=== PATIENT | male | born 1940 | race Caucasian/White ===

== ENCOUNTER 2017-06-27 00:38 | Inpatient (IN) | payer MEDICARE, SELFPAY ==
[2017-06-27] VITALS (15 sets, daily range): BP systolic 134–185; BP diastolic 79–116; PULSE 90–115; RESP 16–20; TEMP 36.9–37.6; O2SAT 95–100; BMI 39.5
--- NOTE | 2017-06-27 01:26 | CT_ITS ---
STUDY: CT ABDOMEN AND PELVIS WITHOUT CONTRAST REASON FOR EXAM: Male, 77 years old. Abdominal pain RADIATION DOSAGE (If Supplied By Facility): CTDIvol = ( 23.53 ) mGy, DLP = ( 1287.20 ) mGycm TECHNIQUE: Transaxial images were obtained from the dome of the diaphragm to the symphysis pubis without oral contrast, and without intravenous contrast. Sagittal and coronal images were reconstructed. Individualized dose optimization techniques were used for this CT. COMPARISON: None. FINDINGS: Peripheral fibrotic lung changes. The visualized portions of the heart are within normal limits. Normal liver. Distended gallbladder. Splenomegaly, with spleen measuring 15.6 cm in length. Splenic granulomata. Acute pancreatitis is noted with diffuse pancreatic edema and adjacent fatty stranding. No pseudocysts are seen at this time. Normal bilateral adrenal glands. Normal right kidney. Nonobstructing left renal calculi, the largest measuring 8 mm. Normal visualized stomach. Normal small intestine. Normal colon. The appendix is visualized and appears normal. There is diffuse atherosclerotic calcification of the abdominal aorta, without a demonstrated aneurysm. Normal inferior vena cava. Normal retroperitoneum. Normal urinary bladder. Normal abdominal wall. There are diffuse degenerative changes of the visualized lumbar spine. Metallic fragments near the right pubic bone. This may be related to remote trauma. CT/Abdomen/Pelvis without Cont IMPRESSION: Acute pancreatitis. No pseudocysts are seen. Distended gallbladder. No evidence of acute intestinal pathology or acute obstructive uropathy.. Electronically Signed: Ton Daly MD at 2:27 EST Tel , Service support ,
[2017-06-27] MEDS: Ondansetron 4 MG/2 ML Vial IV ×4 (01:32→17:50)
[2017-06-27 01:34] LABS: Absolute Lymphocyte Count 1.42 X10^3/ul (0.83-4.51); Absolute Neutrophil Count 14.9 X10^3/uL (2.0-7.7); Basophil# 0.04 X10^3/uL; Basophil% 0.2 % (0-1); Eosinophil# 0.23 X10^3/uL; Eosinophils% 1.2 % (0-5); Hemoglobin 14.5 g/dl (13.0-16.5); Lymphocyte # 1.42 X10^3/ul (4.0); Lymphocyte % 7.6 % (19-41); Mean Corp Hgb Conc 33.7 g/gl (32-36); Mean Corpuscular Hgb 30.7 pg (27.0-32.0); Mean Corpuscular Volume 91.1 fL (80-94); Mean Platelet Vol. 10.9 fl (6.2-12.0); Monocyte# 1.93 X10^3/uL; Monocyte% 10.4 % (0-10); Neutrophil # 14.92 X10^3/uL (2.7-7.7); Neutrophil % 80.2 % (47-70); Platelet Count 140 K/mm3 (150-450); RBC Distribution Width SD 46.1 fl (35.1-43.9); Red Blood Count 4.72 M/mm3 (4.6-6.2); White Blood Count 18.6 K/mm3 (4.4-11.0)
[2017-06-27 01:36] LABS: Differential Indicated SCAN CRITERIA MET; POSITIVE COUNT NO; POSITIVE DIFFERENTIAL YES; POSITIVE MORPHOLOGY NO
[2017-06-27 01:50] LABS: Differential Comment SCANNED
[2017-06-27 01:52] LABS: AST(SGOT) 52 U/L (15-37); Alanine Aminotransfer ALT/SGPT 25 U/L (12-78); Albumin, Serum 3.5 g/dL (3.4-5.0); Alkaline Phosphatase 79 U/L (45-117); Anion Gap 9 (5-15); BUN 14 mg/dL (7-18); BUN/Creat Ratio 13.1 RATIO (10-20); Bilirubin, Direct 0.15 mg/dL (0.00-0.30); Chloride 101 mmol/L (98-107); Creatinine, Serum 1.07 mg/dL (0.70-1.30); EST Glomerular Filtration Rate 71 mL/min (>60); Est Glom Filt Rate - Afr Amer 86 mL/min (>60); Estimated Creatinine Clearance 55.05 ml/min; Globulin 4.3 g/dL (2.2-4.2); Glucose 249 mg/dL (70-110); Potassium 4.8 mmol/L (3.5-5.1); Protein, Total 7.8 g/dL (6.4-8.2); Sodium Level 136 mmol/L (136-145)
[2017-06-27 02:41] LABS: Lactic Acid 2.7 mmol/L (0.4-2.0)
--- NOTE | 2017-06-27 02:41 | ED.RN ---
LAB RESULTED LACTIC 2.7
[2017-06-27] MEDS: 0.9% Normal Saline 1,000 ML 999 ML IV (03:31)
--- NOTE | 2017-06-27 04:08 | ED.DCSUM_ITS ---
- ER Visit Summary Date of Service: 06/27/17 Chief Complaint: Abdominal pain, nausea and vomiting History of Present Illness: The patient is a 77 M who has had the above symptoms for 4 days. He describes sharp pain in his epigastric area that radiates downward. He has had multiple episodes of nausea and vomiting. Nothing makes his pain better or worse. He denies diarrhea or constipation. He denies any urinary symptoms. At times he feels disoriented. He has not had a fever. He has never had any abdominal surgeries in the past. Physical Examination: Vital signs reviewed. HEENT exam unremarkable. Heart is regular rate and rhythm without murmurs. Lungs are clear to auscultation. Abdomen is soft with diffuse tenderness to palpation. There is some distention noted on exam. Extremities reveal no edema. Skin exam normal. Neurologic exam normal. Test Results: White blood cell count 18.6, glucose 249, AST 52, lactate 2.7. Lipase is still pending at this time. CAT scan of the abdomen pelvis without contrast reveals acute pancreatitis Emergency Department Course and Treatment: Patient was treated with saline as well as multiple doses of morphine. He was also given Zofran. The patient has never had pancreatitis in the past. I feel he requires admission for pain control and IV fluids Treatment Plan: Plan will be for admission for pain control and IV fluids due to acute pancreatitis Disposition: Admission Impression: Acute pancreatitis This note was generated with [employer] dictation software. It may contain incorrect words, spelling, and punctuation that were not noted in review of the chart prior to signing ED Disposition - Plan for ED Patient: Chief Complaint: Abd Pain Referrals: Caitlyn Allison MD [Primary Care Provider] -
[2017-06-27 04:42] LABS: Lipase 34672 U/L (73-393)
[2017-06-27 06:03] LABS: Reflex Lactate? Y
[2017-06-27 07:02] LABS: Lactic Acid 1.8 mmol/L (0.4-2.0)
--- NOTE | 2017-06-27 07:26 | HP.PCM_ITS ---
Problem List (1) Acute pancreatitis Status: Acute (2) Hyperglycemia Status: Acute History of Present Illness Date of Admission: 06/27/17 Chief Complaint: abdominal pain The patient is a 77 year old M, presents with epigastric abdominal pain that began about 4 days ago and has persisted.Describes pain as severe 10/10, continuous, nonradiating, without kown aggravators, transiently resolved by analgesics. Reports associated nausea, dry heaving. No fever, diarrhea. No h/ o alcohol consumption. ED eval remarkable for bp 184/102, WBC 18.6, lactic acid 2.7, glu 249, lipase 34 ,672. Was given iv analgesics, IVF N/S. [] Past Medical History Past Medical History (Chronic Problems): Chronic Problems Coronary artery arteriosclerosis (Chronic) Type 2 diabetes mellitus (Chronic) Hyperlipidemia (Chronic) Gastro-esophageal reflux (Chronic) Hypertension (Chronic) Diabetic neuropathy (Chronic) Chronic respiratory failure (Chronic) Pulmonary fibrosis (Chronic) Obstructive sleep apnea of adult (Chronic) Hypogonadism male (Chronic) Allergies No Known Allergies Allergy (Verified 06/27/17 00:39) Home Medications: Ambulatory Orders Medication Instructions Recorded Alfuzosin HCl [Uroxatral] 10 mg PO QHS 11/09/13 Ascorbate Calcium [Vitamin C] 500 mg PO DAILY 11/09/13 Aspirin [Aspirin, Baby] 81 mg PO DAILY@0800 11/09/13 Atorvastatin Calcium [Lipitor] 10 mg PO QHS 11/09/13 Flaxseed Oil/[place] 3,6,9 [Sv 1 each PO DAILY 11/09/13 Flaxseed Oil 1,300 mg Sftgl] Gabapentin [Neurontin] 600 mg PO TID 11/09/13 Lactobacillus Acidophilus 1 each PO DAILY 11/09/13 [Acidophilus] Magnesium Oxide 500 mg PO DAILY 11/09/13 Mometasone Furoate [Nasonex] 2 spray NASAL DAILY PRN PRN 11/09/13 Multivit-Min/FA/Lycopene/Lut 1 each PO DAILY 11/09/13 [Centrum Silver Tablet] Nitroglycerin [Nitrostat] 0.4 mg SUBLINGUAL Q5M PRN 11/09/13 Potassium Chloride [K-Dur] 20 meq PO BID 11/09/13 Tizanidine HCl [Zanaflex] 4 mg PO QHS 11/09/13 Vitamin B Complex 1 each PO DAILY 11/09/13 Azathioprine 100 mg PO DAILY 10/27/14 Benazepril HCl [Lotensin] 10 mg PO DAILY 10/27/14 Glucosamine Sulf/Chondroitin A 1 each PO BID 10/27/14 [Glucosamine-Chondroitin Cap] Ranitidine [Zantac] 150 mg PO BID 06/27/17 Sitagliptin Phosphate [Januvia] 100 mg PO DAILY 06/27/17 Surgical History: herniorrhaphy Psychiatric History: No pertinent psych hx Smoking Status: Former smoker Tobacco Use: Non-smoker Alcohol: None Drugs: None Review of Systems Constitutional: Reports: Anorexia Eyes: Denies: Conjunctivae Inflammation, Redness HEENT: Denies: Head Aches, Sinus Congestion, Sinus Drainage Cardiovascular: Denies: Chest Pain, Palpitations Respiratory: Denies: Cough, Shortness of breath at rest, Sputum production Gastrointestinal: Reports: Abdominal Pain, Nausea. Denies: Constipation, Diarrhea Genitourinary: Denies: Dysuria Musculoskeletal: Denies: Joint Pain, Joint Tenderness Skin: Denies: Rash, Wounds Neurological: Denies: Numbness, Tingling, Focal weakness Psychiatric: Denies: Anxiety, Depression, Homicidal Ideations, Suicidal Ideations Endocrine: Denies: Heat/ Cold Intolerance Hematologic/ Lymphatic: Denies: Easy Bruising, Easy Bleeding VTE Information - Inpt Only VTE Present on Admission: No VTE Mechan Device Prophylaxis: SCD's VTE Pharm Prophylaxis ordered?: Yes Patient Problems: Active and Suspected Problems Acute pancreatitis (Acute) Hyperglycemia (Acute) - Physical Exam General: Alert, Oriented x3, Cooperative HEENT: Atraumatic, PERRLA Oral: Dry Mucosa Neck: Supple, No JVD, Negative Carotid Bruits Lungs: Clear to auscultation, Normal air movement Cardiovascular: Regular rate, No murmurs Abdomen: Soft, Hypoactive Bowel Sounds, Obese, Guarding, Tender Extremities: No edema, Capillary Refill Less than 3 Seconds Skin: No rashes, No breakdown Musculoskeletal: No Tenderness to Palpation of Joints or Extremities Lymphatic: No Cervical, Supraclavicular, or Inguinal Adenopathy Neurological: Cranial nerves II-XII grossly intact Psych/Mental Status: Normal Affect, Appropriate Vital Signs Temp Pulse Resp BP Pulse Ox 98.5 F 103 H 16 183/116 H 96 06/27/17 06:14 06/27/17 06:08 06/27/17 06:08 06/27/17 06:08 06/27/17 06:08 Oxygen Flow Rate 4 Oxygen Delivery Method Room Air Weight: 117.934 kg Body Mass Index (BMI) 39.5 Laboratory Tests Past 24 Hrs 06/27/17 06/27/17 06/27/17 01:23 01:23 02:00 WBC 18.6 H RBC 4.72 Hgb 14.5 Hct 43.0 MCV 91.1 MCH 30.7 MCHC 33.7 RDW 14.0 RDW Differential 46.1 H Plt Count 140 L MPV 10.9 Immature Gran % (Auto) 0.400 Neut % (Auto) 80.2 H Lymph % (Auto) 7.6 L [place] % (Auto) 10.4 H Eos % (Auto) 1.2 Baso % (Auto) 0.2 Absolute Neuts (auto) 14.9 H Absolute Lymphs (auto) 1.42 Total Counted Not Reportable Differential Comment SCANNED Diff Path Review May foll Sodium 136 Potassium 4.8 Chloride 101 Carbon Dioxide 26.0 Anion Gap 9 BUN 14 Creatinine 1.07 Estim Creat Clear Calc 55.05 Est GFR (MDRD) Af Amer 86 Est GFR (MDRD) Non-Af 71 BUN/Creatinine Ratio 13.1 Glucose 249 H Lactic Acid 2.7 H Calcium 9.0 Total Bilirubin 0.70 Direct Bilirubin 0.15 AST 52 H ALT 25 Alkaline Phosphatase 79 Total Protein 7.8 Albumin 3.5 Globulin 4.3 H Lipase 12973 H 06/27/17 06:23 WBC RBC Hgb Hct MCV MCH MCHC RDW RDW Differential Plt Count MPV Immature Gran % (Auto) Neut % (Auto) Lymph % (Auto) [place] % (Auto) Eos % (Auto) Baso % (Auto) Absolute Neuts (auto) Absolute Lymphs (auto) Total Counted Differential Comment Diff Path Review Sodium Potassium Chloride Carbon Dioxide Anion Gap BUN Creatinine Estim Creat Clear Calc Est GFR (MDRD) Af Amer Est GFR (MDRD) Non-Af BUN/Creatinine Ratio Glucose Lactic Acid 1.8 Calcium Total Bilirubin Direct Bilirubin AST ALT Alkaline Phosphatase Total Protein Albumin Globulin Lipase Assessment/Plan Active and Suspected Problems Acute pancreatitis (Acute) Hyperglycemia (Acute) 1. Acute pancreatiti, etiology unclear. Gallbladder uss, TG. NPO, IV analgesics, IV Zofran. Lipase am 2. Dehydration. IVF N/S 3. DM 2 with hyperglycemia. SSI 4. Leukocytosis, likely reactive. No fever. Monitor 5. Hyperlactatemia, due to dehydration. IVF N/S 6. Obesity, likely due to excess calorie intake. BMI 39.5. Lifestyle modification. 7. SARAH. Nocturnal Bipap Code Visit Inpatient E&M: 30988 Init Hosp L3
[2017-06-27] MEDS: 0.9% Normal Saline 1,000 ML 150 ML IV ×3 (08:23→22:41)
--- NOTE | 2017-06-27 09:06 | NURSING ---
Patient states he does not know home meds and uses [facility] pharmacy. Called pharmacy and verified patient's home meds.
[2017-06-27] MEDS: Heparin Injection 5,000 UNITS/ML Syringe 5000 UNITS SC ×2 (11:30→21:44)
--- NOTE | 2017-06-27 12:09 | US_ITS ---
STUDY: ULTRASOUND GALLBLADDER REASON FOR VISIT: Male, 77 years old. Pancreatitis. TECHNIQUE: Ultrasound evaluation of the gallbladder was performed with real-time and static nunez-scale imaging. TECHNICAL QUALITY: Adequate. COMPARISON: None. FINDINGS: Gallbladder: Normal distended gallbladder. The gallbladder wall measures 2.8 mm. There is a negative sonographic Jhaveri's sign. There is no pericholecystic fluid. There are no gallstones. Common Bile Duct (C.B.D.): The common bile duct measures 7.4 mm. Fatty liver. Normal right kidney. The pancreas was not visualized secondary to bowel gas. US/Gallbladder IMPRESSION: No gallbladder without wall thickening, stones or pericholecystic fluid. Fatty changes of the liver. Normal right kidney. Nonvisualized pancreas secondary to bowel gas. Electronically Signed: Cely Minor MD at 15:40 EST , Service support ,
[2017-06-27 12:24] LABS: Pathologist Review Reviewed
[2017-06-27 13:03] LABS: Cholesterol 86 mg/dL (200); High Density Lipoprotein 48 mg/dL; Triglycerides 149 mg/dL; Very Low Density Lipoprotein 30 mg/dL (5-40)
--- NOTE | 2017-06-27 14:15 | PCM.PN.BLA ---
Progress Note The patient was admitted earlier today by and I reviewed his H&P. I also saw the patient, evaluated her and obtained relevant history, performed a clinical exam reviewed diagnostic data. Patient is a 77-year-old male who presented with abdominal pain and found to have acute pancreatitis; we are treating him with bowel rest and IV fluids. Change his IV fluids to D5 half normal saline. Will obtain gallbladder ultrasound.
--- NOTE | 2017-06-27 16:13 | CASEMGMT ---
CRESCENCIO CARTAGENA Face to Face with patient for initial transition planning/care coordination assessment. RN MITZI introduced self and role at [facility]. Patient lying in bed, alert and oriented. Patient willing to participate in assessment and is able to answer all questions appropriately. Care providers, pharmacy, and demographics verified. See link attached. Patient wishes to discharge home, denies need for home health at this time. Patient states he has no further needs or concerns at this time. CM to follow for discharge planning needs that may arise. Disposition Plan: Patient to return home with family support and follow-up plans in place. No anticipated needs at this time.
[2017-06-27] MEDS: 0.9% NaCl Peripheral Flush Adult/Peds IV (21:46)
[2017-06-28] VITALS (15 sets, daily range): BP systolic 158–173; BP diastolic 89–99; PULSE 95–129; RESP 18–24; TEMP 37–37.5; O2SAT 96–98
[2017-06-28 00:25] LABS: Bedside Glucose 202 mg/dL (70-110)
[2017-06-28] MEDS: Ondansetron 4 MG/2 ML Vial IV ×3 (02:26→19:43)
[2017-06-28] MEDS: 0.9% NaCl Peripheral Flush Adult/Peds IV (02:26)
[2017-06-28] MEDS: 0.9% Normal Saline 1,000 ML 150 ML IV (05:38)
[2017-06-28 05:46] LABS: Bedside Glucose 221 mg/dL (70-110)
[2017-06-28 06:39] LABS: Absolute Lymphocyte Count 0.57 X10^3/ul (0.83-4.51); Absolute Neutrophil Count 14.6 X10^3/uL (2.0-7.7); Basophil# 0.01 X10^3/uL; Basophil% 0.1 % (0-1); Eosinophil# 0.01 X10^3/uL; Eosinophils% 0.1 % (0-5); Hemoglobin 13.6 g/dl (13.0-16.5); Lymphocyte # 0.57 X10^3/ul (4.0); Lymphocyte % 3.3 % (19-41); Mean Corp Hgb Conc 32.4 g/gl (32-36); Mean Corpuscular Hgb 30.2 pg (27.0-32.0); Mean Corpuscular Volume 93.1 fL (80-94); Mean Platelet Vol. 10.8 fl (6.2-12.0); Monocyte# 1.85 X10^3/uL; Monocyte% 10.9 % (0-10); Neutrophil # 14.55 X10^3/uL (2.7-7.7); Neutrophil % 85.4 % (47-70); Platelet Count 113 K/mm3 (150-450); RBC Distribution Width CV 14.4 % (11.6-14.6); RBC Distribution Width SD 48.7 fl (35.1-43.9); Red Blood Count 4.51 M/mm3 (4.6-6.2)
[2017-06-28 06:41] LABS: Differential Indicated SCAN CRITERIA MET; POSITIVE COUNT NO; POSITIVE DIFFERENTIAL YES; POSITIVE MORPHOLOGY NO
[2017-06-28 06:58] LABS: Anion Gap 11 (5-15); BUN 16 mg/dL (7-18); BUN/Creat Ratio 16.7 RATIO (10-20); Calcium,Total 8.3 mg/dL (8.5-10.1); Chloride 104 mmol/L (98-107); Creatinine, Serum 0.96 mg/dL (0.70-1.30); EST Glomerular Filtration Rate 81 mL/min (>60); Est Glom Filt Rate - Afr Amer 98 mL/min (>60); Estimated Creatinine Clearance 61.35 ml/min; Glucose 221 mg/dL (70-110); Lipase 3037 U/L (73-393); Potassium 4.2 mmol/L (3.5-5.1); Sodium Level 140 mmol/L (136-145)
[2017-06-28 07:15] LABS: Differential Comment SCANNED
[2017-06-28] MEDS: Heparin Injection 5,000 UNITS/ML Syringe 5000 UNITS SC ×2 (08:53→21:36)
--- NOTE | 2017-06-28 11:13 | CT_ITS ---
STUDY: CT BRAIN WITHOUT CONTRAST REASON FOR EXAM: Male, 77 years old. Severe headache. RADIATION DOSAGE (If Supplied By Facility): CTDIvol = ( 44.99 ) mGy, DLP = ( 846.73 ) mGycm TECHNIQUE: Transaxial CT imaging of the brain was performed without administration of intravenous contrast material. Multiplanar reformations are submitted for interpretation. Individualized dose optimization techniques were used for this CT. COMPARISON: Prior comparison studies are not available for review at this time. FINDINGS: Normal soft tissue structures. Normal calvarium. There is moderate cerebral atrophy with widening of the extra-axial spaces and ventricular dilatation. There are areas of decreased attenuation within the white matter tracts of the supratentorial brain, consistent with microvascular disease changes. Normal basal ganglia and thalami. Normal brainstem. There is mild cerebellar atrophy. There is no intracranial hemorrhage. There is minimal atherosclerotic calcification of intracranial arteries. There is mucoperiosteal inflammatory disease of the paranasal sinuses consistent with mild chronic sinusitis. CT/Brain/Head without Contrast IMPRESSION: 1. Chronic involutional changes of the brain. 2. No CT evidence of acute intracranial hemorrhage. Electronically Signed: Tasha Gann MD at 12:31 EST , Service support ,
[2017-06-28] MEDS: Dext 5%-0.45% NS 1,000 ML 100 ML IV ×2 (12:03→21:38)
[2017-06-28] MEDS: Acetaminophen 325 MG Tablet 650 MG PO ×2 (12:03→19:49)
[2017-06-28 12:21] LABS: Bedside Glucose 218 mg/dL (70-110)
--- NOTE | 2017-06-28 14:51 | PCM.PN.HOSP ---
Patient Problems: Active and Suspected Problems Acute pancreatitis (Acute) Hyperglycemia (Acute) Subjective: CC: Abdominal pain., FERREIRA. He Presented with abdominal pain and found to have acute pancreatitis, gallbladder ultrasound diagnosed to cholelithiasis Vitals/I&O's: Vital Signs Temp Pulse Resp BP Pulse Ox 98.6 F 105 H 18 162/89 H 97 06/28/17 14:36 06/28/17 14:36 06/28/17 14:36 06/28/17 14:36 06/28/17 14:36 Oxygen Flow Rate 4 Oxygen Delivery Method Nasal Cannula Weight: 118.8 kg Body Mass Index (BMI) 39.5 Intake and Output for Last 24 Hours 06/26/17 06/27/17 06/28/17 23:59 23:59 23:59 Intake Total 1660 / 1660 1995 Output Total 1050 / 1050 Balance 1660 / 1660 946 / 946 General: Alert, Oriented x3 Oral: Moist Mucosa Neck: Supple Lungs: Clear to auscultation Cardiovascular: Normal S1, Normal S2 Abdomen: Bowel Sounds Present, Soft, Non Tender Extremities: No edema Neurological: Cranial nerves II-XII grossly intact, Motor Exam 5/5 strength throughout Laboratory Results 06/28/17 00:12: POC Glucose 202 H 06/28/17 05:36: POC Glucose 221 H 06/28/17 05:40: WBC 17.0 H, RBC 4.51 L, Hgb 13.6, Hct 42.0, MCV 93.1, MCH 30.2, MCHC 32.4, RDW 14.4, RDW Differential 48.7 H, Plt Count 113 L, MPV 10.8, Immature Gran % (Auto) 0.200, Neut % (Auto) 85.4 H, Lymph % (Auto) 3.3 L, [place] % (Auto) 10.9 H, Eos % (Auto) 0.1, Baso % (Auto) 0.1, Absolute Neuts (auto) 14.6 H, Absolute Lymphs (auto) 0.57 L, Total Counted Not Reportable, Differential Comment SCANNED, Diff Path Review October06/28/17 05:40: Sodium 140, Potassium 4.2, Chloride 104, Carbon Dioxide 25.0, Anion Gap 11, BUN 16, Creatinine 0.96, Estim Creat Clear Calc 61.35, Est GFR (MDRD) Af Amer 98, Est GFR (MDRD) Non-Af 81, BUN/Creatinine Ratio 16.7, Glucose 221 H, Calcium 8.3 L, Lipase 3037 H 06/28/17 11:58: POC Glucose 218 H Current Medications Acetaminophen (Tylenol) 650 mg PO Q6H PRN PRN PRN Reason: HEADACHE Last Admin: 06/28/17 12:03 Dose: 650 mg Heparin Sodium (Porcine) () 5,000 units SC BID MISAEL Last Admin: 06/28/17 08:53 Dose: 5,000 units Dextrose/Sodium Chloride () 1,000 mls @ 100 mls/hr IV .Q10H MISAEL Last Admin: 06/28/17 12:03 Dose: 100 mls/hr Insulin Aspart (Novolog Flexpen (Bkc)) 0 units SC Q6 MISAEL PRN Reason: Protocol Last Admin: 06/28/17 12:05 Dose: 1 units Magnesium Hydroxide (Milk Of Magnesia) 30 ml PO DAILY PRN PRN PRN Reason: Constipation Morphine Sulfate (Morphine) 1 mg IV Q3H PRN PRN PRN Reason: SEVERE PAIN (6-10/10) Last Admin: 06/28/17 08:40 Dose: 1 mg Ondansetron HCl (Zofran) 4 mg IV Q6H PRN PRN PRN Reason: NAUSEA/VOMITING Last Admin: 06/28/17 08:40 Dose: 4 mg Sodium Chloride () 5 - 30 ml IV UD PRN PRN Reason: SALINE FLUSH Last Admin: 06/28/17 02:26 Dose: 10 ml Assessment/Plan Active and Suspected Problems Acute pancreatitis (Acute) Hyperglycemia (Acute) 1. Acute pancreatitis; continue bowel rest, IV fluids changed to D5 half normal saline, pain control. GB bladder ultrasound did not show any abnormality and his liver enzymes does not show cholestatic pattern. 2. Dehydration; improved with hydration. 3. DM 2 with hyperglycemia; continue on regular insulin sliding scale. 4. Leukocytosis, likely reactive. No fever. Will Monitor. 5. Headache; CT scan of the brain was obtained and did not show any acute intracranial process. 6. Obesity; weight loss recommended.
[2017-06-28 17:26] LABS: Bedside Glucose 237 mg/dL (70-110)
[2017-06-28] MEDS: Labetalol 20 MG/4 ML Vial 10 MG IV (22:27)
[2017-06-28 23:55] LABS: Bedside Glucose 233 mg/dL (70-110)
[2017-06-28] MEDS: Albuterol 2.5 MG/3 ML VIAL.NEB. INHALATION (23:59)
[2017-06-29] VITALS (16 sets, daily range): BP systolic 133–163; BP diastolic 78–91; PULSE 90–109; RESP 20–24; TEMP 36.1–37.4; O2SAT 96–99
[2017-06-29] MEDS: Acetaminophen 325 MG Tablet 650 MG PO ×2 (02:11→15:30)
[2017-06-29] MEDS: Ondansetron 4 MG/2 ML Vial IV (05:28)
--- NOTE | 2017-06-29 05:31 | NURSING ---
Went into room with RT to see if Pt would take breathing treatment. Pt stated that is hurt too much from the coughing in his abdomen. Told Pt I would give him a blanket to splint his stomach and Morphine for the pain and pt still would not take treatment.
[2017-06-29] MEDS: Labetalol 20 MG/4 ML Vial 10 MG IV (05:41)
[2017-06-29 05:56] LABS: Bedside Glucose 202 mg/dL (70-110)
[2017-06-29 06:25] LABS: Lipase 888 U/L (73-393)
[2017-06-29] MEDS: Dext 5%-0.45% NS 1,000 ML 100 ML IV ×2 (07:27→18:12)
--- NOTE | 2017-06-29 09:42 | PCM.PN.HOSP ---
Patient Problems: Active and Suspected Problems Acute pancreatitis (Acute) Hyperglycemia (Acute) Subjective: C: Abdominal pain. This is 77-year-old male who presented with abdominal pain and found to have acute pancreatitis, his gallbladder ultrasound does not show cholelithiasis or abnormality. He is improving with bowel rest, IV fluids and antiemetics. Vitals/I&O's: Vital Signs Temp Pulse Resp BP Pulse Ox 98 F 95 20 H 141/86 H 98 06/29/17 09:00 06/29/17 09:00 06/29/17 09:00 06/29/17 09:00 06/29/17 09:00 Oxygen Flow Rate 4 Oxygen Delivery Method Nasal Cannula Weight: 120 kg Body Mass Index (BMI) 39.5 Intake and Output for Last 24 Hours 06/27/17 06/28/17 06/29/17 23:59 23:59 23:59 Intake Total 1660 / 1660 2808 / 2808 650 / 650 Output Total 1700 / 1700 275 / 275 Balance 1660 / 1660 1108 / 1108 375 / 375 General: Alert Oral: Moist Mucosa Neck: Supple Lungs: Clear to auscultation Cardiovascular: Regular rate, Normal S1, Normal S2 Abdomen: Tender Laboratory Results 06/28/17 11:58: POC Glucose 218 H 06/28/17 17:16: POC Glucose 237 H 06/28/17 23:33: POC Glucose 233 H 06/29/17 05:31: Lipase 888 H 06/29/17 05:34: POC Glucose 202 H Current Medications Acetaminophen (Tylenol) 650 mg PO Q6H PRN PRN PRN Reason: HEADACHE Last Admin: 06/29/17 02:11 Dose: 650 mg Albuterol Sulfate (Ventolin Aerosols) 2.5 mg INHALATION Q4H.RT PRN PRN Reason: SOB &/OR WHEEZING Last Admin: 06/28/17 23:59 Dose: 2.5 mg Heparin Sodium (Porcine) () 5,000 units SC BID MISAEL Last Admin: 06/28/17 21:36 Dose: 5,000 units Dextrose/Sodium Chloride () 1,000 mls @ 100 mls/hr IV .Q10H MISAEL Last Admin: 06/29/17 07:27 Dose: 100 mls/hr Insulin Aspart (Novolog Flexpen (Bkc)) 0 units SC Q6 MISAEL PRN Reason: Protocol Last Admin: 06/29/17 05:35 Dose: 1 units Labetalol HCl (Trandate) 10 mg IV Q4H PRN PRN PRN Reason: BLOOD PRESSURE Last Admin: 06/29/17 05:41 Dose: 10 mg Magnesium Hydroxide (Milk Of Magnesia) 30 ml PO DAILY PRN PRN PRN Reason: Constipation Morphine Sulfate (Morphine) 1 mg IV Q3H PRN PRN PRN Reason: SEVERE PAIN (6-10/10) Last Admin: 06/29/17 05:28 Dose: 1 mg Ondansetron HCl (Zofran) 4 mg IV Q6H PRN PRN PRN Reason: NAUSEA/VOMITING Last Admin: 06/29/17 05:28 Dose: 4 mg Sodium Chloride () 5 - 30 ml IV UD PRN PRN Reason: SALINE FLUSH Last Admin: 06/28/17 02:26 Dose: 10 ml Assessment/Plan Active and Suspected Problems Acute pancreatitis (Acute) Hyperglycemia (Acute) 1. Acute pancreatitis; continue pain control and antiemetics, will start on clear liquids today. 2. Dehydration; improved with IV hydration. 3. DM 2 with hyperglycemia; continue on regular insulin sliding scale for now. 4. Leukocytosis, likely reactive. No fever. Will Monitor. 5. Headache;improved, CT scan of the brain was obtained and did not show any acute intracranial process. 6. Obesity; weight loss recommended. 7. DVT prophylaxis with subcutaneous heparin. Code Visit Inpatient E&M: 95546 Subs Hosp L2
[2017-06-29] MEDS: Heparin Injection 5,000 UNITS/ML Syringe 5000 UNITS SC ×2 (11:34→21:48)
[2017-06-29 14:16] LABS: Bedside Glucose 234 mg/dL (70-110)
[2017-06-29 18:16] LABS: Bedside Glucose 268 mg/dL (70-110)
[2017-06-29] MEDS: Magnesium Hydroxide 30 ML UDC PO (23:21)
[2017-06-30] VITALS (13 sets, daily range): BP systolic 142–160; BP diastolic 78–86; PULSE 94–104; RESP 20–24; TEMP 36.8–37.7; O2SAT 95–99
[2017-06-30 00:50] LABS: Bedside Glucose 225 mg/dL (70-110)
[2017-06-30] MEDS: Acetaminophen 325 MG Tablet 650 MG PO ×2 (03:52→21:08)
[2017-06-30] MEDS: Dext 5%-0.45% NS 1,000 ML 100 ML IV ×2 (03:52→13:52)
[2017-06-30 06:36] LABS: Absolute Lymphocyte Count 0.56 X10^3/ul (0.83-4.51); Absolute Neutrophil Count 10.1 X10^3/uL (2.0-7.7); Eosinophil# 0.11 X10^3/uL; Eosinophils% 0.9 % (0-5); Hematocrit 36.9 % (40-54); Hemoglobin 11.8 g/dl (13.0-16.5); Lymphocyte # 0.56 X10^3/ul (4.0); Lymphocyte % 4.6 % (19-41); Mean Corpuscular Hgb 29.6 pg (27.0-32.0); Mean Corpuscular Volume 92.7 fL (80-94); Mean Platelet Vol. 10.6 fl (6.2-12.0); Monocyte% 12.2 % (0-10); Neutrophil % 82.1 % (47-70); Platelet Count 103 K/mm3 (150-450); RBC Distribution Width CV 14.3 % (11.6-14.6); RBC Distribution Width SD 48.6 fl (35.1-43.9); Red Blood Count 3.98 M/mm3 (4.6-6.2); White Blood Count 12.3 K/mm3 (4.4-11.0)
[2017-06-30 06:40] LABS: Anion Gap 7 (5-15); BUN 12 mg/dL (7-18); BUN/Creat Ratio 17.9 RATIO (10-20); Chloride 99 mmol/L (98-107); Creatinine, Serum 0.67 mg/dL (0.70-1.30); EST Glomerular Filtration Rate 122 mL/min (>60); Est Glom Filt Rate - Afr Amer 147 mL/min (>60); Glucose 232 mg/dL (70-110); Potassium 3.6 mmol/L (3.5-5.1); Sodium Level 136 mmol/L (136-145)
[2017-06-30 06:42] LABS: Differential Indicated SCAN CRITERIA MET; POSITIVE COUNT NO; POSITIVE DIFFERENTIAL YES; POSITIVE MORPHOLOGY NO
[2017-06-30 07:21] LABS: Bedside Glucose 231 mg/dL (70-110)
[2017-06-30] MEDS: Heparin Injection 5,000 UNITS/ML Syringe 5000 UNITS SC ×2 (10:33→21:09)
[2017-06-30] MEDS: Magnesium Hydroxide 30 ML UDC PO (10:33)
[2017-06-30] MEDS: Docusate Sodium 100 MG Capsule PO (10:40)
[2017-06-30 12:56] LABS: Bedside Glucose 239 mg/dL (70-110)
--- NOTE | 2017-06-30 14:07 | PCM.PN.HOSP ---
Patient Problems: Active and Suspected Problems Acute pancreatitis (Acute) Hyperglycemia (Acute) Subjective: Patient was seen and examined. Feels very bloated, constipated, has had 2 laxatives and a stool softener and yet to move his bowels. Denied any nausea or fever. Still has upper abdominal discomfort. Vitals/I&O's: Vital Signs Temp Pulse Resp BP Pulse Ox 98.4 F 100 20 H 150/80 H 98 06/30/17 12:00 06/30/17 12:00 06/30/17 12:00 06/30/17 12:00 06/30/17 12:00 Oxygen Flow Rate 4 Oxygen Delivery Method Nasal Cannula Weight: 120 kg Body Mass Index (BMI) 39.5 Intake and Output for Last 24 Hours 06/28/17 06/29/17 06/30/17 23:59 23:59 23:59 Intake Total 2808 / 2808 2130 / 2130 2282 / 2282 Output Total 1700 / 1700 725 / 725 1100 / 1100 Balance 1108 / 1108 1405 / 1405 1182 / 1182 General: Alert, Oriented x3, Cooperative, No apparent distress, - - obese HEENT: Atraumatic, PERRLA, EOMI, Normocephalic Oral: Moist Mucosa Neck: Supple Lungs: Clear to auscultation, Normal air movement Cardiovascular: Regular rate, Regular Rhythm, Normal S1, Normal S2, No murmurs Abdomen: Bowel Sounds Present, Soft, Non Tender, Non-Distended, No Hepato-splenomegaly Extremities: No edema Skin: No rashes, No breakdown Musculoskeletal: No Tenderness to Palpation of Joints or Extremities Lymphatic: No Cervical, Supraclavicular, or Inguinal Adenopathy Neurological: Cranial nerves II-XII grossly intact, Motor Exam 5/5 strength throughout Psych/Mental Status: Normal Affect, Appropriate Laboratory Results 06/29/17 13:49: POC Glucose 234 H 06/29/17 18:06: POC Glucose 268 H 06/29/17 21:36: POC Glucose 225 H 06/30/17 05:35: WBC 12.3 H, RBC 3.98 L, Hgb 11.8 L, Hct 36.9 L, MCV 92.7, MCH 29.6, MCHC 32.0, RDW 14.3, RDW Differential 48.6 H, Plt Count 103 L, MPV 10.6, Immature Gran % (Auto) 0.200, Neut % (Auto) 82.1 H, Lymph % (Auto) 4.6 L, [place] % (Auto) 12.2 H, Eos % (Auto) 0.9, Baso % (Auto) 0.0, Absolute Neuts (auto) 10.1 H, Absolute Lymphs (auto) 0.56 L, Total Counted Not Reportable, Differential Comment 06/30/17 05:35: Sodium 136, Potassium 3.6, Chloride 99, Carbon Dioxide 30.0, Anion Gap 7, BUN 12, Creatinine 0.67 L, Estim Creat Clear Calc 58.90, Est GFR (MDRD) Af Amer 147, Est GFR (MDRD) Non-Af 122, BUN/Creatinine Ratio 17.9, Glucose 232 H, Calcium 8.0 L 06/30/17 07:05: POC Glucose 231 H 06/30/17 12:14: POC Glucose 239 H Current Medications Acetaminophen (Tylenol) 650 mg PO Q6H PRN PRN PRN Reason: HEADACHE Last Admin: 06/30/17 03:52 Dose: 650 mg Albuterol Sulfate (Ventolin Aerosols) 2.5 mg INHALATION Q4H.RT PRN PRN Reason: SOB &/OR WHEEZING Last Admin: 06/28/17 23:59 Dose: 2.5 mg Docusate Sodium (Colace) 100 mg PO BID [facility] Last Admin: 06/30/17 10:40 Dose: 100 mg Heparin Sodium (Porcine) () 5,000 units SC BID [facility] Last Admin: 06/30/17 10:33 Dose: 5,000 units Dextrose/Sodium Chloride () 1,000 mls @ 100 mls/hr IV .Q10H [facility] Last Admin: 06/30/17 13:52 Dose: 100 mls/hr Insulin Aspart (Novolog Flexpen (Bkc)) 0 units SC ACHS [facility] PRN Reason: Protocol Last Admin: 06/30/17 12:19 Dose: 2 units Labetalol HCl (Trandate) 10 mg IV Q4H PRN PRN PRN Reason: BLOOD PRESSURE Last Admin: 06/29/17 05:41 Dose: 10 mg Magnesium Hydroxide (Milk Of Magnesia) 30 ml PO DAILY PRN PRN PRN Reason: Constipation Last Admin: 06/30/17 10:33 Dose: 30 ml Morphine Sulfate (Morphine) 1 mg IV Q3H PRN PRN PRN Reason: SEVERE PAIN (6-10/10) Last Admin: 06/29/17 21:48 Dose: 1 mg Ondansetron HCl (Zofran) 4 mg IV Q6H PRN PRN PRN Reason: NAUSEA/VOMITING Last Admin: 06/29/17 05:28 Dose: 4 mg Sodium Chloride () 5 - 30 ml IV UD PRN PRN Reason: SALINE FLUSH Last Admin: 06/28/17 02:26 Dose: 10 ml Assessment/Plan Active and Suspected Problems Acute pancreatitis (Acute) Hyperglycemia (Acute) 77y/o male with past medical history of hypertension, DM type II with neuropathy, SARAH, seen with abdominal pain ongoing for 4 days and diagnosed with acute pancreatitis. 1. Acute pancreatitis, not much improved, still feels bloated, on clear sips of water, pain controlled, slight elevation in WBC count, will continue to manage conservatively. 2. Dehydration, improved, on IV fluids. 3. DM 2, sugars are uncontrolled, will check HbA1c, continue with insulin sliding scale and accucheks. 4. Headache, resolved 5. Obesity; weight loss recommended. 6. DVT prophylaxis with subcutaneous heparin. This note was generated with Zomato dictation software. It may contain incorrect words, spelling, and punctuation that were not noted in checking the note before signing. Code Visit Inpatient E&M: 65442 Subs Hosp L2
--- NOTE | 2017-06-30 14:10 | PN_ITS ---
Patient Problems: Active and Suspected Problems Acute pancreatitis (Acute) Hyperglycemia (Acute) Subjective: Patient was seen and examined. Feels very bloated, constipated, has had 2 laxatives and a stool softener and yet to move his bowels. Denied any nausea or fever. Still has upper abdominal discomfort. Vitals/I&O's: Vital Signs Temp Pulse Resp BP Pulse Ox 98.4 F 100 20 H 150/80 H 98 06/30/17 12:00 06/30/17 12:00 06/30/17 12:00 06/30/17 12:00 06/30/17 12:00 Oxygen Flow Rate 4 Oxygen Delivery Method Nasal Cannula Weight: 120 kg Body Mass Index (BMI) 39.5 Intake and Output for Last 24 Hours 06/28/17 06/29/17 06/30/17 23:59 23:59 23:59 Intake Total 2808 / 2808 2130 / 2130 2282 / 2282 Output Total 1700 / 1700 725 / 725 1100 / 1100 Balance 1108 / 1108 1405 / 1405 1182 / 1182 General: Alert, Oriented x3, Cooperative, No apparent distress, - - obese HEENT: Atraumatic, PERRLA, EOMI, Normocephalic Oral: Moist Mucosa Neck: Supple Lungs: Clear to auscultation, Normal air movement Cardiovascular: Regular rate, Regular Rhythm, Normal S1, Normal S2, No murmurs Abdomen: Bowel Sounds Present, Soft, Non Tender, Non-Distended, No Hepato- splenomegaly Extremities: No edema Skin: No rashes, No breakdown Musculoskeletal: No Tenderness to Palpation of Joints or Extremities Lymphatic: No Cervical, Supraclavicular, or Inguinal Adenopathy Neurological: Cranial nerves II-XII grossly intact, Motor Exam 5/5 strength throughout Psych/Mental Status: Normal Affect, Appropriate Laboratory Results 06/29/17 13:49: POC Glucose 234 H 06/29/17 18:06: POC Glucose 268 H 06/29/17 21:36: POC Glucose 225 H 06/30/17 05:35: WBC 12.3 H, RBC 3.98 L, Hgb 11.8 L, Hct 36.9 L, MCV 92.7, MCH 29.6, MCHC 32.0, RDW 14.3, RDW Differential 48.6 H, Plt Count 103 L, MPV 10.6, Immature Gran % (Auto) 0.200, Neut % (Auto) 82.1 H, Lymph % (Auto) 4.6 L, [place] % (Auto) 12.2 H, Eos % (Auto) 0.9, Baso % (Auto) 0.0, Absolute Neuts (auto) 10.1 H, Absolute Lymphs (auto) 0.56 L, Total Counted Not Reportable, Differential Comment 06/30/17 05:35: Sodium 136, Potassium 3.6, Chloride 99, Carbon Dioxide 30.0, Anion Gap 7, BUN 12, Creatinine 0.67 L, Estim Creat Clear Calc 58.90, Est GFR ( MDRD) Af Amer 147, Est GFR (MDRD) Non-Af 122, BUN/Creatinine Ratio 17.9, Glucose 232 H, Calcium 8.0 L 06/30/17 07:05: POC Glucose 231 H 06/30/17 12:14: POC Glucose 239 H Current Medications Acetaminophen (Tylenol) 650 mg PO Q6H PRN PRN PRN Reason: HEADACHE Last Admin: 06/30/17 03:52 Dose: 650 mg Albuterol Sulfate (Ventolin Aerosols) 2.5 mg INHALATION Q4H.RT PRN PRN Reason: SOB &/OR WHEEZING Last Admin: 06/28/17 23:59 Dose: 2.5 mg Docusate Sodium (Colace) 100 mg PO BID [facility] Last Admin: 06/30/17 10:40 Dose: 100 mg Heparin Sodium (Porcine) () 5,000 units SC BID [facility] Last Admin: 06/30/17 10:33 Dose: 5,000 units Dextrose/Sodium Chloride () 1,000 mls @ 100 mls/hr IV .Q10H [facility] Last Admin: 06/30/17 13:52 Dose: 100 mls/hr Insulin Aspart (Novolog Flexpen (Bkc)) 0 units SC ACHS [facility] PRN Reason: Protocol Last Admin: 06/30/17 12:19 Dose: 2 units Labetalol HCl (Trandate) 10 mg IV Q4H PRN PRN PRN Reason: BLOOD PRESSURE Last Admin: 06/29/17 05:41 Dose: 10 mg Magnesium Hydroxide (Milk Of Magnesia) 30 ml PO DAILY PRN PRN PRN Reason: Constipation Last Admin: 06/30/17 10:33 Dose: 30 ml Morphine Sulfate (Morphine) 1 mg IV Q3H PRN PRN PRN Reason: SEVERE PAIN (6-10/10) Last Admin: 06/29/17 21:48 Dose: 1 mg Ondansetron HCl (Zofran) 4 mg IV Q6H PRN PRN PRN Reason: NAUSEA/VOMITING Last Admin: 06/29/17 05:28 Dose: 4 mg Sodium Chloride () 5 - 30 ml IV UD PRN PRN Reason: SALINE FLUSH Last Admin: 06/28/17 02:26 Dose: 10 ml Assessment/Plan Active and Suspected Problems Acute pancreatitis (Acute) Hyperglycemia (Acute) 77y/o male with past medical history of hypertension, DM type II with neuropathy , SARAH, seen with abdominal pain ongoing for 4 days and diagnosed with acute pancreatitis. 1. Acute pancreatitis, not much improved, still feels bloated, on clear sips of water, pain controlled, slight elevation in WBC count, will continue to manage conservatively. 2. Dehydration, improved, on IV fluids. 3. DM 2, sugars are uncontrolled, will check HbA1c, continue with insulin sliding scale and accucheks. 4. Headache, resolved 5. Obesity; weight loss recommended. 6. DVT prophylaxis with subcutaneous heparin. This note was generated with MPSTOR dictation software. It may contain incorrect words, spelling, and punctuation that were not noted in checking the note before signing. Code Visit Inpatient E&M: 31326 Subs Hosp L2
[2017-06-30 15:51] LABS: Hemoglobin A1c 9.2 % (4.2-6.3)
[2017-06-30 17:26] LABS: Bedside Glucose 224 mg/dL (70-110)
[2017-06-30] MEDS: MELATONIN 3 MG TABLET PO (21:09)
[2017-06-30] MEDS: Ondansetron 4 MG/2 ML Vial IV (21:13)
[2017-06-30 22:11] LABS: Bedside Glucose 232 mg/dL (70-110)
[2017-07-01] VITALS (12 sets, daily range): BP systolic 141–154; BP diastolic 70–74; PULSE 92–100; RESP 20–28; TEMP 36.2–37.2; O2SAT 95–100
[2017-07-01] MEDS: Dext 5%-0.45% NS 1,000 ML 100 ML IV (00:42)
[2017-07-01] MEDS: 0.9% NaCl Peripheral Flush Adult/Peds IV (00:50)
[2017-07-01 07:11] LABS: Absolute Lymphocyte Count 0.78 X10^3/ul (0.83-4.51); Absolute Neutrophil Count 10.8 X10^3/uL (2.0-7.7); Basophil# 0.02 X10^3/uL; Basophil% 0.1 % (0-1); Eosinophil# 0.23 X10^3/uL; Eosinophils% 1.7 % (0-5); Hematocrit 36.1 % (40-54); Lymphocyte # 0.78 X10^3/ul (4.0); Lymphocyte % 5.8 % (19-41); Mean Corp Hgb Conc 33.2 g/gl (32-36); Mean Corpuscular Hgb 30.6 pg (27.0-32.0); Mean Corpuscular Volume 92.1 fL (80-94); Mean Platelet Vol. 9.9 fl (6.2-12.0); Monocyte# 1.46 X10^3/uL; Monocyte% 10.9 % (0-10); Neutrophil # 10.82 X10^3/uL (2.7-7.7); Neutrophil % 81.1 % (47-70); Platelet Count 127 K/mm3 (150-450); RBC Distribution Width CV 14.1 % (11.6-14.6); RBC Distribution Width SD 46.8 fl (35.1-43.9); Red Blood Count 3.92 M/mm3 (4.6-6.2); White Blood Count 13.4 K/mm3 (4.4-11.0)
[2017-07-01 07:30] LABS: POSITIVE COUNT NO; POSITIVE DIFFERENTIAL NO; POSITIVE MORPHOLOGY NO
[2017-07-01 07:31] LABS: Bedside Glucose 240 mg/dL (70-110)
[2017-07-01 07:32] LABS: Anion Gap 7 (5-15); BUN 13 mg/dL (7-18); BUN/Creat Ratio 18.9 RATIO (10-20); Calcium,Total 8.2 mg/dL (8.5-10.1); Chloride 100 mmol/L (98-107); Creatinine, Serum 0.69 mg/dL (0.70-1.30); EST Glomerular Filtration Rate 118 mL/min (>60); Est Glom Filt Rate - Afr Amer 143 mL/min (>60); Glucose 244 mg/dL (70-110); Potassium 3.8 mmol/L (3.5-5.1); Sodium Level 138 mmol/L (136-145)
[2017-07-01 08:45] LABS: Lipase 678 U/L (73-393)
[2017-07-01] MEDS: Bisacodyl 10 MG Suppository RECTAL (11:22)
[2017-07-01] MEDS: Docusate Sodium 100 MG Capsule PO (11:23)
[2017-07-01] MEDS: Heparin Injection 5,000 UNITS/ML Syringe 5000 UNITS SC ×2 (11:24→23:44)
[2017-07-01] MEDS: Fleet Enema 1 ML RECTAL (11:24)
--- NOTE | 2017-07-01 12:06 | RAD_ITS ---
STUDY: X-RAY CHEST REASON FOR EXAM: Male, 77 years old. Shortness of breath TECHNIQUE: Single frontal view COMPARISON: None. FINDINGS: The lungs are not fully expanded. Bilateral patchy infiltrates and interstitial prominence, left more than right Cardiomegaly. Normal mediastinum and torrey. Normal visualized pulmonary arteries. Calcified aortic arch and descending thoracic aorta. Degenerative changes of the thoracic spine. Normal visualized ribs, clavicles, and shoulders. There is no demonstrated abnormality of the visualized soft tissue structures of the upper abdomen. RAD/Chest 1 View (Portable) IMPRESSION: Cardiomegaly. Bilateral patchy infiltrates and interstitial prominence, left more than right. Electronically Signed: Topher Del Cid DO at 18:08 EST Tel [phone], Service support ,
--- NOTE | 2017-07-01 12:07 | RAD_ITS ---
STUDY: X-RAY - ABDOMEN/PELVIS REASON FOR EXAM: Male, 77 years old. Constipation TECHNIQUE: 3 views COMPARISON: None. FINDINGS: Normal visualized lung bases. There is an unremarkable bowel gas pattern. There is no demonstrated free abdominal air. There are calcifications over the left renal shadow up to 1 cm likely related to stones. There are surgical clips over the right inguinal region. Normal soft tissue structures. Degenerative vertebral changes. RAD/Abdomen Single View (Portable) IMPRESSION: Possible left renal stones. Electronically Signed: Topher Del Cid DO at 18:10 EST Tel [phone], Service support ,
--- NOTE | 2017-07-01 12:44 | EKG12_ITS ---
Test Reason : Blood Pressure : / mmHG Vent. Rate : 101 BPM Atrial Rate : 101 BPM P-R Int : 172 ms QRS Dur : 072 ms QT Int : 338 ms P-R-T Axes : 017 012 029 degrees QTc Int : 438 ms Sinus tachycardia Anterior infarct , age undetermined Abnormal ECG When compared with ECG of 01-MAR-2011 10:11, Vent. rate has increased BY 40 BPM Anterior infarct is now Present Confirmed by SHANICE SALDANA, JOEL ([id number]), editorial specialist AMALIA RUIZ ([id number]) on 07/09/2017 4:32:12 PM Referred By: LISSETTE Confirmed By:JOEL PRASAD MD
[2017-07-01] MEDS: Dext 5%-0.45% NS 1,000 ML 30 ML IV (13:07)
[2017-07-01 13:15] LABS: Bedside Glucose 250 mg/dL (70-110)
[2017-07-01] MEDS: Sertraline 50 MG Tablet PO (13:58)
--- NOTE | 2017-07-01 14:48 | PCM.PN.HOSP ---
Patient Problems: Active and Suspected Problems Acute pancreatitis (Acute) Hyperglycemia (Acute) Subjective: Patient seen and examined. Appears to have a flat affect. He wants his room very dark; does not want to interact. Complains of mild shortness of breath, denies chest pain no dizziness or palpitations. Objective: PHYSICAL EXAM: General: Alert, Oriented x3, Cooperative, No apparent distress, obese HEENT: Atraumatic, PERRLA, EOMI, Normocephalic Oral: Moist Mucosa Neck: Supple Lungs: Decreased breath sounds at the lung bases especially, wheezes heard Cardiovascular: Regular rate, Regular Rhythm, Normal S1, Normal S2, No murmurs Abdomen: Bowel Sounds Present, Soft, Non Tender, Non-Distended, No Hepato-splenomegaly Extremities: No edema Skin: No rashes, No breakdown Musculoskeletal: No Tenderness to Palpation of Joints or Extremities Lymphatic: No Cervical, Supraclavicular, or Inguinal Adenopathy Neurological: Cranial nerves II-XII grossly intact, Motor Exam 5/5 strength throughout Psych/Mental Status: Normal Affect, Appropriate Vitals/I&O's: Vital Signs Temp Pulse Resp BP Pulse Ox 98.9 F 100 22 H 154/74 H 100 07/01/17 14:11 07/01/17 14:11 07/01/17 14:11 07/01/17 14:11 07/01/17 14:11 Oxygen Flow Rate 4 Oxygen Delivery Method Nasal Cannula Weight: 120.6 kg Body Mass Index (BMI) 39.5 Intake and Output for Last 24 Hours 06/29/17 06/30/17 07/01/17 23:59 23:59 23:59 Intake Total 2130 / 2130 3192 / 3192 2494 / 2494 Output Total 725 / 725 1100 / 1100 1120 / 1120 Balance 1405 / 1405 2092 / 2092 1374 / 1374 Laboratory Results 06/30/17 03:53: Hemoglobin A1c 9.2 H 06/30/17 17:14: POC Glucose 224 H 06/30/17 21:15: POC Glucose 232 H 07/01/17 06:55: WBC 13.4 H, RBC 3.92 L, Hgb 12.0 L, Hct 36.1 L, MCV 92.1, MCH 30.6, MCHC 33.2, RDW 14.1, RDW Differential 46.8 H, Plt Count 127 L, MPV 9.9, Immature Gran % (Auto) 0.400, Neut % (Auto) 81.1 H, Lymph % (Auto) 5.8 L, [place] % (Auto) 10.9 H, Eos % (Auto) 1.7, Baso % (Auto) 0.1, Absolute Neuts (auto) 10.8 H, Absolute Lymphs (auto) 0.78 L, Total Counted Not Reportable 07/01/17 06:55: Sodium 138, Potassium 3.8, Chloride 100, Carbon Dioxide 31.0, Anion Gap 7, BUN 13, Creatinine 0.69 L, Estim Creat Clear Calc 58.90, Est GFR (MDRD) Af Amer 143, Est GFR (MDRD) Non-Af 118, BUN/Creatinine Ratio 18.9, Glucose 244 H, Calcium 8.2 L 07/01/17 06:55: Lipase 678 H 07/01/17 06:58: POC Glucose 240 H 07/01/17 13:04: POC Glucose 250 H Current Medications Acetaminophen (Tylenol) 650 mg PO Q6H PRN PRN PRN Reason: HEADACHE Last Admin: 06/30/17 21:08 Dose: 650 mg Albuterol Sulfate (Ventolin Aerosols) 2.5 mg INHALATION Q4H.RT PRN PRN Reason: SOB &/OR WHEEZING Last Admin: 06/28/17 23:59 Dose: 2.5 mg Bisacodyl (Dulcolax) 10 mg RECTAL DAILY [facility] Last Admin: 07/01/17 13:58 Dose: Not Given Docusate Sodium (Colace) 100 mg PO BID [facility] Last Admin: 07/01/17 11:23 Dose: 100 mg Heparin Sodium (Porcine) () 5,000 units SC BID [facility] Last Admin: 07/01/17 11:24 Dose: 5,000 units Dextrose/Sodium Chloride () 1,000 mls @ 30 mls/hr IV .[id number] [facility] Last Admin: 07/01/17 13:07 Dose: 30 mls/hr Insulin Aspart (Novolog Flexpen (Bkc)) 0 units SC ACHS [facility] PRN Reason: Protocol Last Admin: 07/01/17 13:06 Dose: 2 units Insulin Detemir (Levemir (Bkc)) 5 units SC QHS [facility] Labetalol HCl (Trandate) 10 mg IV Q4H PRN PRN PRN Reason: BLOOD PRESSURE Last Admin: 06/29/17 05:41 Dose: 10 mg Magnesium Hydroxide (Milk Of Magnesia) 30 ml PO DAILY PRN PRN PRN Reason: Constipation Last Admin: 06/30/17 10:33 Dose: 30 ml Melatonin (Melatonin) 3 mg PO QHS PRN PRN Reason: INSOMNIA Last Admin: 06/30/17 21:09 Dose: 3 mg Morphine Sulfate (Morphine) 1 mg IV Q3H PRN PRN PRN Reason: SEVERE PAIN (6-10/10) Last Admin: 07/01/17 00:50 Dose: 1 mg Ondansetron HCl (Zofran) 4 mg IV Q6H PRN PRN PRN Reason: NAUSEA/VOMITING Last Admin: 06/30/17 21:13 Dose: 4 mg Sertraline HCl (Zoloft) 50 mg PO DAILY [facility] Last Admin: 07/01/17 13:58 Dose: 50 mg Sodium Chloride () 5 - 30 ml IV UD PRN PRN Reason: SALINE FLUSH Last Admin: 07/01/17 00:50 Dose: 5 ml Assessment/Plan Active and Suspected Problems Acute pancreatitis (Acute) Hyperglycemia (Acute) 77y/o male with past medical history of hypertension, DM type II with neuropathy, SARAH, seen with abdominal pain ongoing for 4 days and diagnosed with acute pancreatitis. 1. Acute pancreatitis likely secondary to Januvia, not much improved clinically, lipase are revised improved to 678, still feels bloated, on clear sips of water, pain controlled, slight elevation in WBC count, will continue to monitor. 2. Abdominal distention/constipation, persistent, patient not ambulating, will get a KUB and suppository bisacodyl 3. Acute respiratory insufficiency likely secondary to atelectasis this is fluid overload, will decrease IV fluid rate, check chest x-ray 4. DM type 2, the A1c is 9.2, sugars are uncontrolled, will start on Levemir 5 units QHS, continue with insulin sliding scale and accucheks. 5. Headache, resolved 6. Obesity; weight loss recommended. 7. DVT prophylaxis with subcutaneous heparin. This note was generated with [employer] software. It may contain incorrect words, spelling, and punctuation that were not noted in checking the note before signing.
--- NOTE | 2017-07-01 14:59 | PN_ITS ---
Patient Problems: Active and Suspected Problems Acute pancreatitis (Acute) Hyperglycemia (Acute) Subjective: Patient seen and examined. Appears to have a flat affect. He wants his room very dark; does not want to interact. Complains of mild shortness of breath, denies chest pain no dizziness or palpitations. Objective: PHYSICAL EXAM: General: Alert, Oriented x3, Cooperative, No apparent distress, obese HEENT: Atraumatic, PERRLA, EOMI, Normocephalic Oral: Moist Mucosa Neck: Supple Lungs: Decreased breath sounds at the lung bases especially, wheezes heard Cardiovascular: Regular rate, Regular Rhythm, Normal S1, Normal S2, No murmurs Abdomen: Bowel Sounds Present, Soft, Non Tender, Non-Distended, No Hepato- splenomegaly Extremities: No edema Skin: No rashes, No breakdown Musculoskeletal: No Tenderness to Palpation of Joints or Extremities Lymphatic: No Cervical, Supraclavicular, or Inguinal Adenopathy Neurological: Cranial nerves II-XII grossly intact, Motor Exam 5/5 strength throughout Psych/Mental Status: Normal Affect, Appropriate Vitals/I&O's: Vital Signs Temp Pulse Resp BP Pulse Ox 98.9 F 100 22 H 154/74 H 100 07/01/17 14:11 07/01/17 14:11 07/01/17 14:11 07/01/17 14:11 07/01/17 14:11 Oxygen Flow Rate 4 Oxygen Delivery Method Nasal Cannula Weight: 120.6 kg Body Mass Index (BMI) 39.5 Intake and Output for Last 24 Hours 06/29/17 06/30/17 07/01/17 23:59 23:59 23:59 Intake Total 2130 / 2130 3192 / 3192 2494 / 2494 Output Total 725 / 725 1100 / 1100 1120 / 1120 Balance 1405 / 1405 2092 / 2092 1374 / 1374 Laboratory Results 06/30/17 03:53: Hemoglobin A1c 9.2 H 06/30/17 17:14: POC Glucose 224 H 06/30/17 21:15: POC Glucose 232 H 07/01/17 06:55: WBC 13.4 H, RBC 3.92 L, Hgb 12.0 L, Hct 36.1 L, MCV 92.1, MCH 30.6, MCHC 33.2, RDW 14.1, RDW Differential 46.8 H, Plt Count 127 L, MPV 9.9, Immature Gran % (Auto) 0.400, Neut % (Auto) 81.1 H, Lymph % (Auto) 5.8 L, [place] % (Auto) 10.9 H, Eos % (Auto) 1.7, Baso % (Auto) 0.1, Absolute Neuts (auto) 10.8 H, Absolute Lymphs (auto) 0.78 L, Total Counted Not Reportable 07/01/17 06:55: Sodium 138, Potassium 3.8, Chloride 100, Carbon Dioxide 31.0, Anion Gap 7, BUN 13, Creatinine 0.69 L, Estim Creat Clear Calc 58.90, Est GFR ( MDRD) Af Amer 143, Est GFR (MDRD) Non-Af 118, BUN/Creatinine Ratio 18.9, Glucose 244 H, Calcium 8.2 L 07/01/17 06:55: Lipase 678 H 07/01/17 06:58: POC Glucose 240 H 07/01/17 13:04: POC Glucose 250 H Current Medications Acetaminophen (Tylenol) 650 mg PO Q6H PRN PRN PRN Reason: HEADACHE Last Admin: 06/30/17 21:08 Dose: 650 mg Albuterol Sulfate (Ventolin Aerosols) 2.5 mg INHALATION Q4H.RT PRN PRN Reason: SOB &/OR WHEEZING Last Admin: 06/28/17 23:59 Dose: 2.5 mg Bisacodyl (Dulcolax) 10 mg RECTAL DAILY [facility] Last Admin: 07/01/17 13:58 Dose: Not Given Docusate Sodium (Colace) 100 mg PO BID [facility] Last Admin: 07/01/17 11:23 Dose: 100 mg Heparin Sodium (Porcine) () 5,000 units SC BID [facility] Last Admin: 07/01/17 11:24 Dose: 5,000 units Dextrose/Sodium Chloride () 1,000 mls @ 30 mls/hr IV .[id number] [facility] Last Admin: 07/01/17 13:07 Dose: 30 mls/hr Insulin Aspart (Novolog Flexpen (Bkc)) 0 units SC ACHS [facility] PRN Reason: Protocol Last Admin: 07/01/17 13:06 Dose: 2 units Insulin Detemir (Levemir (Bkc)) 5 units SC QHS [facility] Labetalol HCl (Trandate) 10 mg IV Q4H PRN PRN PRN Reason: BLOOD PRESSURE Last Admin: 06/29/17 05:41 Dose: 10 mg Magnesium Hydroxide (Milk Of Magnesia) 30 ml PO DAILY PRN PRN PRN Reason: Constipation Last Admin: 06/30/17 10:33 Dose: 30 ml Melatonin (Melatonin) 3 mg PO QHS PRN PRN Reason: INSOMNIA Last Admin: 06/30/17 21:09 Dose: 3 mg Morphine Sulfate (Morphine) 1 mg IV Q3H PRN PRN PRN Reason: SEVERE PAIN (6-10/10) Last Admin: 07/01/17 00:50 Dose: 1 mg Ondansetron HCl (Zofran) 4 mg IV Q6H PRN PRN PRN Reason: NAUSEA/VOMITING Last Admin: 06/30/17 21:13 Dose: 4 mg Sertraline HCl (Zoloft) 50 mg PO DAILY [facility] Last Admin: 07/01/17 13:58 Dose: 50 mg Sodium Chloride () 5 - 30 ml IV UD PRN PRN Reason: SALINE FLUSH Last Admin: 07/01/17 00:50 Dose: 5 ml Assessment/Plan Active and Suspected Problems Acute pancreatitis (Acute) Hyperglycemia (Acute) 77y/o male with past medical history of hypertension, DM type II with neuropathy , SARAH, seen with abdominal pain ongoing for 4 days and diagnosed with acute pancreatitis. 1. Acute pancreatitis likely secondary to Januvia, not much improved clinically , lipase are revised improved to 678, still feels bloated, on clear sips of water, pain controlled, slight elevation in WBC count, will continue to monitor. 2. Abdominal distention/constipation, persistent, patient not ambulating, will get a KUB and suppository bisacodyl 3. Acute respiratory insufficiency likely secondary to atelectasis this is fluid overload, will decrease IV fluid rate, check chest x-ray 4. DM type 2, the A1c is 9.2, sugars are uncontrolled, will start on Levemir 5 units QHS, continue with insulin sliding scale and accucheks. 5. Headache, resolved 6. Obesity; weight loss recommended. 7. DVT prophylaxis with subcutaneous heparin. This note was generated with [employer] software. It may contain incorrect words, spelling, and punctuation that were not noted in checking the note before signing.
[2017-07-01 15:02] LABS: Pathologist Review Reviewed
[2017-07-01 16:51] LABS: Bedside Glucose 197 mg/dL (70-110)
[2017-07-01 23:56] LABS: Bedside Glucose 215 mg/dL (70-110)
[2017-07-02] VITALS (9 sets, daily range): BP systolic 148–163; BP diastolic 71–93; PULSE 88–94; RESP 18–26; TEMP 36.8–37; O2SAT 95–98
--- NOTE | 2017-07-02 01:57 | NURSING ---
Pt 'accidently' dislodged IV this shift. After 2 attempts by this nurse pt refused to have any other nurse attempt to start. Became increasingly irritable during the night, even refusing some of his night meds. Pt left in room with O2 at 4L, and has been monitored Q2H. Denies present need.
[2017-07-02 05:53] LABS: Absolute Neutrophil Count 9.9 X10^3/uL (2.0-7.7); Basophil# 0.02 X10^3/uL; Basophil% 0.2 % (0-1); Eosinophil# 0.21 X10^3/uL; Eosinophils% 1.7 % (0-5); Hematocrit 36.2 % (40-54); Hemoglobin 11.6 g/dl (13.0-16.5); Lymphocyte % 10.4 % (19-41); Mean Corpuscular Hgb 29.6 pg (27.0-32.0); Mean Corpuscular Volume 92.3 fL (80-94); Mean Platelet Vol. 9.9 fl (6.2-12.0); Monocyte# 0.96 X10^3/uL; Monocyte% 7.7 % (0-10); Neutrophil # 9.93 X10^3/uL (2.7-7.7); Neutrophil % 79.5 % (47-70); Platelet Count 117 K/mm3 (150-450); RBC Distribution Width CV 14.3 % (11.6-14.6); RBC Distribution Width SD 48.7 fl (35.1-43.9); Red Blood Count 3.92 M/mm3 (4.6-6.2); White Blood Count 12.5 K/mm3 (4.4-11.0)
[2017-07-02 05:55] LABS: Anion Gap 7 (5-15); BUN 14 mg/dL (7-18); BUN/Creat Ratio 21.9 RATIO (10-20); Calcium,Total 8.4 mg/dL (8.5-10.1); Chloride 96 mmol/L (98-107); Creatinine, Serum 0.64 mg/dL (0.70-1.30); EST Glomerular Filtration Rate 129 mL/min (>60); Est Glom Filt Rate - Afr Amer 156 mL/min (>60); Glucose 190 mg/dL (70-110); Potassium 3.4 mmol/L (3.5-5.1); Sodium Level 136 mmol/L (136-145)
[2017-07-02 06:10] LABS: POSITIVE COUNT NO; POSITIVE DIFFERENTIAL NO; POSITIVE MORPHOLOGY NO
[2017-07-02 07:15] LABS: Bedside Glucose 197 mg/dL (70-110)
[2017-07-02] MEDS: Heparin Injection 5,000 UNITS/ML Syringe 5000 UNITS SC ×2 (10:23→20:01)
[2017-07-02] MEDS: Sertraline 50 MG Tablet PO (10:23)
--- NOTE | 2017-07-02 11:01 | CASEMGMT ---
Addendum entered by Anushka Messina 07/02/17 13:38: Social Work Call from Beth at [facility] stating that she does not have any male beds. Reviewed list of [place] facilities. [facility] and [facility] do not have beds. [facility] and [facility] have availability. Pt states no to [facility] and SW faxes referral to [facility]. Will await determination. LEON Leung Original Note: Social Work Face to face with the pt to discuss discharge planning. Introduced self and role at [facility]. The pt reports that he lives with his in a mobile home. Review his therapy notes and inquire about the pt using furniture for stabilization. Pt states that he has an old rollator, but does not use it. Inquire if he would like SW to look into a wheeled walker or standard walker for stabilization with ambulation and pt declines. Discuss placement and pt is agreeable and states that he is struggling with some of his ADLs. Review list of area SNF's and pt requests to have a referral made to [facility]. Initial referral faxed, and vm left with Beth, recruiter coordinator. SW to continue to follow and assist with discharge planning. Plan: SNF pending acceptance. LEON Leung
[2017-07-02 12:05] LABS: Bedside Glucose 250 mg/dL (70-110)
--- NOTE | 2017-07-02 15:36 | CASEMGMT ---
Social Work Call from Rylee at [facility] stating that they are able to accept the pt tomorrow, 07/03. Notified pt and , Caitlyn. When on the phone with Caitlyn she requests that SW inform the pt that she is arranging a care package for him with a sound engineering technician, puzzles and his winter coat, and that they have already picked up his prescriptions. She also would like SW to ask if he is ok with her visiting if she can get a ride into the hospital as he has not spoken to her since his admission. Relayed information to pt and he states he only wants the coat, and does give verbal permission for Caitlyn to visit. Pt states I don't know how I'm gonna do it. Request that he elaborate and he states take care of her and me. Pt states that he is overwhelmed with her and his care and fears that he will not be able to care for her. States that she does have an aide, but unable to tell me how often. Discuss counseling services in the area as well as caregiver support groups and pt scoffs, and states I don't need that. Offer to have a therapist from [facility] come to speak with him as it can be nice to have a listening ear that is not necessarily connected to the concern at hand. Pt declines and is made aware that SW is available if he changes his mind. Pt denies SI or HI. Placed call to Caitlyn update and she states that she will try to be in this evening. Plan: [facility] for rehabilitation. LEON Leung
[2017-07-02 16:50] LABS: Bedside Glucose 221 mg/dL (70-110)
[2017-07-02] MEDS: Mag Hydrox/Al Hydrox/Simeth 30 ML UDC PO (16:58)
[2017-07-02 20:11] LABS: Bedside Glucose 217 mg/dL (70-110)
[2017-07-03 03:39] VITALS: BP 183/99; PULSE 88; RESP 18; TEMP 36.5; O2SAT 98
[2017-07-03] MEDS: Lisinopril 20 MG Tablet PO (04:03)
--- NOTE | 2017-07-03 04:07 | NURSING ---
Home medications are not all ordered, I will pass this along to day shift for Dr to address.
[2017-07-03 07:21] LABS: Bedside Glucose 202 mg/dL (70-110)
[2017-07-03 07:25] VITALS: PULSE 100
[2017-07-03 07:36] VITALS: O2SAT 93
[2017-07-03] MEDS: Acetaminophen 325 MG Tablet 650 MG PO (07:36)
[2017-07-03 07:39] VITALS: BP 145/73; PULSE 95
[2017-07-03 09:41] LABS: Absolute Lymphocyte Count 0.67 X10^3/ul (0.83-4.51); Absolute Neutrophil Count 9.9 X10^3/uL (2.0-7.7); Basophil# 0.03 X10^3/uL; Basophil% 0.2 % (0-1); Eosinophil# 0.21 X10^3/uL; Eosinophils% 1.6 % (0-5); Hematocrit 36.3 % (40-54); Hemoglobin 11.8 g/dl (13.0-16.5); Lymphocyte # 0.67 X10^3/ul (4.0); Lymphocyte % 5.2 % (19-41); Mean Corp Hgb Conc 32.5 g/gl (32-36); Mean Corpuscular Hgb 29.7 pg (27.0-32.0); Mean Corpuscular Volume 91.4 fL (80-94); Monocyte# 1.95 X10^3/uL; Monocyte% 15.1 % (0-10); Neutrophil # 9.89 X10^3/uL (2.7-7.7); Neutrophil % 76.5 % (47-70); Platelet Count 142 K/mm3 (150-450); RBC Distribution Width CV 14.1 % (11.6-14.6); RBC Distribution Width SD 46.2 fl (35.1-43.9); Red Blood Count 3.97 M/mm3 (4.6-6.2); White Blood Count 12.9 K/mm3 (4.4-11.0)
[2017-07-03 09:44] LABS: Differential Indicated SCAN CRITERIA MET; POSITIVE COUNT NO; POSITIVE DIFFERENTIAL YES; POSITIVE MORPHOLOGY NO
[2017-07-03 09:51] LABS: ALB/GLOB Ratio 0.6 RATIO (0.9-2.4); AST(SGOT) 42 U/L (15-37); Alanine Aminotransfer ALT/SGPT 33 U/L (12-78); Albumin, Serum 2.7 g/dL (3.4-5.0); Alkaline Phosphatase 93 U/L (45-117); Anion Gap 5 (5-15); BUN 14 mg/dL (7-18); BUN/Creat Ratio 21.6 RATIO (10-20); Calcium,Total 8.7 mg/dL (8.5-10.1); Chloride 97 mmol/L (98-107); Creatinine, Serum 0.65 mg/dL (0.70-1.30); EST Glomerular Filtration Rate 127 mL/min (>60); Est Glom Filt Rate - Afr Amer 153 mL/min (>60); Globulin 4.2 g/dL (2.2-4.2); Glucose 191 mg/dL (70-110); Potassium 3.6 mmol/L (3.5-5.1); Protein, Total 6.9 g/dL (6.4-8.2); Sodium Level 138 mmol/L (136-145)
[2017-07-03 10:22] VITALS: BP 137/103; PULSE 94; RESP 20; TEMP 37.1; O2SAT 97
--- NOTE | 2017-07-03 10:29 | PCM.TXEXTCAR ---
- Diet 07/03/17 10:26 Diet: Full Liquid Liquid Consistency:: Regular/Thin Is pt able to select menu?: No Liquid Consistency:: Regular/Thin Advance diet as can be tolerated to cardiac and carb controlled diet - Routine Orders/Code Status O2 Liters per Minute: 4 O2 Frequency: Continuous Keep PO Greater than or Equal to (%): 94 - Encourage use of incentive spirometer every 1-2 hours Routine Lab Work: CBC - within 3 days, BMP - within 3 days - Wound(s) RLE Wound Type: Abrasion - Therapies Physical Therapy: Eval and Treat Occupational Therapy: Eval and Treat - Allergies/Procedures Done in Hospital Allergies/Adverse Reactions: Allergies No Known Allergies Allergy (Verified 06/27/17 00:39) Procedures: None - Type of Care/Length of Stay Estimated LOS: Convalescent Care Less Than 30 days Type of Care Needed: Skilled Rehab Potential: Fair Prognosis: Fair - Additional Orders/Day of Discharge Day of Discharge: 07/03/17 - Dietary and Speech Recommendations Dietitian Recommendations/Changes: Rec adv diet as tolerated to 2000 calorie controlled, low fat, no gastric stimulant. Will provide Ensure Clear w/ meals while on clear liquid diet - Follow Up Care Primary Care Physician: Caitlyn Allison MD [Primary Care Provider] - Please follow up with your Primary Care Physician in: within 2 weeks of discharge
--- NOTE | 2017-07-03 10:34 | PCM.DC.SUM ---
Discharge Date and Diagnosis Date of Admission: 06/27/17 Date of Discharge: 07/03/17 - Primary Discharge Diagnosis Active and Suspected Problems Acute pancreatitis (Acute) Hyperglycemia (Acute) - Secondary Discharge Diagnosis Chronic Problems Coronary artery arteriosclerosis (Chronic) Type 2 diabetes mellitus (Chronic) Hyperlipidemia (Chronic) Gastro-esophageal reflux (Chronic) Hypertension (Chronic) Diabetic neuropathy (Chronic) Chronic respiratory failure (Chronic) Pulmonary fibrosis (Chronic) Obstructive sleep apnea of adult (Chronic) Hypogonadism male (Chronic) Hospital Course and Treatment Imaging Results: Clinical Impression(s) from Imaging Studies Abdomen/Pelvis CT 06/27/17 01:26 IMPRESSION: Acute pancreatitis. No pseudocysts are seen. Distended gallbladder. No evidence of acute intestinal pathology or acute obstructive uropathy.. Electronically Signed: Ton Daly MD at 2:27 EST Tel , Service support , Gallbladder Ultrasound 06/27/17 12:09 IMPRESSION: No gallbladder without wall thickening, stones or pericholecystic fluid. Fatty changes of the liver. Normal right kidney. Nonvisualized pancreas secondary to bowel gas. Electronically Signed: Cely Minor MD at 15:40 EST , Service support , Brain CT 06/28/17 11:13 IMPRESSION: 1. Chronic involutional changes of the brain. 2. No CT evidence of acute intracranial hemorrhage. Electronically Signed: Tasha Gann MD at 12:31 EST , Service support , Chest X-Ray 07/01/17 12:06 IMPRESSION: Cardiomegaly. Bilateral patchy infiltrates and interstitial prominence, left more than right. Electronically Signed: Topher Del Cid DO at 18:08 EST Tel [phone], Service support , KUB X-Ray 07/01/17 12:07 IMPRESSION: Possible left renal stones. Electronically Signed: Topher Del Cid DO at 18:10 EST Tel [phone], Service support , None Operations: None Procedures: None Summary of Care Provided: 77y/o male with past medical history of hypertension, DM type II with neuropathy, SARAH, admitted with abdominal pain ongoing for 4 days and diagnosed with acute pancreatitis. It was admitted to telemetry floor, managed conservatively with n.p.o., IV fluids and pain management. Was found to have a flat affect and did not want to partake in any kind of activity. Prefers to have his room dark. Over the course of his stay in the hospital, he was found to be hypoxic, slightly tachycardic, IV fluids were adjusted, received a dose of Lasix, with improvement. Patient is typically on 4 L of oxygen at home. Active management was as follow-up: 1. Acute pancreatitis likely secondary to Januvia, actually improved over the course of the hospital stay, discharged on full liquid diet with advancement as he can tolerate. 2. Abdominal distention/constipation, persistent, changes made to stool regimen, with successful passage of bowel movements 3. Acute on chronic respiratory insufficiency likely secondary to atelectasis, he is on 4 L chronically at home, was on same at discharge 4. DM type 2, the A1c is 9.2, sugars are uncontrolled, started on Levemir 5 units QHS, insulin sliding scale and Accu-Cheks 5. Headache, resolved 6. Obesity; weight loss recommended. 7. Depression, started on Zoloft Discharge Diet: Low fat/ Low Cholesterol, 2000 mg Sodium Diet, Carb Control Diet Discharge Activity: Return to Normal Activity Home Medications: Medications to take at Discharge Alfuzosin HCl [Uroxatral] 10 mg PO QHS 11/09/13 Ascorbate Calcium [Vitamin C] 500 mg PO DAILY 11/09/13 Aspirin [Aspirin, Baby] 81 mg PO DAILY@0800 11/09/13 Atorvastatin Calcium [Lipitor] 10 mg PO QHS 11/09/13 Flaxseed Oil/[place] 3,6,9 [Sv Flaxseed Oil 1,300 mg Sftgl] 1 each PO DAILY 11/09/13 Gabapentin [Neurontin] 600 mg PO TID 11/09/13 Lactobacillus Acidophilus [Acidophilus] 1 each PO DAILY 11/09/13 Magnesium Oxide 500 mg PO DAILY 11/09/13 Mometasone Furoate [Nasonex] 2 spray NASAL DAILY PRN PRN 11/09/13 Multivit-Min/FA/Lycopene/Lut [Centrum Silver Tablet] 1 each PO DAILY 11/09/13 Nitroglycerin [Nitrostat] 0.4 mg SUBLINGUAL Q5M PRN 11/09/13 Potassium Chloride [K-Dur] 20 meq PO BID 11/09/13 Tizanidine HCl [Zanaflex] 4 mg PO QHS 11/09/13 Vitamin B Complex 1 each PO DAILY 11/09/13 Benazepril HCl [Lotensin] 10 mg PO DAILY 10/27/14 Glucosamine Sulf/Chondroitin A [Glucosamine-Chondroitin Cap] 1 each PO BID 10/27/14 Ranitidine [Zantac] 150 mg PO BID 06/27/17 Bisacodyl [Dulcolax] 10 mg RECTAL DAILY #30 suppos. 07/02/17 Insulin Detemir [Levemir FlexPen] 10 units SC QHS #1 insuln.pen 07/02/17 Sertraline HCl [Zoloft] 50 mg PO DAILY #30 tab 07/02/17 Following Prescrptions Were Given to Patient: Bisacodyl [Dulcolax] 10 mg RECTAL DAILY #30 suppos. Insulin Detemir [Levemir FlexPen] 10 units SC QHS #1 insuln.pen Sertraline HCl [Zoloft] 50 mg PO DAILY #30 tab Primary Care Physician: Caitlyn Allison MD [Primary Care Provider] - Please follow up with your Primary Care Physician in: within 2 weeks of discharge Disposition: Snf facility Minutes spent on discharge:: 25 Patient Condition:: Stable Meaningful Use Info Meaningful Use Diagnoses (Choose all that apply): None applicable Code Visit Inpatient E&M: 17982 Disch Hosp
[2017-07-03] MEDS: Heparin Injection 5,000 UNITS/ML Syringe 5000 UNITS SC (10:36)
[2017-07-03] MEDS: Sertraline 50 MG Tablet PO (10:36)
--- NOTE | 2017-07-03 10:55 | CASEMGMT ---
Social Work Convalescent 7000 completed and submitted in the [facility]. Copies on chart and SNF packet. Transfer summary, medlist and scripts faxed to SNF. Copies on chart and originals in SNF packet. Transportation setup through [facility] via [facility]lette at 14:00. Notified SNF, RN and pt. Plan: W for rehabilitation. Convalescent 7000 submitted in the [facility]. Transport setup through [facility] via [facility]lette at 14:00. Anushka Messina, [employer] OIL DEVELOPER
[2017-07-03 11:16] LABS: Bedside Glucose 180 mg/dL (70-110)
--- NOTE | 2017-07-03 12:45 | NURSING ---
report called to Bertha the receiving nurse at [facility].
[2017-07-04 13:19] LABS: Pathologist Review Reviewed
== END 2017-07-03 15:07 | disposition skilled nursing facility (03) | DRG 439 ==
LOC: ED 07:30 → MS3 07:45
PROVIDERS: Internal Medicine; Admitting Provider Internal Medicine; Emergency Provider Emergency Medicine; Family Provider Internal Medicine; PCP Internal Medicine; Visit Provider Internal Medicine
DX: K85.90 Acute pancreatitis without necrosis or infection, unspecified (principal); J96.10 Chronic respiratory failure, unspecified whether with hypoxia or hypercapnia; E11.40 Type 2 diabetes mellitus with diabetic neuropathy, unspecified; E11.65 Type 2 diabetes mellitus with hyperglycemia; J98.11 Atelectasis; E86.0 Dehydration; Z87.891 Personal history of nicotine dependence; G47.33 Obstructive sleep apnea (adult) (pediatric); I25.10 Atherosclerotic heart disease of native coronary artery without angina pectoris; E78.5 Hyperlipidemia, unspecified; K21.9 Gastro-esophageal reflux disease without esophagitis; I10 Essential (primary) hypertension; E66.9 Obesity, unspecified; Z68.39 Body mass index [BMI] 39.0-39.9, adult; J84.10 Pulmonary fibrosis, unspecified; K59.00 Constipation, unspecified; F32.9 Major depressive disorder, single episode, unspecified; Z79.4 Long term (current) use of insulin
CPT/HCPCS: 36415; 70450; 71045; 74018; 74176; 76705; 80048; 80053; 80061; 80076; 82962; 83036; 83605; 83690; 85025; 93005; 94002; 94003; 94640; 94660; 97162; 97166; 97535; 99284; J7030; A4216; J2405; J7799

== ENCOUNTER 2018-05-08 12:49 | Inpatient (IN) | payer MEDICARE, SELFPAY ==
[2018-05-08] VITALS (7 sets, daily range): BP systolic 135–151; BP diastolic 73–79; PULSE 18–106; RESP 18–27; TEMP 36.8–37.4; O2SAT 94–96; BMI 26.9; BMI 27.0; BMI 36.5
--- NOTE | 2018-05-08 13:05 | ED.VISSUMM ---
- ER Visit Summary Date of Service: 05/08/18 Chief Complaint: Cough and shortness of breath History of Present Illness: The patient is a [address] Pantoja and Dr. Pressley. He has a history of pulmonary fibrosis and chronic respiratory failure and is on 4 L of home O2. He reports that he has a cough began approximately 1 week ago. Is productive of bobby/nunez sputum without blood. He has had subjective fever, chills, and cold sweats. Reports he has had a constant chest pressure/tightness for the past week. Zeta 10 at worst. Reports that after having his oxygen increased. He is pain-free. On review of systems patient complains of nausea, but no abdominal pain or vomiting. He had diarrhea 3-4 times a day for the past week. No blood in his stools or black tarry stools. He does complain of generalized weakness. Physical Examination: Vitals: 98.6, 149/79, 81, 27, 95% on 4 L nasal cannula which is his home O2.. General: Well-nourished and well-developed. Head: Normocephalic atraumatic. Neck: Supple, no lymphadenopathy. No JVD. Nontender. Cardiovascular: Regular rate and rhythm. 2 out of 6 systolic murmur. Respiratory: No respiratory distress. Fine crackles throughout bilaterally. Abdominal: Soft, nontender, nondistended, normal bowel sounds. No guarding, rebound, or peritoneal signs. Back: Nontender. Extremities: Nontender, no edema. Skin: Normal color, no rash. Neurologic: Alert and oriented ?3. Cranial nerves II through XII are intact. Normal strength and sensation. Psych: Normal affect. Test Results: Chest x-ray is read by the radiologist as CHF. However, in my opinion this is his underlying pulmonary fibrosis and is asymmetric and consistent with a left lower lobe infiltrate. EKG is sinus tachycardia 104 and unchanged from June. Troponin is negative. Lactic acid is 2.2. Chem-7 is more for sodium 135 and glucose 205. CBC is more for an H&H 12.2 and 36.3, segmented neutrophils 76, lymphs lites of 8, monocytes of 13. Influenza was negative. Emergency Department Course and Treatment: Patient was resting comfortably on his oxygen. He was given Levaquin IV. Treatment Plan: Patient was discussed with Dr. Diop. He will be admitted to the hospital for further evaluation and treatment. Disposition: Admitted in improved condition. Impression: 1. Pulmonary fibrosis. 2. Pneumonia, community-acquired. This note was generated with [employer] dictation software. It may contain incorrect words, spelling, and punctuation that were not noted in review of the chart prior to signing ED Disposition - Plan for ED Patient: Chief Complaint: Shortness of Breath Referrals: Caitlyn Allison MD [STAFF PHYSICIAN] -
--- NOTE | 2018-05-08 13:22 | RAD_ITS ---
STUDY: X-RAY CHEST REASON FOR EXAM: Male, 78 years old. Cough. TECHNIQUE: AP and lateral views of the chest. COMPARISON: Comparison is made with prior examination dated July 01, 2017. FINDINGS: EKG electrode are seen. There is evidence of vascular congestion and CHF. There is no demonstrated pleural abnormality. There is severe cardiac enlargement. Normal mediastinum and torrey. Normal visualized pulmonary arteries. There is atherosclerotic calcification of the aortic arch with tortuosity. There are diffuse degenerative changes of the visualized thoracic spine. Mild loss of height of mid dorsal vertebrae. Normal visualized ribs, clavicles, and shoulders. There is no demonstrated abnormality of the visualized soft tissue structures of the upper abdomen. RAD/Chest PA and Lateral IMPRESSION: Cardiomegaly and CHF. Electronically Signed: Saad Berry MD at 14:48 EST Tel [phone], Service support ,
--- NOTE | 2018-05-08 13:22 | EKG12_ITS ---
Test Reason : SOB Blood Pressure : / mmHG Vent. Rate : 104 BPM Atrial Rate : 104 BPM P-R Int : 174 ms QRS Dur : 072 ms QT Int : 340 ms P-R-T Axes : 010 017 004 degrees QTc Int : 447 ms Sinus tachycardia Possible Inferior infarct , age undetermined Anterior infarct , age undetermined Abnormal ECG Confirmed by LUDIN ZAVALA ([id number]), newspaper or periodical editor AMALIA RUIZ ([id number]) on 05/11/2018 2:07:01 PM Referred By: ISIDORO Confirmed By:LUDIN ZAVALA
[2018-05-08 14:25] LABS: Absolute Lymphocyte Count 0.74 X10^3/ul (0.83-4.51); Absolute Neutrophil Count 7.1 X10^3/uL (2.0-7.7); Basophil# 0.02 X10^3/uL; Basophil% 0.2 % (0-1); Eosinophil# 0.26 X10^3/uL; Eosinophils% 2.8 % (0-5); Hematocrit 36.3 % (40-54); Hemoglobin 12.2 g/dl (13.0-16.5); Lymphocyte # 0.74 X10^3/ul (4.0); Lymphocyte % 7.9 % (19-41); Mean Corp Hgb Conc 33.6 g/gl (32-36); Mean Corpuscular Hgb 30.5 pg (27.0-32.0); Mean Corpuscular Volume 90.8 fL (80-94); Mean Platelet Vol. 10.3 fl (6.2-12.0); Monocyte# 1.23 X10^3/uL; Monocyte% 13.1 % (0-10); Neutrophil # 7.14 X10^3/uL (2.7-7.7); Neutrophil % 75.9 % (47-70); Platelet Count 138 K/mm3 (150-450); RBC Distribution Width CV 14.4 % (11.6-14.6); RBC Distribution Width SD 47.4 fl (35.1-43.9); White Blood Count 9.4 K/mm3 (4.4-11.0)
[2018-05-08 14:28] LABS: POSITIVE COUNT NO; POSITIVE DIFFERENTIAL NO; POSITIVE MORPHOLOGY NO
[2018-05-08 14:35] LABS: Anion Gap 8 (5-15); BUN 16 mg/dL (7-18); BUN/Creat Ratio 17.2 RATIO (10-20); Calcium,Total 8.9 mg/dL (8.5-10.1); Chloride 98 mmol/L (98-107); Creatinine, Serum 0.93 mg/dL (0.70-1.30); EST Glomerular Filtration Rate 83 mL/min (>60); Est Glom Filt Rate - Afr Amer 101 mL/min (>60); Estimated Creatinine Clearance 62.31 ml/min; Glucose 205 mg/dL (74-106); Potassium 4.3 mmol/L (3.5-5.1); Sodium Level 135 mmol/L (136-145)
--- NOTE | 2018-05-08 14:47 | ED.RN ---
lactic acid 2.[address] lab[address] dr mckeon aware
[2018-05-08 14:48] LABS: Lactic Acid 2.2 mmol/L (0.4-2.0)
[2018-05-08] MEDS: levoFLOXacin IV 750 MG/150 ML BAG 100 MG IV (15:57)
--- NOTE | 2018-05-08 16:03 | PCM.HP.STD ---
Problem List (1) Obstructive sleep apnea of adult Status: Chronic (2) Pulmonary fibrosis Status: Chronic (3) Chronic respiratory failure Status: Chronic (4) Diabetic neuropathy Status: Chronic (5) Hypertension Status: Chronic (6) Gastro-esophageal reflux Status: Chronic (7) Hyperlipidemia Status: Chronic (8) Type 2 diabetes mellitus Status: Chronic (9) Acute pancreatitis Status: Resolved (10) Hypogonadism male Status: Chronic (11) Coronary artery arteriosclerosis Status: Chronic History of Present Illness Date of Admission: 05/08/18 Chief Complaint: Shortness of breath, cough. The patient is a 78 year old M who presents emergency room due to shortness of breath, productive cough with nunez sputum. Patient reports intermittent fever, chills. Associated general malaise. Patient has chronic hypoxic respiratory failure due to pulmonary fibrosis and wears 4 L nasal cannula continuously at baseline. He notes his oxygen saturation at rest was in the 70s today on baseline home oxygen. Patient states symptoms have been ongoing for approximately 1 week. Patient follows with Dr. 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 Pressley. Patient has a past medical history of chronic hypoxic respiratory failure, pulmonary fibrosis, obstructive sleep apnea, hypertension, hyperlipidemia, type 2 diabetes mellitus, CAD, obesity, depression. Past Medical History Past Medical History (Chronic Problems): Chronic Problems Obstructive sleep apnea of adult (Chronic) Pulmonary fibrosis (Chronic) Chronic respiratory failure (Chronic) Diabetic neuropathy (Chronic) Hypertension (Chronic) Gastro-esophageal reflux (Chronic) Hyperlipidemia (Chronic) Type 2 diabetes mellitus (Chronic) Hypogonadism male (Chronic) Coronary artery arteriosclerosis (Chronic) Allergies No Known Allergies Allergy (Verified 06/27/17 00:39) Home Medications: Ambulatory Orders Medication Instructions Recorded Alfuzosin HCl [Uroxatral] 10 mg PO QHS 11/09/13 Ascorbate Calcium [Vitamin C] 500 mg PO DAILY 11/09/13 Atorvastatin Calcium [Lipitor] 10 mg PO QHS 11/09/13 Flaxseed Oil/[place] 3,6,9 [Sv 1 each PO DAILY 11/09/13 Flaxseed Oil 1,300 mg Sftgl] Lactobacillus Acidophilus 1 each PO DAILY 11/09/13 [Acidophilus] Magnesium Oxide 500 mg PO DAILY 11/09/13 Mometasone Furoate [Nasonex] 2 spray NASAL DAILY PRN PRN 11/09/13 Multivit-Min/FA/Lycopene/Lut 1 each PO DAILY 11/09/13 [Centrum Silver Tablet] Nitroglycerin [Nitrostat] 0.4 mg SUBLINGUAL Q5M PRN 11/09/13 Potassium Chloride [K-Dur] 20 meq PO BID 11/09/13 Tizanidine HCl [Zanaflex] 2 - 4 mg PO QHS 11/09/13 Vitamin B Complex 1 each PO DAILY 11/09/13 Glucosamine Sulf/Chondroitin A 1 each PO BID 10/27/14 [Glucosamine-Chondroitin Cap] Ranitidine [Zantac] 150 mg PO BID 06/27/17 Insulin Detemir [Levemir FlexPen] 10 units SC QHS #1 insuln.pen 07/02/17 Sertraline HCl [Zoloft] 50 mg PO DAILY #30 tab 07/02/17 Aspirin E.C. [Ecotrin] 81 mg PO DAILY@0800 05/08/18 Azathioprine 100 mg PO DAILY 05/08/18 Benazepril HCl [Lotensin] 10 mg PO DAILY 05/08/18 Gabapentin [Neurontin] 600 mg PO TID 05/08/18 Surgical History: herniorrhaphy, - - Bilateral eyelid surgery Psychiatric History: Depression Lives: Spouse/ Significant Other Smoking Status: Former smoker Alcohol: None Drugs: None - *Family History Maternal History Items: Heart Disease Paternal History Items: - - Bone and prostate cancer. Review of Systems Constitutional: Reports: Chills, Fever, Malaise HEENT: Denies: Head Aches, Sinus Congestion, Sinus Drainage, Sore Throat Cardiovascular: Denies: Chest Pain, Edema, Light Headedness, Palpitations, Syncope Respiratory: Reports: Cough, Shortness of Breath, Sputum production Gastrointestinal: Denies: Abdominal Pain, Nausea, Vomiting Genitourinary: Denies: Dysuria Musculoskeletal: Denies: Joint Pain, Joint Tenderness Skin: Denies: Rash, Wounds Neurological: Denies: Numbness, Tingling, Focal weakness Psychiatric: Reports: Depression. Denies: Anxiety, Homicidal Ideations, Suicidal Ideations Hematologic/ Lymphatic: Denies: Easy Bruising, Easy Bleeding VTE Information - Inpt Only VTE Present on Admission: No VTE Mechan Device Prophylaxis: None VTE Pharm Prophylaxis ordered?: Yes - Physical Exam General: Alert, Oriented x3, Cooperative HEENT: Atraumatic, PERRLA, EOMI, Normocephalic Neck: Supple, No JVD, Negative Carotid Bruits Lungs: Diminished, - - Course crackles bilateral bases Cardiovascular: Regular rate, Regular Rhythm, Normal S1, Normal S2, Murmur Abdomen: Bowel Sounds Present, Soft, Non Tender, Non-Distended, Obese Extremities: No clubbing, No cyanosis, No edema, Capillary Refill Less than 3 Seconds Skin: No rashes, No breakdown Musculoskeletal: No Tenderness to Palpation of Joints or Extremities Neurological: Cranial nerves II-XII grossly intact, Neuro grossly intact Psych/Mental Status: Normal Affect, Appropriate Vital Signs Temp Pulse Resp BP Pulse Ox 98.6 F 94 20 H 135/75 H 94 05/08/18 12:54 05/08/18 15:13 05/08/18 15:13 05/08/18 15:13 05/08/18 15:13 Oxygen Flow Rate (L/min) 5 Oxygen Delivery Method Room Air Weight: 177 lb 4.026 oz Body Mass Index (BMI) 26.9 Microbiology Past 72 Hours 05/08/18 15:21 Influenza Types A,B Direct FA (TANJA) - Final Mucosa - Nose Laboratory Tests Past 24 Hrs 05/08/18 05/08/18 05/08/18 14:05 14:05 14:05 WBC 9.4 RBC 4.00 L Hgb 12.2 L Hct 36.3 L MCV 90.8 MCH 30.5 MCHC 33.6 RDW 14.4 RDW Differential 47.4 H Plt Count 138 L MPV 10.3 Immature Gran % (Auto) 0.100 Neut % (Auto) 75.9 H Lymph % (Auto) 7.9 L Tama % (Auto) 13.1 H Eos % (Auto) 2.8 Baso % (Auto) 0.2 Absolute Neuts (auto) 7.1 Absolute Lymphs (auto) 0.74 L Total Counted Not Reportable Sodium 135 L Potassium 4.3 Chloride 98 Carbon Dioxide 29.0 Anion Gap 8 BUN 16 Creatinine 0.93 Estim Creat Clear Calc 62.31 Est GFR (MDRD) Af Amer 101 Est GFR (MDRD) Non-Af 83 BUN/Creatinine Ratio 17.2 Glucose 205 H Lactic Acid 2.2 H Calcium 8.9 Troponin I < 0.015 Assessment/Plan All Active Problems Acute pancreatitis (Resolved) 1. Acute on chronic hypoxic respiratory failure secondary to community-acquired left lower lobe pneumonia complicated by pulmonary fibrosis- Lactic acid 2.2. Afebrile. No leukocytosis. Does not meet sepsis criteria. Chest x-ray on admission showed cardiomegaly and CHF however feel this is due to underlying pulmonary fibrosis. Negative for influenza. Obtain respiratory panel. Blood cultures drawn in ER, pending. Obtain sputum culture. Check urine for strep and Legionella. Albuterol and DuoNeb aerosols. Continue supplement oxygen to maintain O2 at or above 90%. IV Rocephin and Azithromycin. IS. Mucinex 1200mg BID. PT/OT. 2. Obstructive sleep apnea-continue CPAP nightly with supplemental oxygen. 3. Hypertension-stable, continue home benazepril regimen. 4. Hyperlipidemia-continue statin. 5. Type 2 diabetes mellitus with diabetic [id number]-[id number] before meals at bedtime. Continue home Levemir and Humalog regimen. Continue home gabapentin regimen. 6. CAD-continue aspirin, statin. Troponin negative x1 in ER. Patient denies chest pain. 7. Obesity- Encourage diet and lifestyle modifications. Nutrition consult. 8. Depression-continue home Zoloft regimen. 9. Chronic normocytic anemia-stable. DVT prophylaxis-Lovenox sc. This patient was seen by PB Shaffer under the supervision of Dr. Diop.
--- NOTE | 2018-05-08 16:11 | HP.PCM_ITS ---
Problem List (1) Obstructive sleep apnea of adult Status: Chronic (2) Pulmonary fibrosis Status: Chronic (3) Chronic respiratory failure Status: Chronic (4) Diabetic neuropathy Status: Chronic (5) Hypertension Status: Chronic (6) Gastro-esophageal reflux Status: Chronic (7) Hyperlipidemia Status: Chronic (8) Type 2 diabetes mellitus Status: Chronic (9) Acute pancreatitis Status: Resolved (10) Hypogonadism male Status: Chronic (11) Coronary artery arteriosclerosis Status: Chronic History of Present Illness Date of Admission: 05/08/18 Chief Complaint: Shortness of breath, cough. The patient is a 78 year old M who presents emergency room due to shortness of breath, productive cough with nunez sputum. Patient reports intermittent fever, chills. Associated general malaise. Patient has chronic hypoxic respiratory failure due to pulmonary fibrosis and wears 4 L nasal cannula continuously at baseline. He notes his oxygen saturation at rest was in the 70s today on baseline home oxygen. Patient states symptoms have been ongoing for judy roximately 1 week. Patient follows with Dr. 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 Pressley. Patient has a past medical history of chronic hypoxic respiratory failure, pulmonary fibrosis, obstructive sleep apnea, hypertension, hyperlipidemia, type 2 diabetes mellitus, CAD, obesity, depression. Past Medical History Past Medical History (Chronic Problems): Chronic Problems Obstructive sleep apnea of adult (Chronic) Pulmonary fibrosis (Chronic) Chronic respiratory failure (Chronic) Diabetic neuropathy (Chronic) Hypertension (Chronic) Gastro-esophageal reflux (Chronic) Hyperlipidemia (Chronic) Type 2 diabetes mellitus (Chronic) Hypogonadism male (Chronic) Coronary artery arteriosclerosis (Chronic) Allergies No Known Allergies Allergy (Verified 06/27/17 00:39) Home Medications: Ambulatory Orders Medication Instructions Recorded Alfuzosin HCl [Uroxatral] 10 mg PO QHS 11/09/13 Ascorbate Calcium [Vitamin C] 500 mg PO DAILY 11/09/13 Atorvastatin Calcium [Lipitor] 10 mg PO QHS 11/09/13 Flaxseed Oil/[place] 3,6,9 [Sv 1 each PO DAILY 11/09/13 Flaxseed Oil 1,300 mg Sftgl] Lactobacillus Acidophilus 1 each PO DAILY 11/09/13 [Acidophilus] Magnesium Oxide 500 mg PO DAILY 11/09/13 Mometasone Furoate [Nasonex] 2 spray NASAL DAILY PRN PRN 11/09/13 Multivit-Min/FA/Lycopene/Lut 1 each PO DAILY 11/09/13 [Centrum Silver Tablet] Nitroglycerin [Nitrostat] 0.4 mg SUBLINGUAL Q5M PRN 11/09/13 Potassium Chloride [K-Dur] 20 meq PO BID 11/09/13 Tizanidine HCl [Zanaflex] 2 - 4 mg PO QHS 11/09/13 Vitamin B Complex 1 each PO DAILY 11/09/13 Glucosamine Sulf/Chondroitin A 1 each PO BID 10/27/14 [Glucosamine-Chondroitin Cap] Ranitidine [Zantac] 150 mg PO BID 06/27/17 Insulin Detemir [Levemir FlexPen] 10 units SC QHS #1 insuln.pen 07/02/17 Sertraline HCl [Zoloft] 50 mg PO DAILY #30 tab 07/02/17 Aspirin E.C. [Ecotrin] 81 mg PO DAILY@0800 05/08/18 Azathioprine 100 mg PO DAILY 05/08/18 Benazepril HCl [Lotensin] 10 mg PO DAILY 05/08/18 Gabapentin [Neurontin] 600 mg PO TID 05/08/18 Surgical History: herniorrhaphy, - - Bilateral eyelid surgery Psychiatric History: Depression Lives: Spouse/ Significant Other Smoking Status: Former smoker Alcohol: None Drugs: None - *Family History Maternal History Items: Heart Disease Paternal History Items: - - Bone and prostate cancer. Review of Systems Constitutional: Reports: Chills, Fever, Malaise HEENT: Denies: Head Aches, Sinus Congestion, Sinus Drainage, Sore Throat Cardiovascular: Denies: Chest Pain, Edema, Light Headedness, Palpitations, Syncope Respiratory: Reports: Cough, Shortness of Breath, Sputum production Gastrointestinal: Denies: Abdominal Pain, Nausea, Vomiting Genitourinary: Denies: Dysuria Musculoskeletal: Denies: Joint Pain, Joint Tenderness Skin: Denies: Rash, Wounds Neurological: Denies: Numbness, Tingling, Focal weakness Psychiatric: Reports: Depression. Denies: Anxiety, Homicidal Ideations, Suicidal Ideations Hematologic/ Lymphatic: Denies: Easy Bruising, Easy Bleeding VTE Information - Inpt Only VTE Present on Admission: No VTE Mechan Device Prophylaxis: None VTE Pharm Prophylaxis ordered?: Yes - Physical Exam General: Alert, Oriented x3, Cooperative HEENT: Atraumatic, PERRLA, EOMI, Normocephalic Neck: Supple, No JVD, Negative Carotid Bruits Lungs: Diminished, - - Course crackles bilateral bases Cardiovascular: Regular rate, Regular Rhythm, Normal S1, Normal S2, Murmur Abdomen: Bowel Sounds Present, Soft, Non Tender, Non-Distended, Obese Extremities: No clubbing, No cyanosis, No edema, Capillary Refill Less than 3 Seconds Skin: No rashes, No breakdown Musculoskeletal: No Tenderness to Palpation of Joints or Extremities Neurological: Cranial nerves II-XII grossly intact, Neuro grossly intact Psych/Mental Status: Normal Affect, Appropriate Vital Signs Temp Pulse Resp BP Pulse Ox 98.6 F 94 20 H 135/75 H 94 05/08/18 12:54 05/08/18 15:13 05/08/18 15:13 05/08/18 15:13 05/08/18 15:13 Oxygen Flow Rate (L/min) 5 Oxygen Delivery Method Room Air Weight: 177 lb 4.026 oz Body Mass Index (BMI) 26.9 Microbiology Past 72 Hours 05/08/18 15:21 Influenza Types A,B Direct FA (TANJA) - Final Mucosa - Nose Laboratory Tests Past 24 Hrs 05/08/18 05/08/18 05/08/18 14:05 14:05 14:05 WBC 9.4 RBC 4.00 L Hgb 12.2 L Hct 36.3 L MCV 90.8 MCH 30.5 MCHC 33.6 RDW 14.4 RDW Differential 47.4 H Plt Count 138 L MPV 10.3 Immature Gran % (Auto) 0.100 Neut % (Auto) 75.9 H Lymph % (Auto) 7.9 L [place] % (Auto) 13.1 H Eos % (Auto) 2.8 Baso % (Auto) 0.2 Absolute Neuts (auto) 7.1 Absolute Lymphs (auto) 0.74 L Total Counted Not Reportable Sodium 135 L Potassium 4.3 Chloride 98 Carbon Dioxide 29.0 Anion Gap 8 BUN 16 Creatinine 0.93 Estim Creat Clear Calc 62.31 Est GFR (MDRD) Af Amer 101 Est GFR (MDRD) Non-Af 83 BUN/Creatinine Ratio 17.2 Glucose 205 H Lactic Acid 2.2 H Calcium 8.9 Troponin I < 0.015 Assessment/Plan All Active Problems Acute pancreatitis (Resolved) 1. Acute on chronic hypoxic respiratory failure secondary to community-acquired left lower lobe pneumonia complicated by pulmonary fibrosis- Lactic acid 2.2. Afebrile. No leukocytosis. Does not meet sepsis criteria. Chest x-ray on admission showed cardiomegaly and CHF however feel this is due to underlying pulmonary fibrosis. Negative for influenza. Obtain respiratory panel. Blood cultures drawn in ER, pending. Obtain sputum culture. Check urine for strep and Legionella. Albuterol and DuoNeb aerosols. Continue supplement oxygen to maintain O2 at or above 90%. IV Rocephin and Azithromycin. IS. Mucinex 1200mg BID. PT/OT. 2. Obstructive sleep apnea-continue CPAP nightly with supplemental oxygen. 3. Hypertension-stable, continue home benazepril regimen. 4. Hyperlipidemia-continue statin. 5. Type 2 diabetes mellitus with diabetic ittfwabwus-[id number]-[id number] before meals at bedtime. Continue home Levemir and Humalog regimen. Continue home gabapentin regimen. 6. CAD-continue aspirin, statin. Troponin negative x1 in ER. Patient denies chest pain. 7. Obesity- Encourage diet and lifestyle modifications. Nutrition consult. 8. Depression-continue home Zoloft regimen. 9. Chronic normocytic anemia-stable. DVT prophylaxis-Lovenox sc. This patient was seen by PB Shaffer under the supervision of Dr. Diop.
[2018-05-08 18:03] LABS: Magnesium 1.9 mg/dL (1.6-2.6)
[2018-05-08 18:06] LABS: Bedside Glucose 162 mg/dL (70-110)
[2018-05-08 18:15] LABS: Reflex Lactate? Y
[2018-05-08] MEDS: Ceftriaxone 1 GM/50 ML BAG IV (18:47)
[2018-05-08] MEDS: Insulin Lispro 100 UNIT/ML INSULN.PEN SC ×2 (18:47→22:12)
[2018-05-08] MEDS: Ipratropium/Albuterol Sulfate 3 ML AMPUL.NEB INHALATION (19:33)
[2018-05-08 19:58] LABS: Lactic Acid 1.8 mmol/L (0.4-2.0)
[2018-05-08] MEDS: Acetaminophen 325 MG Tablet 650 MG PO (22:00)
[2018-05-08] MEDS: 0.9% NaCl Peripheral Flush Adult/Peds IV (22:00)
[2018-05-08] MEDS: Mag Hydrox/Al Hydrox/Simeth 30 ML UDC PO (22:00)
[2018-05-08] MEDS: Ondansetron 4 MG/2 ML Vial IV (22:00)
[2018-05-08] MEDS: Famotidine 20 MG Tablet PO (22:01)
[2018-05-08] MEDS: Atorvastatin Calcium 10 MG Tablet PO (22:04)
[2018-05-08] MEDS: guaiFENesin 1,200 MG Tablet 1200 MG PO (22:04)
[2018-05-08] MEDS: tiZANidine HCl 2 MG Tablet 4 MG PO (22:04)
[2018-05-08] MEDS: Tamsulosin HCl 0.4 MG Capsule PO (22:04)
[2018-05-08] MEDS: Fluticasone 0.05% 1 SPRAY NASAL.SRY 2 SPRAY NASAL (22:05)
[2018-05-08] MEDS: Gabapentin 600 MG Tablet PO (22:17)
[2018-05-08 22:25] LABS: Bedside Glucose 227 mg/dL (70-110)
[2018-05-09] VITALS (17 sets, daily range): BP systolic 119–153; BP diastolic 49–85; PULSE 58–115; RESP 18–28; TEMP 36.6–37.6; O2SAT 87–100
[2018-05-09] MEDS: Ipratropium/Albuterol Sulfate 3 ML AMPUL.NEB INHALATION ×4 (01:05→19:11)
[2018-05-09] MEDS: Gabapentin 600 MG Tablet PO ×3 (06:09→21:50)
[2018-05-09] MEDS: Acetaminophen 325 MG Tablet 650 MG PO ×2 (07:29→17:20)
[2018-05-09] MEDS: Insulin Lispro 100 UNIT/ML INSULN.PEN SC ×4 (07:30→21:46)
[2018-05-09 07:35] LABS: Bedside Glucose 166 mg/dL (70-110)
[2018-05-09 08:43] LABS: Absolute Neutrophil Count 5.1 X10^3/uL (2.0-7.7); Basophil# 0.02 X10^3/uL; Basophil% 0.3 % (0-1); Eosinophil# 0.29 X10^3/uL; Eosinophils% 3.8 % (0-5); Hematocrit 35.3 % (40-54); Hemoglobin 11.6 g/dl (13.0-16.5); Lymphocyte % 15.6 % (19-41); Mean Corp Hgb Conc 32.9 g/gl (32-36); Mean Corpuscular Volume 91.2 fL (80-94); Mean Platelet Vol. 10.3 fl (6.2-12.0); Monocyte# 1.09 X10^3/uL; Monocyte% 14.2 % (0-10); Neutrophil # 5.09 X10^3/uL (2.7-7.7); Platelet Count 125 K/mm3 (150-450); RBC Distribution Width CV 14.5 % (11.6-14.6); RBC Distribution Width SD 47.7 fl (35.1-43.9); Red Blood Count 3.87 M/mm3 (4.6-6.2); White Blood Count 7.7 K/mm3 (4.4-11.0)
[2018-05-09 08:45] LABS: Anion Gap 11 (5-15); BUN 15 mg/dL (7-18); BUN/Creat Ratio 17.4 RATIO (10-20); Calcium,Total 8.7 mg/dL (8.5-10.1); Chloride 98 mmol/L (98-107); Creatinine, Serum 0.86 mg/dL (0.70-1.30); EST Glomerular Filtration Rate 91 mL/min (>60); Est Glom Filt Rate - Afr Amer 110 mL/min (>60); Estimated Creatinine Clearance 67.38 ml/min; Glucose 179 mg/dL (74-106); Potassium 3.9 mmol/L (3.5-5.1); Sodium Level 138 mmol/L (136-145)
[2018-05-09 08:47] LABS: POSITIVE COUNT NO; POSITIVE DIFFERENTIAL NO; POSITIVE MORPHOLOGY NO
[2018-05-09] MEDS: Sertraline 50 MG Tablet PO (09:23)
[2018-05-09] MEDS: Enoxaparin 40 MG/0.4 ML Syringe SC (09:24)
[2018-05-09] MEDS: guaiFENesin 1,200 MG Tablet 1200 MG PO ×2 (09:25→21:50)
[2018-05-09] MEDS: Lisinopril 10 MG Tablet PO (09:25)
[2018-05-09] MEDS: Famotidine 20 MG Tablet PO ×2 (09:25→21:50)
[2018-05-09] MEDS: Aspirin 81 MG TAB.CHEW PO (09:26)
[2018-05-09] MEDS: Multivitamins,Ther W-Minerals Tablet 1 TABLET PO (09:27)
[2018-05-09] MEDS: Ascorbic Acid 500 MG Tablet PO (09:27)
[2018-05-09] MEDS: Magnesium Oxide 400 MG Tablet PO (09:28)
[2018-05-09] MEDS: 0.9% NaCl Peripheral Flush Adult/Peds IV ×3 (09:39→22:33)
--- NOTE | 2018-05-09 10:53 | PCM.PN.HOSP ---
Patient Problems: Active and Suspected Problems Pneumonia due to Streptococcus pneumoniae (Acute) Subjective: Still with chills. Coughing up some dark brown phlegm. Vitals/I&O's: Vital Signs Temp Pulse Resp BP Pulse Ox 36.8 C 86 20 H 150/75 H 91 05/09/18 09:05 05/09/18 09:05 05/09/18 09:05 05/09/18 09:05 05/09/18 09:05 Oxygen Flow Rate (L/min) 4 Oxygen Delivery Method Nasal Cannula Weight: 108.908 kg Body Mass Index (BMI) 36.5 Intake and Output for Last 24 Hours 05/07/18 05/08/18 05/09/18 23:59 23:59 23:59 Intake Total 760 / 760 Balance 760 / 760 General: Alert, No apparent distress HEENT: Atraumatic, Normocephalic Oral: Moist Mucosa Neck: No Nodes, Thyroid Normal Size and Texture Lungs: Diminished, - - bibasilar fine crackles. Cardiovascular: Regular rate, Regular Rhythm, Normal S1, Normal S2, No murmurs Abdomen: Bowel Sounds Present, Soft, Non Tender, Non-Distended, No Hepato-splenomegaly Extremities: No edema, No Calf Tenderness Skin: No rashes, No breakdown Psych/Mental Status: Normal Affect, Appropriate Microbiology Past 72 Hours 05/08/18 22:50 Urine, Clean Catch Legionella Antigen - Final 05/08/18 22:50 Urine, Clean Catch Streptococcus pneumoniae Antigen (M - Final 05/08/18 15:21 Mucosa - Nose Influenza Types A,B Direct FA (TANJA) - Final Laboratory Results 05/08/18 14:05: WBC 9.4, RBC 4.00 L, Hgb 12.2 L, Hct 36.3 L, MCV 90.8, MCH 30.5, MCHC 33.6, RDW 14.4, RDW Differential 47.4 H, Plt Count 138 L, MPV 10.3, Immature Gran % (Auto) 0.100, Neut % (Auto) 75.9 H, Lymph % (Auto) 7.9 L, [place] % (Auto) 13.1 H, Eos % (Auto) 2.8, Baso % (Auto) 0.2, Absolute Neuts (auto) 7.1, Absolute Lymphs (auto) 0.74 L, Total Counted Not Reportable 05/08/18 14:05: Sodium 135 L, Potassium 4.3, Chloride 98, Carbon Dioxide 29.0, Anion Gap 8, BUN 16, Creatinine 0.93, Estim Creat Clear Calc 62.31, Est GFR (MDRD) Af Amer 101, Est GFR (MDRD) Non-Af 83, BUN/Creatinine Ratio 17.2, Glucose 205 H, Calcium 8.9, Troponin I < 0.015 05/08/18 14:05: Lactic Acid 2.2 H 05/08/18 14:05: Magnesium 1.9 05/08/18 17:58: POC Glucose 162 H 05/08/18 18:41: Lactic Acid 1.8 05/08/18 22:09: POC Glucose 227 H 05/09/18 07:28: POC Glucose 166 H 05/09/18 07:43: WBC 7.7, RBC 3.87 L, Hgb 11.6 L, Hct 35.3 L, MCV 91.2, MCH 30.0, MCHC 32.9, RDW 14.5, RDW Differential 47.7 H, Plt Count 125 L, MPV 10.3, Immature Gran % (Auto) 0.100, Neut % (Auto) 66.0, Lymph % (Auto) 15.6 L, [place] % (Auto) 14.2 H, Eos % (Auto) 3.8, Baso % (Auto) 0.3, Absolute Neuts (auto) 5.1, Absolute Lymphs (auto) 1.20, Total Counted Not Reportable 05/09/18 07:43: Sodium 138, Potassium 3.9, Chloride 98, Carbon Dioxide 29.0, Anion Gap 11, BUN 15, Creatinine 0.86, Estim Creat Clear Calc 67.38, Est GFR (MDRD) Af Amer 110, Est GFR (MDRD) Non-Af 91, BUN/Creatinine Ratio 17.4, Glucose 179 H, Calcium 8.7 Current Medications Acetaminophen (Tylenol) 650 mg PO Q4H PRN PRN PRN Reason: FEVER Last Admin: 05/09/18 07:29 Dose: 650 mg Al Hydroxide/Mg Hydroxide (Mylanta Ii) 30 ml PO Q6H PRN PRN PRN Reason: Gastric burning Last Admin: 05/08/18 22:00 Dose: 30 ml Albuterol Sulfate (Ventolin Aerosols) 2.5 mg INHALATION Q2H PRN PRN PRN Reason: SHORTNESS OF BREATH Albuterol/Ipratropium (Duoneb) 3 ml INHALATION Q6H.RT [facility] Last Admin: 05/09/18 06:48 Dose: 3 ml Ascorbic Acid (Vitamin C) 500 mg PO DAILY@0800 [facility] Last Admin: 05/09/18 09:27 Dose: 500 mg Aspirin (Aspirin, Baby) 81 mg PO DAILY@0800 [facility] Last Admin: 05/09/18 09:26 Dose: 81 mg Atorvastatin Calcium (Lipitor) 10 mg PO QHS [facility] Last Admin: 05/08/18 22:04 Dose: 10 mg Bisacodyl (Dulcolax) 10 mg RECTAL DAILY [facility] Last Admin: 05/09/18 09:32 Dose: Not Given Enoxaparin Sodium (Lovenox) 40 mg SC DAILY@1000 [facility] Last Admin: 05/09/18 09:24 Dose: 40 mg Famotidine (Pepcid) 20 mg PO BID [facility] Last Admin: 05/09/18 09:25 Dose: 20 mg Fluticasone Propionate (Flonase Nasal [place]) 2 spray NASAL DAILY PRN PRN PRN Reason: CONGESTION Last Admin: 05/08/18 22:05 Dose: 2 spray Gabapentin (Neurontin) 600 mg PO TID [facility] Last Admin: 05/09/18 06:09 Dose: 600 mg Guaifenesin (Mucinex) 1,200 mg PO BID [facility] Last Admin: 05/09/18 09:25 Dose: 1,200 mg Sodium Chloride () 500 mls @ 999 mls/hr IV .Q31M ONE Last Admin: 05/08/18 14:37 Dose: 999 mls/hr Azithromycin 500 mg/ Dextrose 255 mls @ 250 mls/hr IV Q24 [facility] Stop: 05/11/18 11:02 Last Admin: 05/09/18 09:39 Dose: 250 mls/hr Ceftriaxone Sodium (Rocephin) 1 gm in 50 mls @ 100 mls/hr IV Q24H [facility] Last Admin: 05/08/18 18:47 Dose: 100 mls/hr Insulin Glargine (Lantus (Bkc)) 24 units SC QHS [facility] Last Admin: 05/08/18 22:13 Dose: 24 units Insulin Human Lispro (Humalog Kwikpen (Bkc)) 0 unit SC ACHS [facility]; Protocol Last Admin: 05/09/18 07:30 Dose: 1 u Lactobacillus Acidophilus (Acidophilus) 1 tablet PO DAILY [facility] Last Admin: 05/09/18 09:23 Dose: 1 tablet Lisinopril (Zestril) 10 mg PO DAILY [facility] Last Admin: 05/09/18 09:25 Dose: 10 mg Magnesium Hydroxide (Milk Of Magnesia) 30 ml PO DAILY PRN PRN PRN Reason: Constipation Magnesium Oxide (Mag-Ox 400) 400 mg PO DAILY [facility] Last Admin: 05/09/18 09:28 Dose: 400 mg Multivitamins/Minerals (Multivitamin With Minerals) 1 tablet PO DAILY@0800 [facility] Last Admin: 05/09/18 09:27 Dose: 1 tablet Ondansetron HCl (Zofran) 4 mg IV Q8H PRN PRN PRN Reason: NAUSEA Last Admin: 05/08/18 22:00 Dose: 4 mg Potassium [facility] ([facility]) [facility] Last Admin: 05/09/18 09:28 Dose: 20 meq Promethazine HCl (Phenergan) 12.5 mg IV Q6H PRN PRN PRN Reason: NAUSEA/VOMITING Sertraline HCl (Zoloft) 50 mg PO DAILY [facility] Last Admin: 05/09/18 09:23 Dose: 50 mg Sodium Chloride () 5 - 30 ml IV UD PRN PRN Reason: SALINE FLUSH Last Admin: 05/09/18 09:39 Dose: 10 ml Tamsulosin HCl (Flomax) 0.4 mg PO QHS [facility] Last Admin: 05/08/18 22:04 Dose: 0.4 mg Tizanidine HCl (Zanaflex) 4 mg PO QHS [facility] Last Admin: 05/08/18 22:04 Dose: 4 mg Medical Necessity - Tobacco Use Smoking Status: Former smoker Tobacco Use: Cigarettes Assessment/Plan All Active Problems Pneumonia due to Streptococcus pneumoniae (Acute) Acute pancreatitis (Resolved) 1. suspected pneumococcal pneumonia may be viral unable to determine if any new changes on CXR compared to June continue with CTX and azithromycin Patient has not had any hospitalization since June follow up SCx and resp panel Strep and legionella antigens are negative. 2. Pulmonary fibrosis complicates care azathioprine on hold no steroids at this time. 3. DVT proph: LMWH 4. DM2: uncontrolled continue Basal and SSI. Code Visit Inpatient E&M: 04468 Subs Hosp L2
--- NOTE | 2018-05-09 10:58 | PN_ITS ---
Patient Problems: Active and Suspected Problems Pneumonia due to Streptococcus pneumoniae (Acute) Subjective: Still with chills. Coughing up some dark brown phlegm. Vitals/I&O's: Vital Signs Temp Pulse Resp BP Pulse Ox 36.8 C 86 20 H 150/75 H 91 05/09/18 09:05 05/09/18 09:05 05/09/18 09:05 05/09/18 09:05 05/09/18 09:05 Oxygen Flow Rate (L/min) 4 Oxygen Delivery Method Nasal Cannula Weight: 108.908 kg Body Mass Index (BMI) 36.5 Intake and Output for Last 24 Hours 05/07/18 05/08/18 05/09/18 23:59 23:59 23:59 Intake Total 760 / 760 Balance 760 / 760 General: Alert, No apparent distress HEENT: Atraumatic, Normocephalic Oral: Moist Mucosa Neck: No Nodes, Thyroid Normal Size and Texture Lungs: Diminished, - - bibasilar fine crackles. Cardiovascular: Regular rate, Regular Rhythm, Normal S1, Normal S2, No murmurs Abdomen: Bowel Sounds Present, Soft, Non Tender, Non-Distended, No Hepato- splenomegaly Extremities: No edema, No Calf Tenderness Skin: No rashes, No breakdown Psych/Mental Status: Normal Affect, Appropriate Microbiology Past 72 Hours 05/08/18 22:50 Urine, Clean Catch Legionella Antigen - Final 05/08/18 22:50 Urine, Clean Catch Streptococcus pneumoniae Antigen (M - Final 05/08/18 15:21 Mucosa - Nose Influenza Types A,B Direct FA (TANJA) - Final Laboratory Results 05/08/18 14:05: WBC 9.4, RBC 4.00 L, Hgb 12.2 L, Hct 36.3 L, MCV 90.8, MCH 30.5, MCHC 33.6, RDW 14.4, RDW Differential 47.4 H, Plt Count 138 L, MPV 10.3, Immature Gran % (Auto) 0.100, Neut % (Auto) 75.9 H, Lymph % (Auto) 7.9 L, [place] % (Auto) 13.1 H, Eos % (Auto) 2.8, Baso % (Auto) 0.2, Absolute Neuts (auto) 7.1, Absolute Lymphs (auto) 0.74 L, Total Counted Not Reportable 05/08/18 14:05: Sodium 135 L, Potassium 4.3, Chloride 98, Carbon Dioxide 29.0, Anion Gap 8, BUN 16, Creatinine 0.93, Estim Creat Clear Calc 62.31, Est GFR (MDRD) Af Amer 101, Est GFR (MDRD) Non-Af 83, BUN/Creatinine Ratio 17.2, Glucose 205 H, Calcium 8.9, Troponin I < 0.015 05/08/18 14:05: Lactic Acid 2.2 H 05/08/18 14:05: Magnesium 1.9 05/08/18 17:58: POC Glucose 162 H 05/08/18 18:41: Lactic Acid 1.8 05/08/18 22:09: POC Glucose 227 H 05/09/18 07:28: POC Glucose 166 H 05/09/18 07:43: WBC 7.7, RBC 3.87 L, Hgb 11.6 L, Hct 35.3 L, MCV 91.2, MCH 30.0, MCHC 32.9, RDW 14.5, RDW Differential 47.7 H, Plt Count 125 L, MPV 10.3, Immature Gran % (Auto) 0.100, Neut % (Auto) 66.0, Lymph % (Auto) 15.6 L, [place] % (Auto) 14.2 H, Eos % (Auto) 3.8, Baso % (Auto) 0.3, Absolute Neuts (auto) 5.1, Absolute Lymphs (auto) 1.20, Total Counted Not Reportable 05/09/18 07:43: Sodium 138, Potassium 3.9, Chloride 98, Carbon Dioxide 29.0, An ion Gap 11, BUN 15, Creatinine 0.86, Estim Creat Clear Calc 67.38, Est GFR (MDRD) Af Amer 110, Est GFR (MDRD) Non-Af 91, BUN/Creatinine Ratio 17.4, Glucose 179 H, Calcium 8.7 Current Medications Acetaminophen (Tylenol) 650 mg PO Q4H PRN PRN PRN Reason: FEVER Last Admin: 05/09/18 07:29 Dose: 650 mg Al Hydroxide/Mg Hydroxide (Mylanta Ii) 30 ml PO Q6H PRN PRN PRN Reason: Gastric burning Last Admin: 05/08/18 22:00 Dose: 30 ml Albuterol Sulfate (Ventolin Aerosols) 2.5 mg INHALATION Q2H PRN PRN PRN Reason: SHORTNESS OF BREATH Albuterol/Ipratropium (Duoneb) 3 ml INHALATION Q6H.RT [facility] Last Admin: 05/09/18 06:48 Dose: 3 ml Ascorbic Acid (Vitamin C) 500 mg PO DAILY@0800 [facility] Last Admin: 05/09/18 09:27 Dose: 500 mg Aspirin (Aspirin, Baby) 81 mg PO DAILY@0800 [facility] Last Admin: 05/09/18 09:26 Dose: 81 mg Atorvastatin Calcium (Lipitor) 10 mg PO QHS [facility] Last Admin: 05/08/18 22:04 Dose: 10 mg Bisacodyl (Dulcolax) 10 mg RECTAL DAILY [facility] Last Admin: 05/09/18 09:32 Dose: Not Given Enoxaparin Sodium (Lovenox) 40 mg SC DAILY@1000 [facility] Last Admin: 05/09/18 09:24 Dose: 40 mg Famotidine (Pepcid) 20 mg PO BID [facility] Last Admin: 05/09/18 09:25 Dose: 20 mg Fluticasone Propionate (Flonase Nasal [place]) 2 spray NASAL DAILY PRN PRN PRN Reason: CONGESTION Last Admin: 05/08/18 22:05 Dose: 2 spray Gabapentin (Neurontin) 600 mg PO TID [facility] Last Admin: 05/09/18 06:09 Dose: 600 mg Guaifenesin (Mucinex) 1,200 mg PO BID [facility] Last Admin: 05/09/18 09:25 Dose: 1,200 mg Sodium Chloride () 500 mls @ 999 mls/hr IV .Q31M ONE Last Admin: 05/08/18 14:37 Dose: 999 mls/hr Azithromycin 500 mg/ Dextrose 255 mls @ 250 mls/hr IV Q24 [facility] Stop: 05/11/18 11:02 Last Admin: 05/09/18 09:39 Dose: 250 mls/hr Ceftriaxone Sodium (Rocephin) 1 gm in 50 mls @ 100 mls/hr IV Q24H [facility] Last Admin: 05/08/18 18:47 Dose: 100 mls/hr Insulin Glargine (Lantus (Bkc)) 24 units SC QHS [facility] Last Admin: 05/08/18 22:13 Dose: 24 units Insulin Human Lispro (Humalog Kwikpen (Bkc)) 0 unit SC ACHS [facility]; Protocol Last Admin: 05/09/18 07:30 Dose: 1 u Lactobacillus Acidophilus (Acidophilus) 1 tablet PO DAILY [facility] Last Admin: 05/09/18 09:23 Dose: 1 tablet Lisinopril (Zestril) 10 mg PO DAILY [facility] Last Admin: 05/09/18 09:25 Dose: 10 mg Magnesium Hydroxide (Milk Of Magnesia) 30 ml PO DAILY PRN PRN PRN Reason: Constipation Magnesium Oxide (Mag-Ox 400) 400 mg PO DAILY [facility] Last Admin: 05/09/18 09:28 Dose: 400 mg Multivitamins/Minerals (Multivitamin With Minerals) 1 tablet PO DAILY@0800 [facility] Last Admin: 05/09/18 09:27 Dose: 1 tablet Ondansetron HCl (Zofran) 4 mg IV Q8H PRN PRN PRN Reason: NAUSEA Last Admin: 05/08/18 22:00 Dose: 4 mg Pot[facility] ([facility]) [facility] Last Admin: 05/09/18 09:28 Dose: 20 meq Promethazine HCl (Phenergan) 12.5 mg IV Q6H PRN PRN PRN Reason: NAUSEA/VOMITING Sertraline HCl (Zoloft) 50 mg PO DAILY [facility] Last Admin: 05/09/18 09:23 Dose: 50 mg Sodium Chloride () 5 - 30 ml IV UD PRN PRN Reason: SALINE FLUSH Last Admin: 05/09/18 09:39 Dose: 10 ml Tamsulosin HCl (Flomax) 0.4 mg PO QHS [facility] Last Admin: 05/08/18 22:04 Dose: 0.4 mg Tizanidine HCl (Zanaflex) 4 mg PO QHS [facility] Last Admin: 05/08/18 22:04 Dose: 4 mg Medical Necessity - Tobacco Use Smoking Status: Former smoker Tobacco Use: Cigarettes Assessment/Plan All Active Problems Pneumonia due to Streptococcus pneumoniae (Acute) Acute pancreatitis (Resolved) 1. suspected pneumococcal pneumonia * may be viral * unable to determine if any new changes on CXR compared to June * continue with CTX and azithromycin * Patient has not had any hospitalization since June * follow up SCx and resp panel * Strep and legionella antigens are negative. 2. Pulmonary fibrosis * complicates care * azathioprine on hold * no steroids at this time. 3. DVT proph: LMWH 4. DM2: * uncontrolled * continue Basal and SSI. Code Visit Inpatient E&M: 36843 Subs Hosp L2
--- NOTE | 2018-05-09 12:01 | CASEMGMT ---
Referral received from CRESCENCIO CARTAGENA this date. REFER TO ATTACHED SOCIAL WORK ASSESSMENT FOR ADDITIONAL DETAILS. Does have home O2 at 4L at baseline along with home CPap. Met with patient in his room; introduced self and SW role at [facility]. Initiated discussion regarding discharge planning needs. Patient plans to return home with who has Passport services. He reports that her aide is quite helpful to both of them and that aide will transport him home upon discharge. Discussed option of skilled HHC and home therapies if needed; patient receptive if indicated. Update provided to CRESCENCIO CARTAGENA. RORO Loyd
[2018-05-09 12:10] LABS: Bedside Glucose 281 mg/dL (70-110)
[2018-05-09 16:26] LABS: Bedside Glucose 211 mg/dL (70-110)
[2018-05-09] MEDS: Albuterol 2.5 MG/3 ML VIAL.NEB. INHALATION (16:29)
--- NOTE | 2018-05-09 16:36 | NURSING ---
Coughing, working harder to breathe. called cps, 78% on CPS spo2 monitor. Switched pt over to Non-Rebreather. sp02 94%, still coughing, just had breathing tx as well.
--- NOTE | 2018-05-09 16:41 | NURSING ---
Aware of Vital Signs taken by Cristina Packer RN. Will recheck shortly.
--- NOTE | 2018-05-09 17:32 | NURSING ---
Pt spo2 100% on Non-rebreather but still working hard to breathe. Lung Sounds assessed, see intervention. Pt started at 4L beginning of my shift, then 5L NC now is on non-rebreather. Dr. Lay aware and orders to give Solu-medrol and change the antibotics to Vanco and Zosyn.
[2018-05-09] MEDS: MethylPREDNISolone 125 MG/2 ML Vial 60 MG IV (18:35)
[2018-05-09] MEDS: Piperacil/Tazobactam 3.375 GM/50 ML ML IV (18:36)
--- NOTE | 2018-05-09 18:41 | PCM.RX.CS ---
Consult Pharmacy has been consulted to manage selected antiobiotic: Vancomycin Type of Consult: New start Suspected Infection: Pneumonia Labs: Sodium 138 mmol/L (136-145) 05/09/18 07:43 Potassium 3.9 mmol/L (3.5-5.1) 05/09/18 07:43 Chloride 98 mmol/L (98-107) 05/09/18 07:43 Carbon Dioxide 29.0 mmol/L (21.0-32.0) 05/09/18 07:43 Anion Gap 11 (5-15) 05/09/18 07:43 BUN 15 mg/dL (7-18) 05/09/18 07:43 Creatinine 0.86 mg/dL (0.70-1.30) 05/09/18 07:43 Est GFR (MDRD) Af Amer 110 mL/min (>60) 05/09/18 07:43 Est GFR (MDRD) Non-Af 91 mL/min (>60) 05/09/18 07:43 BUN/Creatinine Ratio 17.4 RATIO (10-20) 05/09/18 07:43 Glucose 179 mg/dL (74-106) H 05/09/18 07:43 Microbiology: Microbiology 05/08/18 22:22 Sputum, Expectorated/Coughed Gram Stain - Final 05/08/18 18:46 Mucosa - Nose Respiratory Panel (PCR) - Final 05/08/18 22:50 Urine, Clean Catch Legionella Antigen - Final 05/08/18 22:50 Urine, Clean Catch Streptococcus pneumoniae Antigen (M - Final 05/08/18 15:21 Mucosa - Nose Influenza Types A,B Direct FA (TANJA) - Final Weight used for dosin.9 kg Estimated Creatinine Clearance: 67 ML/MIN Goal Trough: 15-20 mcg/mL Pharmacy Plan for Drug Dosing: Load with 1750mg (15mg/kg), then continue with 1250mg IV q12h per the [facility] pharmacist-managed IV vancomycin dosing protocol. Obtain trough before the 4th dose. Pharmacy Service will continue to monitor and adjust dosing as required. Follow-Up Labs: Trough Vancomycin Labs to be done on [date and time ordered]: 05/11/18 at 06:30
--- NOTE | 2018-05-09 18:44 | PHA.PHARE_ITS ---
Consult Pharmacy has been consulted to manage selected antiobiotic: Vancomycin Type of Consult: New start Suspected Infection: Pneumonia Labs: Sodium 138 mmol/L (136-145) 05/09/18 07:43 Potassium 3.9 mmol/L (3.5-5.1) 05/09/18 07:43 Chloride 98 mmol/L (98-107) 05/09/18 07:43 Carbon Dioxide 29.0 mmol/L (21.0-32.0) 05/09/18 07:43 Anion Gap 11 (5-15) 05/09/18 07:43 BUN 15 mg/dL (7-18) 05/09/18 07:43 Creatinine 0.86 mg/dL (0.70-1.30) 05/09/18 07:43 Est GFR (MDRD) Af Amer 110 mL/min (>60) 05/09/18 07:43 Est GFR (MDRD) Non-Af 91 mL/min (>60) 05/09/18 07:43 BUN/Creatinine Ratio 17.4 RATIO (10-20) 05/09/18 07:43 Glucose 179 mg/dL (74-106) H 05/09/18 07:43 Microbiology: Microbiology 05/08/18 22:22 Sputum, Expectorated/Coughed Gram Stain - Final 05/08/18 18:46 Mucosa - Nose Respiratory Panel (PCR) - Final 05/08/18 22:50 Urine, Clean Catch Legionella Antigen - Final 05/08/18 22:50 Urine, Clean Catch Streptococcus pneumoniae Antigen (M - Final 05/08/18 15:21 Mucosa - Nose Influenza Types A,B Direct FA (TANJA) - Final Weight used for dosin.9 kg Estimated Creatinine Clearance: 67 ML/MIN Goal Trough: 15-20 mcg/mL Pharmacy Plan for Drug Dosing: Load with 1750mg (15mg/kg), then continue with 1250mg IV q12h per the [facility] pharmacist-managed IV vancomycin dosing protocol. Obtain trough before the 4th dose. Pharmacy Service will continue to monitor and adjust dosing as required. Follow-Up Labs: Trough Vancomycin Labs to be done on [date and time ordered]: 05/11/18 at 06:30
--- NOTE | 2018-05-09 20:30 | NURSING ---
Addendum entered by Ev Vasquez 05/09/18 20:56: blood glucose 285, vs obtained and assessment completed. HR 106 but regular. Denies CP or worsening of SOB. On 50% venti mask, sat 96%. Cool cloth to forehead. Pt states feeling better. Requests snack. Denies other needs. Original Note: Pt c/o feels clammy. BGT checked,
[2018-05-09 20:31] LABS: Bedside Glucose 285 mg/dL (70-110)
[2018-05-09] MEDS: Tamsulosin HCl 0.4 MG Capsule PO (21:45)
[2018-05-09] MEDS: tiZANidine HCl 2 MG Tablet 4 MG PO (21:49)
[2018-05-09] MEDS: Atorvastatin Calcium 10 MG Tablet PO (21:50)
[2018-05-10] VITALS (16 sets, daily range): BP systolic 108–148; BP diastolic 48–83; PULSE 24–121; RESP 16–32; TEMP 35.9–36.9; O2SAT 88–99
[2018-05-10] MEDS: 0.9% NaCl Peripheral Flush Adult/Peds IV ×3 (00:46→21:14)
[2018-05-10] MEDS: MethylPREDNISolone 125 MG/2 ML Vial 60 MG IV ×4 (00:46→18:42)
[2018-05-10] MEDS: Ipratropium/Albuterol Sulfate 3 ML AMPUL.NEB INHALATION ×4 (01:11→19:30)
[2018-05-10] MEDS: Piperacil/Tazobactam 3.375 GM/50 ML ML IV ×3 (06:36→21:44)
[2018-05-10] MEDS: Gabapentin 600 MG Tablet PO ×3 (06:39→21:34)
[2018-05-10] MEDS: Insulin Lispro 100 UNIT/ML INSULN.PEN SC ×4 (06:39→21:37)
[2018-05-10 06:56] LABS: Bedside Glucose 332 mg/dL (70-110)
[2018-05-10 08:07] LABS: Absolute Lymphocyte Count 0.34 X10^3/ul (0.83-4.51); Absolute Neutrophil Count 6.8 X10^3/uL (2.0-7.7); Basophil# 0.01 X10^3/uL; Basophil% 0.1 % (0-1); Differential Indicated SCAN CRITERIA MET; Eosinophil# 0.01 X10^3/uL; Eosinophils% 0.1 % (0-5); Hematocrit 33.9 % (40-54); Hemoglobin 11.2 g/dl (13.0-16.5); Lymphocyte # 0.34 X10^3/ul (4.0); Lymphocyte % 4.7 % (19-41); Mean Corpuscular Volume 90.9 fL (80-94); Mean Platelet Vol. 9.9 fl (6.2-12.0); Monocyte# 0.13 X10^3/uL; Monocyte% 1.8 % (0-10); Neutrophil % 93.2 % (47-70); POSITIVE COUNT NO; POSITIVE DIFFERENTIAL YES; POSITIVE MORPHOLOGY NO; Platelet Count 111 K/mm3 (150-450); RBC Distribution Width CV 14.4 % (11.6-14.6); RBC Distribution Width SD 47.9 fl (35.1-43.9); Red Blood Count 3.73 M/mm3 (4.6-6.2); White Blood Count 7.3 K/mm3 (4.4-11.0)
[2018-05-10] MEDS: Ascorbic Acid 500 MG Tablet PO (08:35)
[2018-05-10] MEDS: Multivitamins,Ther W-Minerals Tablet 1 TABLET PO (08:36)
[2018-05-10] MEDS: Famotidine 20 MG Tablet PO ×2 (08:36→21:34)
[2018-05-10] MEDS: guaiFENesin 1,200 MG Tablet 1200 MG PO ×2 (08:36→21:34)
[2018-05-10] MEDS: Aspirin 81 MG TAB.CHEW PO (08:37)
[2018-05-10] MEDS: Enoxaparin 40 MG/0.4 ML Syringe SC (08:38)
[2018-05-10] MEDS: Sertraline 50 MG Tablet PO (08:39)
[2018-05-10] MEDS: Magnesium Oxide 400 MG Tablet PO (08:40)
[2018-05-10] MEDS: Lisinopril 10 MG Tablet PO (08:40)
--- NOTE | 2018-05-10 08:52 | PCM.PN.HOSP ---
Patient Problems: Active and Suspected Problems Pneumonia due to Streptococcus pneumoniae (Acute) Subjective: increased oxygen requirements yesterday. patient denies any new shortness of breath. Vitals/I&O's: Vital Signs Temp Pulse Resp BP Pulse Ox 36.6 C 68 16 121/53 H 94 05/10/18 04:49 05/10/18 06:53 05/10/18 06:53 05/10/18 04:49 05/10/18 06:53 Oxygen Flow Rate (L/min) 100 Oxygen Delivery Method Venturi Mask Weight: 108.908 kg Body Mass Index (BMI) 36.5 Intake and Output for Last 24 Hours 05/08/18 05/09/18 05/10/18 23:59 23:59 23:59 Intake Total 1340 / 1340 1323 / 1323 Output Total 1250 / 1250 Balance 1340 / 1340 73 / 73 General: Alert, Cooperative, No apparent distress HEENT: Atraumatic, Normocephalic Oral: Moist Mucosa, No Gingival or Mucosal Lesions/ Ulcerations Neck: No Nodes, Thyroid Normal Size and Texture Lungs: Clear to auscultation, Diminished, - - fine crackles. Cardiovascular: Regular rate, Regular Rhythm, Normal S1, Normal S2 Abdomen: Bowel Sounds Present, Soft, Non Tender, Non-Distended, No Hepato-splenomegaly Extremities: No edema, No Calf Tenderness Skin: No rashes, No breakdown Musculoskeletal: No Tenderness to Palpation of Joints or Extremities, No Muscle Wasting Psych/Mental Status: Normal Affect, Appropriate Microbiology Past 72 Hours 05/08/18 22:22 Sputum, Expectorated/Coughed Gram Stain - Final 05/08/18 18:46 Mucosa - Nose Respiratory Panel (PCR) - Final 05/08/18 22:50 Urine, Clean Catch Legionella Antigen - Final 05/08/18 22:50 Urine, Clean Catch Streptococcus pneumoniae Antigen (M - Final 05/08/18 15:21 Mucosa - Nose Influenza Types A,B Direct FA (TANJA) - Final Laboratory Results 05/09/18 11:58: POC Glucose 281 H 05/09/18 16:20: POC Glucose 211 H 05/09/18 20:28: POC Glucose 285 H 05/10/18 06:35: POC Glucose 332 H 05/10/18 07:40: WBC 7.3, RBC 3.73 L, Hgb 11.2 L, Hct 33.9 L, MCV 90.9, MCH 30.0, MCHC 33.0, RDW 14.4, RDW Differential 47.9 H, Plt Count 111 L, MPV 9.9, Immature Gran % (Auto) 0.100, Neut % (Auto) 93.2 H, Lymph % (Auto) 4.7 L, [place] % (Auto) 1.8, Eos % (Auto) 0.1, Baso % (Auto) 0.1, Absolute Neuts (auto) 6.8, Absolute Lymphs (auto) 0.34 L, Total Counted Not Reportable 05/10/18 07:40: Sodium Pending, Potassium Pending, Chloride Pending, Carbon Dioxide Pending, Anion Gap Pending, BUN Pending, Creatinine Pending, Est GFR (MDRD) Af Amer Pending, Est GFR (MDRD) Non-Af Pending, BUN/Creatinine Ratio Pending, Glucose Pending, Calcium Pending Current Medications Acetaminophen (Tylenol) 650 mg PO Q4H PRN PRN PRN Reason: FEVER Last Admin: 05/09/18 17:20 Dose: 650 mg Al Hydroxide/Mg Hydroxide (Mylanta Ii) 30 ml PO Q6H PRN PRN PRN Reason: Gastric burning Last Admin: 05/08/18 22:00 Dose: 30 ml Albuterol Sulfate (Ventolin Aerosols) 2.5 mg INHALATION Q2H PRN PRN PRN Reason: SHORTNESS OF BREATH Last Admin: 05/09/18 16:29 Dose: 2.5 mg Albuterol/Ipratropium (Duoneb) 3 ml INHALATION Q6H.RT [facility] Last Admin: 05/10/18 06:53 Dose: 3 ml Ascorbic Acid (Vitamin C) 500 mg PO DAILY@0800 [facility] Last Admin: 05/10/18 08:35 Dose: 500 mg Aspirin (Aspirin, Baby) 81 mg PO DAILY@0800 [facility] Last Admin: 05/10/18 08:37 Dose: 81 mg Atorvastatin Calcium (Lipitor) 10 mg PO QHS [facility] Last Admin: 05/09/18 21:50 Dose: 10 mg Bisacodyl (Dulcolax) 10 mg RECTAL DAILY [facility] Last Admin: 05/10/18 08:38 Dose: Not Given Enoxaparin Sodium (Lovenox) 40 mg SC DAILY@1000 [facility] Last Admin: 05/10/18 08:38 Dose: 40 mg Famotidine (Pepcid) 20 mg PO BID [facility] Last Admin: 05/10/18 08:36 Dose: 20 mg Fluticasone Propionate (Flonase Nasal [place]) 2 spray NASAL DAILY PRN PRN PRN Reason: CONGESTION Last Admin: 05/08/18 22:05 Dose: 2 spray Gabapentin (Neurontin) 600 mg PO TID [facility] Last Admin: 05/10/18 06:39 Dose: 600 mg Guaifenesin (Mucinex) 1,200 mg PO BID [facility] Last Admin: 05/10/18 08:36 Dose: 1,200 mg Sodium Chloride () 500 mls @ 999 mls/hr IV .Q31M ONE Last Admin: 05/08/18 14:37 Dose: 999 mls/hr Piperacillin Sod/Tazobactam Sod (Zosyn) 3.375 gm in 50 mls @ 12.5 mls/hr IV Q8 [facility] Last Admin: 05/10/18 06:36 Dose: 12.5 mls/hr Vancomycin IV Pharmacy to Dose (1 ea/ Sodium Chloride) 500 mls @ 250 mls/hr IV X1 PRN; Protocol PRN Reason: Rx to Dose Vancomycin HCl 1,250 mg/ (Sodium Chloride) 275 mls @ 167 mls/hr IV Q12H [facility] Last Admin: 05/10/18 06:36 Dose: 167 mls/hr Insulin Glargine (Lantus (Bkc)) 24 units SC QHS [facility] Last Admin: 05/09/18 21:48 Dose: 24 units Insulin Human Lispro (Humalog Kwikpen (Bkc)) 0 unit SC ACHS [facility]; Protocol Last Admin: 05/10/18 06:39 Dose: 5 u Lactobacillus Acidophilus (Acidophilus) 1 tablet PO DAILY [facility] Last Admin: 05/10/18 08:35 Dose: 1 tablet Lisinopril (Zestril) 10 mg PO DAILY [facility] Last Admin: 05/10/18 08:40 Dose: 10 mg Magnesium Hydroxide (Milk Of Magnesia) 30 ml PO DAILY PRN PRN PRN Reason: Constipation Magnesium Oxide (Mag-Ox 400) 400 mg PO DAILY [facility] Last Admin: 05/10/18 08:40 Dose: 400 mg Methylprednisolone (Solu-Medrol) 60 mg IV Q6 [facility] Last Admin: 05/10/18 06:39 Dose: 60 mg Multivitamins/Minerals (Multivitamin With Minerals) 1 tablet PO DAILY@0800 [facility] Last Admin: 05/10/18 08:36 Dose: 1 tablet Ondansetron HCl (Zofran) 4 mg IV Q8H PRN PRN PRN Reason: NAUSEA Last Admin: 05/08/18 22:00 Dose: 4 mg Phenol/Menthol (Chloraseptic (Bkc)) 1 spray MM Q4H PRN PRN PRN Reason: SORE THROAT Potassium Chloride (K-Dur) 20 meq PO BIDCM [facility] Last Admin: 05/10/18 08:38 Dose: 20 meq Promethazine HCl (Phenergan) 12.5 mg IV Q6H PRN PRN PRN Reason: NAUSEA/VOMITING Sertraline HCl (Zoloft) 50 mg PO DAILY [facility] Last Admin: 05/10/18 08:39 Dose: 50 mg Sodium Chloride () 5 - 30 ml IV UD PRN PRN Reason: SALINE FLUSH Last Admin: 05/10/18 06:36 Dose: 10 ml Tamsulosin HCl (Flomax) 0.4 mg PO QHS [facility] Last Admin: 05/09/18 21:45 Dose: 0.4 mg Tizanidine HCl (Zanaflex) 4 mg PO QHS [facility] Last Admin: 05/09/18 21:49 Dose: 4 mg Medical Necessity - Tobacco Use Smoking Status: Former smoker Tobacco Use: Cigarettes Assessment/Plan All Active Problems Pneumonia due to Streptococcus pneumoniae (Acute) Acute pancreatitis (Resolved) 1. suspected pneumococcal pneumonia may be viral v exacerbation of pulmonary fibrosis unable to determine if any new changes on CXR compared to June abx changed from Azithromycin and CTX to Vanc and Zosyn on the Strep Ag, Leg Ag, resp viral panel, influenza negative Sputum culture pending 2. Pulmonary fibrosis complicates care azathioprine on hold started on Solu-Medrol 05/[address] if there is new infiltrate, etc. consult pulm (Dr. Pressley) 3. DVT proph: LMWH 4. DM2: uncontrolled aggravated by steroids increase basal from 24 to 30 schedule log continue SSI to supplement log--if needed. Code Visit Inpatient E&M: 86826 Subs Hosp L2
--- NOTE | 2018-05-10 08:57 | PN_ITS ---
Patient Problems: Active and Suspected Problems Pneumonia due to Streptococcus pneumoniae (Acute) Subjective: increased oxygen requirements yesterday. patient denies any new shortness of breath. Vitals/I&O's: Vital Signs Temp Pulse Resp BP Pulse Ox 36.6 C 68 16 121/53 H 94 05/10/18 04:49 05/10/18 06:53 05/10/18 06:53 05/10/18 04:49 05/10/18 06:53 Oxygen Flow Rate (L/min) 100 Oxygen Delivery Method Venturi Mask Weight: 108.908 kg Body Mass Index (BMI) 36.5 Intake and Output for Last 24 Hours 05/08/18 05/09/18 05/10/18 23:59 23:59 23:59 Intake Total 1340 / 1340 1323 / 1323 Output Total 1250 / 1250 Balance 1340 / 1340 73 / 73 General: Alert, Cooperative, No apparent distress HEENT: Atraumatic, Normocephalic Oral: Moist Mucosa, No Gingival or Mucosal Lesions/ Ulcerations Neck: No Nodes, Thyroid Normal Size and Texture Lungs: Clear to auscultation, Diminished, - - fine crackles. Cardiovascular: Regular rate, Regular Rhythm, Normal S1, Normal S2 Abdomen: Bowel Sounds Present, Soft, Non Tender, Non-Distended, No Hepato- splenomegaly Extremities: No edema, No Calf Tenderness Skin: No rashes, No breakdown Musculoskeletal: No Tenderness to Palpation of Joints or Extremities, No Muscle Wasting Psych/Mental Status: Normal Affect, Appropriate Microbiology Past 72 Hours 05/08/18 22:22 Sputum, Expectorated/Coughed Gram Stain - Final 05/08/18 18:46 Mucosa - Nose Respiratory Panel (PCR) - Final 05/08/18 22:50 Urine, Clean Catch Legionella Antigen - Final 05/08/18 22:50 Urine, Clean Catch Streptococcus pneumoniae Antigen (M - Final 05/08/18 15:21 Mucosa - Nose Influenza Types A,B Direct FA (TANJA) - Final Laboratory Results 05/09/18 11:58: POC Glucose 281 H 05/09/18 16:20: POC Glucose 211 H 05/09/18 20:28: POC Glucose 285 H 05/10/18 06:35: POC Glucose 332 H 05/10/18 07:40: WBC 7.3, RBC 3.73 L, Hgb 11.2 L, Hct 33.9 L, MCV 90.9, MCH 30.0, MCHC 33.0, RDW 14.4, RDW Differential 47.9 H, Plt Count 111 L, MPV 9.9, Immature Gran % (Auto) 0.100, Neut % (Auto) 93.2 H, Lymph % (Auto) 4.7 L, [place] % (Auto) 1.8, Eos % (Auto) 0.1, Baso % (Auto) 0.1, Absolute Neuts (auto) 6.8, Absolute Lymphs (auto) 0.34 L, Total Counted Not Reportable 05/10/18 07:40: Sodium Pending, Potassium Pending, Chloride Pending, Carbon Dioxide Pending, Anion Gap Pending, BUN Pending, Creatinine Pending, Est GFR (MDRD) Af Amer Pending, Est GFR (MDRD) Non-Af Pending, BUN/Creatinine Ratio Pending, Glucose Pending, Calcium Pending Current Medications Acetaminophen (Tylenol) 650 mg PO Q4H PRN PRN PRN Reason: FEVER Last Admin: 05/09/18 17:20 Dose: 650 mg Al Hydroxide/Mg Hydroxide (Mylanta Ii) 30 ml PO Q6H PRN PRN PRN Reason: Gastric burning Last Admin: 05/08/18 22:00 Dose: 30 ml Albuterol Sulfate (Ventolin Aerosols) 2.5 mg INHALATION Q2H PRN PRN PRN Reason: SHORTNESS OF BREATH Last Admin: 05/09/18 16:29 Dose: 2.5 mg Albuterol/Ipratropium (Duoneb) 3 ml INHALATION Q6H.RT [facility] Last Admin: 05/10/18 06:53 Dose: 3 ml Ascorbic Acid (Vitamin C) 500 mg PO DAILY@0800 [facility] Last Admin: 05/10/18 08:35 Dose: 500 mg Aspirin (Aspirin, Baby) 81 mg PO DAILY@0800 [facility] Last Admin: 05/10/18 08:37 Dose: 81 mg Atorvastatin Calcium (Lipitor) 10 mg PO QHS [facility] Last Admin: 05/09/18 21:50 Dose: 10 mg Bisacodyl (Dulcolax) 10 mg RECTAL DAILY [facility] Last Admin: 05/10/18 08:38 Dose: Not Given Enoxaparin Sodium (Lovenox) 40 mg SC DAILY@1000 [facility] Last Admin: 05/10/18 08:38 Dose: 40 mg Famotidine (Pepcid) 20 mg PO BID [facility] Last Admin: 05/10/18 08:36 Dose: 20 mg Fluticasone Propionate (Flonase Nasal [place]) 2 spray NASAL DAILY PRN PRN PRN Reason: CONGESTION Last Admin: 05/08/18 22:05 Dose: 2 spray Gabapentin (Neurontin) 600 mg PO TID [facility] Last Admin: 05/10/18 06:39 Dose: 600 mg Guaifenesin (Mucinex) 1,200 mg PO BID [facility] Last Admin: 05/10/18 08:36 Dose: 1,200 mg Sodium Chloride () 500 mls @ 999 mls/hr IV .Q31M ONE Last Admin: 05/08/18 14:37 Dose: 999 mls/hr Piperacillin Sod/Tazobactam Sod (Zosyn) 3.375 gm in 50 mls @ 12.5 mls/hr IV Q8 [facility] Last Admin: 05/10/18 06:36 Dose: 12.5 mls/hr Vancomycin IV Pharmacy to Dose (1 ea/ Sodium Chloride) 500 mls @ 250 mls/hr IV X1 PRN; Protocol PRN Reason: Rx to Dose Vancomycin HCl 1,250 mg/ (Sodium Chloride) 275 mls @ 167 mls/hr IV Q12H [facility] Last Admin: 05/10/18 06:36 Dose: 167 mls/hr Insulin Glargine (Lantus (Bkc)) 24 units SC QHS [facility] Last Admin: 05/09/18 21:48 Dose: 24 units Insulin Human Lispro (Humalog Kwikpen (Bkc)) 0 unit SC ACHS [facility]; Protocol Last Admin: 05/10/18 06:39 Dose: 5 u Lactobacillus Acidophilus (Acidophilus) 1 tablet PO DAILY [facility] Last Admin: 05/10/18 08:35 Dose: 1 tablet Lisinopril (Zestril) 10 mg PO DAILY [facility] Last Admin: 05/10/18 08:40 Dose: 10 mg Magnesium Hydroxide (Milk Of Magnesia) 30 ml PO DAILY PRN PRN PRN Reason: Constipation Magnesium Oxide (Mag-Ox 400) 400 mg PO DAILY [facility] Last Admin: 05/10/18 08:40 Dose: 400 mg Methylprednisolone (Solu-Medrol) 60 mg IV Q6 [facility] Last Admin: 05/10/18 06:39 Dose: 60 mg Multivitamins/Minerals (Multivitamin With Minerals) 1 tablet PO DAILY@0800 [facility] Last Admin: 05/10/18 08:36 Dose: 1 tablet Ondansetron HCl (Zofran) 4 mg IV Q8H PRN PRN PRN Reason: NAUSEA Last Admin: 05/08/18 22:00 Dose: 4 mg Phenol/Menthol (Chloraseptic (Bkc)) 1 spray MM Q4H PRN PRN PRN Reason: SORE THROAT Potassium Chloride (K-Dur) 20 meq PO BIDCM [facility] Last Admin: 05/10/18 08:38 Dose: 20 meq Promethazine HCl (Phenergan) 12.5 mg IV Q6H PRN PRN PRN Reason: NAUSEA/VOMITING Sertraline HCl (Zoloft) 50 mg PO DAILY [facility] Last Admin: 05/10/18 08:39 Dose: 50 mg Sodium Chloride () 5 - 30 ml IV UD PRN PRN Reason: SALINE FLUSH Last Admin: 05/10/18 06:36 Dose: 10 ml Tamsulosin HCl (Flomax) 0.4 mg PO QHS [facility] Last Admin: 05/09/18 21:45 Dose: 0.4 mg Tizanidine HCl (Zanaflex) 4 mg PO QHS [facility] Last Admin: 05/09/18 21:49 Dose: 4 mg Medical Necessity - Tobacco Use Smoking Status: Former smoker Tobacco Use: Cigarettes Assessment/Plan All Active Problems Pneumonia due to Streptococcus pneumoniae (Acute) Acute pancreatitis (Resolved) 1. suspected pneumococcal pneumonia * may be viral v exacerbation of pulmonary fibrosis * unable to determine if any new changes on CXR compared to June * abx changed from Azithromycin and CTX to Vanc and Zosyn on the * Strep Ag, Leg Ag, resp viral panel, influenza negative * Sputum culture pending 2. Pulmonary fibrosis * complicates care * azathioprine on hold * started on Solu-Medrol 05/09 * Check CT if there is new infiltrate, etc. * consult pulm (Dr. Pressley) 3. DVT proph: LMWH 4. DM2: * uncontrolled * aggravated by steroids * increase basal from 24 to 30 * schedule log * continue SSI to supplement log--if needed. Code Visit Inpatient E&M: [id number] Subs Hosp L2
--- NOTE | 2018-05-10 08:59 | CT_ITS ---
STUDY: CT CHEST WITH CONTRAST REASON FOR EXAM: Male, 78 years old. Shortness of breath and cough. RADIATION DOSAGE (If Supplied By Facility): CTDIvol = ( 15.06 ) mGy, DLP = ( 664.51 ) mGycm TECHNIQUE: Transaxial imaging was performed following intravenous administration of 100 ml of Isovue 300 contrast material. Multiplanar coronal and sagittal images were reformatted. Individualized dose optimization techniques were used for this CT. COMPARISON: Prior comparable comparison studies are not available for review at this time. FINDINGS: The lungs are underexpanded. There is heterogeneous groundglass attenuation in both upper lobes, right middle lobe, lingula and lower lobes. There is bronchiectasis in both lower lobes. There are lucencies within the right middle lobe that may be the result paraseptal emphysema. Interstitial thickening is visible in both lower lobes that may represent sequela pulmonary fibrosis. There is a calcified nodule in the left lower lobe probably is a granuloma. There is no demonstrated pleural abnormality. There are calcifications of the coronary arteries. There are calcifications of the coronary arteries. There are enlarged mediastinal lymph nodes in the subcarinal region, pretracheal and right paratracheal regions. One of the larger right-sided mediastinal power masses measures 3.7 x 2.1 x 1.7 cm. Normal hilar regions. There is prominence of the pulmonary hilar arteries without peripheral pulmonary vascular congestion. There is atherosclerotic calcification of the aortic arch with tortuosity and elongation of the aortic arch and descending thoracic aorta. Maximum transverse dimension of the ascending thoracic aorta measures approximately 4.4 cm. There are multi-level degenerative changes of the thoracic spine. There is a left-sided renal cyst measuring approximately 2 cm in greatest dimension. There are calcified splenic granulomas. CT/Chest WITH Contrast IMPRESSION: 1. 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 Sequela of interstitial pneumonitis is possible well. 2. Mediastinal lymphadenopathy. 3. Cardiomegaly and sequela of coronary artery vascular disease. Electronically Signed: Tasha Gann MD at 10:36 EST , Service support ,
[2018-05-10 09:53] LABS: Anion Gap 11 (5-15); BUN 20 mg/dL (7-18); BUN/Creat Ratio 18.3 RATIO (10-20); Calcium,Total 8.5 mg/dL (8.5-10.1); Chloride 98 mmol/L (98-107); Creatinine, Serum 1.09 mg/dL (0.70-1.30); EST Glomerular Filtration Rate 69 mL/min (>60); Est Glom Filt Rate - Afr Amer 84 mL/min (>60); Estimated Creatinine Clearance 53.17 ml/min; Glucose 323 mg/dL (74-106); Potassium 4.2 mmol/L (3.5-5.1); Sodium Level 135 mmol/L (136-145)
[2018-05-10] MEDS: Insulin Lispro 100 UNIT/ML INSULN.PEN 8 UNIT SQ ×2 (11:51→17:04)
[2018-05-10 12:01] LABS: Bedside Glucose 357 mg/dL (70-110)
[2018-05-10] MEDS: Acetaminophen 325 MG Tablet 650 MG PO (15:33)
[2018-05-10] MEDS: Phenol/Sodium Phenolate 180ML 1 SPRAY MM (15:52)
[2018-05-10 18:25] LABS: Bedside Glucose 329 mg/dL (70-110)
--- NOTE | 2018-05-10 18:32 | ECHOD_ITS ---
Reason For Study: DYSPNEA/SOB Procedure This was a 2D Doppler, Color Flow transthoracic echocardiogram. The study was technically difficult. Due to body habitus and dyspnea. Deferred Definity due to increased PAP >55 mmHg. Exam performed portable in patient room. Left Ventricle Normal LV size. Left ventricular systolic function is normal. The estimated ejection fraction is 75 %. Stage 1 diastolic dysfunction. No regional wall motion abnormalities noted. Right Ventricle Normal RV size. Normal systolic function. Atria Normal left atrium. Normal right atrium. Mitral Valve There is moderate mitral annular calcification. Tricuspid Valve Normal tricuspid valve. Moderate (2+) tricuspid valve insufficiency. Pulmonary artery systolic pressure is 58 mmHg. Moderate pulmonary hypertension. Aortic Valve Trisinus/trileaflet aortic valve. Pulmonic Valve The pulmonic valve is not well visualized. Great Vessels Normal aortic root. The pulmonary artery is normal size. Normal inferior vena cava. Pericardium/Pleural No pericardial effusion. MMode/2D Measurements & Calculations LVIDd: 4.0 cm IVSd: 1.2 cm Ao root diam: 3.7 cm LVIDs: 2.0 cm LVPWd: 1.1 cm LA dimension: 4.5 cm RVDd: 3.0 cm FS: 50.0 % LAV(MOD-bp): 66.9 ml EDV(MOD-sp4): 98.9 ml EDV(MOD-sp2): 67.1 ml LAV(MOD-bp) Indexed: 30.3 ml/m2 ESV(MOD-sp4): 32.2 ml EF(MOD-sp2): 67.3 % LAV(MOD-sp2): 66.0 ml EF(MOD-sp4): 67.4 % LAV(MOD-sp4): 67.0 ml SV(MOD-sp4): 66.7 ml SV(MOD-sp2): 45.2 ml LA A4 area: 21.9 cm2 LA dimension(2D): 4.5 cm Doppler Measurements & Calculations MV E max gonsalo: 101.5 cm/sec Lat Peak E' Gonsalo: 5.5 cm/sec Med Peak E' Gonsalo: 6.3 cm/sec MV A max gonsalo: 158.1 cm/sec E/E' lat: 18.4 E/E' med: 16.2 MV E/A: 0.64 Ao V2 max: 171.5 cm/sec LV V1 max: 112.5 cm/sec PA V2 max: 134.6 cm/sec Ao max P.8 mmHg LV V1 max P.1 mmHg TR max gonsalo: 362.6 cm/sec TR max P.3 mmHg Interpretation Summary Normal LV size. Left ventricular systolic function is normal. The estimated ejection fraction is 75 %. Stage 1 diastolic dysfunction. Moderate pulmonary hypertension. Moderate (2+) tricuspid valve insufficiency. Ordering Physician: Marty Lay Referring Physician: Flory Pantoja Performed By: Abiola Rodriguez RDCS, RVT
--- NOTE | 2018-05-10 18:33 | CON.PCM_ITS ---
Reason for Consult History of Present Illness: The patient is a 78 year old M known to me for interstitial lung disease with rheumatoid arthritis. Rheumatoid arthritis is 5 years old. He has a nonspecific interstitial pneumonitis pattern with RA treated effectively with pulse steroids early on and then preserved with Imuran. He is co-managed with the electrical tech at [facility]. He was recently seen at [facility] 2-1/2 weeks ago, he was stable then with some drop in pulmonary function capacity. His rheumatology evaluation revealed stable arthritis. He remains on 4 L oxygen. Oxygen requirements have not increased throughout the last year. He reports that over the last week he has had interval development of green sputum, brown sputum shifted over from a clear to yellow. In addition he has lost his appetite, become more dyspneic, noticed hypoxia with saturations drifting to 70%. He has had a week of dropping oxygen saturations loss of energy and increase in cough. On presentation his white count was not elevated, he has clinically responded to empiric antibiotic regimen. His appetite is improved and he continues to cough up dark sputum. He remains on high flow O2, 100% nonrebreather. The patient is not DNR and he is willing to proceed to [facility] if he deteriorates. [] Past Medical History Past Medical History (Chronic Problems): Chronic Problems Obstructive sleep apnea of adult (Chronic) Pulmonary fibrosis (Chronic) Chronic respiratory failure (Chronic) Diabetic neuropathy (Chronic) Hypertension (Chronic) Gastro-esophageal reflux (Chronic) Hyperlipidemia (Chronic) Type 2 diabetes mellitus (Chronic) Hypogonadism male (Chronic) Coronary artery arteriosclerosis (Chronic) Allergies No Known Allergies Allergy (Verified 06/27/17 00:39) Home Medications: Ambulatory Orders Medication Instructions Recorded Alfuzosin HCl [Uroxatral] 10 mg PO QHS 11/09/13 Atorvastatin Calcium [Lipitor] 10 mg PO QHS 11/09/13 Flaxseed Oil/Mobile 3,6,9 [Sv 1 cap PO DAILY 11/09/13 Flaxseed Oil 1,300 mg Sftgl] Mometasone Furoate [Nasonex] 2 spray NASAL DAILY PRN PRN 11/09/13 Potassium Chloride [K-Dur] 20 meq PO BID 11/09/13 Tizanidine HCl [Zanaflex] 2 - 4 mg PO QHS 11/09/13 Vitamin B Complex 1 cap PO DAILY 05/13/14 Glucosamine Sulf/Chondroitin A 1 each PO BID 10/27/14 [Glucosamine-Chondroitin Cap] Ranitidine [Zantac] 150 mg PO BID 06/27/17 Sertraline HCl [Zoloft] 50 mg PO DAILY #30 tab 07/02/17 Ascorbic Acid 500 mg PO DAILY 05/08/18 Aspirin E.C. [Ecotrin] 81 mg PO DAILY@0800 05/08/18 Azathioprine 100 mg PO DAILY 05/08/18 Benazepril HCl [Lotensin] 10 mg PO DAILY 05/08/18 Gabapentin [Neurontin] 600 mg PO TID 05/08/18 Insulin Detemir [Levemir FlexPen] 24 units SC QHS 05/08/18 Insulin Lispro [Humalog KwikPen] 6 units SQ TID 05/08/18 Magnesium Oxide [Magnesium] 1,000 mg PO BID 05/08/18 Multivit-Min/FA/Lycopen/Lutein 1 tab PO DAILY 05/08/18 [Centrum Silver Men Tablet] Surgical History: herniorrhaphy, - - Bilateral eyelid surgery Psychiatric History: Depression Lives: Spouse/ Significant Other Smoking Status: Former smoker Tobacco Use: Cigarettes Alcohol: None Drugs: None - *Family History Maternal History Items: Heart Disease Paternal History Items: - - Bone and prostate cancer. Review of Systems Constitutional: Reports: Malaise, Fatigue. Denies: Chills, Fever, Weight Change HEENT: Reports: Difficulty Hearing. Denies: Head Aches, Sinus Congestion, Sinus Drainage Cardiovascular: Reports: - - Minimal edema. Denies: Chest Pain, Palpitations Respiratory: Denies: Cough, Shortness of breath at rest, Sputum production Gastrointestinal: Reports: - - Constipation now improved. Denies: Abdominal Pain, Nausea, Vomiting Genitourinary: Reports: - - No hematuria. Denies: Dysuria Musculoskeletal: Denies: Joint Pain, Joint Tenderness Skin: Denies: Rash, Wounds Neurological: Denies: Numbness, Tingling, Focal weakness Psychiatric: Denies: Anxiety, Depression, Homicidal Ideations, Suicidal Ideations Hematologic/ Lymphatic: Denies: Easy Bruising, Easy Bleeding Patient Problems: Active and Suspected Problems Pneumonia due to Streptococcus pneumoniae (Acute) - Physical Exam General: Alert, Oriented x3, Cooperative, Well nourished HEENT: Atraumatic, EOMI, Normocephalic, - - The patient is edentulous without any throat or oral lesions Oral: Moist Mucosa, No Gingival or Mucosal Lesions/ Ulcerations, Dry Mucosa Neck: Supple, No JVD, No Nodes, Trachea Midline Lungs: - - Bibasilar fine rales, 30-40% up the left chest 25% right chest, heard laterally, posteriorly, no wheeze no rhonchi no cough Cardiovascular: Regular rate, Normal S1, Normal S2, Tachycardic Extremities: No clubbing, No cyanosis, - - Trace pitting edema Skin: No rashes, No breakdown Musculoskeletal: No Tenderness to Palpation of Joints or Extremities Lymphatic: No Cervical, Supraclavicular, or Inguinal Adenopathy Neurological: Cranial nerves II-XII grossly intact, Neuro grossly intact, Motor Exam 5/5 strength throughout Psych/Mental Status: Normal Affect, Appropriate Vital Signs Temp Pulse Resp BP Pulse Ox 98.2 F 105 H 24 H 141/71 H 94 05/10/18 16:30 05/10/18 16:30 05/10/18 16:30 05/10/18 16:30 05/10/18 16:30 Oxygen Flow Rate (L/min) 6 Oxygen Delivery Method Nasal Cannula Weight: 108.908 kg Body Mass Index (BMI) 36.5 Intake and Output for Last 24 Hours 05/08/18 05/09/18 05/10/18 23:59 23:59 23:59 Intake Total 1340 / 1340 1982 Output Total 1750 / 1750 Balance 1340 / 1340 233 / 233 Microbiology Past 72 Hours 05/08/18 14:00 Blood Culture - Preliminary Blood Culture (Wb) #2 - Anticubital Right No growth in 48 hours. 05/08/18 14:05 Blood Culture - Preliminary Blood Culture (Wb) - Right Wrist No growth in 48 hours. 05/08/18 22:22 Gram Stain - Final Sputum, Expectorated/Coughed Respiratory Culture - Preliminary Staphylococcus aureus 05/08/18 18:46 Respiratory Panel (PCR) - Final Mucosa - Nose 05/08/18 22:50 Legionella Antigen - Final Urine, Clean Catch 05/08/18 22:50 Streptococcus pneumoniae Antigen (M - Final Urine, Clean Catch 05/08/18 15:21 Influenza Types A,B Direct FA (TANJA) - Final Mucosa - Nose Laboratory Tests Past 24 Hrs 05/10/18 05/10/18 07:40 07:40 WBC 7.3 RBC 3.73 L Hgb 11.2 L Hct 33.9 L MCV 90.9 MCH 30.0 MCHC 33.0 RDW 14.4 RDW Differential 47.9 H Plt Count 111 L MPV 9.9 Immature Gran % (Auto) 0.100 Neut % (Auto) 93.2 H Lymph % (Auto) 4.7 L Frio % (Auto) 1.8 Eos % (Auto) 0.1 Baso % (Auto) 0.1 Absolute Neuts (auto) 6.8 Absolute Lymphs (auto) 0.34 L Total Counted Not Reportable Sodium 135 L Potassium 4.2 Chloride 98 Carbon Dioxide 26.0 Anion Gap 11 BUN 20 H Creatinine 1.09 Estim Creat Clear Calc 53.17 Est GFR (MDRD) Af Amer 84 Est GFR (MDRD) Non-Af 69 BUN/Creatinine Ratio 18.3 Glucose 323 H Calcium 8.5 POC Glucose 05/10/18 05/10/18 05/10/18 16:57 11:42 06:35 POC Glucose 329 H 357 H 332 H 05/09/18 20:28 POC Glucose 285 H Assessment/Plan All Active Problems Pneumonia due to Streptococcus pneumoniae (Acute) Acute pancreatitis (Resolved) 78-year-old with 1 week of acute illness on top of stable rheumatoid, stable NSI P now with green sputum production, brown sputum production hemoptysis and a response to antibiotics. The impression is early pneumonia, immune suppressed host, nonspecific interstitial pneumonitis with possible worsening The CT scan is reviewed at length, there is a comparison abdominal CT from May 2017 [id number] there is little difference in the disease process with the exception of increase in subpleural honeycombing. Although the patient is on 100% nonrebreather he is comfortable not tachypneic able to complete sentences and I suspect generally improving over the last 24 hours. There is no way to distinguish exacerbation of NSI P from early infection Recommendations: B TNP, review echo for evidence of significant left heart disease, continue Zosyn and Vanco, I would obtain sputum for Gram stain to look for evidence of fungal disease, I would shift Solu-Medrol to 500 mg once daily for 3 days, if there is any deterioration I would recommend an early blood gas. Early noninvasive ventilation as well. Patient is not DNR and is willing to proceed to intubation and subsequent transfer to [facility] if need be. The case is discussed with the attending on service Dr. Florencio Cortes
[2018-05-10 20:22] LABS: BNP,B-Type NATRIURETIC PEPTIDE 64.5 pg/mL (0-100)
[2018-05-10] MEDS: tiZANidine HCl 2 MG Tablet 4 MG PO (21:34)
[2018-05-10] MEDS: Atorvastatin Calcium 10 MG Tablet PO (21:35)
[2018-05-10] MEDS: Tamsulosin HCl 0.4 MG Capsule PO (21:38)
[2018-05-10 21:46] LABS: Bedside Glucose 339 mg/dL (70-110)
[2018-05-11] VITALS (12 sets, daily range): BP systolic 98–146; BP diastolic 53–93; PULSE 77–106; RESP 18–26; TEMP 36.3–36.6; O2SAT 95–100
[2018-05-11] MEDS: Ipratropium/Albuterol Sulfate 3 ML AMPUL.NEB INHALATION ×4 (01:44→18:50)
[2018-05-11] MEDS: Piperacil/Tazobactam 3.375 GM/50 ML ML IV (06:07)
[2018-05-11] MEDS: 0.9% NaCl Peripheral Flush Adult/Peds IV ×2 (06:08→21:17)
[2018-05-11] MEDS: Insulin Lispro 100 UNIT/ML INSULN.PEN SC ×4 (06:23→21:19)
[2018-05-11 06:31] LABS: Bedside Glucose 330 mg/dL (70-110)
[2018-05-11 06:46] LABS: Absolute Lymphocyte Count 0.38 X10^3/ul (0.83-4.51); Absolute Neutrophil Count 10.3 X10^3/uL (2.0-7.7); Hematocrit 33.2 % (40-54); Hemoglobin 10.8 g/dl (13.0-16.5); Lymphocyte # 0.38 X10^3/ul (4.0); Lymphocyte % 3.4 % (19-41); Mean Corp Hgb Conc 32.5 g/gl (32-36); Mean Corpuscular Hgb 30.5 pg (27.0-32.0); Mean Corpuscular Volume 93.8 fL (80-94); Mean Platelet Vol. 10.3 fl (6.2-12.0); Monocyte# 0.34 X10^3/uL; Monocyte% 3.1 % (0-10); Neutrophil # 10.33 X10^3/uL (2.7-7.7); Neutrophil % 93.3 % (47-70); Platelet Count 118 K/mm3 (150-450); RBC Distribution Width CV 14.4 % (11.6-14.6); RBC Distribution Width SD 47.1 fl (35.1-43.9); Red Blood Count 3.54 M/mm3 (4.6-6.2); White Blood Count 11.1 K/mm3 (4.4-11.0)
[2018-05-11 06:50] LABS: Differential Indicated SCAN CRITERIA MET; POSITIVE COUNT NO; POSITIVE DIFFERENTIAL YES; POSITIVE MORPHOLOGY NO
[2018-05-11] MEDS: Gabapentin 600 MG Tablet PO ×3 (06:55→21:18)
[2018-05-11 07:08] LABS: Vancomycin, Trough Level 12.4 ug/mL (5.0-15.0)
[2018-05-11 07:12] LABS: Differential Comment SCANNED
[2018-05-11 07:14] LABS: Anion Gap 11 (5-15); BUN 25 mg/dL (7-18); BUN/Creat Ratio 25.6 RATIO (10-20); Calcium,Total 8.3 mg/dL (8.5-10.1); Chloride 104 mmol/L (98-107); Creatinine, Serum 0.98 mg/dL (0.70-1.30); EST Glomerular Filtration Rate 79 mL/min (>60); Est Glom Filt Rate - Afr Amer 95 mL/min (>60); Estimated Creatinine Clearance 59.13 ml/min; Glucose 320 mg/dL (74-106); Potassium 4.9 mmol/L (3.5-5.1); Sodium Level 139 mmol/L (136-145)
[2018-05-11] MEDS: Aspirin 81 MG TAB.CHEW PO (09:09)
[2018-05-11] MEDS: Multivitamins,Ther W-Minerals Tablet 1 TABLET PO (09:10)
[2018-05-11] MEDS: Enoxaparin 40 MG/0.4 ML Syringe SC (09:11)
[2018-05-11] MEDS: Ascorbic Acid 500 MG Tablet PO (09:11)
[2018-05-11] MEDS: Magnesium Oxide 400 MG Tablet PO (09:12)
[2018-05-11] MEDS: Famotidine 20 MG Tablet PO ×2 (09:12→21:17)
[2018-05-11] MEDS: guaiFENesin 1,200 MG Tablet 1200 MG PO ×2 (09:12→21:17)
[2018-05-11] MEDS: Insulin Lispro 100 UNIT/ML INSULN.PEN 8 UNIT SQ ×3 (09:13→16:47)
[2018-05-11] MEDS: Lisinopril 10 MG Tablet PO (09:13)
[2018-05-11] MEDS: Sertraline 50 MG Tablet PO (09:13)
[2018-05-11 12:10] LABS: Bedside Glucose 341 mg/dL (70-110)
[2018-05-11] MEDS: Cefazolin 2 GM in 0.9% Normal Saline 100 ML IV ×2 (14:07→21:17)
[2018-05-11 16:55] LABS: Bedside Glucose 310 mg/dL (70-110)
--- NOTE | 2018-05-11 18:38 | PCM.PROGNOTE ---
Subjective: Patient seen and examined today, he is currently on a Ventimask at an FiO2 of 0.5, I talked with pulmonary medicine about his care today, they recommended that he continue to receive high-dose IV Solu-Medrol. - Physical Exam General: Alert, Oriented x3, Cooperative, No apparent distress, Well developed HEENT: Atraumatic, PERRLA, EOMI, Normocephalic Oral: Moist Mucosa Neck: Supple, Trachea Midline, Thyroid Normal Size and Texture Lungs: Normal air movement, No rhonchi, No wheeze, Rales - Inspiratory rales at the bases bilaterally Cardiovascular: Regular rate, Regular Rhythm, Normal S1, Normal S2, No murmurs, No Ectopic Activity, PMI Normal, No rub noted, No Gallop Abdomen: Bowel Sounds Present, Soft, Non Tender, Non-Distended Extremities: No clubbing, No cyanosis, No edema, Capillary Refill Less than 3 Seconds Skin: No rashes, No breakdown Musculoskeletal: No Tenderness to Palpation of Joints or Extremities Neurological: Cranial nerves II-XII grossly intact, Neuro grossly intact, Sensory exam intact to light touch and pain, Coordination normal Psych/Mental Status: Normal Affect, Appropriate, Alert and oriented to time, place, person, mood and affect Vital Signs Temp Pulse Resp BP Pulse Ox 97.9 F 105 H 20 H 145/93 H 95 05/11/18 14:34 05/11/18 14:34 05/11/18 14:34 05/11/18 14:34 05/11/18 14:34 Oxygen Flow Rate (L/min) 10 Oxygen Delivery Method Venturi Mask Weight: 108.908 kg Body Mass Index (BMI) 36.5 Intake and Output for Last 24 Hours 05/09/18 05/10/18 05/11/18 23:59 23:59 23:59 Intake Total 1340 / 1340 2418 / 2418 2425.2 / 2425.2 Output Total 2150 / 2150 1250 / 1250 Balance 1340 / 1340 268 / 268 1175.2 / 1175.2 Microbiology Past 72 Hours 05/08/18 22:22 Gram Stain - Final Sputum, Expectorated/Coughed Respiratory Culture - Final Staphylococcus aureus 05/08/18 14:00 Blood Culture - Preliminary Blood Culture (Wb) #2 - Anticubital Right No growth in 48 hours. 05/08/18 14:05 Blood Culture - Preliminary Blood Culture (Wb) - Right Wrist No growth in 48 hours. 05/08/18 18:46 Respiratory Panel (PCR) - Final Mucosa - Nose 05/08/18 22:50 Legionella Antigen - Final Urine, Clean Catch 05/08/18 22:50 Streptococcus pneumoniae Antigen (M - Final Urine, Clean Catch 05/08/18 15:21 Influenza Types A,B Direct FA (TANJA) - Final Mucosa - Nose Laboratory Tests Past 24 Hrs 05/10/18 05/11/18 05/11/18 19:25 06:24 06:24 WBC 11.1 H RBC 3.54 L Hgb 10.8 L Hct 33.2 L MCV 93.8 MCH 30.5 MCHC 32.5 RDW 14.4 RDW Differential 47.1 H Plt Count 118 L MPV 10.3 Immature Gran % (Auto) 0.200 Neut % (Auto) 93.3 H Lymph % (Auto) 3.4 L Roosevelt % (Auto) 3.1 Eos % (Auto) 0.0 Baso % (Auto) 0.0 Absolute Neuts (auto) 10.3 H Absolute Lymphs (auto) 0.38 L Total Counted Not Reportable Differential Comment SCANNED Sodium Potassium Chloride Carbon Dioxide Anion Gap BUN Creatinine Estim Creat Clear Calc Est GFR (MDRD) Af Amer Est GFR (MDRD) Non-Af BUN/Creatinine Ratio Glucose Calcium B-Natriuretic Peptide 64.5 Vancomycin Trough 12.4 05/11/18 06:24 WBC RBC Hgb Hct MCV MCH MCHC RDW RDW Differential Plt Count MPV Immature Gran % (Auto) Neut % (Auto) Lymph % (Auto) Roosevelt % (Auto) Eos % (Auto) Baso % (Auto) Absolute Neuts (auto) Absolute Lymphs (auto) Total Counted Differential Comment Sodium 139 Potassium 4.9 Chloride 104 Carbon Dioxide 24.0 Anion Gap 11 BUN 25 H Creatinine 0.98 Estim Creat Clear Calc 59.13 Est GFR (MDRD) Af Amer 95 Est GFR (MDRD) Non-Af 79 BUN/Creatinine Ratio 25.6 H Glucose 320 H Calcium 8.3 L B-Natriuretic Peptide Vancomycin Trough POC Glucose 05/11/18 05/11/18 05/11/18 16:43 12:08 06:20 POC Glucose 310 H 341 H 330 H 05/10/18 21:31 POC Glucose 339 H Medical Necessity - Tobacco Use Smoking Status: Former smoker Tobacco Use: Cigarettes Assessment/Plan All Active Problems Acute pancreatitis (Resolved) #1 community-acquired pneumonia-presumed to be bacterial, exact etiology unclear, sputum culture grew out methicillin sensitive staph but it is unclear whether this is a colonization or an actual pathogen, patient's antibiotic was changed to Rocephin today, continue aerosol treatments #2 nonspecific interstitial pneumonitis-I talked with pulmonary medicine today, they recommended continuing high-dose Solu-Medrol for a total of 3 days, patient will have another dose tomorrow #3 acute on chronic hypoxic respiratory failure-patient's oxygen will be titrated if possible #4 hypertension #5 type 2 diabetes-continue to cover the patient with insulin per protocol #6 coronary artery disease #7 obstructive sleep apnea Code Visit Inpatient E&M: [id number] Subs Hosp L2
--- NOTE | 2018-05-11 18:57 | CPS ---
decreased FiO2 to 40%
[2018-05-11] MEDS: tiZANidine HCl 2 MG Tablet 4 MG PO (21:17)
[2018-05-11] MEDS: Atorvastatin Calcium 10 MG Tablet PO (21:18)
[2018-05-11] MEDS: Tamsulosin HCl 0.4 MG Capsule PO (21:18)
[2018-05-12] VITALS (11 sets, daily range): BP systolic 134–153; BP diastolic 75–88; PULSE 77–99; RESP 18–28; TEMP 36.6–36.8; O2SAT 50–99
[2018-05-12 00:15] LABS: Bedside Glucose 326 mg/dL (70-110)
[2018-05-12] MEDS: Ipratropium/Albuterol Sulfate 3 ML AMPUL.NEB INHALATION ×4 (01:35→19:30)
[2018-05-12] MEDS: Cefazolin 2 GM in 0.9% Normal Saline 100 ML IV ×3 (05:52→21:54)
[2018-05-12] MEDS: Gabapentin 600 MG Tablet PO ×3 (05:52→21:54)
[2018-05-12 07:30] LABS: Bedside Glucose 225 mg/dL (70-110)
[2018-05-12] MEDS: Insulin Lispro 100 UNIT/ML INSULN.PEN SC ×4 (08:28→21:56)
[2018-05-12] MEDS: Insulin Lispro 100 UNIT/ML INSULN.PEN 8 UNIT SQ ×3 (08:29→16:59)
[2018-05-12] MEDS: Aspirin 81 MG TAB.CHEW PO (08:30)
[2018-05-12] MEDS: Enoxaparin 40 MG/0.4 ML Syringe SC (08:31)
[2018-05-12] MEDS: Ascorbic Acid 500 MG Tablet PO (08:31)
[2018-05-12] MEDS: Multivitamins,Ther W-Minerals Tablet 1 TABLET PO (08:31)
[2018-05-12] MEDS: Magnesium Oxide 400 MG Tablet PO (08:32)
[2018-05-12] MEDS: Famotidine 20 MG Tablet PO ×2 (08:32→21:54)
[2018-05-12] MEDS: guaiFENesin 1,200 MG Tablet 1200 MG PO ×2 (08:32→21:54)
[2018-05-12] MEDS: Lisinopril 10 MG Tablet PO (08:33)
[2018-05-12] MEDS: Sertraline 50 MG Tablet PO (08:33)
[2018-05-12] MEDS: 0.9% NaCl Peripheral Flush Adult/Peds IV (10:22)
--- NOTE | 2018-05-12 11:11 | PCM.PROGNOTE ---
Subjective: Patient was seen and examined today, he remains afebrile, unfortunately, he is not been able to be weaned from 50% oxygen. I spent some time talking with the patient today about his CODE STATUS, it was obvious after talking with him that he had not considered what to do if he wound up on mechanical ventilation and his opinion at this time is that if he would need to be on the vent he would consent to it. He seems to be in denial that he has a progressive lung disease, I reminded him of this fact, I also told him I would talk with his whitewater rafting guide tomorrow if his oxygen requirement was still 50%. I do not think it would be of any use transferring him to [facility]-I am not sure what they would do differently than what is already being done here. Patient's echocardiogram shows moderate pulmonary hypertension with a preserved EF. Additional note: I talked with him extensively about his home living situation, his is able to toilet herself and dress herself but she is primarily bedbound due to severe osteoarthritis of the knees and a sales and in home delivery specialist comes in to help her but does not provide 24-hour care. Patient will be unable to care for his himself if he remains on high flow oxygen. - Physical Exam General: Alert, Oriented x3, Cooperative, No apparent distress, Well developed HEENT: Atraumatic, PERRLA, EOMI, Normocephalic Oral: Moist Mucosa Neck: Supple, No Nuchal Rigidity, Trachea Midline, Thyroid Normal Size and Texture Lungs: Rales - Inspiratory rales are noted over both lung pepper Cardiovascular: Regular rate, Regular Rhythm, Normal S1, Normal S2, No murmurs, No Ectopic Activity, PMI Normal, No rub noted, No Gallop Abdomen: Bowel Sounds Present, Soft, Non Tender, Non-Distended, No hernias noted Extremities: No clubbing, No cyanosis, No edema, Capillary Refill Less than 3 Seconds Skin: No rashes, No breakdown Musculoskeletal: No Tenderness to Palpation of Joints or Extremities Neurological: Cranial nerves II-XII grossly intact, Neuro grossly intact, Sensory exam intact to light touch and pain, Coordination normal Psych/Mental Status: Normal Affect, Appropriate, Alert and oriented to time, place, person, mood and affect Vital Signs Temp Pulse Resp BP Pulse Ox 98.2 F 99 20 H 144/80 H 97 05/12/18 07:38 05/12/18 07:44 05/12/18 07:44 05/12/18 07:38 05/12/18 10:32 Oxygen Flow Rate (L/min) 13 Oxygen Delivery Method Venturi Mask Weight: 108.908 kg Body Mass Index (BMI) 36.5 Intake and Output for Last 24 Hours 05/10/18 05/11/18 05/12/18 23:59 23:59 23:59 Intake Total 2418 / 2418 2425.2 / 2425.2 1476 / 1476 Output Total 2150 / 2150 1250 / 1250 675 / 675 Balance 268 / 268 1175.2 / 1175.2 801 / 801 Microbiology Past 72 Hours 05/08/18 22:22 Gram Stain - Final Sputum, Expectorated/Coughed Respiratory Culture - Final Staphylococcus aureus 05/08/18 14:00 Blood Culture - Preliminary Blood Culture (Wb) #2 - Anticubital Right No growth in 48 hours. 05/08/18 14:05 Blood Culture - Preliminary Blood Culture (Wb) - Right Wrist No growth in 48 hours. 05/08/18 18:46 Respiratory Panel (PCR) - Final Mucosa - Nose POC Glucose 05/12/18 05/11/18 05/11/18 07:23 21:14 16:43 POC Glucose 225 H 326 H 310 H 05/11/18 12:08 POC Glucose 341 H Medical Necessity - Tobacco Use Smoking Status: Former smoker Tobacco Use: Cigarettes Assessment/Plan All Active Problems Acute pancreatitis (Resolved) #1 community-acquired pneumonia-presumed to be bacterial, exact etiology unclear, sputum culture grew out methicillin sensitive staph but it is unclear whether this is a colonization or an actual pathogen, continue IV Rocephin #2 nonspecific interstitial pneumonitis-patient will be changed to Solu-Medrol 40 mg IV every 8 hours starting tomorrow-patient was given Solu-Medrol 500 mg IV today #3 acute on chronic hypoxic respiratory failure-patient's oxygen will be titrated if possible #4 hypertension #5 type 2 diabetes-continue to cover the patient with insulin per protocol #6 coronary artery disease #7 obstructive sleep apnea #8 debility secondary to acute on chronic respiratory failure-PT and OT will continue to see the patient Code Visit Inpatient E&M: [id number] [facility] Hosp L2
--- NOTE | 2018-05-12 11:15 | PN_ITS ---
Subjective: Patient was seen and examined today, he remains afebrile, unfortunately, he is not been able to be weaned from 50% oxygen. I spent some time talking with the patient today about his CODE STATUS, it was obvious after talking with him that he had not considered what to do if he wound up on mechanical ventilation and his opinion at this time is that if he would need to be on the vent he would consent to it. He seems to be in denial that he has a progressive lung disease, I reminded him of this fact, I also told him I would talk with his home care music therapist tomorrow if his oxygen requirement was still 50%. I do not think it would be of any use transferring him to [facility]-I am not sure what they would do differently than what is already being done here. Patient's echocardiogram shows moderate pulmonary hypertension with a preserved EF. Additional note: I talked with him extensively about his home living situation, his is able to toilet herself and dress herself but she is primarily bedbound due to severe osteoarthritis of the knees and a home care manager comes in to help her but does not provide 24-hour care. Patient will be unable to care for his himself if he remains on high flow oxygen. - Physical Exam General: Alert, Oriented x3, Cooperative, No apparent distress, Well developed HEENT: Atraumatic, PERRLA, EOMI, Normocephalic Oral: Moist Mucosa Neck: Supple, No Nuchal Rigidity, Trachea Midline, Thyroid Normal Size and Texture Lungs: Rales - Inspiratory rales are noted over both lung pepper Cardiovascular: Regular rate, Regular Rhythm, Normal S1, Normal S2, No murmurs, No Ectopic Activity, PMI Normal, No rub noted, No Gallop Abdomen: Bowel Sounds Present, Soft, Non Tender, Non-Distended, No hernias noted Extremities: No clubbing, No cyanosis, No edema, Capillary Refill Less than 3 Seconds Skin: No rashes, No breakdown Musculoskeletal: No Tenderness to Palpation of Joints or Extremities Neurological: Cranial nerves II-XII grossly intact, Neuro grossly intact, Sensory exam intact to light touch and pain, Coordination normal Psych/Mental Status: Normal Affect, Appropriate, Alert and oriented to time, place, person, mood and affect Vital Signs Temp Pulse Resp BP Pulse Ox 98.2 F 99 20 H 144/80 H 97 05/12/18 07:38 05/12/18 07:44 05/12/18 07:44 05/12/18 07:38 05/12/18 10:32 Oxygen Flow Rate (L/min) 13 Oxygen Delivery Method Venturi Mask Weight: 108.908 kg Body Mass Index (BMI) 36.5 Intake and Output for Last 24 Hours 05/10/18 05/11/18 05/12/18 23:59 23:59 23:59 Intake Total 2418 / 2418 2425.2 / 2425.2 1476 / 1476 Output Total 2150 / 2150 1250 / 1250 675 / 675 Balance 268 / 268 1175.2 / 1175.2 801 / 801 Microbiology Past 72 Hours 05/08/18 22:22 Gram Stain - Final Sputum, Expectorated/Coughed Respiratory Culture - Final Staphylococcus aureus 05/08/18 14:00 Blood Culture - Preliminary Blood Culture (Wb) #2 - Anticubital Right No growth in 48 hours. 05/08/18 14:05 Blood Culture - Preliminary Blood Culture (Wb) - Right Wrist No growth in 48 hours. 05/08/18 18:46 Respiratory Panel (PCR) - Final Mucosa - Nose POC Glucose 05/12/18 05/11/18 05/11/18 07:23 21:14 16:43 POC Glucose 225 H 326 H 310 H 05/11/18 12:08 POC Glucose 341 H Medical Necessity - Tobacco Use Smoking Status: Former smoker Tobacco Use: Cigarettes Assessment/Plan All Active Problems Acute pancreatitis (Resolved) #1 community-acquired pneumonia-presumed to be bacterial, exact etiology unclear, sputum culture grew out methicillin sensitive staph but it is unclear whether this is a colonization or an actual pathogen, continue IV Rocephin #2 nonspecific interstitial pneumonitis-patient will be changed to Solu-Medrol 40 mg IV every 8 hours starting tomorrow-patient was given Solu-Medrol 500 mg IV today #3 acute on chronic hypoxic respiratory failure-patient's oxygen will be titrated if possible #4 hypertension #5 type 2 diabetes-continue to cover the patient with insulin per protocol #6 coronary artery disease #7 obstructive sleep apnea #8 debility secondary to acute on chronic respiratory failure-PT and OT will continue to see the patient Code Visit Inpatient E&M: [id number] [facility] Hosp L2
[2018-05-12 12:31] LABS: Bedside Glucose 222 mg/dL (70-110)
[2018-05-12] MEDS: Furosemide 40 MG/4 ML Vial IV (12:51)
[2018-05-12 17:06] LABS: Bedside Glucose 338 mg/dL (70-110)
[2018-05-12] MEDS: Tamsulosin HCl 0.4 MG Capsule PO (21:54)
[2018-05-12] MEDS: Atorvastatin Calcium 10 MG Tablet PO (21:55)
[2018-05-12] MEDS: tiZANidine HCl 2 MG Tablet 4 MG PO (21:55)
[2018-05-13] VITALS (13 sets, daily range): BP systolic 118–162; BP diastolic 60–83; PULSE 76–98; RESP 16–28; TEMP 36.4–36.7; O2SAT 50–98
[2018-05-13] MEDS: Ipratropium/Albuterol Sulfate 3 ML AMPUL.NEB INHALATION ×4 (00:15→19:05)
[2018-05-13 00:46] LABS: Bedside Glucose 286 mg/dL (70-110)
[2018-05-13] MEDS: Cefazolin 2 GM in 0.9% Normal Saline 100 ML IV ×3 (05:28→22:55)
[2018-05-13] MEDS: Gabapentin 600 MG Tablet PO ×3 (05:28→22:48)
[2018-05-13] MEDS: 0.9% NaCl Peripheral Flush Adult/Peds IV (06:42)
[2018-05-13 08:10] LABS: Bedside Glucose 207 mg/dL (70-110)
[2018-05-13] MEDS: Insulin Lispro 100 UNIT/ML INSULN.PEN 8 UNIT SQ ×3 (08:31→18:29)
[2018-05-13] MEDS: Insulin Lispro 100 UNIT/ML INSULN.PEN SC ×4 (08:31→22:51)
[2018-05-13] MEDS: Multivitamins,Ther W-Minerals Tablet 1 TABLET PO (08:32)
[2018-05-13] MEDS: Aspirin 81 MG TAB.CHEW PO (08:32)
[2018-05-13] MEDS: Ascorbic Acid 500 MG Tablet PO (08:33)
--- NOTE | 2018-05-13 09:09 | PN_ITS ---
- Physical Exam General: Alert, Oriented x3, Cooperative HEENT: Atraumatic, EOMI, Normocephalic Neck: Supple, No JVD, Negative Carotid Bruits Lungs: - - Bibasilar fine rales two th[address] the way up the chest, some increased work of breathing, no wheeze, cough with brownish blood-tinged sputum no wheeze Cardiovascular: Regular rate, No murmurs, Tachycardic Abdomen: Bowel Sounds Present, Soft, Non Tender Extremities: No edema, Capillary Refill Less than 3 Seconds Skin: No rashes, No breakdown Musculoskeletal: No Tenderness to Palpation of Joints or Extremities Neurological: Cranial nerves II-XII grossly intact Psych/Mental Status: Normal Affect, Appropriate Vital Signs Temp Pulse Resp BP Pulse Ox 97.6 F L 76 26 H 118/60 92 05/13/18 02:15 05/13/18 06:49 05/13/18 06:49 05/13/18 02:15 05/13/18 07:06 Oxygen Flow Rate (L/min) 12 Oxygen Delivery Method Venturi Mask Weight: 108.908 kg Body Mass Index (BMI) 36.5 Intake and Output for Last 24 Hours 05/11/18 05/12/18 05/13/18 23:59 23:59 23:59 Intake Total 2425.2 / 2425.2 3380 / 3380 293.6 / 293.6 Output Total 1250 / 1250 3475 / 3475 600 / 600 Balance 1175.2 / 1175.2 -95 / -95 -306.4 / -306.4 Microbiology Past 72 Hours 05/08/18 22:22 Gram Stain - Final Sputum, Expectorated/Coughed Respiratory Culture - Final Staphylococcus aureus 05/08/18 14:00 Blood Culture - Preliminary Blood Culture (Wb) #2 - Anticubital Right No growth in 48 hours. 05/08/18 14:05 Blood Culture - Preliminary Blood Culture (Wb) - Right Wrist No growth in 48 hours. POC Glucose 05/13/18 05/12/18 05/12/18 08:04 21:50 16:50 POC Glucose 207 H 286 H 338 H 05/12/18 12:16 POC Glucose 222 H Medical Necessity - Tobacco Use Smoking Status: Former smoker Tobacco Use: Cigarettes Assessment/Plan All Active Problems Acute pancreatitis (Resolved) 78-year-old gentleman with staph aureus pneumonia nonspecific interstitial pneumonitis, 3 days of high pulse steroids with minimal improvement. I am recommending repeating a sputum culture and Gram stain, fungal disease is still in the differential Agree with paring down the antibiotics There has been little progress although the patient is on slightly less oxygen he is not significantly less short of breath with any movement The patient is in agreement with mechanical ventilation if need be At this point a second immunomodulatory agent may be warranted The case will be discussed with the physicians at [facility] Case is discussed with the attending physician
[2018-05-13] MEDS: Enoxaparin 40 MG/0.4 ML Syringe SC (11:06)
[2018-05-13] MEDS: Famotidine 20 MG Tablet PO ×2 (11:06→22:48)
[2018-05-13] MEDS: Magnesium Oxide 400 MG Tablet PO (11:06)
[2018-05-13] MEDS: Sertraline 50 MG Tablet PO (11:07)
[2018-05-13] MEDS: Lisinopril 10 MG Tablet PO (11:07)
[2018-05-13] MEDS: guaiFENesin 1,200 MG Tablet 1200 MG PO ×2 (11:07→22:48)
[2018-05-13 12:15] LABS: Bedside Glucose 261 mg/dL (70-110)
[2018-05-13 16:51] LABS: Bedside Glucose 262 mg/dL (70-110)
--- NOTE | 2018-05-13 19:58 | PCM.PROGNOTE ---
Subjective: Patient seen and examined today, I briefly talked with pulmonary medicine about his care. Patient is still on the same oxygen concentration which is 50%. Patient states he did walk with physical therapy today. - Physical Exam General: Alert, Oriented x3, Cooperative, No apparent distress, Well developed, Well nourished HEENT: Atraumatic, PERRLA, EOMI, Normocephalic Oral: Moist Mucosa Neck: Supple, No Nuchal Rigidity, Trachea Midline, Thyroid Normal Size and Texture Lungs: Rales - Inspiratory rales over all lung pepper bilaterally Cardiovascular: Regular rate, Regular Rhythm, Normal S1, Normal S2, No murmurs, No Ectopic Activity Abdomen: Bowel Sounds Present, Soft, Non Tender, Non-Distended, No hernias noted Extremities: No clubbing, No cyanosis, No edema, Capillary Refill Less than 3 Seconds Skin: No rashes, No breakdown Neurological: Cranial nerves II-XII grossly intact, Neuro grossly intact, Sensory exam intact to light touch and pain, Coordination normal Psych/Mental Status: Normal Affect, Appropriate, Alert and oriented to time, place, person, mood and affect Vital Signs Temp Pulse Resp BP Pulse Ox 98.1 F 98 20 H 133/83 H 95 05/13/18 14:00 05/13/18 15:00 05/13/18 15:00 05/13/18 14:00 05/13/18 15:00 Oxygen Flow Rate (L/min) 12 Oxygen Delivery Method Venturi Mask Weight: 108.908 kg Body Mass Index (BMI) 36.5 Intake and Output for Last 24 Hours 05/11/18 05/12/18 05/13/18 23:59 23:59 23:59 Intake Total 2425.2 / 2425.2 3380 / 3380 293.6 / 293.6 Output Total 1250 / 1250 3475 / 3475 600 / 600 Balance 1175.2 / 1175.2 -95 / -95 -306.4 / -306.4 Microbiology Past 72 Hours 05/08/18 14:00 Blood Culture - Final Blood Culture (Wb) #2 - Anticubital Right No growth in 5 days. 05/08/18 14:05 Blood Culture - Final Blood Culture (Wb) - Right Wrist No growth in 5 days. 05/08/18 22:22 Gram Stain - Final Sputum, Expectorated/Coughed Respiratory Culture - Final Staphylococcus aureus POC Glucose 05/13/18 05/13/18 05/13/18 16:47 11:02 08:04 POC Glucose 262 H 261 H 207 H 05/12/18 21:50 POC Glucose 286 H Medical Necessity - Tobacco Use Smoking Status: Former smoker Tobacco Use: Cigarettes Assessment/Plan All Active Problems Acute pancreatitis (Resolved) #1 community-acquired pneumonia-presumed to be bacterial, exact etiology unclear, sputum culture grew out methicillin sensitive staph but it is unclear whether this is a colonization or an actual pathogen, continue IV Rocephin, patient is still requiring 50% oxygen #2 nonspecific interstitial pneumonitis-patient will continue IV Solu-Medrol #3 acute on chronic hypoxic respiratory failure-patient's oxygen will be titrated if possible #4 hypertension #5 type 2 diabetes-continue to cover the patient with insulin per protocol #6 coronary artery disease #7 obstructive sleep apnea #8 debility secondary to acute on chronic respiratory failure-PT and OT will continue to see the patient Code Visit Inpatient E&M: 60054 Subs Hosp L2
[2018-05-13] MEDS: Atorvastatin Calcium 10 MG Tablet PO (22:48)
[2018-05-13] MEDS: Tamsulosin HCl 0.4 MG Capsule PO (22:49)
[2018-05-13] MEDS: tiZANidine HCl 2 MG Tablet 4 MG PO (22:49)
[2018-05-13] MEDS: Fluticasone 0.05% 1 SPRAY NASAL.SRY 2 SPRAY NASAL (23:00)
[2018-05-13] MEDS: Phenol/Sodium Phenolate 180ML 1 SPRAY MM (23:00)
[2018-05-13 23:21] LABS: Bedside Glucose 311 mg/dL (70-110)
[2018-05-14] VITALS (15 sets, daily range): BP systolic 125–151; BP diastolic 78–101; PULSE 65–93; RESP 18–26; TEMP 36.6–36.8; O2SAT 88–100
[2018-05-14] MEDS: Ipratropium/Albuterol Sulfate 3 ML AMPUL.NEB INHALATION ×4 (00:23→19:15)
[2018-05-14] MEDS: Cefazolin 2 GM in 0.9% Normal Saline 100 ML IV ×2 (06:45→14:36)
[2018-05-14] MEDS: Gabapentin 600 MG Tablet PO ×3 (06:46→21:08)
[2018-05-14] MEDS: Insulin Lispro 100 UNIT/ML INSULN.PEN SC ×4 (06:51→21:22)
[2018-05-14 07:26] LABS: Bedside Glucose 215 mg/dL (70-110)
[2018-05-14] MEDS: Aspirin 81 MG TAB.CHEW PO (08:30)
[2018-05-14] MEDS: Sertraline 50 MG Tablet PO (08:30)
[2018-05-14] MEDS: Lisinopril 10 MG Tablet PO (08:30)
[2018-05-14] MEDS: Famotidine 20 MG Tablet PO ×2 (08:31→21:09)
[2018-05-14] MEDS: Magnesium Oxide 400 MG Tablet PO (08:31)
[2018-05-14] MEDS: Ascorbic Acid 500 MG Tablet PO (08:33)
[2018-05-14] MEDS: Multivitamins,Ther W-Minerals Tablet 1 TABLET PO (08:33)
[2018-05-14] MEDS: Insulin Lispro 100 UNIT/ML INSULN.PEN 8 UNIT SQ ×3 (08:33→16:57)
[2018-05-14] MEDS: Enoxaparin 40 MG/0.4 ML Syringe SC (08:34)
[2018-05-14] MEDS: guaiFENesin 1,200 MG Tablet 1200 MG PO ×2 (08:34→21:08)
--- NOTE | 2018-05-14 11:09 | NURSING ---
Addendum entered by Talisha Gómez 05/14/18 11:17: 94% 6lnc at rest and 93% 10ml at ambulation per CPS. Original Note: aware per CPS with special high flow O2 tubing will need 6lnc at rest and 10lnc with activity. case monitor notified.
--- NOTE | 2018-05-14 11:48 | CPS ---
pt's Sats on 6lpm at rest=94%, walked pt in [place] about about 800 feet w/O2, needed 10lpm w/high flow nasal cannula to keep Sat's around 92%. Room air w/o O2=79%.
[2018-05-14 11:51] LABS: Bedside Glucose 355 mg/dL (70-110)
--- NOTE | 2018-05-14 14:00 | CASEMGMT ---
RN MITZI called Zaynab at [facility] to inquire about oxygen flow rates and need for 6-10 lpm. Script received for home oxygen and referral made to [facility] to arrange for higher flow home oxygen. Discharge planned for tomorrow. CRESCENCIO CARTAGENA will continue to follow this patient and plan for a safe discharge.
[2018-05-14] MEDS: 0.9% NaCl Peripheral Flush Adult/Peds IV (14:36)
[2018-05-14 17:06] LABS: Bedside Glucose 243 mg/dL (70-110)
--- NOTE | 2018-05-14 19:03 | PCM.PROGNOTE ---
Subjective: Patient was seen and examined today, he has been able to tolerate nasal cannula O2 at a high flow rate, we are going to set the patient up for home O2 with a heavy-duty concentrator to compensate for this high liter flow. Patient states that he has walked today with physical therapy. Patient states that he feels as though the aerosol treatments he is receiving has helped him, he requests an aerosol machine at home. - Physical Exam General: Alert, Oriented x3, Cooperative, No apparent distress, Well developed, Well nourished HEENT: Atraumatic, PERRLA, EOMI, Normocephalic Oral: Moist Mucosa Neck: Supple, No Nuchal Rigidity, Trachea Midline, Thyroid Normal Size and Texture Lungs: Rales - Scattered inspiratory rales bilaterally Cardiovascular: Regular rate, Regular Rhythm, Normal S1, Normal S2, No murmurs Abdomen: Bowel Sounds Present, Soft, Non Tender Extremities: No clubbing, No cyanosis, No edema, Capillary Refill Less than 3 Seconds Skin: No rashes, No breakdown Musculoskeletal: No Tenderness to Palpation of Joints or Extremities Neurological: Cranial nerves II-XII grossly intact, Neuro grossly intact, Sensory exam intact to light touch and pain, Coordination normal Psych/Mental Status: Normal Affect, Appropriate, Alert and oriented to time, place, person, mood and affect Vital Signs Temp Pulse Resp BP Pulse Ox 97.9 F 93 18 142/78 H 96 05/14/18 14:39 05/14/18 14:39 05/14/18 14:39 05/14/18 14:39 05/14/18 14:39 Oxygen Flow Rate (L/min) [ 10 AMBULATION with Oxygen] Oxygen Flow Rate (L/min) 6 Oxygen Delivery Method Nasal Cannula Weight: 108.908 kg Body Mass Index (BMI) 36.5 Intake and Output for Last 24 Hours 05/12/18 05/13/18 05/14/18 23:59 23:59 23:59 Intake Total 3380 / 3380 293.6 / 293.6 2126 / 2126 Output Total 3475 / 3475 600 / 600 875 / 875 Balance -95 / -95 -306.4 / -306.4 1251 / 1251 Microbiology Past 72 Hours 05/13/18 09:15 Gram Stain - Final Sputum, Expectorated/Coughed Respiratory Culture - Preliminary Gram negative stacy 05/08/18 14:00 Blood Culture - Final Blood Culture (Wb) #2 - Anticubital Right No growth in 5 days. 05/08/18 14:05 Blood Culture - Final Blood Culture (Wb) - Right Wrist No growth in 5 days. POC Glucose 05/14/18 05/14/18 05/14/18 16:53 11:29 06:47 POC Glucose 243 H 355 H 215 H 05/13/18 22:47 POC Glucose 311 H Medical Necessity - Tobacco Use Smoking Status: Former smoker Tobacco Use: Cigarettes Assessment/Plan All Active Problems Acute pancreatitis (Resolved) #1 community-acquired pneumonia-presumed to be bacterial, exact etiology unclear, sputum culture grew out methicillin sensitive staph but it is unclear whether this is a colonization or an actual pathogen, I will switch him to oral antibiotics tomorrow, nasal cannula oxygen will be set up at home, he will be set up for an aerosol machine at home #2 nonspecific interstitial pneumonitis-I discussed his care with pulmonology today, they stated that the patient can be transitioned over to oral prednisone, we will start this tomorrow #3 acute on chronic hypoxic respiratory failure-patient will be set up with a high oxygen flow concentrator #4 hypertension #5 type 2 diabetes-continue to cover the patient with insulin per protocol #6 coronary artery disease #7 obstructive sleep apnea #8 debility secondary to acute on chronic respiratory failure-PT and OT will continue to see the patient Code Visit Inpatient E&M: 11229 Subs Hosp L2
[2018-05-14] MEDS: tiZANidine HCl 2 MG Tablet 4 MG PO (21:08)
[2018-05-14] MEDS: Tamsulosin HCl 0.4 MG Capsule PO (21:08)
[2018-05-14] MEDS: Atorvastatin Calcium 10 MG Tablet PO (21:08)
[2018-05-14] MEDS: Cefadroxil 500 MG CAPSULE 1000 MG PO (21:16)
[2018-05-14 22:25] LABS: Bedside Glucose 289 mg/dL (70-110)
[2018-05-15] VITALS (12 sets, daily range): BP systolic 119–140; BP diastolic 67–73; PULSE 60–103; RESP 16–24; TEMP 36.4–36.7; O2SAT 92–100
[2018-05-15] MEDS: Ipratropium/Albuterol Sulfate 3 ML AMPUL.NEB INHALATION ×3 (00:27→12:48)
[2018-05-15] MEDS: Gabapentin 600 MG Tablet PO (06:40)
[2018-05-15] MEDS: Insulin Lispro 100 UNIT/ML INSULN.PEN SC ×2 (06:40→11:15)
[2018-05-15 07:05] LABS: Bedside Glucose 162 mg/dL (70-110)
--- NOTE | 2018-05-15 08:05 | PCM.PROGNOTE ---
- Physical Exam General: Alert, Oriented x3, Cooperative HEENT: Atraumatic, EOMI, Normocephalic, - - Mucous membranes dry Neck: Supple, No JVD, Negative Carotid Bruits Lungs: - - Fine rales bibasilar 50%, no cough Cardiovascular: Regular rate, No murmurs Abdomen: Bowel Sounds Present, Soft, Non Tender Extremities: Capillary Refill Less than 3 Seconds, - - 1+ pitting edema Skin: No rashes, No breakdown Musculoskeletal: No Tenderness to Palpation of Joints or Extremities Neurological: Cranial nerves II-XII grossly intact Psych/Mental Status: Normal Affect, Appropriate Vital Signs Temp Pulse Resp BP Pulse Ox 97.6 F L 78 20 H 119/67 95 05/15/18 02:42 05/15/18 06:45 05/15/18 06:45 05/15/18 02:42 05/15/18 06:45 Oxygen Flow Rate (L/min) [ 10 AMBULATION with Oxygen] Oxygen Flow Rate (L/min) 6 Oxygen Delivery Method Nasal Cannula Weight: 108.908 kg Body Mass Index (BMI) 36.5 Intake and Output for Last 24 Hours 05/13/18 05/14/18 05/15/18 23:59 23:59 23:59 Intake Total 293.6 / 293.6 2126 / 2126 650 / 650 Output Total 600 / 600 875 / 875 750 / 750 Balance -306.4 / -306.4 1251 / 1251 -100 / -100 Microbiology Past 72 Hours 05/13/18 09:15 Gram Stain - Final Sputum, Expectorated/Coughed Respiratory Culture - Final Enterobacter cloacae complex 05/08/18 14:00 Blood Culture - Final Blood Culture (Wb) #2 - Anticubital Right No growth in 5 days. 05/08/18 14:05 Blood Culture - Final Blood Culture (Wb) - Right Wrist No growth in 5 days. POC Glucose 05/15/18 05/14/18 05/14/18 06:36 21:06 16:53 POC Glucose 162 H 289 H 243 H 05/14/18 11:29 POC Glucose 355 H Medical Necessity - Tobacco Use Smoking Status: Former smoker Tobacco Use: Cigarettes Assessment/Plan All Active Problems Acute pancreatitis (Resolved) 78-year-old with rheumatoid arthritis, nonspecific interstitial pneumonitis, staph pneumonia, responding to steroids and staph coverage with improved oxygenation and gradual improvement in appetite, ability to ambulate I am recommending a shift prednisone 40 mg a day please supply the patient with at least 30 days of medication I will have the patient follow-up in 2 weeks at the office I recommend resuming Imuran at prior dosing On discharge I am recommending completing a course of antibiotics for staph aureus Consider a longer 10 or 12-day course given the tenuous nature of his condition and his immune suppression High flow O2 will need to be arranged Home care will need to be arranged Thank you for allowing me to assist
[2018-05-15] MEDS: Insulin Lispro 100 UNIT/ML INSULN.PEN 8 UNIT SQ ×2 (08:19→11:15)
[2018-05-15] MEDS: Aspirin 81 MG TAB.CHEW PO (08:19)
[2018-05-15] MEDS: Lisinopril 10 MG Tablet PO (08:20)
[2018-05-15] MEDS: Ascorbic Acid 500 MG Tablet PO (08:20)
[2018-05-15] MEDS: guaiFENesin 1,200 MG Tablet 1200 MG PO (08:20)
[2018-05-15] MEDS: Famotidine 20 MG Tablet PO (08:20)
[2018-05-15] MEDS: Sertraline 50 MG Tablet PO (08:20)
[2018-05-15] MEDS: Enoxaparin 40 MG/0.4 ML Syringe SC (08:21)
[2018-05-15] MEDS: Magnesium Oxide 400 MG Tablet PO (08:21)
[2018-05-15] MEDS: Multivitamins,Ther W-Minerals Tablet 1 TABLET PO (08:22)
[2018-05-15] MEDS: predniSONE 20 MG Tablet 40 MG PO (08:22)
[2018-05-15] MEDS: Cefadroxil 500 MG CAPSULE 1000 MG PO (08:23)
--- NOTE | 2018-05-15 09:37 | NURSING ---
Home oxygen Qualification. Pt 02 @RA 78%, 4L@ rest 84%, 6L@rest 92%, 6L with ambulation 86%, 10L with ambulation 92%.
[2018-05-15 11:21] LABS: Bedside Glucose 228 mg/dL (70-110)
--- NOTE | 2018-05-15 11:43 | PCM.DC ---
You will use the following diet at home:: Calorie/Carbohydrate Controlled (specify 1200, 1400, etc) - 1800 taiwo Your food should be the consistency of: Regular Your liquids should be the consistency of: Regular/Thin Discharge Activity: Return to Normal Activity Weight Bearing Status: Weight bearing as tolerated, - - with walker Allergies/Adverse Reactions: Allergies No Known Allergies Allergy (Verified 06/27/17 00:39) Medications to take at Discharge Alfuzosin HCl [Uroxatral] 10 mg PO QHS 11/09/13 Atorvastatin Calcium [Lipitor] 10 mg PO QHS 11/09/13 Flaxseed Oil/[place] 3,6,9 [Sv Flaxseed Oil 1,300 mg Sftgl] 1 cap PO DAILY 11/09/13 Mometasone Furoate [Nasonex] 2 spray NASAL DAILY PRN PRN 11/09/13 Potassium Chloride [K-Dur] 20 meq PO BID 11/09/13 Tizanidine HCl [Zanaflex] 2 - 4 mg PO QHS 11/09/13 Vitamin B Complex 1 cap PO DAILY 11/09/13 Glucosamine Sulf/Chondroitin A [Glucosamine-Chondroitin Cap] 1 each PO BID 10/27/14 Ranitidine [Zantac] 150 mg PO BID 06/27/17 Sertraline HCl [Zoloft] 50 mg PO DAILY #30 tab 07/02/17 Ascorbic Acid 500 mg PO DAILY 05/08/18 Aspirin E.C. [Ecotrin] 81 mg PO DAILY@0800 05/08/18 Azathioprine 100 mg PO DAILY 05/08/18 Benazepril HCl [Lotensin] 10 mg PO DAILY 05/08/18 Gabapentin [Neurontin] 600 mg PO TID 05/08/18 Insulin Detemir [Levemir FlexPen] 24 units SC QHS 05/08/18 Insulin Lispro [Humalog KwikPen] 6 units SQ TID 05/08/18 Magnesium Oxide [Magnesium] 1,000 mg PO BID 05/08/18 Multivit-Min/FA/Lycopen/Lutein [Centrum Silver Men Tablet] 1 tab PO DAILY 05/08/18 Aspirin [Aspirin, Baby] 81 mg PO DAILY@0800 tab.chew 05/15/18 Cefadroxil [Duricef] 1,000 mg PO BID #20 capsule 05/15/18 Guaifenesin [Mucinex] 1,200 mg PO BID #60 tablet 05/15/18 Ipratropium/Albuterol Sulfate [Duoneb] 3 ml INHALATION Q6H.RT #120 ampul.neb 05/15/18 Lisinopril [Zestril] 10 mg PO DAILY #30 tablet 05/15/18 Prednisone [Deltasone] 20 mg PO BID #60 tablet 05/15/18 The following prescriptions were given: Ipratropium/Albuterol Sulfate [Duoneb] 3 ml INHALATION Q6H.RT #120 ampul.neb Lisinopril [Zestril] 10 mg PO DAILY #30 tablet Cefadroxil [Duricef] 1,000 mg PO BID #20 capsule Guaifenesin [Mucinex] 1,200 mg PO BID #60 tablet Prednisone [Deltasone] 20 mg PO BID #60 tablet Primary Care Physician: Caitlyn Allison MD [STAFF PHYSICIAN] - Please follow up with your Primary Care Physician in: in 2 weeks Test Results: Test results from this visit will be discussed in further detail at your follow-up appointment, if applicable. Please Follow Up With: Roland Pressley MD When: next week
--- NOTE | 2018-05-15 11:46 | DCINST_ITS ---
You will use the following diet at home:: Calorie/Carbohydrate Controlled (specify 1200, 1400, etc) - 1800 taiwo Your food should be the consistency of: Regular Your liquids should be the consistency of: Regular/Thin Discharge Activity: Return to Normal Activity Weight Bearing Status: Weight bearing as tolerated, - - with walker Allergies/Adverse Reactions: Allergies No Known Allergies Allergy (Verified 06/27/17 00:39) Medications to take at Discharge Alfuzosin HCl [Uroxatral] 10 mg PO QHS 11/09/13 Atorvastatin Calcium [Lipitor] 10 mg PO QHS 11/09/13 Flaxseed Oil/[place] 3,6,9 [Sv Flaxseed Oil 1,300 mg Sftgl] 1 cap PO DAILY 11/09/13 Mometasone Furoate [Nasonex] 2 spray NASAL DAILY PRN PRN 11/09/13 Potassium Chloride [K-Dur] 20 meq PO BID 11/09/13 Tizanidine HCl [Zanaflex] 2 - 4 mg PO QHS 11/09/13 Vitamin B Complex 1 cap PO DAILY 11/09/13 Glucosamine Sulf/Chondroitin A [Glucosamine-Chondroitin Cap] 1 each PO BID 10/27/14 Ranitidine [Zantac] 150 mg PO BID 06/27/17 Sertraline HCl [Zoloft] 50 mg PO DAILY #30 tab 07/02/17 Ascorbic Acid 500 mg PO DAILY 05/08/18 Aspirin E.C. [Ecotrin] 81 mg PO DAILY@0800 05/08/18 Azathioprine 100 mg PO DAILY 05/08/18 Benazepril HCl [Lotensin] 10 mg PO DAILY 05/08/18 Gabapentin [Neurontin] 600 mg PO TID 05/08/18 Insulin Detemir [Levemir FlexPen] 24 units SC QHS 05/08/18 Insulin Lispro [Humalog KwikPen] 6 units SQ TID 05/08/18 Magnesium Oxide [Magnesium] 1,000 mg PO BID 05/08/18 Multivit-Min/FA/Lycopen/Lutein [Centrum Silver Men Tablet] 1 tab PO DAILY 05/08/18 Aspirin [Aspirin, Baby] 81 mg PO DAILY@0800 tab.chew 05/15/18 Cefadroxil [Duricef] 1,000 mg PO BID #20 capsule 05/15/18 Guaifenesin [Mucinex] 1,200 mg PO BID #60 tablet 05/15/18 Ipratropium/Albuterol Sulfate [Duoneb] 3 ml INHALATION Q6H.RT #120 ampul.neb 05/15/18 Lisinopril [Zestril] 10 mg PO DAILY #30 tablet 05/15/18 Prednisone [Deltasone] 20 mg PO BID #60 tablet 05/15/18 The following prescriptions were given: Ipratropium/Albuterol Sulfate [Duoneb] 3 ml INHALATION Q6H.RT #120 ampul.neb Lisinopril [Zestril] 10 mg PO DAILY #30 tablet Cefadroxil [Duricef] 1,000 mg PO BID #20 capsule Guaifenesin [Mucinex] 1,200 mg PO BID #60 tablet Prednisone [Deltasone] 20 mg PO BID #60 tablet Primary Care Physician: Caitlyn Allison MD [STAFF PHYSICIAN] - Please follow up with your Primary Care Physician in: in 2 weeks Test Results: Test results from this visit will be discussed in further detail at your follow- up appointment, if applicable. Please Follow Up With: Roland Pressley MD When: next week
--- NOTE | 2018-05-17 09:07 | DS.PCM_ITS ---
Discharge Date and Diagnosis Date of Admission: 05/08/18 Date of Discharge: 05/15/18 - Primary Discharge Diagnosis #1 community-acquired pneumonia-methicillin sensitive staph aureus #2 nonspecific interstitial pneumonitis #3 acute on chronic hypoxic respiratory failure #4 hypertension #5 type 2 diabetes #6 coronary artery disease #7 obstructive sleep apnea #8 debility secondary to acute on chronic respiratory failure - Secondary Discharge Diagnosis Chronic Problems Obstructive sleep apnea of adult (Chronic) Pulmonary fibrosis (Chronic) Chronic respiratory failure (Chronic) Diabetic neuropathy (Chronic) Hypertension (Chronic) Gastro-esophageal reflux (Chronic) Hyperlipidemia (Chronic) Type 2 diabetes mellitus (Chronic) Hypogonadism male (Chronic) Coronary artery arteriosclerosis (Chronic) Hospital Course and Treatment Operations: None Procedures: None Summary of Care Provided: The patient is a 78 year old M was seen in the emergency room at [facility] with chief complaint of shortness of breath, he is on chronic oxygen at home and has a history of chronic pulmonary issues. Patient had complained of cough productive of nunez and bobby sputum without blood. Chest x- ray was obtained in the emergency room, radiology read the chest x-ray is possibly indicating CHF, but patient had marked pulmonary fibrosis and the chest x-ray was felt to be chronic disease. There was believed to be a possible left lower lobe infiltrate however as read out by the emergency room physician. Lactate was 2.2, CBC did not show an elevated white blood cell count, influenza test was negative. Patient was felt to have community-acquired pneumonia, given IV antibiotics, and aerosol treatments were instituted and the patient was seen by pulmonary medicine. Patient was placed on dose corticosteroids for 3 days at the direction of pulmonary medicine, he required 50% O2 Via Ventimask and he was unable to be weaned from this oxygen setting. Patient was kept on IV antibiotics, sputum culture grew out methicillin sensitive staph aureus. He was seen by PT and OT, On 05/15/18, patient was seen and examined: On examination he appeared in good health and spirits. Vital signs as documented. Skin warm and dry and without overt rashes. Neck without JVD. Lungs-diffuse scattered inspiratory rales were noted bilaterally, no expiratory wheezes were noted, there are no rhonchi noted. Heart exam notable for regular rhythm, normal sounds and absence of murmurs, rubs or gallops. Abdomen unremarkable and without evidence of organomegaly, masses, or abdominal aortic enlargement. Extremities nonedematous. Neuro: Cranial nerves II through XII are grossly intact, no focal motor deficits were noted. Psych: Patient was alert and oriented x3, he was appropriate, he was not anxious or depressed. Patient was set up for a high flow oxygen concentrator at home due to his high flow rate of 6 L at rest and 10 L when ambulating. Overall prognosis was poor due to the patient's progressive lung disease. On 05/15/18, patient was seen and examined and discharged in stable condition to home - Physical Exam Vital Signs Temp Pulse Resp BP Pulse Ox 97.8 F 95 16 129/70 H 97 05/15/18 13:13 05/15/18 13:15 05/15/18 13:15 05/15/18 13:13 05/15/18 13:13 Oxygen Flow Rate (L/min) [ 10 AMBULATION with Oxygen] Oxygen Flow Rate (L/min) 6 Oxygen Delivery Method Nasal Cannula Weight: 108.908 kg Body Mass Index (BMI) 36.5 Intake and Output for Last 24 Hours 05/15/18 05/16/18 05/17/18 23:59 23:59 23:59 Intake Total 1200 / 1200 Output Total 750 / 750 Balance 450 / 450 Microbiology Past 72 Hours 05/13/18 09:15 Gram Stain - Final Sputum, Expectorated/Coughed Respiratory Culture - Final Enterobacter cloacae complex Discharge Activity: Return to Normal Activity Weight Bearing Status: Weight bearing as tolerated, - - with walker Home Medications: Medications to take at Discharge RX: Alfuzosin HCl [Uroxatral] 10 mg PO QHS 11/09/13 RX: Atorvastatin Calcium [Lipitor] 10 mg PO QHS 11/09/13 RX: Flaxseed Oil/[place] 3,6,9 [Sv Flaxseed Oil 1,300 mg Sftgl] 1 cap PO DAILY 0 11/09/13 RX: Mometasone Furoate [Nasonex] 2 spray NASAL DAILY PRN PRN 11/09/13 RX: Potassium Chloride [K-Dur] 20 meq PO BID 11/09/13 RX: Tizanidine HCl [Zanaflex] 2 - 4 mg PO QHS 11/09/13 RX: Vitamin B Complex 1 cap PO DAILY 11/09/13 RX: Glucosamine Sulf/Chondroitin A [Glucosamine-Chondroitin Cap] 1 each PO BID 10/27/14 RX: Ranitidine [Zantac] 150 mg PO BID 06/27/17 RX: Sertraline HCl [Zoloft] 50 mg PO DAILY #30 tab 07/02/17 RX: Ascorbic Acid 500 mg PO DAILY 05/08/18 RX: Aspirin E.C. [Ecotrin] 81 mg PO DAILY@0800 05/08/18 RX: Azathioprine 100 mg PO DAILY 05/08/18 RX: Benazepril HCl [Lotensin] 10 mg PO DAILY 05/08/18 RX: Gabapentin [Neurontin] 600 mg PO TID 05/08/18 RX: Insulin Detemir [Levemir FlexPen] 24 units SC QHS 05/08/18 RX: Insulin Lispro [Humalog KwikPen] 6 units SQ TID 05/08/18 RX: Magnesium Oxide [Magnesium] 1,000 mg PO BID 05/08/18 RX: Multivit-Min/FA/Lycopen/Lutein [Centrum Silver Men Tablet] 1 tab PO DAILY 05/08/18 RX: Aspirin [Aspirin, Baby] 81 mg PO DAILY@0800 tab.chew 05/15/18 RX: Cefadroxil [Duricef] 1,000 mg PO BID #20 capsule 05/15/18 RX: Guaifenesin [Mucinex] 1,200 mg PO BID #60 tablet 05/15/18 RX: Ipratropium/Albuterol Sulfate [Duoneb] 3 ml INHALATION Q6H.RT #120 ampul.neb 05/15/18 RX: Lisinopril [Zestril] 10 mg PO DAILY #30 tablet 05/15/18 RX: Prednisone [Deltasone] 20 mg PO BID #60 tablet 05/15/18 Following Prescrptions Were Given to Patient: RX: Ipratropium/Albuterol Sulfate [Duoneb] 3 ml INHALATION Q6H.RT #120 ampul.neb RX: Lisinopril [Zestril] 10 mg PO DAILY #30 tablet RX: Cefadroxil [Duricef] 1,000 mg PO BID #20 capsule RX: Guaifenesin [Mucinex] 1,200 mg PO BID #60 tablet RX: Prednisone [Deltasone] 20 mg PO BID #60 tablet Primary Care Physician: Caitlyn Allison MD [STAFF PHYSICIAN] - Please follow up with your Primary Care Physician in: in 2 weeks Please Follow Up With: Roland Pressley MD When: next week Disposition: Home with Home Health Minutes spent on discharge:: 35 Patient Condition:: Stable Medical Necessity - Tobacco Use Smoking Status: Former smoker Tobacco Use: Cigarettes Meaningful Use Info Meaningful Use Diagnoses (Choose all that apply): None applicable Code Visit Inpatient E&M: 77272 Disch Hosp
--- NOTE | 2018-05-22 09:10 | CASEMGMT ---
RN CM Discharge Follow-up Phone Call: BEVERLY: Colleen Strata: 4 Call Date: 05/22/18 Discharge Date: 05/15/18 Time of Call: 0910 Duration: 0 ? Admitting Diagnosis: MSSA Pneumonia, A/C hypoxic respiratory failure. This RN MITZI attempted to contact pt via telephone in regard to DC follow-up. Voicemail was received and message was left.
== END 2018-05-15 13:32 | disposition home or self-care (01) | DRG 177 ==
LOC: ED 16:03 → MS3 17:14
PROVIDERS: Admitting Provider Family Medicine; Emergency Provider Emergency Medicine; Family Provider Internal Medicine; PCP Internal Medicine; Visit Provider Internal Medicine
DX: J15.211 Pneumonia due to Methicillin susceptible Staphylococcus aureus (principal); J96.21 Acute and chronic respiratory failure with hypoxia; Z99.81 Dependence on supplemental oxygen; J84.89 Other specified interstitial pulmonary diseases; E11.40 Type 2 diabetes mellitus with diabetic neuropathy, unspecified; I27.20 Pulmonary hypertension, unspecified; D64.9 Anemia, unspecified; G47.33 Obstructive sleep apnea (adult) (pediatric); I10 Essential (primary) hypertension; E78.5 Hyperlipidemia, unspecified; I25.10 Atherosclerotic heart disease of native coronary artery without angina pectoris; R53.81 Other malaise; E66.9 Obesity, unspecified; F32.9 Major depressive disorder, single episode, unspecified; Z79.82 Long term (current) use of aspirin; Z68.36 Body mass index [BMI] 36.0-36.9, adult; Z79.4 Long term (current) use of insulin; Z87.891 Personal history of nicotine dependence; E29.1 Testicular hypofunction; K21.9 Gastro-esophageal reflux disease without esophagitis; J84.10 Pulmonary fibrosis, unspecified
CPT/HCPCS: 36415; 71046; 71260; 80048; 80202; 82962; 83605; 83735; 83880; 84484; 85025; 87040; 87070; 87077; 87102; 87106; 87186; 87205; 87206; 87449; 87633; 87804; 93005; 93306; 94640; 94660; 94667; 94668; 97110; 97162; 97166; 97530; 97802; 99285; J7030; J7040; J7050; Q9957; Q9967; A4216; J1940; J2405; J2930

== ENCOUNTER 2018-06-01 14:02 | Outpatient (RCR) | payer MEDICARE, SELFPAY ==
[2018-06-01 14:49] LABS: Absolute Lymphocyte Count 0.86 X10^3/ul (0.83-4.51); Basophil# 0.01 X10^3/uL; Basophil% 0.1 % (0-1); Eosinophil# 0.03 X10^3/uL; Eosinophils% 0.3 % (0-5); Hemoglobin 12.2 g/dl (13.0-16.5); Lymphocyte # 0.86 X10^3/ul (4.0); Lymphocyte % 7.3 % (19-41); Mean Corpuscular Hgb 30.3 pg (27.0-32.0); Mean Platelet Vol. 10.8 fl (6.2-12.0); Monocyte# 0.74 X10^3/uL; Monocyte% 6.3 % (0-10); Neutrophil # 9.98 X10^3/uL (2.7-7.7); Neutrophil % 85.2 % (47-70); Platelet Count 67 K/mm3 (150-450); RBC Distribution Width CV 14.1 % (11.6-14.6); RBC Distribution Width SD 46.3 fl (35.1-43.9); Red Blood Count 4.02 M/mm3 (4.6-6.2); White Blood Count 11.7 K/mm3 (4.4-11.0)
[2018-06-01 14:50] LABS: ALB/GLOB Ratio 0.9 RATIO (0.9-2.4); AST(SGOT) 30 U/L (15-37); Alanine Aminotransfer ALT/SGPT 70 U/L (16-61); Albumin, Serum 3.2 g/dL (3.2-5.0); Alkaline Phosphatase 86 U/L (45-117); Anion Gap 8 (5-15); BUN 23 mg/dL (7-18); BUN/Creat Ratio 27.6 RATIO (10-20); Calcium,Total 8.7 mg/dL (8.5-10.1); Chloride 98 mmol/L (98-107); Creatinine, Serum 0.83 mg/dL (0.70-1.30); EST Glomerular Filtration Rate 95 mL/min (>60); Est Glom Filt Rate - Afr Amer 114 mL/min (>60); Globulin 3.4 g/dL (2.2-4.2); Glucose 230 mg/dL (74-106); Magnesium 2.1 mg/dL (1.6-2.6); Potassium 4.3 mmol/L (3.5-5.1); Protein, Total 6.6 g/dL (6.4-8.2); Sodium Level 136 mmol/L (136-145)
[2018-06-01 14:56] LABS: POSITIVE COUNT NO; POSITIVE DIFFERENTIAL NO; POSITIVE MORPHOLOGY NO
[2018-06-01 15:05] LABS: Vitamin B12 1730 pg/mL (211-911)
[2018-06-01 15:25] LABS: Hemoglobin A1c 9.7 % (4.2-6.3)
== END 2018-06-01 15:02 | disposition home or self-care (01) ==
LOC: HHLAB 14:02
PROVIDERS: Family Provider Internal Medicine; PCP Internal Medicine; Referring Provider Internal Medicine; Visit Provider Internal Medicine
DX: J13 Pneumonia due to Streptococcus pneumoniae (principal); J84.10 Pulmonary fibrosis, unspecified; J96.11 Chronic respiratory failure with hypoxia; E11.40 Type 2 diabetes mellitus with diabetic neuropathy, unspecified
CPT/HCPCS: 80053; 80061; 82607; 83036; 83704; 83735; 83921; 85025

== ENCOUNTER → 2018-06-08 09:35 | Outpatient (CLI) | payer MEDICARE, SELFPAY ==
[2018-06-08 11:11] LABS: Platelet Count 67 K/mm3 (150-450)
== END ==
PROVIDERS: Family Provider Internal Medicine; PCP Internal Medicine; Visit Provider Internal Medicine
DX: D69.6 Thrombocytopenia, unspecified (principal)
CPT/HCPCS: 36415; 85049

== ENCOUNTER → 2018-07-02 09:07 | Outpatient (CLI) | payer MEDICARE, SELFPAY ==
[2018-07-02 11:03] LABS: Hematocrit 35.4 % (40-54); Hemoglobin 11.8 g/dl (13.0-16.5); Mean Corp Hgb Conc 33.3 g/gl (32-36); Mean Corpuscular Hgb 29.9 pg (27.0-32.0); Mean Corpuscular Volume 89.8 fL (80-94); Mean Platelet Vol. 9.8 fl (6.2-12.0); Platelet Count 122 K/mm3 (150-450); RBC Distribution Width CV 15.3 % (11.6-14.6); Red Blood Count 3.94 M/mm3 (4.6-6.2); White Blood Count 11.1 K/mm3 (4.4-11.0)
[2018-07-02 11:05] LABS: Differential Indicated MANUAL DIFF; POSITIVE COUNT NO; POSITIVE DIFFERENTIAL NO; POSITIVE MORPHOLOGY NO
[2018-07-02 11:28] LABS: Lymphocyte 19 % (19-41); Monocyte 8 % (0-10); Neutrophil-Band 1 % (0-5); Neutrophil-Segmented 72 % (47-70); Platelet Estimate ADEQUATE (ADEQ); Red Cell Morphology NORM C+C NORMAL (NORM C&C); Total Cells Counted 100 (MANUAL DIFF)
[2018-07-02 11:29] LABS: Absolute Lymphocyte Count 2.11 X10^3/ul (0.83-4.51); Absolute Neutrophil Count 8.1 X10^3/uL (2.0-7.7)
--- NOTE | 2018-07-02 14:27 | RAD_ITS ---
STUDY: X-RAY CHEST REASON FOR EXAM: Male, 78 years old. Fever and cough TECHNIQUE: PA and 2 lateral views of the chest. COMPARISON: 05/08/2018 FINDINGS: As are underexpanded with partial but not yet complete resolution of previously described CHF. No demonstrated infiltrate or effusion. There is no demonstrated pleural abnormality. Stable cardiomegaly. Normal mediastinum and torrey. Normal visualized pulmonary arteries. There is atherosclerotic calcification of the aortic arch with tortuosity. There are diffuse degenerative changes of the visualized thoracic spine. Normal visualized ribs, clavicles, and shoulders. There is no demonstrated abnormality of the visualized soft tissue structures of the upper abdomen. RAD/Chest PA and Lateral IMPRESSION: Underexpanded lungs with partial but not yet complete resolution of previously described CHF. Follow-up recommended to assure resolution Electronically Signed: Kale Smith MD at 13:24 EST , Service support ,
[2018-07-02 15:16] LABS: Erythrocyte Sedimentation Rate 39 mm/hr (0-20)
== END ==
PROVIDERS: Family Provider Internal Medicine; PCP Internal Medicine; Referring Provider Internal Medicine; Visit Provider Internal Medicine
DX: D69.6 Thrombocytopenia, unspecified (principal); J18.9 Pneumonia, unspecified organism; R09.02 Hypoxemia; I27.20 Pulmonary hypertension, unspecified
CPT/HCPCS: 36415; 71046; 85025; 85652

== ENCOUNTER → 2018-07-13 09:15 | Outpatient (CLI) | payer MEDICARE, SELFPAY ==
[2018-05-08 17:48] VITALS: BMI 36.5
[2018-07-13 11:34] LABS: Absolute Lymphocyte Count 1.16 X10^3/ul (0.83-4.51); Absolute Neutrophil Count 6.8 X10^3/uL (2.0-7.7); Basophil# 0.02 X10^3/uL; Basophil% 0.2 % (0-1); Eosinophils% 1.1 % (0-5); Hematocrit 33.4 % (40-54); Hemoglobin 10.8 g/dl (13.0-16.5); Lymphocyte # 1.16 X10^3/ul (4.0); Mean Corp Hgb Conc 32.3 g/gl (32-36); Mean Corpuscular Hgb 30.4 pg (27.0-32.0); Mean Corpuscular Volume 94.1 fL (80-94); Mean Platelet Vol. 10.3 fl (6.2-12.0); Monocyte# 0.64 X10^3/uL; Monocyte% 7.2 % (0-10); Neutrophil # 6.83 X10^3/uL (2.7-7.7); Neutrophil % 76.8 % (47-70); Platelet Count 99 K/mm3 (150-450); RBC Distribution Width CV 15.6 % (11.6-14.6); RBC Distribution Width SD 51.4 fl (35.1-43.9); Red Blood Count 3.55 M/mm3 (4.6-6.2); White Blood Count 8.9 K/mm3 (4.4-11.0)
[2018-07-13 11:36] LABS: POSITIVE COUNT NO; POSITIVE DIFFERENTIAL NO; POSITIVE MORPHOLOGY NO
[2018-07-13 11:53] LABS: ALB/GLOB Ratio 0.9 RATIO (0.9-2.4); AST(SGOT) 37 U/L (15-37); Alanine Aminotransfer ALT/SGPT 37 U/L (16-61); Albumin, Serum 3.1 g/dL (3.2-5.0); Alkaline Phosphatase 84 U/L (45-117); Anion Gap 9 (5-15); BUN 21 mg/dL (7-18); BUN/Creat Ratio 23.2 RATIO (10-20); Calcium,Total 8.8 mg/dL (8.5-10.1); Chloride 101 mmol/L (98-107); EST Glomerular Filtration Rate 86 mL/min (>60); Est Glom Filt Rate - Afr Amer 104 mL/min (>60); Globulin 3.3 g/dL (2.2-4.2); Glucose 226 mg/dL (74-106); Potassium 4.5 mmol/L (3.5-5.1); Protein, Total 6.4 g/dL (6.4-8.2); Sodium Level 141 mmol/L (136-145)
== END ==
PROVIDERS: Family Provider Internal Medicine; PCP Internal Medicine; Visit Provider Internal Medicine
DX: J84.10 Pulmonary fibrosis, unspecified (principal)
CPT/HCPCS: 36415; 80053; 85025; 87070; 87077; 87186; 87205

== ENCOUNTER 2018-07-16 12:41 | Inpatient (IN) | payer MEDICARE, SELFPAY ==
[2018-07-16] VITALS (19 sets, daily range): BP systolic 113–152; BP diastolic 62–130; PULSE 110–129; RESP 12–40; TEMP 36.6–37.6; O2SAT 92–100; BMI 37.6; BMI 37.7
--- NOTE | 2018-07-16 13:39 | EKG12_ITS ---
Test Reason : FALL Blood Pressure : / mmHG Vent. 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
--- NOTE | 2018-07-16 13:39 | CT_ITS ---
STUDY: CT BRAIN WITHOUT CONTRAST REASON FOR EXAM: Male, 78 years old. Laceration to the superior aspect of the skull following a fall. No loss of consciousness. RADIATION DOSAGE (If Supplied By Facility): CTDIvol = ( 60.81 ) mGy, DLP = ( 1135.50 ) mGycm TECHNIQUE: Transaxial CT imaging of the brain was performed without administration of intravenous contrast material. Individualized dose optimization techniques were used for this CT. COMPARISON: Comparison is made with prior study dated June 28, 2017. FINDINGS: Skull injury in the vertex of the head. Normal calvarium. There is moderate cerebral atrophy with widening of the extra-axial spaces and ventricular dilatation. There are areas of decreased attenuation within the white matter tracts of the supratentorial brain, consistent with microvascular disease changes. Normal basal ganglia and thalami. Normal brainstem. There is mild cerebellar atrophy. There is no intracranial hemorrhage. There are no findings of an acute ischemic infarction. Normal visualized paranasal sinuses. CT/Brain/Head without Contrast IMPRESSION: Chronic involutional changes of the brain. Electronically Signed: Saad Berry MD at 15:12 EST Tel [phone], Service support ,
--- NOTE | 2018-07-16 13:40 | CT_ITS ---
STUDY: CT CERVICAL SPINE WITHOUT CONTRAST REASON FOR EXAM: Male, 78 years old. Skull laceration due to a fall. No loss of consciousness. RADIATION DOSAGE (If Supplied By Facility): CTDIvol = ( 36.62 ) mGy, DLP = ( 727.57 ) mGycm TECHNIQUE: High resolution transaxial imaging was performed without contrast material. Sagittal and coronal images were reconstructed. Individualized dose optimization techniques were used for this CT. COMPARISON: None FINDINGS: Normal craniovertebral junction. There are degenerative changes of the anterior atlantoaxial articulation. Normal odontoid process. There is straightening of the normal cervical lordosis. Normal vertebral bodies and posterior osseous elements. C2-3: Facet joint osteoarthritis and hypertrophy worse on the left side. Uncovertebral arthrosis more prominent on the left side. No significant neural foraminal stenosis is seen. C3-4: Mild degree of disc space narrowing. Anterior spondylosis. C4-5: Moderate degree of disc space narrowing. Anterior spondylosis. Uncovertebral arthrosis. C5-6: Moderate degree of disc space narrowing. Spondylosis. Uncovertebral arthrosis. Moderate degree of the right neural foraminal stenosis. C6-7: Moderate degree of disc space narrowing with spondylosis and uncovertebral arthrosis. Moderate degree of bilateral neural foraminal stenosis. Atherosclerotic calcification of the internal carotid arteries bilaterally. CT/Spine Cervical without Contras IMPRESSION: Multilevel degenerative changes, as described above. Electronically Signed: Saad Berry MD at 15:24 EST Tel [phone], Service support ,
[2018-07-16] MEDS: 0.9% Normal Saline 1,000 ML 150 ML IV (14:18)
[2018-07-16 14:23] LABS: Absolute Lymphocyte Count 0.76 X10^3/ul (0.83-4.51); Absolute Neutrophil Count 14.6 X10^3/uL (2.0-7.7); Basophil# 0.01 X10^3/uL; Basophil% 0.1 % (0-1); Eosinophil# 0.05 X10^3/uL; Eosinophils% 0.3 % (0-5); Hemoglobin 10.9 g/dl (13.0-16.5); Lymphocyte # 0.76 X10^3/ul (4.0); Lymphocyte % 4.5 % (19-41); Mean Corp Hgb Conc 32.1 g/gl (32-36); Mean Corpuscular Hgb 29.9 pg (27.0-32.0); Mean Corpuscular Volume 93.4 fL (80-94); Monocyte# 1.13 X10^3/uL; Monocyte% 6.7 % (0-10); Neutrophil # 14.64 X10^3/uL (2.7-7.7); Neutrophil % 87.4 % (47-70); POSITIVE COUNT NO; POSITIVE DIFFERENTIAL NO; POSITIVE MORPHOLOGY NO; Platelet Count 88 K/mm3 (150-450); RBC Distribution Width CV 15.9 % (11.6-14.6); RBC Distribution Width SD 54.2 fl (35.1-43.9); Red Blood Count 3.64 M/mm3 (4.6-6.2); White Blood Count 16.8 K/mm3 (4.4-11.0)
--- NOTE | 2018-07-16 14:35 | RAD_ITS ---
STUDY: X-RAY CHEST REASON FOR EXAM: Male, 78 years old. Cough TECHNIQUE: Single frontal view of the chest. COMPARISON: 07/02/2018 FINDINGS: Central vascular congestion and diffuse pulmonary edema with low lung volumes. There is no demonstrated pleural abnormality. Stable cardiomediastinal silhouette. Normal mediastinum and torrey. Normal visualized pulmonary arteries. Normal visualized aortic arch and descending thoracic aorta. Normal visualized thoracic spine. Normal visualized ribs, clavicles, and shoulders. There is no demonstrated abnormality of the visualized soft tissue structures of the upper abdomen. RAD/Chest 1 View (Portable) IMPRESSION: Central vascular congestion and diffuse pulmonary edema with low lung volumes. Electronically Signed: Ton Daly MD at 14:53 EST Tel , Service support ,
[2018-07-16 14:37] LABS: ALB/GLOB Ratio 0.8 RATIO (0.9-2.4); AST(SGOT) 23 U/L (15-37); Alanine Aminotransfer ALT/SGPT 27 U/L (16-61); Alkaline Phosphatase 69 U/L (45-117); Anion Gap 8 (5-15); BUN 20 mg/dL (7-18); BUN/Creat Ratio 19.6 RATIO (10-20); Calcium,Total 9.3 mg/dL (8.5-10.1); Chloride 101 mmol/L (98-107); Creatinine, Serum 1.02 mg/dL (0.70-1.30); EST Glomerular Filtration Rate 75 mL/min (>60); Est Glom Filt Rate - Afr Amer 91 mL/min (>60); Estimated Creatinine Clearance 56.81 ml/min; Globulin 3.7 g/dL (2.2-4.2); Glucose 226 mg/dL (74-106); Potassium 4.6 mmol/L (3.5-5.1); Protein, Total 6.7 g/dL (6.4-8.2); Sodium Level 139 mmol/L (136-145)
[2018-07-16 14:40] LABS: Lactic Acid 1.4 mmol/L (0.4-2.0)
[2018-07-16 15:01] LABS: Mucous, Urine 0 SEEN /hpf (<or=2+)
[2018-07-16 15:20] LABS: Color, Urine Yellow (Yellow); Glucose, Dipstick 50 mg/dl (Normal); Ketone-Dipstick Negative (Negative); Urine Bilirubin Dipstick Negative (Negative); Urine Clarity Sl Cldy (Clear)
[2018-07-16 15:21] LABS: Leukocyte Esterase-Dipstick 500 /ul (Negative); Nitrite-Dipstick Positive (Negative); Occult Blood-Urine 250 /ul (Negative); Protein-Dipstick 100 mg/dl (Negative); Urine Urobilinogen Normal (Normal)
[2018-07-16 15:22] LABS: Red Blood Cells-Urine 25-50 SEEN /hpf (0-5); White Blood Cells 50-100 SEEN /hpf (0-5)
[2018-07-16 15:23] LABS: Amorphous Sediment 1+ URATE; Bacteria 3+ /hpf (None Seen); Squamous Epithelial Cells - UA 0-5 SEEN /hpf (0-5)
[2018-07-16] MEDS: Ceftriaxone 1 GM/50 ML BAG IV (15:41)
[2018-07-16] MEDS: Morphine 4 MG/ML Syringe IV (15:41)
[2018-07-16] MEDS: Ondansetron 4 MG/2 ML Vial IV (15:41)
--- NOTE | 2018-07-16 15:42 | ED.DCSUM_ITS ---
- ER Visit Summary Date of Service: 07/16/18 Chief Complaint: [Fall with head and neck pain and urinary incontinence] History of Present Illness: The patient is a 78 M [presents to the emergency department with complaint of head neck pain after sustaining a fall last evening. Patient states that he was using some sort of a roller when he lost his balance falling forward striking his head on some cupboards in the bathroom. No loss of consciousness. Patient was unable to get up therefore the called EMS who assisted the patient last night. Patient was noted to have some lacerations to his scalp however he refused transport to the ER. Today patient complaining of more pain everywhere and generalized weakness. Patient also states that he is lost control of his bladder for 5 times today. Patient has had some frequency but denies dysuria or urgency. Patient denies any fevers. Patient tells me he has a history of chronic interstitial lung disease and normally wears 10 L of oxygen at home.] Physical Examination: [HEENT-PERRLA, EOMI. Cranial nerves II through XII g rossly intact. TMs clear. Mucous membranes moist. No adenopathy. Patient has a healing 3 cm laceration to his frontal scalp. No bony step-offs. Patient has diffuse tenderness over the C-spine and cervical paraspinal musculature. Cardiovascular-regular rate and rhythm without murmur or ectopy Lungs-clear to auscultation, chest wall stable without crepitus or subcu emphysema Abdomen-normoactive bowel sounds, soft, nontender, no rebound or rigidity, no peritoneal signs. Extremities-intact ?4, normal range of motion, normal pulses, atraumatic] Test Results: [Patient had an EKG which showed a sinus rhythm with a ventricular rate of 113 bpm. 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 CBC with differential obtained showed a white count of 16.8, hemoglobin 10.9, hematocrit 34, platelets were 88. Chemistries unremarkable. Glucose was 226. LFTs unremarkable. Troponin was less than 0.015. CT scan of the brain showed nothing acute. CT C-spine showed degenerative changes. Chest x-ray showed pulmonary edema and cardiomegaly. Urinalysis was positive for 500 leukocyte esterase, positive nitrites, 50-100 WBCs and +3 bacteria.] Emergency Department Course and Treatment: [Patient had blood cultures ordered urine culture sent. Patient was started on Rocephin 1 g IV. Patient was medicated with morphine and Zofran.] Treatment Plan: [Admit for IV antibiotics and pain control] Disposition: [Admit] Impression: [UTI Sepsis Mechanical fall Close head injury] This note was generated with [employer] dictation software. It may contain incorrect words, spelling, and punctuation that were not noted in review of the chart prior to signing ED Disposition - Plan for ED Patient: Chief Complaint: Fall Referrals: Flory Pantoja MD [Primary Care Provider] -
--- NOTE | 2018-07-16 16:36 | PCM.HP.STD ---
Problem List (1) Pyelonephritis Status: Acute (2) Sepsis Status: Acute (3) Chronic hypoxemic respiratory failure Status: Chronic (4) Thrombocytopenia Status: Chronic (5) Urine retention Status: Suspected (6) BPH (benign prostatic hyperplasia) Status: Chronic (7) Coronary artery arteriosclerosis Status: Chronic (8) Diabetic neuropathy Status: Chronic (9) Gastro-esophageal reflux Status: Chronic (10) Hyperlipidemia Status: Chronic (11) Hypertension Status: Chronic (12) Hypogonadism male Status: Chronic (13) Obstructive sleep apnea of adult Status: Chronic (14) Pulmonary fibrosis Status: Chronic (15) Type 2 diabetes mellitus Status: Chronic (16) 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 The patient is a 78 year old M with a past medical history of pulmonary fibrosis, chronic respiratory failure with hypoxemia on 10 L of oxygen, chronic thrombocytopenia, BPH, coronary artery disease, diabetic nephropathy, GERD, hyperlipidemia, hypertension, moderate pulmonary hypertension, stage I diastolic dysfunction, moderate tricuspid regurgitation, hypogonadism, chronic steroid use, morbid obesity, obstructive sleep apnea and chronic normochromic normocytic anemia who presented to the emergency room today with a history of a fall on 07/15/2018 when he tripped over a towel and fell on his Left knee and struck his head. He refused to come to the ED on 07/15/18 but today he felt weak and sore all over and he was incontinent of urine. He also related that recently he has had dysuria and also suprapubic pain. He admits to feeling nauseated. He does not feel as though he empties his bladder. He has been diagnosed with BPH in the past and was on medication however for an unknown reason he stopped it. Vital signs of presentation to the emergency room were temperature 99.6, pulse rate 120, blood pressure 152/130, respiratory rate 16 and he was 98% saturated on a 6 L nasal cannula. White blood cell count is elevated at 16.8 with a left shift however the patient is on 30 mg of prednisone daily. Hemoglobin is 10.9 which is within his baseline. Platelet count is mildly decreased from his baseline at 88,000. Electrolytes are within normal limits and the BUN is 20 with a creatinine of 1.02. Troponin was less than 0.015. A UA showed 50-100 WBCs per high-power field, 3+ bacteria and positive nitrites. CT brain showed chronic involutional changes only. CT cervical spine showed multilevel degenerative changes with no fracture or dislocation. Chest x-ray showed a very poor inspiratory effort with pulmonary vascular congestion but this may be artificial secondary to the poor inspiration. He is being admitted to the hospital with a diagnosis of sepsis secondary to complicated UTI with pyelonephritis. Past Medical History Past Medical History (Chronic Problems): Chronic Problems Chronic hypoxemic respiratory failure (Chronic) Thrombocytopenia (Chronic) BPH (benign prostatic hyperplasia) (Chronic) Moderate pulmonary arterial systolic hypertension (Chronic) Morbid obesity (Chronic) Grade I diastolic dysfunction (Chronic) Moderate tricuspid regurgitation (Chronic) Obstructive sleep apnea of adult (Chronic) Pulmonary fibrosis (Chronic) Diabetic neuropathy (Chronic) Hypertension (Chronic) Gastro-esophageal reflux (Chronic) Hyperlipidemia (Chronic) Type 2 diabetes mellitus (Chronic) Hypogonadism male (Chronic) Coronary artery arteriosclerosis (Chronic) Allergies No Known Allergies Allergy (Verified 07/16/18 12:56) Home Medications: Ambulatory Orders Medication Instructions Recorded Alfuzosin HCl [Uroxatral] 10 mg PO QHS 11/09/13 Atorvastatin Calcium [Lipitor] 10 mg PO QHS 11/09/13 Flaxseed Oil/[place] 3,6,9 [Sv 1 cap PO DAILY 11/09/13 Flaxseed Oil 1,300 mg Sftgl] Potassium Chloride [K-Dur] 20 meq PO BID 11/09/13 Tizanidine HCl [Zanaflex] 2 - 4 mg PO QHS 11/09/13 Glucosamine Sulf/Chondroitin A 1 each PO BID 10/27/14 [Glucosamine-Chondroitin Cap] Ranitidine [Zantac] 150 mg PO DAILY 06/27/17 Aspirin E.C. [Ecotrin] 81 mg PO DAILY@0800 05/08/18 Benazepril HCl [Lotensin] 10 mg PO DAILY 05/08/18 Gabapentin [Neurontin] 600 mg PO TID 05/08/18 Insulin Detemir [Levemir FlexPen] 24 units SC QHS 05/08/18 Insulin Lispro [Humalog KwikPen] 6 units SQ TID 05/08/18 Magnesium Oxide [Magnesium] 1,000 mg PO BID 05/08/18 Multivit-Min/FA/Lycopen/Lutein 1 tab PO DAILY 05/08/18 [Centrum Silver Men Tablet] Ipratropium/Albuterol Sulfate 3 ml INHALATION Q6H.RT #120 05/15/18 [Duoneb] ampul.neb Lisinopril [Zestril] 10 mg PO DAILY #30 tablet 05/15/18 Ascorbic Acid [Vitamin C] 500 mg PO DAILY@0800 07/16/18 Azathioprine 150 mg PO DAILY 07/16/18 Cyanocobalamin (Vitamin B-12) 50 mcg PO BID 07/16/18 [Vitamin B-12] Prednisone 30 mg PO DAILY 07/16/18 Surgical History: herniorrhaphy, - - Bilateral eyelid surgery Psychiatric History: Depression Smoking Status: Former smoker Tobacco Use: Non-smoker Alcohol: Rare Drugs: None - *Family History Maternal History Items: Heart Disease Paternal History Items: - - Bone and prostate cancer. Review of Systems Constitutional: Reports: Weakness. Denies: Chills, Fever Eyes: Denies: Blurred vision HEENT: Reports: Head Aches - hit his head when he fell on 07/15/18. Denies: Difficulty Swallowing, Sinus Congestion, Sinus Drainage, Sore Throat Cardiovascular: Denies: Chest Pain, Light Headedness, Orthopnea, Palpitations, Syncope Respiratory: Reports: Shortness of breath at rest, Shortness of breath upon exertion. Denies: Cough, Sputum production, Wheezing Gastrointestinal: Denies: Abdominal Pain, Nausea, Vomiting Genitourinary: Reports: Dysuria, Incontinence, Nocturia, Retention, Urgency, - - suprapubic pain Musculoskeletal: Reports: Joint Pain - left knee after the recent fall. Denies: Joint Tenderness Skin: Reports: Wounds - small abrasion on the left knee. Denies: Rash Neurological: Denies: Focal weakness, Numbness, Tingling, Tremor, Seizures Psychiatric: Denies: Anxiety, Depression, Homicidal Ideations, Suicidal Ideations Endocrine: Denies: Change in Body Habitus Hematologic/ Lymphatic: Denies: Easy Bruising, Easy Bleeding, Hx of blood clot VTE Information - Inpt Only VTE Present on Admission: No VTE Mechan Device Prophylaxis: SCD's, Knee High CROW Hose VTE Pharm Prophylaxis ordered?: Yes Patient Problems: Active and Suspected Problems Pyelonephritis (Acute) Sepsis (Acute) Urine retention (Suspected) - Physical Exam General: Alert, Oriented x3, Cooperative, No apparent distress HEENT: PERRLA, EOMI, Normocephalic Oral: No Gingival or Mucosal Lesions/ Ulcerations, Dry Mucosa Neck: Supple, No Nodes, No Nuchal Rigidity, Trachea Midline Lungs: No rhonchi, No wheeze, Diminished, Rales Cardiovascular: Regular Rhythm, Normal S1, Normal S2, No murmurs, No rub noted, No Gallop, Tachycardic Abdomen: Bowel Sounds Present, Soft, Obese, Tender - in the suprapubic area Extremities: No cyanosis, No edema, Diminished Peripheral Pulses Skin: No rashes, No breakdown, - - he has a small abrasion and ecchymosis of the Left knee from recent fall Musculoskeletal: No Muscle Wasting, Arthritic Changes Neurological: Cranial nerves II-XII grossly intact, Neuro grossly intact Psych/Mental Status: Normal Affect, Appropriate Vital Signs Temp Pulse Resp BP Pulse Ox 99.6 F H 111 H 24 H 121/69 H 100 07/16/18 12:43 07/16/18 15:00 07/16/18 15:00 07/16/18 15:00 07/16/18 15:00 Oxygen Flow Rate (L/min) 10 Oxygen Delivery Method Nasal Cannula Weight: 247 lb 12.793 oz Body Mass Index (BMI) 37.6 Laboratory Tests Past 24 Hrs 07/16/18 07/16/18 07/16/18 14:07 14:07 14:07 WBC 16.8 H RBC 3.64 L Hgb 10.9 L Hct 34.0 L MCV 93.4 MCH 29.9 MCHC 32.1 RDW 15.9 H RDW Differential 54.2 H Plt Count 88 L MPV 10.0 Immature Gran % (Auto) 1.000 H Neut % (Auto) 87.4 H Lymph % (Auto) 4.5 L [place] % (Auto) 6.7 Eos % (Auto) 0.3 Baso % (Auto) 0.1 Absolute Neuts (auto) 14.6 H Absolute Lymphs (auto) 0.76 L Total Counted Not Reportable Sodium 139 Potassium 4.6 Chloride 101 Carbon Dioxide 30.0 Anion Gap 8 BUN 20 H Creatinine 1.02 Estim Creat Clear Calc 56.81 Est GFR (MDRD) Af Amer 91 Est GFR (MDRD) Non-Af 75 BUN/Creatinine Ratio 19.6 Glucose 226 H Lactic Acid 1.4 Calcium 9.3 Total Bilirubin 1.20 H AST 23 ALT 27 Alkaline Phosphatase 69 Troponin I < 0.015 Total Protein 6.7 Albumin 3.0 L Globulin 3.7 Albumin/Globulin Ratio 0.8 L Urine Color Urine Clarity Urine pH Ur Specific [place] Urine Protein Urine Glucose (UA) Urine Ketones Urine Occult Blood Urine Nitrite Urine Bilirubin Urine Urobilinogen Ur Leukocyte Esterase Urine RBC Urine WBC Ur Squamous Epith Cells Amorphous Sediment Urine Bacteria Urine Mucus 07/16/18 14:55 WBC RBC Hgb Hct MCV MCH MCHC RDW RDW Differential Plt Count MPV Immature Gran % (Auto) Neut % (Auto) Lymph % (Auto) [place] % (Auto) Eos % (Auto) Baso % (Auto) Absolute Neuts (auto) Absolute Lymphs (auto) Total Counted Sodium Potassium Chloride Carbon Dioxide Anion Gap BUN Creatinine Estim Creat Clear Calc Est GFR (MDRD) Af Amer Est GFR (MDRD) Non-Af BUN/Creatinine Ratio Glucose Lactic Acid Calcium Total Bilirubin AST ALT Alkaline Phosphatase Troponin I Total Protein Albumin Globulin Albumin/Globulin Ratio Urine Color Yellow Urine Clarity Sl Cldy Urine pH 6.0 Ur Specific [place] 1.020 Urine Protein 100 H Urine Glucose (UA) 50 H Urine Ketones Negative Urine Occult Blood 250 H Urine Nitrite Positive H Urine Bilirubin Negative Urine Urobilinogen Normal Ur Leukocyte Esterase 500 H Urine RBC 25-50 SEEN Urine WBC 50-100 SEEN Ur Squamous Epith Cells 0-5 SEEN Amorphous Sediment 1+ URATE Urine Bacteria 3+ Urine Mucus 0 SEEN Assessment/Plan All Active Problems Pyelonephritis (Acute) Sepsis (Acute) Acute pancreatitis (Resolved) Pneumonia due to Streptococcus pneumoniae (Resolved) Impressions 1. Sepsis secondary to pyelonephritis/complicated UTI 2. Suspected urinary retention-patient has a history of BPH and is off his medication and does not feel like he empties his bladder 3. Chronic hypoxemic respiratory failure on 10 L of oxygen at home secondary to pulmonary fibrosis-follows with Dr. Pressley 4. Chronic thrombocytopenia-etiology unknown 5. History of BPH 6. CAD 7. Diabetes mellitus type 2-uncontrolled 8. Diabetic nephropathy 9. GERD 10. Hypertension 11. Hyperlipidemia 12. SARAH 13. Pulmonary fibrosis 14. Moderate pulmonary hypertension 15. Morbid obesity 16. Grade 1 diastolic dysfunction 17. Moderate tricuspid regurgitation 18. Hypogonadism 19. Chronic steroid use which complicates treatment of sepsis/pyelonephritis due to immunosuppression Urine and blood cultures X 2 Lynn catheter was inserted in the ER Hydrate Bladder scan for urine residual after the Lynn is removed Start Flomax Recheck the lab in the AM Start Rocephin and Cipro - watch for mental status changes in this elderly man with FQ's. Narrow the antibiotic coverage when C&S is available Accuchecks AC and HS with SSI Decrease the HS dose of the Lantus and the mealtime insulin since he will be on a calorie controlled diet......adjust insulin daily to maintain BS's < 200 Continue the Prednisone at the current dose Check a BNP but, I suspect the vascular congestion on the CXR/rad report is due to a poor inspiratory effort and not to CHF. Code Visit Inpatient E&M: 16467 Init Hosp L3
[2018-07-16 17:59] LABS: Erythrocyte Sedimentation Rate 65 mm/hr (0-20)
[2018-07-16 18:00] LABS: Magnesium 1.9 mg/dL (1.6-2.6)
[2018-07-16 18:00] LABS: Bedside Glucose 251 mg/dL (70-110)
[2018-07-16] MEDS: Ipratropium/Albuterol Sulfate 3 ML AMPUL.NEB INHALATION ×2 (18:37→23:43)
[2018-07-16 18:54] LABS: BNP,B-Type NATRIURETIC PEPTIDE 15.4 pg/mL (0-100)
[2018-07-16] MEDS: Ciprofloxacin 400 MG/200 ML BAG 200 MG IV (20:09)
[2018-07-16] MEDS: 0.9% Normal Saline 1,000 ML 75 ML IV (20:09)
[2018-07-16] MEDS: Metoprolol Tartrate 5 MG/5 ML Vial IV (20:09)
--- NOTE | 2018-07-16 20:11 | EKG12_ITS ---
Test Reason : SOB Blood Pressure : / mmHG Vent. Rate : 109 BPM Atrial Rate : 109 BPM P-R Int : 162 ms QRS Dur : 068 ms QT Int : 302 ms P-R-T Axes : 023 010 016 degrees QTc Int : 406 ms Sinus tachycardia Possible Inferior infarct , age undetermined Anterior infarct , age undetermined Abnormal ECG When compared with ECG of 16-JUL-2018 13:53, MANUAL COMPARISON REQUIRED, DATA IS UNCONFIRMED Confirmed by SHANICE SALDANA, JOEL ([id number]), online content editor AYDE DAVILA ([id number]) on 07/20/2018 9:52:06 AM Referred By: Roland Pressley Confirmed By:JOEL PRASAD MD
--- NOTE | 2018-07-16 20:40 | CPS ---
Pt. refused IS Training. Is aware of advantages of doing exercise. Still refused using IS. Will complete order due to this refusal.
[2018-07-16] MEDS: 0.9% Normal Saline 1,000 ML 999 ML IV (21:19)
[2018-07-16] MEDS: Insulin Lispro 100 UNIT/ML INSULN.PEN SQ (21:23)
[2018-07-16] MEDS: Atorvastatin Calcium 10 MG Tablet PO (21:25)
[2018-07-16] MEDS: Famotidine 20 MG Tablet PO (21:25)
[2018-07-16] MEDS: Magnesium Oxide 400 MG Tablet PO (21:25)
[2018-07-16 22:26] LABS: Bedside Glucose 336 mg/dL (70-110)
[2018-07-17] VITALS (35 sets, daily range): BP systolic 94–140; BP diastolic 43–87; PULSE 75–117; RESP 10–40; TEMP 35.6–37.8; O2SAT 90–100
--- NOTE | 2018-07-17 00:01 | PCM.HOSP.N ---
Hospitalist Note Ongoing tachycardia, improved with 1L NS; however, still notable increased RR, BNP was negligible despite CXR findings, likely secondary to severe pulmonary fibrosis, normally on 10L NC, ongoing increased RR, discussed with RT and placed on BIPAP. Given severity of lung disease in acute infection settings, to be cautious will transition to ICU for more close monitoring, increase aerosol frequency, PRN albuterol, consult Dr. Reinoso, made aware of patient transition to ICU.
[2018-07-17] MEDS: LORazepam 2 MG/ML Syringe 0.5 MG IV ×2 (00:23→01:28)
[2018-07-17] MEDS: 0.9% NaCl Peripheral Flush Adult/Peds IV ×3 (00:26→08:37)
--- NOTE | 2018-07-17 00:50 | NURSING ---
called , Caitlyn, to notify her of patient being transferred to ICU for close monitoring of respiratory status. did not answer, this RN left a voicemail for her to call ICU and speak with Anuja if she had any questions.
[2018-07-17] MEDS: Hydrocortisone Sod Succinate 100 MG/2 ML Vial IV ×2 (01:28→05:57)
[2018-07-17 05:43] LABS: Absolute Lymphocyte Count 0.44 X10^3/ul (0.83-4.51); Absolute Neutrophil Count 14.2 X10^3/uL (2.0-7.7); Basophil# 0.01 X10^3/uL; Basophil% 0.1 % (0-1); Eosinophil# 0.02 X10^3/uL; Eosinophils% 0.1 % (0-5); Hematocrit 30.7 % (40-54); Hemoglobin 10.2 g/dl (13.0-16.5); Lymphocyte # 0.44 X10^3/ul (4.0); Lymphocyte % 2.8 % (19-41); Mean Corp Hgb Conc 33.2 g/gl (32-36); Mean Corpuscular Hgb 31.2 pg (27.0-32.0); Mean Corpuscular Volume 93.9 fL (80-94); Mean Platelet Vol. 9.9 fl (6.2-12.0); Monocyte# 0.85 X10^3/uL; Monocyte% 5.5 % (0-10); Neutrophil # 14.17 X10^3/uL (2.7-7.7); Neutrophil % 90.9 % (47-70); Platelet Count 97 K/mm3 (150-450); RBC Distribution Width SD 52.9 fl (35.1-43.9); Red Blood Count 3.27 M/mm3 (4.6-6.2); White Blood Count 15.6 K/mm3 (4.4-11.0)
[2018-07-17 05:46] LABS: Differential Indicated SCAN CRITERIA MET; POSITIVE COUNT NO; POSITIVE DIFFERENTIAL YES; POSITIVE MORPHOLOGY NO
[2018-07-17 06:05] LABS: Anion Gap 8 (5-15); BUN 18 mg/dL (7-18); BUN/Creat Ratio 18.7 RATIO (10-20); Calcium,Total 8.4 mg/dL (8.5-10.1); Chloride 102 mmol/L (98-107); Creatinine, Serum 0.96 mg/dL (0.70-1.30); EST Glomerular Filtration Rate 80 mL/min (>60); Est Glom Filt Rate - Afr Amer 97 mL/min (>60); Estimated Creatinine Clearance 96.02 ml/min; Glucose 257 mg/dL (74-106); Magnesium 1.9 mg/dL (1.6-2.6); Phosphorus 3.8 mg/dL (2.5-4.9); Potassium 4.7 mmol/L (3.5-5.1); Sodium Level 138 mmol/L (136-145)
--- NOTE | 2018-07-17 06:30 | PCM.CON.CC ---
Reason for Consult Date of Consultation: 07/17/18 Reason for Consultation: Acute on chronic hypoxemic respiratory failure History of Present Illness: The patient is a 78-year-old male, with a history as outlined below, who presented to the emergency department on July 16 with initial complaints of neck pain after sustaining a mechanical fall. The patient also reported the presence of urinary incontinence. The patient has a reported history of interstitial lung disease and chronic hypoxemic respiratory failure, with a baseline supplemental oxygen requirement of 10 L/min. 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 He is co-managed by both Dr. Pressley and an outside patient safety coordinator at [facility]. He is currently a full CODE STATUS. The patient was recently admitted to the hospital May 08-, during which time he was treated for community acquired pneumonia and acute on chronic hypoxic respiratory failure. His sputum at that time was positive for MSSA. Surface echocardiogram last completed in April 2018 revealed evidence of stage I diastolic dysfunction with an ejection fraction of 75%. The patient did have evidence of moderate pulmonary hypertension with a right ventricular systolic pressure estimated to be 58 mmHg. On presentation to the emergency department, the patient was noted to be afebrile, tachycardic and hemodynamically stable. He was initially maintaining appropriate oxygen saturations on 6 L/min via nasal cannula. Laboratory evaluation revealed elevated white blood cell count to 17,000. Chemistry profile revealed a mildly elevated creatinine of 1.02. BNP was within normal limits. Urinalysis was positive for nitrites and leukocyte esterase. 5-100 urine white blood cells was noted, as well as 3+ urine bacteria. The patient was subsequently started on IV antibiotics and admitted to the progressive care unit for ongoing management. Of note, the patient has been tachypneic and tachycardic throughout his entire hospital admission to date. There was some concern by the overnight hospitalist during the programs director hours of July 17 that the patient could decompensate clinically. Therefore, he was transitioned to the medical intensive care unit for ongoing management. However, the patient has refused to utilize BiPAP, despite having a known history of obstructive sleep apnea. He is also refused to utilize the incentive spirometer per documentation by respiratory therapy. Of note, there does appear to have been a sputum culture submitted by the patient's primary care provider on [place] 14, which was positive for 2+ Enterobacter, which was largely pansensitive. Past Medical History Past Medical History (Chronic Problems): Chronic Problems Chronic hypoxemic respiratory failure (Chronic) Thrombocytopenia (Chronic) BPH (benign prostatic hyperplasia) (Chronic) Moderate pulmonary arterial systolic hypertension (Chronic) Morbid obesity (Chronic) Grade I diastolic dysfunction (Chronic) Moderate tricuspid regurgitation (Chronic) Obstructive sleep apnea of adult (Chronic) Pulmonary fibrosis (Chronic) Diabetic neuropathy (Chronic) Hypertension (Chronic) Gastro-esophageal reflux (Chronic) Hyperlipidemia (Chronic) Type 2 diabetes mellitus (Chronic) Hypogonadism male (Chronic) Coronary artery arteriosclerosis (Chronic) Allergies No Known Allergies Allergy (Verified 07/16/18 12:56) Home Medications: Ambulatory Orders Medication Instructions Recorded Alfuzosin HCl [Uroxatral] 10 mg PO QHS 11/09/13 Atorvastatin Calcium [Lipitor] 10 mg PO QHS 11/09/13 Flaxseed Oil/Jay Em 3,6,9 [Sv 1 cap PO DAILY 11/09/13 Flaxseed Oil 1,300 mg Sftgl] Potassium Chloride [K-Dur] 20 meq PO BID 11/09/13 Tizanidine HCl [Zanaflex] 2 - 4 mg PO QHS 11/09/13 Glucosamine Sulf/Chondroitin A 1 each PO BID 10/27/14 [Glucosamine-Chondroitin Cap] Ranitidine [Zantac] 150 mg PO DAILY 06/27/17 Aspirin E.C. [Ecotrin] 81 mg PO DAILY@0800 05/08/18 Benazepril HCl [Lotensin] 10 mg PO DAILY 05/08/18 Gabapentin [Neurontin] 600 mg PO TID 05/08/18 Insulin Detemir [Levemir FlexPen] 24 units SC QHS 05/08/18 Insulin Lispro [Humalog KwikPen] 6 units SQ TID 05/08/18 Magnesium Oxide [Magnesium] 1,000 mg PO BID 05/08/18 Multivit-Min/FA/Lycopen/Lutein 1 tab PO DAILY 05/08/18 [Centrum Silver Men Tablet] Ipratropium/Albuterol Sulfate 3 ml INHALATION Q6H.RT #120 05/15/18 [Duoneb] ampul.neb Lisinopril [Zestril] 10 mg PO DAILY #30 tablet 05/15/18 Ascorbic Acid [Vitamin C] 500 mg PO DAILY@0800 07/16/18 Azathioprine 150 mg PO DAILY 07/16/18 Cyanocobalamin (Vitamin B-12) 50 mcg PO BID 07/16/18 [Vitamin B-12] Prednisone 30 mg PO DAILY 07/16/18 Surgical History: herniorrhaphy, - - Bilateral eyelid surgery Psychiatric History: Depression Smoking Status: Former smoker Tobacco Use: Non-smoker Alcohol: Rare Drugs: None - *Family History Maternal History Items: Heart Disease Paternal History Items: - - Bone and prostate cancer. Review of Systems Constitutional: Denies: Chills, Fever Eyes: Denies: Blurred vision, Double vision HEENT: Denies: Head Aches, Sinus Congestion, Sinus Drainage Cardiovascular: Denies: Chest Pain, Palpitations Respiratory: Reports: Shortness of Breath Gastrointestinal: Denies: Abdominal Pain, Nausea, Vomiting Genitourinary: Reports: Frequency Musculoskeletal: Denies: Joint Pain, Joint Tenderness Skin: Denies: Rash, Wounds Neurological: Denies: Numbness, Tingling, Focal weakness Psychiatric: Denies: Anxiety, Depression, Homicidal Ideations, Suicidal Ideations Hematologic/ Lymphatic: Denies: Easy Bruising, Easy Bleeding Patient Problems: Active and Suspected Problems Pyelonephritis (Acute) Sepsis (Acute) Urine retention (Suspected) Objective: The patient's most recent lab work, culture data and imaging studies have all been personally reviewed. Respiratory viral panel, urine and blood cultures are pending. - Physical Exam General: Alert, Cooperative, No apparent distress HEENT: Atraumatic, PERRLA, Normocephalic Oral: No Gingival or Mucosal Lesions/ Ulcerations Neck: Supple, No Nodes, Trachea Midline Lungs: Diminished, Rales - Basilar Cardiovascular: Regular rate, Regular Rhythm, Normal S1, Normal S2, No murmurs Abdomen: Bowel Sounds Present, Soft, Non Tender, Obese Extremities: No cyanosis, Edema Skin: No breakdown Musculoskeletal: No Tenderness to Palpation of Joints or Extremities, No Muscle Wasting Lymphatic: No Cervical, Supraclavicular, or Inguinal Adenopathy Neurological: Cranial nerves II-XII grossly intact, Neuro grossly intact Psych/Mental Status: Alert and oriented to time, place, person, mood and affect Vital Signs Temp Pulse Resp BP Pulse Ox 36.6 C 86 26 H 124/67 H 95 07/17/18 04:00 07/17/18 06:00 07/17/18 06:00 07/17/18 06:00 07/17/18 06:00 Oxygen Flow Rate (L/min) 14 Oxygen Delivery Method Nasal Cannula Weight: 239 lb 13.807 oz Body Mass Index (BMI) 0.1 Intake and Output for Last 24 Hours 07/15/18 07/16/18 07/17/18 23:59 23:59 23:59 Intake Total 2028 / 2028 603 / 603 Output Total 500 / 500 500 / 500 Balance 1529 / 1529 103 / 103 Microbiology Past 72 Hours 07/17/18 01:15 Respiratory Panel (PCR) - Preliminary Mucosa - Nasopharyngeal Laboratory Tests Past 24 Hrs 07/16/18 07/16/18 07/16/18 14:07 14:07 14:07 WBC 16.8 H RBC 3.64 L Hgb 10.9 L Hct 34.0 L MCV 93.4 MCH 29.9 MCHC 32.1 RDW 15.9 H RDW Differential 54.2 H Plt Count 88 L MPV 10.0 Immature Gran % (Auto) 1.000 H Neut % (Auto) 87.4 H Lymph % (Auto) 4.5 L [place] % (Auto) 6.7 Eos % (Auto) 0.3 Baso % (Auto) 0.1 Absolute Neuts (auto) 14.6 H Absolute Lymphs (auto) 0.76 L Total Counted Not Reportable ESR Sodium 139 Potassium 4.6 Chloride 101 Carbon Dioxide 30.0 Anion Gap 8 BUN 20 H Creatinine 1.02 Estim Creat Clear Calc 56.81 Est GFR (MDRD) Af Amer 91 Est GFR (MDRD) Non-Af 75 BUN/Creatinine Ratio 19.6 Glucose 226 H Hemoglobin A1c Lactic Acid 1.4 Calcium 9.3 Phosphorus Magnesium Total Bilirubin 1.20 H AST 23 ALT 27 Alkaline Phosphatase 69 Troponin I < 0.015 C-React Prot Ext Range B-Natriuretic Peptide Total Protein 6.7 Albumin 3.0 L Globulin 3.7 Albumin/Globulin Ratio 0.8 L Urine Color Urine Clarity Urine pH Ur Specific [place] Urine Protein Urine Glucose (UA) Urine Ketones Urine Occult Blood Urine Nitrite Urine Bilirubin Urine Urobilinogen Ur Leukocyte Esterase Urine RBC Urine WBC Ur Squamous Epith Cells Amorphous Sediment Urine Bacteria Urine Mucus 07/16/18 07/16/18 07/16/18 14:07 14:07 14:07 WBC RBC Hgb Hct MCV MCH MCHC RDW RDW Differential Plt Count MPV Immature Gran % (Auto) Neut % (Auto) Lymph % (Auto) [place] % (Auto) Eos % (Auto) Baso % (Auto) Absolute Neuts (auto) Absolute Lymphs (auto) Total Counted ESR 65 H Sodium Potassium Chloride Carbon Dioxide Anion Gap BUN Creatinine Estim Creat Clear Calc Est GFR (MDRD) Af Amer Est GFR (MDRD) Non-Af BUN/Creatinine Ratio Glucose Hemoglobin A1c Lactic Acid Calcium Phosphorus Magnesium 1.9 Total Bilirubin AST ALT Alkaline Phosphatase Troponin I C-React Prot Ext Range 158.00 H B-Natriuretic Peptide 15.4 Total Protein Albumin Globulin Albumin/Globulin Ratio Urine Color Urine Clarity Urine pH Ur Specific [place] Urine Protein Urine Glucose (UA) Urine Ketones Urine Occult Blood Urine Nitrite Urine Bilirubin Urine Urobilinogen Ur Leukocyte Esterase Urine RBC Urine WBC Ur Squamous Epith Cells Amorphous Sediment Urine Bacteria Urine Mucus 07/16/18 07/16/18 07/17/18 14:15 14:55 05:30 WBC 15.6 H RBC 3.27 L Hgb 10.2 L Hct 30.7 L MCV 93.9 MCH 31.2 MCHC 33.2 RDW 16.0 H RDW Differential 52.9 H Plt Count 97 L MPV 9.9 Immature Gran % (Auto) 0.600 Neut % (Auto) 90.9 H Lymph % (Auto) 2.8 L [place] % (Auto) 5.5 Eos % (Auto) 0.1 Baso % (Auto) 0.1 Absolute Neuts (auto) 14.2 H Absolute Lymphs (auto) 0.44 L Total Counted Not Reportable ESR Sodium Potassium Chloride Carbon Dioxide Anion Gap BUN Creatinine Estim Creat Clear Calc Est GFR (MDRD) Af Amer Est GFR (MDRD) Non-Af BUN/Creatinine Ratio Glucose Hemoglobin A1c 10.0 H Lactic Acid Calcium Phosphorus Magnesium Total Bilirubin AST ALT Alkaline Phosphatase Troponin I C-React Prot Ext Range B-Natriuretic Peptide Total Protein Albumin Globulin Albumin/Globulin Ratio Urine Color Yellow Urine Clarity Sl Cldy Urine pH 6.0 Ur Specific [place] 1.020 Urine Protein 100 H Urine Glucose (UA) 50 H Urine Ketones Negative Urine Occult Blood 250 H Urine Nitrite Positive H Urine Bilirubin Negative Urine Urobilinogen Normal Ur Leukocyte Esterase 500 H Urine RBC 25-50 SEEN Urine WBC 50-100 SEEN Ur Squamous Epith Cells 0-5 SEEN Amorphous Sediment 1+ URATE Urine Bacteria 3+ Urine Mucus 0 SEEN 07/17/18 05:30 WBC RBC Hgb Hct MCV MCH MCHC RDW RDW Differential Plt Count MPV Immature Gran % (Auto) Neut % (Auto) Lymph % (Auto) [place] % (Auto) Eos % (Auto) Baso % (Auto) Absolute Neuts (auto) Absolute Lymphs (auto) Total Counted ESR Sodium 138 Potassium 4.7 Chloride 102 Carbon Dioxide 28.0 Anion Gap 8 BUN 18 Creatinine 0.96 Estim Creat Clear Calc 96.02 Est GFR (MDRD) Af Amer 97 Est GFR (MDRD) Non-Af 80 BUN/Creatinine Ratio 18.7 Glucose 257 H Hemoglobin A1c Lactic Acid Calcium 8.4 L Phosphorus 3.8 Magnesium 1.9 Total Bilirubin AST ALT Alkaline Phosphatase Troponin I C-React Prot Ext Range B-Natriuretic Peptide Total Protein Albumin Globulin Albumin/Globulin Ratio Urine Color Urine Clarity Urine pH Ur Specific [place] Urine Protein Urine Glucose (UA) Urine Ketones Urine Occult Blood Urine Nitrite Urine Bilirubin Urine Urobilinogen Ur Leukocyte Esterase Urine RBC Urine WBC Ur Squamous Epith Cells Amorphous Sediment Urine Bacteria Urine Mucus POC Glucose 07/16/18 07/16/18 21:22 17:56 POC Glucose 336 H 251 H Clinical Impression(s) from Imaging Studies Brain CT 07/16/18 13:39 IMPRESSION: Chronic involutional changes of the brain. Electronically Signed: Saad Berry MD at 15:12 EST Tel [phone], Service support , Cervical Spine CT 07/16/18 13:40 IMPRESSION: Multilevel degenerative changes, as described above. Electronically Signed: Saad Berry MD at 15:24 EST Tel [phone], Service support , Chest X-Ray 07/16/18 14:35 IMPRESSION: Central vascular congestion and diffuse pulmonary edema with low lung volumes. Electronically Signed: Ton Daly MD at 14:53 EST Tel , Service support , Assessment/Plan Active and Suspected Problems Pyelonephritis (Acute) Sepsis (Acute) Urine retention (Suspected) RECOMMENDATIONS: 1. Discontinue continuous supplemental IV fluids. 2. Stop stress dose steroids, as the patient has never been hemodynamically unstable. 3. Start 1 g of IV Solu-Medrol daily times 3 days. 4. Broaden antibiotics to include Zosyn. 5. Send repeat blood cultures. 6. Continue scheduled bronchodilators. 7. Continue Imuran as ordered. 8. Continue insulin as ordered. 9. Wean supplemental oxygen as tolerated. IMPRESSIONS: 1. Sepsis secondary to suspected urinary source of infection and gram-negative bacteremia Continue current supportive measures with broad-spectrum antibiotics. The patient did have a sputum culture dated July 13 by his PCP, which revealed Enterobacter. Therefore, the patient's antibiotics were broadened this morning. He remains hemodynamically stable. Recommend discontinuation of supplemental IV fluids. 2. Acute on chronic hypoxemic respiratory failure with history of fibrosing NSIP with possible exacerbation/pulmonary infectious process Given that the patient recently had a positive sputum culture, his antibiotics will be broadened as noted above. He reportedly has a baseline 10 L/min supplemental oxygen requirement. He will be continued on Imuran, with plans to treat him with high-dose IV Solu-Medrol over the next 3 days. Continue scheduled bronchodilators. Wean supplemental oxygen as tolerated. 3. History of heart failure with preserved ejection fraction/pulmonary hypertension Recommend discontinuation of supplemental IV fluids. At the current time, the patient does not require the initiation of diuretics. 4. Hypertension/hyperlipidemia/neuropathy/diabetes mellitus/obstructive sleep apnea/GERD Complicates care, management, recovery and prognosis. Once the patient is transferred out of the medical intensive care unit, recommend that a consultation be placed to the patient's primary patient safety coordinator, Dr. Pressley. Recommend starting nocturnal CPAP therapy per home regimen. This note was generated with [employer] dictation software. It may contain incorrect words, spelling, and punctuation that were not noted in checking the note before signing. Code Visit Inpatient E&M: 33731 Init Hosp L3
--- NOTE | 2018-07-17 06:40 | CON.PCM_ITS ---
Reason for Consult Date of Consultation: 07/17/18 Reason for Consultation: Acute on chronic hypoxemic respiratory failure History of Present Illness: The patient is a 78-year-old male, with a history as outlined below, who presented to the emergency department on July 16 with initial complaints of neck pain after sustaining a mechanical fall. The patient also reported the presence of urinary incontinence. The patient has a reported history of interstitial lung disease and chronic hypoxemic respiratory failure, with a baseline supplemental oxygen requirement of 10 L/min. 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 He is co-managed by both Dr. Pressley and an outside assistant media buyer at [facility]. He is currently a full CODE STATUS. The patient was recently admitted to the hospital May 08-, during which time he was treated for community acquired pneumonia and acute on chronic hypoxic respiratory failure. His sputum at that time was positive for MSSA. Surface echocardiogram last completed in April 2018 revealed evidence of stage I diastolic dysfunction with an ejection fraction of 75%. The patient did have evidence of moderate pulmonary hypertension with a right ventricular systolic pressure estimated to be 58 mmHg. On presentation to the emergency department, the patient was noted to be afebrile, tachycardic and hemodynamically stable. He was initially maintaining appropriate oxygen saturations on 6 L/min via nasal cannula. Laboratory evaluation revealed elevated white blood cell count to 17,000. Chemistry pro file revealed a mildly elevated creatinine of 1.02. BNP was within normal limits. Urinalysis was positive for nitrites and leukocyte esterase. 5-100 urine white blood cells was noted, as well as 3+ urine bacteria. The patient was subsequently started on IV antibiotics and admitted to the progressive care unit for ongoing management. Of note, the patient has been tachypneic and tachycardic throughout his entire hospital admission to date. There was some concern by the overnight hospitalist during the software test automation engineer hours of July 17 that the patient could decompensate clinically. Therefore, he was transitioned to the medical intensive care unit for ongoing management. However, the patient has refused to utilize BiPAP, despite having a known history of obstructive sleep apnea. He is also refused to utilize the incentive spirometer per documentation by respiratory therapy. Of note, there does appear to have been a sputum culture submitted by the patient's primary care provider on July 13, which was positive for 2+ Enterobacter, which was largely pansensitive. Past Medical History Past Medical History (Chronic Problems): Chronic Problems Chronic hypoxemic respiratory failure (Chronic) Thrombocytopenia (Chronic) BPH (benign prostatic hyperplasia) (Chronic) Moderate pulmonary arterial systolic hypertension (Chronic) Morbid obesity (Chronic) Grade I diastolic dysfunction (Chronic) Moderate tricuspid regurgitation (Chronic) Obstructive sleep apnea of adult (Chronic) Pulmonary fibrosis (Chronic) Diabetic neuropathy (Chronic) Hypertension (Chronic) Gastro-esophageal reflux (Chronic) Hyperlipidemia (Chronic) Type 2 diabetes mellitus (Chronic) Hypogonadism male (Chronic) Coronary artery arteriosclerosis (Chronic) Allergies No Known Allergies Allergy (Verified 07/16/18 12:56) Home Medications: Ambulatory Orders Medication Instructions Recorded Alfuzosin HCl [Uroxatral] 10 mg PO QHS 11/09/13 Atorvastatin Calcium [Lipitor] 10 mg PO QHS 11/09/13 Flaxseed Oil/[place] 3,6,9 [Sv 1 cap PO DAILY 11/09/13 Flaxseed Oil 1,300 mg Sftgl] Potassium Chloride [K-Dur] 20 meq PO BID 11/09/13 Tizanidine HCl [Zanaflex] 2 - 4 mg PO QHS 11/09/13 Glucosamine Sulf/Chondroitin A 1 each PO BID 10/27/14 [Glucosamine-Chondroitin Cap] Ranitidine [Zantac] 150 mg PO DAILY 06/27/17 Aspirin E.C. [Ecotrin] 81 mg PO DAILY@0800 05/08/18 Benazepril HCl [Lotensin] 10 mg PO DAILY 05/08/18 Gabapentin [Neurontin] 600 mg PO TID 05/08/18 Insulin Detemir [Levemir FlexPen] 24 units SC QHS 05/08/18 Insulin Lispro [Humalog KwikPen] 6 units SQ TID 05/08/18 Magnesium Oxide [Magnesium] 1,000 mg PO BID 05/08/18 Multivit-Min/FA/Lycopen/Lutein 1 tab PO DAILY 05/08/18 [Centrum Silver Men Tablet] Ipratropium/Albuterol Sulfate 3 ml INHALATION Q6H.RT #120 05/15/18 [Duoneb] ampul.neb Lisinopril [Zestril] 10 mg PO DAILY #30 tablet 05/15/18 Ascorbic Acid [Vitamin C] 500 mg PO DAILY@0800 07/16/18 Azathioprine 150 mg PO DAILY 07/16/18 Cyanocobalamin (Vitamin B-12) 50 mcg PO BID 07/16/18 [Vitamin B-12] Prednisone 30 mg PO DAILY 07/16/18 Surgical History: herniorrhaphy, - - Bilateral eyelid surgery Psychiatric History: Depression Smoking Status: Former smoker Tobacco Use: Non-smoker Alcohol: Rare Drugs: None - *Family History Maternal History Items: Heart Disease Paternal History Items: - - Bone and prostate cancer. Review of Systems Constitutional: Denies: Chills, Fever Eyes: Denies: Blurred vision, Double vision HEENT: Denies: Head Aches, Sinus Congestion, Sinus Drainage Cardiovascular: Denies: Chest Pain, Palpitations Respiratory: Reports: Shortness of Breath Gastrointestinal: Denies: Abdominal Pain, Nausea, Vomiting Genitourinary: Reports: Frequency Musculoskeletal: Denies: Joint Pain, Joint Tenderness Skin: Denies: Rash, Wounds Neurological: Denies: Numbness, Tingling, Focal weakness Psychiatric: Denies: Anxiety, Depression, Homicidal Ideations, Suicidal Ideations Hematologic/ Lymphatic: Denies: Easy Bruising, Easy Bleeding Patient Problems: Active and Suspected Problems Pyelonephritis (Acute) Sepsis (Acute) Urine retention (Suspected) Objective: The patient's most recent lab work, culture data and imaging studies have all been personally reviewed. Respiratory viral panel, urine and blood cultures are pending. - Physical Exam General: Alert, Cooperative, No apparent distress HEENT: Atraumatic, PERRLA, Normocephalic Oral: No Gingival or Mucosal Lesions/ Ulcerations Neck: Supple, No Nodes, Trachea Midline Lungs: Diminished, Rales - Basilar Cardiovascular: Regular rate, Regular Rhythm, Normal S1, Normal S2, No murmurs Abdomen: Bowel Sounds Present, Soft, Non Tender, Obese Extremities: No cyanosis, Edema Skin: No breakdown Musculoskeletal: No Tenderness to Palpation of Joints or Extremities, No Muscle Wasting Lymphatic: No Cervical, Supraclavicular, or Inguinal Adenopathy Neurological: Cranial nerves II-XII grossly intact, Neuro grossly intact Psych/Mental Status: Alert and oriented to time, place, person, mood and affect Vital Signs Temp Pulse Resp BP Pulse Ox 36.6 C 86 26 H 124/67 H 95 07/17/18 04:00 07/17/18 06:00 07/17/18 06:00 07/17/18 06:00 07/17/18 06:00 Oxygen Flow Rate (L/min) 14 Oxygen Delivery Method Nasal Cannula Weight: 239 lb 13.807 oz Body Mass Index (BMI) 0.1 Intake and Output for Last 24 Hours 07/15/18 07/16/18 07/17/18 23:59 23:59 23:59 Intake Total 2028 / 2028 603 / 603 Output Total 500 / 500 500 / 500 Balance 1529 / 1529 103 / 103 Microbiology Past 72 Hours 07/17/18 01:15 Respiratory Panel (PCR) - Preliminary Mucosa - Nasopharyngeal Laboratory Tests Past 24 Hrs 07/16/18 07/16/18 07/16/18 14:07 14:07 14:07 WBC 16.8 H RBC 3.64 L Hgb 10.9 L Hct 34.0 L MCV 93.4 MCH 29.9 MCHC 32.1 RDW 15.9 H RDW Differential 54.2 H Plt Count 88 L MPV 10.0 Immature Gran % (Auto) 1.000 H Neut % (Auto) 87.4 H Lymph % (Auto) 4.5 L [place] % (Auto) 6.7 Eos % (Auto) 0.3 Baso % (Auto) 0.1 Absolute Neuts (auto) 14.6 H Absolute Lymphs (auto) 0.76 L Total Counted Not Reportable ESR Sodium 139 Potassium 4.6 Chloride 101 Carbon Dioxide 30.0 Anion Gap 8 BUN 20 H Creatinine 1.02 Estim Creat Clear Calc 56.81 Est GFR (MDRD) Af Amer 91 Est GFR (MDRD) Non-Af 75 BUN/Creatinine Ratio 19.6 Glucose 226 H Hemoglobin A1c Lactic Acid 1.4 Calcium 9.3 Phosphorus Magnesium Total Bilirubin 1.20 H AST 23 ALT 27 Alkaline Phosphatase 69 Troponin I < 0.015 C-React Prot Ext Range B-Natriuretic Peptide Total Protein 6.7 Albumin 3.0 L Globulin 3.7 Albumin/Globulin Ratio 0.8 L Urine Color Urine Clarity Urine pH Ur Specific Rex Urine Protein Urine Glucose (UA) Urine Ketones Urine Occult Blood Urine Nitrite Urine Bilirubin Urine Urobilinogen Ur Leukocyte Esterase Urine RBC Urine WBC Ur Squamous Epith Cells Amorphous Sediment Urine Bacteria Urine Mucus 07/16/18 07/16/18 07/16/18 14:07 14:07 14:07 WBC RBC Hgb Hct MCV MCH MCHC RDW RDW Differential Plt Count MPV Immature Gran % (Auto) Neut % (Auto) Lymph % (Auto) [place] % (Auto) Eos % (Auto) Baso % (Auto) Absolute Neuts (auto) Absolute Lymphs (auto) Total Counted ESR 65 H Sodium Potassium Chloride Carbon Dioxide Anion Gap BUN Creatinine Estim Creat Clear Calc Est GFR (MDRD) Af Amer Est GFR (MDRD) Non-Af BUN/Creatinine Ratio Glucose Hemoglobin A1c Lactic Acid Calcium Phosphorus Magnesium 1.9 Total Bilirubin AST ALT Alkaline Phosphatase Troponin I C-React Prot Ext Range 158.00 H B-Natriuretic Peptide 15.4 Total Protein Albumin Globulin Albumin/Globulin Ratio Urine Color Urine Clarity Urine pH Ur Specific Rex Urine Protein Urine Glucose (UA) Urine Ketones Urine Occult Blood Urine Nitrite Urine Bilirubin Urine Urobilinogen Ur Leukocyte Esterase Urine RBC Urine WBC Ur Squamous Epith Cells Amorphous Sediment Urine Bacteria Urine Mucus 07/16/18 07/16/18 07/17/18 14:15 14:55 05:30 WBC 15.6 H RBC 3.27 L Hgb 10.2 L Hct 30.7 L MCV 93.9 MCH 31.2 MCHC 33.2 RDW 16.0 H RDW Differential 52.9 H Plt Count 97 L MPV 9.9 Immature Gran % (Auto) 0.600 Neut % (Auto) 90.9 H Lymph % (Auto) 2.8 L [place] % (Auto) 5.5 Eos % (Auto) 0.1 Baso % (Auto) 0.1 Absolute Neuts (auto) 14.2 H Absolute Lymphs (auto) 0.44 L Total Counted Not Reportable ESR Sodium Potassium Chloride Carbon Dioxide Anion Gap BUN Creatinine Estim Creat Clear Calc Est GFR (MDRD) Af Amer Est GFR (MDRD) Non-Af BUN/Creatinine Ratio Glucose Hemoglobin A1c 10.0 H Lactic Acid Calcium Phosphorus Magnesium Total Bilirubin AST ALT Alkaline Phosphatase Troponin I C-React Prot Ext Range B-Natriuretic Peptide Total Protein Albumin Globulin Albumin/Globulin Ratio Urine Color Yellow Urine Clarity Sl Cldy Urine pH 6.0 Ur Specific Rex 1.020 Urine Protein 100 H Urine Glucose (UA) 50 H Urine Ketones Negative Urine Occult Blood 250 H Urine Nitrite Positive H Urine Bilirubin Negative Urine Urobilinogen Normal Ur Leukocyte Esterase 500 H Urine RBC 25-50 SEEN Urine WBC 50-100 SEEN Ur Squamous Epith Cells 0-5 SEEN Amorphous Sediment 1+ URATE Urine Bacteria 3+ Urine Mucus 0 SEEN 07/17/18 05:30 WBC RBC Hgb Hct MCV MCH MCHC RDW RDW Differential Plt Count MPV Immature Gran % (Auto) Neut % (Auto) Lymph % (Auto) [place] % (Auto) Eos % (Auto) Baso % (Auto) Absolute Neuts (auto) Absolute Lymphs (auto) Total Counted ESR Sodium 138 Potassium 4.7 Chloride 102 Carbon Dioxide 28.0 Anion Gap 8 BUN 18 Creatinine 0.96 Estim Creat Clear Calc 96.02 Est GFR (MDRD) Af Amer 97 Est GFR (MDRD) Non-Af 80 BUN/Creatinine Ratio 18.7 Glucose 257 H Hemoglobin A1c Lactic Acid Calcium 8.4 L Phosphorus 3.8 Magnesium 1.9 Total Bilirubin AST ALT Alkaline Phosphatase Troponin I C-React Prot Ext Range B-Natriuretic Peptide Total Protein Albumin Globulin Albumin/Globulin Ratio Urine Color Urine Clarity Urine pH Ur Specific Rex Urine Protein Urine Glucose (UA) Urine Ketones Urine Occult Blood Urine Nitrite Urine Bilirubin Urine Urobilinogen Ur Leukocyte Esterase Urine RBC Urine WBC Ur Squamous Epith Cells Amorphous Sediment Urine Bacteria Urine Mucus POC Glucose 07/16/18 07/16/18 21:22 17:56 POC Glucose 336 H 251 H Clinical Impression(s) from Imaging Studies Brain CT 07/16/18 13:39 IMPRESSION: Chronic involutional changes of the brain. Electronically Signed: Saad Berry MD at 15:12 EST Tel [phone], Service support , Cervical Spine CT 07/16/18 13:40 IMPRESSION: Multilevel degenerative changes, as described above. Electronically Signed: Saad Berry MD at 15:24 EST Tel [phone], Service support , Chest X-Ray 07/16/18 14:35 IMPRESSION: Central vascular congestion and diffuse pulmonary edema with low lung volumes. Electronically Signed: Ton Daly MD at 14:53 EST Tel , Service support , Assessment/Plan Active and Suspected Problems Pyelonephritis (Acute) Sepsis (Acute) Urine retention (Suspected) RECOMMENDATIONS: 1. Discontinue continuous supplemental IV fluids. 2. Stop stress dose steroids, as the patient has never been hemodynamically unstable. 3. Start 1 g of IV Solu-Medrol daily times 3 days. 4. Broaden antibiotics to include Zosyn. 5. Send repeat blood cultures. 6. Continue scheduled bronchodilators. 7. Continue Imuran as ordered. 8. Continue insulin as ordered. 9. Wean supplemental oxygen as tolerated. IMPRESSIONS: 1. Sepsis secondary to suspected urinary source of infection and gram-negative bacteremia Continue current supportive measures with broad-spectrum antibiotics. The patient did have a sputum culture dated July 13 by his PCP, which revealed Enterobacter. Therefore, the patient's antibiotics were broadened this morning. He remains hemodynamically stable. Recommend discontinuation of supplemental IV fluids. 2. Acute on chronic hypoxemic respiratory failure with history of fibrosing NSIP with possible exacerbation/pulmonary infectious process Given that the patient recently had a positive sputum culture, his antibiotics will be broadened as noted above. He reportedly has a baseline 10 L/min supplemental oxygen requirement. He will be continued on Imuran, with plans to treat him with high-dose IV Solu-Medrol over the next 3 days. Continue scheduled bronchodilators. Wean supplemental oxygen as tolerated. 3. History of heart failure with preserved ejection fraction/pulmonary hypertension Recommend discontinuation of supplemental IV fluids. At the current time, the patient does not require the initiation of diuretics. 4. Hypertension/hyperlipidemia/neuropathy/diabetes mellitus/obstructive sleep apnea/GERD Complicates care, management, recovery and prognosis. Once the patient is transferred out of the medical intensive care unit, recommend that a consultation be placed to the patient's primary assistant media buyer, Dr. Pressley. Recommend starting nocturnal CPAP therapy per home regimen. This note was generated with SnowBallation software. It may contain incorrect words, spelling, and punctuation that were not noted in checking the note before signing. Code Visit Inpatient E&M: 67097 Init Hosp L3
[2018-07-17] MEDS: Ipratropium/Albuterol Sulfate 3 ML AMPUL.NEB INHALATION ×3 (07:00→19:27)
--- NOTE | 2018-07-17 08:33 | PN_ITS ---
Patient Problems: Active and Suspected Problems Pyelonephritis (Acute) Sepsis (Acute) Urine retention (Suspected) Subjective: Patient was seen and examined. Transferred to ICU last night for worsening respiratory status. He refused to wear BiPAP. Been on 13 L of oxygen. Discussed with inspector watch parts, patient wants to be full code. Appears not to fully understand the implication of being intubated and being on mechanical ventilator. He feels improved. Denied any chest pain or dizziness or palpitations or shortness of breath. He was 10 L of oxygen at home. Preliminary blood cultures growing gram-negative rods. Respiratory panel has been negative Objective: Physical Exam General: Alert, Oriented x3, Cooperative, No apparent distress, obese, on 13 L of oxygen HEENT: PERRLA, EOMI, Normocephalic Oral: No Gingival or Mucosal Lesions/ Ulcerations, Dry Mucosa Neck: Supple, No Nodes, No Nuchal Rigidity, Trachea Midline Lungs: Diminished, no wheezes or rales Cardiovascular: Regular Rhythm, Normal S1, Normal S2, No murmurs, No rub noted, No Gallop, Tachycardic Abdomen: Bowel Sounds Present, Soft, Obese, Tender - in the suprapubic area Extremities: No cyanosis, No edema, Diminished Peripheral Pulses Skin: No rashes, No breakdown, - - he has a small abrasion and ecchymosis of the Left knee from recent fall Musculoskeletal: No Muscle Wasting, Arthritic Changes Neurological: Cranial nerves II-XII grossly intact, Neuro grossly intact Psych/Mental Status: Normal Affect, Appropriate Vitals/I&O's: Vital Signs Temp Pulse Resp BP Pulse Ox 97.9 F 79 24 H 124/67 H 96 07/17/18 04:00 07/17/18 07:00 07/17/18 07:00 07/17/18 06:00 07/17/18 07:00 Oxygen Flow Rate (L/min) 13 Oxygen Delivery Method Nasal Cannula Weight: 108.8 kg Body Mass Index (BMI) 0.1 Intake and Output for Last 24 Hours 07/15/18 07/16/18 07/17/18 23:59 23:59 23:59 Intake Total 2028 603 / 603 Output Total 500 / 500 500 / 500 Balance 1529 / 1529 103 / 103 Microbiology Past 72 Hours 07/16/18 14:15 Blood Culture (Wb) - Left Wrist Blood Culture - Preliminary 07/17/18 01:15 Mucosa - Nasopharyngeal Respiratory Panel (PCR) - Final Laboratory Results 07/16/18 14:07: WBC 16.8 H, RBC 3.64 L, Hgb 10.9 L, Hct 34.0 L, MCV 93.4, MCH 29.9, MCHC 32.1, RDW 15.9 H, RDW Differential 54.2 H, Plt Count 88 L, MPV 10.0, Immature Gran % (Auto) 1.000 H, Neut % (Auto) 87.4 H, Lymph % (Auto) 4.5 L, [place] % (Auto) 6.7, Eos % (Auto) 0.3, Baso % (Auto) 0.1, Absolute Neuts (auto) 14.6 H, Absolute Lymphs (auto) 0.76 L, Total Counted Not Reportable 07/16/18 14:07: Sodium 139, Potassium 4.6, Chloride 101, Carbon Dioxide 30.0, Anion Gap 8, BUN 20 H, Creatinine 1.02, Estim Creat Clear Calc 56.81, Est GFR (MDRD) Af Amer 91, Est GFR (MDRD) Non-Af 75, BUN/Creatinine Ratio 19.6, Glucose 226 H, Calcium 9.3, Total Bilirubin 1.20 H, AST 23, ALT 27, Alkaline Phosphatase 69, Troponin I < 0.015, Total Protein 6.7, Albumin 3.0 L, Globulin 3.7, Albumin/Globulin Ratio 0.8 L 07/16/18 14:07: Lactic Acid 1.4 07/16/18 14:07: Magnesium 1.9, C-React Prot Ext Range 158.00 H 07/16/18 14:07: B-Natriuretic Peptide 15.4 07/16/18 14:07: ESR 65 H 07/16/18 14:15: Hemoglobin A1c 10.0 H 07/16/18 14:55: Urine Color Yellow, Urine Clarity Sl Cldy, Urine pH 6.0, Ur Specific [place] 1.020, Urine Protein 100 H, Urine Glucose (UA) 50 H, Urine Ketones Negative, Urine Occult Blood 250 H, Urine Nitrite Positive H, Urine Bilirubin Negative, Urine Urobilinogen Normal, Ur Leukocyte Esterase 500 H, Urine RBC 25-50 SEEN, Urine WBC 50-100 SEEN, Ur Squamous Epith Cells 0-5 SEEN, Amorphous Sediment 1+ URATE, Urine Bacteria 3+, Urine Mucus 0 SEEN 07/16/18 17:56: POC Glucose 251 H 07/16/18 21:22: POC Glucose 336 H 07/17/18 05:30: WBC 15.6 H, RBC 3.27 L, Hgb 10.2 L, Hct 30.7 L, MCV 93.9, MCH 31.2, MCHC 33.2, RDW 16.0 H, RDW Differential 52.9 H, Plt Count 97 L, MPV 9.9, Immature Gran % (Auto) 0.600, Neut % (Auto) 90.9 H, Lymph % (Auto) 2.8 L, [place] % (Auto) 5.5, Eos % (Auto) 0.1, Baso % (Auto) 0.1, Absolute Neuts (auto) 14.2 H, Absolute Lymphs (auto) 0.44 L, Total Counted Not Reportable 07/17/18 05:30: Sodium 138, Potassium 4.7, Chloride 102, Carbon Dioxide 28.0, Anion Gap 8, BUN 18, Creatinine 0.96, Estim Creat Clear Calc 96.02, Est GFR (MDRD) Af Amer 97, Est GFR (MDRD) Non-Af 80, BUN/Creatinine Ratio 18.7, Glucose 257 H, Calcium 8.4 L, Phosphorus 3.8, Magnesium 1.9 Current Medications Acetaminophen (Tylenol) 650 mg PO Q6H PRN PRN PRN Reason: Mild Pain (scale 0-3)/T>100.7 Albuterol Sulfate (Ventolin Aerosols) 2.5 mg INHALATION Q2H PRN PRN PRN Reason: dyspnea, wheezing Albuterol/Ipratropium (Duoneb) 3 ml INHALATION Q4HWA.RT [facility] Last Admin: 07/17/18 07:00 Dose: 3 ml Ascorbic Acid (Vitamin C) 500 mg PO DAILY@0800 [facility] Aspirin (Ecotrin) 81 mg PO DAILY@0800 [facility] Atorvastatin Calcium (Lipitor) 10 mg PO QHS [facility] Last Admin: 07/16/18 21:25 Dose: 10 mg [facility] ([facility]) [facility] Bisacodyl (Dulcolax) 5 mg PO DAILY PRN PRN PRN Reason: Constipation Enoxaparin Sodium (Lovenox) 40 mg SC DAILY@1000 [facility] Famotidine (Pepcid) 20 mg PO BID [facility] Last Admin: 07/16/18 21:25 Dose: 20 mg Gabapentin (Neurontin) 600 mg PO TIDCM [facility] Sodium Chloride () 250 mls @ 15 mls/hr IV .[id number] PRN PRN Reason: SALINE FLUSH Piperacillin Sod/Tazobactam Sod (Zosyn) 3.375 gm in 50 mls @ 12.5 mls/hr IV Q8 [facility] Methylprednisolone 1,000 mg/ (Sodium Chloride) 116 mls @ 100 mls/hr IV DAILY [facility] Stop: 07/20/18 10:01 Insulin Glargine (Lantus (Bk)) 18 units SC QHS [facility] Last Admin: 07/16/18 21:24 Dose: 18 u Insulin Human Lispro (Humalog Kwikpen ([facility])) 0 unit SQ ACHS [facility]; Protocol Last Admin: 07/16/18 21:23 Dose: 4 u Insulin Human Lispro (Humalog Kwikpen ([facility])) 4 unit SC TIDAC [facility] Lisinopril (Zestril) 10 mg PO DAILY [facility] Lorazepam (Ativan) 0.5 mg IV Q4H PRN PRN PRN Reason: anxiety with BIPAP Last Admin: 07/17/18 01:28 Dose: 0.5 mg Magnesium Hydroxide (Milk Of Magnesia) 30 ml PO DAILY PRN PRN Reason: Constipation Magnesium Oxide (Mag-Ox 400) 400 mg PO BID [facility] Last Admin: 07/16/18 21:25 Dose: 400 mg Multivitamins/Minerals (Multivitamin With Minerals) 1 tablet PO DAILY@0800 [facility] Oxycodone HCl (Oxyir) 5 mg PO Q4H PRN PRN PRN Reason: Moderate Pain (pain scale 4-5) Potassium Chloride (K-Dur) 20 meq PO BID [facility] Last Admin: 07/16/18 21:24 Dose: 20 meq Prochlorperazine Edisylate (Compazine Iv) 5 - 10 mg IV Q6H PRN PRN PRN Reason: Nausea/Vomiting Sodium Chloride () 5 - 15 ml IV UD PRN PRN Reason: SALINE FLUSH Last Admin: 07/17/18 01:28 Dose: 15 ml Tamsulosin HCl (Flomax) 0.4 mg PO DAILY@0830 [facility] Medical Necessity - Tobacco Use Smoking Status: Former smoker Tobacco Use: Non-smoker Assessment/Plan All Active Problems Pyelonephritis (Acute) Sepsis (Acute) Acute pancreatitis (Resolved) Pneumonia due to Streptococcus pneumoniae (Resolved) 78 year-old male with multiple comorbidities including pulmonary fibrosis, with chronic hypoxic respiratory failure on 10 L of oxygen at home, follows with Dr. Siegel, comes in with complaints of urine incontinence, generalized weakness and a 1 day history of fall. 1. Sepsis secondary to suspected complicated GNR UTI/gram-negative stacy bacteremia, blood cultures growing gram-negative stacy, urine cultures growing GNR lactose vp of customer experience strategy, on Zosyn, stable vitals, light improvement to leukocytosis. We will continue to monitor on antibiotics. Will switch antibiotics as sensi tivities come in. 2. Acute on chronic respiratory failure secondary to acute exacerbation of pulmonary fibrosis, respiratory panel is negative, recent sputum cultures have been positive for Enterobacter. Discussed with inspector watch parts, patient is immunosuppressed, on IV Solu-Medrol high-dose for 3 days, continue with breathing treatments, continued oxygen, continue to wean off oxygen. 3. Suspected urinary retention, history of BPH, on Flomax 4. Type II DM, sugars are uncontrolled, this will be uncontrolled for a while secondary to high-dose steroids, on Lantus 18 units nightly, as well as 4 units lispro 3 times daily, would increase insulin sliding scale to high dose insulin sliding scale 5. Hypertension, controlled, continue on lisinopril, continue to monitor vitals 6. Hyperlipidemia, on statin 7. Morbid obesity, BMI 36.5, diet and exercise is recommended for later 8. DVT PPx- lovenox SC 9. CODE STATUS: Full code, previously discussed by inspector watch parts, reiterated to patient to expedite decision making while he is in the ICU. Code Visit Inpatient E&M: 83652 Subs Hosp L3
[2018-07-17] MEDS: Piperacil/Tazobactam 3.375 GM/50 ML ML IV ×3 (08:37→21:35)
[2018-07-17] MEDS: Aspirin E.C. 81 MG Tablet PO (08:44)
[2018-07-17] MEDS: Tamsulosin HCl 0.4 MG Capsule PO (08:45)
[2018-07-17] MEDS: Multivitamins,Ther W-Minerals Tablet 1 TABLET PO (08:45)
[2018-07-17] MEDS: azaTHIOprine 50 MG Tablet 150 MG PO (08:45)
[2018-07-17] MEDS: Magnesium Oxide 400 MG Tablet PO ×2 (08:45→21:05)
[2018-07-17] MEDS: Gabapentin 600 MG Tablet PO ×3 (08:45→17:33)
[2018-07-17] MEDS: Ascorbic Acid 500 MG Tablet PO (08:45)
[2018-07-17] MEDS: Insulin Lispro 100 UNIT/ML INSULN.PEN SQ ×3 (08:46→17:34)
[2018-07-17] MEDS: Insulin Lispro 100 UNIT/ML INSULN.PEN SC ×3 (08:46→17:33)
[2018-07-17 08:56] LABS: Bedside Glucose 268 mg/dL (70-110)
--- NOTE | 2018-07-17 10:04 | CASEMGMT ---
CRESCENCIO CM Assessment Presentation: Pt presented to ER with recent fall, generalized weakness, urinary incontinence. Hx of pulmonary fibrosis, on high liter flow oxygen 10L at home. PCP: Dr. Pantoja Specialists: Dr. Pressley [facility] Insurance: [facility] Prescription Benefit: yes LNOK: Living Arrangements: Lives in mobile home with . Few steps into home, then one floor. Pt states is infirmed, has caregivers, does not drive. He states he is independent in ADL's. Transportation: friends drive, pt does not drive anymore. DME: Home oxygen through [employer]. Has larger concentrator able to accommodate 10L NC, portability, nebulizer and CPAP. Walker. HHC: none, has been to [facility] last year for skilled stay. PT/OT has been ordered, evaluations pending. DC PLAN: leah. Jeanette PRATHER BSN CM
[2018-07-17] MEDS: Lisinopril 10 MG Tablet PO (10:16)
[2018-07-17] MEDS: Enoxaparin 40 MG/0.4 ML Syringe SC (10:16)
[2018-07-17] MEDS: Famotidine 20 MG Tablet PO ×2 (10:16→21:05)
--- NOTE | 2018-07-17 11:05 | CASEMGMT ---
Pt reported to admitting RN that he does not have LW/POA forms and declined further information. ROBE Smiley, GAS BRAZER
[2018-07-17 11:36] LABS: Bedside Glucose 253 mg/dL (70-110)
[2018-07-17 19:21] LABS: Bedside Glucose 410 mg/dL (70-110)
[2018-07-17] MEDS: Atorvastatin Calcium 10 MG Tablet PO (21:05)
[2018-07-17 21:11] LABS: Bedside Glucose 478 mg/dL (70-110)
[2018-07-17] MEDS: Insulin Lispro 100 UNIT/ML INSULN.PEN 18 UNIT SC (21:31)
[2018-07-17] MEDS: Albuterol 2.5 MG/3 ML VIAL.NEB. INHALATION (23:10)
[2018-07-18] VITALS (22 sets, daily range): BP systolic 95–133; BP diastolic 52–97; PULSE 76–114; RESP 16–37; TEMP 36.1–36.6; O2SAT 89–100
[2018-07-18] MEDS: Piperacil/Tazobactam 3.375 GM/50 ML ML IV (05:23)
--- NOTE | 2018-07-18 05:51 | PCM.PN.INT ---
Subjective: The patient was seen and examined at the bedside this morning. Events from the last 24 hours have been reviewed. The patient is currently afebrile hemodynamically stable. He is tolerating nocturnal CPAP per home regimen. The patient was able to be weaned to 12 L/min last evening, prior to being placed on CPAP. Nursing staff does report that the patient desaturates avidly with very little activity. Blood glucose levels have been on the high side due to high dose steroids. The patient's basal insulin regimen was increased overnight. He remains on a high intensity sliding scale. Objective: The patient's most recent lab work, culture data and imaging studies have all been personally reviewed. Preliminary blood culture from July 16 was positive for gram-negative rods. 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 Respiratory viral panel was negative. Repeat blood cultures are currently pending. Sputum culture dated July 13 was positive for Enterobacter. General: Alert, Cooperative, No apparent distress, - - CPAP currently in place HEENT: Atraumatic, PERRLA, Normocephalic Oral: No Gingival or Mucosal Lesions/ Ulcerations Neck: Supple, No Nodes, Trachea Midline Lungs: No rhonchi, No wheeze, Diminished, Rales - Bibasilar Cardiovascular: Regular rate, Regular Rhythm, Normal S1, Normal S2 Abdomen: Bowel Sounds Present, Soft, Non Tender, Obese Extremities: No clubbing, No cyanosis, Edema Skin: - - No significant change from previous Musculoskeletal: No Tenderness to Palpation of Joints or Extremities, No Muscle Wasting Lymphatic: No Cervical, Supraclavicular, or Inguinal Adenopathy Neurological: Cranial nerves II-XII grossly intact, Neuro grossly intact Psych/Mental Status: Normal Affect, Appropriate Vital Signs Temp Pulse Resp BP Pulse Ox 36.6 C 76 16 106/68 100 07/18/18 04:42 07/18/18 04:42 07/18/18 04:42 07/18/18 04:42 07/18/18 04:42 Oxygen Flow Rate (L/min) 12 Oxygen Delivery Method CPAP Weight: 239 lb 13.807 oz Body Mass Index (BMI) 0.1 Intake and Output for Last 24 Hours 07/16/18 07/17/18 07/18/18 23:59 23:59 23:59 Intake Total 2028 / 2028 2579 / 2579 186.9 / 186.9 Output Total 500 / 500 2775 / 2775 700 / 700 Balance 1529 / 1529 -196 / -196 -513.1 / -513.1 Labs (Last 48 Hours) 07/16/18 07/16/18 07/16/18 14:07 14:07 14:07 WBC 16.8 H RBC 3.64 L Hgb 10.9 L Hct 34.0 L MCV 93.4 MCH 29.9 MCHC 32.1 RDW 15.9 H RDW Differential 54.2 H Plt Count 88 L MPV 10.0 Immature Gran % (Auto) 1.000 H Neut % (Auto) 87.4 H Lymph % (Auto) 4.5 L [place] % (Auto) 6.7 Eos % (Auto) 0.3 Baso % (Auto) 0.1 Absolute Neuts (auto) 14.6 H Absolute Lymphs (auto) 0.76 L Total Counted Not Reportable ESR Sodium 139 Potassium 4.6 Chloride 101 Carbon Dioxide 30.0 Anion Gap 8 BUN 20 H Creatinine 1.02 Estim Creat Clear Calc 56.81 Est GFR (MDRD) Af Amer 91 Est GFR (MDRD) Non-Af 75 BUN/Creatinine Ratio 19.6 Glucose 226 H Hemoglobin A1c Lactic Acid 1.4 Calcium 9.3 Phosphorus Magnesium Total Bilirubin 1.20 H AST 23 ALT 27 Alkaline Phosphatase 69 Troponin I < 0.015 C-React Prot Ext Range B-Natriuretic Peptide Total Protein 6.7 Albumin 3.0 L Globulin 3.7 Albumin/Globulin Ratio 0.8 L Urine Color Urine Clarity Urine pH Ur Specific [place] Urine Protein Urine Glucose (UA) Urine Ketones Urine Occult Blood Urine Nitrite Urine Bilirubin Urine Urobilinogen Ur Leukocyte Esterase Urine RBC Urine WBC Ur Squamous Epith Cells Amorphous Sediment Urine Bacteria Urine Mucus POC Glucose 07/16/18 07/16/18 07/16/18 14:07 14:07 14:07 WBC RBC Hgb Hct MCV MCH MCHC RDW RDW Differential Plt Count MPV Immature Gran % (Auto) Neut % (Auto) Lymph % (Auto) [place] % (Auto) Eos % (Auto) Baso % (Auto) Absolute Neuts (auto) Absolute Lymphs (auto) Total Counted ESR 65 H Sodium Potassium Chloride Carbon Dioxide Anion Gap BUN Creatinine Estim Creat Clear Calc Est GFR (MDRD) Af Amer Est GFR (MDRD) Non-Af BUN/Creatinine Ratio Glucose Hemoglobin A1c Lactic Acid Calcium Phosphorus Magnesium 1.9 Total Bilirubin AST ALT Alkaline Phosphatase Troponin I C-React Prot Ext Range 158.00 H B-Natriuretic Peptide 15.4 Total Protein Albumin Globulin Albumin/Globulin Ratio Urine Color Urine Clarity Urine pH Ur Specific [place] Urine Protein Urine Glucose (UA) Urine Ketones Urine Occult Blood Urine Nitrite Urine Bilirubin Urine Urobilinogen Ur Leukocyte Esterase Urine RBC Urine WBC Ur Squamous Epith Cells Amorphous Sediment Urine Bacteria Urine Mucus POC Glucose 07/16/18 07/16/18 07/16/18 14:15 14:55 17:56 WBC RBC Hgb Hct MCV MCH MCHC RDW RDW Differential Plt Count MPV Immature Gran % (Auto) Neut % (Auto) Lymph % (Auto) [place] % (Auto) Eos % (Auto) Baso % (Auto) Absolute Neuts (auto) Absolute Lymphs (auto) Total Counted ESR Sodium Potassium Chloride Carbon Dioxide Anion Gap BUN Creatinine Estim Creat Clear Calc Est GFR (MDRD) Af Amer Est GFR (MDRD) Non-Af BUN/Creatinine Ratio Glucose Hemoglobin A1c 10.0 H Lactic Acid Calcium Phosphorus Magnesium Total Bilirubin AST ALT Alkaline Phosphatase Troponin I C-React Prot Ext Range B-Natriuretic Peptide Total Protein Albumin Globulin Albumin/Globulin Ratio Urine Color Yellow Urine Clarity Sl Cldy Urine pH 6.0 Ur Specific [place] 1.020 Urine Protein 100 H Urine Glucose (UA) 50 H Urine Ketones Negative Urine Occult Blood 250 H Urine Nitrite Positive H Urine Bilirubin Negative Urine Urobilinogen Normal Ur Leukocyte Esterase 500 H Urine RBC 25-50 SEEN Urine WBC 50-100 SEEN Ur Squamous Epith Cells 0-5 SEEN Amorphous Sediment 1+ URATE Urine Bacteria 3+ Urine Mucus 0 SEEN POC Glucose 251 H 07/16/18 07/17/18 07/17/18 21:22 05:30 05:30 WBC 15.6 H RBC 3.27 L Hgb 10.2 L Hct 30.7 L MCV 93.9 MCH 31.2 MCHC 33.2 RDW 16.0 H RDW Differential 52.9 H Plt Count 97 L MPV 9.9 Immature Gran % (Auto) 0.600 Neut % (Auto) 90.9 H Lymph % (Auto) 2.8 L [place] % (Auto) 5.5 Eos % (Auto) 0.1 Baso % (Auto) 0.1 Absolute Neuts (auto) 14.2 H Absolute Lymphs (auto) 0.44 L Total Counted Not Reportable ESR Sodium 138 Potassium 4.7 Chloride 102 Carbon Dioxide 28.0 Anion Gap 8 BUN 18 Creatinine 0.96 Estim Creat Clear Calc 96.02 Est GFR (MDRD) Af Amer 97 Est GFR (MDRD) Non-Af 80 BUN/Creatinine Ratio 18.7 Glucose 257 H Hemoglobin A1c Lactic Acid Calcium 8.4 L Phosphorus 3.8 Magnesium 1.9 Total Bilirubin AST ALT Alkaline Phosphatase Troponin I C-React Prot Ext Range B-Natriuretic Peptide Total Protein Albumin Globulin Albumin/Globulin Ratio Urine Color Urine Clarity Urine pH Ur Specific [place] Urine Protein Urine Glucose (UA) Urine Ketones Urine Occult Blood Urine Nitrite Urine Bilirubin Urine Urobilinogen Ur Leukocyte Esterase Urine RBC Urine WBC Ur Squamous Epith Cells Amorphous Sediment Urine Bacteria Urine Mucus POC Glucose 336 H 07/17/18 07/17/18 07/17/18 08:44 11:32 17:31 WBC RBC Hgb Hct MCV MCH MCHC RDW RDW Differential Plt Count MPV Immature Gran % (Auto) Neut % (Auto) Lymph % (Auto) [place] % (Auto) Eos % (Auto) Baso % (Auto) Absolute Neuts (auto) Absolute Lymphs (auto) Total Counted ESR Sodium Potassium Chloride Carbon Dioxide Anion Gap BUN Creatinine Estim Creat Clear Calc Est GFR (MDRD) Af Amer Est GFR (MDRD) Non-Af BUN/Creatinine Ratio Glucose Hemoglobin A1c Lactic Acid Calcium Phosphorus Magnesium Total Bilirubin AST ALT Alkaline Phosphatase Troponin I C-React Prot Ext Range B-Natriuretic Peptide Total Protein Albumin Globulin Albumin/Globulin Ratio Urine Color Urine Clarity Urine pH Ur Specific [place] Urine Protein Urine Glucose (UA) Urine Ketones Urine Occult Blood Urine Nitrite Urine Bilirubin Urine Urobilinogen Ur Leukocyte Esterase Urine RBC Urine WBC Ur Squamous Epith Cells Amorphous Sediment Urine Bacteria Urine Mucus POC Glucose 268 H 253 H 410 H 07/17/18 21:01 WBC RBC Hgb Hct MCV MCH MCHC RDW RDW Differential Plt Count MPV Immature Gran % (Auto) Neut % (Auto) Lymph % (Auto) [place] % (Auto) Eos % (Auto) Baso % (Auto) Absolute Neuts (auto) Absolute Lymphs (auto) Total Counted ESR Sodium Potassium Chloride Carbon Dioxide Anion Gap BUN Creatinine Estim Creat Clear Calc Est GFR (MDRD) Af Amer Est GFR (MDRD) Non-Af BUN/Creatinine Ratio Glucose Hemoglobin A1c Lactic Acid Calcium Phosphorus Magnesium Total Bilirubin AST ALT Alkaline Phosphatase Troponin I C-React Prot Ext Range B-Natriuretic Peptide Total Protein Albumin Globulin Albumin/Globulin Ratio Urine Color Urine Clarity Urine pH Ur Specific [place] Urine Protein Urine Glucose (UA) Urine Ketones Urine Occult Blood Urine Nitrite Urine Bilirubin Urine Urobilinogen Ur Leukocyte Esterase Urine RBC Urine WBC Ur Squamous Epith Cells Amorphous Sediment Urine Bacteria Urine Mucus POC Glucose 478 H* Microbiology 07/16/18 14:55 Urine, Clean Catch Urine Culture - Preliminary 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 Electronically Signed: Saad Berry MD at 15:12 EST Tel [phone], Service support , Cervical Spine CT 07/16/18 13:40 IMPRESSION: Multilevel degenerative changes, as described above. Electronically Signed: Saad Berry MD at 15:24 EST Tel [phone], Service support , Chest X-Ray 07/16/18 14:35 IMPRESSION: Central vascular congestion and diffuse pulmonary edema with low lung volumes. Electronically Signed: Ton Daly MD at 14:53 EST Tel , Service support , Medical Necessity - Tobacco Use Smoking Status: Former smoker Tobacco Use: Non-smoker Assessment/Plan All Active Problems Pyelonephritis (Acute) Sepsis (Acute) Acute pancreatitis (Resolved) Pneumonia due to Streptococcus pneumoniae (Resolved) RECOMMENDATIONS: 1. Continue scheduled bronchodilators 2. Continue high-dose IV Solu-Medrol for an additional 2 days. 3. Continue Zosyn. 4. Continue Imuran as ordered. 5. Continue insulin as ordered. This may require additional upward titration, depending on the patient's blood sugar recheck. 6. Wean supplemental oxygen as tolerated. 7. Continue nocturnal CPAP therapy as ordered. IMPRESSIONS: 1. Sepsis secondary to gram-negative cystitis and bacteremia Continue current supportive measures with broad-spectrum antibiotics. The patient did have a sputum culture dated July 13 by his PCP, which revealed Enterobacter. The patient does have gram-negative rods isolated from both blood and urine cultures. Repeat blood cultures are currently pending. The patient has remained afebrile and hemodynamically stable. 2. Acute on chronic hypoxemic respiratory failure with history of fibrosing NSIP with possible exacerbation/pulmonary infectious process Given that the patient recently had a positive sputum culture, his antibiotics will be continued as ordered. He reportedly has a baseline 10 L/min supplemental oxygen requirement. He will be continued on Imuran, with plans to treat him with high-dose IV Solu-Medrol for an additional 2 days. Continue scheduled bronchodilators. Wean supplemental oxygen as tolerated. 3. History of heart failure with preserved ejection fraction/pulmonary hypertension At the current time, the patient does not require the initiation of diuretics. 4. Hypertension/hyperlipidemia/neuropathy/diabetes mellitus/obstructive sleep apnea/GERD Complicates care, management, recovery and prognosis. Once the patient is transferred out of the medical intensive care unit, recommend that a consultation be placed to the patient's primary ginner, Dr. Pressley. Recommend continuing nocturnal CPAP therapy per home regimen. This note was generated with [employer] dictation software. It may contain incorrect words, spelling, and punctuation that were not noted in checking the note before signing. Code Visit Inpatient E&M: [id number] [id number]
--- NOTE | 2018-07-18 05:56 | PN_ITS ---
Subjective: The patient was seen and examined at the bedside this morning. Events from the last 24 hours have been reviewed. The patient is currently afebrile hemodynamically stable. He is tolerating nocturnal CPAP per home regimen. The patient was able to be weaned to 12 L/min last evening, prior to being placed on CPAP. Nursing staff does report that the patient desaturates avidly with very little activity. Blood glucose levels have been on the high side due to high dose steroids. The patient's basal insulin regimen was increased overnight. He remains on a high intensity sliding scale. Objective: The patient's most recent lab work, culture data and imaging studies have all been personally reviewed. Preliminary blood culture from July 16 was positive for gram-negative rods. 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 Respiratory viral panel was negative. Repeat blood cultures are currently pending. Sputum culture dated July 13 was positive for Enterobacter. General: Alert, Cooperative, No apparent distress, - - CPAP currently in place HEENT: Atraumatic, PERRLA, Normocephalic Oral: No Gingival or Mucosal Lesions/ Ulcerations Neck: Supple, No Nodes, Trachea Midline Lungs: No rhonchi, No wheeze, Diminished, Rales - Bibasilar Cardiovascular: Regular rate, Regular Rhythm, Normal S1, Normal S2 Abdomen: Bowel Sounds Present, Soft, Non Tender, Obese Extremities: No clubbing, No cyanosis, Edema Skin: - - No significant change from previous Musculoskeletal: No Tenderness to Palpation of Joints or Extremities, No Muscle Wasting Lymphatic: No Cervical, Supraclavicular, or Inguinal Adenopathy Neurological: Cranial nerves II-XII grossly intact, Neuro grossly intact Psych/Mental Status: Normal Affect, Appropriate Vital Signs Temp Pulse Resp BP Pulse Ox 36.6 C 76 16 106/68 100 07/18/18 04:42 07/18/18 04:42 07/18/18 04:42 07/18/18 04:42 07/18/18 04:42 Oxygen Flow Rate (L/min) 12 Oxygen Delivery Method CPAP Weight: 239 lb 13.807 oz Body Mass Index (BMI) 0.1 Intake and Output for Last 24 Hours 07/16/18 07/17/18 07/18/18 23:59 23:59 23:59 Intake Total 2028 / 2028 2579 / 2579 186.9 / 186.9 Output Total 500 / 500 2775 / 2775 700 / 700 Balance 1529 / 1529 -196 / -196 -513.1 / -513.1 Labs (Last 48 Hours) 07/16/18 07/16/18 07/16/18 14:07 14:07 14:07 WBC 16.8 H RBC 3.64 L Hgb 10.9 L Hct 34.0 L MCV 93.4 MCH 29.9 MCHC 32.1 RDW 15.9 H RDW Differential 54.2 H Plt Count 88 L MPV 10.0 Immature Gran % (Auto) 1.000 H Neut % (Auto) 87.4 H Lymph % (Auto) 4.5 L [place] % (Auto) 6.7 Eos % (Auto) 0.3 Baso % (Auto) 0.1 Absolute Neuts (auto) 14.6 H Absolute Lymphs (auto) 0.76 L Total Counted Not Reportable ESR Sodium 139 Potassium 4.6 Chloride 101 Carbon Dioxide 30.0 Anion Gap 8 BUN 20 H Creatinine 1.02 Estim Creat Clear Calc 56.81 Est GFR (MDRD) Af Amer 91 Est GFR (MDRD) Non-Af 75 BUN/Creatinine Ratio 19.6 Glucose 226 H Hemoglobin A1c Lactic Acid 1.4 Calcium 9.3 Phosphorus Magnesium Total Bilirubin 1.20 H AST 23 ALT 27 Alkaline Phosphatase 69 Troponin I < 0.015 C-React Prot Ext Range B-Natriuretic Peptide Total Protein 6.7 Albumin 3.0 L Globulin 3.7 Albumin/Globulin Ratio 0.8 L Urine Color Urine Clarity Urine pH Ur Specific [place] Urine Protein Urine Glucose (UA) Urine Ketones Urine Occult Blood Urine Nitrite Urine Bilirubin Urine Urobilinogen Ur Leukocyte Esterase Urine RBC Urine WBC Ur Squamous Epith Cells Amorphous Sediment Urine Bacteria Urine Mucus POC Glucose 07/16/18 07/16/18 07/16/18 14:07 14:07 14:07 WBC RBC Hgb Hct MCV MCH MCHC RDW RDW Differential Plt Count MPV Immature Gran % (Auto) Neut % (Auto) Lymph % (Auto) [place] % (Auto) Eos % (Auto) Baso % (Auto) Absolute Neuts (auto) Absolute Lymphs (auto) Total Counted ESR 65 H Sodium Potassium Chloride Carbon Dioxide Anion Gap BUN Creatinine Estim Creat Clear Calc Est GFR (MDRD) Af Amer Est GFR (MDRD) Non-Af BUN/Creatinine Ratio Glucose Hemoglobin A1c Lactic Acid Calcium Phosphorus Magnesium 1.9 Total Bilirubin AST ALT Alkaline Phosphatase Troponin I C-React Prot Ext Range 158.00 H B-Natriuretic Peptide 15.4 Total Protein Albumin Globulin Albumin/Globulin Ratio Urine Color Urine Clarity Urine pH Ur Specific [place] Urine Protein Urine Glucose (UA) Urine Ketones Urine Occult Blood Urine Nitrite Urine Bilirubin Urine Urobilinogen Ur Leukocyte Esterase Urine RBC Urine WBC Ur Squamous Epith Cells Amorphous Sediment Urine Bacteria Urine Mucus POC Glucose 07/16/18 07/16/18 07/16/18 14:15 14:55 17:56 WBC RBC Hgb Hct MCV MCH MCHC RDW RDW Differential Plt Count MPV Immature Gran % (Auto) Neut % (Auto) Lymph % (Auto) [place] % (Auto) Eos % (Auto) Baso % (Auto) Absolute Neuts (auto) Absolute Lymphs (auto) Total Counted ESR Sodium Potassium Chloride Carbon Dioxide Anion Gap BUN Creatinine Estim Creat Clear Calc Est GFR (MDRD) Af Amer Est GFR (MDRD) Non-Af BUN/Creatinine Ratio Glucose Hemoglobin A1c 10.0 H Lactic Acid Calcium Phosphorus Magnesium Total Bilirubin AST ALT Alkaline Phosphatase Troponin I C-React Prot Ext Range B-Natriuretic Peptide Total Protein Albumin Globulin Albumin/Globulin Ratio Urine Color Yellow Urine Clarity Sl Cldy Urine pH 6.0 Ur Specific [place] 1.020 Urine Protein 100 H Urine Glucose (UA) 50 H Urine Ketones Negative Urine Occult Blood 250 H Urine Nitrite Positive H Urine Bilirubin Negative Urine Urobilinogen Normal Ur Leukocyte Esterase 500 H Urine RBC 25-50 SEEN Urine WBC 50-100 SEEN Ur Squamous Epith Cells 0-5 SEEN Amorphous Sediment 1+ URATE Urine Bacteria 3+ Urine Mucus 0 SEEN POC Glucose 251 H 07/16/18 07/17/18 07/17/18 21:22 05:30 05:30 WBC 15.6 H RBC 3.27 L Hgb 10.2 L Hct 30.7 L MCV 93.9 MCH 31.2 MCHC 33.2 RDW 16.0 H RDW Differential 52.9 H Plt Count 97 L MPV 9.9 Immature Gran % (Auto) 0.600 Neut % (Auto) 90.9 H Lymph % (Auto) 2.8 L [place] % (Auto) 5.5 Eos % (Auto) 0.1 Baso % (Auto) 0.1 Absolute Neuts (auto) 14.2 H Absolute Lymphs (auto) 0.44 L Total Counted Not Reportable ESR Sodium 138 Potassium 4.7 Chloride 102 Carbon Dioxide 28.0 Anion Gap 8 BUN 18 Creatinine 0.96 Estim Creat Clear Calc 96.02 Est GFR (MDRD) Af Amer 97 Est GFR (MDRD) Non-Af 80 BUN/Creatinine Ratio 18.7 Glucose 257 H Hemoglobin A1c Lactic Acid Calcium 8.4 L Phosphorus 3.8 Magnesium 1.9 Total Bilirubin AST ALT Alkaline Phosphatase Troponin I C-React Prot Ext Range B-Natriuretic Peptide Total Protein Albumin Globulin Albumin/Globulin Ratio Urine Color Urine Clarity Urine pH Ur Specific [place] Urine Protein Urine Glucose (UA) Urine Ketones Urine Occult Blood Urine Nitrite Urine Bilirubin Urine Urobilinogen Ur Leukocyte Esterase Urine RBC Urine WBC Ur Squamous Epith Cells Amorphous Sediment Urine Bacteria Urine Mucus POC Glucose 336 H 07/17/18 07/17/18 07/17/18 08:44 11:32 17:31 WBC RBC Hgb Hct MCV MCH MCHC RDW RDW Differential Plt Count MPV Immature Gran % (Auto) Neut % (Auto) Lymph % (Auto) [place] % (Auto) Eos % (Auto) Baso % (Auto) Absolute Neuts (auto) Absolute Lymphs (auto) Total Counted ESR Sodium Potassium Chloride Carbon Dioxide Anion Gap BUN Creatinine Estim Creat Clear Calc Est GFR (MDRD) Af Amer Est GFR (MDRD) Non-Af BUN/Creatinine Ratio Glucose Hemoglobin A1c Lactic Acid Calcium Phosphorus Magnesium Total Bilirubin AST ALT Alkaline Phosphatase Troponin I C-React Prot Ext Range B-Natriuretic Peptide Total Protein Albumin Globulin Albumin/Globulin Ratio Urine Color Urine Clarity Urine pH Ur Specific [place] Urine Protein Urine Glucose (UA) Urine Ketones Urine Occult Blood Urine Nitrite Urine Bilirubin Urine Urobilinogen Ur Leukocyte Esterase Urine RBC Urine WBC Ur Squamous Epith Cells Amorphous Sediment Urine Bacteria Urine Mucus POC Glucose 268 H 253 H 410 H 07/17/18 21:01 WBC RBC Hgb Hct MCV MCH MCHC RDW RDW Differential Plt Count MPV Immature Gran % (Auto) Neut % (Auto) Lymph % (Auto) [place] % (Auto) Eos % (Auto) Baso % (Auto) Absolute Neuts (auto) Absolute Lymphs (auto) Total Counted ESR Sodium Potassium Chloride Carbon Dioxide Anion Gap BUN Creatinine Estim Creat Clear Calc Est GFR (MDRD) Af Amer Est GFR (MDRD) Non-Af BUN/Creatinine Ratio Glucose Hemoglobin A1c Lactic Acid Calcium Phosphorus Magnesium Total Bilirubin AST ALT Alkaline Phosphatase Troponin I C-React Prot Ext Range B-Natriuretic Peptide Total Protein Albumin Globulin Albumin/Globulin Ratio Urine Color Urine Clarity Urine pH Ur Specific [place] Urine Protein Urine Glucose (UA) Urine Ketones Urine Occult Blood Urine Nitrite Urine Bilirubin Urine Urobilinogen Ur Leukocyte Esterase Urine RBC Urine WBC Ur Squamous Epith Cells Amorphous Sediment Urine Bacteria Urine Mucus POC Glucose 478 H* Microbiology 07/16/18 14:55 Urine, Clean Catch Urine Culture - 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 Electronically Signed: Saad Berry MD at 15:12 EST Tel [phone], Service support , Cervical Spine CT 07/16/18 13:40 IMPRESSION: Multilevel degenerative changes, as described above. Electronically Signed: Saad Berry MD at 15:24 EST Tel [phone], Service support , Chest X-Ray 07/16/18 14:35 IMPRESSION: Central vascular congestion and diffuse pulmonary edema with low lung volumes. Electronically Signed: Ton Daly MD at 14:53 EST Tel , Service support , Medical Necessity - Tobacco Use Smoking Status: Former smoker Tobacco Use: Non-smoker Assessment/Plan All Active Problems Pyelonephritis (Acute) Sepsis (Acute) Acute pancreatitis (Resolved) Pneumonia due to Streptococcus pneumoniae (Resolved) RECOMMENDATIONS: 1. Continue scheduled bronchodilators 2. Continue high-dose IV Solu-Medrol for an additional 2 days. 3. Continue Zosyn. 4. Continue Imuran as ordered. 5. Continue insulin as ordered. This may require additional upward titration, depending on the patient's blood sugar recheck. 6. Wean supplemental oxygen as tolerated. 7. Continue nocturnal CPAP therapy as ordered. IMPRESSIONS: 1. Sepsis secondary to gram-negative cystitis and bacteremia Continue current supportive measures with broad-spectrum antibiotics. The patient did have a sputum culture dated July 13 by his PCP, which revealed Enterobacter. The patient does have gram-negative rods isolated from both blood and urine cultures. Repeat blood cultures are currently pending. The patient has remained afebrile and hemodynamically stable. 2. Acute on chronic hypoxemic respiratory failure with history of fibrosing NSIP with possible exacerbation/pulmonary infectious process Given that the patient recently had a positive sputum culture, his antibiotics will be continued as ordered. He reportedly has a baseline 10 L/min supplemental oxygen requirement. He will be continued on Imuran, with plans to treat him with high-dose IV Solu-Medrol for an additional 2 days. Continue scheduled bronchodilators. Wean supplemental oxygen as tolerated. 3. History of heart failure with preserved ejection fraction/pulmonary hy pertension At the current time, the patient does not require the initiation of diuretics. 4. Hypertension/hyperlipidemia/neuropathy/diabetes mellitus/obstructive sleep apnea/GERD Complicates care, management, recovery and prognosis. Once the patient is transferred out of the medical intensive care unit, recommend that a consultation be placed to the patient's primary data lead, Dr. Pressley. Recommend continuing nocturnal CPAP therapy per home regimen. This note was generated with [employer] dictation software. It may contain incorrect words, spelling, and punctuation that were not noted in checking the note before signing. Code Visit Inpatient E&M: 40723 [facility] L3
[2018-07-18] MEDS: Ipratropium/Albuterol Sulfate 3 ML AMPUL.NEB INHALATION ×5 (06:59→22:28)
[2018-07-18 07:21] LABS: Bedside Glucose 349 mg/dL (70-110)
--- NOTE | 2018-07-18 07:56 | PCM.PN.HOSP ---
Patient Problems: Active and Suspected Problems Pyelonephritis (Acute) Sepsis (Acute) Urine retention (Suspected) Subjective: Patient was seen and examined. No acute events overnight. Patient was moved from the bed to chair with desaturation to the 50s. Took about 5 minutes to recover back to his baseline. Was on 12 L of oxygen with CPAP overnight. Denies any new complaints. Objective: Physical Exam General: Alert, Oriented x3, Cooperative, No apparent distress, obese, on 12 L of oxygen HEENT: PERRLA, EOMI, Normocephalic Oral: No Gingival or Mucosal Lesions/ Ulcerations, Dry Mucosa Neck: Supple, No Nodes, No Nuchal Rigidity, Trachea Midline Lungs: Diminished, no wheezes or rales Cardiovascular: Regular Rhythm, Normal S1, Normal S2, No murmurs, No rub noted, No Gallop, Tachycardic Abdomen: Bowel Sounds Present, Soft, Obese, Tender - in the suprapubic area Extremities: TRace bilateral edema, diminished Peripheral Pulses Skin: No rashes, No breakdown, - - he has a small abrasion and ecchymosis of the Left knee from recent fall Musculoskeletal: No Muscle Wasting, Arthritic Changes Neurological: Cranial nerves II-XII grossly intact, Neuro grossly intact Psych/Mental Status: Normal Affect, Appropriate Vitals/I&O's: Vital Signs Temp Pulse Resp BP Pulse Ox 97.8 F 83 20 H 106/68 100 07/18/18 04:42 07/18/18 06:59 07/18/18 06:59 07/18/18 04:42 07/18/18 04:42 Oxygen Flow Rate (L/min) 10 Oxygen Delivery Method Nasal Cannula Weight: 108.8 kg Body Mass Index (BMI) 0.1 Intake and Output for Last 24 Hours 07/16/18 07/17/18 07/18/18 23:59 23:59 23:59 Intake Total 2028 / 2028 2579 / 2579 186.9 / 186.9 Output Total 500 / 500 2775 / 2775 700 / 700 Balance 1529 / 1529 -196 / -196 -513.1 / -513.1 Microbiology Past 72 Hours 07/16/18 14:55 Urine, Clean Catch Urine Culture - Preliminary GNR lactose per diem clerk 07/16/18 14:15 Blood Culture (Wb) - Left Wrist Blood Culture - Preliminary 07/17/18 01:15 Mucosa - Nasopharyngeal Respiratory Panel (PCR) - Final Laboratory Results 07/17/18 08:44: POC Glucose 268 H 07/17/18 11:32: POC Glucose 253 H 07/17/18 17:31: POC Glucose 410 H 07/17/18 21:01: POC Glucose 478 H* 07/18/18 07:15: POC Glucose 349 H Current Medications Acetaminophen (Tylenol) 650 mg PO Q6H PRN PRN PRN Reason: Mild Pain (scale 0-3)/T>100.7 Albuterol Sulfate (Ventolin Aerosols) 2.5 mg INHALATION Q2H PRN PRN PRN Reason: dyspnea, wheezing Last Admin: 07/17/18 23:10 Dose: 2.5 mg Albuterol/Ipratropium (Duoneb) 3 ml INHALATION Q4HWA.RT [facility] Last Admin: 07/18/18 06:59 Dose: 3 ml Ascorbic Acid (Vitamin C) 500 mg PO DAILY@0800 [facility] Last Admin: 07/17/18 08:45 Dose: 500 mg Aspirin (Ecotrin) 81 mg PO DAILY@0800 [facility] Last Admin: 07/17/18 08:44 Dose: 81 mg Atorvastatin Calcium (Lipitor) 10 mg PO QHS [facility] Last Admin: 07/17/18 21:05 Dose: 10 mg Azathioprine (Imuran) 150 mg PO DAILYCM [facility] Last Admin: 07/17/18 08:45 Dose: 150 mg Bisacodyl (Dulcolax) 5 mg PO DAILY PRN PRN PRN Reason: Constipation Enoxaparin Sodium (Lovenox) 40 mg SC DAILY@1000 [facility] Last Admin: 07/17/18 10:16 Dose: 40 mg Famotidine (Pepcid) 20 mg PO BID [facility] Last Admin: 07/17/18 21:05 Dose: 20 mg Gabapentin (Neurontin) 600 mg PO TIDCM [facility] Last Admin: 07/17/18 17:33 Dose: 600 mg Sodium Chloride () 250 mls @ 15 mls/hr IV .[id number] PRN PRN Reason: SALINE FLUSH Piperacillin Sod/Tazobactam Sod (Zosyn) 3.375 gm in 50 mls @ 12.5 mls/hr IV Q8 [facility] Last Admin: 07/18/18 05:23 Dose: 12.5 mls/hr Methylprednisolone 1,000 mg/ (Sodium Chloride) 116 mls @ 100 mls/hr IV DAILY [facility] Stop: 07/20/18 10:01 Last Admin: 07/17/18 10:17 Dose: 100 mls/hr Insulin Glargine (Lantus (Bkc)) 20 units SC QHS [facility] Last Admin: 07/17/18 21:30 Dose: 20 units Insulin Human Lispro (Humalog Kwikpen (Bkc)) 4 unit SC TIDAC [facility] Last Admin: 07/17/18 17:33 Dose: 4 u Insulin Human Lispro (Humalog Kwikpen (Bkc)) 0 unit SQ ACHS [facility]; Protocol Last Admin: 07/17/18 21:27 Dose: Not Given Lisinopril (Zestril) 10 mg PO DAILY [facility] Last Admin: 07/17/18 10:16 Dose: 10 mg Lorazepam (Ativan) 0.5 mg IV Q4H PRN PRN PRN Reason: anxiety with BIPAP Last Admin: 07/17/18 01:28 Dose: 0.5 mg Magnesium Hydroxide (Milk Of Magnesia) 30 ml PO DAILY PRN PRN Reason: Constipation Magnesium Oxide (Mag-Ox 400) 400 mg PO BID [facility] Last Admin: 07/17/18 21:05 Dose: 400 mg Multivitamins/Minerals (Multivitamin With Minerals) 1 tablet PO DAILY@0800 [facility] Last Admin: 07/17/18 08:45 Dose: 1 tablet Oxycodone HCl (Oxyir) 5 mg PO Q4H PRN PRN PRN Reason: Moderate Pain (pain scale 4-5) Potassium Chloride (K-Dur) 20 meq PO BID [facility] Last Admin: 07/17/18 21:05 Dose: 20 meq Prochlorperazine Edisylate (Compazine Iv) 5 - 10 mg IV Q6H PRN PRN PRN Reason: Nausea/Vomiting Sodium Chloride () 5 - 15 ml IV UD PRN PRN Reason: SALINE FLUSH Last Admin: 07/17/18 08:37 Dose: 10 ml Tamsulosin HCl (Flomax) 0.4 mg PO DAILY@0830 [facility] Last Admin: 07/17/18 08:45 Dose: 0.4 mg Medical Necessity - Tobacco Use Smoking Status: Former smoker Tobacco Use: Non-smoker Assessment/Plan All Active Problems Pyelonephritis (Acute) Sepsis (Acute) Acute pancreatitis (Resolved) Pneumonia due to Streptococcus pneumoniae (Resolved) 78 year-old male with multiple comorbidities including pulmonary fibrosis, with chronic hypoxic respiratory failure on 10 L of oxygen at home, follows with Dr. Siegel, comes in with complaints of urine incontinence, generalized weakness and a 1 day history of fall. 1. Sepsis secondary to suspected complicated Serratia UTI/gram-negative stacy bacteremia, blood cultures growing gram-negative stacy, repeat blood cultures are pending, urine cultures growing Serratia, on Zosyn (day 3 of antibiotics) Generally been afebrile except for some low-grade temperature first coat sander(100.1F), will de-escalate antibiotics to ceftriaxone IV. 2. Acute on chronic respiratory failure secondary to acute exacerbation of pulmonary fibrosis, remains still on high oxygen, respiratory panel is negative, recent sputum cultures have been positive for Enterobacter. Discussed with servomechanism designer, patient is immunosuppressed, on IV Solu-Medrol high-dose for 3 days, continue with breathing treatments, continued oxygen, continue to wean off oxygen. 3. Suspected urinary retention, history of BPH, on Flomax, will increase Flomax to 0.8 mg p.o. daily, continue Lynn catheter, will consider removal of Lynn catheter tomorrow 4. Type II DM, sugars are uncontrolled, this will be uncontrolled for a while secondary to high-dose steroids, on Lantus 20 units nightly, as well as 4 units lispro 3 times daily, as well as high-dose insulin sliding scale. We will increase pre-meal insulin to 6 units 3 times daily, continue with high-dose insulin sliding scale. 5. Hypertension, controlled, continue on lisinopril, continue to monitor vitals 6. Hyperlipidemia, on statin 7. Morbid obesity, BMI 36.5, diet and exercise is recommended for later 8. DVT PPx- lovenox SC 9. CODE STATUS: Full code Code Visit Inpatient E&M: 66108 Subs Hosp L2
[2018-07-18] MEDS: Insulin Lispro 100 UNIT/ML INSULN.PEN SC (08:22)
[2018-07-18] MEDS: Insulin Lispro 100 UNIT/ML INSULN.PEN SQ ×4 (08:23→21:26)
[2018-07-18] MEDS: Gabapentin 600 MG Tablet PO ×3 (08:25→17:26)
[2018-07-18] MEDS: Ascorbic Acid 500 MG Tablet PO (08:25)
[2018-07-18] MEDS: azaTHIOprine 50 MG Tablet 150 MG PO (08:26)
[2018-07-18] MEDS: Aspirin E.C. 81 MG Tablet PO (08:26)
[2018-07-18] MEDS: Tamsulosin HCl 0.4 MG Capsule PO (08:27)
[2018-07-18] MEDS: Multivitamins,Ther W-Minerals Tablet 1 TABLET PO (08:27)
[2018-07-18] MEDS: Ceftriaxone 1 GM/50 ML BAG IV (10:12)
[2018-07-18] MEDS: Magnesium Oxide 400 MG Tablet PO ×2 (10:12→21:25)
[2018-07-18] MEDS: Famotidine 20 MG Tablet PO ×2 (10:13→21:25)
[2018-07-18] MEDS: Lisinopril 10 MG Tablet PO (10:13)
[2018-07-18] MEDS: Enoxaparin 40 MG/0.4 ML Syringe SC (10:13)
[2018-07-18] MEDS: Insulin Lispro 100 UNIT/ML INSULN.PEN 6 UNIT SC ×2 (13:12→17:25)
[2018-07-18 13:15] LABS: Bedside Glucose 443 mg/dL (70-110)
[2018-07-18] MEDS: Acetaminophen 325 MG Tablet 650 MG PO (13:24)
[2018-07-18 17:30] LABS: Bedside Glucose 411 mg/dL (70-110)
[2018-07-18] MEDS: Atorvastatin Calcium 10 MG Tablet PO (21:25)
[2018-07-18 21:40] LABS: Bedside Glucose 394 mg/dL (70-110)
[2018-07-19] VITALS (17 sets, daily range): BP systolic 103–135; BP diastolic 52–79; PULSE 71–122; RESP 18–36; TEMP 36.6–36.9; O2SAT 92–98
--- NOTE | 2018-07-19 06:26 | PCM.PN.INT ---
Subjective: The patient was seen and examined at the bedside this morning. Events from the last 24 hours have been reviewed. The patient is currently afebrile, hemodynamically stable and maintaining appropriate oxygen saturations on his regularly prescribed nocturnal CPAP therapy. The patient was able to be weaned down to his baseline 10 L/min supplemental oxygen requirement yesterday. He is done well clinically following transfer out of the intensive care unit. Objective: The patient's most recent lab work, culture data and imaging studies have all been personally reviewed. Preliminary blood culture from July 16 was positive for gram-negative rods. Urine cultures positive for gram-negative rods, lactose centrifugal wax molder. Respiratory viral panel was negative. Repeat blood cultures are currently pending. Sputum culture dated July 13 was positive for Enterobacter. General: Alert, Cooperative, No apparent distress HEENT: Atraumatic, PERRLA, Normocephalic Oral: No Gingival or Mucosal Lesions/ Ulcerations Neck: Supple, No Nodes, Trachea Midline Lungs: Diminished, Rales - Bibasilar, unchanged from previous. Cardiovascular: Regular rate, Regular Rhythm, Normal S1, Normal S2 Abdomen: Bowel Sounds Present, Soft, Non Tender, Obese Extremities: No clubbing, No cyanosis, Edema Skin: - - No significant change from previous Musculoskeletal: No Tenderness to Palpation of Joints or Extremities, No Muscle Wasting Lymphatic: No Cervical, Supraclavicular, or Inguinal Adenopathy Neurological: Cranial nerves II-XII grossly intact, Neuro grossly intact Psych/Mental Status: Normal Affect, Appropriate Vital Signs Temp Pulse Resp BP Pulse Ox 36.6 C 75 25 H 117/79 98 07/19/18 02:03 07/19/18 04:32 07/19/18 04:32 07/19/18 02:03 07/19/18 04:32 Oxygen Flow Rate (L/min) 10 Oxygen Delivery Method CPAP Weight: 241 lb 2.971 oz Body Mass Index (BMI) 0.1 Intake and Output for Last 24 Hours 07/17/18 07/18/18 07/19/18 23:59 23:59 23:59 Intake Total 2579 / 2579 2451.2 / 2451.2 120 / 120 Output Total 2775 / 2775 2625 / 2625 875 / 875 Balance -196 / -196 -173.8 / -173.8 -755 / -755 Labs (Last 48 Hours) 07/17/18 07/17/18 07/17/18 08:44 11:32 17:31 WBC RBC Hgb Hct MCV MCH MCHC RDW RDW Differential Plt Count Neut % (Auto) Absolute Neuts (auto) Total Counted Sodium Potassium Chloride Carbon Dioxide Anion Gap BUN Creatinine Est GFR (MDRD) Af Amer Est GFR (MDRD) Non-Af BUN/Creatinine Ratio Glucose Calcium POC Glucose 268 H 253 H 410 H 07/17/18 07/18/18 07/18/18 21:01 07:15 13:09 WBC RBC Hgb Hct MCV MCH MCHC RDW RDW Differential Plt Count Neut % (Auto) Absolute Neuts (auto) Total Counted Sodium Potassium Chloride Carbon Dioxide Anion Gap BUN Creatinine Est GFR (MDRD) Af Amer Est GFR (MDRD) Non-Af BUN/Creatinine Ratio Glucose Calcium POC Glucose 478 H* 349 H 443 H 07/18/18 07/18/18 07/19/18 17:24 21:21 05:51 WBC Pending RBC Pending Hgb Pending Hct Pending MCV Pending MCH Pending MCHC Pending RDW Pending RDW Differential Pending Plt Count Pending Neut % (Auto) Pending Absolute Neuts (auto) Pending Total Counted Pending Sodium Potassium Chloride Carbon Dioxide Anion Gap BUN Creatinine Est GFR (MDRD) Af Amer Est GFR (MDRD) Non-Af BUN/Creatinine Ratio Glucose Calcium POC Glucose 411 H 394 H 07/19/18 05:51 WBC RBC Hgb Hct MCV MCH MCHC RDW RDW Differential Plt Count Neut % (Auto) Absolute Neuts (auto) Total Counted Sodium Pending Potassium Pending Chloride Pending Carbon Dioxide Pending Anion Gap Pending BUN Pending Creatinine Pending Est GFR (MDRD) Af Amer Pending Est GFR (MDRD) Non-Af Pending BUN/Creatinine Ratio Pending Glucose Pending Calcium Pending POC Glucose Microbiology 07/16/18 14:07 Blood Culture (Wb) - Anticubital Right Blood Culture - Preliminary No growth in 48 hours. 07/16/18 14:15 Blood Culture (Wb) - Left Wrist Blood Culture - Preliminary Gram negative stacy 07/16/18 14:55 Urine, Clean Catch Urine Culture - Final Serratia marcescens 07/17/18 01:15 Mucosa - Nasopharyngeal Respiratory Panel (PCR) - Final Clinical Impression(s) from Imaging Studies Brain CT 07/16/18 13:39 IMPRESSION: Chronic involutional changes of the brain. Electronically Signed: Saad Berry MD at 15:12 EST Tel [phone], Service support , Cervical Spine CT 07/16/18 13:40 IMPRESSION: Multilevel degenerative changes, as described above. Electronically Signed: Saad Berry MD at 15:24 EST Tel [phone], Service support , Chest X-Ray 07/16/18 14:35 IMPRESSION: Central vascular congestion and diffuse pulmonary edema with low lung volumes. Electronically Signed: Ton Daly MD at 14:53 EST Tel , Service support , Medical Necessity - Tobacco Use Smoking Status: Former smoker Tobacco Use: Non-smoker Assessment/Plan All Active Problems Pyelonephritis (Acute) Sepsis (Acute) Acute pancreatitis (Resolved) Pneumonia due to Streptococcus pneumoniae (Resolved) RECOMMENDATIONS: 1. Continue scheduled bronchodilators 2. Continue high-dose IV Solu-Medrol for 1 additional day and then transition to prednisone 40 mg daily. 3. Continue antibiotics 4. Continue Imuran as ordered. 5. Continue insulin as ordered. This may require additional upward titration, depending on the patient's blood sugar recheck. 6. Wean supplemental oxygen as tolerated. 7. Continue nocturnal CPAP therapy as ordered. IMPRESSIONS: 1. Sepsis secondary to gram-negative cystitis and bacteremia Continue current supportive measures with broad-spectrum antibiotics. The patient did have a sputum culture dated July 13 by his PCP, which revealed Enterobacter. The patient does have gram-negative rods isolated from both blood and urine cultures. Repeat blood cultures are currently pending. The patient has remained afebrile and hemodynamically stable. 2. Acute on chronic hypoxemic respiratory failure with history of fibrosing NSIP with possible exacerbation/pulmonary infectious process Given that the patient recently had a positive sputum culture, his antibiotics will be continued as ordered. He reportedly has a baseline 10 L/min supplemental oxygen requirement. He will be continued on Imuran, with plans to treat him with high-dose IV Solu-Medrol for an additional 1 day, with plans to transition to prednisone 40 mg daily thereafter. Continue scheduled bronchodilators. Wean supplemental oxygen as tolerated. 3. History of heart failure with preserved ejection fraction/pulmonary hypertension At the current time, the patient does not require the initiation of diuretics. 4. Hypertension/hyperlipidemia/neuropathy/diabetes mellitus/obstructive sleep apnea/GERD Complicates care, management, recovery and prognosis. Once the patient is transferred out of the medical intensive care unit, recommend that a consultation be placed to the patient's primary creative services director, Dr. Pressley. Recommend continuing nocturnal CPAP therapy per home regimen. This note was generated with [employer] dictation software. It may contain incorrect words, spelling, and punctuation that were not noted in checking the note before signing. DISPOSITION: At this time, given the patient's overall lack of ICU needs, will sign off. Please place consultation to the patient's primary creative services director, Dr. Pressley, for ongoing management. Code Visit Inpatient E&M: 44556 [facility] Hosp L2
--- NOTE | 2018-07-19 06:29 | PN_ITS ---
Subjective: The patient was seen and examined at the bedside this morning. Events from the last 24 hours have been reviewed. The patient is currently afebrile, hemodynamically stable and maintaining appropriate oxygen saturations on his regularly prescribed nocturnal CPAP therapy. The patient was able to be weaned down to his baseline 10 L/min supplemental oxygen requirement yesterday. He is done well clinically following transfer out of the intensive care unit. Objective: The patient's most recent lab work, culture data and imaging studies have all been personally reviewed. Preliminary blood culture from July 16 was positive for gram-negative rods. 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 Respiratory viral panel was negative. Repeat blood cultures are currently pending. Sputum culture dated July 13 was positive for Enterobacter. General: Alert, Cooperative, No apparent distress HEENT: Atraumatic, PERRLA, Normocephalic Oral: No Gingival or Mucosal Lesions/ Ulcerations Neck: Supple, No Nodes, Trachea Midline Lungs: Diminished, Rales - Bibasilar, unchanged from previous. Cardiovascular: Regular rate, Regular Rhythm, Normal S1, Normal S2 Abdomen: Bowel Sounds Present, Soft, Non Tender, Obese Extremities: No clubbing, No cyanosis, Edema Skin: - - No significant change from previous Musculoskeletal: No Tenderness to Palpation of Joints or Extremities, No Muscle Wasting Lymphatic: No Cervical, Supraclavicular, or Inguinal Adenopathy Neurological: Cranial nerves II-XII grossly intact, Neuro grossly intact Psych/Mental Status: Normal Affect, Appropriate Vital Signs Temp Pulse Resp BP Pulse Ox 36.6 C 75 25 H 117/79 98 07/19/18 02:03 07/19/18 04:32 07/19/18 04:32 07/19/18 02:03 07/19/18 04:32 Oxygen Flow Rate (L/min) 10 Oxygen Delivery Method CPAP Weight: 241 lb 2.971 oz Body Mass Index (BMI) 0.1 Intake and Output for Last 24 Hours 07/17/18 07/18/18 07/19/18 23:59 23:59 23:59 Intake Total 2579 / 2579 2451.2 / 2451.2 120 / 120 Output Total 2775 / 2775 2625 / 2625 875 / 875 Balance -196 / -196 -173.8 / -173.8 -755 / -755 Labs (Last 48 Hours) 07/17/18 07/17/18 07/17/18 08:44 11:32 17:31 WBC RBC Hgb Hct MCV MCH MCHC RDW RDW Differential Plt Count Neut % (Auto) Absolute Neuts (auto) Total Counted Sodium Potassium Chloride Carbon Dioxide Anion Gap BUN Creatinine Est GFR (MDRD) Af Amer Est GFR (MDRD) Non-Af BUN/Creatinine Ratio Glucose Calcium POC Glucose 268 H 253 H 410 H 07/17/18 07/18/18 07/18/18 21:01 07:15 13:09 WBC RBC Hgb Hct MCV MCH MCHC RDW RDW Differential Plt Count Neut % (Auto) Absolute Neuts (auto) Total Counted Sodium Potassium Chloride Carbon Dioxide Anion Gap BUN Creatinine Est GFR (MDRD) Af Amer Est GFR (MDRD) Non-Af BUN/Creatinine Ratio Glucose Calcium POC Glucose 478 H* 349 H 443 H 07/18/18 07/18/18 07/19/18 17:24 21:21 05:51 WBC Pending RBC Pending Hgb Pending Hct Pending MCV Pending MCH Pending MCHC Pending RDW Pending RDW Differential Pending Plt Count Pending Neut % (Auto) Pending Absolute Neuts (auto) Pending Total Counted Pending Sodium Potassium Chloride Carbon Dioxide Anion Gap BUN Creatinine Est GFR (MDRD) Af Amer Est GFR (MDRD) Non-Af BUN/Creatinine Ratio Glucose Calcium POC Glucose 411 H 394 H 07/19/18 05:51 WBC RBC Hgb Hct MCV MCH MCHC RDW RDW Differential Plt Count Neut % (Auto) Absolute Neuts (auto) Total Counted Sodium Pending Potassium Pending Chloride Pending Carbon Dioxide Pending Anion Gap Pending BUN Pending Creatinine Pending Est GFR (MDRD) Af Amer Pending Est GFR (MDRD) Non-Af Pending BUN/Creatinine Ratio Pending Glucose Pending Calcium Pending POC Glucose Microbiology 07/16/18 14:07 Blood Culture (Wb) - Anticubital Right Blood Culture - Preliminary No growth in 48 hours. 07/16/18 14:15 Blood Culture (Wb) - Left Wrist Blood Culture - Preliminary Gram negative stacy 07/16/18 14:55 Urine, Clean Catch Urine Culture - Final Serratia marcescens 07/17/18 01:15 Mucosa - Nasopharyngeal Respiratory Panel (PCR) - Final Clinical Impression(s) from Imaging Studies Brain CT 07/16/18 13:39 IMPRESSION: Chronic involutional changes of the brain. Electronically Signed: Saad Berry MD at 15:12 EST Tel [phone], Service support , Cervical Spine CT 07/16/18 13:40 IMPRESSION: Multilevel degenerative changes, as described above. Electronically Signed: Saad Berry MD at 15:24 EST Tel [phone], Service support , Chest X-Ray 07/16/18 14:35 IMPRESSION: Central vascular congestion and diffuse pulmonary edema with low lung volumes. Electronically Signed: Ton Daly MD at 14:53 EST Tel , Service support , Medical Necessity - Tobacco Use Smoking Status: Former smoker Tobacco Use: Non-smoker Assessment/Plan All Active Problems Pyelonephritis (Acute) Sepsis (Acute) Acute pancreatitis (Resolved) Pneumonia due to Streptococcus pneumoniae (Resolved) RECOMMENDATIONS: 1. Continue scheduled bronchodilators 2. Continue high-dose IV Solu-Medrol for 1 additional day and then transition to prednisone 40 mg daily. 3. Continue antibiotics 4. Continue Imuran as ordered. 5. Continue insulin as ordered. This may require additional upward titration, depending on the patient's blood sugar recheck. 6. Wean supplemental oxygen as tolerated. 7. Continue nocturnal CPAP therapy as ordered. IMPRESSIONS: 1. Sepsis secondary to gram-negative cystitis and bacteremia Continue current supportive measures with broad-spectrum antibiotics. The patient did have a sputum culture dated July 13 by his PCP, which revealed Enterobacter. The patient does have gram-negative rods isolated from both blood and urine cultures. Repeat blood cultures are currently pending. The patient has remained afebrile and hemodynamically stable. 2. Acute on chronic hypoxemic respiratory failure with history of fibrosing NSIP with possible exacerbation/pulmonary infectious process Given that the patient recently had a positive sputum culture, his antibiotics will be continued as ordered. He reportedly has a baseline 10 L/min supplemental oxygen requirement. He will be continued on Imuran, with plans to treat him with high-dose IV Solu-Medrol for an additional 1 day, with plans to transition to prednisone 40 mg daily thereafter. Continue scheduled bronchodilators. Wean supplemental oxygen as tolerated. 3. History of heart failure with preserved ejection fraction/pulmonary hypertension At the current time, the patient does not require the initiation of diuretics. 4. Hypertension/hyperlipidemia/neuropathy/diabetes mellitus/obstructive sleep apnea/GERD Complicates care, management, recovery and prognosis. Once the patient is transferred out of the medical intensive care unit, recommend that a consultation be placed to the patient's primary inspector penetrant, Dr. Pressley. R ecommend continuing nocturnal CPAP therapy per home regimen. This note was generated with [employer] dictation software. It may contain incorrect words, spelling, and punctuation that were not noted in checking the note before signing. DISPOSITION: At this time, given the patient's overall lack of ICU needs, will sign off. Please place consultation to the patient's primary inspector penetrant, Dr. Pressley, for ongoing management. Code Visit Inpatient E&M: 84759 Subs Hosp L2
[2018-07-19 06:40] LABS: Absolute Lymphocyte Count 0.25 X10^3/ul (0.83-4.51); Absolute Neutrophil Count 10.4 X10^3/uL (2.0-7.7); Differential Indicated SCAN CRITERIA MET; Hematocrit 28.8 % (40-54); Hemoglobin 9.4 g/dl (13.0-16.5); Lymphocyte # 0.25 X10^3/ul (4.0); Lymphocyte % 2.3 % (19-41); Mean Corp Hgb Conc 32.6 g/gl (32-36); Mean Corpuscular Hgb 30.3 pg (27.0-32.0); Mean Corpuscular Volume 92.9 fL (80-94); Mean Platelet Vol. 10.3 fl (6.2-12.0); Monocyte# 0.39 X10^3/uL; Monocyte% 3.5 % (0-10); Neutrophil # 10.42 X10^3/uL (2.7-7.7); Neutrophil % 93.7 % (47-70); POSITIVE COUNT NO; POSITIVE DIFFERENTIAL YES; POSITIVE MORPHOLOGY NO; Platelet Count 98 K/mm3 (150-450); RBC Distribution Width SD 49.7 fl (35.1-43.9); White Blood Count 11.1 K/mm3 (4.4-11.0)
[2018-07-19 06:58] LABS: Anion Gap 10 (5-15); BUN 29 mg/dL (7-18); BUN/Creat Ratio 31.1 RATIO (10-20); Calcium,Total 8.9 mg/dL (8.5-10.1); Chloride 104 mmol/L (98-107); Creatinine, Serum 0.93 mg/dL (0.70-1.30); EST Glomerular Filtration Rate 83 mL/min (>60); Est Glom Filt Rate - Afr Amer 100 mL/min (>60); Estimated Creatinine Clearance 62.31 ml/min; Glucose 289 mg/dL (74-106); Potassium 4.5 mmol/L (3.5-5.1); Sodium Level 142 mmol/L (136-145)
[2018-07-19] MEDS: Aspirin E.C. 81 MG Tablet PO (07:00)
[2018-07-19] MEDS: Multivitamins,Ther W-Minerals Tablet 1 TABLET PO (07:00)
[2018-07-19] MEDS: Tamsulosin HCl 0.4 MG Capsule 0.8 MG PO (07:00)
[2018-07-19] MEDS: Gabapentin 600 MG Tablet PO ×3 (07:00→17:52)
[2018-07-19] MEDS: azaTHIOprine 50 MG Tablet 150 MG PO (07:00)
[2018-07-19] MEDS: Ascorbic Acid 500 MG Tablet PO (07:00)
[2018-07-19] MEDS: Ipratropium/Albuterol Sulfate 3 ML AMPUL.NEB INHALATION ×2 (07:06→10:46)
[2018-07-19 07:15] LABS: Bedside Glucose 290 mg/dL (70-110)
[2018-07-19] MEDS: Insulin Lispro 100 UNIT/ML INSULN.PEN SQ ×4 (08:08→21:34)
[2018-07-19] MEDS: Insulin Lispro 100 UNIT/ML INSULN.PEN 6 UNIT SC ×3 (08:09→17:52)
--- NOTE | 2018-07-19 09:12 | PN_ITS ---
Patient Problems: Active and Suspected Problems Pyelonephritis (Acute) Sepsis (Acute) Urine retention (Suspected) Subjective: Patient seen and examined. Complains of persistent cough. No fever or chills. On 10L oxygen. No worsening SOB. No acute events overnight. Objective: Physical Exam General: Alert, Oriented x3, Cooperative, No apparent distress, obese, on 10 L of oxygen HEENT: PERRLA, EOMI, Normocephalic Oral: No Gingival or Mucosal Lesions/ Ulcerations, Dry Mucosa Neck: Supple, No Nodes, No Nuchal Rigidity, Trachea Midline Lungs: Diminished, no wheezes or rales Cardiovascular: Regular Rhythm, Normal S1, Normal S2, No murmurs, No rub noted, No Gallop, Tachycardic Abdomen: Bowel Sounds Present, Soft, Obese, Tender - in the suprapubic area Extremities: TRace bilateral edema, diminished Peripheral Pulses Skin: No rashes, No breakdown, - - he has a small abrasion and ecchymosis of the Left knee from recent fall Musculoskeletal: No Muscle Wasting, Arthritic Changes Neurological: Cranial nerves II-XII grossly intact, Neuro grossly intact Psych/Mental Status: Normal Affect, Appropriate Vitals/I&O's: Vital Signs Temp Pulse Resp BP Pulse Ox 98.2 F 94 22 H 108/60 96 07/19/18 07:10 07/19/18 07:53 07/19/18 07:10 07/19/18 07:10 07/19/18 07:10 Oxygen Flow Rate (L/min) 10 Oxygen Delivery Method Nasal Cannula Weight: 109.4 kg Body Mass Index (BMI) 0.1 Intake and Output for Last 24 Hours 07/17/18 07/18/18 07/19/18 23:59 23:59 23:59 Intake Total 2579 / 2579 2451.2 / 2451.2 120 / 120 Output Total 2775 / 2775 2625 / 2625 875 / 875 Balance -196 / -196 -173.8 / -173.8 -755 / -755 Microbiology Past 72 Hours 07/16/18 14:07 Blood Culture (Wb) - Anticubital Right Blood Culture - Preliminary No growth in 48 hours. 07/16/18 14:15 Blood Culture (Wb) - Left Wrist Blood Culture - Preliminary Gram negative stacy 07/16/18 14:55 Urine, Clean Catch Urine Culture - Final Serratia marcescens 07/17/18 01:15 Mucosa - Nasopharyngeal Respiratory Panel (PCR) - Final Laboratory Results 07/18/18 13:09: POC Glucose 443 H 07/18/18 17:24: POC Glucose 411 H 07/18/18 21:21: POC Glucose 394 H 07/19/18 05:51: WBC 11.1 H, RBC 3.10 L, Hgb 9.4 L, Hct 28.8 L, MCV 92.9, MCH 30.3, MCHC 32.6, RDW 15.0 H, RDW Differential 49.7 H, Plt Count 98 L, MPV 10.3, Immature Gran % (Auto) 0.500, Neut % (Auto) 93.7 H, Lymph % (Auto) 2.3 L, [place] % (Auto) 3.5, Eos % (Auto) 0.0, Baso % (Auto) 0.0, Absolute Neuts (auto) 10.4 H, Absolute Lymphs (auto) 0.25 L, Total Counted Not Reportable, Differential Comment 07/19/18 05:51: Sodium 142, Potassium 4.5, Chloride 104, Carbon Dioxide 28.0, Anion Gap 10, BUN 29 H, Creatinine 0.93, Estim Creat Clear Calc 62.31, Est GFR (MDRD) Af Amer 100, Est GFR (MDRD) Non-Af 83, BUN/Creatinine Ratio 31.1 H, Glucose 289 H, Calcium 8.9 07/19/18 06:44: POC Glucose 290 H Current Medications Acetaminophen (Tylenol) 650 mg PO Q6H PRN PRN PRN Reason: Mild Pain (scale 0-3)/T>100.7 Last Admin: 07/18/18 13:24 Dose: 650 mg Albuterol Sulfate (Ventolin Aerosols) 2.5 mg INHALATION Q2H PRN PRN PRN Reason: dyspnea, wheezing Last Admin: 07/17/18 23:10 Dose: 2.5 mg Albuterol/Ipratropium (Duoneb) 3 ml INHALATION Q4HWA.RT MISAEL Last Admin: 07/19/18 07:06 Dose: 3 ml Ascorbic Acid (Vitamin C) 500 mg PO DAILY@0800 MISAEL Last Admin: 07/19/18 07:00 Dose: 500 mg Aspirin (Ecotrin) 81 mg PO DAILY@0800 [facility] Last Admin: 07/19/18 07:00 Dose: 81 mg Atorvastatin Calcium (Lipitor) 10 mg PO QHS [facility] Last Admin: 07/18/18 21:25 Dose: 10 mg Azathioprine (Imuran) 150 mg PO DAILYCM [facility] Last Admin: 07/19/18 07:00 Dose: 150 mg Bisacodyl (Dulcolax) 5 mg PO DAILY PRN PRN PRN Reason: Constipation Enoxaparin Sodium (Lovenox) 40 mg SC DAILY@1000 [facility] Last Admin: 07/18/18 10:13 Dose: 40 mg Famotidine (Pepcid) 20 mg PO BID [facility] Last Admin: 07/18/18 21:25 Dose: 20 mg Gabapentin (Neurontin) 600 mg PO TIDCM [facility] Last Admin: 07/19/18 07:00 Dose: 600 mg Sodium Chloride () 250 mls @ 15 mls/hr IV .[id number] PRN PRN Reason: SALINE FLUSH Methylprednisolone 1,000 mg/ (Sodium Chloride) 116 mls @ 100 mls/hr IV DAILY [facility] Stop: 07/20/18 10:01 Last Admin: 07/18/18 10:57 Dose: 100 mls/hr Ceftriaxone Sodium (Rocephin) 1 gm in 50 mls @ 100 mls/hr IV Q24 [facility] Last Admin: 07/18/18 10:12 Dose: 100 mls/hr Insulin Glargine (Lantus (Bkc)) 20 units SC QHS [facility] Last Admin: 07/18/18 21:25 Dose: 20 units Insulin Human Lispro (Humalog Kwikpen (Bkc)) 0 unit SQ ACHS [facility]; Protocol Last Admin: 07/19/18 08:08 Dose: 9 u Insulin Human Lispro (Humalog Kwikpen (Bkc)) 6 unit SC TIDAC [facility] Last Admin: 07/19/18 08:09 Dose: 6 u Lisinopril (Zestril) 10 mg PO DAILY [facility] Last Admin: 07/18/18 10:13 Dose: 10 mg Magnesium Hydroxide (Milk Of Magnesia) 30 ml PO DAILY PRN PRN Reason: Constipation Magnesium Oxide (Mag-Ox 400) 400 mg PO BID [facility] Last Admin: 07/18/18 21:25 Dose: 400 mg Multivitamins/Minerals (Multivitamin With Minerals) 1 tablet PO DAILY@0800 [facility] Last Admin: 07/19/18 07:00 Dose: 1 tablet Oxycodone HCl (Oxyir) 5 mg PO Q4H PRN PRN PRN Reason: Moderate Pain (pain scale 4-5) Potassium Chloride (K-Dur) 20 meq PO BID [facility] Last Admin: 07/18/18 21:24 Dose: 20 meq Prochlorperazine Edisylate (Compazine Iv) 5 - 10 mg IV Q6H PRN PRN PRN Reason: Nausea/Vomiting Sodium Chloride () 5 - 15 ml IV UD PRN PRN Reason: SALINE FLUSH Last Admin: 07/17/18 08:37 Dose: 10 ml Tamsulosin HCl (Flomax) 0.8 mg PO DAILY@0830 [facility] Last Admin: 07/19/18 07:00 Dose: 0.8 mg Medical Necessity - Tobacco Use Smoking Status: Former smoker Tobacco Use: Non-smoker Assessment/Plan All Active Problems Pyelonephritis (Acute) Sepsis (Acute) Acute pancreatitis (Resolved) Pneumonia due to Streptococcus pneumoniae (Resolved) 78 year-old male with Chronic pulmonary fibrosis, with chronic hypoxic respiratory failure on 10 L of oxygen at home, follows with Dr. Siegel, comes in with complaints of urine incontinence, generalized weakness and a 1 day history of fall. 1. Sepsis secondary to suspected complicated Serratia UTI/gram-negative stacy bacteremia, blood cultures growing gram-negative stacy, repeat blood cultures are pending, urine cultures growing Serratia, on ceftriaxone (day 4 of antibiotics) Will continue same antibiotics, follow-up on repeat blood cultures. 2. Acute on chronic respiratory failure secondary to acute exacerbation of pulmonary fibrosis, improving, Respiratory panel is negative, recent sputum cultures have been positive for Enterobacter. On IV Solu-Medrol high-dose for 3 days( day 3 today), on breathing treatments, continued oxygen, Patient is at his baseline oxygen 3. Suspected urinary retention, history of BPH, on Flomax, on Flomax to 0.8 mg p.o. daily, will dc ibanez and monitor for retention. 4. Type II DM, sugars are uncontrolled, on Lantus 20 units nightly, as well as 4 units lispro 3 times daily, as well as high-dose insulin sliding scale. Will increase Lantus to 24 units QHS, continue with high-dose insulin sliding scale. 5. Hypertension, controlled, continue on lisinopril, continue to monitor vitals 6. Hyperlipidemia, on statin 7. Morbid obesity, BMI 36.5, diet and exercise is recommended for later 8. DVT PPx- lovenox SC 9. CODE STATUS: Full code Code Visit Inpatient E&M: 68090 Subs Hosp L2
[2018-07-19] MEDS: Enoxaparin 40 MG/0.4 ML Syringe SC (09:17)
[2018-07-19] MEDS: Magnesium Oxide 400 MG Tablet PO ×2 (09:18→21:22)
[2018-07-19] MEDS: Famotidine 20 MG Tablet PO ×2 (09:18→21:22)
[2018-07-19] MEDS: Lisinopril 10 MG Tablet PO ×2 (09:18)
[2018-07-19] MEDS: Ceftriaxone 1 GM/50 ML BAG IV (09:23)
[2018-07-19] MEDS: Acetaminophen 325 MG Tablet 650 MG PO (11:08)
[2018-07-19 11:35] LABS: Bedside Glucose 394 mg/dL (70-110)
--- NOTE | 2018-07-19 14:42 | NURSING ---
Spoke with son Adam at this time and updated on patients condition and answered all questions and concerns at this time.
[2018-07-19 18:06] LABS: Bedside Glucose 295 mg/dL (70-110)
[2018-07-19] MEDS: Atorvastatin Calcium 10 MG Tablet PO (21:22)
[2018-07-19 21:56] LABS: Bedside Glucose 296 mg/dL (70-110)
[2018-07-20] VITALS (15 sets, daily range): BP systolic 106–138; BP diastolic 56–86; PULSE 74–113; RESP 19–29; TEMP 36.6–37; O2SAT 91–97
[2018-07-20 07:06] LABS: Bedside Glucose 222 mg/dL (70-110)
[2018-07-20] MEDS: Aspirin E.C. 81 MG Tablet PO (08:41)
[2018-07-20] MEDS: Magnesium Oxide 400 MG Tablet PO ×2 (08:41→22:22)
[2018-07-20] MEDS: azaTHIOprine 50 MG Tablet 150 MG PO (08:41)
[2018-07-20] MEDS: Gabapentin 600 MG Tablet PO ×3 (08:41→17:03)
[2018-07-20] MEDS: Multivitamins,Ther W-Minerals Tablet 1 TABLET PO (08:41)
[2018-07-20] MEDS: Ascorbic Acid 500 MG Tablet PO (08:42)
[2018-07-20] MEDS: Tamsulosin HCl 0.4 MG Capsule 0.8 MG PO (08:42)
[2018-07-20] MEDS: Insulin Lispro 100 UNIT/ML INSULN.PEN 6 UNIT SC ×3 (08:45→17:03)
[2018-07-20] MEDS: Enoxaparin 40 MG/0.4 ML Syringe SC (08:45)
[2018-07-20] MEDS: Insulin Lispro 100 UNIT/ML INSULN.PEN SQ ×4 (08:45→22:28)
[2018-07-20] MEDS: Lisinopril 10 MG Tablet PO (08:50)
[2018-07-20] MEDS: Famotidine 20 MG Tablet PO ×2 (08:50→22:23)
[2018-07-20] MEDS: Ceftriaxone 1 GM/50 ML BAG IV (08:50)
[2018-07-20] MEDS: 0.9% NaCl Peripheral Flush Adult/Peds IV (08:51)
[2018-07-20 12:20] LABS: Bedside Glucose 356 mg/dL (70-110)
--- NOTE | 2018-07-20 13:00 | CASEMGMT ---
Social Work: Met with patient in room to discuss D/C planning. Patient admits to needing SNF placement at D/C for therapy before returning home. Patient requesting this SW call [facility] for bed availability. TC to Rylee at [facility]. Rylee requesting clinicals be faxed. PLAN: Patient to be discharged when medically ready and pending [facility] acceptance. ROBE Graf
--- NOTE | 2018-07-20 13:38 | CASEMGMT ---
Social Work: Spoke with physician who states that patient will be unable to return home at this time due to weakness and SOB. Spoke with patient in room. Patient agreeable to short term SNF. Patient requesting WVM. Will continue to follow to assist as needed with D/C planning. TC to W. Voice mail message left for Rylee to call this SW back. ROBE Graf
--- NOTE | 2018-07-20 14:01 | CASEMGMT ---
Per KHAI Thrasher, referral needs faxed to [facility]. KHAI already spoke with [facility] admissions, Rylee. Referral faxed, confirmation received. Anushka Titus LPN Clinical Support
--- NOTE | 2018-07-20 14:48 | PN_ITS ---
Patient Problems: Active and Suspected Problems Pyelonephritis (Acute) Sepsis (Acute) Urine retention (Suspected) Subjective: Patient was seen and examined. He complains of loose stools. Denies fever or chills, nausea or vomiting. Still feels very SOB with the least movement. Objective: Physical Exam General: Alert, Oriented x3, Cooperative, No apparent distress, obese, on 10 L of oxygen HEENT: PERRLA, EOMI, Normocephalic Oral: No Gingival or Mucosal Lesions/ Ulcerations, Dry Mucosa Neck: Supple, No Nodes, No Nuchal Rigidity, Trachea Midline Lungs: Diminished, mild use of accessory muscles of respiration Cardiovascular: Regular Rhythm, Normal S1, Normal S2, No murmurs, No rub noted, No Gallop, Tachycardic Abdomen: Bowel Sounds Present, Soft, Obese, Tender - in the suprapubic area Extremities: TRace bilateral edema, diminished Peripheral Pulses Skin: No rashes, No breakdown, - - he has a small abrasion and ecchymosis of the Left knee from recent fall Musculoskeletal: No Muscle Wasting, Arthritic Changes Neurological: Cranial nerves II-XII grossly intact, Neuro grossly intact Psych/Mental Status: Normal Affect, Appropriat Vitals/I&O's: Vital Signs Temp Pulse Resp BP Pulse Ox 98.0 F 113 H 22 H 120/67 92 07/20/18 14:28 07/20/18 14:28 07/20/18 14:28 07/20/18 14:28 07/20/18 14:28 Oxygen Flow Rate (L/min) 10 Oxygen Delivery Method Nasal Cannula Weight: 107.7 kg Body Mass Index (BMI) 0.1 Intake and Output for Last 24 Hours 07/18/18 07/19/18 07/20/18 23:59 23:59 23:59 Intake Total 2451.2 / 2451.2 1617 / 1617 1600 / 1600 Output Total 2625 / 2625 2325 / 2325 1350 / 1350 Balance -173.8 / -173.8 -708 / -708 250 / 250 Microbiology Past 72 Hours 07/20/18 12:00 Stool C. difficile DNA Amplification - Final 07/17/18 08:30 Blood Culture (Wb) - Line Draw Blood Culture - Preliminary No growth in 48 hours. 07/17/18 08:20 Blood Culture (Wb) - Right Hand Blood Culture - Preliminary No growth in 48 hours. 07/16/18 14:15 Blood Culture (Wb) - Left Wrist Blood Culture - Final Serratia marcescens 07/16/18 14:07 Blood Culture (Wb) - Anticubital Right Blood Culture - Preliminary No growth in 48 hours. 07/16/18 14:55 Urine, Clean Catch Urine Culture - Final Serratia marcescens Laboratory Results 07/19/18 17:49: POC Glucose 295 H 07/19/18 21:32: POC Glucose 296 H 07/20/18 06:46: POC Glucose 222 H 07/20/18 12:08: POC Glucose Pending Current Medications Acetaminophen (Tylenol) 650 mg PO Q6H PRN PRN PRN Reason: Mild Pain (scale 0-3)/T>100.7 Last Admin: 07/19/18 11:08 Dose: 650 mg Albuterol Sulfate (Ventolin Aerosols) 2.5 mg INHALATION Q2H PRN PRN PRN Reason: dyspnea, wheezing Last Admin: 07/17/18 23:10 Dose: 2.5 mg Albuterol/Ipratropium (Duoneb) 3 ml INHALATION Q4HWA.RT [facility] Last Admin: 07/20/18 11:34 Dose: Not Given Ascorbic Acid (Vitamin C) 500 mg PO DAILY@0800 [facility] Last Admin: 07/20/18 08:42 Dose: 500 mg Aspirin (Ecotrin) 81 mg PO DAILY@0800 [facility] Last Admin: 07/20/18 08:41 Dose: 81 mg Atorvastatin Calcium (Lipitor) 10 mg PO QHS [facility] Last Admin: 07/19/18 21:22 Dose: 10 mg [facility]athiop[facility] ([facility]uran) [facility] Last Admin: 07/20/18 08:41 Dose: 150 mg Bisacodyl (Dulcolax) 5 mg PO DAILY PRN PRN PRN Reason: Constipation Enoxaparin Sodium (Lovenox) 40 mg SC DAILY@1000 [facility] Last Admin: 07/20/18 08:45 Dose: 40 mg Famotidine (Pepcid) 20 mg PO BID [facility] Last Admin: 07/20/18 08:50 Dose: 20 mg Gabapentin (Neurontin) 600 mg PO TIDCM [facility] Last Admin: 07/20/18 12:50 Dose: 600 mg Sodium Chloride () 250 mls @ 15 mls/hr IV .[id number] PRN PRN Reason: SALINE FLUSH Ceftriaxone Sodium (Rocephin) 1 gm in 50 mls @ 100 mls/hr IV Q24 [facility] Last Admin: 07/20/18 08:50 Dose: 100 mls/hr Insulin Glargine (Lantus (Bkc)) 24 units SC QHS [facility] Last Admin: 07/19/18 21:33 Dose: 24 u Insulin Human Lispro (Humalog Kwikpen (Bkc)) 0 unit SQ ACHS [facility]; Protocol Last Admin: 07/20/18 12:51 Dose: 12 u Insulin Human Lispro (Humalog Kwikpen (Bkc)) 6 unit SC TIDAC [facility] Last Admin: 07/20/18 12:50 Dose: 6 u Lactobacillus Acidophilus (Acidophilus) 2 tablet PO 4X/DAY [facility] Lisinopril (Zestril) 10 mg PO DAILY [facility] Last Admin: 07/20/18 08:50 Dose: 10 mg Loperamide HCl (Imodium) 2 mg PO Q2H PRN PRN PRN Reason: Diarrhea Magnesium Hydroxide (Milk Of Magnesia) 30 ml PO DAILY PRN PRN Reason: Constipation Magnesium Oxide (Mag-Ox 400) 400 mg PO BID [facility] Last Admin: 07/20/18 08:41 Dose: 400 mg Multivitamins/Minerals (Multivitamin With Minerals) 1 tablet PO DAILY@0800 [facility] Last Admin: 07/20/18 08:41 Dose: 1 tablet Oxycodone HCl (Oxyir) 5 mg PO Q4H PRN PRN PRN Reason: Moderate Pain (pain scale 4-5) Potassium Chloride (K-Dur) 20 meq PO BID [facility] Last Admin: 07/20/18 08:42 Dose: 20 meq Prochlorperazine Edisylate (Compazine Iv) 5 - 10 mg IV Q6H PRN PRN PRN Reason: Nausea/Vomiting Sodium Chloride () 5 - 15 ml IV UD PRN PRN Reason: SALINE FLUSH Last Admin: 07/20/18 08:51 Dose: 10 ml Tamsulosin HCl (Flomax) 0.8 mg PO DAILY@0830 [facility] Last Admin: 07/20/18 08:42 Dose: 0.8 mg Medical Necessity - Tobacco Use Smoking Status: Former smoker Tobacco Use: Non-smoker Assessment/Plan All Active Problems Pyelonephritis (Acute) Sepsis (Acute) Acute pancreatitis (Resolved) Pneumonia due to Streptococcus pneumoniae (Resolved) 78 year-old male with Chronic pulmonary fibrosis, with chronic hypoxic respiratory failure on 10 L of oxygen at home, follows with Dr. Siegel, comes in with complaints of urine incontinence, generalized weakness and a 1 day history of fall. 1. Sepsis secondary to suspected complicated Serratia UTI/gram-negative stacy bacteremia, blood cultures also growing Serratia marenscens, repeat blood cultures anegative , urine cultures growing Serratia, on ceftriaxone (day 5 of antibiotics) Will continue same antibiotics, follow-up on repeat blood cultures. 2. Acute on chronic respiratory failure secondary to acute exacerbation of pulmonary fibrosis, very slowly improving, Respiratory panel is negative, recent sputum cultures have been positive for Enterobacter. Completed high-dose IV solu-medrol for 3 days, Continue on breathing treatments, baseline oxygen 3. Suspected urinary retention, history of BPH, on Flomax, on Flomax to 0.8 mg p.o. daily, he has been discontinued, no retention skin 4. Type II DM, sugars are uncontrolled, on Lantus 24 units nightly, as well as 6 units lispro 3 times daily, as well as high-dose insulin sliding scale. Continue with high-dose insulin sliding scale. 5. Hypertension, controlled, continue on lisinopril, continue to monitor vitals 6. Hyperlipidemia, on statin 7. Morbid obesity, BMI 36.5, diet and exercise is recommended for later 8. DVT PPx- lovenox SC 9. CODE STATUS: Full code Code Visit Inpatient E&M: 36458 Subs Hosp L2
--- NOTE | 2018-07-20 15:45 | CASEMGMT ---
Social Work: TC from Rylee at [facility]. Rylee states they are able to accept patient when medically ready. Spoke with patient in room. Patient aware that [facility] is able to accept when medically ready for D/C. Will follow to assist as needed with D/C planning. PLAN: Patient to be discharged to [facility] when medically ready. ROBE Graf
[2018-07-20] MEDS: Loperamide 2 MG Capsule PO (16:08)
[2018-07-20] MEDS: predniSONE 20 MG Tablet 40 MG PO (16:08)
[2018-07-20 16:20] LABS: Bedside Glucose 371 mg/dL (70-110)
[2018-07-20] MEDS: Atorvastatin Calcium 10 MG Tablet PO (22:22)
[2018-07-21] VITALS (13 sets, daily range): BP systolic 114–131; BP diastolic 67–80; PULSE 76–118; RESP 16–34; TEMP 36.1–36.6; O2SAT 92–97
[2018-07-21 00:41] LABS: Bedside Glucose 234 mg/dL (70-110)
[2018-07-21] MEDS: Ipratropium/Albuterol Sulfate 3 ML AMPUL.NEB INHALATION (06:12)
--- NOTE | 2018-07-21 08:32 | RAD_ITS ---
STUDY: X-RAY CHEST REASON FOR EXAM: Male, 78 years old. Pulmonary fibrosis. TECHNIQUE: Single AP portable view of the chest. COMPARISON: Comparison is made with prior study dated July 16, 2018. FINDINGS: EKG electrodes are seen. Limited inspiratory effort. Findings suggest vascular congestion and CHF. There has been no change. Blunting of the left costophrenic angle. There is moderate cardiac enlargement. Normal mediastinum and torrey. Normal visualized pulmonary arteries. There is atherosclerotic calcification of the aortic arch with tortuosity. There are diffuse degenerative changes of the visualized thoracic spine. Normal visualized ribs, clavicles, and shoulders. There is no demonstrated abnormality of the visualized soft tissue structures of the upper abdomen. RAD/Chest 1 View (Portable) IMPRESSION: Stable examination. Electronically Signed: Saad Berry MD at 9:24 EST Tel [phone], Service support ,
[2018-07-21] MEDS: Insulin Lispro 100 UNIT/ML INSULN.PEN SQ ×2 (09:27→11:30)
[2018-07-21] MEDS: Aspirin E.C. 81 MG Tablet PO (09:28)
[2018-07-21] MEDS: Insulin Lispro 100 UNIT/ML INSULN.PEN 6 UNIT SC ×2 (09:28→11:30)
[2018-07-21] MEDS: azaTHIOprine 50 MG Tablet 150 MG PO (09:29)
[2018-07-21] MEDS: predniSONE 20 MG Tablet 40 MG PO (09:30)
[2018-07-21] MEDS: Gabapentin 600 MG Tablet PO ×2 (09:30→11:30)
[2018-07-21] MEDS: Multivitamins,Ther W-Minerals Tablet 1 TABLET PO (09:30)
[2018-07-21] MEDS: Ascorbic Acid 500 MG Tablet PO (09:31)
[2018-07-21] MEDS: Tamsulosin HCl 0.4 MG Capsule 0.8 MG PO (09:31)
[2018-07-21] MEDS: Enoxaparin 40 MG/0.4 ML Syringe SC (09:32)
[2018-07-21] MEDS: Famotidine 20 MG Tablet PO (09:32)
[2018-07-21] MEDS: Ceftriaxone 1 GM/50 ML BAG IV (09:32)
[2018-07-21] MEDS: Magnesium Oxide 400 MG Tablet PO (09:32)
[2018-07-21] MEDS: Lisinopril 10 MG Tablet PO (09:33)
[2018-07-21] MEDS: 0.9% NaCl Peripheral Flush Adult/Peds IV ×2 (09:34→11:29)
[2018-07-21] MEDS: Furosemide 20 MG/2 ML VIAL IV (11:28)
[2018-07-21 11:31] LABS: Bedside Glucose 193 mg/dL (70-110)
[2018-07-21 11:46] LABS: Bedside Glucose 365 mg/dL (70-110)
--- NOTE | 2018-07-21 11:55 | PCM.TXEXTCAR ---
- Diet 07/16/18 17:41 Diet: Cardiac: Calorie-Controlled Food consistency:: Regular Liquid Consistency:: Regular/Thin Is pt able to select menu?: Yes How many daily calories?: 1800 calorie - Routine Orders/Code Status O2 Frequency: Continuous - 10-12L Keep PO Greater than or Equal to (%): 92 - Cpap at night 16mmHg - Wound(s) Head Wound Type: Abrasion RFA Wound Type: Abrasion - Therapies Weight Bearing: Weight bearing as tolerated Physical Therapy: Eval and Treat Occupational Therapy: Eval and Treat - Allergies/Procedures Done in Hospital Allergies/Adverse Reactions: Allergies No Known Allergies Allergy (Verified 07/16/18 12:56) Procedures: None - Type of Care/Length of Stay Estimated LOS: Convalescent Care Less Than 30 days Type of Care Needed: Skilled Rehab Potential: Fair Prognosis: Fair - Additional Orders/Day of Discharge Additional Orders: Recommend palliative care in the prison care. Day of Discharge: 07/21/18 - Dietary and Speech Recommendations Dietitian Recommendations/Changes: Rec diet change to 1800 taiwo Cardiac/PER d/t BMI and pmhx - Follow Up Care Primary Care Physician: Flory Pantoja MD [Primary Care Provider] - Please follow up with your Primary Care Physician in: within 1- 2 weeks Please Follow Up With: Roland Pressley MD When: within 1 week
--- NOTE | 2018-07-21 11:59 | TREXTCAR_ITS ---
- Diet 07/16/18 17:41 Diet: Cardiac: Calorie-Controlled Food consistency:: Regular Liquid Consistency:: Regular/Thin Is pt able to select menu?: Yes How many daily calories?: 1800 calorie - Routine Orders/Code Status O2 Frequency: Continuous - 10-12L Keep PO Greater than or Equal to (%): 92 - Cpap at night 16mmHg - Wound(s) Head Wound Type: Abrasion RFA Wound Type: Abrasion - Therapies Weight Bearing: Weight bearing as tolerated Physical Therapy: Eval and Treat Occupational Therapy: Eval and Treat - Allergies/Procedures Done in Hospital Allergies/Adverse Reactions: Allergies No Known Allergies Allergy (Verified 07/16/18 12:56) Procedures: None - Type of Care/Length of Stay Estimated LOS: Convalescent Care Less Than 30 days Type of Care Needed: Skilled Rehab Potential: Fair Prognosis: Fair - Additional Orders/Day of Discharge Additional Orders: Recommend palliative care in the [facility] care. Day of Discharge: 07/21/18 - Dietary and Speech Recommendations Dietitian Recommendations/Changes: Rec diet change to 1800 taiwo Cardiac/PER d/t BMI and pmhx - Follow Up Care Primary Care Physician: Flory Pantoja MD [Primary Care Provider] - Please follow up with your Primary Care Physician in: within 1- 2 weeks Please Follow Up With: Roland Pressley MD When: within 1 week
--- NOTE | 2018-07-21 12:02 | DS.PCM_ITS ---
Discharge Date and Diagnosis - Problem List Patient Problems: Active and Suspected Problems Pyelonephritis (Acute) Sepsis (Acute) Urine retention (Suspected) Date of Admission: 07/16/18 Date of Discharge: 07/21/18 - Primary Discharge Diagnosis Active and Suspected Problems 1. Sepsis secondary to suspected complicated Serratia UTI 2. Serratia marcens bacteremia 3. Acute on chronic respiratory failure secondary to acute exacerbation of pulmonary fibrosis 4. Acute urinary retention, resolved 5. Uncontrolled Type 2 DM 6. Acute on chronic diastolic CHF - Secondary Discharge Diagnosis Chronic Problems Chronic hypoxemic respiratory failure (Chronic) Thrombocytopenia (Chronic) BPH (benign prostatic hyperplasia) (Chronic) Moderate pulmonary arterial systolic hypertension (Chronic) Morbid obesity (Chronic) Grade I diastolic dysfunction (Chronic) Moderate tricuspid regurgitation (Chronic) Obstructive sleep apnea of adult (Chronic) Pulmonary fibrosis (Chronic) Diabetic neuropathy (Chronic) Hypertension (Chronic) Gastro-esophageal reflux (Chronic) Hyperlipidemia (Chronic) Type 2 diabetes mellitus (Chronic) Hypogonadism male (Chronic) Coronary artery arteriosclerosis (Chronic) Hospital Course and Treatment Imaging Results: Clinical Impression(s) from Imaging Studies Brain CT 07/16/18 13:39 IMPRESSION: Chronic involutional changes of the brain. Electronically Signed: Saad Berry MD at 15:12 EST Tel [phone], Service support , Cervical Spine CT 07/16/18 13:40 IMPRESSION: Multilevel degenerative changes, as described above. Electronically Signed: Saad Berry MD at 15:24 EST Tel [phone], Service support , Chest X-Ray 07/16/18 14:35 IMPRESSION: Central vascular congestion and diffuse pulmonary edema with low lung volumes. Electronically Signed: Ton Daly MD at 14:53 EST Tel , Service support , Chest X-Ray 07/21/18 08:32 IMPRESSION: Stable examination. Electronically Signed: Saad Berry MD at 9:24 EST Tel [phone], Service support , 07/21/18 08:32 Chest 1 View (Portable) [RAD] Urgent Physician Chief Of Pathology Operations: None Procedures: None Summary of Care Provided: 78 year-old male with Chronic pulmonary fibrosis, with chronic hypoxic respiratory failure on 10 L of oxygen at home, follows with Dr. Siegel, comes in with complaints of urine incontinence, generalized weakness and a 1 day history of fall. Patient was found to have increased oxygen requirements. He was admitted to PCU but was transferred to ICU for BiPAP. He was started on high dose steroids, 1g daily for acute exacerbation of pulmonary fibrosis. He was later followed with prednisone taper. He was also managed as sepsis secondary to suspected complicated Serratia UTI. Blood cultures grew Serratia marenscens, repeat blood cultures was negative. He was initially on Zosyn and later de-escalated to IV ceftriaxone. He was discharged on 7 days of cefdinir making a total of 14 days antibiotics. He was managed also on flomax. Initially had a ibanez catheter but that later discontinued with patient being able to void subsequently. His blood sugars were uncontrolled secondary to high-dose steroids. Changes were made to his Lantus. Patient was also started on Lasix for acute on chronic diastolic CHF. He discharged to a [facility] facility. He will follow-up with Dr. Pressley in a week. Patient Problems: Active and Suspected Problems Pyelonephritis (Acute) Sepsis (Acute) Urine retention (Suspected) Subjective: On the day of discharge, patient was feeling about the same. Had one bowel movements at the time of exam. Denies fever or chills or chest pain. Objective: Physical Exam General: Alert, Oriented x3, Cooperative, No apparent distress, obese, on 12 L of oxygen HEENT: PERRLA, EOMI, Normocephalic Oral: No Gingival or Mucosal Lesions/ Ulcerations, Dry Mucosa Neck: Supple, No Nodes, No Nuchal Rigidity, Trachea Midline Lungs: Diminished, mild use of accessory muscles of respiration Cardiovascular: Regular Rhythm, Normal S1, Normal S2, No murmurs, No rub noted, No Gallop, Tachycardic Abdomen: Bowel Sounds Present, Soft, Obese, Tender - in the suprapubic area Extremities: TRace bilateral edema, diminished Peripheral Pulses Skin: No rashes, No breakdown, - - he has a small abrasion and ecchymosis of the Left knee from recent fall Musculoskeletal: No Muscle Wasting, Arthritic Changes Neurological: Cranial nerves II-XII grossly intact, Neuro grossly intact Psych/Mental Status: Normal Affect, Appropriate - Physical Exam Vital Signs Temp Pulse Resp BP Pulse Ox 97.8 F 118 H 16 114/80 92 07/21/18 09:25 07/21/18 11:00 07/21/18 09:25 07/21/18 09:25 07/21/18 09:25 Oxygen Flow Rate (L/min) 12 Oxygen Delivery Method Nasal Cannula Weight: 108.3 kg Body Mass Index (BMI) 0.1 Intake and Output for Last 24 Hours 07/19/18 07/20/18 07/21/18 23:59 23:59 23:59 Intake Total 1617 / 1617 3200 / 3200 400 / 400 Output Total 2325 / 2325 2100 / 2100 Balance -708 / -708 1100 / 1100 400 / 400 Microbiology Past 72 Hours 07/21/18 05:00 Gram Stain - Final Sputum, Expectorated/Coughed 07/20/18 12:00 C. difficile DNA Amplification - Final Stool 07/17/18 08:30 Blood Culture - Preliminary Blood Culture (Wb) - Line Draw No growth in 48 hours. 07/17/18 08:20 Blood Culture - Preliminary Blood Culture (Wb) - Right Hand No growth in 48 hours. 07/16/18 14:15 Blood Culture - Final Blood Culture (Wb) - Left Wrist Serratia marcescens 07/16/18 14:07 Blood Culture - Preliminary Blood Culture (Wb) - Anticubital Right No growth in 48 hours. 07/16/18 14:55 Urine Culture - Final Urine, Clean Catch Serratia marcescens POC Glucose 07/21/18 07/21/18 07/20/18 11:26 06:48 22:09 POC Glucose 365 H 193 H 234 H 07/20/18 16:12 POC Glucose 371 H Discharge Diet: Low fat/ Low Cholesterol, 8 Cup Fluid Restriciton, 2000 mg Sodium Diet Home Medications: Medications to take at Discharge Atorvastatin Calcium [Lipitor] 10 mg PO QHS 11/09/13 Flaxseed Oil/[place] 3,6,9 [Sv Flaxseed Oil 1,300 mg Sftgl] 1 cap PO DAILY 11/09/13 Potassium Chloride [K-Dur] 20 meq PO BID 11/09/13 Tizanidine HCl [Zanaflex] 2 - 4 mg PO QHS 11/09/13 Glucosamine Sulf/Chondroitin A [Glucosamine-Chondroitin Cap] 1 each PO BID 10/27/14 Ranitidine [Zantac] 150 mg PO DAILY 06/27/17 Aspirin E.C. [Ecotrin] 81 mg PO DAILY@0800 05/08/18 Gabapentin [Neurontin] 600 mg PO TID 05/08/18 Insulin Lispro [Humalog KwikPen] 6 units SQ TID 05/08/18 Magnesium Oxide [Magnesium] 1,000 mg PO BID 05/08/18 Multivit-Min/FA/Lycopen/Lutein [Centrum Silver Men Tablet] 1 tab PO DAILY 05/08/18 Lisinopril [Zestril] 10 mg PO DAILY #30 tablet 05/15/18 Ascorbic Acid [Vitamin C] 500 mg PO DAILY@0800 07/16/18 Azathioprine 150 mg PO DAILY 07/16/18 Cyanocobalamin (Vitamin B-12) [Vitamin B-12] 50 mcg PO BID 07/16/18 Acetaminophen [Tylenol Tablet] 650 mg PO Q6H PRN PRN tablet 07/21/18 Albuterol Aerosols [Ventolin Aerosols] 2.5 mg INHALATION Q2H PRN PRN vial.neb. 07/21/18 Bisacodyl [Dulcolax] 5 mg PO DAILY PRN PRN tablet 07/21/18 Cefdinir [Omnicef [equiv]] 300 mg PO Q12H #14 capsule 07/21/18 Enoxaparin [Lovenox] 40 mg SC DAILY@1000 syringe 07/21/18 Furosemide [Lasix] 40 mg PO BIDLX #14 tablet 07/21/18 Insulin Glargine [Lantus SoloStar Pen] 28 units SC QHS pen 07/21/18 Insulin Lispro [Humalog KwikPen] See Protocol SQ ACHS insuln.pen 07/21/18 Ipratropium/Albuterol Sulfate [Duoneb] 3 ml INHALATION Q4HWA.RT ampul.neb 07/21/18 Lactobacillus Acidophilus [Acidophilus] 2 tablet PO 4X/DAY tablet 07/21/18 Loperamide [Imodium] 2 mg PO Q2H PRN PRN capsule 07/21/18 Tamsulosin HCl [Flomax] 0.8 mg PO DAILY@0830 capsule 07/21/18 predniSONE tablet See Taper PO DAILY@0800 #30 tablet 07/21/18 Following Prescrptions Were Given to Patient: Cefdinir [Omnicef [equiv]] 300 mg PO Q12H #14 capsule Furosemide [Lasix] 40 mg PO BIDLX #14 tablet predniSONE tablet See Taper PO DAILY@0800 #30 tablet Primary Care Physician: Flory Pantoja MD [Primary Care Provider] - Please follow up with your Primary Care Physician in: within 1- 2 weeks Please Follow Up With: Roland Pressley MD When: within 1 week Disposition: Detention facility Minutes spent on discharge:: 40 Medical Necessity - Tobacco Use Smoking Status: Former smoker Tobacco Use: Non-smoker Meaningful Use Info Meaningful Use Diagnoses (Choose all that apply): CHF - CHF JOVON/ARB ordered at discharge?: Yes Documented LVEF (%): 75 Code Visit Inpatient E&M: 20255 Disch Hosp
--- NOTE | 2018-07-21 12:20 | PHA.DC.MR ---
Pharmacy Service has performed discharge medication reconciliation for this patient upon transfer to [facility]. The patient's discharge medication list was reviewed for discrepancies and discrepancies were resolved. Home Medications Atorvastatin Calcium [Lipitor] 10 mg PO QHS 11/09/13 Flaxseed Oil/[place] 3,6,9 [Sv Flaxseed Oil 1,300 mg Sftgl] 1 cap PO DAILY 11/09/13 Potassium Chloride [K-Dur] 20 meq PO BID 11/09/13 Tizanidine HCl [Zanaflex] 2 - 4 mg PO QHS 11/09/13 Glucosamine Sulf/Chondroitin A [Glucosamine-Chondroitin Cap] 1 each PO BID 10/27/14 Ranitidine [Zantac] 150 mg PO DAILY 06/27/17 Aspirin E.C. [Ecotrin] 81 mg PO DAILY@0800 05/08/18 Gabapentin [Neurontin] 600 mg PO TID 05/08/18 Insulin Lispro [Humalog KwikPen] 6 units SQ TID 05/08/18 Magnesium Oxide [Magnesium] 1,000 mg PO BID 05/08/18 Multivit-Min/FA/Lycopen/Lutein [Centrum Silver Men Tablet] 1 tab PO DAILY 05/08/18 Lisinopril [Zestril] 10 mg PO DAILY #30 tablet 05/15/18 Ascorbic Acid [Vitamin C] 500 mg PO DAILY@0800 07/16/18 Azathioprine 150 mg PO DAILY 07/16/18 Cyanocobalamin (Vitamin B-12) [Vitamin B-12] 50 mcg PO BID 07/16/18 Acetaminophen [Tylenol Tablet] 650 mg PO Q6H PRN PRN tablet 07/21/18 Albuterol Aerosols [Ventolin Aerosols] 2.5 mg INHALATION Q2H PRN PRN vial.neb. 07/21/18 Bisacodyl [Dulcolax] 5 mg PO DAILY PRN PRN tablet 07/21/18 Cefdinir [Omnicef [equiv]] 300 mg PO Q12H #14 capsule 07/21/18 Enoxaparin [Lovenox] 40 mg SC DAILY@1000 syringe 07/21/18 Furosemide [Lasix] 40 mg PO BIDLX #14 tablet 07/21/18 Insulin Glargine [Lantus SoloStar Pen] 28 units SC QHS pen 07/21/18 Insulin Lispro [Humalog KwikPen] See Protocol SQ ACHS insuln.pen 07/21/18 Ipratropium/Albuterol Sulfate [Duoneb] 3 ml INHALATION Q4HWA.RT ampul.neb 07/21/18 Lactobacillus Acidophilus [Acidophilus] 2 tablet PO 4X/DAY tablet 07/21/18 Loperamide [Imodium] 2 mg PO Q2H PRN PRN capsule 07/21/18 Tamsulosin HCl [Flomax] 0.8 mg PO DAILY@0830 capsule 07/21/18 predniSONE tablet See Taper PO DAILY@0800 #30 tablet 07/21/18
[2018-07-21] MEDS: Loperamide 2 MG Capsule PO (14:31)
--- NOTE | 2018-07-21 15:50 | CASEMGMT ---
Social Work SW spoke with Rylee at [facility] and pt has been accepted. O2 will be delivered to facility at 2:00 today and pt can be admitted after that time. Per physican, pt is ready for d/c today. SW met with pt in room and pt is agreeable to transfer to [facility] today. Pt states he has already notified his and does not want SW to contact her. Pt has used [facility] in the past and would like to use them for transport. Transport arranged for 4pm cot pickup by [facility]. Pt, nurse and [facility] notified. 7000 completed and orders faxed to [facility]. No further needs at this time. Plan: [facility] RODERICK [place]
--- OUTSIDE RECORDS SUMMARY | 2018-09-20 08:22 | XMS RPT_ITS | Continuity of Care Document ---
:1940 Author Organization [facility] Address [address] [place] [address] Phone Care Team Providers Name Role Phone Kit SALDANA, Flory Louise Unavailable ROSALIA Arora Unavailable Unavailable Unavailable Unavailable Problems Name Dates Details Allergic rhinitis (J30.9, 477.9) Status: Active BPH without urinary obstruction (N40.0, 600.00) Status: Active Cardiomegaly (I51.7, 429.3) Status: Active Chronic respiratory failure (J96.10, 518.83) Status: Active Constipation (K59.00, 564.00) Comments: better uses ducolax supp. Status: Active Coronary artery arteriosclerosis (I25.10, 414.00) Comments: saw Dr. wood in past. 2010 mild on cath. no signs and symptoms right now. Status: Active DDD (degenerative disc disease), lumbar (M51.36, 722.52) Status: Active Depression (F32.9, 311) Comments: not going out of house talk about get out for haircit some fear moid goid ? agoraphobia Status: Active Diabetes mellitus, type 2 (E11.9, 250.00) Comments: metformin diarhea. januvia pancreatitis. on levemir now. his FBS 200's now. 1 aam breakfast oatmeal some canned fruit he then does not eat until 7pm have sandwich and fruit. at time sugarfree jello or ice cream. get 1 ensure in a day low sugar 30 g protien. now on predniosne so high Status: Active Diabetic neuropathy (E11.40, 250.60) Comments: on neurotin. Status: Active Dupuytren contracture (M72.0, 728.6) Status: Active Encounter for well adult exam with abnormal findings (Renamed from Encounter for general adult medical examination with abnormal findings) (Z00.01, V70.0) Comments: colonscopy 2014 good Status: Active Fatty liver (K76.0, 571.8) Status: Active GERD (gastroesophageal reflux disease) (K21.9, 530.81) Status: Active Hyperlipidemia (E78.5, 272.4) Comments: 06-15 LDL was 8 Status: Active Hypertension (I10, 401.9) Status: Active Hypogonadism in male (E29.1, 257.2) Status: Active Hypomagnesemia (E83.42, 275.2) Status: Active Kidney stone on left side (N20.0, 592.0) Status: Active Low testosterone (R79.89, 790.99) Status: Active Need for prophylactic vaccination and inoculation against influenza (Renamed from Need for immunization against influenza) (Z23, V04.81) Status: Active Obesity (E66.9, 278.00) Status: Active Obstructive sleep apnea (G47.33, 327.23) Comments: have new cpap and work better. sleep better and more rested. Status: Active Osteoarthritis, chronic (M19.90, 715.90) Status: Active Paresthesia (R20.2, 782.0) Comments: 4th and 5th digits on both hands since in hospital sounds like ulnar neuropathy but slowly better. stable Status: Active Pneumonia, bacterial (J15.9, 482.9) Comments: [facility] dc 05-15 Status: Active Pulmonary fibrosis (J84.10, 515) Comments: felt to be RA. was on azathioprine did help slow progression but off with pancreatitis 06-15. follow with Dr. Ramses Carrasco [facility] see him in the . back on the AZA since having pancreati tis felt mor e related to Januvia.echo 11-13 good EF Obrych first did biosy and thought in 3 years. has out lived that been on aza for years and hep stabilze Status: Active Rheumatoid arthritis of foot, unspecified laterality, unspecified rheumatoid factor presence (M06.9, 714.0) Comments: saw rehum at [facility] 05-17 Status: Active SVT (supraventricular tachycardia) (I47.1, 427.89) Comments: seen in [facility] as dx but not see any history on this. Status: Active Thrombocytopenia (D69.6, 287.5) Status: Active Medications Name Dates Details Aspirin Adult Low Dose 81 MG Oral Tablet Delayed Release 1 (one) Tablet Tablet qd for 0 days Quantity: 30 {Tablet} Refills: 0 Ordered:05-Aug-2017 Flory Pantoja MD, MD, Dana M Start : 04-Aug-2017 Active Atorvastatin Calcium 10 MG Oral Tablet 1 (one) Tablet qd for 0 days Quantity: 30 {Tablet} Refills: 0 Ordered:25-May-2018 Flory Pantoja MD, MD, Dana M Start : 25-May-2018 Active Comments:05-25-[address] [facility] d/c AzaTHIOprine 50 MG Oral Tablet uad Tablet to equal 250mg qd (5 tablets qd) for 0 days Quantity: 60 {Tablet} Refills: 0 Ordered:10-Jul-2018 Flory Pantoja MD, MD, Dana M Start : 10-Jul-2018 Active Comments:Dr. Pressley Bisacodyl 10 MG Rectal Suppository 1 (one) Suppository Suppository rectally qd for 0 days Quantity: 30 {Suppository} Refills: 0 Ordered:05-Aug-2017 Flory Pantoja MD, MD, Dana M Start : 04-Aug-2017 Active Flax Seed Oil 1300 MG Oral Capsule 1 (one) Capsule qd for 0 days Quantity: 30 {Capsule} Refills: 0 Ordered:25-May-2018 Flory Pantoja MD, MD, Dana M Start : 25-May-2018 Active Gabapentin 600 MG Oral Tablet 1 (one) Tablet tid for 0 days Quantity: 270 {Tablet} Refills: 1 Ordered:26-Jan-2018 Flory Pantoja MD, MD, Dana M Start : 26-Jan-2018 Active Comments:two hundred and seventy Glucosamine Chondroitin Complx Oral Capsule 1 (one) Capsule bid for 0 days Quantity: 60 {Capsule} Refills: 0 Ordered:25-May-2018 Flory Pantoja MD, MD, Dana M Start : 25-May-2018 Active HumaLOG 100 UNIT/ML Subcutaneous Solution Cartridge 6 Unit tid with meals for 0 days Quantity: 2 {Pre-filled_Pen_Syringe} Refills: 6 Ordered:02-Jul-2018 Flory Pantoja MD, MD, Dana M Start : 02-Jul-2018 Active Comments:DX: E11.9NPI: [id number] Ipratropium-Albuterol 0.5-2.5 (3) MG/3ML Inhalation Solution 1 (one) Ampule Ampule q 6 hours prn for 0 days Quantity: 60 {Ampule} Refills: 0 Ordered:29-May-2018 Flory Pantoja MD, MD, Dana M Start : 25-May-2018 Active Levemir FlexTouch 100 UNIT/ML Subcutaneous Solution Pen-injector 24-30 Unit qhs for 30 days Quantity: 17 {Cartridge} Refills: 5 Ordered:28-May-2018 Flory Pantoja MD, MD, Dana M Start : 28-May-2018 Active Comments:DX: E11.9NPI: [id number] slidibng scale Lisinopril 10 MG Oral Tablet 1 (one) Tablet qd for 0 days Quantity: 30 {Tablet} Refills: 3 Ordered:15-Jun-2018 Flory Pantoja MD, MD, Dana M Start : 15-Jun-2018 Active Lotensin 10 MG Oral Tablet 1 (one) Tablet qd for 0 days Quantity: 30 {Tablet} Refills: 3 Ordered:15-Jun-2018 Flory Pantoja MD, MD, Dana M Start : 15-Jun-2018 Active Magnesium Oxide 500 MG Oral Tablet 2 (two) Tablet bid for 0 days Quantity: 180 {Tablet} Refills: 0 Ordered:25-May-2018 Flory Pantoja MD, MD, Dana M Start : 25-May-2018 Active Comments:05-25-18 dose changed per [facility] Mometasone Furoate 50 MCG/ACT Nasal Suspension 2 (two) [place] each nostril qd for 0 days Quantity: 1 {Box} Refills: 0 Ordered:05-Aug-2017 Flory Pantoja MD, MD, Dana M Start : 04-Aug-2017 Active Mucinex 600 MG Oral Tablet Extended Release 12 Hour 2 (two) Tablet Tablet bid for 0 days Quantity: 120 {Tablet} Refills: 0 Ordered:29-May-2018 Flory Pantoja MD, MD, Dana M Start : 25-May-2018 Active Multi Vitamin Oral Tablet 1 (one) Tablet Tablet qd for 0 days Quantity: 30 {Tablet} Refills: 0 Ordered:05-Aug-2017 Flory Pantoja MD, MD, Dana M Start : 04-Aug-2017 Active OXYGEN (Nasal Gas) (Free Text) 4 liters liters qd for 0 days Quantity: 1 {Canister} Refills: 0 Ordered:05-Aug-2017 Flory Pantoja MD, MD, Dana M Start : 04-Aug-2017 Active Potassium Chloride ER 20 MEQ Oral Tablet Extended Release 1 (one) Tablet bid for 0 days Quantity: 180 {Tablet} Refills: 3 Ordered:05-Jan-2018 Flory Pantoja MD, MD, Dana M Start : 05-Jan-2018 Active PredniSONE 20 MG Oral Tablet 1.5 Tablet qd for one month then decrease to 20mg for 0 days Quantity: 60 {Tablet} Refills: 0 Ordered:10-Jul-2018 Flory Pantoja MD, MD, Dana M Start : 10-Jul-2018 Active Comments:per note from Dr. Pressley 07-10-18 Sertraline HCl 50 MG Oral Tablet 1 (one) Tablet Tablet qd for 0 days Quantity: 30 {Tablet} Refills: 0 Ordered:05-Aug-2017 Flory Pantoja MD, MD, Dana M Start : 04-Aug-2017 Active TiZANidine HCl 4 MG Oral Tablet 1/2-1 Tablet qhs prn for 0 days Quantity: 30 {Tablet} Refills: 3 Ordered:28-May-2018 Flory Pantoja MD, MD, Dana M Start : 28-May-2018 Active Uroxatral 10 MG Oral Tablet Extended Release 24 Hour 1 (one) Tablet qd for 0 days Quantity: 90 {Tablet} Refills: 3 Ordered:05-Jan-2018 Flory Pantoja MD, MD, Dana M Start : 05-Jan-2018 Active Vitamin B Complex Oral Tablet 1 (one) Tablet Tablet qd for 0 days Quantity: 30 {Tablet} Refills: 0 Ordered:05-Aug-2017 Flory Pantoja MD, MD, Dana M Start : 04-Aug-2017 Active Vitamin C ER 500 MG Oral Tablet Extended Release 1 (one) Tablet Tablet qd for 0 days Quantity: 30 {Tablet} Refills: 0 Ordered:05-Aug-2017 Flory Pantoja MD, MD, Dana M Start : 04-Aug-2017 Active Zantac 150 MG Oral Tablet 1 (one) Tablet bid for 0 days Quantity: 60 {Tablet} Refills: 3 Ordered:25-May-2018 Flory Pantoja MD, MD, Dana M Start : 25-May-2018 Active Cefadroxil 1 GM Oral Tablet 1 (one) Tablet Tablet bid for 10 days for 10 days Refills: 0 Ordered:04-Jun-2018 Flory Pantoja MD, MD, Dana M Start : 25-May-2018 End : 04-Jun-2018 Inactive NovoLOG PenFill 100 UNIT/ML Subcutaneous Solution Cartridge 1 (one) Unit start with 6 units with meals for 0 days Quantity: 1 {Each} Refills: 0 Ordered:30-Mar-2018 Flory Pantoja MD, MD, Dana M Start : 30-Mar-2018 End : 30-Mar-2018 Inactive Acidophilus Oral Capsule 1 (one) Capsule Capsule qd for 0 days Quantity: 30 {Capsule} Refills: 0 Ordered:05-Aug-2017 Flory Pantoja MD, MD, Dana M Start : 04-Aug-2017 End : 05-Aug-2017 Discontinued Nitroglycerin 0.4 MG Sublingual Tablet Sublingual 1 (one) Tablet Tablet q 5 minutes x3 for 0 days Quantity: 20 {Tablet} Refills: 0 Ordered:05-Aug-2017 Flory Pantoja MD, MD, Dana M Start : 04-Aug-2017 End : 05-Aug-2017 Discontinued Allergies and Adverse Reactions Name Dates Details Junuv *ANTIDIABETICS* (Allergy) Status: Active Comments: pnacreatitis MetFORMIN HCl *ANTIDIABETICS* (Allergy) Status: Active Comments: diarrhea Past Medical History Name Dates Details Acute pancreatitis (K85.90, 577.0) Comments: seen on CT scanfrom [facility] 06-27-17 show distended gall bladder but us okay and felt related to januvia and azathioprine. at this point think related to januvia so restart the aza. will see if rreturn. Status: Resolved as of 15-Dec-2017 Hospital discharge follow-up (Z09, V67.59) Status: Resolved as of 10-Jul-2018 Procedures Procedure Dates Details Colonoscopy, Screening Completed Comments: 11-03-2014 with biopsy right inguinal hernia Completed Date Value Details 02-Jul-2018 Chest PA and Lateral Result: Comments: See Note; NOTES: [facility] Imaging Services [address] [place] [address] Chest PA and Lateral MR#: [id number] Acct: [id number] Name: RONNI HEATH Rep #: [id number] : 1940 M 78 From: Martinez Smith MD PCP: Flory Pantoja MD Status: REG CLI Study: Chest PA and Lateral Date of Exam: 07/02/18 Exam# [id number] Ordering Dr: Flory Pantoja MD STUDY: X-RAY CHEST REASON FOR EXAM: Male, 78 years old. Fever and cough TECHNIQUE: PA and 2 lateral views of the chest. COMPARISON: 05/08/2018 FINDINGS: As are underexpanded with par tial but not yet complete resolution of previously described CHF. No demonstrated infiltrate or effusion. There is no demonstrated pleural abnormality. Stable cardiomegaly. Normal mediastinum and torrey. Normal visualized pulmonary arteries. There is atherosclerotic calcification of the aortic arch with tortuosity. There are diffuse degenerative changes of the visualized thoracic spine. Normal visuali zed ribs, clavicles, and shoulders. There is no demonstrated abnormality of the visualized soft tissue structures of the upper abdomen. RAD/Ches t PA and Lateral IMPRESSION: Underexpanded lungs with partial but not yet complete resolution of previously described CHF. 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 Chief Complaint: Cough, Productive sputum, Fatigue/Malaise/Weakn ess, Fever and Chills The patient is a 78 y/o M w/ PMHx: HTN, HLD, Diabetes mellitus type II w/ Neuropathy, Overweight, Hypogonadism, SARAH on qHS CPAP, GERD, CAD without any PCI history, Pulmonary Fibro sis w/ Chronic Hypoxic Respiratory Failure (4L NC) following w/ Rehabilitation Services Director [facility] who presents to the [facility] ED on 05/08/18 w/ history of ongoing productive cough, productive sputum, dyspnea worsened with any exertion in addition to fever and chills worsening over the last week. In the ED work-up included T 98.6, heart rate 94, BP 149/79, respiratory rate 27, 95% on 5 L nasal cannula, CBC with W BC 9.4, hemoglobin 12.2, platelet 138 without market left shift, BMP with sodium 135, glucose 205, lactic acid 2.2, troponin <0.015, CXR w/ chronic likely fibrotic changes (read as CHF) with suspe cted LLL infiltrate. In the ED patient administered Levaquin and NS therapy. Labs, Allergies, Home medications, Social Hx, PSurgHx, Family Hx per note below. Admission Review of Systems: CONSTITUTIONA L: No weight loss, + fever, chills, weakness or fatigue. HEENT: Eyes: No visual loss, blurred vision, double vision or yellow sclerae. Ears, Nose, Throat: No hearing loss, sneezing, congestion, runny no se or sore throat. SKIN: No rash or itching, lesions, wounds. CARDIOVASCULAR: No chest pain, chest pressure or chest discomfort, palpitations, edema, orthopnea, syncopal events. RESPIRATORY: + shortness of breath, cough or sputum, No wheezing, hemoptysis. GASTROINTESTINAL: No anorexia, nausea, vomiting or diarrhea, abdominal pain, melena, BRBPR. GENITOURINARY: No dysuria, frequency, urgency or retenti on. NEUROLOGICAL: + Generalized weakness. No headache, dizziness, syncope, paralysis, ataxia, numbness or tingling in the extremities, focal weakness, change in bowel or bladder control, seizure. MUSCUL OSKELETAL: No muscle, back pain, joint pain or stiffness. HEMATOLOGIC: No anemia, bleeding or bruising. LYMPHATICS: No enlarged nodes. No history of splenectomy. PSYCHIATRIC: No history of depression or anxiety. ENDOCRINOLOGIC: No reports of sweating, cold or heat intolerance. No polyuria or polydipsia. ALLERGIES: No history of asthma, hives, eczema or rhinitis. Admission VS: As noted below. Physica l Examination: General: awake, alert, oriented x 3 and cooperative, seated upright in the ED bed in no apparent distress, fatigued appearance. Skin: normal color, turgor, no icterus, cyanosis. HEENT: AT /NC, EOMI, PERRLA, MMM, no carotid bruits or JVD noted. Lungs: Diffusely diminished BS, > bases, typical diffuse crinkling/crackles throughout, no wheezing. Heart: Regular rate and rhythm; no ga llop, rub audible. Abdomen: soft, overweight, NTTP, ND, normal BS, no HSM. Extremities: no cyanosis, clubbing, BL ankle edema. Neurological: patient awake, alert, oriented x 3; cognitive function intact ; pupils equally reactive to light and accomodation; cranial nerves II-XII grossly normal, moving all 4 extremities, no focal deficits, strength severely globally decreased. Psychiatric: affect appears fatigued, no acute evidence of depressive or anxiety feelings. Assessment and Plan: The patient is a 78 y/o M w/ PMHx: HTN, HLD, Diabetes mellitus type II w/ Neuropathy, Overweight, Hypogonadism, SARAH o n qHS CPAP, GERD, CAD without any PCI history, Pulmonary Fibrosis w/ Chronic Hypoxic Respiratory Failure (4L NC) following w/ Rehabilitation Services Director [facility] who presents to the [facility] ED on 05/08/18 w/ history of ongoing productive cough, productive sputum, dyspnea worsened with any exertion in addition to fever and chills worsening over the last week. (1) Community Acquired Pneumonia complicated by underlying pulmonary disease with severe pulmonary fibrosis w/ Chronic Hypoxic Respiratory Failure: ED work-up included T 98.6, heart rate 94, BP 149/79, respiratory rate 27, 95% on 5 L nasal cannula, CBC with W BC 9.4, hemoglobin 12.2, platelet 138 without market left shift, BMP with sodium 135, glucose 205, lactic acid 2.2, troponin <0.015, CXR w/ chronic likely fibrotic changes (read as CHF) with jenny pected LLL infiltrate. Will admit to [facility], maintain on oxygen with wean as tolerated to home oxygen supplementation, continue ATC duonebs, PRN albuterol, maintain on IV Rocephin and Azithromycin, HOB, IS parameters w/ pending sputum cultures, respiratory viral panel and urine antigens. Additional Co-morbidities: Diabetes mellitus type II: Hold oral home regimen, continue home insulin regimen, ADA diet, accu checks w/ ISS. Hyperlipidemia: Continue home statin regimen. Anxiety and Depression: Continue home sertraline regimen. SARAH: CPAP q HS. Inpatient E AND M: 27113 Init Hosp L3 05/08/18 1648 &#6 0;Electronically signed by Jada Diop > Date Jada Diop cc: PB Dickson; Jada Diop; Flory Pantoja MD * Signed Problem L ist (1) Obstructive sleep apnea of adult Status: Chronic (2) Pulmonary fibrosis Status: Chronic (3) Chronic respiratory failure Status: Chronic (4) Diabetic neuropathy Status: Chronic (5) Hypertensi on Status: Chronic (6) Gastro-esophageal reflux Status: Chronic (7) Hyperlipidemia Status: Chronic (8) Type 2 diabetes mellitus Status: Chronic (9) Acute pancreatitis Status: Resolved (10) Hypogona dism male Status: Chronic (11) Coronary artery arteriosclerosis Status: Chronic History of Present Illness Date of Admission: 05/08/18 Chief Complaint: Shortness of breath, cough. The patient is a 78 year old M who presents emergency room due to shortness of breath, productive cough with nunez sputum. Patient reports intermittent fever, chills. Associated general malaise. Patient has chronic hypoxic respiratory failure due to pulmonary fibrosis and wears 4 L nasal cannula continuously at baseline. He notes his oxygen saturation at rest was in the 70s today on baseline home oxygen. Patient states s ymptoms have been ongoing for approximately 1 week. Patient follows with Dr. Pressley as well as mounter smoking pipe at [facility] which he was referred to by Dr. Pressley. Patient has a past medical history of chroni c hypoxic respiratory failure, pulmonary fibrosis, obstructive sleep apnea, hypertension, hyperlipidemia, type 2 diabetes mellitus, CAD, obesity, depression. Past Medical History Past Medical History (Chronic Problems): Chronic Problems Obstructive sleep apnea of adult (Chronic) Pulmonary fibrosis (Chronic) Chronic respiratory failure (Chronic) Diabetic neuropathy (Chronic) Hypertension (Chronic) G kevin-esophageal reflux (Chronic) Hyperlipidemia (Chronic) Type 2 diabetes mellitus (Chronic) Hypogonadism male (Chronic) Coronary artery arteriosclerosis (Chronic) Allergies No Known Allergies Aller gy (Verified 06/27/17 00:39) Home Medications: Ambulatory Orders Medication Instructions Recorded Surgical History: herniorrhaphy, - - Bilateral eyelid surgery Psychiatric History: Depression Live s: Spouse/ Significant Other Smoking Status: Former smoker Alcohol: None Drugs: None - *Family History Maternal History Items: Heart Disease Paternal History Items: - - Bone and prostate cancer. Review of Systems Constitutional: Reports: Chills, Fever, Malaise HEENT: Denies: Head Aches, Sinus Congestion, Sinus Drainage, Sore Throat Cardiovascular: Denies: Chest Pain, Edema, Light Headedness, Palpitations, Syncope Respiratory: Reports: Cough, Shortness of Breath, Sputum production Gastrointestinal: Denies: Abdominal Pain, Nausea, Vomiting Genitourinary: Denies: Dysuria Musculoskeletal: Denie s: Joint Pain, Joint Tenderness Skin: Denies: Rash, Wounds Neurological: Denies: Numbness, Tingling, Focal weakness Psychiatric: Reports: Depression. Denies: Anxiety, Homicidal Ideations, Suicidal Ideat ions Hematologic/ Lymphatic: Denies: Easy Bruising, Easy Bleeding VTE Information - Inpt Only VTE Present on Admission: No VTE Mechan Device Prophylaxis: None VTE Pharm Prophylaxis ordered?: Yes - Phy sical Exam General: Alert, Oriented x3, Cooperative HEENT: Atraumatic, PERRLA, EOMI, Normocephalic Neck: Supple, No JVD, Negative Carotid Bruits Lungs: Diminished, - - Course crackles bilateral bases Ca rdiovascular: Regular rate, Regular Rhythm, Normal S1, Normal S2, Murmur Abdomen: Bowel Sounds Present, Soft, Non Tender, Non-Distended, Obese Extremities: No clubbing, No cyanosis, No edema, Capillary Refill Less than 3 Seconds Skin: No rashes, No breakdown Musculoskeletal: No Tenderness to Palpation of Joints or Extremities Neurological: Cranial nerves II-XII grossly intact, Neuro grossly intact Psy ch/Mental Status: Normal Affect, Appropriate Vital Signs Temp Pulse Resp BP Pulse Ox 98.6 F 94 20 H 135/75 H 94 05/08/18 12:54 05/08/18 15:13 05/08/18 15:13 05/08/18 15:13 05/08/18 15:13 Oxygen Flow Rate (L/min) 5 Oxygen Delivery Method Room Air Weight: 177 lb 4.026 oz Body Mass Index (BMI) 26.9 Microbiology Past 72 Hours 05/08/18 15:21 Influenza Types A,B Direct FA (TANJA) - Final Mucosa - Nose Laboratory Tests Past 24 Hrs Assessment/Plan All Active Problems Acute pancreatitis (Resolved) 1. Acute on chronic hypoxic respiratory failure secondary to community-acquired left lower lobe pneu monia complicated by pulmonary fibrosis- Lactic acid 2.2. Afebrile. No leukocytosis. Does not meet sepsis criteria. Chest x-ray on admission showed cardiomegaly and CHF however feel this is due to under lying pulmonary fibrosis. Negative for influenza. Obtain respiratory panel. Blood cultures drawn in ER, pending. Obtain sputum culture. Check urine for strep and Legionella. Albuterol and DuoNeb aerosol s. Continue supplement oxygen to maintain O2 at or above 90%. IV Rocephin and Azithromycin. IS. Mucinex 1200mg BID. PT/OT. 2. Obstructive sleep apnea- continue CPAP nightly with supplemental oxygen. 3. Hypertension-stable, continue home benazepril regimen. 4. Hyperlipidemia-continue statin. 5. Type 2 diabetes mellitus with diabetic kzkwolkzoo-Rseb-Uzpdc before meals at bedtime. Continue home Levemi r and Humalog regimen. Continue home gabapentin regimen. 6. CAD-continue aspirin, statin. Troponin negative x1 in ER. Patient denies chest pain. 7. Obesity- Encourage diet and lifestyle modifications. Nutrition consult. 8. Depression-continue home Zoloft regimen. 9. Chronic normocytic anemia-stable. DVT prophylaxis-Lovenox sc. This patient was seen by PB Shaffer under the supervision of Dr. Diop. 05/08/18 1628 <Electronically signed by Anushka DIANAC> Date Anushka AMBRIZ 05/08/18 1633<Elect ronically signed by Jada Diop > Cosigner Signature: Date (if applicable) Jada Diop CC: PB Dickson; Jada Diop; Flory Pantoja MD Signed 08-May-2018 History and Physical Exam Result: Comments: See Note; NOTES: [facility] Medical Records Department [address] [place] [address] History and Physical 05/08/18 1603 MR#: [id number] Acct: [id number] Name: KUMARSaul Rep #: [id number] : 1940 78 From: Anushka AMBRIZ PCP: Flory Pantoja MD Status: REG ER Y Location: ED Problem List (1) Obstructive sleep apnea of adult Status: Chronic (2) Pulm onary fibrosis Status: Chronic (3) Chronic respiratory failure Status: Chronic (4) Diabetic neuropathy Status: Chronic (5) Hypertension Status: Chronic (6) Gastro-esophageal reflux Status: Chronic (7) Hyperlipidemia Status: Chronic (8) Type 2 diabetes mellitus Status: Chronic (9) Acute pancreatitis Status: Resolved (10) Hypogonadism male Status: Chronic (11) Coronary artery arteriosclerosis S tatus: Chronic History of Present Illness Date of Admission: 05/08/18 Chief Complaint: Shortness of breath, cough. The patient is a 78 year old M who presents emergency room due to shortness of breath , productive cough with nunez sputum. Patient reports intermittent fever, chills. Associated general malaise. Patient has chronic hypoxic respiratory failure due to pulmonary fibrosis and wears 4 L nasal cannula continuously at baseline. He notes his oxygen saturation at rest was in the 70s today on baseline home oxygen. Patient states symptoms have been ongoing for approximately 1 week. Patient follow s with Dr. Pressley as well as mounter smoking pipe at [facility] which he was referred to by Dr. Pressley. Patient has a past medical history of chronic hypoxic respiratory failure, pulmonary fibrosis, obstructive sle ep apnea, hypertension, hyperlipidemia, type 2 diabetes mellitus, CAD, obesity, depression. Past Medical History Past Medical History (Chronic Problems): Chronic Problems Obstructive sleep apnea of a dult (Chronic) Pulmonary fibrosis (Chronic) Chronic respiratory failure (Chronic) Diabetic neuropathy (Chronic) Hypertension (Chronic) Gastro-esophageal reflux (Chronic) Hyperlipidemia (Chronic) Type 2 diabetes mellitus (Chronic) Hypogonadism male (Chronic) Coronary artery arteriosclerosis (Chronic) Allergies No Known Allergies Allergy (Verified 06/27/17 00:39) Home Medications: Ambulatory Order s Medication Instructions Recorded Surgical History: herniorrhaphy, - - Bilateral eyelid surgery Psychiatric History: Depression Lives: Spouse/ Significant Other Smoking Status: Former smoker Alcohol : None Drugs: None - *Family History Maternal History Items: Heart Disease Paternal History Items: - - Bone and prostate cancer. Review of Systems Constitutional: Reports: Chills, Fever, Malais e HEENT: Denies: Head Aches, Sinus Congestion, Sinus Drainage, Sore Throat Cardiovascular: Denies: Chest Pain, Edema, Light Headedness, Palpitations, Syncope Respiratory: Reports: Cough, Shortness of Br eath, Sputum production Gastrointestinal: Denies: Abdominal Pain, Nausea, Vomiting Genitourinary: Denies: Dysuria Musculoskeletal: Denies: Joint Pain, Joint Tenderness Skin: Denies: Rash, Wounds Neurolo gical: Denies: Numbness, Tingling, Focal weakness Psychiatric: Reports: Depression. Denies: Anxiety, Homicidal Ideations, Suicidal Ideations Hematologic/ Lymphatic: Denies: Easy Bruising, Easy Bleeding VTE Information - Inpt Only VTE Present on Admission: No VTE Mechan Device Prophylaxis: None VTE Pharm Prophylaxis ordered?: Yes - Physical Exam General: Alert, Oriented x3, Cooperative HEENT: Atrauma tic, PERRLA, EOMI, Normocephalic Neck: Supple, No JVD, Negative Carotid Bruits Lungs: Diminished, - - Course crackles bilateral bases Cardiovascular: Regular rate, Regular Rhythm, Normal S1, Normal S2, Murmur Abdomen: Bowel Sounds Present, Soft, Non Tender, Non-Distended, Obese Extremities: No clubbing, No cyanosis, No edema, Capillary Refill Less than 3 Seconds Skin: No rashes, No breakdown Musculosk eletal: No Tenderness to Palpation of Joints or Extremities Neurological: Cranial nerves II-XII grossly intact, Neuro grossly intact Psych/Mental Status: Normal Affect, Appropriate Vital Signs Temp Pul se Resp BP Pulse Ox 98.6 F 94 20 H 135/75 H 94 05/08/18 12:54 05/08/18 15:13 05/08/18 15:13 05/08/18 15:13 05/08/18 15:13 Oxygen Flow Rate (L/min) 5 Oxygen Delivery Method Room Air Weight: 177 lb 4.0 26 oz Body Mass Index (BMI) 26.9 Microbiology Past 72 Hours 05/08/18 15:21 Influenza Types A,B Direct FA (TANJA) - Final Mucosa - Nose Laboratory Tests Past 24 Hrs Assessment/Plan All Active Proble ms Acute pancreatitis (Resolved) 1. Acute on chronic hypoxic respiratory failure secondary to community-acquired left lower lobe pneumonia complicated by pulmonary fibrosis- Lactic acid 2.2. Afebrile . No leukocytosis. Does not meet sepsis criteria. Chest x-ray on admission showed cardiomegaly and CHF however feel this is due to underlying pulmonary fibrosis. Negative for influenza. Obtain respirato ry panel. Blood cultures drawn in ER, pending. Obtain sputum culture. Check urine for strep and Legionella. Albuterol and DuoNeb aerosols. Continue supplement oxygen to maintain O2 at or above 90%. IV R ocephin and Azithromycin. IS. Mucinex 1200mg BID. PT/OT. 2. Obstructive sleep apnea-continue CPAP nightly with supplemental oxygen. 3. Hypertension-stable, continue home benazepril regimen. 4. Hyperl ipidemia-continue statin. 5. Type 2 diabetes mellitus with diabetic lakmxajvqf-Jwsd-Fjpnk before meals at bedtime. Continue home Levemir and Humalog regimen. Continue home gabapentin regimen. 6. CAD-c ontinue aspirin, statin. Troponin negative x1 in ER. Patient denies chest pain. 7. Obesity- Encourage diet and lifestyle modifications. Nutrition consult. 8. Depression-continue home Zoloft regimen. 9. Chronic normocytic anemia-stable. DVT prophylaxis-Lovenox sc. This patient was seen by PB Shaffer under the supervision of Dr. Diop. 05/08/18 1628 <Electronically signed by Liz DIANAC> Date Anushka DIANAC 05/08/18 1633<Electronically signed by Jada Diop > Cosigner Signature: D ate (if applicable) Jada Diop CC: PB Dickson; Jada Diop; Flory Pantoja MD Signed 08-May-2018 Chest PA and Lateral Result: Comments: See Note; NOTES: [facility] Imaging Services [address] [place] [address] Chest PA and Lateral MR#: [id number] Acct: [id number] Name: KumarRonni Latricia Rep #: [id number] : [id number] M 78 From: Saad Berry MD PCP: Flory Pantoja MD Status: REG ER Study: Chest PA and Lateral Date of Exam: 05/08/18 Exam# [id number] Ordering Dr: Rodolfo Stanford MD STUDY: X-RAY CHEST REASON FOR EXAM: Male, 78 years old. Cough. TECHNIQUE: AP and lateral views of the chest. COMPARISON: Comparison is made with prior examination dated July 01, 2017. FINDINGS: EKG electrode are seen. There is evidence of vascular congestion and CHF. There is no demonstrated pleural abnormality. There is severe cardiac enlargement. Normal mediastinum an d torrey. Normal visualized pulmonary arteries. There is atherosclerotic calcification of the aortic arch with tortuosity. There are diffuse degenerative changes of the visualized thoracic spine. Mild lo ss of height of mid dorsal vertebrae. Normal visualized ribs, clavicles, and shoulders. There is no demonstrated abnormality of the visualized soft tissue structures of the upper abdomen. RAD/Chest PA and Lateral IMPRESSION: Cardiomegaly and CHF. 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 use to live in [place] Status: Active Living Situation Comments: live with Status: Active Non Drinker/No Alcohol Use Status: Active Non Smoker/No Tobacco Use Comments: smoked 3 ppd from Status: Active Vital Signs Date Test Result Details [id number]-Rcb-[id number]:44 Pulse 67 /min Comments: Pattern: Regular Respiration Rate 18 /min O2 SAT 95 % Comments: 10L O2 BP Systolic 100 mm[Hg] Comments: Patient Position: Sitting BP Diastolic 65 mm[Hg] Comments: Patient Position: Sitting 79-Sxy-712818:41 Pulse 80 /min Comments: Pattern: Regular Respiration Rate 24 /min O2 SAT 98 % Comments: 4L O2 BP Systolic 118 mm[Hg] Comments: Patient Position: Sitting BP Diastolic 70 mm[Hg] Comments: Patient Position: Sitting :25 Pulse 98 /min Comments: Pattern: Regular Respiration Rate 16 /min O2 SAT 98 % Comments: 4L O2 BP Systolic 122 mm[Hg] Comments: Patient Position: Sitting BP Diastolic 76 mm[Hg] Comments: Patient Position: Sitting Weight 245 lb :37 Temperature 97.9 f Comments: Method: Oral Pulse 94 /min Comments: Pattern: Regular Respiration Rate 20 /min O2 SAT 98 % Comments: Room air BP Systolic 112 mm[Hg] Comments: Patient Position: Sitting BP Diastolic 76 mm[Hg] Comments: Patient Position: Sitting 6-Upr-842825:20 Comments: sitting at rest with PO when walking short distance drops down. Temperature 98.5 f Comments: Method: Oral Pulse 98 /min Comments: Pattern: Regular Respiration Rate 22 /min O2 SAT 97 % Comments: Room air BP Systolic 112 mm[Hg] Comments: Patient Position: Sitting BP Diastolic 68 mm[Hg] Comments: Patient Position: Sitting Results Date Description Value Details :45 CBC W/Diff, Automated Comments: PLEASE DO MANUAL PERIPHERAL SMEAR; REQUESTED TO DRAW INCITRATE NON CLUMPING TUBE (FOR PLATELETS)PLATELET CLUMPING NOT OBSERVED ON PERIPHERAL SMEAR; RESULTEDFROM NON-CITRATE TUBE.[facility] [address] [facility]. [place], [place], [id number] RED CELL MORPH NORM C+C {NORMAL} (Normal) PLT EST ADEQUATE (Normal) MONOCYTE 8 % (Normal) Range: 0-10 LYMPH 19 % (Normal) Range: 19-41 BAND 1 % (Normal) Range: 0-5 SEGS 72 % (Abnormal) Range: 47-70 CELLS COUNTED 100 (Normal) Absolute Lymph 2.11 {X10_3/ul} (Normal) Range: 0.83-4.51 Absolute Neut 8.1 {X10_3/uL} (Abnormal) Range: 2.0-7.7 MPV 9.8 fL (Normal) Range: 6.2-12.0 PLT 122 K/mm3 (Abnormal) Range: 150-450 RDW SD 50.0 fL (Abnormal) Range: 35.1-43.9 RDW CV 15.3 % (Abnormal) Range: 11.6-14.6 MCHC 33.3 {g/gl} (Normal) Range: 32-36 MCH 29.9 pg (Normal) Range: 27.0-32.0 MCV 89.8 fL (Normal) Range: 80-94 HCT 35.4 % (Abnormal) Range: 40-54 HGB 11.8 g/dL (Abnormal) Range: 13.0-16.5 RBC 3.94 {M/mm3} (Abnormal) Range: 4.6-6.2 WBC 11.1 K/mm3 (Abnormal) Range: 4.4-11.0 02-Jul-20189:45 Erythrocyte Sed Rate Comments: ADD TO [address] [place], [place], [phone] SED RATE 39 mm/h (Abnormal) Range: 0-20 88-Wzo-839813:45 Platelet Count Comments: BELEN CITRATE NON-CLUMPING TUBE [facility] [address] [place], [place], [phone] PLT 67 K/mm3 (Abnormal) Range: 150-450 3-Vge-416716:00 CBC W/Diff, Automated Comments: [facility] [address] [place], [place], [phone] Absolute Lymph 0.86 {X10_3/ul} (Normal) Range: 0.83-4.51 Absolute Neut 10.0 {X10_3/uL} (Abnormal) Range: 2.0-7.7 IM GRAN % 0.800 % (Normal) Range: 0.0-0.9 Comments: IG% - Immature Granulocytes (promyelocytes, myelocytes andmetamyelocytes) > 1% indicates that a LEFT SHIFT is Present. BASO% 0.1 % (Normal) Range: 0-1 EO% 0.3 % (Normal) Range: 0-5 MONO% 6.3 % (Normal) Range: 0-10 LY% 7.3 % (Abnormal) Range: 19-41 NEUT% 85.2 % (Abnormal) Range: 47-70 MPV 10.8 fL (Normal) Range: 6.2-12.0 PLT 67 K/mm3 (Abnormal) Range: 150-450 RDW SD 46.3 fL (Abnormal) Range: 35.1-43.9 RDW CV 14.1 % (Normal) Range: 11.6-14.6 MCHC 33.0 {g/gl} (Normal) Range: 32-36 MCH 30.3 pg (Normal) Range: 27.0-32.0 MCV 92.0 fL (Normal) Range: 80-94 HCT 37.0 % (Abnormal) Range: 40-54 HGB 12.2 g/dL (Abnormal) Range: 13.0-16.5 RBC 4.02 {M/mm3} (Abnormal) Range: 4.6-6.2 WBC 11.7 K/mm3 (Abnormal) Range: 4.4-11.0 4-Qbz-764774:00 Comprehensive Metabolic Profil Comments: [facility] [address] [place], [place], [address] GAP 8 (Normal) Range: 5-15 CO2 30.0 mmol/L (Normal) Range: 21.0-32.0 CL 98 mmol/L (Normal) Range: 98-107 K 4.3 mmol/L (Normal) Range: 3.5-5.1 NA 136 mmol/L (Normal) Range: 136-145 T BILI 0.70 mg/dL (Normal) Range: 0.20-1.00 ALT 70 U/L (Abnormal) Range: 16-61 ALK P 86 U/L (Normal) Range: 45-117 AST 30 U/L (Normal) Range: 15-37 CA 8.7 mg/dL (Normal) Range: 8.5-10.1 A/G 0.9 {RATIO} (Normal) Range: 0.9-2.4 GLOB 3.4 g/dL (Normal) Range: 2.2-4.2 ALB 3.2 g/dL (Normal) Range: 3.2-5.0 T PROT 6.6 g/dL (Normal) Range: 6.4-8.2 BUN/CRE 27.6 {RATIO} (Abnormal) Range: 10-20 EST GFR - AA 114 mL/min (Normal) Comments: GFR Calc EST GFR 95 mL/min (Normal) Comments: Non- GFR Calc CREAT,SERUM 0.83 mg/dL (Normal) Range: 0.70-1.30 Comments: The validity of the calculated GFR AND GFRAA in patients over70 years has not been determined. Clinical correlation isessential. BUN 23 mg/dL (Abnormal) Range: 7-18 GLU 230 mg/dL (Abnormal) Range: 74-106 Comments: Glucose result greater than or equal to 200 mg/dLsuggests DIABETES MELLITUS per A.D.A. criteria.Please note revised GLUCOSE reference range iromdqmof68/02/2018. 1-Efh-913908:00 Hemoglobin A1c Comments: [facility] [address] [place], [address] HGB A1C 9.7 % (Abnormal) Range: 4.2-6.3 7-Hzp-812580:00 Magnesium Comments: [facility] [address] [place], [address] MG 2.1 mg/dL (Normal) Range: 1.6-2.6 2-Ykt-870881:00 Methylmalonic Acid Bld Comments: [facility] (refer to report for specific site)refer to report for address and phone number METHYLM Comments: TEST RESULT LIMITSMethylmalonic Acid, SerumMethylmalonic Acid, Serum 187 nmol/L 0 - 378Disclaimer:This test was developed and its performance characteristicsde 024104 (Normal) termined by [facility]. It has not been cleared or approvedby the Food and Drug Administration. TESTING PERFORMED AT [facility]. ORIGINAL REPORT ON FI LE IN LAB CONTAINS ADDITIONAL TEST SITE INFORMATION. 3-Mal-496916:00 NMR Lipoprofile Comments: [facility] (refer to report for specific site)refer to report for address and phone number NMR Comments: TEST RESULT LIMITSNMR LipoProfile LDL Particle Number LDL-P 861 nmol/L <1000 Low < 10 LIPOPROFILE (Normal) 00 Moderate 1000 - 1299 Borderline-High 1300 - 1599 High 1600 - 2000 Very High > 2000 Lipids LDL-C 68 mg/dL 0 - 99 Optimal < 100 Above optimal 100 - 129 Borderline 130 - 159 High 160 - 189 Very high > 189Comm ent: LDL-C is inaccurate if patient is non-fasting. HDL-C 93 mg/dL >39 Triglycerides 86 mg/dL 0 - 149 Cholesterol, Total 178 mg/dL 100 - 199 LDL and HDL Particles HDL-P (Total) 44.5 umol/L >=30.5 Small LDL-P <90 nmol/L <=527 LDL Size 21.3 nm >20.5 INTERPRETATIVE INFORMATION PARTICLE CONCENTRATION AND SIZE <--Lower CVD Risk Higher CVD Risk--> LDL AND HDL PARTICLES Percentile in Reference Population HDL-P (total) High 75th 50th 25th Low >34.9 34.9 30.5 26.7 <26.7 Small LDL-P Low 25th 50th 75th High <117 117 527 839 >839 LDL Size <-Large (Pattern A)-> <-Small (Pattern B)-> 23.0 20.6 20.5 19.0 Comment:Small LDL-P and LDL Size are associated with CVD risk, butnot after LDL-P is taken into account. jose assays were developed and their performancecharacteristics determined by [employer]. These assays havenot been cleared by the [place] Food and Drug Administration. Theclinical utility of these laborator y values have not beenfully established.Insulin Resistance ScoreLP-IR Score 40 <=45 INSULIN RESISTANCE MARKER <--Insulin Sensitive Insulin Resistant- -> Percentile in Reference Population Insulin Resistance Score LP-IR Score Low 25th 50th 75th High <27 27 45 63 &gt ;63Comment:LP-IR Score is inaccurate if patient is non-fasting.The LP-IR score is a laboratory developed index that hasbeen associated with insulin resistance and diabetes riskand should be used as one component of a physician'sclinical assessment. The LP-IR score listed above has notbeen cleared by the US Food and Drug Administration. TESTING P ERFORMED AT [facility]. ORIGINAL REPORT ON FILE IN LAB CONTAINS ADDITIONAL TEST SITE INFORMATION. 3 Vitamin B12 1730 Comments: [facility] [address] [place], [place], [address] - pg/mL Range: 211-911 D (Abnormal e ) c - 2 0 1 8 1 2 : 0 0 0-Ald-071283:05 Basic Metabolic Profile (BMP) Comments: [facility] [address] [place], [place], [address] GAP 8 (Normal) Range: 5-15 CO2 29.0 mmol/L (Normal) Range: 21.0-32.0 CL 98 mmol/L (Normal) Range: 98-107 K 4.3 mmol/L (Normal) Range: 3.5-5.1 NA 135 mmol/L (Abnormal) Range: 136-145 CA 8.9 mg/dL (Normal) Range: 8.5-10.1 BUN/CRE 17.2 {RATIO} (Normal) Range: 10-20 Estimated CRCL 62.31 ml/min (Normal) EST GFR - AA 101 mL/min (Normal) Comments: GFR Calc EST GFR 83 mL/min (Normal) Comments: Non- GFR Calc CREAT,SERUM 0.93 mg/dL (Normal) Range: 0.70-1.30 Comments: The validity of the calculated GFR AND GFRAA in patients over70 years has not been determined. Clinical correlation isessential. BUN 16 mg/dL (Normal) Range: 7-18 GLU 205 mg/dL (Abnormal) Range: 74-106 Comments: Glucose result greater than or equal to 200 mg/dLsuggests DIABETES MELLITUS per A.D.A. criteria.Please note revised GLUCOSE reference range /02/2018. 7-Crq-049374:05 CBC W/Diff, Automated Comments: [facility] [address] [place], [place], [phone] Absolute Lymph 0.74 {X10_3/ul} (Abnormal) Range: 0.83-4.51 Absolute Neut 7.1 {X10_3/uL} (Normal) Range: 2.0-7.7 IM GRAN % 0.100 % (Normal) Range: 0.0-0.9 Comments: IG% - Immature Granulocytes (promyelocytes, myelocytes andmetamyelocytes) > 1% indicates that a LEFT SHIFT is Present. BASO% 0.2 % (Normal) Range: 0-1 EO% 2.8 % (Normal) Range: 0-5 MONO% 13.1 % (Abnormal) Range: 0-10 LY% 7.9 % (Abnormal) Range: 19-41 NEUT% 75.9 % (Abnormal) Range: 47-70 MPV 10.3 fL (Normal) Range: 6.2-12.0 PLT 138 K/mm3 (Abnormal) Range: 150-450 RDW SD 47.4 fL (Abnormal) Range: 35.1-43.9 RDW CV 14.4 % (Normal) Range: 11.6-14.6 MCHC 33.6 {g/gl} (Normal) Range: 32-36 MCH 30.5 pg (Normal) Range: 27.0-32.0 MCV 90.8 fL (Normal) Range: 80-94 HCT 36.3 % (Abnormal) Range: 40-54 HGB 12.2 g/dL (Abnormal) Range: 13.0-16.5 RBC 4.00 {M/mm3} (Abnormal) Range: 4.6-6.2 WBC 9.4 K/mm3 (Normal) Range: 4.4-11.0 8-Kqw-731268:05 Lactic Acid Comments: Yes/No query for Sepsis Lactate Rule [facility] [address] [place], [place], [address] LACTIC ACID 2.2 mmol/L (Abnormal) Range: 0.4-2.0 Comments: Critical Result(s) Called at: 14:48:04 05/08/2018 by: Citlaly Martinez RN 9-Cak-842129:05 Troponin-I Comments: [facility] [address] [facility] [place], [place], [address] TROPONIN-I < 0.015 ng/mL (Normal) Comments: TROPONIN-I EXPECTED VALUES <0.045 Negative 0.045 - 0.590 Consistent with Cardiac Damage > OR = 0.600 Critical Value Not every elevated troponin is indicative of NM. T hesevalues should be used with clinical judgement in examiningthe patient's clinical picture for diagnosis. To establisha diagnosis of NM versus myocardial injury, there must be ademonstrated rise and/ or fall in the troponin values, inaddition to ischemic symptoms, EKG changes, new regionalwall motion abnormality, and/or angiographical evidence. PLEASE NOTE: REFERENCE RANGES EDITED 11/10/1723-Mar-201871-Ivz-544070:14 Comp. Metabolic Panel Comments: PATIENT NOT FASTINGPERFORMED BY: [facility] [address] [id number] BY: [facility] [address] [facility] [id number] (14) ALT (SGPT) 26 [iU]/L (Normal) Range: 0-44 AST (SGOT) 49 [iU]/L Range: 0-40 (Abnormal) Alkaline Phosphatase 82 [iU]/L (Normal) Range: 39-117 Bilirubin, Total 0.6 mg/dL (Normal) Range: 0.0-1.2 A/G Ratio 1.3 (Normal) Range: 1.2-2.2 Globulin, Total 3.1 g/dL (Normal) Range: 1.5-4.5 Albumin 4.1 g/dL (Normal) Range: 3.5-4.8 Protein, Total 7.2 g/dL (Normal) Range: 6.0-8.5 Calcium 9.3 mg/dL (Normal) Range: 8.6-10.2 Carbon Dioxide, Total 24 mmol/L (Normal) Range: 20-29 Chloride 98 mmol/L (Normal) Range: 96-106 Potassium 4.4 mmol/L (Normal) Range: 3.5-5.2 Sodium 140 mmol/L (Normal) Range: 134-144 BUN/Creatinine Ratio 13 (Normal) Range: 10-24 eGFR If Africn Am 93 mL/min/1.73 (Normal) eGFR If NonAfricn Am 80 mL/min/1.73 (Normal) Creatinine 0.91 mg/dL (Normal) Range: 0.76-1.27 BUN 12 mg/dL (Normal) Range: 8-27 Glucose 258 mg/dL Range: 65-99 (Abnormal) Hemoglobin A1c 10.8 % (Abnormal) Comments: PATIENT NOT FASTINGPERFORMED BY: [employer] [id number] BY: [employer] [id number] 4:14 Range: 4.8-5.6 Comments: . Prediabetes: 5.7 - 6.4 Diabetes: >6.4 Glycemic control for adults with diabetes: <7.0 94-Utt-896927:14 NMR LipoProfile Comments: PATIENT NOT FASTINGPERFORMED BY: [employer] [id number] BY: [employer] [facility] [id number] Inf ormation: NURSE DRAW LP-IR Score 52 (Abnormal) Comments: INSULIN RESISTANCE MARKER <--Insulin Sensitive Insulin Resistant--> Percentile in Reference PopulationInsulin Resistance ScoreLP-IR Score Low 25th 50th 75th High <27 27 45 63 >63LP-IR Score is inaccurate if patient is non-fasting. .The LP-IR score is a laboratory developed i [facility] [place] that has beenassociated with insulin resistance and diabetes risk and should beused as one component of a physician's clinical assessment. TheLP-IR score listed above has not been cleared by the US Food andDrug Administration. LDL Size 21.0 nm (Normal) Comments: INTERPRETATIVE INFORMATION PARTICLE CONCENTRATION AND SIZE <--Lower CVD Risk Highe r CVD Risk--> LDL AND HDL PARTICLES Percentile in Reference Population HDL-P (total) High 75th 50th 25th Low >34.9 34.9 30.5 26.7 <26.7 . Small LDL-P Low 25th 50th 75th High <117 117 527 839 >839 . LDL Size <-Large (Pattern A)-> <-Small (Pattern B)-> 23.0 20.6 20.5 19.0 Small LDL-P and LDL Size are associated with CVD risk, but not afterLDL-P is taken into account. .These assays were developed and their performance characteristicsdetermined by [employer]. These assays have not been cleared by [employer] Food and Drug Administration. The clinical utility of theselaboratory values have not been fully established. Small LDL-P 423 nmol/L (Normal) HDL-P (Total) 30.9 umol/L (Normal) Cholesterol, Total 157 mg/dL (Normal) Range: 100-199 Triglycerides 146 mg/dL (Normal) Range: 0-149 HDL-C 49 mg/dL (Normal) LDL-C 79 mg/dL (Normal) Range: 0-99 Comments: . Optimal < 100 Above optimal 100 - 129 Borderline 1 30 - 159 High 160 - 189 Very high > 189 .LDL-C is inaccurate if patient is non-fasting. LDL-P 1086 nmol/L (Abnormal) Comments: Low < 1000 Moderate 1000 - 1299 Borderline-High 1300 - 1599 High 1600 - 2000 Very High > 2000 58-Rqt-435810:14 MAGNESIUM ([id number]) Comments: PATIENT NOT FASTINGPERFORMED BY: BN LabBobby Bear Fun & FitnessSaint Michael's Medical CenterTqlfyqnjda6655 [facility] [id number] BY: LabBobby Bear Fun & FitnessOcean Medical CenterWjknxb6004 [facility] [id number] Magnesium 1.7 mg/dL (Normal) Range: 1.6-2.3 06-Ssc-315906:14 CBC, PLATELETS & MANUAL Comments: PATIENT NOT FASTINGPERFORMED BY: KATHY [facility] [address] [facility] [id number] BY: ELVIN [facility] Revqvo5078 [facility] [id number] DIFF ([id number]) Hematology Comments: Note: (Normal) Comments: Verified by microscopic examination. Immature Grans (Abs) 0.0 {x10E3/uL} (Normal) Range: 0.0-0.1 Immature Granulocytes 0 % (Normal) Baso (Absolute) 0.0 {x10E3/uL} (Normal) Range: 0.0-0.2 Eos (Absolute) 0.3 {x10E3/uL} (Normal) Range: 0.0-0.4 Monocytes(Absolute) 0.5 {x10E3/uL} (Normal) Range: 0.1-0.9 Lymphs (Absolute) 1.3 {x10E3/uL} (Normal) Range: 0.7-3.1 Neutrophils (Absolute) 4.1 {x10E3/uL} (Normal) Range: 1.4-7.0 Basos 0 % (Normal) Eos 4 % (Normal) Monocytes 8 % (Normal) Lymphs 21 % (Normal) Neutrophils 67 % (Normal) Platelets 94 {x10E3/uL} (Abnormal) Range: 150-379 Comments: Platelet count verified by examination of peripheral blood smear. RDW 14.0 % (Normal) Range: 12.3-15.4 MCHC 33.3 g/dL (Normal) Range: 31.5-35.7 MCH 29.9 pg (Normal) Range: 26.6-33.0 MCV 90 fL (Normal) Range: 79-97 Hematocrit 37.5 % (Normal) Range: 37.5-51.0 Hemoglobin 12.5 g/dL (Abnormal) Range: 13.0-17.7 RBC 4.18 {x10E6/uL} (Normal) Range: 4.14-5.80 WBC 6.2 {x10E3/uL} (Normal) Range: 3.4-10.8 87-Yvy-25798:00 MAGNESIUM ([id number]) Comments: recheck in 2 weeks; PATIENT NOT FASTINGPERFORMED BY: CB [facility] [address]od[address] Stephanie Serranovimal [place] [id number] Information: NURSE DRAW Magnesium 1.5 mg/dL (Abnormal) Range: 1.6-2.3 03-Ozx-267659:39 LIPOPROTEIN, BLD, BY NMR Comments: PATIENT WAS FASTINGPERFORMED BY: [facility] [address] [facility] [id number] Information: NURSE DRAW ([id number]) LP-IR Score 43 (Normal) Comments: INSULIN RESISTANCE MARKER <--Insulin Sensitive Insulin Resistant--> Percentile in Reference PopulationInsulin Resistance ScoreLP-IR Score Low 25th 50th 75th High <27 27 45 63 >63LP-IR Score is inaccurate if patient is non-fasting. .The LP-IR score is a laboratory developed i [facility] [place] that has beenassociated with insulin resistance and diabetes risk and should beused as one component of a physician's clinical assessment. TheLP-IR score listed above has not been cleared by the US Food andDrug Administration. LDL Size 21.2 nm (Normal) Comments: INTERPRETATIVE INFORMATION PARTICLE CONCENTRATION AND SIZE <--Lower CVD Risk Highe r CVD Risk--> LDL AND HDL PARTICLES Percentile in Reference Population HDL-P (total) High 75th 50th 25th Low >34.9 34.9 30.5 26.7 <26.7 . Small LDL-P Low 25th 50th 75th High <117 117 527 839 >839 . LDL Size <-Large (Pattern A)-> <-Small (Pattern B)-> 23.0 20.6 20.5 19.0 Small LDL-P and LDL Size are associated with CVD risk, but not afterLDL-P is taken into account. .These assays were developed and their performance characteristicsdetermined by [employer]. These assays have not been cleared by [employer] Food and Drug Administration. The clinical utility of theselaboratory values have not been fully established. Small LDL-P 513 nmol/L (Normal) HDL-P (Total) 32.1 umol/L (Normal) Cholesterol, Total 161 mg/dL (Normal) Range: 100-199 Triglycerides 130 mg/dL (Normal) Range: 0-149 HDL-C 50 mg/dL (Normal) LDL-C 85 mg/dL (Normal) Range: 0-99 Comments: . Optimal < 100 Above optimal 100 - 129 Borderline 1 30 - 159 High 160 - 189 Very high > 189 .LDL-C is inaccurate if patient is non-fasting. LDL-P 1194 nmol/L (Abnormal) Comments: Low < 1000 Moderate 1000 - 1299 Borderline-High 1300 - 1599 High 1600 - 2000 Very High > 2000 73-Lvd-68507:14 HGB A1C ([id number]) Comments: PATIENT NOT FASTINGPERFORMED BY: [facility]ixT[facility] CorporationFhjqna5812 [facility] [id number] Hemoglobin A1c 8.9 % (Abnormal) Range: 4.8-5.6 Comments: . Pre-diabetes: 5.7 - 6.4 Diabetes: >6.4 Glycemic control for adults with diabetes: <7.0 :14 CBC, Platelets & Auto Diff Comments: PATIENT NOT FASTINGPERFORMED BY: [facility] Goleld1092 [facility] [id number] Information: NURSE DRAW ([id number]) Immature Grans (Abs) 0.0 {x10E3/uL} (Normal) Range: 0.0-0.1 Immature Granulocytes 0 % (Normal) Baso (Absolute) 0.0 {x10E3/uL} (Normal) Range: 0.0-0.2 Eos (Absolute) 0.3 {x10E3/uL} (Normal) Range: 0.0-0.4 Monocytes(Absolute) 0.7 {x10E3/uL} (Normal) Range: 0.1-0.9 Lymphs (Absolute) 1.4 {x10E3/uL} (Normal) Range: 0.7-3.1 Neutrophils (Absolute) 5.0 {x10E3/uL} (Normal) Range: 1.4-7.0 Basos 0 % (Normal) Eos 4 % (Normal) Monocytes 9 % (Normal) Lymphs 19 % (Normal) Neutrophils 68 % (Normal) Platelets 119 {x10E3/uL} (Abnormal) Range: 150-379 RDW 14.9 % (Normal) Range: 12.3-15.4 MCHC 33.6 g/dL (Normal) Range: 31.5-35.7 MCH 30.1 pg (Normal) Range: 26.6-33.0 MCV 90 fL (Normal) Range: 79-97 Hematocrit 35.1 % (Abnormal) Range: 37.5-51.0 Hemoglobin 11.8 g/dL (Abnormal) Range: 13.0-17.7 RBC 3.92 {x10E6/uL} (Abnormal) Range: 4.14-5.80 WBC 7.4 {x10E3/uL} (Normal) Range: 3.4-10.8 :14 Magnesium ([id number]) Comments: PATIENT NOT FASTINGPERFORMED BY: [facility]CoO[facility] CenterTpmoyz7459 [facility] [id number] Magnesium 1.5 mg/dL (Abnormal) Range: 1.6-2.3 :14 Metabolic Panel, Comprehensive Comments: PATIENT NOT FASTINGPERFORMED BY: [facility]CoOcean Medical CenterKccssc0170 [facility] [id number] ([id number]) ALT (SGPT) 19 [iU]/L (Normal) Range: 0-44 AST (SGOT) 41 [iU]/L (Abnormal) Range: 0-40 Alkaline Phosphatase 66 [iU]/L (Normal) Range: 39-117 Bilirubin, Total 0.6 mg/dL (Normal) Range: 0.0-1.2 A/G Ratio 1.4 (Normal) Range: 1.2-2.2 Globulin, Total 3.1 g/dL (Normal) Range: 1.5-4.5 Albumin 4.2 g/dL (Normal) Range: 3.5-4.8 Protein, Total 7.3 g/dL (Normal) Range: 6.0-8.5 Calcium 9.3 mg/dL (Normal) Range: 8.6-10.2 Carbon Dioxide, Total 26 mmol/L (Normal) Range: 20-29 Comments: Please note reference interval change Chloride 98 mmol/L (Normal) Range: 96-106 Potassium 4.4 mmol/L (Normal) Range: 3.5-5.2 Sodium 141 mmol/L (Normal) Range: 134-144 BUN/Creatinine Ratio 16 (Normal) Range: 10-24 eGFR If Africn Am 96 mL/min/1.73 (Normal) eGFR If NonAfricn Am 83 mL/min/1.73 (Normal) Creatinine 0.87 mg/dL (Normal) Range: 0.76-1.27 BUN 14 mg/dL (Normal) Range: 8-27 Glucose 155 mg/dL (Abnormal) Range: 65-99 Plan of Care Name Dates Details Planned Observations CBC WITH MANUAL DIFF ([id number])Indication: Pulmonary fibrosis On: 81-Oqw-367426:23 Request Comments: copy to Dr. PressleyPT IS HOMEBOUND CULTURE, SPUTUM ([id number])Indication: Pulmonary fibrosis On: 58-Zen-164177:22 Request Comments: copy to Dr. Pressley Metabolic Panel, Comprehensive ([id number])Indication: Pulmonary fibrosis On: :22 Request Comments: copy to Dr. Pressley CBC, Platelets & Auto Diff ([id number])Indication: Thrombocytopenia On: :42 Request Comments: draw in a non clumping citrate tubeplease do a manual peripheral smear draw 06-24-18 Platelet 92930 (citrate, nonclumping tube)Indication: Thrombocytopenia On: :43 Request Comments: PT IS HOMEBOUND PLEASE DRAW 06-08-18 Metabolic Panel, Basic ([id number])Indication: Diabetes mellitus, type 2 On: 98-Npe-154981:31 Request CBC with auto diff ([id number])Indication: Pneumonia, bacterial On: 73-Xjl-606210:31 Request Methymalonic Acid, Serum ([id number])Indication: Thrombocytopenia On: 85-Khe-777597:08 Request Comments: check in 4 weeks week of 04-20-18 Vitamin B-12 (cyanocobalamin) ([id number])Indication: Thrombocytopenia On: 73-Wtq-340370:07 Request Comments: check in 4 weeks (week of 04-20-18) Platelet Count, Citrated ([id number])Indication: Thrombocytopenia On: 33-Iib-704914:07 Request Comments: draw in citrate tube check in 4 weeks (week of 04-20-18) Metabolic Panel, Comprehensive ([id number])Indication: Diabetes mellitus, type 2 On: 7-Erx-739637:33 Request Comments: re check in 3 months LIPOPROTEIN, BLD, BY NMR ([id number])Indication: Hyperlipidemia On: 5-Ndz-398717:32 Request Comments: re check in 3 months HGB A1C ([id number])Indication: Diabetes mellitus, type 2 On: :32 Request Comments: re check in 3 months MICROALBUMIN: CREATININE RATIO ([id number]) AND ([id number])Indication: Diabetes mellitus, type 2 On: 48-Ydv-001866:09 Request Planned Encounters Medical; [facility] Problem - On: 06-Aug-2018 15:00 [facility] Kit SALDANA, Flory Culver MD Planned Procedures CHEST XRAY, PA & LATERAL ([id number])By: On: 10-Jul-2018 Catina Pantoja MD, Flory Culver MD Comments: copy to Dr. Huan Louise Flu Vaccine (Quadrivalent) [id number]: On: 23-Mar-2018 Flory Mireles MD, MD, Dana Comments: Lot #:[id number] date: 3-41[birth year]95Kgwymv given:0.5mlRoute: IMSite given:L DltdGiven by: Dr. Kit PRIDE and ABN signed [facility] Encounters Lab Order On: 10-Jul-2018 10:17 Encounter Diagnosis: Pulmonary fibrosis End: 10-Jul-2018 10:26 [facility] Lab Order On: 16-Jun-2018 9:40 Encounter Diagnosis: Thrombocytopenia End: 16-Jun-2018 9:43 [facility] Lab Order On: 02-Jun-2018 9:42 Encounter Diagnosis: Thrombocytopenia End: 02-Jun-2018 9:44 [facility] Office Visit On: 28-May-2018 15:03 Encounter Diagnosis: Obesity, Rheumatoid arthritis of foot, unspecified laterality, unspecified rheumatoid factor presence, Osteoarthritis, chronic, BPH without urinary obstruction, Fatty liver, DDD (degenerative disc disease), lumbar, End: 29-May-2018 10:49 Hypogonadism in male, Diabetic neuropathy, GERD (gastroesophageal reflux disease), Cardiomegaly, Constipation, Allergic rhinitis, Kidney stone on left side, Depression, Diabetes mellitus, type 2, Thrombocytopenia, Hyperlipidemia, Hypertension, Chronic respiratory failure, Pulmonary fibrosis, Dupuytren contracture, SVT (supraventricular tachycardia), Coronary artery arteriosclerosis, Low testosterone, Hypomagnesemia, Obstructive sleep apnea, Paresthesia, Pneumonia, bacterial, Hospital discharge follow-up [facility] Phone Encounter On: 25-May-2018 16:44 Encounter Diagnosis: Chronic respiratory failure, Hypertension End: 25-May-2018 16:54 [facility] Phone Encounter On: 04-May-2018 15:38 Encounter Diagnosis: Pulmonary fibrosis End: 04-May-2018 15:41 [facility] Phone Encounter On: 30-Mar-2018 12:06 Encounter Diagnosis: Diabetes mellitus, type 2 End: 30-Mar-2018 12:09 [facility] Lab Order On: 24-Mar-2018 17:06 Encounter Diagnosis: Thrombocytopenia End: 24-Mar-2018 17:08 [facility] Office Visit On: 23-Mar-2018 12:44 Encounter Diagnosis: Need for prophylactic vaccination and inoculation against influenza (Renamed from Need for immunization against influenza), Constipation, Hypogonadism in male, Obesity, End: 24-Mar-2018 11:51 Rheumatoid arthritis of foot, unspecified laterality, unspecified rheumatoid factor presence, Osteoarthritis, chronic, Depression, Diabetic neuropathy, GERD (gastroesophageal reflux disease), Cardiomegaly, Kidney stone on left side, Allergic rhinitis , Chronic respiratory failure, Hypertension, Obstructive sleep apnea, Paresthesia, SVT (supraventricular tachycardia), Hypomagnesemia, Diabetes mellitus, type 2, Hyperlipidemia, Dupuytren contracture, BPH without urinary obstruction, Fatty liver, DDD (degenerative disc disease), lumbar, Pulmonary fibrosis, Coronary artery arteriosclerosis, Low testosterone [facility] Lab Order On: 23-Mar-2018 12:39 Encounter Diagnosis: Diabetes mellitus, type 2, Hypomagnesemia End: 23-Mar-2018 12:41 [facility] Lab Order On: 05-Jan-2018 15:30 Encounter Diagnosis: Diabetes mellitus, type 2, Hyperlipidemia, Hypomagnesemia End: 05-Jan-2018 15:35 [facility] Lab Order On: 18-Dec-2017 11:07 Encounter Diagnosis: Hyperlipidemia, Diabetes mellitus, type 2 End: 18-Dec-2017 11:10 [facility] Office Visit On: 15-Dec-2017 16:41 Encounter Diagnosis: Diabetes mellitus, type 2, Diabetic neuropathy, Obesity, Hyperlipidemia, Obstructive sleep apnea, Acute pancreatitis, GERD (gastroesophageal reflux disease), Cardiomegaly, Kidney stone on left side, Allergic rhinitis, End: 16-Dec-2017 7:58 Chronic respiratory failure, Hypertension, Hypogonadism in male, Coronary artery arteriosclerosis, Low testosterone, BPH without urinary obstruction, Dupuytren contracture, Pulmonary fibrosis, SVT (supraventricular tachycardia), Fatty liver, Paresthesia, Depression, Constipation, DDD (degenerative disc disease), lumbar, Rheumatoid arthritis of foot, unspecified laterality, unspecified rheumatoid factor presence, Osteoarthritis, chronic [facility] Phone Encounter On: 11-Sep-2017 12:44 Encounter Diagnosis: Dupuytren contracture End: 11-Sep-2017 12:46 [facility] Phone Encounter On: 02-Sep-2017 16:15 [facility] End: 02-Sep-2017 16:18 Office Visit On: 01-Sep-2017 16:50 Encounter Diagnosis: Chronic respiratory failure, Obesity, GERD (gastroesophageal reflux disease), Hypertension, Kidney stone on left side, Allergic rhinitis, Hypogonadism in male, Cardiomegaly, Coronary artery arteriosclerosis, Hyperlipidemia, End: 03-Sep-2017 21:09 Diabetes mellitus, type 2, Pulmonary fibrosis, Depression, Constipation, Obstructive sleep apnea, Diabetic neuropathy, Acute pancreatitis, Paresthesia, Osteoarthritis, chronic, Rheumatoid arthritis of foot, unspecified laterality, unspecified rheumatoid factor presence, DDD (degenerative disc disease), lumbar, Dupuytren contracture, Fatty liver, BPH without urinary obstruction, Low testosterone, SVT (supraventricular tachycardia), Encounter for well adult exam with abnormal findings (Renamed from Encounter for general adult medical examination with abnormal findings) [facility] Office Visit On: 05-Aug-2017 10:11 Encounter Diagnosis: Acute pancreatitis, Diabetic neuropathy, Hypertension, Pulmonary fibrosis, Chronic respiratory failure, Diabetes mellitus, type 2, Coronary artery arteriosclerosis, GERD (gastroesophageal reflux disease), Hyperlipidemia, Obesity End: 05-Aug-2017 12:23 , Kidney stone on left side, Constipation, Allergic rhinitis, Hypogonadism in male, Obstructive sleep apnea, Cardiomegaly, Depression, Encounter for well adult exam with abnormal findings (Renamed from Encounter for general adult medica l examination with abnormal findings) [facility] Phone Encounter On: 04-Aug-2017 16:06 Encounter Diagnosis: Coronary artery arteriosclerosis, Diabetes mellitus, type 2, Hyperlipidemia, GERD (gastroesophageal reflux disease), Hypertension, Diabetic neuropathy, Chronic respiratory failure, Pulmonary fibrosis, Obstructive sleep apnea, End: 04-Aug-2017 16:30 Hypogonadism in male, Acute pancreatitis, Depression, Cardiomegaly, Kidney stone on left side, Obesity, Allergic rhinitis, Constipation [facility] Payers MedicareFRANCIS KOVACS; a guarantor
--- OUTSIDE RECORDS SUMMARY | 2018-09-20 08:22 | XMS RPT_ITS | Continuity of Care Document ---
:1940 Author Organization [facility] Address [address] [place] [address] Phone Care Team Providers Name Role Phone [...] Start : 25-May-2018 Active Comments:05-25-18 dose per [facility] d/c AzaTHIOprine 50 MG Oral Tablet [...] Active HumaLOG 100 UNIT/ML Subcutaneous Solution Cartridge uad Unit 6 units bid and 10 units at supper for 0 days Quantity: 2 {Pre-filled_Pen_Syringe} Refills: 6 Ordered:14-Jul-2018 Flory Pantoja MD, MD, Dana M Start : 14-Jul-2018 Active Comments:DX: E11.9NPI: [id number] Ipratropium-Albuterol 0.5-2.5 (3) MG/3ML Inhalation Solution 1 [...] M Start : 28-May-2018 Active Comments:DX: E11.9NPI: [id number] slidibng scale Lisinopril 10 MG Oral Tablet [...] : 25-May-2018 Active Comments:05-25-18 dose changed per [facility] Mometasone Furoate 50 MCG/ACT Nasal Suspension 2 (two) [place] each nostril qd for 0 days Quantity: [...] {Tablet} Refills: 3 Ordered:05-Jan-2018 Flory Pantoja MD, MD Flory M Start : 05-Jan-2018 Active Vitamin B [...] Allergies and Adverse Reactions Name Dates Details Januvia *ANTIDIABETICS* (Allergy) Status: Active Comments: pnacreatitis MetFORMIN HCl *ANTIDIABETICS* (Allergy) Status: Active Comments: diarrhea Past Medical History Name Dates Details Acute pancreatitis (K85.90, 577.0) Comments: seen [facility] 06-[facility]17 show distended gall bladder but us okay and felt related to januvia and azathioprine. at this point think related to januvia so restart the aza. will see if rreturn. Status: Resolved as of 15-Dec-2017 Hospital discharge follow-up (Z09, V67.59) Status: Resolved as of 10-Jul-2018 Procedures Procedure Dates Details Colonoscopy, Screening Completed Comments: 11-03-2014 with biopsy right inguinal hernia 1959's Completed Date Value Details 02-Jul-2018 Chest PA and Lateral Result: Comments: See Note; NOTES: [facility] Imaging Services [address] [place] [address] Chest PA and Lateral MR#: [id number] Acct: [id number] Name: KUMARRONNI Rep #: [id number] : 1940 M 78 From: Martinez Smith MD PCP: Flory Pantoja MD Status: REG CLI Study: Chest PA and Lateral Date of Exam: 07/02/18 Exam# [id number] Ordering Dr: Flory Pantoja MD STUDY: X-RAY [...] Service support , CC: Flory Pantoja MD Procurement Professional: Signed 08-May-2018 History and Physical Exam Result: Comments: See Note; NOTES: [facility] Medical Records Department [address] [place] [address] History and Physical 05/08/18 1603 MR#: [id number] Acct: [id number] Name: Saul HEATH Rep #: [id number] : 1940 78 From: 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 ED on 05/08/18 w/ history of ongoing [...] Hypoxic Respiratory Failure (4L NC) following w/ [facility] who presents to the [facility] ED on 05/08/18 w/ history of ongoing [...] CPAP q HS. Inpatient E AND M: 27609 Init Hosp L3 05/08/18 1648 &#6 0;Electronically signed by Jada Diop > Date Jada Diop cc: PB Dickson; Jada Diop; Flory aPntoja MD * Signed Problem L ist (1) [...] follows with Dr. 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 Type 2 diabetes mellitus with diabetic gisbnvmoej-Kvlo-Sjuhf before meals at bedtime. Continue home Levemi [...] <Electronically signed by Anushka DIANAC> Date Anushka DIANAC 05/08/18 1633<Elect ronically signed by Jada Diop > Cosigner Signature: Date (if applicable) Jada Diop CC: PB Dickson; Jada Diop; Flory Pantoja MD Signed 08-May-2018 History and Physical Exam Result: Comments: See Note; NOTES: [facility] Medical Records Department [address] [place] [address] History and Physical 05/08/18 1603 MR#: [id number] Acct: [id number] Name: KUMARSaul LUIS Rome Rep #: [id number] : 1940 78 From: Anushka DIANAC PCP: Flory Pantoja MD Status: REG ER [...] s with Dr. 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 Type 2 diabetes mellitus with diabetic svfwhudsko-Fsgd-Atadp before meals at bedtime. Continue home Levemir [...] Diop. 05/08/18 1628 <Electronically signed by Liz Dickson NP-C> Date Anushka DIANAC 05/08/18 1633<Electronically signed by Jada Diop > Cosigner Signature: D ate (if applicable) Jada Diop CC: PB Dickson; Jada Diop; Flory Pantoja MD Signed 08-May-2018 Chest PA and Lateral Result: Comments: See Note; NOTES: [facility] Imaging Services [address] [place] [address] Chest PA and Lateral MR#: [id number] Acct: [id number] Name: Ronni Heath Latricia Rep #: [id number] : 1940 M 78 From: Saad Berry MD PCP: Flory Pantoja MD Status: REG ER Study: Chest PA and Lateral Date of Exam: 05/08/18 Exam# [id number] Ordering Dr: Rodolfo Stanford MD STUDY: X-RAY [...] Saad Berry MD at 14:48 EST Tel [phone], Service supp ort , CC: Flory Pantoja MD; Rodolfo Stanford MD Procurement Professional: Signed Social History Name Dates Details Current Work/Study Status Comments: 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 use to live in [place] Status: Active Living Situation Comments: live with Status: Active Non Drinker/No Alcohol Use Status: Active Non Smoker/No Tobacco Use Comments: smoked 3 ppd from Status: Active Vital Signs Date Test Result Details 32-Ull-478145:44 Pulse 67 /min Comments: Pattern: Regular Respiration Rate 18 /min O2 SAT 95 % Comments: 10L O2 BP Systolic 100 mm[Hg] Comments: Patient Position: Sitting BP Diastolic 65 mm[Hg] Comments: Patient Position: Sitting 56-Zya-698346:41 Pulse 80 /min Comments: Pattern: Regular Respiration [...] Diastolic 76 mm[Hg] Comments: Patient Position: Sitting 3-Pve-886333:20 Comments: sitting at rest with PO when walking short distance drops down. Temperature 98.5 f Comments: Method: Oral Pulse 98 /min Comments: Pattern: Regular Respiration Rate 22 /min O2 SAT 97 % Comments: Room air BP Systolic 112 mm[Hg] Comments: Patient Position: Sitting BP Diastolic 68 mm[Hg] Comments: Patient Position: Sitting Results Date Description Value Details :15 Culture, Sputum Comments: [facility] [address] [place], [place], [id number] CUSP See Note (Normal) Comments: Gram StainGram Stain 2+ Yeast Like Organisms 2+ Gram positive cocci 2+ White Blood Cells Resp. CultureAppears to be normal respiratory mariama. Further studies to follow. 66-Cbs-560841:00 CBC W/Diff, Automated Comments: [facility] [address] [place], [place], [id number] Absolute Lymph 1.16 {X10_3/ul} (Normal) Range: 0.83-4.51 Absolute Neut 6.8 {X10_3/uL} (Normal) Range: 2.0-7.7 IM GRAN % 1.700 % (Abnormal) Range: 0.0-0.9 Comments: IG% - Immature Granulocytes (promyelocytes, myelocytes andmetamyelocytes) > 1% indicates that a LEFT SHIFT is Present. BASO% 0.2 % (Normal) Range: 0-1 EO% 1.1 % (Normal) Range: 0-5 MONO% 7.2 % (Normal) Range: 0-10 LY% 13.0 % (Abnormal) Range: 19-41 NEUT% 76.8 % (Abnormal) Range: 47-70 MPV 10.3 fL (Normal) Range: 6.2-12.0 PLT 99 K/mm3 (Abnormal) Range: 150-450 RDW SD 51.4 fL (Abnormal) Range: 35.1-43.9 RDW CV 15.6 % (Abnormal) Range: 11.6-14.6 MCHC 32.3 {g/gl} (Normal) Range: 32-36 MCH 30.4 pg (Normal) Range: 27.0-32.0 MCV 94.1 fL (Abnormal) Range: 80-94 HCT 33.4 % (Abnormal) Range: 40-54 HGB 10.8 g/dL (Abnormal) Range: 13.0-16.5 RBC 3.55 {M/mm3} (Abnormal) Range: 4.6-6.2 WBC 8.9 K/mm3 (Normal) Range: 4.4-11.0 67-Ojf-637303:00 Comprehensive Metabolic Profil Comments: [facility] [address] [place], [place], [address] GAP 9 (Normal) Range: 5-15 CO2 31.0 mmol/L (Normal) Range: 21.0-32.0 CL 101 mmol/L (Normal) Range: 98-107 K 4.5 mmol/L (Normal) Range: 3.5-5.1 Comments: Moderate Hemolysis, Result may be falsely increased. NA 141 mmol/L (Normal) Range: 136-145 T BILI 0.60 mg/dL (Normal) Range: 0.20-1.00 ALT 37 U/L (Normal) Range: 16-61 ALK P 84 U/L (Normal) Range: 45-117 AST 37 U/L (Normal) Range: 15-37 Comments: Moderate Hemolysis, Result may be falsely increased. CA 8.8 mg/dL (Normal) Range: 8.5-10.1 A/G 0.9 {RATIO} (Normal) Range: 0.9-2.4 GLOB 3.3 g/dL (Normal) Range: 2.2-4.2 ALB 3.1 g/dL (Abnormal) Range: 3.2-5.0 T PROT 6.4 g/dL (Normal) Range: 6.4-8.2 BUN/CRE 23.2 {RATIO} (Abnormal) Range: 10-20 EST GFR - AA 104 mL/min (Normal) Comments: GFR Calc EST GFR 86 mL/min (Normal) Comments: Non- GFR Calc CREAT,SERUM 0.90 mg/dL (Normal) Range: 0.70-1.30 Comments: The validity of the calculated GFR AND GFRAA in patients over70 years has not been determined. Clinical correlation isessential. BUN 21 mg/dL (Abnormal) Range: 7-18 GLU 226 mg/dL (Abnormal) Range: 74-106 Comments: Glucose result greater than or equal to 200 mg/dLsuggests DIABETES MELLITUS per A.D.A. criteria.Please note revised GLUCOSE reference range /02/2018. 02-Jul-20189:45 CBC W/Diff, Automated Comments: PLEASE DO MANUAL PERIPHERAL SMEAR; REQUESTED TO DRAW INCITRATE NON CLUMPING TUBE (FOR PLATELETS)PLATELET CLUMPING NOT OBSERVED ON PERIPHERAL SMEAR; RESULTEDFROM NON-CITRATE TUBE.[facility] [address] [place], [address] RED CELL MORPH NORM C+C {NORMAL} (Normal) [...] 02-Jul-20189:45 Erythrocyte Sed Rate Comments: ADD TO C846PhxdkveCommunity [facility] [address] [place], [address] SED RATE 39 mm/h (Abnormal) Range: 0-20 17-Fan-007434:45 Platelet Count Comments: BELEN CITRATE NON-CLUMPING TUBE [facility] [address] [place], [phone] PLT 67 K/mm3 (Abnormal) Range: 150-450 0-Pyk-089174:00 CBC W/Diff, Automated Comments: [facility] [address] [place], [place], [address] Absolute Lymph 0.86 {X10_3/ul} (Normal) Range: 0.83-4.51 [...] 4.6-6.2 WBC 11.7 K/mm3 (Abnormal) Range: 4.4-11.0 5-Pka-395705:00 Comprehensive Metabolic Profil Comments: [facility] [address] [place], [address] GAP 8 (Normal) Range: 5-15 CO2 30.0 [...] A.D.A. criteria.Please note revised GLUCOSE reference range vognyvoqb81/02/2018. 6-Xse-324231:00 Hemoglobin A1c Comments: [facility] [address] [place], [address] HGB A1C 9.7 % (Abnormal) Range: 4.2-6.3 3-Pmf-509441:00 Magnesium Comments: [facility] [address] [place], [address] MG 2.1 mg/dL (Normal) Range: 1.6-2.6 2-Uob-302656:00 Methylmalonic Acid Bld Comments: [facility] (refer to report for specific site)refer to report for address and phone number METHYLM Comments: TEST RESULT LIMITSMethylmalonic Acid, SerumMethylmalonic Acid, Serum 187 nmol/L 0 - 378Disclaimer:This test was developed and its performance characteristicsde 686810 (Normal) termined by [facility]. It has not been cleared or approvedby the Food and Drug Administration. TESTING PERFORMED AT [facility]. ORIGINAL REPORT ON FI LE IN LAB CONTAINS ADDITIONAL TEST SITE INFORMATION. 0-Qlu-715168:00 NMR Lipoprofile Comments: [facility] (refer to report [...] SITE INFORMATION. 3 Vitamin B12 1730 Comments: [facility] [address] [place], [address] - pg/mL Range: 211-911 D (Abnormal e ) c - 2 0 1 8 1 2 : 0 0 4-Soi-255388:05 Basic Metabolic Profile (BMP) Comments: [facility] [address] [place], [address] GAP 8 (Normal) Range: 5-15 CO2 29.0 [...] A.D.A. criteria.Please note revised GLUCOSE reference range lecdnuehu83/02/2018. 7-Iwh-851812:05 CBC W/Diff, Automated Comments: [facility] [address] [facility] [place], [address] Absolute Lymph 0.74 {X10_3/ul} (Abnormal) Range: 0.83-4.51 [...] 4.6-6.2 WBC 9.4 K/mm3 (Normal) Range: 4.4-11.0 4-Jlw-322054:05 Lactic Acid Comments: Yes/No query for Sepsis Lactate [facility] [address] [place], [phone] LACTIC ACID 2.2 mmol/L (Abnormal) Range: 0.4-2.0 Comments: Critical Result(s) Called at: 14:48:04 05/08/2018 by: Citlaly Martinez RN 4-Nxh-354552:05 Troponin-I Comments: [facility] [address] [place], [address] TROPONIN-I < 0.015 ng/mL (Normal) Comments: TROPONIN-I EXPECTED VALUES <0.045 Negative 0.045 - 0.590 Consistent with Cardiac Damage > OR = 0.600 Critical Value Not every elevated troponin is indicative of IA. T hesevalues should be used with clinical judgement in examiningthe patient's clinical picture for diagnosis. To establisha diagnosis of IA versus myocardial injury, there must be ademonstrated rise and/ or fall in the troponin values, inaddition to ischemic symptoms, EKG changes, new regionalwall motion abnormality, and/or angiographical evidence. PLEASE NOTE: REFERENCE RANGES EDITED 11/10/1723-Mar-201868-Poc-731918:14 Comp. Metabolic Panel Comments: PATIENT NOT FASTINGPERFORMED BY: [facility] [address] [id number] BY: CB [facility] [address] [facility] [id number] (14) ALT (SGPT) 26 [iU]/L (Normal) Range: [...] % (Abnormal) Comments: PATIENT NOT FASTINGPERFORMED BY: [employer] [id number] BY: [employer]70 [facility] [id number] 4:14 Range: 4.8-5.6 Comments: . Prediabetes: 5.7 - 6.4 Diabetes: >6.4 Glycemic control for adults with diabetes: <7.0 67-Kyh-775894:14 NMR LipoProfile Comments: PATIENT NOT FASTINGPERFORMED BY: [employer] [id number] BY: [employer]70 [facility] [id number] Inf ormation: NURSE DRAW LP-IR Score 52 (Abnormal) Comments: INSULIN RESISTANCE MARKER <--Insulin Sensitive Insulin Resistant--> Percentile in Reference PopulationInsulin Resistance ScoreLP-IR Score Low 25th 50th 75th High <27 27 45 63 >63LP-IR Score is inaccurate if patient is non-fasting. .The LP-IR score is a laboratory developed i [facility] that has beenassociated with insulin resistance and [...] were developed and their performance characteristicsdetermined by [employer]. These assays have not been cleared by [...] 1600 - 2000 Very High > 2000 77-Dmn-366896:14 MAGNESIUM (02789) Comments: PATIENT NOT FASTINGPERFORMED BY: LabCoPhilip V[place] [address] [facility] [id number] BY: LabCoPSE&G Children's Specialized HospitalIbowpe5453 [facility] [id number] Magnesium 1.7 mg/dL (Normal) Range: 1.6-2.3 21-Ugb-237068:14 CBC, PLATELETS & MANUAL Comments: PATIENT NOT FASTINGPERFORMED BY: MyFrontStepsSt. Lawrence Rehabilitation CenterVkrskvmghu8719 [facility] [id number] BY: MyFrontStepsTimothy [place] [address]70 [facility] [id number] DIFF (27669) Hematology Comments: Note: (Normal) Comments: Verified by [...] 4.14-5.80 WBC 6.2 {x10E3/uL} (Normal) Range: 3.4-10.8 49-Dnt-78729:00 MAGNESIUM (49786) Comments: recheck in 2 weeks; PATIENT NOT FASTINGPERFORMED BY: MyFrontStepsPSE&G Children's Specialized HospitalPgdefy9427 [facility] [id number] Information: NURSE DRAW Magnesium 1.5 mg/dL (Abnormal) Range: 1.6-2.3 10-Lgb-465976:39 LIPOPROTEIN, BLD, BY NMR Comments: PATIENT WAS FASTINGPERFORMED BY: LabCoPhilip [place] [address] [facility] [id number] Information: NURSE DRAW (53237) LP-IR Score 43 (Normal) Comments: INSULIN RESISTANCE MARKER <--Insulin Sensitive Insulin Resistant--> Percentile in Reference PopulationInsulin Resistance ScoreLP-IR Score Low 25th 50th 75th High <27 27 45 63 >63LP-IR Score is inaccurate if patient is non-fasting. .The LP-IR score is a laboratory developed i [facility] that has beenassociated with insulin resistance and [...] were developed and their performance characteristicsdetermined by [employer]. These assays have not been cleared by [...] 1600 - 2000 Very High > 2000 07-Hez-69837:14 HGB A1C (14191) Comments: PATIENT NOT FASTINGPERFORMED BY: [employer]6370 [facility] [id number] Hemoglobin A1c 8.9 % (Abnormal) Range: 4.8-5.6 Comments: . Pre-diabetes: 5.7 - 6.4 Diabetes: >6.4 Glycemic control for adults with diabetes: <7.0 :14 CBC, Platelets & Auto Diff Comments: PATIENT NOT FASTINGPERFORMED BY: [employer]rapeuticsCoApervita [facility] [id number] Information: NURSE DRAW (44346) Immature Grans (Abs) 0.0 {x10E3/uL} (Normal) Range: [...] 7.4 {x10E3/uL} (Normal) Range: 3.4-10.8 :14 Magnesium (58565) Comments: PATIENT NOT FASTINGPERFORMED BY: LabCoPSE&G Children's Specialized HospitalVqaxph9440 [facility] [id number] Magnesium 1.5 mg/dL (Abnormal) Range: 1.6-2.3 :14 Metabolic Panel, Comprehensive Comments: PATIENT NOT FASTINGPERFORMED BY: LabCoPSE&G Children's Specialized HospitalXwlinr0882 [facility] [id number] (99346) ALT (SGPT) 19 [iU]/L (Normal) Range: 0-44 [...] Details Planned Observations CBC WITH MANUAL DIFF (71812)Indication: Pulmonary fibrosis On: :23 Request Comments: copy to Dr. PressleyPT IS HOMEBOUND CULTURE, SPUTUM (65720)Indication: Pulmonary fibrosis On: :22 Request Comments: copy to Dr. Pressley Metabolic Panel, Comprehensive (24952)Indication: Pulmonary fibrosis On: :22 Request Comments: copy to Dr. Pressley CBC, Platelets & Auto Diff (09330)Indication: Thrombocytopenia On: :42 Request Comments: draw in a non clumping citrate tubeplease do a manual peripheral smear draw 06-24-18 Platelet 45416 (citrate, nonclumping tube)Indication: Thrombocytopenia On: :43 Request Comments: PT IS HOMEBOUND PLEASE DRAW 06-08-18 Metabolic Panel, Basic (44440)Indication: Diabetes mellitus, type 2 On: :31 Request CBC with auto diff (50694)Indication: Pneumonia, bacterial On: :31 Request Methymalonic Acid, Serum (91743)Indication: Thrombocytopenia On: :08 Request Comments: check in 4 weeks week of 04-20-18 Vitamin B-12 (cyanocobalamin) (80074)Indication: Thrombocytopenia On: :07 Request Comments: check in 4 weeks (week of 04-20-18) Platelet Count, Citrated (00309)Indication: Thrombocytopenia On: 67-Dxr-569584:07 Request Comments: draw in citrate tube check in 4 weeks (week of 04-20-18) Metabolic Panel, Comprehensive (05124)Indication: Diabetes mellitus, type 2 On: 1-Nrq-961777:33 Request Comments: re check in 3 months LIPOPROTEIN, BLD, BY NMR (83818)Indication: Hyperlipidemia On: 8-Dde-365251:32 Request Comments: re check in 3 months HGB A1C (91231)Indication: Diabetes mellitus, type 2 On: 9-Onx-924121:32 Request Comments: re check in 3 months MICROALBUMIN: CREATININE RATIO (49131) AND (73084)Indication: Diabetes mellitus, type 2 On: 81-Ktr-895260:09 Request Planned Encounters Medical; [facility] Problem - On: 06-Aug-2018 15:00 [facility] Kit SALDANA, Flory Culver MD Planned Procedures CHEST XRAY, PA & LATERAL (59899)By: On: 10-Jul-2018 Flory Mireles MD, MD, Dana Comments: copy to Dr. Huan Louise Flu Vaccine (Quadrivalent) 90460Og: On: 23-Mar-2018 Flory Mireles MD, MD, Dana Comments: Lot #:[id number] date: [birth year]86Tyiede given:0.5mlRoute: IMSite given:L DltdGiven by: Dr. Kit PRIDE and ABN signed [employer] M Encounters Lab Order On: 10-Jul-2018 10:17 Encounter [...]
--- OUTSIDE RECORDS SUMMARY | 2018-09-20 08:22 | XMS RPT_ITS | Continuity of Care Document ---
:1940 Author Organization [facility] Address [address] [place] [address] Phone Care Team Providers Name Role Phone [...] (gastroesophageal reflux disease) (K21.9, 530.81) Status: Active Hospital discharge follow-up (Z09, V67.59) Status: Active Hyperlipidemia (E78.5, 272.4) Comments: 06-15 [...] with pancreatitis 06-15. follow with Dr. Ramses BLANCO see him in the . back on [...] Start : 25-May-2018 Active Comments:05-25-18 dose per [facility] d/c AzaTHIOprine 50 MG Oral Tablet 2 (two) Tablet Tablet qd for 0 days Quantity: 60 {Tablet} Refills: 0 Ordered:29-May-2018 Flory Pantoja MD, MD, Dana M Start : 04-May-2018 Active Bisacodyl 10 MG Rectal Suppository 1 (one) [...] M Start : 02-Jul-2018 Active Comments:DX: E11.9NPI: [id number] Ipratropium-Albuterol 0.5-2.5 (3) MG/3ML Inhalation Solution 1 [...] M Start : 28-May-2018 Active Comments:DX: E11.9NPI: [id number] slidibng scale Lisinopril 10 MG Oral Tablet [...] : 25-May-2018 Active Comments:05-25-18 dose changed per [facility] Mometasone Furoate 50 MCG/ACT Nasal Suspension 2 (two) Alpha Alpha each nostril qd for 0 days Quantity: [...] 05-Jan-2018 Active PredniSONE 20 MG Oral Tablet 1 (one) Tablet Tablet bid for 0 days Quantity: 60 {Tablet} Refills: 0 Ordered:29-May-2018 Flory Pantoja MD, MD, Dana M Start : 25-May-2018 Active Comments:per [facility] [address] Sertraline HCl 50 MG Oral Tablet 1 [...] (K85.90, 577.0) Comments: seen [facility] 06[facility]27[facility]17 show distended gall bladder but us okay and felt related to januvia and azathioprine. at this point think related to januvia so restart the aza. will see if rreturn. Status: Resolved as of 15-Dec-2017 Procedures Procedure Dates Details Colonoscopy, Screening Completed Comments: 11-03-2014 with biopsy right inguinal hernia Completed Date Value Details 08-May-2018 History and Physical Exam Result: Comments: See Note; NOTES: [facility] Medical Records Department [address] [place] [address] History and Physical 05/08/18 1603 MR#: [id number] Acct: [id number] Name: Saul HEATH Rep #: [id number] : 1940 78 From: Anushka Dickson [employer]ORE [employer] PCP: Flory Pantoja MD Status: REG ER [...] Hypoxic Respiratory Failure (4L NC) following w/ Manager [facility] who presents to the [facility] ED on 05/08/18 w/ history [...] Hypoxic Respiratory Failure (4L NC) following w/ Manager [facility] who presents to the [facility] ED on 05/08/18 w/ history [...] CPAP q HS. Inpatient E AND M: 48891 Init Hosp L3 05/08/18 1648 &#6 0;Electronically signed by Jada Diop > Date Jada Diop cc: STORE [employer] Anushka Dickson; Jada Diop; Flory Pantoja MD * [...] follows with Dr. 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 Type 2 diabetes mellitus with diabetic urobecepkq-Rycl-Mweei before meals at bedtime. Continue home Levemi [...] Physical Exam Result: Comments: See Note; NOTES: [facility] Medical Records Department [address] [place] [address] History and Physical 05/08/18 1603 MR#: [id number] Acct: [id number] Name: Saul HEATH Rep #: [id number] : 1940 78 From: Anushka DIANAC PCP: [...] s with Dr. 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 Type 2 diabetes mellitus with diabetic wygcccyfgo-Kkxz-Dkvij before meals at bedtime. Continue home Levemir [...] <Electronically signed by Liz DIANAC> Date Anushka IDANAC 05/08/18 1633<Electronically signed by Jada Diop > Cosigner Signature: D ate (if applicable) Jada Diop CC: PB Dickson; Jada Diop; Flory Pantoja MD Signed 08-May-2018 Chest PA and Lateral Result: Comments: See Note; NOTES: [facility] Imaging Services [address] [place] [address] Chest PA and Lateral MR#: [id number] Acct: [id number] Name: Ronni Heath Rep #: [id number] : 1940 M 78 From: Saad Berry MD PCP: Flory Pantoja MD Status: REG ER Study: Chest PA and Lateral Date of Exam: 05/08/18 Exam# [id number] Ordering Dr: Rodolfo Stanford MD STUDY: X-RAY [...] Saad Berry MD at 14:48 EST Tel [phone], Service supp ort , CC: Flory Pantoja MD; Rodolfo Stanford MD Fountain Server: Signed Social History Name Dates Details Current Work/Study Status Comments: 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 use to live in [place] Status: Active Living Situation Comments: live with Status: Active Non Drinker/No Alcohol Use Status: Active Non Smoker/No Tobacco Use Comments: smoked 3 ppd from Status: Active Vital Signs Date Test Result Details 36-Sbe-695861:44 Pulse 67 /min Comments: Pattern: Regular Respiration Rate 18 /min O2 SAT 95 % Comments: 10L O2 BP Systolic 100 mm[Hg] Comments: Patient Position: Sitting BP Diastolic 65 mm[Hg] Comments: Patient Position: Sitting 39-Cpy-201129:41 Pulse 80 /min Comments: Pattern: Regular Respiration [...] Diastolic 76 mm[Hg] Comments: Patient Position: Sitting :20 Comments: sitting at rest with PO when walking short distance drops down. Temperature 98.5 f Comments: Method: Oral Pulse 98 /min Comments: Pattern: Regular Respiration Rate 22 /min O2 SAT 97 % Comments: Room air BP Systolic 112 mm[Hg] Comments: Patient Position: Sitting BP Diastolic 68 mm[Hg] Comments: Patient Position: Sitting Results Date Description Value Details :45 Platelet Count Comments: BELEN CITRATE NON-CLUMPING TUBE [facility] [address] [place], [place], [address] PLT 67 K/mm3 (Abnormal) Range: 150-450 :00 CBC W/Diff, Automated Comments: [facility] [address] [place], [place], [address] Absolute Lymph 0.86 {X10_3/ul} (Normal) Range: 0.83-4.51 [...] 4.6-6.2 WBC 11.7 K/mm3 (Abnormal) Range: 4.4-11.0 9-Ksd-350366:00 Comprehensive Metabolic Profil Comments: [facility] [address] [place], [place], [id number] GAP 8 (Normal) Range: 5-15 CO2 30.0 [...] A.D.A. criteria.Please note revised GLUCOSE reference range adheoahol09/02/2018. 2-Wut-260081:00 Hemoglobin A1c Comments: [facility] [address] [place], [place], [phone] HGB A1C 9.7 % (Abnormal) Range: 4.2-6.3 5-Lmc-968292:00 Magnesium Comments: [facility] [address] [place], [place], [phone] MG 2.1 mg/dL (Normal) Range: 1.6-2.6 8-Eir-618519:00 Methylmalonic Acid Bld Comments: [facility] (refer to report for specific site)refer to report for address and phone number METHYL Comments: TEST RESULT LIMITSMethylmalonic Acid, SerumMethylmalonic Acid, Serum 187 nmol/L 0 - 378Disclaimer:This test was developed and its performance characteristicsde 800639 (Normal) termined by [facility]. It has not been cleared or approvedby the Food and Drug Administration. TESTING PERFORMED AT [facility]. ORIGINAL REPORT ON TORO BRAVO IN LAB CONTAINS ADDITIONAL TEST SITE INFORMATION. 1-Tyx-182201:00 NMR Lipoprofile Comments: [facility] (refer to report [...] risk, butnot after LDL-P is taken into account.Th jose assays were developed and their performancecharacteristics [...] SITE INFORMATION. 3 Vitamin B12 1730 Comments: [facility] [address] [place], [place], [address] - pg/mL Range: 211-911 D (Abnormal e ) c - 2 0 1 8 1 2 : 0 0 2-Arz-968632:05 Basic Metabolic Profile (BMP) Comments: [facility] [address] [place], [place], [address] GAP 8 (Normal) Range: 5-15 CO2 29.0 [...] A.D.A. criteria.Please note revised GLUCOSE reference range gifwosbxd26/02/2018. 3-Eyl-716317:05 CBC W/Diff, Automated Comments: [facility] [address] [place], [place], [phone] Absolute Lymph 0.74 {X10_3/ul} (Abnormal) Range: 0.83-4.51 [...] 4.6-6.2 WBC 9.4 K/mm3 (Normal) Range: 4.4-11.0 4-Aev-969282:05 Lactic Acid Comments: Yes/No query for Sepsis Lactate Rule [facility] [address] [place], [address] LACTIC ACID 2.2 mmol/L (Abnormal) Range: 0.4-2.0 Comments: Critical Result(s) Called at: 14:48:04 05/08/2018 by: Citlaly Martinez RN 5-Reo-295511:05 Troponin-I Comments: [facility] [address] [place], [address] TROPONIN-I < 0.015 ng/mL (Normal) Comments: TROPONIN-I EXPECTED VALUES <0.045 Negative 0.045 - 0.590 Consistent with Cardiac Damage > OR = 0.600 Critical Value Not every elevated troponin is indicative of MO. T hesevalues should be used with clinical judgement in examiningthe patient's clinical picture for diagnosis. To establisha diagnosis of MO versus myocardial injury, there must be ademonstrated rise and/ or fall in the troponin values, inaddition to ischemic symptoms, EKG changes, new regionalwall motion abnormality, and/or angiographical evidence. PLEASE NOTE: REFERENCE RANGES EDITED 11/10/1723-Mar-201815-Vkz-473311:14 Comp. Metabolic Panel Comments: PATIENT NOT FASTINGPERFORMED BY: [facility] [address] [facility] [id number] BY: [facility] [address] [facility] [id number] (14) ALT (SGPT) 26 [iU]/L (Normal) Range: [...] % (Abnormal) Comments: PATIENT NOT FASTINGPERFORMED BY: [employer] [id number] BY: [employer] [facility] [id number] 4:14 Range: 4.8-5.6 Comments: . Prediabetes: 5.7 - 6.4 Diabetes: >6.4 Glycemic control for adults with diabetes: <7.0 89-Vzj-471755:14 NMR LipoProfile Comments: PATIENT NOT FASTINGPERFORMED BY: [employer] [id number] BY: [employer] 7[employer] TechnologiesCentral [facility] [id number] Inf ormation: NURSE DRAW LP-IR Score 52 (Abnormal) Comments: INSULIN RESISTANCE MARKER <--Insulin Sensitive Insulin Resistant--> Percentile in Reference PopulationInsulin Resistance ScoreLP-IR Score Low 25th 50th 75th High <27 27 45 63 >63LP-IR Score is inaccurate if patient is non-fasting. .The LP-IR score is a laboratory developed i [facility] that has beenassociated with insulin resistance and [...] were developed and their performance characteristicsdetermined by [employer]. These assays have not been cleared by [...] 1600 - 2000 Very High > 2000 25-Vgr-448104:14 MAGNESIUM (77112) Comments: PATIENT NOT FASTINGPERFORMED BY: [facility] [address] [facility] [id number] BY: [facility] [facility] [id number] Magnesium 1.7 mg/dL (Normal) Range: 1.6-2.3 95-Xcn-431893:14 CBC, PLATELETS & MANUAL Comments: PATIENT NOT FASTINGPERFORMED BY: [facility] [address] [id number] BY: [facility] [facility] [id number] DIFF (56563) Hematology Comments: Note: (Normal) Comments: Verified by [...] 4.14-5.80 WBC 6.2 {x10E3/uL} (Normal) Range: 3.4-10.8 37-Jzu-50835:00 MAGNESIUM (69586) Comments: recheck in 2 weeks; PATIENT NOT FASTINGPERFORMED BY: CB [facility] [address] [facility] [id number] Information: NURSE DRAW Magnesium 1.5 mg/dL (Abnormal) Range: 1.6-2.3 23-Mvm-808380:39 LIPOPROTEIN, BLD, BY NMR Comments: PATIENT WAS FASTINGPERFORMED BY: [facility] [address] [id number] Information: NURSE DRAW (10010) LP-IR Score 43 (Normal) Comments: INSULIN RESISTANCE MARKER <--Insulin Sensitive Insulin Resistant--> Percentile in Reference PopulationInsulin Resistance ScoreLP-IR Score Low 25th 50th 75th High <27 27 45 63 >63LP-IR Score is inaccurate if patient is non-fasting. .The LP-IR score is a laboratory developed i [facility] that has beenassociated with insulin resistance and [...] were developed and their performance characteristicsdetermined by [employer]. These assays have not been cleared by [...] 1600 - 2000 Very High > 2000 11-Eim-62136:14 HGB A1C (01225) Comments: PATIENT NOT FASTINGPERFORMED BY: [employer] [facility] [id number] Hemoglobin A1c 8.9 % (Abnormal) Range: 4.8-5.6 Comments: . Pre-diabetes: 5.7 - 6.4 Diabetes: >6.4 Glycemic control for adults with diabetes: <7.0 35-Naf-15572:14 CBC, Platelets & Auto Diff Comments: PATIENT NOT FASTINGPERFORMED BY: [employer] [facility] [id number] Information: NURSE DRAW (73432) Immature Grans (Abs) 0.0 {x10E3/uL} (Normal) Range: [...] 7.4 {x10E3/uL} (Normal) Range: 3.4-10.8 :14 Magnesium (64938) Comments: PATIENT NOT FASTINGPERFORMED BY: [facility] CenterShoxsu[address] [facility] [id number] Magnesium 1.5 mg/dL (Abnormal) Range: 1.6-2.3 :14 Metabolic Panel, Comprehensive Comments: PATIENT NOT FASTINGPERFORMED BY: [facility] CenterHpbpdc[address] [facility] [id number] (52381) ALT (SGPT) 19 [iU]/L (Normal) Range: 0-44 [...] of Care Name Dates Details Planned Observations CBC, Platelets & Auto Diff (51731)Indication: Thrombocytopenia On: :42 Request Comments: draw in a non clumping citrate tubeplease do a manual peripheral smear draw 06-24-18 Platelet 61568 (citrate, nonclumping tube)Indication: Thrombocytopenia On: :43 Request Comments: PT IS HOMEBOUND PLEASE DRAW 06-08-18 Metabolic Panel, Basic (79915)Indication: Diabetes mellitus, type 2 On: 42-Egj-897649:31 Request CBC with auto diff (46952)Indication: Pneumonia, bacterial On: 77-Frs-853995:31 Request Methymalonic Acid, Serum (76068)Indication: Thrombocytopenia On: :08 Request Comments: check in 4 weeks week of 04-20-18 Vitamin B-12 (cyanocobalamin) (07979)Indication: Thrombocytopenia On: :07 Request Comments: check in 4 weeks (week of 04-20-18) Platelet Count, Citrated (94412)Indication: Thrombocytopenia On: 50-Gfh-789619:07 Request Comments: draw in citrate tube check in 4 weeks (week of 04-20-18) Metabolic Panel, Comprehensive (99297)Indication: Diabetes mellitus, type 2 On: 5-Yyk-655989:33 Request Comments: re check in 3 months LIPOPROTEIN, BLD, BY NMR (60256)Indication: Hyperlipidemia On: 6-Jgb-835137:32 Request Comments: re check in 3 months HGB A1C (30254)Indication: Diabetes mellitus, type 2 On: 7-Zeg-736824:32 Request Comments: re check in 3 months MICROALBUMIN: CREATININE RATIO (12167) AND (37619)Indication: Diabetes mellitus, type 2 On: 41-Dux-829325:09 Request Planned Encounters Medical; KAYLYN Home Visit Problem - On: 06-Aug-2018 15:00 [facility] Kit SALDANA, Flory Culver MD Planned Procedures Flu Vaccine (Quadrivalent) On: 23-Mar-2018 Intent [id number]: Flory Pantoja MD Comments: Lot #:[id number] date: 9-19-63Ujvzuf given:0.5mlRoute: IMSite given:L DltdGiven by: Dr. Pantoja VIS and ABN signed [employer] Flory Pantoja MD Encounters Lab Order On: 16-Jun-2018 9:40 Encounter Diagnosis: [...] Allergic rhinitis, Constipation [facility] Payers MedicareFRWANDA HEATH; a guarantor
--- OUTSIDE RECORDS SUMMARY | 2018-09-20 08:22 | XMS RPT_ITS | Continuity of Care Document ---
:1940 Author Organization [facility] Address [address] [place] [address] Phone Care Team Providers Name Role Phone Flory Pantoja MD Unavailable Unavailable Unavailable Problems Name Dates Details [...] : 25-May-2018 Active Comments:05-25-[address] [facility] d/c AzaTHIOprine 50 MG Oral Tablet 2 (two) Tablet Tablet qd for 0 days Quantity: 60 {Tablet} Refills: 0 Ordered:29-May-2018 Flory Pantoja MD, MD, Dana M Start : 04-May-2018 Active Bisacodyl 10 MG Rectal Suppository 1 (one) Suppository Suppository rectally qd for 0 days Quantity: 30 {Suppository} Refills: 0 Ordered:05-Aug-2017 Flory Pantoja MD, MD, Dana M Start : 04-Aug-2017 Active Cefadroxil 1 GM Oral Tablet 1 (one) Tablet Tablet bid for 10 days for 10 days Refills: 0 Ordered:29-May-2018 Flory Pantoja MD, MD, Dana M Start : 25-May-2018 Active Flax Seed Oil 1300 MG Oral [...] 100 UNIT/ML Subcutaneous Solution Cartridge 6 Unit Unit tid with meals for 0 days Quantity: 2 {Pre-filled_Pen_Syringe} Refills: 0 Ordered:29-May-2018 Flory Pantoja MD, MD, Dana M Start : 30-Mar-2018 Active Ipratropium-Albuterol 0.5-2.5 (3) MG/3ML Inhalation Solution 1 [...] M Start : 28-May-2018 Active Comments:DX: E11.9NPI: [id number] [facility] Lisinopril 10 MG Oral Tablet 1 (one) Tablet Tablet qd for 0 days Quantity: 30 {Tablet} Refills: 0 Ordered:29-May-2018 Flory Pantoja MD, MD, Dana M Start : 25-May-2018 Active Lotensin 10 MG Oral Tablet 1 (one) Tablet Tablet qd for 0 days Quantity: 30 {Tablet} Refills: 0 Ordered:05-Aug-2017 Flory Pantoja MD, MD, Dana M Start : 04-Aug-2017 Active Magnesium Oxide 500 MG Oral Tablet 2 (two) Tablet bid for 0 days Quantity: 180 {Tablet} Refills: 0 Ordered:25-May-2018 Flory Pantoja MD, MD, Dana M Start : 25-May-2018 Active Comments:05-25-18 dose changed per [facility] Mometasone Furoate 50 MCG/ACT Nasal Suspension 2 (two) [place] each nostril qd for 0 days Quantity: [...] Dana M Start : 25-May-2018 Active Comments:per dc [facility] 11-208 Sertraline HCl 50 MG Oral Tablet 1 [...] MD, Dana M Start : 25-May-2018 Active NovoLOG PenFill 100 UNIT/ML Subcutaneous Solution Cartridge [...] (K85.90, 577.0) Comments: seen on CT scan[facility] 06-27-17 show distended gall bladder but us okay and felt related to januvia and azathioprine. at this point think related to januvia so restart the aza. will see if rreturn. Status: Resolved as of 15-Dec-2017 Procedures Procedure Dates Details Colonoscopy, Screening Completed Comments: 11-03-2014 with biopsy right inguinal hernia 1960's Completed Date Value Details 08-May-2018 History and Physical Exam Result: Comments: See Note; NOTES: [facility] Medical Records Department [address] [place] [address] History and Physical 05/08/18 1603 MR#: [id number] Acct: [id number] Name: Saul HEATH Rep #: [id number] : 1940 78 From: Anushka Dickson GLUE MIXER-C PCP: Flory Pantoja MD Status: REG ER [...] Hypoxic Respiratory Failure (4L NC) following w/ Chain [employer]ing [employer] [facility] who presents to the [facility] ED on 05/08/18 w/ history of ongoing [...] Hypoxic Respiratory Failure (4L NC) 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 Inpatient E AND M: 51683 Init Hosp L3 05/08/18 1648 &#6 0;Electronically [...] follows with Dr. 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 Type 2 diabetes mellitus with diabetic crmzykkrur-Rwyv-Lotnh before meals at bedtime. Continue home Levemi [...] Signature: Date (if applicable) Jada Diop CC: MARCK-C Anushka Dickson; Jada Diop; Flory Pantoja MD Signed 08-May-2018 History and Physical Exam Result: Comments: See Note; NOTES: [facility] Medical Records Department [address] [place] [address] History and Physical 05/08/18 1603 MR#: [id number] Acct: [id number] Name: Saul HEATH LUIS [place] Rep #: [id number] : 1940 78 From: Anushka DIANAC PCP: [...] s with Dr. 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 Type 2 diabetes mellitus with diabetic uifwhuszui-Yfjh-Cegwu before meals at bedtime. Continue home Levemir [...] <Electronically signed by Liz DIANAC> Date Anushka AMBRIZ 05/08/18 1633<Electronically signed by Jada Diop > Cosigner Signature: D ate (if applicable) Jada Diop CC: PB Dickson; Jada Diop; Flory Pantoja MD Signed 08-May-2018 Chest PA and Lateral Result: Comments: See Note; NOTES: [facility] Imaging Services [address] [place] [address] Chest PA and Lateral MR#: [id number] Acct: [id number] Name: Ronni Heath Latricia Rep #: [id number] : 1940 M 78 From: Saad Berry MD PCP: Flory Pantoja MD Status: REG ER Study: Chest PA and Lateral Date of Exam: 05/08/18 Exam# [id number] Ordering Dr: Rodolfo Stanford MD STUDY: X-RAY [...] Saad Berry MD at 14:48 EST Tel [phone], Service supp ort , CC: Flory Pantoja MD; Rodolfo Stanford MD Sugar Controller: Signed Social History Name Dates Details Current Work/Study Status Comments: 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 use to live in [place] Status: Active Living Situation Comments: live with Status: Active Non Drinker/No Alcohol Use Status: Active Non Smoker/No Tobacco Use Comments: smoked 3 ppd from Status: Active Vital Signs Date Test Result Details 21-Bra-206158:44 Pulse 67 /min Comments: Pattern: Regular Respiration Rate 18 /min O2 SAT 95 % Comments: 10L O2 BP Systolic 100 mm[Hg] Comments: Patient Position: Sitting BP Diastolic 65 mm[Hg] Comments: Patient Position: Sitting :41 Pulse 80 /min Comments: Pattern: Regular Respiration Rate 24 /min O2 SAT 98 % Comments: 4L O2 BP Systolic 118 mm[Hg] Comments: Patient Position: Sitting BP Diastolic 70 mm[Hg] Comments: Patient Position: Sitting 91-Jwt-767855:25 Pulse 98 /min Comments: Pattern: Regular Respiration [...] Position: Sitting Results Date Description Value Details :05 Basic Metabolic Profile (BMP) Comments: [facility] [address] [place], [address] GAP 8 (Normal) Range: 5-15 CO2 29.0 [...] A.D.A. criteria.Please note revised GLUCOSE reference range suaxrhegy88/02/2018. 5-Vvq-617039:05 CBC W/Diff, Automated Comments: [facility] [address] [place], [address] Absolute Lymph 0.74 {X10_3/ul} (Abnormal) [...] 4.6-6.2 WBC 9.4 K/mm3 (Normal) Range: 4.4-11.0 7-Xqj-958300:05 Lactic Acid Comments: Yes/No query for Sepsis Lactate Rule [facility] [address] [place], [id number] LACTIC ACID 2.2 mmol/L (Abnormal) Range: 0.4-2.0 Comments: Critical Result(s) Called at: 14:48:04 05/08/2018 by: Citlaly Martinez RN 7-Zcd-072165:05 Troponin-I Comments: [facility] [address] [place], [address] TROPONIN-I < 0.015 ng/mL (Normal) Comments: TROPONIN-I EXPECTED VALUES <0.045 Negative 0.045 - 0.590 Consistent with Cardiac Damage > OR = 0.600 Critical Value Not every elevated troponin is indicative of CA. T hesevalues should be used with clinical judgement in examiningthe patient's clinical picture for diagnosis. To establisha diagnosis of CA versus myocardial injury, there must be ademonstrated rise and/ or fall in the troponin values, inaddition to ischemic symptoms, EKG changes, new regionalwall motion abnormality, and/or angiographical evidence. PLEASE NOTE: REFERENCE RANGES EDITED 11/10/1723-Mar-201833-Ggg-654479:14 Comp. Metabolic Panel Comments: PATIENT NOT FASTINGPERFORMED BY: BN [facility] [address] [id number] BY: CB [facility] Ulrjdg2502 [facility] [id number] (14) ALT (SGPT) 26 [iU]/L (Normal) Range: [...] % (Abnormal) Comments: PATIENT NOT FASTINGPERFORMED BY: [employer] [id number] BY: Maluuba70 [employer] [facility] [id number] 4:14 Range: 4.8-5.6 Comments: . Prediabetes: 5.7 - 6.4 Diabetes: >6.4 Glycemic control for adults with diabetes: <7.0 24-Qaq-482956:14 NMR LipoProfile Comments: PATIENT NOT FASTINGPERFORMED BY: [employer] [id number] BY: Maluuba70 [facility] [id number] Inf ormation: NURSE DRAW LP-IR Score 52 (Abnormal) Comments: INSULIN RESISTANCE MARKER <--Insulin Sensitive Insulin Resistant--> Percentile in Reference PopulationInsulin Resistance ScoreLP-IR Score Low 25th 50th 75th High <27 27 45 63 >63LP-IR Score is inaccurate if patient is non-fasting. .The LP-IR score is a laboratory developed [facility] that has beenassociated with insulin [...] were developed and their performance characteristicsdetermined by [email or web address].com. These assays have not been cleared by [...] 1600 - 2000 Very High > 2000 72-Qbg-715205:14 MAGNESIUM (68983) Comments: PATIENT NOT FASTINGPERFORMED BY: [facility]CoH[facility] CenterPmyesbefsj2772 [facility] [id number] BY: [facility]CoSaint [facility] Hospital at DenvilleRsljpo1711 [facility] [id number] Magnesium 1.7 mg/dL (Normal) Range: 1.6-2.3 96-Qfj-400304:14 CBC, PLATELETS & MANUAL Comments: PATIENT NOT FASTINGPERFORMED BY: [facility]CoHack[facility] Medical CenterXgbteqstsv4459 [facility] [id number] BY: [facility] [id number] DIFF (79424) Hematology Comments: Note: (Normal) Comments: Verified by [...] 4.14-5.80 WBC 6.2 {x10E3/uL} (Normal) Range: 3.4-10.8 50-Jeg-33237:00 MAGNESIUM (57814) Comments: recheck in 2 weeks; PATIENT NOT FASTINGPERFORMED BY: [facility] [facility]6370 [facility] [id number] Information: NURSE DRAW Magnesium 1.5 mg/dL (Abnormal) Range: 1.6-2.3 35-Gyz-480698:39 DINAH JACKSON, BY NMR Comments: PATIENT WAS FASTINGPERFORMED BY: [address] [id number] Information: NURSE DRAW (80788) LP-IR Score 43 (Normal) Comments: INSULIN RESISTANCE MARKER <--Insulin Sensitive Insulin Resistant--> Percentile in Reference PopulationInsulin Resistance ScoreLP-IR Score Low 25th 50th 75th High <27 27 45 63 >63LP-IR Score is inaccurate if patient is non-fasting. .The LP-IR score is a laboratory developed i [facility] that has beenassociated with insulin [...] were developed and their performance characteristicsdetermined by [email or web address].com. These assays have not been cleared by [...] 1600 - 2000 Very High > 2000 26-Bpt-65429:14 HGB A1C (06438) Comments: PATIENT NOT FASTINGPERFORMED BY: [facility]6370 [facility] [id number] Hemoglobin A1c 8.9 % (Abnormal) Range: 4.8-5.6 Comments: . Pre-diabetes: 5.7 - 6.4 Diabetes: >6.4 Glycemic control for adults with diabetes: <7.0 :14 CBC, Platelets & Auto Diff Comments: PATIENT NOT FASTINGPERFORMED BY: [employer] [id number] Information: NURSE DRAW (90709) Immature Grans (Abs) 0.0 {x10E3/uL} (Normal) Range: [...] 7.4 {x10E3/uL} (Normal) Range: 3.4-10.8 :14 Magnesium (22395) Comments: PATIENT NOT FASTINGPERFORMED BY: [facility] [id number] Magnesium 1.5 mg/dL (Abnormal) Range: 1.6-2.3 :14 Metabolic Panel, Comprehensive Comments: PATIENT NOT FASTINGPERFORMED BY: [facility] [id number] (71695) ALT (SGPT) 19 [iU]/L (Normal) Range: 0-44 [...] of Care Name Dates Details Planned Observations Metabolic Panel, Basic (23678)Indication: Diabetes mellitus, type 2 On: :31 Request CBC with auto diff (50958)Indication: Pneumonia, bacterial On: :31 Request Methymalonic Acid, Serum (25002)Indication: Thrombocytopenia On: :08 Request Comments: check in 4 weeks week of 04-20-18 Vitamin B-12 (cyanocobalamin) (58863)Indication: Thrombocytopenia On: :07 Request Comments: check in 4 weeks (week of 04-20-18) Platelet Count, Citrated (37246)Indication: Thrombocytopenia On: :07 Request Comments: draw in citrate tube check in 4 weeks (week of 04-20-18) Metabolic Panel, Comprehensive (17406)Indication: Diabetes mellitus, type 2 On: :33 Request Comments: re check in 3 months LIPOPROTEIN, BLD, BY NMR (72137)Indication: Hyperlipidemia On: :32 Request Comments: re check in 3 months HGB A1C (65073)Indication: Diabetes mellitus, type 2 On: :32 Request Comments: re check in 3 months MICROALBUMIN: CREATININE RATIO (58500) AND (38794)Indication: Diabetes mellitus, type 2 On: 22-Wby-447323:09 Request Planned Encounters Medical; KAYLYN Home Visit Problem - On: 06-Aug-2018 15:00 [facility] Kit SALDANA, Flory Pantoja MD, Flory Louise Planned Procedures Flu Vaccine (Quadrivalent) On: 23-Mar-2018 Intent 22396Tz: Flory Pantoja MD Comments: Lot #:[id number] date: 8-02-98Lqsyoj given:0.5mlRoute: IMSite given:L DltdGiven by: Dr. Pantoja VIS and ABN signed [employer] Flory Pantoja MD Encounters Office Visit On: 28-May-2018 15:03 Encounter Diagnosis: [...]
--- OUTSIDE RECORDS SUMMARY | 2018-09-20 08:23 | XMS RPT_ITS | Continuity of Care Document ---
:1940 Author Organization [facility] Address [address] [place] [address] Phone Care Team Providers Name Role Phone [...] Start : 25-May-2018 Active Comments:05-25-18 dose per [facility] d/c AzaTHIOprine 50 MG Oral Tablet 2 (two) Tablet Tablet qd for 0 days Quantity: 60 {Tablet} Refills: 0 Ordered:29-May-2018 Flory Pantoja MD, MD, Dana M Start : 04-May-2018 Active Bisacodyl 10 MG Rectal Suppository 1 (one) Suppository Suppository rectally qd for 0 days Quantity: 30 {Suppository} Refills: 0 Ordered:05-Aug-2017 Flory aPntoja MD, MD, Dana M Start : 04-Aug-2017 [...] M Start : 02-Jul-2018 Active Comments:DX: E11.9NPI: [id number] Ipratropium-Albuterol 0.5-2.5 (3) MG/3ML Inhalation Solution 1 [...] M Start : 28-May-2018 Active Comments:DX: E11.9NPI: [id number] slidibn scale Lisinopril 10 MG Oral Tablet 1 [...] : 25-May-2018 Active Comments:05-25-18 dose changed per [facility] Mometasone Furoate 50 MCG/ACT Nasal Suspension 2 (two) Mckinney Mckinney each nostril qd for 0 days Quantity: [...] Dana M Start : 25-May-2018 Active Comments:per fco [facility] 11-208 Sertraline HCl 50 MG Oral Tablet [...] (K85.90, 577.0) Comments: seen on [facility] scan[facility] 06-27-17 show distended gall bladder but us okay and felt related to januvia and azathioprine. at this point think related to januvia so restart the aza. will see if rreturn. Status: Resolved as of 15-Dec-2017 Hospital discharge follow-up (Z09, V67.59) Status: Resolved as of 10-Jul-2018 Procedures Procedure Dates Details Colonoscopy, Screening Completed Comments: 11-03-2014 with biopsy right inguinal hernia s Completed Date Value Details 02-Jul-2018 Chest PA and Lateral Result: Comments: See Note; NOTES: [facility] Imaging Services [address] [place] [address] Chest PA and Lateral MR#: [id number] Acct: [id number] Name: RONNI HEATH Rep #: [id number] : 1940 M 78 From: Martinez Smith MD PCP: Flory Pantoja MD Status: REG CLI Study: Chest PA and Lateral Date of Exam: 07/02/18 Exam# [id number] Ordering Dr: Flory Pantoja MD STUDY: X-RAY [...] Service support , CC: Flory Pantoja MD Building Guard Deputy Sheriff: Signed 08-May-2018 History and Physical Exam Result: Comments: See Note; NOTES: [facility] Medical Records Department [address] [place] [address] History and Physical 05/08/18 1603 MR#: [id number] Acct: [id number] Name: Saul HEATH Rep #: [id number] : 1940 78 From: Anushka Dickson 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 Inpatient E AND M: 09983 Init Hosp L3 05/08/18 1648 &#6 0;Electronically [...] follows with Dr. Pressley as well as patient admitting representative at [facility] which he was referred to [...] 5. Type 2 diabetes mellitus with diabetic ktokraqncv-Axig-Ovbpo before meals at bedtime. Continue home Levemi [...] Diop. 05/08/18 1628 <Electronically signed by Anushka AMBRIZ> Date Anushka AMBRIZ 05/08/18 1633<Elect ronically signed by Jada Diop > Cosigner Signature: Date (if applicable) Jada Diop CC: PB Dickson; Jada Diop; Flory Pantoja MD Signed 08-May-2018 History and Physical Exam Result: Comments: See Note; NOTES: [facility] Medical Records Department [address] [place] [address] History and Physical 05/08/18 1603 MR#: [id number] Acct: [id number] Name: Saul HEATH Rep #: [id number] : 1940 78 From: Anushka AMBRIZ PCP: [...] s with Dr. Pressley as well as patient admitting representative at [facility] which he was referred to [...] 5. Type 2 diabetes mellitus with diabetic ktiqcqnohp-Cfts-Uwohd before meals at bedtime. Continue home Levemir and Humalog regimen. Continue home gabapentin regimen. 6. CAD-c ontinue aspirin, statin. Troponin negative x1 in ER. Patient denies chest pain. 7. Obesity- Encourage diet and lifestyle modifications. Nutrition consult. 8. Depression-continue home Zoloft regimen. 9. Chronic normocytic anemia-stable. DVT prophylaxis-Lovenox sc. This patient was seen by PB Shaffer under the supervision of Dr. Diop. 05/08/188 <Electronically signed by Liz AMBRIZ> Date Anushka AMBRIZ 05/08/18 1633<Electronically signed by Jada Diop > Cosigner Signature: D ate (if applicable) Jada Diop CC: PB Dickson; Jada Diop; Flory Pantoja MD Signed 08-May-2018 Chest PA and Lateral Result: Comments: See Note; NOTES: [facility] Imaging Services [address] [place] [address] Chest PA and Lateral MR#: [id number] Acct: [id number] Name: Ronni Heath Rep #: [id number] : 1940 M 78 From: Saad Berry MD PCP: Flory Pantoja MD Status: REG ER Study: Chest PA and Lateral Date of Exam: 05/08/18 Exam# [id number] Ordering Dr: Rodolfo Stanford MD STUDY: X-RAY [...] Saad Berry MD at 14:48 EST Tel [phone], Service supp ort , CC: Flory Pantoja MD; Rodolfo Stanford MD Building Guard Deputy Sheriff: Signed Social History Name Dates Details Current Work/Study Status Comments: 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 use to live in [place] Status: Active Living Situation Comments: live with Status: Active Non Drinker/No Alcohol Use Status: Active Non Smoker/No Tobacco Use Comments: smoked 3 ppd from Status: Active Vital Signs Date Test Result Details :44 Pulse 67 /min Comments: Pattern: Regular Respiration [...] Diastolic 76 mm[Hg] Comments: Patient Position: Sitting 2-Agh-031516:20 Comments: sitting at rest with PO when [...] NOT OBSERVED ON PERIPHERAL SMEAR; RESULTEDFROM NON-CITRATE TUBE.[facility] [address] [place], [place], [phone] RED CELL MORPH NORM C+C {NORMAL} (Normal) [...] 02-Jul-20189:45 Erythrocyte Sed Rate Comments: [facility]231[facility] [address] [place], [place], [phone] SED RATE 39 mm/h (Abnormal) Range: 0-20 09-Kqc-358053:45 Platelet Count Comments: BELEN CITRATE NON-CLUMPING TUBE [facility] [address] [place], [place], [phone] PLT 67 K/mm3 (Abnormal) Range: 150-450 6-Fqr-596698:00 CBC W/Diff, Automated Comments: [facility] [address] [place], [place], [id number] Absolute Lymph 0.86 {X10_3/ul} (Normal) Range: 0.83-4.51 [...] 4.6-6.2 WBC 11.7 K/mm3 (Abnormal) Range: 4.4-11.0 2-Vhg-926001:00 Comprehensive Metabolic Profil Comments: [facility] [address] [place], [address] GAP 8 (Normal) Range: 5-15 CO2 30.0 [...] A.D.A. criteria.Please note revised GLUCOSE reference range xdupwygvx58/02/2018. 1-Foh-571876:00 Hemoglobin A1c Comments: [facility] [address] [place], [address] HGB A1C 9.7 % (Abnormal) Range: 4.2-6.3 1-Bvr-899234:00 Magnesium Comments: [facility] [address] [place], [address] MG 2.1 mg/dL (Normal) Range: 1.6-2.6 8-Igj-943704:00 Methylmalonic Acid Bld Comments: [facility] (refer to report for specific site)refer to report for address and phone number METHYLM Comments: TEST RESULT LIMITSMethylmalonic Acid, SerumMethylmalonic Acid, Serum 187 nmol/L 0 - 378Disclaimer:This test was developed and its performance characteristicsde 160876 (Normal) termined by [facility]. It has not been cleared or approvedby the Food and Drug Administration. TESTING PERFORMED AT [facility]. ORIGINAL REPORT ON FI LE IN LAB CONTAINS ADDITIONAL TEST SITE INFORMATION. 4-Whf-854699:00 NMR Lipoprofile Comments: [facility] (refer to report [...] SITE INFORMATION. 3 Vitamin B12 1730 Comments: [facility] [address] [place], [address]([phone] - pg/mL Range: 211-911 D (Abnormal e ) c - 2 0 1 8 1 2 : 0 0 1-Ztt-205251:05 Basic Metabolic Profile (BMP) Comments: [facility] [address] [place], [address] GAP 8 (Normal) Range: 5-15 CO2 29.0 [...] A.D.A. criteria.Please note revised GLUCOSE reference range hzesmhamm70/02/2018. 3-Dah-285197:05 CBC W/Diff, Automated Comments: [facility] [address] [place], [place], [address] Absolute Lymph 0.74 {X10_3/ul} (Abnormal) Range: 0.83-4.51 [...] 4.6-6.2 WBC 9.4 K/mm3 (Normal) Range: 4.4-11.0 0-Bka-477896:05 Lactic Acid Comments: Yes/No query for Sepsis Lactate Rule Y[facility] [address] [place], [place], [phone] LACTIC ACID 2.2 mmol/L (Abnormal) Range: 0.4-2.0 Comments: Critical Result(s) Called at: 14:48:04 05/08/2018 by: Citlaly Martinez RN 0-Tyy-018934:05 Troponin-I Comments: [facility] [address] [place], [address] TROPONIN-I < 0.015 ng/mL (Normal) Comments: TROPONIN-I EXPECTED VALUES <0.045 Negative 0.045 - 0.590 Consistent with Cardiac Damage > OR = 0.600 Critical Value Not every elevated troponin is indicative of VT. T hesevalues should be used with clinical judgement in examiningthe patient's clinical picture for diagnosis. To establisha diagnosis of VT versus myocardial injury, there must be ademonstrated rise and/ or fall in the troponin values, inaddition to ischemic symptoms, EKG changes, new regionalwall motion abnormality, and/or angiographical evidence. PLEASE NOTE: REFERENCE RANGES EDITED 11/10/1723-Mar-201823-Wan-763156:14 Comp. Metabolic Panel Comments: PATIENT NOT FASTINGPERFORMED BY: BN [facility] Nbzmwokine0121 [facility] [id number] BY: CB [facility] Pvhxro6306 [facility] [id number] (14) ALT (SGPT) 26 [iU]/L (Normal) Range: [...] % (Abnormal) Comments: PATIENT NOT FASTINGPERFORMED BY: [employer] [place] [address] [id number] BY: [employer] Gvlulg1956 [facility] [id number] 4:14 Range: 4.8-5.6 Comments: . Prediabetes: 5.7 - 6.4 Diabetes: >6.4 Glycemic control for adults with diabetes: <7.0 80-Vkn-094072:14 NMR LipoProfile Comments: PATIENT NOT FASTINGPERFORMED BY: [employer] [id number] BY: [facility] [id number] Inf ormation: NURSE DRAW LP-IR Score 52 (Abnormal) Comments: INSULIN RESISTANCE MARKER <--Insulin Sensitive Insulin Resistant--> Percentile in Reference PopulationInsulin Resistance ScoreLP-IR Score Low 25th 50th 75th High <27 27 45 63 >63LP-IR Score is inaccurate if patient is non-fasting. .The LP-IR score is a laboratory developed i [facility] that has beenassociated with insulin [...] were developed and their performance characteristicsdetermined by [employer]. These assays have not been cleared by [...] 1600 - 2000 Very High > 2000 26-Mgf-346484:14 MAGNESIUM (39232) Comments: PATIENT NOT FASTINGPERFORMED BY: [facility] Nribywswdi5462 [facility] [id number] BY: [facility] Abkejc9775 [facility] [id number] Magnesium 1.7 mg/dL (Normal) Range: 1.6-2.3 77-Nge-638324:14 CBC, PLATELETS & MANUAL Comments: PATIENT NOT FASTINGPERFORMED BY: KATHY [facility] Ijnpzkjteo0208 [facility] [id number] BY: ELVIN [facility] Piiclt9957 [address] [id number] DIFF (15606) Hematology Comments: Note: (Normal) Comments: Verified by [...] 4.14-5.80 WBC 6.2 {x10E3/uL} (Normal) Range: 3.4-10.8 51-Mbm-93531:00 MAGNESIUM (62358) Comments: recheck in 2 weeks; PATIENT NOT FASTINGPERFORMED BY: [facility] [address]hz[address] [place] [id number] Information: NURSE DRAW Magnesium 1.5 mg/dL (Abnormal) Range: 1.6-2.3 98-Ugf-224499:39 LIPOPROTEIN, BLD, BY NMR Comments: PATIENT WAS FASTINGPERFORMED BY: [facility] Jzylwpivmn2198 [facility] [id number] Information: NURSE DRAW (45217) LP-IR Score 43 (Normal) Comments: INSULIN RESISTANCE MARKER <--Insulin Sensitive Insulin Resistant--> Percentile in Reference PopulationInsulin Resistance ScoreLP-IR Score Low 25th 50th 75th High <27 27 45 63 >63LP-IR Score is inaccurate if patient is non-fasting. .The LP-IR score is a laboratory developed i [facility] that has beenassociated with insulin [...] were developed and their performance characteristicsdetermined by [employer]. These assays have not been cleared by [...] 1600 - 2000 Very High > 2000 97-Bdv-43014:14 HGB A1C (16134) Comments: PATIENT NOT FASTINGPERFORMED BY: [facility] [id number] Hemoglobin A1c 8.9 % (Abnormal) Range: 4.8-5.6 Comments: . Pre-diabetes: 5.7 - 6.4 Diabetes: >6.4 Glycemic control for adults with diabetes: <7.0 :14 CBC, Platelets & Auto Diff Comments: PATIENT NOT FASTINGPERFORMED BY: [employer] LabCoRaySatRmimxx8545 [facility] [id number] Information: NURSE DRAW (61238) Immature Grans (Abs) 0.0 {x10E3/uL} (Normal) Range: [...] 7.4 {x10E3/uL} (Normal) Range: 3.4-10.8 :14 Magnesium (81528) Comments: PATIENT NOT FASTINGPERFORMED BY: [facility]CoSummit Oaks HospitalMrefdc1703 [facility] [id number] Magnesium 1.5 mg/dL (Abnormal) Range: 1.6-2.3 :14 Metabolic Panel, Comprehensive Comments: PATIENT NOT FASTINGPERFORMED BY: LabCoSummit Oaks HospitalFlvhqf4962 [facility] [id number] (33607) ALT (SGPT) 19 [iU]/L (Normal) Range: 0-44 [...] Details Planned Observations CBC WITH MANUAL DIFF (48696)Indication: Pulmonary fibrosis On: :23 Request Comments: copy to Dr. PressleyPT IS HOMEBOUND CULTURE, SPUTUM (32051)Indication: Pulmonary fibrosis On: :22 Request Comments: copy to Dr. Pressley Metabolic Panel, Comprehensive (91195)Indication: Pulmonary fibrosis On: :22 Request Comments: copy to Dr. Pressley CBC, Platelets & Auto Diff (37603)Indication: Thrombocytopenia On: :42 Request Comments: draw in a non clumping citrate tubeplease do a manual peripheral smear draw 06-24-18 Platelet 78467 (citrate, nonclumping tube)Indication: Thrombocytopenia On: :43 Request Comments: PT IS HOMEBOUND PLEASE DRAW 06-08-18 Metabolic Panel, Basic (53728)Indication: Diabetes mellitus, type 2 On: :31 Request CBC with auto diff (26252)Indication: Pneumonia, bacterial On: :31 Request Methymalonic Acid, Serum (79502)Indication: Thrombocytopenia On: :08 Request Comments: check in 4 weeks week of 04-20-18 Vitamin B-12 (cyanocobalamin) (59690)Indication: Thrombocytopenia On: :07 Request Comments: check in 4 weeks (week of 04-20-18) Platelet Count, Citrated (84541)Indication: Thrombocytopenia On: 87-Aws-649759:07 Request Comments: draw in citrate tube check in 4 weeks (week of 04-20-18) Metabolic Panel, Comprehensive (58178)Indication: Diabetes mellitus, type 2 On: 6-Spk-982546:33 Request Comments: re check in 3 months LIPOPROTEIN, BLD, BY NMR (60874)Indication: Hyperlipidemia On: 1-Gwi-043023:32 Request Comments: re check in 3 months HGB A1C (58929)Indication: Diabetes mellitus, type 2 On: :32 Request Comments: re check in 3 months MICROALBUMIN: CREATININE RATIO (67321) AND (16151)Indication: Diabetes mellitus, type 2 On: 67-Slo-534421:09 Request Planned Encounters Medical; [facility] Problem - On: 06-Aug-2018 15:00 [facility] Kit SALDANA, Flory Culver MD Planned Procedures CHEST XRAY, PA & LATERAL (05094)By: On: 10-Jul-2018 Intent Flory Pantoja MD, MD, Dana Comments: copy to Dr. Huan Louise Flu Vaccine (Quadrivalent) 85625Fv: On: 23-Mar-2018 Flory Mireles MD, MD, Dana Comments: Lot #:[id number] date: 7-01-03Jwldls given:0.5mlRoute: IMSite given:L DltdGiven by: Dr. Kit [...]
--- OUTSIDE RECORDS SUMMARY | 2018-09-20 08:23 | XMS RPT_ITS | Continuity of Care Document ---
:1940 Author Organization [facility] Address [address] [place] [address] Phone Care Team Providers Name Role Phone Flory Pantoja MD Unavailable ROSALIA Arora Unavailable Unavailable Unavailable Unavailable [...] a day low sugar 30 g protien. recommend add vegetable at dinner. willcheck BS 4 times a day for next Status: Active Diabetic neuropathy (E11.40, 250.60) Comments: [...] sounds like ulnar neuropathy but slowly better. Status: Active Pulmonary fibrosis (J84.10, 515) Comments: felt to be RA. was on azathioprine did help slow progression but off with pancreatitis 06-15. follow with DR tamar BLANCO see him in the spring. back on the AZA since having pancrea titis felt m ore related to januvia. was not able to do the 6mwt andhopig can do in -18echo - good EF obrych first did biosy and thought in 3 years. has out lived that beenon aza for years and hep stabilze Status: Active Rheumatoid arthritis of foot, unspecified laterality, unspecified rheumatoid factor presence (M06.9, 714.0) Status: Active SVT (supraventricular tachycardia) (I47.1, 427.89) [...] M Start : 04-Aug-2017 Active Atorvastatin Calcium 20 MG Oral Tablet 1 (one) Tablet qd for 0 days Quantity: 30 {Tablet} Refills: 0 Ordered:05-Jan-2018 Flory Pantoja MD, MD, Dana M Start : 05-Jan-2018 Active Bisacodyl 10 MG Rectal Suppository 1 (one) Suppository Suppository rectally qd for 0 days Quantity: 30 {Suppository} Refills: 0 Ordered:05-Aug-2017 Flory Pantoja MD, MD, Dana M Start : 04-Aug-2017 Active Flax Seed Oil 1300 MG Oral Capsule 1 (one) Capsule Capsule qd for 0 days Quantity: 30 {Capsule} Refills: 0 Ordered:05-Aug-2017 Flory Pantoja MD, MD, Dana M Start : 04-Aug-2017 Active Gabapentin 600 MG Oral Tablet 1 (one) Tablet tid for 0 days Quantity: 270 {Tablet} Refills: 1 Ordered:26-Jan-2018 Flory Pantoja MD, MD, Dana M Start : 26-Jan-2018 Active Comments:two hundred and seventy HumaLOG 100 UNIT/ML Subcutaneous Solution Cartridge 6 Unit tid with meals for 0 days Quantity: 2 {Pre-filled_Pen_Syringe} Refills: 0 Ordered:30-Mar-2018 Flory Pantoja MD, MD, Dana M Start : 30-Mar-2018 Active Levemir FlexTouch 100 UNIT/ML Subcutaneous Solution Pen-injector 24 Unit qhs for 30 days Quantity: 15 {Cartridge} Refills: 5 Ordered:05-Jan-2018 Flory Pantoja MD, MD, Dana M Start : 05-Jan-2018 Active Comments:DX: E11.9NPI: [id number] Lotensin 10 MG Oral Tablet 1 (one) Tablet Tablet qd for 0 days Quantity: 30 {Tablet} Refills: 0 Ordered:05-Aug-2017 Flory Pantoja MD, MD, Dana M Start : 04-Aug-2017 Active Magnesium Oxide 500 MG Oral Tablet 2 (two) Tablet tid for 0 days Quantity: 180 {Tablet} Refills: 0 Ordered:05-Jan-2018 Flory Pantoja MD, MD, Dana M Start : 05-Jan-2018 Active Mometasone Furoate 50 MCG/ACT Nasal Suspension 2 (two) [place] each nostril qd for 0 days Quantity: 1 {Box} Refills: 0 Ordered:05-Aug-2017 Flory Pantoja MD, MD, Dana M Start : 04-Aug-2017 Active Multi Vitamin Oral Tablet 1 (one) [...] MD, Dana M Start : 05-Jan-2018 Active Sertraline HCl 50 MG Oral Tablet 1 (one) Tablet Tablet qd for 0 days Quantity: 30 {Tablet} Refills: 0 Ordered:05-Aug-2017 Flory Pantoja MD, MD, Dana M Start : 04-Aug-2017 Active TiZANidine HCl 4 MG Oral Tablet 1/2-1 Tablet qhs prn for 0 days Quantity: 30 {Tablet} Refills: 3 Ordered:21-Jan-2018 Flory Pantoja MD, MD, Dana M Start : 21-Jan-2018 Active Uroxatral 10 MG Oral Tablet Extended [...] 150 MG Oral Tablet 1 (one) Tablet daily for 0 days Quantity: 60 {Tablet} Refills: 3 Ordered:18-Feb-2018 Flory Pantoja MD, MD, Dana M Start : 18-Feb-2018 Active NovoLOG PenFill 100 UNIT/ML Subcutaneous Solution [...] Start : 04-Aug-2017 End : 05-Aug-2017 Discontinued Glucosamine Chondroitin Complx Oral Capsule 1 (one) Capsule Capsule bid for 0 days Quantity: 60 {Capsule} Refills: 0 Ordered:05-Aug-2017 Flory Pantoja MD, [...] 577.0) Comments: seen [facility]17 show distended gall bladder but us okay and felt related to januvia and azathioprine. at this point think related to januvia so restart the aza. will see if rreturn. 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 use to live in [place] Status: Active Living Situation Comments: live with Status: Active Non Drinker/No Alcohol Use Status: Active Non Smoker/No Tobacco Use Comments: smoked 3 ppd from Status: Active Vital Signs Date Test Result Details 94-Stt-414173:41 Pulse 80 /min Comments: Pattern: Regular Respiration Rate 24 /min O2 SAT 98 % Comments: 4L O2 BP Systolic 118 mm[Hg] Comments: Patient Position: Sitting BP Diastolic 70 mm[Hg] Comments: Patient Position: Sitting 16-Vty-434500:25 Pulse 98 /min Comments: Pattern: Regular Respiration Rate 16 /min O2 SAT 98 % Comments: 4L O2 BP Systolic 122 mm[Hg] Comments: Patient Position: Sitting BP Diastolic 76 mm[Hg] Comments: Patient Position: Sitting Weight 245 lb 6-Vch-010397:37 Temperature 97.9 f Comments: Method: Oral Pulse 94 /min Comments: Pattern: Regular Respiration Rate 20 /min O2 SAT 98 % Comments: Room air BP Systolic 112 mm[Hg] Comments: Patient Position: Sitting BP Diastolic 76 mm[Hg] Comments: Patient Position: Sitting 2-Zqu-577031:20 Comments: sitting at rest with PO when walking short distance drops down. Temperature 98.5 f Comments: Method: Oral Pulse 98 /min Comments: Pattern: Regular Respiration Rate 22 /min O2 SAT 97 % Comments: Room air BP Systolic 112 mm[Hg] Comments: Patient Position: Sitting BP Diastolic 68 mm[Hg] Comments: Patient Position: Sitting Results Date Description Value Details 92-Ejz-997899:14 Comp. Metabolic Panel Comments: PATIENT NOT FASTINGPERFORMED BY: [address]venias[address] [id number] BY: InveniasJersey City Medical CenterEealwq023[address] [place] [address] [id number] (14) ALT (SGPT) 26 [iU]/L (Normal) Range: [...] % (Abnormal) Comments: PATIENT NOT FASTINGPERFORMED BY: [address]ven[address] [id number] BY: InveniasJersey City Medical CenterXmzuop0263 [facility] [id number] 4:14 Range: 4.8-5.6 Comments: . Prediabetes: 5.7 - 6.4 Diabetes: >6.4 Glycemic control for adults with diabetes: <7.0 67-Lzz-945259:14 NMR LipoProfile Comments: PATIENT NOT FASTINGPERFORMED BY: BN [facility] Uaskggszcl0636 [facility] [id number] BY: ELVIN [facility] Ieqrjo1064 Stephanie [facility] [id number] Inf ormation: NURSE DRAW LP-IR Score 52 (Abnormal) Comments: INSULIN RESISTANCE MARKER <--Insulin Sensitive Insulin Resistant--> Percentile in Reference PopulationInsulin Resistance ScoreLP-IR Score Low 25th 50th 75th High <27 27 45 63 >63LP-IR Score is inaccurate if patient is non-fasting. .The LP-IR score is a laboratory developed i [facility] that has beenassociated with [...] were developed and their performance characteristicsdetermined by [employer]. These assays have not been cleared by [...] 1600 - 2000 Very High > 2000 69-Bmi-103783:14 MAGNESIUM ([id number]) Comments: PATIENT NOT FASTINGPERFORMED BY: [facility] [address] [id number] BY: LabCoJersey City Medical CenterGobsmw0264 [facility] [id number] Magnesium 1.7 mg/dL (Normal) Range: 1.6-2.3 74-Rwc-976950:14 CBC, PLATELETS & MANUAL Comments: PATIENT NOT FASTINGPERFORMED BY: [facility] [address] [id number] BY: LabCoJersey City Medical CenterPmsdxt3255 [facility] [id number] DIFF ([id number]) Hematology Comments: Note: (Normal) Comments: Verified by [...] 4.14-5.80 WBC 6.2 {x10E3/uL} (Normal) Range: 3.4-10.8 27-Cjv-09873:00 MAGNESIUM ([id number]) Comments: recheck in 2 weeks; PATIENT NOT FASTINGPERFORMED BY: [facility] [address] [id number] Information: NURSE DRAW Magnesium 1.5 mg/dL (Abnormal) Range: 1.6-2.3 78-Wmp-579442:39 LIPOPROTEIN, BLD, BY NMR Comments: PATIENT WAS FASTINGPERFORMED BY: [facility] [address] [id number] Information: NURSE DRAW (12925) LP-IR Score 43 (Normal) Comments: INSULIN RESISTANCE MARKER <--Insulin Sensitive Insulin Resistant--> Percentile in Reference PopulationInsulin Resistance ScoreLP-IR Score Low 25th 50th 75th High <27 27 45 63 >63LP-IR Score is inaccurate if patient is non-fasting. .The LP-IR score is a laboratory developed i [facility] that has beenassociated with insulin resistance and [...] were developed and their performance characteristicsdetermined by [employer]. These assays have not been cleared by [...] 1600 - 2000 Very High > 2000 :14 HGB A1C (57709) Comments: PATIENT NOT FASTINGPERFORMED BY: ELVIN [facility] Hospitallin6370 [facility] [id number] Hemoglobin A1c 8.9 % (Abnormal) Range: 4.8-5.6 Comments: . Pre-diabetes: 5.7 - 6.4 Diabetes: >6.4 Glycemic control for adults with diabetes: <7.0 :14 CBC, Platelets & Auto Diff Comments: PATIENT NOT FASTINGPERFORMED BY: ELVIN [facility]6370 [facility] [id number] Information: NURSE DRAW ([id number]) Immature Grans (Abs) 0.0 {x10E3/uL} (Normal) Range: [...] 7.4 {x10E3/uL} (Normal) Range: 3.4-10.8 :14 Magnesium (29600) Comments: PATIENT NOT FASTINGPERFORMED BY: [facility] Hpkjtx7347 [facility] [id number] Magnesium 1.5 mg/dL (Abnormal) Range: 1.6-2.3 77-Gor-02958:14 Metabolic Panel, Comprehensive Comments: PATIENT NOT FASTINGPERFORMED BY: LabCoJersey City Medical CenterPzjemn9683 [facility] [id number] (60961) ALT (SGPT) 19 [iU]/L (Normal) Range: 0-44 [...] of Care Name Dates Details Planned Observations Methymalonic Acid, Serum (28666)Indication: Thrombocytopenia On: 24-Kfl-450217:08 Request Comments: check in 4 weeks week of 04-20-18 Vitamin B-12 (cyanocobalamin) (56768)Indication: Thrombocytopenia On: 60-Ane-138492:07 Request Comments: check in 4 weeks (week of 04-20-18) Platelet Count, Citrated (20626)Indication: Thrombocytopenia On: 26-Zya-896062:07 Request Comments: draw in citrate tube check in 4 weeks (week of 04-20-18) Metabolic Panel, Comprehensive (19401)Indication: Diabetes mellitus, type 2 On: 0-Jlw-641266:33 Request Comments: re check in 3 months LIPOPROTEIN, BLD, BY NMR (71658)Indication: Hyperlipidemia On: 2-Aag-642613:32 Request Comments: re check in 3 months HGB A1C (22770)Indication: Diabetes mellitus, type 2 On: :32 Request Comments: re check in 3 months MICROALBUMIN: CREATININE RATIO (60941) AND (86807)Indication: Diabetes mellitus, type 2 On: 11-Rik-087164:09 Request Planned Encounters Medical; [facility] Problem - need to make sure pt pays [facility] fee On: 25-Jun-2018 15:00 [facility] Flory Pantoja MD, MD, Dana M Planned Procedures Flu Vaccine (Quadrivalent) On: 23-Mar-2018 Intent 19111Wf: Flory Pantoja MD Comments: Lot #:[id number] date: 5-38-51Jteryz given:0.5mlRoute: IMSite given:L DltdGiven by: Dr. Pantoja VIS and ABN signed [employer] Flory Pantoja MD Encounters Phone Encounter On: 30-Mar-2018 12:06 Encounter Diagnosis: [...]
--- OUTSIDE RECORDS SUMMARY | 2018-09-20 08:23 | XMS RPT_ITS | Continuity of Care Document ---
:1940 Author Organization [facility] Address [address] [place] [address] Phone Care Team Providers Name Role Phone [...] Start : 25-May-2018 Active Comments:05-25-18 dose per [facility] d/c AzaTHIOprine 50 MG Oral Tablet [...] {Capsule} Refills: 0 Ordered:25-May-2018 Flory Pantoja MD, MD Flory M Start : 25-May-2018 Active HumaLOG 100 [...] M Start : 28-May-2018 Active Comments:DX: E11.9NPI: [id number] [facility] Lisinopril 10 MG Oral Tablet 1 [...] : 25-May-2018 Active Comments:05-25-18 dose changed per [facility] Mometasone Furoate 50 MCG/ACT Nasal Suspension 2 (two) Tatitlek Tatitlek each nostril qd for 0 days Quantity: [...] Dana M Start : 25-May-2018 Active Comments:per [facility] [address] Sertraline HCl 50 MG Oral Tablet [...] (K85.90, 577.0) Comments: [facility] 06[facility]17 show distended gall bladder but [...] Physical Exam Result: Comments: See Note; NOTES: [facility] Medical Records Department [address] [place] [address] History and Physical 05/08/18 1603 MR#: [id number] Acct: [id number] Name: Saul HEATH Rep #: [id number] : 1940 78 From: Anushka Dickson [employer]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 Inpatient E AND M: 94810 Init Hosp L3 05/08/18 1648 &#6 0;Electronically [...] follows with Dr. 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 Type 2 diabetes mellitus with diabetic hxynxmmofh-Hgol-Fcakw before meals at bedtime. Continue home Levemi [...] Physical Exam Result: Comments: See Note; NOTES: [facility] Medical Records Department [address] [place] [address] History and Physical 05/08/18 1603 MR#: [id number] Acct: [id number] Name: Saul HEATH LUIS [place] Rep #: [id number] : 1940 78 From: Anushka AMBRIZ PCP: [...] s with Dr. 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 Type 2 diabetes mellitus with diabetic lwjaonwgwe-Asio-Lzojz before meals at bedtime. Continue home Levemir [...] Jada Diop CC: PB Dickson; Jada Diop; lFory Pantoja MD Signed 08-May-2018 Chest PA and Lateral Result: Comments: See Note; NOTES: [facility] Imaging Services [address] [place] [address] Chest PA and Lateral MR#: [id number] Acct: [id number] Name: Ronni Heath Latricia Rep #: [id number] : 1940 M 78 From: Saad Berry MD PCP: Flory Pantoja MD Status: REG ER Study: Chest PA and Lateral Date of Exam: 05/08/18 Exam# [id number] Ordering Dr: Rodolfo Stanford MD STUDY: X-RAY [...] Saad Berry MD at 14:48 EST Tel [phone], Service supp ort , CC: Flory Pantoja MD; Rodolfo Stanford MD Assistant Finance Director: Signed Social History Name Dates Details Current Work/Study Status Comments: 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 use to live in [place] Status: Active Living Situation Comments: live with Status: Active Non Drinker/No Alcohol Use Status: Active Non Smoker/No Tobacco Use Comments: smoked 3 ppd from Status: Active Vital Signs Date Test Result Details 59-Cby-623777:44 Pulse 67 /min Comments: Pattern: Regular Respiration Rate 18 /min O2 SAT 95 % Comments: 10L O2 BP Systolic 100 mm[Hg] Comments: Patient Position: Sitting BP Diastolic 65 mm[Hg] Comments: Patient Position: Sitting 38-Apr-028646:41 Pulse 80 /min Comments: Pattern: Regular Respiration Rate 24 /min O2 SAT 98 % Comments: 4L O2 BP Systolic 118 mm[Hg] Comments: Patient Position: Sitting BP Diastolic 70 mm[Hg] Comments: Patient Position: Sitting 86-Spn-772393:25 Pulse 98 /min Comments: Pattern: Regular Respiration [...] Diastolic 76 mm[Hg] Comments: Patient Position: Sitting 9-Ecv-571189:20 Comments: sitting at rest with PO when [...] Platelet Count Comments: BELEN CITRATE NON-CLUMPING TUBE [facility] [address] [facility]. [place], [place], [address](320) PLT 67 K/mm3 (Abnormal) Range: 150-450 :00 CBC W/Diff, Automated Comments: [facility] [address] [facility] [place], [address] Absolute Lymph 0.86 {X10_3/ul} (Normal) Range: 0.83-4.51 [...] 4.6-6.2 WBC 11.7 K/mm3 (Abnormal) Range: 4.4-11.0 9-Lbr-330975:00 Comprehensive Metabolic Profil Comments: [facility] [address] [place], [place], [id number] GAP 8 (Normal) Range: 5-15 CO2 30.0 [...] A.D.A. criteria.Please note revised GLUCOSE reference range skqervvaj46/02/2018. 3-Lgf-475873:00 Hemoglobin A1c Comments: [facility] [address] [place], [address] HGB A1C 9.7 % (Abnormal) Range: 4.2-6.3 3-Hdf-001043:00 Magnesium Comments: [facility] [address] [place], [address] MG 2.1 mg/dL (Normal) Range: 1.6-2.6 3-Qfx-164772:00 Methylmalonic Acid Bld Comments: [facility] (refer to report for specific site)refer to report for address and phone number METHYLM Comments: TEST RESULT LIMITSMethylmalonic Acid, SerumMethylmalonic Acid, Serum 187 nmol/L 0 - 378Disclaimer:This test was developed and its performance characteristicsde 395940 (Normal) termined by [facility]. It has not been cleared or approvedby the Food and Drug Administration. TESTING PERFORMED AT [facility]. ORIGINAL REPORT ON FI SHELLY IN LAB CONTAINS ADDITIONAL TEST SITE INFORMATION. 6-Wvl-289762:00 NMR Lipoprofile Comments: [facility] (refer to report [...] SITE INFORMATION. 3 Vitamin B12 1730 Comments: [facility] [address] [place], [address] - pg/mL Range: 211-911 D (Abnormal e ) c - 2 0 1 8 1 2 : 0 0 0-Jrp-136003:05 Basic Metabolic Profile (BMP) Comments: [facility] [address] [place], [address] GAP 8 (Normal) Range: 5-15 CO2 29.0 [...] A.D.A. criteria.Please note revised GLUCOSE reference range kjlbvluck11/02/2018. 1-Blh-791468:05 CBC W/Diff, Automated Comments: [facility] [address] [place], [place], [address] Absolute Lymph 0.74 {X10_3/ul} (Abnormal) Range: 0.83-4.51 [...] 4.6-6.2 WBC 9.4 K/mm3 (Normal) Range: 4.4-11.0 1-Icm-101662:05 Lactic Acid Comments: Yes/No query for Sepsis Lactate Rule [facility] [address] [place], [id number] LACTIC ACID 2.2 mmol/L (Abnormal) Range: 0.4-2.0 Comments: Critical Result(s) Called at: 14:48:04 05/08/2018 by: Citlaly Martinez RN 1-Nfw-346244:05 Troponin-I Comments: [facility] [address] [place], [id number] TROPONIN-I < 0.015 ng/mL (Normal) Comments: TROPONIN-I EXPECTED VALUES <0.045 Negative 0.045 - 0.590 Consistent with Cardiac Damage > OR = 0.600 Critical Value Not every elevated troponin is indicative of DE. T hesevalues should be used with clinical judgement in examiningthe patient's clinical picture for diagnosis. To establisha diagnosis of DE versus myocardial injury, there must be ademonstrated rise and/ or fall in the troponin values, inaddition to ischemic symptoms, EKG changes, new regionalwall motion abnormality, and/or angiographical evidence. PLEASE NOTE: REFERENCE RANGES EDITED 11/10/1723-Mar-201889-Dzo-098833:14 Comp. Metabolic Panel Comments: PATIENT NOT FASTINGPERFORMED BY: [facility] Kljgidwvmq0050 [facility] [id number] BY: [facility] Npeahh6035 [facility] [id number] (14) ALT (SGPT) 26 [iU]/L (Normal) Range: [...] % (Abnormal) Comments: PATIENT NOT FASTINGPERFORMED BY: [employer] [place] [address] [id number] BY: [employer]70 [facility] [id number] 4:14 Range: 4.8-5.6 Comments: . Prediabetes: 5.7 - 6.4 Diabetes: >6.4 Glycemic control for adults with diabetes: <7.0 65-Kpu-343861:14 NMR LipoProfile Comments: PATIENT NOT FASTINGPERFORMED BY: [employer] [id number] BY: [employer]6370 [facility] [id number] Inf ormation: NURSE DRAW LP-IR Score 52 (Abnormal) Comments: INSULIN RESISTANCE MARKER <--Insulin Sensitive Insulin Resistant--> Percentile in Reference PopulationInsulin Resistance ScoreLP-IR Score Low 25th 50th 75th High <27 27 45 63 >63LP-IR Score is inaccurate if patient is non-fasting. .The LP-IR score is a laboratory developed i [facility] that has beenassociated with insulin resistance and [...] 1600 - 2000 Very High > 2000 84-Upg-484289:14 MAGNESIUM (38545) Comments: PATIENT NOT FASTINGPERFORMED BY: [place] [address] [facility] [id number] BY: [facility]6370 [facility] [id number] Magnesium 1.7 mg/dL (Normal) Range: 1.6-2.3 36-Arc-305653:14 CBC, PLATELETS & MANUAL Comments: PATIENT NOT FASTINGPERFORMED BY: [facility] [id number] BY: [facility]6370 [facility] [id number] DIFF (90294) Hematology Comments: Note: (Normal) Comments: Verified by [...] 4.14-5.80 WBC 6.2 {x10E3/uL} (Normal) Range: 3.4-10.8 88-Jxk-61280:00 MAGNESIUM (62239) Comments: recheck in 2 weeks; PATIENT NOT FASTINGPERFORMED BY: CB [facility] Dbfzpd4627 [facility] [place] [id number] Information: NURSE DRAW Magnesium 1.5 mg/dL (Abnormal) Range: 1.6-2.3 30-Bkf-822176:39 LIPOPROTEIN, BLD, BY NMR Comments: PATIENT WAS FASTINGPERFORMED BY: [facility] Ofjzfizmjj8069 [facility] [id number] Information: NURSE DRAW (60831) LP-IR Score 43 (Normal) Comments: INSULIN RESISTANCE MARKER <--Insulin Sensitive Insulin Resistant--> Percentile in Reference PopulationInsulin Resistance ScoreLP-IR Score Low 25th 50th 75th High <27 27 45 63 >63LP-IR Score is inaccurate if patient is non-fasting. .The LP-IR score is a laboratory developed i [facility] that has beenassociated with insulin resistance and [...] were developed and their performance characteristicsdetermined by [employer]. These assays have not been cleared by [...] 1600 - 2000 Very High > 2000 25-Vjc-18684:14 HGB A1C (10692) Comments: PATIENT NOT FASTINGPERFORMED BY: [employer]6370 [facility] [id number] Hemoglobin A1c 8.9 % (Abnormal) Range: 4.8-5.6 Comments: . Pre-diabetes: 5.7 - 6.4 Diabetes: >6.4 Glycemic control for adults with diabetes: <7.0 48-Hsc-19219:14 CBC, Platelets & Auto Diff Comments: PATIENT NOT FASTINGPERFORMED BY: [employer]6370 [facility] [id number] Information: NURSE DRAW (38458) Immature Grans (Abs) 0.0 {x10E3/uL} (Normal) Range: [...] 7.4 {x10E3/uL} (Normal) Range: 3.4-10.8 :14 Magnesium (82518) Comments: PATIENT NOT FASTINGPERFORMED BY: [facility]CoKenn[facility] [place] 1028770 [facility] [id number] Magnesium 1.5 mg/dL (Abnormal) Range: 1.6-2.3 :14 Metabolic Panel, Comprehensive Comments: PATIENT NOT FASTINGPERFORMED BY: [facility]CoKenn[facility] [place] 1028770 [facility] [id number] (56438) ALT (SGPT) 19 [iU]/L (Normal) Range: 0-44 [...] Planned Observations CBC, Platelets & Auto Diff (67558)Indication: Thrombocytopenia On: :42 Request Comments: draw in a non clumping citrate tubeplease do a manual peripheral smear draw 06-24-18 Platelet 88279 (citrate, nonclumping tube)Indication: Thrombocytopenia On: :43 Request Comments: PT IS HOMEBOUND PLEASE DRAW 06-08-18 Metabolic Panel, Basic (31563)Indication: Diabetes mellitus, type 2 On: :31 Request CBC with auto diff (26346)Indication: Pneumonia, bacterial On: 71-Gwj-100961:31 Request Methymalonic Acid, Serum (34416)Indication: Thrombocytopenia On: :08 Request Comments: check in 4 weeks week of 04-20-18 Vitamin B-12 (cyanocobalamin) (72348)Indication: Thrombocytopenia On: :07 Request Comments: check in 4 weeks (week of 04-20-18) Platelet Count, Citrated (30491)Indication: Thrombocytopenia On: 36-Pnk-582294:07 Request Comments: draw in citrate tube check in 4 weeks (week of 04-20-18) Metabolic Panel, Comprehensive (13994)Indication: Diabetes mellitus, type 2 On: 8-Clo-589603:33 Request Comments: re check in 3 months LIPOPROTEIN, BLD, BY NMR (30338)Indication: Hyperlipidemia On: 8-Iyl-032095:32 Request Comments: re check in 3 months HGB A1C (02979)Indication: Diabetes mellitus, type 2 On: 4-Fmq-911286:32 Request Comments: re check in 3 months MICROALBUMIN: CREATININE RATIO (35537) AND (54590)Indication: Diabetes mellitus, type 2 On: 55-Dmv-890452:09 Request Planned Encounters Medical; MDVILatricia Home Visit Problem - On: 06-Aug-2018 15:00 [facility] Flory Pantoja MD, MD, Dana M Planned Procedures Flu Vaccine (Quadrivalent) On: 23-Mar-2018 Intent 16603Vt: Flory Pantoja MD Comments: Lot #:[id number] date: 9-42-58Lvagqd given:0.5mlRoute: IMSite given:L DltdGiven by: Dr. Pantoja [...] Allergic rhinitis, Constipation [facility] Payers MedicareFRABRAZO ARROWHEAD CAMPUSLISET HEATH; a guarantor
--- OUTSIDE RECORDS SUMMARY | 2018-09-20 08:24 | XMS RPT_ITS | Continuity of Care Document ---
:1940 Author Organization [facility] Address [address] [place] [address] Phone Care Team Providers Name Role Phone [...] : 25-May-2018 Active Comments:05-25-[address] [facility] d/c AzaTHIOprine 50 MG Oral Tablet 2 [...] M Start : 28-May-2018 Active Comments:DX: E11.9NPI: [id number] [facility] Lisinopril 10 MG Oral Tablet [...] : 25-May-2018 Active Comments:05-25-18 dose changed per [facility] Mometasone Furoate 50 MCG/ACT Nasal Suspension 2 (two) Cressona Cressona each nostril qd for 0 days Quantity: [...] Dana M Start : 25-May-2018 Active Comments:per [facility] [address] Sertraline HCl 50 MG Oral Tablet [...] (K85.90, 577.0) Comments: seen on [facility] 06[facility]17 show distended gall bladder but us okay and felt related to januvia and azathioprine. at this point think related to januvia so restart the aza. will see if rreturn. 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 Inpatient E AND M: 55193 Init Hosp L3 05/08/18 1648 &#6 0;Electronically [...] follows with Dr. Pressley as well as supervisor malted milk at [employer] which he was referred to [...] 5. Type 2 diabetes mellitus with diabetic wjsmbpasih-Caht-Tsikz before meals at bedtime. Continue home Levemi [...] Physical Exam Result: Comments: See Note; NOTES: [facility] Medical Records Department [address] [place] [address] History and Physical 05/08/18 1603 MR#: [id number] Acct: [id number] Name: Saul HEATH LUIS [place] Rep #: [id number] : 1940 78 From: Anushka AMBIRZ PCP: Flory Pantoja MD Status: REG ER [...] s with Dr. Pressley as well as supervisor malted milk at [employer] which he was referred to [...] 5. Type 2 diabetes mellitus with diabetic bycissqxfg-Wdis-Oadkj before meals at bedtime. Continue home Levemir [...] and Lateral Result: Comments: See Note; NOTES: [facility] Imaging Services [address] [place] [address] Chest PA and Lateral MR#: [id number] Acct: [id number] Name: Ronni Heath Latricia Rep #: [id number] : 1940 M 78 From: Saad Berry MD PCP: Flory Pantoja MD Status: REG ER Study: Chest PA and Lateral Date of Exam: 05/08/18 Exam# [id number] Ordering Dr: Rodolfo Stanford MD STUDY: X-RAY [...] Saad Berry MD at 14:48 EST Tel [phone], Service supp ort , CC: Flory Pantoja MD; Rodolfo Stanford MD Perinatal Technician: Signed Social History Name Dates Details Current Work/Study Status Comments: 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 use to live in [place] Status: Active Living Situation Comments: live with Status: Active Non Drinker/No Alcohol Use Status: Active Non Smoker/No Tobacco Use Comments: smoked 3 ppd from Status: Active Vital Signs Date Test Result Details 82-Xnk-333464:44 Pulse 67 /min Comments: Pattern: Regular Respiration Rate 18 /min O2 SAT 95 % Comments: 10L O2 BP Systolic 100 mm[Hg] Comments: Patient Position: Sitting BP Diastolic 65 mm[Hg] Comments: Patient Position: Sitting 36-Qxj-756451:41 Pulse 80 /min Comments: Pattern: Regular Respiration Rate 24 /min O2 SAT 98 % Comments: 4L O2 BP Systolic 118 mm[Hg] Comments: Patient Position: Sitting BP Diastolic 70 mm[Hg] Comments: Patient Position: Sitting 27-Ooz-169595:25 Pulse 98 /min Comments: Pattern: Regular Respiration [...] Diastolic 76 mm[Hg] Comments: Patient Position: Sitting 7-Sum-328597:20 Comments: sitting at rest with PO when [...] Platelet Count Comments: BELEN CITRATE NON-CLUMPING TUBE [facility] [address] [facility] [place], [place], [address](144) PLT 67 K/mm3 (Abnormal) Range: 150-450 :00 CBC W/Diff, Automated Comments: [facility] [address] [facility] [place], [address] Absolute Lymph 0.86 {X10_3/ul} (Normal) Range: 0.83-4.51 [...] 4.6-6.2 WBC 11.7 K/mm3 (Abnormal) Range: 4.4-11.0 5-Lfz-966231:00 Comprehensive Metabolic Profil Comments: [facility] [address] [place], [place], [phone] GAP 8 (Normal) Range: 5-15 CO2 30.0 [...] A.D.A. criteria.Please note revised GLUCOSE reference range hethcinye97/02/2018. 7-Bpx-984492:00 Hemoglobin A1c Comments: [facility] [address] [place], [address] HGB A1C 9.7 % (Abnormal) Range: 4.2-6.3 9-Btl-210138:00 Magnesium Comments: [facility] [address] [place], [address] MG 2.1 mg/dL (Normal) Range: 1.6-2.6 2-Ybh-504948:00 Methylmalonic Acid Bld Comments: [facility] (refer to report for specific site)refer to report for address and phone number METHYLM Comments: TEST RESULT LIMITSMethylmalonic Acid, SerumMethylmalonic Acid, Serum 187 nmol/L 0 - 378Disclaimer:This test was developed and its performance characteristicsde 568862 (Normal) termined by [facility]. It has not been cleared or approvedby the Food and Drug Administration. TESTING PERFORMED AT [facility]. ORIGINAL REPORT ON FI SHELLY IN LAB CONTAINS ADDITIONAL TEST SITE INFORMATION. 3-Ahj-069659:00 NMR Lipoprofile Comments: [facility] (refer to report [...] SITE INFORMATION. 3 Vitamin B12 1730 Comments: [facility] [address] [place], [address] - pg/mL Range: 211-911 D (Abnormal e ) c - 2 0 1 8 1 2 : 0 0 5-Roe-962707:05 Basic Metabolic Profile (BMP) Comments: [facility] [address] [place], [address] GAP 8 (Normal) Range: 5-15 CO2 29.0 [...] A.D.A. criteria.Please note revised GLUCOSE reference range cxvibpeth75/02/2018. 4-Juo-589426:05 CBC W/Diff, Automated Comments: [facility] [address] [place], [place], [phone] Absolute Lymph 0.74 {X10_3/ul} (Abnormal) Range: 0.83-4.51 [...] 4.6-6.2 WBC 9.4 K/mm3 (Normal) Range: 4.4-11.0 7-Fva-866238:05 Lactic Acid Comments: Yes/No query for Sepsis Lactate Rule [facility] [address] [place], [phone] LACTIC ACID 2.2 mmol/L (Abnormal) Range: 0.4-2.0 Comments: Critical Result(s) Called at: 14:48:04 05/08/2018 by: Citlaly Martinez RN 9-Lnv-433190:05 Troponin-I Comments: [facility] [address] [place], [phone] TROPONIN-I < 0.015 ng/mL (Normal) Comments: TROPONIN-I EXPECTED VALUES <0.045 Negative 0.045 - 0.590 Consistent with Cardiac Damage > OR = 0.600 Critical Value Not every elevated troponin is indicative of PA. T hesevalues should be used with clinical judgement in examiningthe patient's clinical picture for diagnosis. To establisha diagnosis of PA versus myocardial injury, there must be ademonstrated rise and/ or fall in the troponin values, inaddition to ischemic symptoms, EKG changes, new regionalwall motion abnormality, and/or angiographical evidence. PLEASE NOTE: REFERENCE RANGES EDITED 11/10/1723-Mar-201876-Lsh-148662:14 Comp. Metabolic Panel Comments: PATIENT NOT FASTINGPERFORMED BY: [facility] Nlhajlsosu8584 [facility] [id number] BY: [facility] Rbbmgs040[address] [facility] [id number] (14) ALT (SGPT) 26 [iU]/L (Normal) Range: [...] % (Abnormal) Comments: PATIENT NOT FASTINGPERFORMED BY: [employer] [place] [address] [id number] BY: [employer] [facility] [id number] 4:14 Range: 4.8-5.6 Comments: . Prediabetes: 5.7 - 6.4 Diabetes: >6.4 Glycemic control for adults with diabetes: <7.0 41-Dof-879012:14 NMR LipoProfile Comments: PATIENT NOT FASTINGPERFORMED BY: [employer]7 [facility] [id number] BY: [facility] [facility] [id number] Inf ormation: NURSE DRAW LP-IR Score 52 [...] 1600 - 2000 Very High > 2000 22-Lok-720731:14 MAGNESIUM (94183) Comments: PATIENT NOT FASTINGPERFORMED BY: [place] [address]17[address] [facility] [id number] BY: [facility] [facility] [id number] Magnesium 1.7 mg/dL (Normal) Range: 1.6-2.3 48-Wah-828712:14 CBC, PLATELETS & MANUAL Comments: PATIENT NOT FASTINGPERFORMED BY: [facility] [id number] BY: [facility] [facility] [id number] DIFF (68654) Hematology Comments: Note: (Normal) Comments: Verified by [...] 4.14-5.80 WBC 6.2 {x10E3/uL} (Normal) Range: 3.4-10.8 76-Ahf-11883:00 MAGNESIUM (21637) Comments: recheck in 2 weeks; PATIENT NOT FASTINGPERFORMED BY: CB [facility] Pcubfz2328 [facility] [place] [id number] Information: NURSE DRAW Magnesium 1.5 mg/dL (Abnormal) Range: 1.6-2.3 05-Rii-744469:39 LIPOPROTEIN, BLD, BY NMR Comments: PATIENT WAS FASTINGPERFORMED BY: [facility] Ajrelqyjfs0721 [facility] [id number] Information: NURSE DRAW (78670) LP-IR Score 43 (Normal) Comments: INSULIN RESISTANCE [...] were developed and their performance characteristicsdetermined by [employer]. These assays have not been cleared by [...] 1600 - 2000 Very High > 2000 79-Bcf-38160:14 HGB A1C (24860) Comments: PATIENT NOT FASTINGPERFORMED BY: [facility]370 [facility] [id number] Hemoglobin A1c 8.9 % (Abnormal) Range: 4.8-5.6 Comments: . Pre-diabetes: 5.7 - 6.4 Diabetes: >6.4 Glycemic control for adults with diabetes: <7.0 48-Gxw-24090:14 CBC, Platelets & Auto Diff Comments: PATIENT NOT FASTINGPERFORMED BY: [facility]er[address] [facility] [id number] Information: NURSE DRAW (84961) Immature Grans (Abs) 0.0 {x10E3/uL} (Normal) Range: [...] 7.4 {x10E3/uL} (Normal) Range: 3.4-10.8 :14 Magnesium (07667) Comments: PATIENT NOT FASTINGPERFORMED BY: LabCoRachel [place] [address] [facility] [id number] Magnesium 1.5 mg/dL (Abnormal) Range: 1.6-2.3 :14 Metabolic Panel, Comprehensive Comments: PATIENT NOT FASTINGPERFORMED BY: LabCo[facility] [place] [address] [facility] [id number] (48124) ALT (SGPT) 19 [iU]/L (Normal) Range: 0-44 [...] of Care Name Dates Details Planned Observations Platelet 14277 (citrate, nonclumping tube)Indication: Thrombocytopenia On: 02-Jun-20189:43 Request Comments: PT IS HOMEBOUND PLEASE DRAW 06-08-18 Metabolic Panel, Basic (82376)Indication: Diabetes mellitus, type 2 On: 31-Fvt-887401:31 Request CBC with auto diff (98233)Indication: Pneumonia, bacterial On: 47-Jzl-726192:31 Request Methymalonic Acid, Serum (17804)Indication: Thrombocytopenia On: :08 Request Comments: check in 4 weeks week of 04-20-18 Vitamin B-12 (cyanocobalamin) (79706)Indication: Thrombocytopenia On: :07 Request Comments: check in 4 weeks (week of 04-20-18) Platelet Count, Citrated (22379)Indication: Thrombocytopenia On: :07 Request Comments: draw in citrate tube check in 4 weeks (week of 04-20-18) Metabolic Panel, Comprehensive (08128)Indication: Diabetes mellitus, type 2 On: 0-Akn-313208:33 Request Comments: re check in 3 months LIPOPROTEIN, BLD, BY NMR (16861)Indication: Hyperlipidemia On: 1-Kgv-571627:32 Request Comments: re check in 3 months HGB A1C (04225)Indication: Diabetes mellitus, type 2 On: 8-Vmr-343659:32 Request Comments: re check in 3 months MICROALBUMIN: CREATININE RATIO (77813) AND (57289)Indication: Diabetes mellitus, type 2 On: 42-Znj-836881:09 Request Planned Encounters Medical; [facility] Problem - On: 06-Aug-2018 15:00 [facility] Flory Pantoja MD, MD, Dana M Planned Procedures Flu Vaccine (Quadrivalent) On: 23-Mar-2018 Intent [id number]: Flory Pantoja MD Comments: Lot #:[id number] date: 9-53-53Alxudo given:0.5mlRoute: IMSite given:L DltdGiven by: Dr. Pantoja VIS and ABN signed [employer] Flory Pantoja MD Encounters Lab Order On: 02-Jun-2018 9:42 Encounter Diagnosis: [...]
--- OUTSIDE RECORDS SUMMARY | 2018-09-20 08:24 | XMS RPT_ITS | Continuity of Care Document ---
:1940 Author Organization [facility] Address [address] [place] [address] Phone Care Team Providers Name Role Phone [...] Dr. Ramses BLANCO see him in the spring. back on the AZA since having pancre atitis felt more related to Januvia. was not able to do the 6mwt and hopig can do in - 18echo - good EF Obrych first did biosy and [...] Start : 25-May-2018 Active Comments:05-25-18 dose per [facility] d/c AzaTHIOprine 50 MG Oral Tablet 2 (two) Tablet qd for 0 days Quantity: 60 {Tablet} Refills: 0 Ordered:04-May-2018 Flory Pantoja MD, MD, Dana M Start : 04-May-2018 Active Bisacodyl 10 MG Rectal Suppository 1 (one) Suppository Suppository rectally qd for 0 days Quantity: 30 {Suppository} Refills: 0 Ordered:05-Aug-2017 Flory Pantoja MD, MD, Dana M Start : 04-Aug-2017 Active Cefadroxil 1 GM Oral Tablet 1 (one) Tablet bid for 10 days for 10 days Refills: 0 Ordered:25-May-2018 Flory Pantoja MD, MD, [...] (3) MG/3ML Inhalation Solution 1 (one) Ampule q 6 hours prn for 0 days Quantity: 60 {Ampule} Refills: 0 Ordered:25-May-2018 Flory Pantoja MD, MD, Dana M Start : 25-May-2018 Active Levemir FlexTouch 100 UNIT/ML Subcutaneous Solution Pen-injector 24 Unit qhs for 30 days Quantity: 15 {Cartridge} Refills: 5 Ordered:05-Jan-2018 Flroy Pantoja MD, MD, Dana M Start : 05-Jan-2018 Active Comments:DX: E11.9NPI: [id number] Lisinopril 10 MG Oral Tablet 1 (one) [...] : 25-May-2018 Active Comments:05-25-18 dose changed per [facility] Mometasone Furoate 50 MCG/ACT Nasal Suspension 2 (two) [place] each nostril qd for 0 days Quantity: 1 {Box} Refills: 0 Ordered:05-Aug-2017 Flory Pantoja MD, MD, Dana M Start : 04-Aug-2017 Active Mucinex 600 MG Oral Tablet Extended Release 12 Hour 2 (two) Tablet bid for 0 days Quantity: 120 {Tablet} Refills: 0 Ordered:25-May-2018 Flory Pantoja MD, [...] 20 MG Oral Tablet 1 (one) Tablet bid for 0 days Quantity: 60 {Tablet} Refills: 0 Ordered:25-May-2018 Flory Pantoja MD, MD, Dana M Start : 25-May-2018 Active Comments:per [facility] [address] Sertraline HCl 50 MG Oral [...] (K85.90, 577.0) Comments: seen on [facility] 06-27[facility]17 show distended gall bladder [...] Physical Exam Result: Comments: See Note; NOTES: [facility] Medical Records Department [address] [place] [address] History and Physical 05/08/18 1603 MR#: [id number] Acct: [id number] Name: Saul HEATH Rep #: [id number] : 1940 78 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 Inpatient E AND M: 11742 Init Hosp L3 05/08/18 1648 &#6 0;Electronically [...] follows with Dr. 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 Type 2 diabetes mellitus with diabetic fvbnaaccae-Hhgi-Uubpu before meals at bedtime. Continue home Levemi [...] Physical Exam Result: Comments: See Note; NOTES: [facility] Medical Records Department [address] [place] [address] History and Physical 05/08/18 1603 MR#: [id number] Acct: [id number] Name: Saul HEATH Latricia Rep #: [id number] : 1940 78 From: Anushka AMBRIZ PCP: [...] s with Dr. 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 Type 2 diabetes mellitus with diabetic cpqqterisa-Vwti-Umftb before meals at bedtime. Continue home Levemir [...] and Lateral Result: Comments: See Note; NOTES: [facility] Imaging Services [address] [place] [address] Chest PA and Lateral MR#: [id number] Acct: [id number] Name: Ronni Heath Rep #: [id number] : 1940 M 78 From: Saad Berry MD PCP: Flory Pantoja MD Status: REG ER Study: Chest PA and Lateral Date of Exam: 05/08/18 Exam# [id number] Ordering Dr: Rodolfo Stanford MD STUDY: X-RAY [...] Saad Berry MD at 14:48 EST Tel [phone], Service supp ort , CC: Flory Pantoja MD; Rodolfo Stanford MD Cube Cutter: Signed Social History Name Dates Details Current Work/Study Status Comments: 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 use to live in [place] Status: Active Living Situation Comments: live with Status: Active Non Drinker/No Alcohol Use Status: Active Non Smoker/No Tobacco Use Comments: smoked 3 ppd from Status: Active Vital Signs Date Test Result Details :41 Pulse 80 /min Comments: Pattern: Regular [...] Diastolic 76 mm[Hg] Comments: Patient Position: Sitting 6-Owy-383099:20 Comments: sitting at rest with PO when walking short distance drops down. Temperature 98.5 f Comments: Method: Oral Pulse 98 /min Comments: Pattern: Regular Respiration Rate 22 /min O2 SAT 97 % Comments: Room air BP Systolic 112 mm[Hg] Comments: Patient Position: Sitting BP Diastolic 68 mm[Hg] Comments: Patient Position: Sitting Results Date Description Value Details 6-Yol-803931:05 Basic Metabolic Profile (BMP) Comments: [facility] [address] [place], [place], [id number] GAP 8 (Normal) Range: 5-15 CO2 29.0 [...] A.D.A. criteria.Please note revised GLUCOSE reference range kzjdxtebr64/02/2018. 6-Vlf-453589:05 CBC W/Diff, Automated Comments: [facility] [address] [place], [place], [id number] Absolute Lymph 0.74 {X10_3/ul} (Abnormal) Range: 0.83-4.51 [...] 4.6-6.2 WBC 9.4 K/mm3 (Normal) Range: 4.4-11.0 6-Ghx-324291:05 Lactic Acid Comments: Yes/No query for Sepsis Lactate Rule [facility] [address] [place], [address] LACTIC ACID 2.2 mmol/L (Abnormal) Range: 0.4-2.0 Comments: Critical Result(s) Called at: 14:48:04 05/08/2018 by: Citlaly Martinez RN 3-Bzv-402851:05 Troponin-I Comments: [facility] [address] [facility] [place], [address] TROPONIN-I < 0.015 ng/mL (Normal) Comments: TROPONIN-I EXPECTED VALUES <0.045 Negative 0.045 - 0.590 Consistent with Cardiac Damage > OR = 0.600 Critical Value Not every elevated troponin is indicative of NC. T hesevalues should be used with clinical judgement in examiningthe patient's clinical picture for diagnosis. To establisha diagnosis of NC versus myocardial injury, there must be ademonstrated rise and/ or fall in the troponin values, inaddition to ischemic symptoms, EKG changes, new regionalwall motion abnormality, and/or angiographical evidence. PLEASE NOTE: REFERENCE RANGES EDITED 11/10/1723-Mar-201836-Xxb-915705:14 Comp. Metabolic Panel Comments: PATIENT NOT FASTINGPERFORMED BY: BN [facility] Ndnnmxlwkv[address] [facility] [id number] BY: CB [facility] Loysyg0660 [facility] [id number] (14) ALT (SGPT) 26 [iU]/L (Normal) Range: [...] % (Abnormal) Comments: PATIENT NOT FASTINGPERFORMED BY: [place] [address] [facility] [id number] BY: [facility]6370 [facility] [id number] 4:14 Range: 4.8-5.6 Comments: . Prediabetes: 5.7 - 6.4 Diabetes: >6.4 Glycemic control for adults with diabetes: <7.0 16-Rsa-282574:14 NMR LipoProfile Comments: PATIENT NOT FASTINGPERFORMED BY: Glass[address] [id number] BY: GlassRobert Wood Johnson [facility] Hospital at RahwayKjhclr2711 [facility] [id number] Inf ormation: NURSE DRAW LP-IR Score 52 (Abnormal) Comments: INSULIN RESISTANCE MARKER <--Insulin Sensitive Insulin Resistant--> Percentile in Reference PopulationInsulin Resistance ScoreLP-IR Score Low 25th 50th 75th High <27 27 45 63 >63LP-IR Score is inaccurate if patient is non-fasting. .The LP-IR score is a laboratory developed i [facility] that has beenassociated with insulin resistance and [...] were developed and their performance characteristicsdetermined by [employer]. These assays have not been cleared by [...] 1600 - 2000 Very High > 2000 65-Pda-894742:14 MAGNESIUM (59277) Comments: PATIENT NOT FASTINGPERFORMED BY: IPLocks[address] [place] [address] [id number] BY: Hylete70 [facility] [id number] Magnesium 1.7 mg/dL (Normal) Range: 1.6-2.3 99-Mbs-436744:14 CBC, PLATELETS & MANUAL Comments: PATIENT NOT FASTINGPERFORMED BY: Newsgrape[address] [id number] BY: [employer] [facility] [id number] DIFF (99225) Hematology Comments: Note: (Normal) Comments: Verified by [...] 4.14-5.80 WBC 6.2 {x10E3/uL} (Normal) Range: 3.4-10.8 59-Qav-10716:00 MAGNESIUM (81811) Comments: recheck in 2 weeks; PATIENT NOT FASTINGPERFORMED BY: [facility] Lvqceo5941 [facility] [id number] Information: NURSE DRAW Magnesium 1.5 mg/dL (Abnormal) Range: 1.6-2.3 08-Ynv-247124:39 LIPOPROTEIN, BLD, BY NMR Comments: PATIENT WAS FASTINGPERFORMED BY: [facility] [address] [id number] Information: NURSE DRAW (97507) LP-IR Score 43 (Normal) Comments: INSULIN RESISTANCE MARKER <--Insulin Sensitive Insulin Resistant--> Percentile in Reference PopulationInsulin Resistance ScoreLP-IR Score Low 25th 50th 75th High <27 27 45 63 >63LP-IR Score is inaccurate if patient is non-fasting. .The LP-IR score is a laboratory developed i [facility] that has beenassociated with insulin resistance and [...] were developed and their performance characteristicsdetermined by [employer]. These assays have not been cleared by [...] Very High > 2000 :14 HGB A1C (05112) Comments: PATIENT NOT FASTINGPERFORMED BY: LabCoRobert Wood Johnson [facility] Hospital at RahwayJcqlnj9935 [facility] [id number] Hemoglobin A1c 8.9 % (Abnormal) Range: 4.8-5.6 Comments: . Pre-diabetes: 5.7 - 6.4 Diabetes: >6.4 Glycemic control for adults with diabetes: <7.0 :14 CBC, Platelets & Auto Diff Comments: PATIENT NOT FASTINGPERFORMED BY: Lab[facility] Bxovzj9125 [facility] [id number] Information: NURSE DRAW (31760) Immature Grans (Abs) 0.0 {x10E3/uL} (Normal) Range: [...] 7.4 {x10E3/uL} (Normal) Range: 3.4-10.8 :14 Magnesium (98329) Comments: PATIENT NOT FASTINGPERFORMED BY: LabCoRobert Wood Johnson [facility] Hospital at RahwayZuodng7965 [facility] [id number] Magnesium 1.5 mg/dL (Abnormal) Range: 1.6-2.3 :14 Metabolic Panel, Comprehensive Comments: PATIENT NOT FASTINGPERFORMED BY: LabCoRobert Wood Johnson [facility] Hospital at RahwayVtyssr3154 [facility] [id number] (05215) ALT (SGPT) 19 [iU]/L (Normal) Range: 0-44 [...] Dates Details Planned Observations Methymalonic Acid, Serum (55623)Indication: Thrombocytopenia On: 01-Xjy-506553:08 Request Comments: check in 4 weeks week of 04-20-18 Vitamin B-12 (cyanocobalamin) (76171)Indication: Thrombocytopenia On: :07 Request Comments: check in 4 weeks (week of 04-20-18) Platelet Count, Citrated (05887)Indication: Thrombocytopenia On: :07 Request Comments: draw in citrate tube check in 4 weeks (week of 04-20-18) Metabolic Panel, Comprehensive (03540)Indication: Diabetes mellitus, type 2 On: 1-Sni-562433:33 Request Comments: re check in 3 months LIPOPROTEIN, BLD, BY NMR (41199)Indication: Hyperlipidemia On: 1-Qwb-075835:32 Request Comments: re check in 3 months HGB A1C (01535)Indication: Diabetes mellitus, type 2 On: 1-Qkp-121110:32 Request Comments: re check in 3 months MICROALBUMIN: CREATININE RATIO (30009) AND (11210)Indication: Diabetes mellitus, type 2 On: 00-Wdy-430117:09 Request Planned Encounters Medical; [facility] - need to make sure pt pays [facility] fee On: 25-Jun-2018 15:00 [facility] Flory Pantoja MD, MD, Dana M Planned Procedures Flu Vaccine (Quadrivalent) On: 23-Mar-2018 Intent [id number]: Flory Pantoja MD Comments: Lot #:[id number] date: 9-55-96Dwqimt given:0.5mlRoute: IMSite given:L DltdGiven by: Dr. Kit PRIDE and ABN signed [employer] Flory Pantoja MD Encounters Phone Encounter On: 25-May-2018 16:44 Encounter Diagnosis: [...]
--- OUTSIDE RECORDS SUMMARY | 2018-09-20 08:24 | XMS RPT_ITS | Continuity of Care Document ---
:1940 Author Organization [facility] Address [address] [place] [address] Phone Care Team Providers Name Role Phone [...] MD, Dana M Start : 05-Jan-2018 Active AzaTHIOprine 50 MG Oral Tablet 2 (two) [...] M Start : 05-Jan-2018 Active Comments:DX: E11.9NPI: [id number] Lotensin 10 MG Oral Tablet 1 (one) [...] Furoate 50 MCG/ACT Nasal Suspension 2 (two) [place] each nostril qd for 0 days Quantity: [...] days Quantity: 20 {Tablet} Refills: 0 Ordered:05-Aug-2017 Kit SALDANA, Flory Wang MD, Flory Louise Start : 04-Aug-2017 End : 05-Aug-2017 Discontinued Allergies and Adverse Reactions Name Dates Details Januvia *ANTIDIABETICS* (Allergy) Status: Active Comments: pnacreatitis MetFORMIN HCl *ANTIDIABETICS* (Allergy) Status: Active Comments: diarrhea Past Medical History Name Dates Details Acute pancreatitis (K85.90, 577.0) Comments: seen [facility]17 show distended gall bladder but us okay and felt related to januvia and azathioprine. at this point think related to januvia so restart the aza. will see if rreturn. 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 use to live in [place] Status: Active Living Situation Comments: live with Status: Active Non Drinker/No Alcohol Use Status: Active Non Smoker/No Tobacco Use Comments: smoked 3 ppd from Status: Active Vital Signs Date Test Result Details 57-Non-870550:41 Pulse 80 /min Comments: Pattern: Regular Respiration Rate 24 /min O2 SAT 98 % Comments: 4L O2 BP Systolic 118 mm[Hg] Comments: Patient Position: Sitting BP Diastolic 70 mm[Hg] Comments: Patient Position: Sitting 79-Zrk-667695:25 Pulse 98 /min Comments: Pattern: Regular Respiration Rate 16 /min O2 SAT 98 % Comments: 4L O2 BP Systolic 122 mm[Hg] Comments: Patient Position: Sitting BP Diastolic 76 mm[Hg] Comments: Patient Position: Sitting Weight 245 lb 9-Jbd-547351:37 Temperature 97.9 f Comments: Method: Oral Pulse 94 /min Comments: Pattern: Regular Respiration Rate 20 /min O2 SAT 98 % Comments: Room air BP Systolic 112 mm[Hg] Comments: Patient Position: Sitting BP Diastolic 76 mm[Hg] Comments: Patient Position: Sitting 1-Qrv-601776:20 Comments: sitting at rest with PO when walking short distance drops down. Temperature 98.5 f Comments: Method: Oral Pulse 98 /min Comments: Pattern: Regular Respiration Rate 22 /min O2 SAT 97 % Comments: Room air BP Systolic 112 mm[Hg] Comments: Patient Position: Sitting BP Diastolic 68 mm[Hg] Comments: Patient Position: Sitting Results Date Description Value Details 25-Udv-795403:14 Comp. Metabolic Panel Comments: PATIENT NOT FASTINGPERFORMED BY: [employer] [address] [id number] BY: LabThe CoveteurJersey Shore University Medical CenterCaxwju4308 [facility] [id number] (14) ALT (SGPT) 26 [iU]/L (Normal) Range: [...] % (Abnormal) Comments: PATIENT NOT FASTINGPERFORMED BY: PolarLake[address] [id number] BY: LabStraith [facility] Surgery6370 [facility] [id number] 4:14 Range: 4.8-5.6 Comments: . Prediabetes: 5.7 - 6.4 Diabetes: >6.4 Glycemic control for adults with diabetes: <7.0 93-Ngh-275410:14 NMR LipoProfile Comments: PATIENT NOT FASTINGPERFORMED BY: [address] [id number] BY: [facility]6370 [facility] [id number] Inf ormation: NURSE DRAW LP-IR Score 52 (Abnormal) Comments: INSULIN RESISTANCE MARKER <--Insulin Sensitive Insulin Resistant--> Percentile in Reference PopulationInsulin Resistance ScoreLP-IR Score Low 25th 50th 75th High <27 27 45 63 >63LP-IR Score is inaccurate if patient is non-fasting. .The LP-IR score is a laboratory developed i [facility] that has beenassociated with insulin resistance and [...] were developed and their performance characteristicsdetermined by [employer]. These assays have not been cleared by [...] 1600 - 2000 Very High > 2000 08-Zqy-423176:14 MAGNESIUM (54740) Comments: PATIENT NOT FASTINGPERFORMED BY: Navmii[address] [place] [address] [id number] BY: [employer]6370 [facility] [id number] Magnesium 1.7 mg/dL (Normal) Range: 1.6-2.3 65-Bwd-879342:14 CBC, PLATELETS & MANUAL Comments: PATIENT NOT FASTINGPERFORMED BY: [employer]1447 [facility] [id number] BY: [employer]6370 [facility] [id number] DIFF (95115) Hematology Comments: Note: (Normal) Comments: Verified by [...] 4.14-5.80 WBC 6.2 {x10E3/uL} (Normal) Range: 3.4-10.8 45-Ebj-90030:00 MAGNESIUM (90564) Comments: recheck in 2 weeks; PATIENT NOT FASTINGPERFORMED BY: [facility] Dkvzob6562 [facility] [id number] Information: NURSE DRAW Magnesium 1.5 mg/dL (Abnormal) Range: 1.6-2.3 81-Vzf-552656:39 LIPOPROTEIN, BLD, BY NMR Comments: PATIENT WAS FASTINGPERFORMED BY: [facility] [address] [id number] Information: NURSE DRAW (80362) LP-IR Score 43 (Normal) Comments: INSULIN RESISTANCE MARKER <--Insulin Sensitive Insulin Resistant--> Percentile in Reference PopulationInsulin Resistance ScoreLP-IR Score Low 25th 50th 75th High <27 27 45 63 >63LP-IR Score is inaccurate if patient is non-fasting. .The LP-IR score is a laboratory developed i [facility] that has beenassociated with insulin resistance and [...] Very High > 2000 :14 HGB A1C (65021) Comments: PATIENT NOT FASTINGPERFORMED BY: LabStraith [facility] For [facility] Surgery6370 [facility] [id number] Hemoglobin A1c 8.9 % (Abnormal) Range: 4.8-5.6 Comments: . Pre-diabetes: 5.7 - 6.4 Diabetes: >6.4 Glycemic control for adults with diabetes: <7.0 :14 CBC, Platelets & Auto Diff Comments: PATIENT NOT FASTINGPERFORMED BY: LabCoJersey Shore University Medical CenterMstmbz3030 [facility] [id number] Information: NURSE DRAW (19092) Immature Grans (Abs) 0.0 {x10E3/uL} (Normal) Range: [...] 7.4 {x10E3/uL} (Normal) Range: 3.4-10.8 :14 Magnesium (38379) Comments: PATIENT NOT FASTINGPERFORMED BY: LabCoJersey Shore University Medical CenterHjnlca2999 [facility] [id number] Magnesium 1.5 mg/dL (Abnormal) Range: 1.6-2.3 :14 Metabolic Panel, Comprehensive Comments: PATIENT NOT FASTINGPERFORMED BY: LabCoJersey Shore University Medical CenterCmzcbx1911 [facility] [id number] (28091) ALT (SGPT) 19 [iU]/L (Normal) Range: 0-44 [...] Dates Details Planned Observations Methymalonic Acid, Serum (83030)Indication: Thrombocytopenia On: 90-Lny-575183:08 Request Comments: check in 4 weeks week of 04-20-18 Vitamin B-12 (cyanocobalamin) (81375)Indication: Thrombocytopenia On: 48-Xgw-092769:07 Request Comments: check in 4 weeks (week of 04-20-18) Platelet Count, Citrated (93628)Indication: Thrombocytopenia On: :07 Request Comments: draw in citrate tube check in 4 weeks (week of 04-20-18) Metabolic Panel, Comprehensive (40662)Indication: Diabetes mellitus, type 2 On: 0-Fvg-695847:33 Request Comments: re check in 3 months LIPOPROTEIN, BLD, BY NMR (98486)Indication: Hyperlipidemia On: :32 Request Comments: re check in 3 months HGB A1C (16982)Indication: Diabetes mellitus, type 2 On: 1-Ohx-480004:32 Request Comments: re check in 3 months MICROALBUMIN: CREATININE RATIO (69927) AND (68188)Indication: Diabetes mellitus, type 2 On: 68-Zln-945546:09 Request Planned Encounters Medical; [facility] Problem - need to make sure pt pays [facility] fee On: 25-Jun-2018 15:00 [facility] Flory Pantoja MD, MD, Dana M Planned Procedures Flu Vaccine (Quadrivalent) On: 23-Mar-2018 Intent [id number]: Flory Pantoja MD Comments: Lot #:[id number] date: 4-22-67Iwbxqo given:0.5mlRoute: IMSite given:L DltdGiven by: Dr. Kit PRIDE and ABN signed [employer] Flory Pantoja MD Encounters Phone Encounter On: 04-May-2018 15:38 Encounter Diagnosis: [...]
--- OUTSIDE RECORDS SUMMARY | 2018-09-20 08:24 | XMS RPT_ITS | Continuity of Care Document ---
:1940 Author Organization [facility] Address [address] [place] [address] Phone Care Team Providers Name Role Phone [...] : 25-May-2018 Active Comments:05-25-[address] [facility] d/c AzaTHIOprine 50 MG Oral Tablet [...] M Start : 05-Jan-2018 Active Comments:DX: E11.9NPI: [id number] Lisinopril 10 MG Oral Tablet 1 (one) [...] : 25-May-2018 Active Comments:05-25-18 dose changed per [facility] Mometasone Furoate 50 MCG/ACT Nasal Suspension 2 (two) [place] each nostril qd for 0 days Quantity: [...] Dana M Start : 25-May-2018 Active Comments:per [facility] [address] Sertraline HCl 50 MG Oral [...] (K85.90, 577.0) Comments: seen on [facility] scan[facility] 06-27-17 show distended gall bladder but [...] Physical Exam Result: Comments: See Note; NOTES: [facility] Medical Records Department [address] [place] [address] History and Physical 05/08/18 1603 MR#: [id number] Acct: [id number] Name: Saul HEATH Rep #: [id number] : 1940 78 From: Anushka Dickson TILE SHADER-C PCP: Flory Pantoja MD Status: REG ER [...] Hypoxic Respiratory Failure (4L NC) following w/ [employer] who presents to the [facility] ED on 05/08/18 w/ history of [...] Hypoxic Respiratory Failure (4L NC) following w/ [facility] [employer] who presents to the [facility] ED on 05/08/18 w/ history of [...] CPAP q HS. Inpatient E AND M: 02355 Init Hosp L3 05/08/18 1648 &#6 0;Electronically [...] with Dr. Pressley as well as supervisor home energy consultant at [employer] which he was referred to [...] 5. Type 2 diabetes mellitus with diabetic dxcnykpqir-Eamc-Dnqaw before meals at bedtime. Continue home Levemi [...] Physical Exam Result: Comments: See Note; NOTES: [facility] Medical Records Department [address] [place] [address] History and Physical 05/08/18 1603 MR#: [id number] Acct: [id number] Name: Saul HEATH Latricia Rep #: [id number] : 1940 78 From: Anushka AMBRIZ PCP: [...] with Dr. Pressley as well as supervisor home energy consultant at [employer] which he was referred to [...] 5. Type 2 diabetes mellitus with diabetic xtirpphsfo-Mjgt-Mgzos before meals at bedtime. Continue home Levemir [...] and Lateral Result: Comments: See Note; NOTES: 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 use to live in [place] Status: Active Living Situation Comments: live with [...] Diastolic 76 mm[Hg] Comments: Patient Position: Sitting 9-Ijx-632132:20 Comments: sitting at rest with PO when walking short distance drops down. Temperature 98.5 f Comments: Method: Oral Pulse 98 /min Comments: Pattern: Regular Respiration Rate 22 /min O2 SAT 97 % Comments: Room air BP Systolic 112 mm[Hg] Comments: Patient Position: Sitting BP Diastolic 68 mm[Hg] Comments: Patient Position: Sitting Results Date Description Value Details 3-Epq-102604:05 Basic Metabolic Profile (BMP) Comments: [facility] [address] [place], [place], [id number] GAP 8 (Normal) Range: 5-15 CO2 29.0 [...] A.D.A. criteria.Please note revised GLUCOSE reference range xyzsupwcn47/02/2018. 7-Yoi-608626:05 CBC W/Diff, Automated Comments: [facility] [address] [place], [place], [id number] Absolute Lymph 0.74 {X10_3/ul} (Abnormal) Range: 0.83-4.51 [...] 4.6-6.2 WBC 9.4 K/mm3 (Normal) Range: 4.4-11.0 1-Ixh-112598:05 Lactic Acid Comments: Yes/No query for Sepsis Lactate Rule [facility] [address] [place], [address] LACTIC ACID 2.2 mmol/L (Abnormal) Range: 0.4-2.0 Comments: Critical Result(s) Called at: 14:48:04 05/08/2018 by: Citlaly Martinez RN 1-Jiz-736440:05 Troponin-I Comments: [facility] [address] [facility] [place], [address] TROPONIN-I < 0.015 ng/mL (Normal) Comments: TROPONIN-I EXPECTED VALUES <0.045 Negative 0.045 - 0.590 Consistent with Cardiac Damage > OR = 0.600 Critical Value Not every elevated troponin is indicative of [place]. T hesevalues should be used with clinical judgement in examiningthe patient's clinical picture for diagnosis. To establisha diagnosis of [place] versus myocardial injury, there must be ademonstrated rise and/ or fall in the troponin values, inaddition to ischemic symptoms, EKG changes, new regionalwall motion abnormality, and/or angiographical evidence. PLEASE NOTE: REFERENCE RANGES EDITED 11/10/1723-Mar-201846-Xat-290442:14 Comp. Metabolic Panel Comments: PATIENT NOT FASTINGPERFORMED BY: BN [facility] Xnafzwwuxc7494 [facility] [id number] BY: CB [facility] Zhavzq2653 [facility] [id number] (14) ALT (SGPT) 26 [iU]/L (Normal) Range: [...] % (Abnormal) Comments: PATIENT NOT FASTINGPERFORMED BY: [place] Corp[place] [address] [facility] [id number] BY: [facility]6370 [facility] [id number] 4:14 Range: 4.8-5.6 Comments: . Prediabetes: 5.7 - 6.4 Diabetes: >6.4 Glycemic control for adults with diabetes: <7.0 72-Vqq-470020:14 NMR LipoProfile Comments: PATIENT NOT FASTINGPERFORMED BY: [employer] [id number] BY: [employer] CorpHealthSouth - Rehabilitation Hospital [facility] Toms RiverKsfdnc0776 [facility] [id number] Inf ormation: NURSE DRAW LP-IR Score 52 (Abnormal) Comments: INSULIN RESISTANCE MARKER <--Insulin Sensitive Insulin Resistant--> Percentile in Reference PopulationInsulin Resistance ScoreLP-IR Score Low 25th 50th 75th High <27 27 45 63 >63LP-IR Score is inaccurate if patient is non-fasting. .The LP-IR score is a laboratory developed i [facility] that has beenassociated with insulin [...] were developed and their performance characteristicsdetermined by [employer]. These assays have not been cleared by [...] 1600 - 2000 Very High > 2000 31-Til-070944:14 MAGNESIUM (82605) Comments: PATIENT NOT FASTINGPERFORMED BY: [employer] [place] [address] [id number] BY: Vicino70 [facility] [id number] Magnesium 1.7 mg/dL (Normal) Range: 1.6-2.3 42-Crq-105373:14 CBC, PLATELETS & MANUAL Comments: PATIENT NOT FASTINGPERFORMED BY: [facility] [id number] BY: [employer] [facility] [id number] DIFF (88107) Hematology Comments: Note: (Normal) Comments: Verified by [...] 4.14-5.80 WBC 6.2 {x10E3/uL} (Normal) Range: 3.4-10.8 44-Viw-04147:00 MAGNESIUM (78023) Comments: recheck in 2 weeks; PATIENT NOT FASTINGPERFORMED BY: [facility] Yoqvei0866 [facility] [id number] Information: NURSE DRAW Magnesium 1.5 mg/dL (Abnormal) Range: 1.6-2.3 00-Mse-306602:39 LIPOPROTEIN, BLD, BY NMR Comments: PATIENT WAS FASTINGPERFORMED BY: [facility] [address] [id number] Information: NURSE DRAW (22290) LP-IR Score 43 (Normal) Comments: INSULIN RESISTANCE MARKER <--Insulin Sensitive Insulin Resistant--> Percentile in Reference PopulationInsulin Resistance ScoreLP-IR Score Low 25th 50th 75th High <27 27 45 63 >63LP-IR Score is inaccurate if patient is non-fasting. .The LP-IR score is a laboratory developed i [facility] that has beenassociated with insulin [...] were developed and their performance characteristicsdetermined by [employer]. These assays have not been cleared by [...] Very High > 2000 :14 HGB A1C (16077) Comments: PATIENT NOT FASTINGPERFORMED BY: LabCoHealthSouth [facility] Toms RiverFujrcj7279 [facility] [id number] Hemoglobin A1c 8.9 % (Abnormal) Range: 4.8-5.6 Comments: . Pre-diabetes: 5.7 - 6.4 Diabetes: >6.4 Glycemic control for adults with diabetes: <7.0 :14 CBC, Platelets & Auto Diff Comments: PATIENT NOT FASTINGPERFORMED BY: [facility] Ugcpmk3719 [facility] [id number] Information: NURSE DRAW (01717) Immature Grans (Abs) 0.0 {x10E3/uL} (Normal) Range: [...] 7.4 {x10E3/uL} (Normal) Range: 3.4-10.8 :14 Magnesium (50705) Comments: PATIENT NOT FASTINGPERFORMED BY: [facility]CoHealthSouth [facility] Toms RiverOphmnd7668 [facility] [id number] Magnesium 1.5 mg/dL (Abnormal) Range: 1.6-2.3 :14 Metabolic Panel, Comprehensive Comments: PATIENT NOT FASTINGPERFORMED BY: [facility]CoHealth[facility] Toms RiverLahdro2084 [facility] [id number] (30319) ALT (SGPT) 19 [iU]/L (Normal) Range: 0-44 [...] Dates Details Planned Observations Methymalonic Acid, Serum (48452)Indication: Thrombocytopenia On: 33-Iqg-463587:08 Request Comments: check in 4 weeks week of 04-20-18 Vitamin B-12 (cyanocobalamin) (91324)Indication: Thrombocytopenia On: :07 Request Comments: check in 4 weeks (week of 04-20-18) Platelet Count, Citrated (58100)Indication: Thrombocytopenia On: :07 Request Comments: draw in citrate tube check in 4 weeks (week of 04-20-18) Metabolic Panel, Comprehensive (57411)Indication: Diabetes mellitus, type 2 On: 9-Hka-734678:33 Request Comments: re check in 3 months LIPOPROTEIN, BLD, BY NMR (48164)Indication: Hyperlipidemia On: 1-Slm-680512:32 Request Comments: re check in 3 months HGB A1C (07992)Indication: Diabetes mellitus, type 2 On: 0-Plp-510750:32 Request Comments: re check in 3 months MICROALBUMIN: CREATININE RATIO (77985) AND (62981)Indication: Diabetes mellitus, type 2 On: 43-Pvg-258226:09 Request Planned Procedures Flu Vaccine (Quadrivalent) On: 23-Mar-2018 Intent 80018Cg: Flory Pantoja MD Comments: Lot #:[id number] date: 2-88-66Cxkcrl given:0.5mlRoute: IMSite given:L DltdGiven by: Dr. Pantoja [...]
--- OUTSIDE RECORDS SUMMARY | 2018-09-20 08:25 | XMS RPT_ITS ---
:1940 Author Organization OHIP Support Name Relationship Address Phone ELLYN HEATH Unavailable [address] [place] [address] KUMAR, SHIV Unavailable Unavailable + R Unavailable Unavailable Unavailable KUMAR, ELLYN Unavailable [address] [place] [address] R Unavailable Unavailable Unavailable KUMAR, ELLYN Unavailable [address] [place] [address] R Unavailable Unavailable Unavailable KUMAR, ELLYN Unavailable [address] [place] [address] R Unavailable Unavailable Unavailable KUMAR, ELLYN Unavailable [address] [place] [address] KUMAR, SHIV Unavailable Unavailable + R Unavailable Unavailable Unavailable KUMAR, ELLYN Unavailable [address] [place] [address] KUMAR, SHIV Unavailable Unavailable + R Unavailable Unavailable Unavailable KUMAR, ELLYN Unavailable [address] [place] [address] KUMAR, SHIV Unavailable Unavailable + R Unavailable Unavailable Unavailable KUMAR, ELLYN Unavailable [address] [place] [address] KUMAR, SHIV Unavailable Unavailable + R Unavailable Unavailable Unavailable KUMAR, ELLYN Unavailable [address] [place] [address] KUMAR, SHIV Unavailable Unavailable + R Unavailable Unavailable Unavailable KUMAR, ELLYN Unavailable [address] [place] [address] KUMAR, SHIV Unavailable Unavailable + R Unavailable Unavailable Unavailable KUMAR, ELLYN Unavailable [address] [place] [address] R Unavailable Unavailable Unavailable KUMAR, ELLYN Unavailable [address] [place] [address] R Unavailable Unavailable Unavailable KUMAR, ELLYN Unavailable [address] [place] [address] R Unavailable Unavailable Unavailable KUMAR, ELLYN Unavailable [address] [place] [address] R Unavailable Unavailable Unavailable KUMAR, ELLYN Unavailable [address] [place] [address] R Unavailable Unavailable Unavailable KUMAR, ELLYN Unavailable [address] [place] [address] R Unavailable Unavailable Unavailable KUMAR, ELLYN Unavailable [address] [place] [address] R Unavailable Unavailable Unavailable KUMAR, ELLYN Unavailable [address] [place] [address] R Unavailable Unavailable Unavailable KUMAR, ELLYN Unavailable [address] [place] [address] R Unavailable Unavailable Unavailable KUMAR, ELLYN Unavailable [address] [place] [address] R Unavailable Unavailable Unavailable KUMAR, ELLYN Unavailable [address] [place] [address] R Unavailable Unavailable Unavailable KUMAR, ELLYN Unavailable [address] [place] [address] R Unavailable Unavailable Unavailable KUMAR, ELLYN Unavailable [address] [place] [address] R Unavailable Unavailable Unavailable KUMAR, ELLYN Unavailable [address] [place] [address] R Unavailable Unavailable Unavailable KUMAR, ELLYN Unavailable [address] [place] [address] R Unavailable Unavailable Unavailable KUMAR, ELLYN Unavailable [address] [place] [address] R Unavailable Unavailable Unavailable KUMAR, ELLYN Unavailable Unavailable + KUMAR, BENOIT Unavailable Unavailable Unavailable KUMAR, SHERWIN Unavailable Unavailable Unavailable KUMAR, ELLYN Unavailable Unavailable + KUMAR, BENOIT Unavailable Unavailable Unavailable KUMAR, SHERWIN Unavailable Unavailable Unavailable KUMAR, ELLYN Unavailable Unavailable + KUMAR, BENOIT Unavailable Unavailable Unavailable KUMAR, SHERWIN Unavailable Unavailable Unavailable KUMAR, ELLYN Unavailable Unavailable + KUMAR, BENOIT Unavailable Unavailable Unavailable KUMAR, SHERWIN Unavailable Unavailable Unavailable KUMAR, ELLYN Unavailable Unavailable + KUMAR, BENOIT Unavailable Unavailable Unavailable KUMAR, SHERWIN Unavailable Unavailable Unavailable KUMAR, ELLYN Unavailable Unavailable + KUMAR, BENOIT Unavailable Unavailable Unavailable KUMAR, SHERWIN Unavailable Unavailable Unavailable Care Team Providers Name Role Phone LAVERN RAMIREZ Attending Unavailable TALAMPAS, JAYLON Referring Unavailable CLARICE JR.VIRGINIE Referring Unavailable CLARICE JR.VIRGINIE Attending Unavailable CLARICE ETIENNE.VIRGINIE Referring Unavailable LAVERN RAMIREZ Attending Unavailable LAVERN RAMIREZ Referring Unavailable CLARICE ETIENNE.VIRGINIE Attending Unavailable TALAMPAS, JAYLON Referring Unavailable LAVERN RAMIREZ Attending Unavailable LAVERN RAMIREZ Referring Unavailable Flory Pantoja MD Attending Unavailable Flory Pantoja MD Referring Unavailable Flory Pantoja MD Consulting Unavailable Flory Pantoja Attending Unavailable Flory Pantoja Referring Unavailable Kit, Flory Primary Care Unavailable Flory Pantoja Attending Unavailable Kit, Flory Primary Care Unavailable BoneZia leunga Referring Unavailable Roland Pressley Consulting Unavailable Flory Pantoja Attending Unavailable Bonemadhu, Flory Referring Unavailable Bonemadhu, Flory Primary Care Unavailable Flory Pantoja Attending Unavailable Bonemadhu, Flory Primary Care Unavailable Bonezzi, Flory Primary Care Unavailable Sibilia, Roland Referring Unavailable Sementi, Gina Admitting Unavailable Nixon Kemar D.O. Consulting Unavailable Paintsil, Scobey Attending Unavailable Sementi, Gina Admitting Unavailable Sementi, Gina Attending Unavailable Sibilia, Roland Referring Unavailable Bonezzi, Flory Primary Care Unavailable Sementi, Gina Consulting Unavailable Sementi, Gina Admitting Unavailable Jada Diop Attending Unavailable Sibilia, Roland Referring Unavailable Bonezzi, Flory Primary Care Unavailable Sementi, Gina Consulting Unavailable Sementi, Gina Admitting Unavailable Nixon Brown, D.O. Attending Unavailable Sibilia, Roland Referring Unavailable Bonezzi, Flory Primary Care Unavailable Nixon Kemar D.O. Consulting Unavailable Paintsil, Scobey Consulting Unavailable Sementi, Gina Admitting Unavailable Nixon Kemar D.O. Attending Unavailable Sibilia, Roland Referring Unavailable Bonezzi, Flory Primary Care Unavailable Nixon Reinoso D.O. Consulting Unavailable Paintsil, Scobey Consulting Unavailable Sementi, Gina Admitting Unavailable Paintsil, Scobey Attending Unavailable Sibilia, Roland Referring Unavailable Bonezzi, Flory Primary Care Unavailable Nixon Reinoso D.O. Consulting Unavailable Paintsil, Scobey Consulting Unavailable Sementi, Gina Admitting Unavailable Nixon Kemar D.O. Attending Unavailable Sibilia, Roland Referring Unavailable Bonezzi, Flory Primary Care Unavailable Nixon Reinoso D.O. Consulting Unavailable Paintsil, Scobey Consulting Unavailable Sementi, Gina Admitting Unavailable Paintsil, Scobey Attending Unavailable Sibilia, Roland Referring Unavailable Bonezzi, Flory Primary Care Unavailable Nixon Reinoso D.O. Consulting Unavailable Paintsil, Scobey Consulting Unavailable Sementi, Gina Admitting Unavailable Paintsil, Scobey Attending Unavailable Sibilia, Roland Referring Unavailable Bonezzi, Flory Primary Care Unavailable Nixon Reinoso D.O. Consulting Unavailable Paintsil, Scobey Consulting Unavailable Sementi, Gina Admitting Unavailable Paintsil, Scobey Attending Unavailable Sibilia, Roland Referring Unavailable Bonezzi, Flory Primary Care Unavailable Nixon Reinoso D.O. Consulting Unavailable Paintsil, Scobey Consulting Unavailable Bonezzi, Flory Primary Care Unavailable Jada Diop Admitting Unavailable Sibilia, Roland Consulting Unavailable Tereletsky, Steven Attending Unavailable Bonezzi, Flory Primary Care Unavailable White, Jada Attending Unavailable White, Jada Admitting Unavailable Jopperi, Marty Attending Unavailable Bonezzi, Flory Primary Care Unavailable Jopperi, Marty Consulting Unavailable White, Jada Admitting Unavailable Jopperi, Marty Attending Unavailable Bonezzi, Flory Primary Care Unavailable Jopperi, Marty Consulting Unavailable White, Jada Admitting Unavailable Tereletsky, Steven Attending Unavailable Bonezzi, Flory Primary Care Unavailable Sibilia, Roland Consulting Unavailable Tereletsky, Steven Consulting Unavailable White, Jada Admitting Unavailable Tereletsky, Steven Attending Unavailable Bonezzi, Flory Primary Care Unavailable Sibilia, Roland Consulting Unavailable Tereletsky, Steven Consulting Unavailable White, Jada Admitting Unavailable Tereletsky, Steven Attending Unavailable Bonezzi, Flory Primary Care Unavailable Sibilia, Roland Consulting Unavailable Tereletsky, Steven Consulting Unavailable White, Jada Admitting Unavailable Tereletsky, Steven Attending Unavailable Bonezzi, Flory Primary Care Unavailable Sibilia, Roland Consulting Unavailable Tereletsky, Steven Consulting Unavailable White, Jada Admitting Unavailable Tereletsky, Steven Attending Unavailable Bonezzi, Flory Primary Care Unavailable Sibilia, Roland Consulting Unavailable Tereletsky, Steven Consulting Unavailable [place], Jaylon Attending Unavailable Tereletsky, Steven Referring Unavailable Bonezzi, Flory Attending Unavailable Bonezzi, Flory Referring Unavailable Bonezzi, Flory Primary Care Unavailable Bonezzi, Flory Attending Unavailable Bonezzi, Flory Primary Care Unavailable PROBLEMS PROBLEMS DATE TYPE CONDITION / CODE ATTENDING STATUS SOURCE 07/13/2018 Unknown J84.10 - Pulmonary Bonezzi, Flory Active [place] fibrosis, Community unspecified / Hospital J84.10(ICD-10) Repository 07/02/2018 Unknown D69.6 - Bonezzi, Flory Active [place] Thrombocytopenia, Community unspecified / Hospital D69.6(ICD-10) Repository 06/29/2018 Unknown J13 - Pneumonia due Bonezzi, Flory Active [place] to Streptococcus Community pneumoniae / Hospital J13(ICD-10) Repository 06/29/2018 Unknown J96.11 - Chronic Bonezzi, Flory Active [place] respiratory failure Community with hypoxia / Hospital J96.11(ICD-10) Repository 06/29/2018 Unknown J15.9 - Unspecified Bonezzi, Flory Active [place] bacterial pneumonia Community / J15.9(ICD-10) Hospital Repository 06/29/2018 Unknown E11.9 - Type 2 Flory Pantoja Active [place] diabetes mellitus [facility] without Hospital complications / Repository E11.9(ICD-10) 05/29/2018 Unknown R06.02 - Shortness Venice, Jaylon Active [place] of breath / Community R06.02(ICD-10) Hospital Repository 05/01/2018 [facility] diagnosis arthritis with University rheumatoid factor [facility] of unspecified hand Center without organ or Repository systems involvement / M05.749(ICD-10) 05/01/2018 Ad[facility] Active [facility] diagnosis Arthritis / [place] [id number]() [facility] Repository 05/01/2018 Admitting Joint Swelling / [facility] diagnosis [id number]() [facility] Repository 05/01/2018 Admitting Hip Pain / [id number]() [facility] Active [facility] diagnosis [facility] Repository 05/01/2018 Admitting Lower Back Pain / [facility] diagnosis 320() [facility] Repository PROCEDURES PROCEDURES No Procedure Records FoundRESULTS RESULTS DISCHARGE SUMMARY Observed: 07/21/2018 Status: F Source: [place] 3:54 PM [facility] REPOSITORY [facility] Medical Records Department [address] [place] [id number] Discharge Summary 07/21/18 1202 MR#: [id number] Acct: [id number] Name: SHERWIN HEATH Rep #: [id number] : 1940 78 From: Parris Lynch MD PCP: Flory Pantoja MD Status: ADM IN Y Location: [place] [address] Discharge Date and Diagnosis - Problem List Patient Problems: Active and Suspected Problems Pyelonephritis (Acute) Sepsis (Acute) Urine retention (Suspected) Date of Admission: 07/16/18 Date of Discharge: 07/21/18 - Primary Discharge Diagnosis Active and Suspected Problems 1. Sepsis secondary to suspected complicated Serratia UTI 2. Serratia marcens bacteremia 3. Acute on chronic respiratory failure secondary to acute exacerbation of pulmonary fibrosis 4. Acute urinary retention, resolved 5. Uncontrolled Type 2 DM 6. Acute on chronic diastolic CHF - Secondary Discharge Diagnosis Chronic Problems Chronic hypoxemic respiratory failure (Chronic) Thrombocytopenia (Chronic) BPH (benign prostatic hyperplasia) (Chronic) Moderate pulmonary arterial systolic hypertension (Chronic) Morbid obesity (Chronic) Grade I diastolic dysfunction (Chronic) Moderate tricuspid regurgitation (Chronic) Obstructive sleep apnea of adult (Chronic) Pulmonary fibrosis (Chronic) Diabetic neuropathy (Chronic) Hypertension (Chronic) Gastro-esophageal reflux (Chronic) Hyperlipidemia (Chronic) Type 2 diabetes mellitus (Chronic) Hypogonadism male (Chronic) Coronary artery arteriosclerosis (Chronic) Hospital Course and Treatment Imaging Results: Clinical Impression(s) from Imaging Studies Brain CT 07/16/18 13:39 IMPRESSION: Chronic involutional changes of the brain. Electronically Signed: Saad Berry MD at 15:12 EST Tel [phone], Service support , Cervical Spine CT 07/16/18 13:40 IMPRESSION: Multilevel degenerative changes, as described above. Electronically Signed: Saad Berry MD at 15:24 EST Tel [phone], Service support , Chest X-Ray 07/16/18 14:35 IMPRESSION: Central vascular congestion and diffuse pulmonary edema with low lung volumes. Electronically Signed: Ton Daly MD at 14:53 EST Tel , Service support , Chest X-Ray 07/21/18 08:32 IMPRESSION: Stable examination. Electronically Signed: Saad Berry MD at 9:24 EST Tel [phone], Service support , 07/21/18 08:32 Chest 1 View (Portable) [RAD] [employer] Citizenship Operations: None Procedures: None Summary of Care Provided: 78 year-old male with Chronic pulmonary fibrosis, with chronic hypoxic respiratory failure on 10 L of oxygen at home, follows with Dr. Siegel, comes in with complaints of urine incontinence, generalized weakness and a 1 day history of fall. Patient was found to have increased oxygen requirements. He was admitted to PCU but was transferred to ICU for BiPAP. He was started on high dose steroids, 1g daily for acute exacerbation of pulmonary fibrosis. He was later followed with prednisone taper. He was also managed as sepsis secondary to suspected complicated Serratia UTI. Blood cultures grew Serratia marenscens, repeat blood cultures was negative. He was initially on Zosyn and later de-escalated to IV ceftriaxone. He was discharged on 7 days of cefdinir making a total of 14 days antibiotics. He was managed also on flomax. Initially had a ibanez catheter but that later discontinued with patient being able to void subsequently. His blood sugars were uncontrolled secondary to high-dose steroids. Changes were made to his Lantus. Patient was also started on Lasix for acute on chronic diastolic CHF. [facility] facility. He will follow- up with Dr. Pressley in a week. Patient Problems: Active and Suspected Problems Pyelonephritis (Acute) Sepsis (Acute) Urine retention (Suspected) Subjective: On the day of discharge, patient was feeling about the same. Had one bowel movements at the time of exam. Denies fever or chills or chest pain. Objective: Physical Exam General: Alert, Oriented x3, Cooperative, No apparent distress, obese, on 12 L of oxygen HEENT: PERRLA, EOMI, Normocephalic Oral: No Gingival or Mucosal Lesions/ Ulcerations, Dry Mucosa Neck: Supple, No Nodes, No Nuchal Rigidity, Trachea Midline Lungs: Diminished, mild use of accessory muscles of respiration Cardiovascular: Regular Rhythm, Normal S1, Normal S2, No murmurs, No rub noted, No Gallop, Tachycardic Abdomen: Bowel Sounds Present, Soft, Obese, Tender - in the suprapubic area Extremities: TRace bilateral edema, diminished Peripheral Pulses Skin: No rashes, No breakdown, - - he has a small abrasion and ecchymosis of the Left knee from recent fall Musculoskeletal: No Muscle Wasting, Arthritic Changes Neurological: Cranial nerves II-XII grossly intact, Neuro grossly intact Psych/Mental Status: Normal Affect, Appropriate - Physical Exam Vital Signs Temp Pulse Resp BP Pulse Ox 97.8 F 118 H 16 114/80 92 07/21/18 09:25 07/21/18 11:00 07/21/18 09:25 07/21/18 09:25 07/21/18 09:25 Oxygen Flow Rate (L/min) 12 Oxygen Delivery Method Nasal Cannula Weight: 108.3 kg Body Mass Index (BMI) 0.1 Intake and Output for Last 24 Hours Intake Total 1617 / 1617 3200 / 3200 400 / 400 Output Total 2325 / 2325 2099 / 2099 Balance -708 / -708 1100 / 1100 400 / 400 Microbiology Past 72 Hours 07/21/18 05:00 Gram Stain - Final Sputum, Expectorated/Coughed POC Glucose POC Glucose 365 H 193 H 234 H POC Glucose 371 H Discharge Diet: Low fat/ Low Cholesterol, 8 Cup Fluid Restriciton, 2000 mg Sodium Diet Home Medications: Medications to take at Discharge Atorvastatin Calcium [Lipitor] 10 mg PO QHS 11/09/13 Flaxseed Oil/[place] 3,6,9 [Sv Flaxseed Oil 1,300 mg Sftgl] 1 cap PO DAILY 11/09/13 Potassium Chloride [K-Dur] 20 meq PO BID 11/09/13 Tizanidine HCl [Zanaflex] 2 - 4 mg PO QHS 11/09/13 Glucosamine Sulf/Chondroitin A [Glucosamine-Chondroitin Cap] 1 each PO BID 10/27/14 Ranitidine [Zantac] 150 mg PO DAILY 06/27/17 Aspirin E.C. [Ecotrin] 81 mg PO DAILY@0800 05/08/18 Gabapentin [Neurontin] 600 mg PO TID 05/08/18 Insulin Lispro [Humalog KwikPen] 6 units SQ TID 05/08/18 Magnesium Oxide [Magnesium] 1,000 mg PO BID 05/08/18 Multivit-Min/FA/Lycopen/Lutein [Centrum Silver Men Tablet] 1 tab PO DAILY 05/08/18 Lisinopril [Zestril] 10 mg PO DAILY #30 tablet 05/15/18 Ascorbic Acid [Vitamin C] 500 mg PO DAILY@0800 07/16/18 Azathioprine 150 mg PO DAILY 07/16/18 Cyanocobalamin (Vitamin B-12) [Vitamin B-12] 50 mcg PO BID 07/16/18 Acetaminophen [Tylenol Tablet] 650 mg PO Q6H PRN PRN tablet 07/21/18 Albuterol Aerosols [Ventolin Aerosols] 2.5 mg INHALATION Q2H PRN PRN vial.neb. 07/21/18 Bisacodyl [Dulcolax] 5 mg PO DAILY PRN PRN tablet 07/21/18 Cefdinir [Omnicef [equiv]] 300 mg PO Q12H #14 capsule 07/21/18 Enoxaparin [Lovenox] 40 mg SC DAILY@1000 syringe 07/21/18 Furosemide [Lasix] 40 mg PO BIDLX #14 tablet 07/21/18 Insulin Glargine [Lantus SoloStar Pen] 28 units SC QHS pen 07/21/18 Insulin Lispro [Humalog KwikPen] See Protocol SQ ACHS insuln.pen 07/21/18 Ipratropium/Albuterol Sulfate [Duoneb] 3 ml INHALATION Q4HWA.RT ampul.neb 07/21/18 Lactobacillus Acidophilus [Acidophilus] 2 tablet PO 4X/DAY tablet 07/21/18 Loperamide [Imodium] 2 mg PO Q2H PRN PRN capsule 07/21/18 Tamsulosin HCl [Flomax] 0.8 mg PO DAILY@0830 capsule 07/21/18 predniSONE tablet See Taper PO DAILY@0800 #30 tablet 07/21/18 Following Prescrptions Were Given to Patient: Cefdinir [Omnicef [equiv]] 300 mg PO Q12H #14 capsule Furosemide [Lasix] 40 mg PO BIDLX #14 tablet predniSONE tablet See Taper PO DAILY@0800 #30 tablet Primary Care Physician: Flory Pantoja MD [Primary Care Provider] - Please follow up with your Primary Care Physician in: within 1- 2 weeks Please Follow Up With: Roland Pressley MD When: within 1 week Disposition: Retirement facility Minutes spent on discharge:: 40 Medical Necessity - Tobacco Use Smoking Status: Former smoker Tobacco Use: Non-smoker Meaningful Use Info Meaningful Use Diagnoses (Choose all that apply): CHF - CHF JOVON/ARB ordered at discharge?: Yes Documented LVEF (%): 75 Code Visit Inpatient E AND M: 78001 Disch Hosp 07/21/18 1554 <Electronically signed by Parris Lynch MD> Date Parris Lynch MD Cosigner Signature (if applicable): Date CC: Parris Lynch MD; Flory Pantoja MD Signed TRANSFER TO EXTENDED Observed: 07/21/2018 Status: F Source: [facility] 12:00 PM [facility] REPOSITORY [facility] Medical Records Department [address] [place] [address] Transfer to Extended Care MR#: [id number] Acct: [id number] Name: SHERWIN HEATH Rep #: [id number] : 1940 78 From: Parris Lynch MD PCP: Flory Pantoja MD Status: ADM IN SHERWIN HEATH (Patient) (Health Ins. Claim No.) (Day of Discharge to Facility) Certification of patient admission REQUIRED AT TIME OF ADMISSION. I CERTIFY THAT POST-HOSPITAL ECF SERVICES ARE REQUIRED TO BE GIVEN ON AN IN-PATIENT BASIS BECAUSE OF THE ABOVE NAMED PATIENT'S NEED FOR HALF-WAY CARE ON A CONTINUING BASIS FOR THE CONDITION(S) FOR WHICH HE/SHE WAS RECEIVING IN-PATIENT HOSPITAL SERVICES PRIOR TO HIS/HER TRANSFER TO THE ECF. 07/21/18 1200 <Electronically signed by Parris Lynch MD> Date Parris Lynch MD - Diet 07/16/18 17:41 Diet: Cardiac: Calorie-Controlled Food consistency:: Regular Liquid Consistency:: Regular/Thin Is pt able to select menu?: Yes How many daily calories?: 1800 calorie - Routine Orders/Code Status O2 Frequency: Continuous - 10-12L Keep PO Greater than or Equal to (%): 92 - Cpap at night 16mmHg - Wound(s) Head Wound Type: Abrasion RFA Wound Type: Abrasion - Therapies Weight Bearing: Weight bearing as tolerated Physical Therapy: Eval and Treat Occupational Therapy: Eval and Treat - Allergies/Procedures Done in Hospital Allergies/Adverse Reactions: Allergies No Known Allergies Allergy (Verified 01/17/19 12:56) Procedures: None - Type of Care/Length of Stay Estimated LOS: Convalescent Care Less Than 30 days Type of Care Needed: Skilled Rehab Potential: Fair Prognosis: Fair - Additional Orders/Day of Discharge Additional Orders: Recommend palliative care in the jail care. Day of Discharge: 07/21/18 - Dietary and Speech Recommendations Dietitian Recommendations/Changes: Rec diet change to 1800 taiwo Cardiac/PER d/t BMI and pmhx - Follow Up Care Primary Care Physician: Flory Pantoja MD [Primary Care Provider] - Please follow up with your Primary Care Physician in: within 1- 2 weeks Please Follow Up With: Roland Pressley MD When: within 1 week 07/21/18 1200 <Electronically signed by Parris Lynch MD> Date Parris Lynch MD CC: Flory Pantoja MD; Nixon Reinoso D.O. Signed BEDSIDE GLUCOSE Collected: 07/21/2018 Status: F Source: [place] 11:26 AM [facility] REPOSITORY TYPE CODE TESTS RESULT OUT OF REFERENCE UNITS RANGE LAB L501.080 70-110 mg/dL High BEDSIDE GLU 365 Result Comment: MANAGEMENT OF PATIENT CARE PER NURSING PROTOCOL Performed By: #### L501.080 #### [facility] Laboratory Point of Care [address] [facility] [place] [address] CHEST 1 VIEW Observed: 07/21/2018 Status: F Source: [place] (PORTABLE) 8:26 AM [facility] REPOSITORY [facility] Imaging Services [address] [place] [address] Chest 1 View (Portable) MR#: [id number] Acct: [id number] Name: SHERWIN HEATH Rep #: [id number] : 1940 M 78 From: Saad Berry MD PCP: Flory Pantoja MD Status: ADM IN Study: Chest 1 View (Portable) Date of Exam: 07/21/18 Exam# [id number] Ordering Dr: Roland Pressley MD STUDY: X-RAY CHEST REASON FOR EXAM: Male, 78 years old. Pulmonary fibrosis. TECHNIQUE: Single AP portable view of the chest. COMPARISON: Comparison is made with prior study dated July 16, 2018. FINDINGS: EKG electrodes are seen. Limited inspiratory effort. Findings suggest vascular congestion and CHF. There has been no change. Blunting of the left costophrenic angle. There is moderate cardiac enlargement. Normal mediastinum and torrey. Normal visualized pulmonary arteries. There is atherosclerotic calcification of the aortic arch with tortuosity. There are diffuse degenerative changes of the visualized thoracic spine. Normal visualized ribs, clavicles, and shoulders. There is no demonstrated abnormality of the visualized soft tissue structures of the upper abdomen. RAD/Chest 1 View (Portable) IMPRESSION: Stable examination. Electronically Signed: Saad Berry MD at 9:24 EST Tel [phone], Service support , CC: Flory Pantoja MD; Roland Pressley MD Fibrous Wallboard Inspector: Signed BEDSIDE GLUCOSE Collected: 07/21/2018 Status: F Source: [place] 6:48 AM [facility] REPOSITORY TYPE CODE TESTS RESULT OUT OF REFERENCE UNITS RANGE LAB L501.080 70-110 mg/dL High BEDSIDE GLU 193 Result Comment: MANAGEMENT OF PATIENT CARE PER NURSING PROTOCOL Performed By: #### L501.080 #### [place] [facility] Laboratory Point of Care [address] [place], [place] [address] Observed: 07/21/2018 Status: F Source: [place] CULTURE, SPUTUM 5:00 AM [facility] REPOSITORY Gram Stain Acceptable Specimen? Yes (<25 Epithelial cells per/lpf) Gram Stain Rare Red Blood Cells Rare Epithelial cells 1+ Gram positive cocci in chains Rare Yeast Like Organisms Resp. Culture Mixed normal respiratory mariama. No Haemophilus, Streptococcus pneumoniae, beta-hemolytic Streptococcus or Staphylococcus aureus isolated. Performed By: #### M100.0800 #### [facility] [address] [place], [address] BEDSIDE GLUCOSE Collected: 07/20/2018 Status: F Source: [place] 10:09 PM [facility] REPOSITORY TYPE CODE TESTS RESULT OUT OF REFERENCE UNITS RANGE LAB L501.080 70-110 mg/dL High BEDSIDE GLU 234 Result Comment: MANAGEMENT OF PATIENT CARE PER NURSING PROTOCOL Performed By: #### L501.080 #### [facility] [address] [place] [address] BEDSIDE GLUCOSE Collected: 07/20/2018 Status: F Source: [place] 4:12 PM [facility] REPOSITORY TYPE CODE TESTS RESULT OUT OF REFERENCE UNITS RANGE LAB L501.080 70-110 mg/dL High BEDSIDE GLU 371 Result Comment: MANAGEMENT OF PATIENT CARE PER NURSING PROTOCOL Performed By: #### L501.080 #### [facility] [address] [place] [address] BEDSIDE GLUCOSE Collected: 07/20/2018 Status: F Source: [place] 12:08 PM [facility] REPOSITORY TYPE CODE TESTS RESULT OUT OF REFERENCE UNITS RANGE LAB L501.080 70-110 mg/dL High BEDSIDE GLU 356 Result Comment: MANAGEMENT OF PATIENT CARE PER NURSING PROTOCOL Performed By: #### L501.080 #### [facility] [address] [place] [address] Observed: 07/20/2018 Status: F Source: [place] CDIFF (MOLECULAR) 12:00 PM [facility] REPOSITORY Is the patient receiving laxatives? N New/unexplained onset of 3 or more stools in past 24 hrs? Y Cdiff-Molecular Normal Reference Range = Negative C. Diff DNA Negative- No toxigenic C. Diff DNA Detected NAAT METHOD Testing was performed using nucleic acid amplification Performed By: #### M100.6796 #### [facility] [address] [place], [address] 12 LEAD ELECTROCARDIOGRAM Observed: 07/20/2018 Status: F Source: [place] 9:52 AM [facility] REPOSITORY [facility] Cardi[facility] Services [address] [place] [address] 12 Lead EKG 07/16/18 2024 MR#: [id number] Acct: [id number] Name: SHERWIN HEATH Latricia Rep #: [id number] : 1940 78 From: Jaylon Millard MD Attending Dr: Parris Lynch MD Status: ADM IN Ordering Dr: Aspen Browning DO Date: 07/16/18 Location: U Sex: M C Admitted: 07/16/18 Test Reason : SOB Blood Pressure : / mmHG Vent. Rate : 109 BPM Atrial Rate : 109 BPM P-R Int : 162 ms QRS Dur : 068 ms QT Int : 302 ms P-R-T Axes : 023 010 016 degrees QTc Int : 406 ms Sinus tachycardia Possible Inferior infarct , age undetermined Anterior infarct , age undetermined Abnormal ECG When compared with ECG of 16-JUL-2018 13:53, MANUAL COMPARISON REQUIRED, DATA IS UNCONFIRMED Confirmed by VENICE SALDANA, JAYLON ([id number]), assistant film editor AYDE DAVILA ([id number]) on 07/20/2018 9:52:06 AM Referred By: Roland Pressley Confirmed By:JAYLON MILLARD MD 07/20/18 0952 Date Jaylon Millard MD CC: Parris Lynch MD; Gina Browning; Flory Pantoja MD; Roland Pressley MD Signed 12 LEAD ELECTROCARDIOGRAM Observed: 07/20/2018 Status: F Source: [place] 9:21 AM [facility] REPOSITORY [facility] Cardiovascular Services [address] [place] [address] 12 Lead EKG 07/16/18 1353 MR#: [id number] Acct: [id number] Name: SHERWIN HEATH Latricia Rep #: [id number] : 1940 78 From: Jaylon Millard MD Attending Dr: Parris Lynch MD Status: ADM IN Ordering Dr: David Flores DO Date: 07/16/18 Location: U Sex: M C Admitted: 07/16/18 Test Reason : FALL Blood Pressure : / mmHG Vent. Rate : 113 BPM Atrial Rate : 113 BPM P-R Int : 162 ms QRS Dur : 068 ms QT Int : 308 ms P-R-T Axes : 012 020 013 degrees QTc Int : 422 ms Sinus tachycardia Anterior infarct (cited on or before 01-JUL-2017) Abnormal ECG Confirmed by VENICE SALDANA, JAYLON ([id number]), assistant film editor AYDE DAVILA ([id number]) on 07/20/2018 9:21:09 AM Referred By: Roland Pressley Confirmed By:JAYLON MILLARD MD 07/20/18920 Date Jaylon Millard MD CC: Parris Lynch MD; Flory Pantoja MD; David Flores DO; Roland Pressley MD Signed BEDSIDE GLUCOSE Collected: 07/20/2018 Status: F Source: [place] 6:46 AM [facility] REPOSITORY TYPE CODE TESTS RESULT OUT OF REFERENCE UNITS RANGE LAB L501.080 70-110 mg/dL High BEDSIDE GLU 222 Result Comment: MANAGEMENT OF PATIENT CARE PER NURSING PROTOCOL Performed By: #### L501.080 #### [facility] [address] [place] [address] BEDSIDE GLUCOSE Collected: 07/19/2018 Status: F Source: [place] 9:32 PM [facility] REPOSITORY TYPE CODE TESTS RESULT OUT OF REFERENCE UNITS RANGE LAB L501.080 70-110 mg/dL High BEDSIDE GLU 296 Result Comment: MANAGEMENT OF PATIENT CARE PER NURSING PROTOCOL Performed By: #### L501.080 #### [facility] [address] [place] [address] BEDSIDE GLUCOSE Collected: 07/19/2018 Status: F Source: [place] 5:49 PM [facility] REPOSITORY TYPE CODE TESTS RESULT OUT OF REFERENCE UNITS RANGE LAB L501.080 70-110 mg/dL High BEDSIDE GLU 295 Result Comment: Insulin Given MANAGEMENT OF PATIENT CARE PER NURSING PROTOCOL Performed By: #### L501.080 #### [facility] [address] [place] [address] BEDSIDE GLUCOSE Collected: 07/19/2018 Status: F Source: [place] 11:10 AM [facility] REPOSITORY TYPE CODE TESTS RESULT OUT OF REFERENCE UNITS RANGE LAB L501.080 70-110 mg/dL High BEDSIDE GLU 394 Result Comment: Insulin Given MANAGEMENT OF PATIENT CARE PER NURSING PROTOCOL Performed By: #### L501.080 #### [facility] [address] [place] [address] BEDSIDE GLUCOSE Collected: 07/19/2018 Status: F Source: [place] 6:44 AM [facility] REPOSITORY TYPE CODE TESTS RESULT OUT OF REFERENCE UNITS RANGE LAB L501.080 70-110 mg/dL High BEDSIDE GLU 290 Result Comment: MANAGEMENT OF PATIENT CARE PER NURSING PROTOCOL Performed By: #### L501.080 #### [facility] [address] [address] CBC W/DIFF, AUTOMATED Collected: 07/19/2018 Status: F Source: [place] 5:51 AM [facility] REPOSITORY TYPE CODE TESTS RESULT OUT OF RANGE REFERENCE UNITS LAB L100.1000 4.4-11.0 K/mm3 High WBC 11.1 LAB L100.1200 4.6-6.2 M/mm3 Low RBC 3.10 LAB L100.1300 13.0-16.5 g/dl Low HGB 9.4 LAB L100.1400 40-54 % Low HCT 28.8 LAB L100.1500 80-94 fL Normal MCV 92.9 LAB L100.1600 27.0-32.0 pg Normal MCH 30.3 LAB L100.1700 32-36 g/gl Normal MCHC 32.6 LAB L100.1810 11.6-14.6 % High RDW CV 15.0 LAB L100.1820 35.1-43.9 fl High RDW SD 49.7 LAB L100.1900 150-450 K/mm3 Low PLT 98 LAB L100.2000 6.2-12.0 fl Normal MPV 10.3 LAB L100.2100 47-70 % High NEUT% 93.7 LAB L100.2200 19-41 % Low LY% 2.3 LAB L100.2300 0-10 % Normal MONO% 3.5 LAB L100.2400 0-5 % Normal EO% 0.0 LAB L100.2500 0-1 % Normal BASO% 0.0 LAB L100.2550 0.0-0.9 % Normal IM GRAN % 0.500 Result Comment: IG% - Immature Granulocytes (promyelocytes, myelocytes and metamyelocytes) > 1% indicates that a LEFT SHIFT is Present. LAB L100.2620 2.0-7.7 X10 3/uL High Absolute Neut 10.4 LAB L100.2720 0.83-4.51 X10 3/ul Low Absolute Lymph 0.25 LAB L100.4500 Normal SMEAR COMMENT Result Comment: LYMPHOPENIA NOTED Performed By: #### L100.0100 #### [facility] [address] [place], [address] BASIC METABOLIC Collected: 07/19/2018 Status: F Source: [place] PROFILE ([facility]) 5:51 AM [facility] REPOSITORY TYPE CODE TESTS RESULT OUT OF RANGE REFERENCE UNITS LAB L501.0100 74-106 mg/dL High GLU 289 Result Comment: Glucose result greater than or equal to 200 mg/dL suggests DIABETES MELLITUS per A.D.A. criteria. Please note revised GLUCOSE reference range effective 2017. LAB L501.1000 7-18 mg/dL High BUN 29 LAB L501.1100 0.70-1.30 mg/dL Normal CREAT,SERUM 0.93 Result Comment: The validity of the calculated GFR AND GFRAA in patients over 70 years has not been determined. Clinical correlation is essential. LAB L501.1110 >60 mL/min Normal EST GFR 83 Result Comment: Non- GFR Calc LAB L501.1115 >60 mL/min Normal EST GFR - AA 100 Result Comment: GFR Calc LAB L501.1255 ml/min Normal Estimated CRCL 62.31 LAB L501.1300 10-20 RATIO High BUN/CRE 31.1 LAB L501.2200 8.5-10 mg/dL Normal .1 CA 8.9 LAB L501.5300 136-14 mmol/L Normal 5 NA 142 LAB L501.5600 3.5-5. mmol/L Normal 1 K 4.5 LAB L501.5900 98-107 mmol/L Normal CL 104 LAB L501.6100 21.0-3 mmol/L Normal 2.0 CO2 28.0 LAB L501.6200 5-15 Normal GAP 10 Performed By: #### L500.2500 #### [facility] [address] [place], [address] BEDSIDE GLUCOSE Collected: 07/18/2018 Status: F Source: [place] 9:21 PM [facility] REPOSITORY TYPE CODE TESTS RESULT OUT OF REFERENCE UNITS RANGE LAB L501.080 70-110 mg/dL High BEDSIDE GLU 394 Result Comment: MANAGEMENT OF PATIENT CARE PER NURSING PROTOCOL Performed By: #### L501.080 #### [facility] [address] [place] [address] BEDSIDE GLUCOSE Collected: 07/18/2018 Status: F Source: [place] 5:24 PM [facility] REPOSITORY TYPE CODE TESTS RESULT OUT OF REFERENCE UNITS RANGE LAB L501.080 70-110 mg/dL High BEDSIDE GLU 411 Result Comment: MANAGEMENT OF PATIENT CARE PER NURSING PROTOCOL Performed By: #### L501.080 #### [facility] [address] [place] [address] BEDSIDE GLUCOSE Collected: 07/18/2018 Status: F Source: [place] 1:09 PM [facility] REPOSITORY TYPE CODE TESTS RESULT OUT OF REFERENCE UNITS RANGE LAB L501.080 70-110 mg/dL High BEDSIDE GLU 443 Result Comment: MANAGEMENT OF PATIENT CARE PER NURSING PROTOCOL Performed By: #### L501.080 #### [facility] [address] [place] [address] BEDSIDE GLUCOSE Collected: 07/18/2018 Status: F Source: [place] 7:15 AM [facility] REPOSITORY TYPE CODE TESTS RESULT OUT OF REFERENCE UNITS RANGE LAB L501.080 70-110 mg/dL High BEDSIDE GLU 349 Result Comment: MANAGEMENT OF PATIENT CARE PER NURSING PROTOCOL Performed By: #### L501.080 #### [facility] [address] [place] [address] BEDSIDE GLUCOSE Collected: 07/17/2018 Status: F Source: [place] 9:01 PM [facility] REPOSITORY TYPE CODE TESTS RESULT OUT OF REFERENCE UNITS RANGE LAB L501.080 70-110 mg/dL High alert BEDSIDE GLU 478 Result Comment: Insulin Given MANAGEMENT OF PATIENT CARE PER NURSING PROTOCOL Performed By: #### L501.080 #### [facility] [address] [place] [address] BEDSIDE GLUCOSE Collected: 07/17/2018 Status: F Source: [place] 5:31 PM [facility] REPOSITORY TYPE CODE TESTS RESULT OUT OF REFERENCE UNITS RANGE LAB L501.080 70-110 mg/dL High BEDSIDE GLU 410 Result Comment: MANAGEMENT OF PATIENT CARE PER NURSING PROTOCOL Performed By: #### L501.080 #### [facility] [address] [place] [address] BEDSIDE GLUCOSE Collected: 07/17/2018 Status: F Source: [place] 11:32 AM [facility] REPOSITORY TYPE CODE TESTS RESULT OUT OF REFERENCE UNITS RANGE LAB L501.080 70-110 mg/dL High BEDSIDE GLU 253 Result Comment: MANAGEMENT OF PATIENT CARE PER NURSING PROTOCOL Performed By: #### L501.080 #### [facility] [address] [place] [address] CONSULTATION Observed: 07/17/2018 Status: F Source: [place] 11:03 AM [facility] REPOSITORY [facility] Medical Records Department [address] [place] [address] Consultation 07/17/1830 MR#: [id number] Acct: [id number] Name: SHERWIN HEATH Latricia Rep #: [id number] : 1940 78 From: Nixon Reinoso DO PCP: Flory Pantoja MD Status: ADM IN Y Location: ICU ICU02-1 Reason for Consult Date of Consultation: 07/17/18 Reason for Consultation: Acute on chronic hypoxemic respiratory failure History of Present Illness: The patient is a 78-year-old male, with a history as outlined below, who presented to the emergency department on July 16 with initial complaints of neck pain after sustaining a mechanical fall. The patient also reported the presence of urinary incontinence. The patient has a reported history of interstitial lung disease and chronic hypoxemic respiratory failure, with a baseline supplemental oxygen requirement of 10 L/min. 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 He is co-managed by both Dr. Pressley and an outside waiter/waitress head at [facility]. He is currently a full CODE STATUS. The patient was recently admitted to the hospital May 08-, during which time he was treated for community acquired pneumonia and acute on chronic hypoxic respiratory failure. His sputum at that time was positive for MSSA. Surface echocardiogram last completed in April 2018 revealed evidence of stage I diastolic dysfunction with an ejection fraction of 75%. The patient did have evidence of moderate pulmonary hypertension with a right ventricular systolic pressure estimated to be 58 mmHg. On presentation to the emergency department, the patient was noted to be afebrile, tachycardic and hemodynamically stable. He was initially maintaining appropriate oxygen saturations on 6 L/min via nasal cannula. Laboratory evaluation revealed elevated white blood cell count to 17,000. Chemistry profile revealed a mildly elevated creatinine of 1.02. BNP was within normal limits. Urinalysis was positive for nitrites and leukocyte esterase. 5-100 urine white blood cells was noted, as well as 3+ urine bacteria. The patient was subsequently started on IV antibiotics and admitted to the progressive care unit for ongoing management. Of note, the patient has been tachypneic and tachycardic throughout his entire hospital admission to date. There was some concern by the overnight hospitalist during the early learning teacher hours of July 17 that the patient could decompensate clinically. Therefore, he was transitioned to the medical intensive care unit for ongoing management. However, the patient has refused to utilize BiPAP, despite having a known history of obstructive sleep apnea. He is also refused to utilize the incentive spirometer per documentation by respiratory therapy. Of note, there does appear to have been a sputum culture submitted by the patient's primary care provider on July 13, which was positive for 2+ Enterobacter, which was largely pansensitive. Past Medical History Past Medical History (Chronic Problems): Chronic Problems Chronic hypoxemic respiratory failure (Chronic) Thrombocytopenia (Chronic) BPH (benign prostatic hyperplasia) (Chronic) Moderate pulmonary arterial systolic hypertension (Chronic) Morbid obesity (Chronic) Grade I diastolic dysfunction (Chronic) Moderate tricuspid regurgitation (Chronic) Obstructive sleep apnea of adult (Chronic) Pulmonary fibrosis (Chronic) Diabetic neuropathy (Chronic) Hypertension (Chronic) Gastro-esophageal reflux (Chronic) Hyperlipidemia (Chronic) Type 2 diabetes mellitus (Chronic) Hypogonadism male (Chronic) Coronary artery arteriosclerosis (Chronic) Allergies No Known Allergies Allergy (Verified 07/16/18 12:56) Home Medications: Ambulatory Orders Medication Instructions Recorded Alfuzosin HCl [Uroxatral] 10 mg PO QHS 11/09/13 Surgical History: herniorrhaphy, - - Bilateral eyelid surgery Psychiatric History: Depression Smoking Status: Former smoker Tobacco Use: Non-smoker Alcohol: Rare Drugs: None - *Family History Maternal History Items: Heart Disease Paternal History Items: - - Bone and prostate cancer. Review of Systems Constitutional: Denies: Chills, Fever Eyes: Denies: Blurred vision, Double vision HEENT: Denies: Head Aches, Sinus Congestion, Sinus Drainage Cardiovascular: Denies: Chest Pain, Palpitations Respiratory: Reports: Shortness of Breath Gastrointestinal: Denies: Abdominal Pain, Nausea, Vomiting Genitourinary: Reports: Frequency Musculoskeletal: Denies: Joint Pain, Joint Tenderness Skin: Denies: Rash, Wounds Neurological: Denies: Numbness, Tingling, Focal weakness Psychiatric: Denies: Anxiety, Depression, Homicidal Ideations, Suicidal Ideations Hematologic/ Lymphatic: Denies: Easy Bruising, Easy Bleeding Patient Problems: Active and Suspected Problems Pyelonephritis (Acute) Sepsis (Acute) Urine retention (Suspected) Objective: The patient's most recent lab work, culture data and imaging studies have all been personally reviewed. Respiratory viral panel, urine and blood cultures are pending. - Physical Exam General: Alert, Cooperative, No apparent distress HEENT: Atraumatic, PERRLA, Normocephalic Oral: No Gingival or Mucosal Lesions/ Ulcerations Neck: Supple, No Nodes, Trachea Midline Lungs: Diminished, Rales - Basilar Cardiovascular: Regular rate, Regular Rhythm, Normal S1, Normal S2, No murmurs Abdomen: Bowel Sounds Present, Soft, Non Tender, Obese Extremities: No cyanosis, Edema Skin: No breakdown Musculoskeletal: No Tenderness to Palpation of Joints or Extremities, No Muscle Wasting Lymphatic: No Cervical, Supraclavicular, or Inguinal Adenopathy Neurological: Cranial nerves II-XII grossly intact, Neuro grossly intact Psych/Mental Status: Alert and oriented to time, place, person, mood and affect Vital Signs Temp Pulse Resp BP Pulse Ox 36.6 C 86 26 H 124/67 H 95 07/17/18 04:00 07/17/18 06:00 07/17/18 06:00 07/17/18 06:00 07/17/18 06:00 Oxygen Flow Rate (L/min) 14 Oxygen Delivery Method Nasal Cannula Weight: 239 lb 13.807 oz Body Mass Index (BMI) 0.1 Intake and Output for Last 24 Hours Intake Total 2028 603 / 603 Output Total 500 / 500 500 / 500 Balance 1529 / 1529 103 / 103 Microbiology Past 72 Hours 07/17/18 01:15 Respiratory Panel (PCR) - Preliminary Mucosa - Nasopharyngeal Laboratory Tests Past 24 Hrs WBC 16.8 H RBC 3.64 L Hgb 10.9 L WBC RBC Hgb Hct WBC 15.6 H RBC 3.27 L Hgb 10.2 L Hct 30.7 L MCV 93.9 MCH 31.2 WBC RBC Hgb Hct MCV MCH MCHC RDW RDW Differential Plt Count MPV Immature Gran % (Auto) Neut % (Auto) Lymph % (Auto) POC Glucose POC Glucose 336 H 251 H Clinical Impression(s) from Imaging Studies Brain CT 07/16/18 13:39 IMPRESSION: Chronic involutional changes of the brain. Electronically Signed: Saad Berry MD at 15:12 EST Tel [phone], Service support , Cervical Spine CT 07/16/18 13:40 IMPRESSION: Multilevel degenerative changes, as described above. Electronically Signed: Saad Berry MD at 15:24 EST Tel [phone], Service support , Chest X-Ray 07/16/18 14:35 IMPRESSION: Central vascular congestion and diffuse pulmonary edema with low lung volumes. Electronically Signed: Ton Daly MD at 14:53 EST Tel , Service support , Assessment/Plan Active and Suspected Problems Pyelonephritis (Acute) Sepsis (Acute) Urine retention (Suspected) RECOMMENDATIONS: 1. Discontinue continuous supplemental IV fluids. 2. Stop stress dose steroids, as the patient has never been hemodynamically unstable. 3. Start 1 g of IV Solu-Medrol daily times 3 days. 4. Broaden antibiotics to include Zosyn. 5. Send repeat blood cultures. 6. Continue scheduled bronchodilators. 7. Continue Imuran as ordered. 8. Continue insulin as ordered. 9. Wean supplemental oxygen as tolerated. IMPRESSIONS: 1. Sepsis secondary to suspected urinary source of infection and gram-negative bacteremia Continue current supportive measures with broad-spectrum antibiotics. The patient did have a sputum culture dated July 13 by his PCP, which revealed Enterobacter. Therefore, the patient's antibiotics were broadened this morning. He remains hemodynamically stable. Recommend discontinuation of supplemental IV fluids. 2. Acute on chronic hypoxemic respiratory failure with history of fibrosing NSIP with possible exacerbation/pulmonary infectious process Given that the patient recently had a positive sputum culture, his antibiotics will be broadened as noted above. He reportedly has a baseline 10 L/min supplemental oxygen requirement. He will be continued on Imuran, with plans to treat him with high-dose IV Solu-Medrol over the next 3 days. Continue scheduled bronchodilators. Wean supplemental oxygen as tolerated. 3. History of heart failure with preserved ejection fraction/pulmonary hypertension Recommend discontinuation of supplemental IV fluids. At the current time, the patient does not require the initiation of diuretics. 4. Hypertension/hyperlipidemia/neuropathy/diabetes mellitus/obstructive sleep apnea/GERD Complicates care, management, recovery and prognosis. Once the patient is transferred out of the medical intensive care unit, recommend that a consultation be placed to the patient's primary waiter/waitress head, Dr. Pressley. Recommend starting nocturnal CPAP therapy per home regimen. This note was generated with [employer] Me dictation software. It may contain incorrect words, spelling, and punctuation that were not noted in checking the note before signing. Code Visit Inpatient Anh AND M: [id number] Init Hosp L3 07/17/18 1103 <Electronically signed by Nixon Reinoso DO> Date Nixon Brown DO Cosigner Signature (if applicable): Date CC: Flory Pantoja MD; Nixon Reinoso D.O.; Roland Pressley MD Signed BEDSIDE GLUCOSE Collected: 07/17/2018 Status: F Source: [place] 8:44 AM [facility] REPOSITORY TYPE CODE TESTS RESULT OUT OF REFERENCE UNITS RANGE LAB L501.080 70-110 mg/dL High BEDSIDE GLU 268 Result Comment: MANAGEMENT OF PATIENT CARE PER NURSING PROTOCOL Performed By: #### L501.080 #### [facility] [address] [place] [address] Observed: 07/17/2018 Status: F Source: [place] CULTURE, BLOOD (WB) 8:30 AM [facility] REPOSITORY REDRAW. PREVIOUS SPECIMEN REJECTED DUE TO NOT LABELED. 07/17/18 0903 Anushka Yun. BC No growth in 5 days. Performed By: #### M200.1000 #### [facility] [address] [place], [address] Observed: 07/17/2018 Status: F Source: [place] CULTURE, BLOOD (WB) 8:20 AM [facility] REPOSITORY Has pt arrived? Y BC No growth in 5 days. Performed By: #### M200.1000 #### [facility] [address] [place], [address] CBC W/DIFF, AUTOMATED Collected: 07/17/2018 Status: F Source: [place] 5:30 AM [facility] REPOSITORY TYPE CODE TESTS RESULT OUT OF RANGE REFERENCE UNITS LAB L100.1000 4.4-11.0 K/mm3 High WBC 15.6 LAB L100.1200 4.6-6.2 M/mm3 Low RBC 3.27 LAB L100.1300 13.0-16.5 g/dl Low HGB 10.2 LAB L100.1400 40-54 % Low HCT 30.7 LAB L100.1500 80-94 fL Normal MCV 93.9 LAB L100.1600 27.0-32.0 pg Normal MCH 31.2 LAB L100.1700 32-36 g/gl Normal MCHC 33.2 LAB L100.1810 11.6-14.6 % High RDW CV 16.0 LAB L100.1820 35.1-43.9 fl High RDW SD 52.9 LAB L100.1900 150-450 K/mm3 Low PLT 97 LAB L100.2000 6.2-12.0 fl Normal MPV 9.9 LAB L100.2100 47-70 % High NEUT% 90.9 LAB L100.2200 19-41 % Low LY% 2.8 LAB L100.2300 0-10 % Normal MONO% 5.5 LAB L100.2400 0-5 % Normal EO% 0.1 LAB L100.2500 0-1 % Normal BASO% 0.1 LAB L100.2550 0.0-0.9 % Normal IM GRAN % 0.600 Result Comment: IG% - Immature Granulocytes (promyelocytes, myelocytes and metamyelocytes) > 1% indicates that a LEFT SHIFT is Present. LAB L100.2620 2.0-7.7 X10 3/uL High Absolute Neut 14.2 LAB L100.2720 0.83-4.51 X10 3/ul Low Absolute Lymph 0.44 Performed By: #### L100.0100 #### [facility] [address] [place], [address] BASIC METABOLIC Collected: 07/17/2018 Status: F Source: [place] PROFILE ([facility]) 5:30 AM [facility] REPOSITORY TYPE CODE TESTS RESULT OUT OF RANGE REFERENCE UNITS LAB L501.0100 74-106 mg/dL High GLU 257 Result Comment: Glucose result greater than or equal to 200 mg/dL suggests DIABETES MELLITUS per A.D.A. criteria. Please note revised GLUCOSE reference range effective 2017. LAB L501.1000 7-18 mg/dL Normal BUN 18 LAB L501.1100 0.70-1.30 mg/dL Normal CREAT,SERUM 0.96 Result Comment: The validity of the calculated GFR AND GFRAA in patients over 70 years has not been determined. Clinical correlation is essential. LAB L501.1110 >60 mL/min Normal EST GFR 80 Result Comment: Non- GFR Calc LAB L501.1115 >60 mL/min Normal EST GFR - AA 97 Result Comment: GFR Calc LAB L501.1255 ml/min Normal Estimated CRCL 96.02 LAB L501.1300 10-20 RATIO Normal BUN/CRE 18.7 LAB L501.2200 8.5-10 mg/dL Low .1 CA 8.4 LAB L501.5300 136-14 mmol/L Normal 5 NA 138 LAB L501.5600 3.5-5. mmol/L Normal 1 K 4.7 LAB L501.5900 98-107 mmol/L Normal CL 102 LAB L501.6100 21.0-3 mmol/L Normal 2.0 CO2 28.0 LAB L501.6200 5-15 Normal GAP 8 Performed By: #### L500.2500, L501.2300, L501.5200 #### [facility] [address] [facility]. [place], [place], [address] PHOSPHORUS Collected: 07/17/2018 Status: F Source: [place] 5:30 AM [facility] REPOSITORY TYPE CODE TESTS RESULT OUT OF RANGE REFERENCE UNITS LAB L501.2300 2.5-4.9 mg/dL Normal PHOS 3.8 Performed By: #### L500.2500, L501.2300, L501.5200 #### [facility] [address] [place], [address] MAGNESIUM Collected: 07/17/2018 Status: F Source: [place] 5:30 AM [facility] REPOSITORY TYPE CODE TESTS RESULT OUT OF RANGE REFERENCE UNITS LAB L501.5200 1.6-2.6 mg/dL Normal MG 1.9 Performed By: #### L500.2500, L501.2300, L501.5200 #### [facility] [address] [place], [address] Observed: 07/17/2018 Status: F Source: [place] RESPIRATORY PANEL 1:15 AM [facility] MOLECULAR REPOSITORY RP PANEL ADENOVIRUS Not Detected HUMAN METAPHNEUMO Not Detected INFLUENZA A Not Detected INFLUENZA A (SUBTYPE H1) Not Detected INFLUENZA A (SUBTYPE H3) Not Detected INFLUENZA B Not Detected PARAINFLUENZA 1 Not Detected PARAINFLUENZA 2 Not Detected PARAINFLUENZA 3 Not Detected PARAINFLUENZA 4 Not Detected RHINOVIRUS Not Detected RSV A Not Detected RSV B Not Detected NAAT METHOD Testing was performed using nucleic acid amplification Performed By: #### M100.638 #### [facility] [address] [place], [address] BEDSIDE GLUCOSE Collected: 07/16/2018 Status: F Source: [place] 9:22 PM [facility] REPOSITORY TYPE CODE TESTS RESULT OUT OF REFERENCE UNITS RANGE LAB L501.080 70-110 mg/dL High BEDSIDE GLU 336 Result Comment: MANAGEMENT OF PATIENT CARE PER NURSING PROTOCOL Performed By: #### L501.080 #### [facility] [address] [place] [address] HISTORY AND PHYSICAL Observed: 07/16/2018 Status: F Source: [place] EXAM 8:12 PM [facility] REPOSITORY [facility] Medical Records Department [address] [place] [address] History and Physical 07/16/18 1636 MR#: [id number] Acct: [id number] Name: SHERWIN HEATH Latricia Rep #: [id number] : 1940 78 From: Aspen Browning DO PCP: Flory Pantoja MD Status: ADM IN Location: [place] [address] Problem List (1) Pyelonephritis Status: Acute (2) Sepsis Status: Acute (3) Chronic hypoxemic respiratory failure Status: Chronic (4) Thrombocytopenia Status: Chronic (5) Urine retention Status: Suspected (6) BPH (benign prostatic hyperplasia) Status: Chronic (7) Coronary artery arteriosclerosis Status: Chronic (8) Diabetic neuropathy Status: Chronic (9) Gastro-esophageal reflux Status: Chronic (10) Hyperlipidemia Status: Chronic (11) Hypertension Status: Chronic (12) Hypogonadism male Status: Chronic (13) Obstructive sleep apnea of adult Status: Chronic (14) Pulmonary fibrosis Status: Chronic (15) Type 2 diabetes mellitus Status: Chronic (16) 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 The patient is a 78 year old M with a past medical history of pulmonary fibrosis, chronic respiratory failure with hypoxemia on 10 L of oxygen, chronic thrombocytopenia, BPH, coronary artery disease, diabetic nephropathy, GERD, hyperlipidemia, hypertension, moderate pulmonary hypertension, stage I diastolic dysfunction, moderate tricuspid regurgitation, hypogonadism, chronic steroid use, morbid obesity, obstructive sleep apnea and chronic normochromic normocytic anemia who presented to the emergency room today with a history of a fall on 07/15/2018 when he tripped over a towel and fell on his Left knee and struck his head. He refused to come to the ED on 07/15/18 but today he felt weak and sore all over and he was incontinent of urine. He also related that recently he has had dysuria and also suprapubic pain. He admits to feeling nauseated. He does not feel as though he empties his bladder. He has been diagnosed with BPH in the past and was on medication however for an unknown reason he stopped it. Vital signs of presentation to the emergency room were temperature 99.6, pulse rate 120, blood pressure 152/130, respiratory rate 16 and he was 98% saturated on a 6 L nasal cannula. White blood cell count is elevated at 16.8 with a left shift however the patient is on 30 mg of prednisone daily. Hemoglobin is 10.9 which is within his baseline. Platelet count is mildly decreased from his baseline at 88,000. Electrolytes are within normal limits and the BUN is 20 with a creatinine of 1.02. Troponin was less than 0.015. A UA showed 50-100 WBCs per high-power field, 3+ bacteria and positive nitrites. CT brain showed chronic involutional changes only. CT cervical spine showed multilevel degenerative changes with no fracture or dislocation. Chest x-ray showed a very poor inspiratory effort with pulmonary vascular congestion but this may be artificial secondary to the poor inspiration. He is being admitted to the hospital with a diagnosis of sepsis secondary to complicated UTI with pyelonephritis. Past Medical History Past Medical History (Chronic Problems): Chronic Problems Chronic hypoxemic respiratory failure (Chronic) Thrombocytopenia (Chronic) BPH (benign prostatic hyperplasia) (Chronic) Moderate pulmonary arterial systolic hypertension (Chronic) Morbid obesity (Chronic) Grade I diastolic dysfunction (Chronic) Moderate tricuspid regurgitation (Chronic) Obstructive sleep apnea of adult (Chronic) Pulmonary fibrosis (Chronic) Diabetic neuropathy (Chronic) Hypertension (Chronic) Gastro-esophageal reflux (Chronic) Hyperlipidemia (Chronic) Type 2 diabetes mellitus (Chronic) Hypogonadism male (Chronic) Coronary artery arteriosclerosis (Chronic) Allergies No Known Allergies Allergy (Verified 07/16/18 12:56) Home Medications: Ambulatory Orders Medication Instructions Recorded Alfuzosin HCl [Uroxatral] 10 mg PO QHS 11/09/13 Surgical History: herniorrhaphy, - - Bilateral eyelid surgery Psychiatric History: Depression Smoking Status: Former smoker Tobacco Use: Non-smoker Alcohol: Rare Drugs: None - *Family History Maternal History Items: Heart Disease Paternal History Items: - - Bone and prostate cancer. Review of Systems Constitutional: Reports: Weakness. Denies: Chills, Fever Eyes: Denies: Blurred vision HEENT: Reports: Head Aches - hit his head when he fell on 07/15/18. Denies: Difficulty Swallowing, Sinus Congestion, Sinus Drainage, Sore Throat Cardiovascular: Denies: Chest Pain, Light Headedness, Orthopnea, Palpitations, Syncope Respiratory: Reports: Shortness of breath at rest, Shortness of breath upon exertion. Denies: Cough, Sputum production, Wheezing Gastrointestinal: Denies: Abdominal Pain, Nausea, Vomiting Genitourinary: Reports: Dysuria, Incontinence, Nocturia, Retention, Urgency, - - suprapubic pain Musculoskeletal: Reports: Joint Pain - left knee after the recent fall. Denies: Joint Tenderness Skin: Reports: Wounds - small abrasion on the left knee. Denies: Rash Neurological: Denies: Focal weakness, Numbness, Tingling, Tremor, Seizures Psychiatric: Denies: Anxiety, Depression, Homicidal Ideations, Suicidal Ideations Endocrine: Denies: Change in Body Habitus Hematologic/ Lymphatic: Denies: Easy Bruising, Easy Bleeding, Hx of blood clot VTE Information - Inpt Only VTE Present on Admission: No VTE Mechan Device Prophylaxis: SCD's, Knee High CROW Hose VTE Pharm Prophylaxis ordered?: Yes Patient Problems: Active and Suspected Problems Pyelonephritis (Acute) Sepsis (Acute) Urine retention (Suspected) - Physical Exam General: Alert, Oriented x3, Cooperative, No apparent distress HEENT: PERRLA, EOMI, Normocephalic Oral: No Gingival or Mucosal Lesions/ Ulcerations, Dry Mucosa Neck: Supple, No Nodes, No Nuchal Rigidity, Trachea Midline Lungs: No rhonchi, No wheeze, Diminished, Rales Cardiovascular: Regular Rhythm, Normal S1, Normal S2, No murmurs, No rub noted, No Gallop, Tachycardic Abdomen: Bowel Sounds Present, Soft, Obese, Tender - in the suprapubic area Extremities: No cyanosis, No edema, Diminished Peripheral Pulses Skin: No rashes, No breakdown, - - he has a small abrasion and ecchymosis of the Left knee from recent fall Musculoskeletal: No Muscle Wasting, Arthritic Changes Neurological: Cranial nerves II-XII grossly intact, Neuro grossly intact Psych/Mental Status: Normal Affect, Appropriate Vital Signs Temp Pulse Resp BP Pulse Ox 99.6 F H 111 H 24 H 121/69 H 100 07/16/18 12:43 07/16/18 15:00 07/16/18 15:00 07/16/18 15:00 07/16/18 15:00 Oxygen Flow Rate (L/min) 10 Oxygen Delivery Method Nasal Cannula Weight: 247 lb 12.793 oz Body Mass Index (BMI) 37.6 Laboratory Tests Past 24 Hrs WBC 16.8 H RBC 3.64 L Hgb 10.9 L Hct 34.0 L MCV 93.4 MCH 29.9 MCHC 32.1 RDW 15.9 H RDW Differential 54.2 H WBC RBC Hgb Hct MCV MCH MCHC RDW RDW Differential Plt Count MPV Immature Gran % (Auto) Assessment/Plan All Active Problems Pyelonephritis (Acute) Sepsis (Acute) Acute pancreatitis (Resolved) Pneumonia due to Streptococcus pneumoniae (Resolved) Impressions 1. Sepsis secondary to pyelonephritis/complicated UTI 2. Suspected urinary retention-patient has a history of BPH and is off his medication and does not feel like he empties his bladder 3. Chronic hypoxemic respiratory failure on 10 L of oxygen at home secondary to pulmonary fibrosis-follows with Dr. Pressley 4. Chronic thrombocytopenia-etiology unknown 5. History of BPH 6. CAD 7. Diabetes mellitus type 2-uncontrolled 8. Diabetic nephropathy 9. GERD 10. Hypertension 11. Hyperlipidemia 12. SARAH 13. Pulmonary fibrosis 14. Moderate pulmonary hypertension 15. Morbid obesity 16. Grade 1 diastolic dysfunction 17. Moderate tricuspid regurgitation 18. Hypogonadism 19. Chronic steroid use which complicates treatment of sepsis/pyelonephritis due to immunosuppression Urine and blood cultures X 2 Ibanez catheter was inserted in the ER Hydrate Bladder scan for urine residual after the Ibanez is removed Start Flomax Recheck the lab in the AM Start Rocephin and Cipro - watch for mental status changes in this elderly man with FQ's. Narrow the antibiotic coverage when C AND S is available Accuchecks AC and HS with SSI Decrease the HS dose of the Lantus and the mealtime insulin since he will be on a calorie controlled diet......adjust insulin daily to maintain BS's < 200 Continue the Prednisone at the current dose Check a BNP but, I suspect the vascular congestion on the CXR/rad report is due to a poor inspiratory effort and not to CHF. Code Visit Inpatient E AND M: 44152 Init Hosp L3 07/16/182011 <Electronically signed by Aspen Browning DO> Date M Yanni Browning DO Cosign Signature: Date (if applicable) CC: Gina Browning; Flory Pantoja MD Signed BEDSIDE GLUCOSE Collected: 07/16/2018 Status: F Source: [place] 5:56 PM [facility] REPOSITORY TYPE CODE TESTS RESULT OUT OF REFERENCE UNITS RANGE LAB L501.080 70-110 mg/dL High BEDSIDE GLU 251 Result Comment: MANAGEMENT OF PATIENT CARE PER NURSING PROTOCOL Performed By: #### L501.080 #### [facility] [address] [facility] [place] [address] EMERGENCY DEPARTMENT Observed: 07/16/2018 Status: F Source: [place] SUMMARY 3:42 PM [facility] REPOSITORY [facility] Medical Records Department [address] [place] [address] Emergency Department Summary 07/16/18 1538 MR#: [id number] Acct: [id number] Name: SHERWIN HEATH Rep #: [id number] : 1940 78 From: David Flores DO PCP: Flory Pantoja MD Status: REG ER - ER Visit Summary Date of Service: 07/16/18 Chief Complaint: [Fall with head and neck pain and urinary incontinence] History of Present Illness: The patient is a 78 M [presents to the emergency department with complaint of head neck pain after sustaining a fall last evening. Patient states that he was using some sort of a roller when he lost his balance falling forward striking his head on some cupboards in the bathroom. No loss of consciousness. Patient was unable to get up therefore the called EMS who assisted the patient last night. Patient was noted to have some lacerations to his scalp however he refused transport to the ER. Today patient complaining of more pain everywhere and generalized weakness. Patient also states that he is lost control of his bladder for 5 times today. Patient has had some frequency but denies dysuria or urgency. Patient denies any fevers. Patient tells me he has a history of chronic interstitial lung disease and normally wears 10 L of oxygen at home.] Physical Examination: [HEENT-PERRLA, EOMI. Cranial nerves II through XII grossly intact. TMs clear. Mucous membranes moist. No adenopathy. Patient has a healing 3 cm laceration to his frontal scalp. No bony step-offs. Patient has diffuse tenderness over the C-spine and cervical paraspinal musculature. Cardiovascular-regular rate and rhythm without murmur or ectopy Lungs-clear to auscultation, chest wall stable without crepitus or subcu emphysema Abdomen-normoactive bowel sounds, soft, nontender, no rebound or rigidity, no peritoneal signs. Extremities-intact 4, normal range of motion, normal pulses, atraumatic] Test Results: [Patient had an EKG which showed a sinus rhythm with a ventricular rate of 113 bpm. 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 CBC with differential obtained showed a white count of 16.8, hemoglobin 10.9, hematocrit 34, platelets were 88. Chemistries unremarkable. Glucose was 226. LFTs unremarkable. Troponin was less than 0.015. CT scan of the brain showed nothing acute. CT C-spine showed degenerative changes. Chest x-ray showed pulmonary edema and cardiomegaly. Urinalysis was positive for 500 leukocyte esterase, positive nitrites, 50-100 WBCs and +3 bacteria.] Emergency Department Course and Treatment: [Patient had blood cultures ordered urine culture sent. Patient was started on Rocephin 1 g IV. Patient was medicated with morphine and Zofran.] Treatment Plan: [Admit for IV antibiotics and pain control] Disposition: [Admit] Impression: [UTI Sepsis Mechanical fall Close head injury] This note was generated with [employer] dictation software. It may contain incorrect words, spelling, and punctuation that were not noted in review of the chart prior to signing ED Disposition - Plan for ED Patient: Chief Complaint: Fall Referrals: Flory Pantoja MD [Primary Care Provider] - What to do if you have Problems For any increased pain, shortness of breath, bleeding, nausea or vomiting, chest pain, or any unexpected problems, contact your Primary Care Provider. Call [facility] ([phone]) or report to the closest Emergency Room. Call 911 if necessary. 07/16/18 1542 <Electronically signed by David Flores DO> Date David Flores DO Cosigner Signature (If Indicated): Date CC: Flory Pantoja MD URINALYSIS, COMPLETE Collected: 07/16/2018 Status: F Source: [place] 2:55 PM [facility] REPOSITORY Order Comment: Order Date: 07/16/18 How was Urine Obtained? CATHETER SPECIMEN TYPE CODE TESTS RESULT OUT OF RANGE REFERENCE UNITS LAB L400.3000 Yellow COLOR Normal Yellow LAB L400.3050 Clear Sl Normal CLARITY Cldy LAB L400.3200 Normal mg/dl High 50 GLUCOSE, UR LAB L400.3300 Negative mg/dL Normal BILIRUBIN URINE Negative LAB L400.3400 Negative mg/dl Normal KETONE UR Negative LAB L400.3465 1.002-1.030 Normal SP.GR. DIPSTX 1.020 LAB L400.3550 5.0 - 8.0 pH UR Normal 6.0 LAB L400.3600 Negative mg/dl High PROT DIPSTX 100 LAB L400.3700 Normal mg/dl Normal UROBILI Normal LAB L400.3750 Negative High NITRITE UR Positive LAB L400.3780 Negative /ul High OCCULT BLOOD-UR 250 LAB L400.3800 Negative /ul High LEUK ESTERASE 500 LAB L400.4050 0-5 /hpf WBC Normal 50-100 SEEN LAB L400.4100 0-5 /hpf Normal RBC-UA 25-50 SEEN LAB L400.4150 0-5 /hpf SQUAM Normal EPI 0-5 SEEN LAB L400.4300 None Seen /hpf 3+ Normal BACTERIA LAB L400.4350 <or=2+ /hpf 0 Normal MUCUS, URINE SEEN LAB L400.4900 1+ Normal AMORPHOUS URATE Performed By: #### L400.0001 #### [facility] [address] [place], [place], [id number] Observed: 07/16/2018 Status: F Source: [place] CULTURE, URINE 2:55 PM [facility] REPOSITORY Comments: per kobe victor to use urine sample from ER. Urine Culture ORGANISM 1: Serratia marcescens [place]ingo Count >100,000 Serratia marcescens: REACTION Cefazolin $ >=64 R Cefepime $ <=0.12 S Ceftazidime *NF <=1 S Ceftriaxone $ <=0.25 S Ciprofloxacin $ <=0.25 S Ertapenim $$$ <=0.12 S Gentamicin $ <=1 S Levofloxacin $ <=0.12 S Nitrofurantoin $ 256 R Tobramycin $ 2 S Trimethoprim/Sulfametho $ <=20 S (NF) indicates non-formulary drug at [facility]. Approval by Infectious Disease Specialist required before non-formulary drugs may be ordered and/or dispensed. Performed By: #### M100.0650 #### [facility] [address] [facility] [address] [place], [place], [address] HEMOGLOBIN A1C Collected: 07/16/2018 Status: F Source: [place] 2:15 PM [facility] REPOSITORY TYPE CODE TESTS RESULT OUT OF RANGE REFERENCE UNITS LAB L501.9985 4.2-6.3 % High HGB A1C 10.0 Performed By: #### L501.9985 #### [facility] [address] [place], [address] Observed: 07/16/2018 Status: F Source: [place] CULTURE, BLOOD (WB) 2:15 PM [facility] REPOSITORY BC ANAEROBIC BOTTLE GRAM STAIN - GRAM NEGATIVE RODS RESULTS CALLED TO CRESCENCIO BENNETT 07/17/18 0640 Christine Garcia. REPORT READ BACK BY SAME. COLLECTED 07/16/18 1415 No anaerobic bacteria isolated. ORGANISM 1: Serratia marcescens Serratia marcescens: REACTION Cefazolin $ >=64 R Cefepime $ <=0.12 S Ceftazidime *NF <=1 S Ceftriaxone $ <=0.25 S Ciprofloxacin $ <=0.25 S Ertapenim $$$ <=0.12 S Gentamicin $ <=1 S Levofloxacin $ <=0.12 S Tobramycin $ <=1 S Trimethoprim/Sulfametho $ <=20 S (NF) indicates non-formulary drug at [facility]. Approval by Infectious Disease Specialist required before non-formulary drugs may be ordered and/or dispensed. Performed By: #### M200.1000 #### [facility] [address] [place], [address] CBC W/DIFF, AUTOMATED Collected: 07/16/2018 Status: F Source: [place] 2:07 PM [facility] REPOSITORY TYPE CODE TESTS RESULT OUT OF RANGE REFERENCE UNITS LAB L100.1000 4.4-11.0 K/mm3 High WBC 16.8 LAB L100.1200 4.6-6.2 M/mm3 Low RBC 3.64 LAB L100.1300 13.0-16.5 g/dl Low HGB 10.9 LAB L100.1400 40-54 % Low HCT 34.0 LAB L100.1500 80-94 fL Normal MCV 93.4 LAB L100.1600 27.0-32.0 pg Normal MCH 29.9 LAB L100.1700 32-36 g/gl Normal MCHC 32.1 LAB L100.1810 11.6-14.6 % High RDW CV 15.9 LAB L100.1820 35.1-43.9 fl High RDW SD 54.2 LAB L100.1900 150-450 K/mm3 Low PLT 88 LAB L100.2000 6.2-12.0 fl Normal MPV 10.0 LAB L100.2100 47-70 % High NEUT% 87.4 LAB L100.2200 19-41 % Low LY% 4.5 LAB L100.2300 0-10 % Normal MONO% 6.7 LAB L100.2400 0-5 % Normal EO% 0.3 LAB L100.2500 0-1 % Normal BASO% 0.1 LAB L100.2550 0.0-0.9 % High IM GRAN % 1.000 Result Comment: IG% - Immature Granulocytes (promyelocytes, myelocytes and metamyelocytes) > 1% indicates that a LEFT SHIFT is Present. LAB L100.2620 2.0-7.7 X10 3/uL High Absolute Neut 14.6 LAB L100.2720 0.83-4.51 X10 3/ul Low Absolute Lymph 0.76 Performed By: #### L100.0100 #### [facility] [address] [place], [address] COMPREHENSIVE METABOLIC Collected: 07/16/2018 Status: F Source: [facility] 2:07 PM [facility] REPOSITORY TYPE CODE TESTS RESULT OUT OF RANGE REFERENCE UNITS LAB L501.0100 74-106 mg/dL High GLU 226 Result Comment: Glucose result greater than or equal to 200 mg/dL suggests DIABETES MELLITUS per A.D.A. criteria. Please note revised GLUCOSE reference range effective 2017. LAB L501.1000 7-18 mg/dL High BUN 20 LAB L501.1100 0.70-1.30 mg/dL Normal CREAT,SERUM 1.02 Result Comment: The validity of the calculated GFR AND GFRAA in patients over 70 years has not been determined. Clinical correlation is essential. LAB L501.1110 >60 mL/min Normal EST GFR 75 Result Comment: Non- GFR Calc LAB L501.1115 >60 mL/min Normal EST GFR - AA 91 Result Comment: GFR Calc LAB L501.1255 ml/min Normal Estimated CRCL 56.81 LAB L501.1300 10-20 RATIO Normal BUN/CRE 19.6 LAB L501.1500 6.4-8. g/dL Normal 2 T PROT 6.7 LAB L501.1800 3.2-5. g/dL Low 0 ALB 3.0 LAB L501.1950 2.2-4. g/dL Normal 2 GLOB 3.7 LAB L501.2000 0.9-2. RATIO Low 4 A/G 0.8 LAB L501.2200 8.5-10 mg/dL Normal .1 CA 9.3 LAB L501.4100 15-37 U/L Normal AST 23 LAB L501.4305 45-117 U/L Normal ALK P 69 LAB L501.4405 16-61 U/L Normal ALT 27 LAB L501.4600 0.20-1 mg/dL High .00 T BILI 1.20 LAB L501.5300 136-14 mmol/L Normal 5 NA 139 LAB L501.5600 3.5-5. mmol/L Normal 1 K 4.6 LAB L501.5900 98-107 mmol/L Normal CL 101 LAB L501.6100 21.0-3 mmol/L Normal 2.0 CO2 30.0 LAB L501.6200 5-15 Normal GAP 8 Performed By: #### L500.4050, L501.4010 #### [facility] [address] [place], [address] TROPONIN-I Collected: 07/16/2018 Status: F Source: [place] 2:07 PM [facility] REPOSITORY TYPE CODE TESTS RESULT OUT OF RANGE REFERENCE UNITS LAB L501.4010 <0.045 ng/mL Normal < 0.015 TROPONIN-I Result Comment: TROPONIN-I EXPECTED VALUES <0.045 Negative 0.045 - 0.590 Consistent with Cardiac Damage > OR = 0.600 Critical Value Not every elevated troponin is indicative of AR. These values should be used with clinical judgement in examining the patient's clinical picture for diagnosis. To establish a diagnosis of AR versus myocardial injury, there must be a demonstrated rise and/or fall in the troponin values, in addition to ischemic symptoms, EKG changes, new regional wall motion abnormality, and/or angiographical evidence. PLEASE NOTE: REFERENCE RANGES EDITED 17 Performed By: #### L500.4050, L501.4010 #### [facility] [address] [place], [address] LACTIC ACID Collected: 07/16/2018 Status: F Source: [place] 2:07 PM [facility] REPOSITORY Order Comment: Yes/No query for Sepsis Lactate Rule Y TYPE CODE TESTS RESULT OUT OF RANGE REFERENCE UNITS LAB L503.6005 0.4-2.0 mmol/L Normal LACTIC ACID 1.4 Performed By: #### L503.6005 #### [facility] [address] [place], [address] ERYTHROCYTE SED RATE Collected: 07/16/2018 Status: F Source: [place] 2:07 PM [facility] REPOSITORY TYPE CODE TESTS RESULT OUT OF RANGE REFERENCE UNITS LAB L102.0000 0-20 mm/hr High SED RATE 65 Performed By: #### L101.9900 #### [facility] [address] [place], [address] MAGNESIUM Collected: 07/16/2018 Status: F Source: [place] 2:07 PM [facility] REPOSITORY TYPE CODE TESTS RESULT OUT OF RANGE REFERENCE UNITS LAB L501.5200 1.6-2.6 mg/dL Normal MG 1.9 Performed By: #### L501.5200, L501.6710 #### [facility] [address] [place], [address] CRP Collected: 07/16/2018 Status: F Source: [place] 2:07 PM [facility] REPOSITORY TYPE CODE TESTS RESULT OUT OF RANGE REFERENCE UNITS LAB L501.6710 0.0-3.0 mg/L High 158.00 C-REACTIVE PROT Result Comment: C-Reactive Protein (CRP) provides useful information for the diagnosis, therapy and monitoring of inflammatory processes and associated diseases. For the evaluation of Relative Risk for Cardiovascular Disease, a High Sensitivity CRP (HSCRP) should be ordered. Performed By: #### L501.5200, L501.6710 #### [facility] [address] [place], [address] BNP,B-TYPE NATRIURETIC Collected: 07/16/2018 Status: F Source: [place] PEPTIDE 2:07 PM [facility] REPOSITORY TYPE CODE TESTS RESULT OUT OF RANGE REFERENCE UNITS LAB L503.6620 0-100 pg/mL Normal B-TYPE 15.4 KALPANA PEP Performed By: #### L503.6620 #### [facility] [address] [place], [address] Observed: 07/16/2018 Status: F Source: [place] CULTURE, BLOOD (WB) 2:07 PM [facility] REPOSITORY BC No growth in 5 days. Performed By: #### M200.1000 #### [facility] [address] [place], [address] CHEST 1 VIEW Observed: 07/16/2018 Status: F Source: [place] (PORTABLE) 1:41 PM [facility] REPOSITORY [facility] Imaging Services [address] [place] [address] Chest 1 View (Portable) MR#: [id number] Acct: [id number] Name: SHERWIN HEATH Rep #: [id number] : 1940 M 78 From: Ton Daly MD PCP: Flory Pantoja MD Status: REG ER Study: Chest 1 View (Portable) Date of Exam: 07/16/18 Exam# [id number] Ordering Dr: David Flores DO STUDY: X-RAY CHEST REASON FOR EXAM: Male, 78 years old. Cough TECHNIQUE: Single frontal view of the chest. COMPARISON: 07/02/2018 FINDINGS: Central vascular congestion and diffuse pulmonary edema with low lung volumes. There is no demonstrated pleural abnormality. Stable cardiomediastinal silhouette. Normal mediastinum and torrey. Normal visualized pulmonary arteries. Normal visualized aortic arch and descending thoracic aorta. Normal visualized thoracic spine. Normal visualized ribs, clavicles, and shoulders. There is no demonstrated abnormality of the visualized soft tissue structures of the upper abdomen. RAD/Chest 1 View (Portable) IMPRESSION: Central vascular congestion and diffuse pulmonary edema with low lung volumes. Electronically Signed: Ton Daly MD at 14:53 EST Tel , Service support , CC: Flory Pantoja MD; David Flores DO Fibrous Wallboard Inspector: Signed BRAIN/HEAD WITHOUT Observed: 07/16/2018 Status: F Source: [place] CONTRAST 1:41 PM [facility] REPOSITORY [facility] Imaging Services [address] [place] [address] Brain/Head without Contrast MR#: [id number] Acct: [id number] Name: SHERWIN HEATH Rep #: [id number] : 1940 M 78 From: Saad Berry MD PCP: Flory Pantoja MD Status: REG ER Study: Brain/Head without Contrast Date of Exam: 07/16/18 Exam# [id number] Ordering Dr: David Flores DO STUDY: CT BRAIN WITHOUT CONTRAST REASON FOR EXAM: Male, 78 years old. Laceration to the superior aspect of the skull following a fall. No loss of consciousness. RADIATION DOSAGE (If Supplied By Facility): CTDIvol = ( 60.81 ) mGy, DLP = ( 1135.50 ) mGycm TECHNIQUE: Transaxial CT imaging of the brain was performed without administration of intravenous contrast material. Individualized dose optimization techniques were used for this CT. COMPARISON: Comparison is made with prior study dated June 28, 2017. FINDINGS: Skull injury in the vertex of the head. Normal calvarium. There is moderate cerebral atrophy with widening of the extra- axial spaces and ventricular dilatation. There are areas of decreased attenuation within the white matter tracts of the supratentorial brain, consistent with microvascular disease changes. Normal basal ganglia and thalami. Normal brainstem. There is mild cerebellar atrophy. There is no intracranial hemorrhage. There are no findings of an acute ischemic infarction. Normal visualized paranasal sinuses. CT/Brain/Head without Contrast IMPRESSION: Chronic involutional changes of the brain. Electronically Signed: Saad Berry MD at 15:12 EST Tel [phone], Service support , CC: Flory Pantoja MD; David Flores DO Fibrous Wallboard Inspector: Signed SPINE CERVICAL Observed: 07/16/2018 Status: F Source: [place] WITHOUT CONTRAS 1:41 PM [facility] REPOSITORY [facility] Imaging Services [address] [place] [address] Spine Cervical without Contras MR#: [id number] Acct: [id number] Name: SHERWIN HEATH Rep #: [id number] : 1940 M 78 From: Saad Berry MD PCP: Flory Pantoja MD Status: REG ER Study: Spine Cervical without Contras Date of Exam: 07/16/18 Exam# [id number] Ordering Dr: David Flores DO STUDY: CT CERVICAL SPINE WITHOUT CONTRAST REASON FOR EXAM: Male, 78 years old. Skull laceration due to a fall. No loss of consciousness. RADIATION DOSAGE (If Supplied By Facility): CTDIvol = ( 36.62 ) mGy, DLP = ( 727.57 ) mGycm TECHNIQUE: High resolution transaxial imaging was performed without contrast material. Sagittal and coronal images were reconstructed. Individualized dose optimization techniques were used for this CT. COMPARISON: None FINDINGS: Normal craniovertebral junction. There are degenerative changes of the anterior atlantoaxial articulation. Normal odontoid process. There is straightening of the normal cervical lordosis. Normal vertebral bodies and posterior osseous elements. C2-3: Facet joint osteoarthritis and hypertrophy worse on the left side. Uncovertebral arthrosis more prominent on the left side. No significant neural foraminal stenosis is seen. C3-4: Mild degree of disc space narrowing. Anterior spondylosis. C4-5: Moderate degree of disc space narrowing. Anterior spondylosis. Uncovertebral arthrosis. C5-6: Moderate degree of disc space narrowing. Spondylosis. Uncovertebral arthrosis. Moderate degree of the right neural foraminal stenosis. C6-7: Moderate degree of disc space narrowing with spondylosis and uncovertebral arthrosis. Moderate degree of bilateral neural foraminal stenosis. Atherosclerotic calcification of the internal carotid arteries bilaterally. CT/Spine Cervical without Contras IMPRESSION: Multilevel degenerative changes, as described above. Electronically Signed: Saad Berry MD at 15:24 EST Tel [phone], Service support , CC: Flory Pantoja MD; David Flores DO Fibrous Wallboard Inspector: Signed Observed: 07/13/2018 Status: F Source: [place] CULTURE, SPUTUM 3:15 PM [facility] REPOSITORY Gram Stain Gram Stain 2+ Yeast Like Organisms 2+ Gram positive cocci 2+ White Blood Cells Resp. Culture ORGANISM 1: Enterobacter cloacae complex Amount Growth 2+ Enterobacter cloacae complex: REACTION Cefazolin $ >=64 R Cefepime $ <=0.12 S Ceftazidime *NF <=1 S Ciprofloxacin $ <=0.25 S Ertapenim $$$ <=0.12 S Gentamicin $ <=1 S Imipenem *NF <=0.25 S Levofloxacin $ <=0.12 S Piperacillin/Tazobactam $$ <=4 S Tobramycin $ <=1 S Trimethoprim/Sulfametho $ <=20 S (NF) indicates non-formulary drug at [facility]. Approval by Infectious Disease Specialist required before non-formulary drugs may be ordered and/or dispensed. Performed By: #### M100.0800 #### [facility] [address] [place], [address] CBC W/DIFF, AUTOMATED Collected: 07/13/2018 Status: F Source: [place] 11:00 AM [facility] REPOSITORY TYPE CODE TESTS RESULT OUT OF RANGE REFERENCE UNITS LAB L100.1000 4.4-11.0 K/mm3 Normal WBC 8.9 LAB L100.1200 4.6-6.2 M/mm3 Low RBC 3.55 LAB L100.1300 13.0-16.5 g/dl Low HGB 10.8 LAB L100.1400 40-54 % Low HCT 33.4 LAB L100.1500 80-94 fL High MCV 94.1 LAB L100.1600 27.0-32.0 pg Normal MCH 30.4 LAB L100.1700 32-36 g/gl Normal MCHC 32.3 LAB L100.1810 11.6-14.6 % High RDW CV 15.6 LAB L100.1820 35.1-43.9 fl High RDW SD 51.4 LAB L100.1900 150-450 K/mm3 Low PLT 99 LAB L100.2000 6.2-12.0 fl Normal MPV 10.3 LAB L100.2100 47-70 % High NEUT% 76.8 LAB L100.2200 19-41 % Low LY% 13.0 LAB L100.2300 0-10 % Normal MONO% 7.2 LAB L100.2400 0-5 % Normal EO% 1.1 LAB L100.2500 0-1 % Normal BASO% 0.2 LAB L100.2550 0.0-0.9 % High IM GRAN % 1.700 Result Comment: IG% - Immature Granulocytes (promyelocytes, myelocytes and metamyelocytes) > 1% indicates that a LEFT SHIFT is Present. LAB L100.2620 2.0-7.7 X10 3/uL Normal Absolute Neut 6.8 LAB L100.2720 0.83-4.51 X10 3/ul Normal Absolute Lymph 1.16 Performed By: #### L100.0100 #### [facility] [address] [place], [place], [address] COMPREHENSIVE METABOLIC Collected: 07/13/2018 Status: F Source: [facility] 11:00 AM [facility] REPOSITORY TYPE CODE TESTS RESULT OUT OF RANGE REFERENCE UNITS LAB L501.0100 74-106 mg/dL High GLU 226 Result Comment: Glucose result greater than or equal to 200 mg/dL suggests DIABETES MELLITUS per A.D.A. criteria. Please note revised GLUCOSE reference range effective 2017. LAB L501.1000 7-18 mg/dL High BUN 21 LAB L501.1100 0.70-1.30 mg/dL Normal CREAT,SERUM 0.90 Result Comment: The validity of the calculated GFR AND GFRAA in patients over 70 years has not been determined. Clinical correlation is essential. LAB L501.1110 >60 mL/min Normal EST GFR 86 Result Comment: Non- GFR Calc LAB L501.1115 >60 mL/min Normal EST GFR - AA 104 Result Comment: GFR Calc LAB L501.1300 10-20 RATIO High BUN/CRE 23.2 LAB L501.1500 6.4-8.2 g/dL T Normal PROT 6.4 LAB L501.1800 3.2-5.0 g/dL Low ALB 3.1 LAB L501.1950 2.2-4.2 g/dL Normal GLOB 3.3 LAB L501.2000 0.9-2.4 RATIO Normal A/G 0.9 LAB L501.2200 8.5-10.1 mg/dL CA Normal 8.8 LAB L501.4100 15-37 U/L Normal AST 37 Result Comment: Moderate Hemolysis, Result may be falsely increased. LAB L501.4305 45-117 U/L Normal ALK P 84 LAB L501.4405 16-61 U/L Normal ALT 37 LAB L501.4600 0.20-1.00 mg/dL Normal T BILI 0.60 LAB L501.5300 136-145 mmol/L Normal NA 141 LAB L501.5600 3.5-5.1 mmol/L Normal K 4.5 Result Comment: Moderate Hemolysis, Result may be falsely increased. LAB L501.5900 98-107 mmol/L Normal CL 101 LAB L501.6100 21.0-32.0 mmol/L Normal CO2 31.0 LAB L501.6200 5-15 Normal 9 GAP Performed By: #### L500.4050 #### [facility] [address] [facility] [place], [address] CHEST PA AND LATERAL Observed: 07/02/2018 Status: F Source: [place] 2:28 PM [facility] REPOSITORY [facility] Imaging Services [address] [place] [address] Chest PA and Lateral MR#: [id number] Acct: [id number] Name: SHERWIN HEATH Rep #: [id number] : 1940 M 78 From: Martinez Smith MD PCP: Flory Pantoja MD Status: REG CLI Study: Chest PA and Lateral Date of Exam: 07/02/18 Exam# [id number] Ordering Dr: Flory Pantoja MD STUDY: X-RAY CHEST REASON FOR EXAM: Male, 78 years old. Fever and cough TECHNIQUE: PA and 2 lateral views of the chest. COMPARISON: 05/08/2018 FINDINGS: As are underexpanded with partial but not yet complete resolution of previously described CHF. No demonstrated infiltrate or effusion. There is no demonstrated pleural abnormality. Stable cardiomegaly. Normal mediastinum and torrey. Normal visualized pulmonary arteries. There is atherosclerotic calcification of the aortic arch with tortuosity. There are diffuse degenerative changes of the visualized thoracic spine. Normal visualized ribs, clavicles, and shoulders. There is no demonstrated abnormality of the visualized soft tissue structures of the upper abdomen. RAD/Chest PA and Lateral IMPRESSION: Underexpanded lungs with partial but not yet complete resolution of previously described CHF. Follow-up recommended to assure resolution Electronically Signed: Kale Smith MD at 13:24 EST , Service support , CC: Flory Pantoja MD Fibrous Wallboard Inspector: Signed CBC W/DIFF, AUTOMATED Collected: 07/02/2018 Status: F Source: [place] 9:45 AM [facility] REPOSITORY Order Comment: PLEASE DO MANUAL PERIPHERAL SMEAR; REQUESTED TO DRAW IN CITRATE NON CLUMPING TUBE (FOR PLATELETS) PLATELET CLUMPING NOT OBSERVED ON PERIPHERAL SMEAR; RESULTED FROM NON-CITRATE TUBE. TYPE CODE TESTS RESULT OUT OF RANGE REFERENCE UNITS LAB L100.1000 4.4-11.0 K/mm3 High WBC 11.1 LAB L100.1200 4.6-6.2 M/mm3 Low RBC 3.94 LAB L100.1300 13.0-16.5 g/dl Low HGB 11.8 LAB L100.1400 40-54 % Low HCT 35.4 LAB L100.1500 80-94 fL Normal MCV 89.8 LAB L100.1600 27.0-32.0 pg Normal MCH 29.9 LAB L100.1700 32-36 g/gl Normal MCHC 33.3 LAB L100.1810 11.6-14.6 % High RDW CV 15.3 LAB L100.1820 35.1-43.9 fl High RDW SD 50.0 LAB L100.1900 150-450 K/mm3 Low PLT 122 LAB L100.2000 6.2-12.0 fl Normal MPV 9.8 LAB L100.3100 MANUAL DIFF Normal CELLS COUNTED 100 LAB L100.3200 47-70 % High 72 SEGS LAB L100.3300 0-5 % 1 Normal BAND LAB L100.3800 19-41 % 19 Normal LYMPH LAB L100.3900 0-10 % 8 Normal MONOCYTE LAB L100.5500 ADEQ Normal PLT EST ADEQUATE LAB L100.7000 NORM C AND C NORMAL Normal RED CELL MORPH NORM C+C LAB L100.2620 2.0-7.7 X10 3/uL High Absolute Neut 8.1 LAB L100.2720 0.83-4.51 X10 3/ul Normal Absolute Lymph 2.11 Performed By: #### L100.0100 #### [facility] [address] [facility] [place], [place], [address] ERYTHROCYTE SED RATE Collected: 07/02/2018 Status: F Source: [place] 9:45 AM [facility] REPOSITORY Order Comment: ADD TO H124 TYPE CODE TESTS RESULT OUT OF RANGE REFERENCE UNITS LAB L102.0000 0-20 mm/hr High SED RATE 39 Performed By: #### L101.9900 #### [facility] [address] [facility]. [place], [place], [address] PLATELET COUNT Collected: 06/08/2018 Status: F Source: [place] 10:45 AM [facility] REPOSITORY Order Comment: BELEN CITRATE NON-CLUMPING TUBE ALSO TYPE CODE TESTS RESULT OUT OF RANGE REFERENCE UNITS LAB L100.1900 150-450 K/mm3 Low PLT 67 Performed By: #### L100.1900 #### [facility] [address] [place], [address] COMPREHENSIVE METABOLIC Collected: 06/01/2018 Status: F Source: [place] [facility] 12:00 PM [facility] REPOSITORY TYPE CODE TESTS RESULT OUT OF RANGE REFERENCE UNITS LAB L501.0100 74-106 mg/dL High GLU 230 Result Comment: Glucose result greater than or equal to 200 mg/dL suggests DIABETES MELLITUS per A.D.A. criteria. Please note revised GLUCOSE reference range effective 2017. LAB L501.1000 7-18 mg/dL High BUN 23 LAB L501.1100 0.70-1.30 mg/dL Normal CREAT,SERUM 0.83 Result Comment: The validity of the calculated GFR AND GFRAA in patients over 70 years has not been determined. Clinical correlation is essential. LAB L501.1110 >60 mL/min Normal EST GFR 95 Result Comment: Non- GFR Calc LAB L501.1115 >60 mL/min Normal EST GFR - AA 114 Result Comment: GFR Calc LAB L501.1300 10-20 RATIO High BUN/CRE 27.6 LAB L501.1500 6.4-8.2 g/dL T Normal PROT 6.6 LAB L501.1800 3.2-5.0 g/dL Normal ALB 3.2 LAB L501.1950 2.2-4.2 g/dL Normal GLOB 3.4 LAB L501.2000 0.9-2.4 RATIO Normal A/G 0.9 LAB L501.2200 8.5-10.1 mg/dL CA Normal 8.7 LAB L501.4100 15-37 U/L Normal AST 30 LAB L501.4305 45-117 U/L Normal ALK P 86 LAB L501.4405 16-61 U/L High ALT 70 LAB L501.4600 0.20-1.00 mg/dL T Normal BILI 0.70 LAB L501.5300 136-145 mmol/L NA Normal 136 LAB L501.5600 3.5-5.1 mmol/L K Normal 4.3 LAB L501.5900 98-107 mmol/L CL Normal 98 LAB L501.6100 21.0-32.0 mmol/L Normal CO2 30.0 LAB L501.6200 5-15 Normal GAP 8 Performed By: #### L500.4050, L501.5200 #### [facility] [address] [place], [place], [address] MAGNESIUM Collected: 06/01/2018 Status: F Source: [place] 12:00 PM [facility] REPOSITORY TYPE CODE TESTS RESULT OUT OF RANGE REFERENCE UNITS LAB L501.5200 1.6-2.6 mg/dL Normal MG 2.1 Performed By: #### L500.4050, L501.5200 #### [facility] [address] [place], [address] CBC W/DIFF, AUTOMATED Collected: 06/01/2018 Status: F Source: [place] 12:00 PM [facility] REPOSITORY TYPE CODE TESTS RESULT OUT OF RANGE REFERENCE UNITS LAB L100.1000 4.4-11.0 K/mm3 High WBC 11.7 LAB L100.1200 4.6-6.2 M/mm3 Low RBC 4.02 LAB L100.1300 13.0-16.5 g/dl Low HGB 12.2 LAB L100.1400 40-54 % Low HCT 37.0 LAB L100.1500 80-94 fL Normal MCV 92.0 LAB L100.1600 27.0-32.0 pg Normal MCH 30.3 LAB L100.1700 32-36 g/gl Normal MCHC 33.0 LAB L100.1810 11.6-14.6 % Normal RDW CV 14.1 LAB L100.1820 35.1-43.9 fl High RDW SD 46.3 LAB L100.1900 150-450 K/mm3 Low PLT 67 LAB L100.2000 6.2-12.0 fl Normal MPV 10.8 LAB L100.2100 47-70 % High NEUT% 85.2 LAB L100.2200 19-41 % Low LY% 7.3 LAB L100.2300 0-10 % Normal MONO% 6.3 LAB L100.2400 0-5 % Normal EO% 0.3 LAB L100.2500 0-1 % Normal BASO% 0.1 LAB L100.2550 0.0-0.9 % Normal IM GRAN % 0.800 Result Comment: IG% - Immature Granulocytes (promyelocytes, myelocytes and metamyelocytes) > 1% indicates that a LEFT SHIFT is Present. LAB L100.2620 2.0-7.7 X10 3/uL High Absolute Neut 10.0 LAB L100.2720 0.83-4.51 X10 3/ul Normal Absolute Lymph 0.86 Performed By: #### L100.0100 #### [facility] [address] [place], [address] VITAMIN B12 Collected: 06/01/2018 Status: F Source: [place] 12:00 PM [facility] REPOSITORY TYPE CODE TESTS RESULT OUT OF REFERENCE UNITS RANGE LAB L503.0105 211-911 pg/mL High Vitamin B12 1730 Performed By: #### L503.0105 #### [facility] [address] [place], [address] HEMOGLOBIN A1C Collected: 06/01/2018 Status: F Source: [place] 12:00 PM [facility] REPOSITORY TYPE CODE TESTS RESULT OUT OF RANGE REFERENCE UNITS LAB L501.9985 4.2-6.3 % High HGB A1C 9.7 Performed By: #### L501.9985 #### [facility] [address] [place], [address] NMR LIPOPROFILE Collected: 06/01/2018 Status: F Source: [place] 12:00 PM [facility] REPOSITORY TYPE CODE TESTS RESULT OUT OF RANGE REFERENCE UNITS LAB L3500.0050 NMR Normal LIPOPROFILE Result Comment: TEST RESULT LIMITS NMR LipoProfile LDL Particle Number LDL-P 861 nmol/L <1000 Low < 1000 Moderate 1000 - 1299 Borderline-High 1300 - 1599 High 1600 - 2000 Very High > 2000 Lipids LDL-C 68 mg/dL 0 - 99 Optimal < 100 Above optimal 100 - 129 Borderline 130 - 159 High 160 - 189 Very high > 189 Comment: LDL-C is inaccurate if patient is non-fasting. [...] <-Small (Pattern B)-> 23.0 20.6 20.5 19.0 Comment: Small LDL-P and LDL Size are associated with CVD risk, but not after LDL-P is taken into account. These assays were developed and their performance characteristics determined by [employer]. These assays have not been cleared by the [place] Food and Drug Administration. The clinical utility of these laboratory values have not been fully established. Insulin Resistance Score LP-IR Score 40 <=45 INSULIN RESISTANCE MARKER <--Insulin Sensitive Insulin Resistant--> Percentile in Reference Population Insulin Resistance Score LP-IR Score Low 25th 50th 75th High <27 27 45 63 >63 Comment: LP-IR Score is inaccurate if patient is non-fasting. The LP-IR score is a laboratory developed index that has been associated with insulin resistance and diabetes risk and should be used as one component of a physician's clinical assessment. The LP-IR score listed above has not been cleared by the [place] Food and Drug Administration. [facility]. ORIGINAL REPORT ON FILE IN LAB CONTAINS ADDITIONAL TEST SITE INFORMATION. Performed By: #### L3500.0000, L7400.3000 #### [facility] (refer to report for specific site) refer to report for address and phone number METHYLMALONIC ACID BLD Collected: 06/01/2018 Status: F Source: [place] 12:00 PM [facility] REPOSITORY TYPE CODE TESTS RESULT OUT OF RANGE REFERENCE UNITS LAB L7400.3000 Normal METHYLM [id number] Result Comment: TEST RESULT LIMITS Methylmalonic Acid, Serum Methylmalonic Acid, Serum 187 nmol/L 0 - 378 Disclaimer: This test was developed and its performance characteristics determined by [facility]. It has not been cleared or approved by the Food and Drug Administration. TESTING PERFORMED AT [facility]. ORIGINAL REPORT ON FILE IN LAB CONTAINS ADDITIONAL TEST SITE INFORMATION. Performed By: #### L3500.0000, L7400.3000 #### [facility] (refer to report for specific site) refer to report for address and phone number DISCHARGE SUMMARY Observed: 05/17/2018 Status: F Source: [place] 5:40 PM [facility] REPOSITORY [facility] Medical Records Department [address] [place] [address] Discharge Summary 05/17/18 0855 MR#: [id number] Acct: [id number] Name: SHERWIN HEATH Rep #: [id number] : 1940 78 From: Steven De Jesus DO PCP: Flory Pantoja MD Status: DIS IN Y Location: MS3 [id number] Discharge Date and Diagnosis Date of Admission: 05/08/18 Date of Discharge: 05/15/18 - Primary Discharge Diagnosis #1 community-acquired pneumonia-methicillin sensitive staph aureus #2 nonspecific interstitial pneumonitis #3 acute on chronic hypoxic respiratory failure #4 hypertension #5 type 2 diabetes #6 coronary artery disease #7 obstructive sleep apnea #8 debility secondary to acute on chronic respiratory failure - Secondary Discharge Diagnosis Chronic Problems Obstructive sleep apnea of adult (Chronic) Pulmonary fibrosis (Chronic) Chronic respiratory failure (Chronic) Diabetic neuropathy (Chronic) Hypertension (Chronic) Gastro-esophageal reflux (Chronic) Hyperlipidemia (Chronic) Type 2 diabetes mellitus (Chronic) Hypogonadism male (Chronic) Coronary artery arteriosclerosis (Chronic) Hospital Course and Treatment Operations: None Procedures: None Summary of Care Provided: The patient is a 78 year old M was seen in the emergency room at [facility] with chief complaint of shortness of breath, he is on chronic oxygen at home and has a history of chronic pulmonary issues. Patient had complained of cough productive of nunez and bobby sputum without blood. Chest x-ray was obtained in the emergency room, radiology read the chest x-ray is possibly indicating CHF, but patient had marked pulmonary fibrosis and the chest x-ray was felt to be chronic disease. There was believed to be a possible left lower lobe infiltrate however as read out by the emergency room physician. Lactate was 2.2, CBC did not show an elevated white blood cell count, influenza test was negative. Patient was felt to have community-acquired pneumonia, given IV antibiotics, and aerosol treatments were instituted and the patient was seen by pulmonary medicine. Patient was placed on dose corticosteroids for 3 days at the direction of pulmonary medicine, he required 50% O2 Via [employer]im[employer] and he was unable to be weaned from this oxygen setting. Patient was kept on IV antibiotics, sputum culture grew out methicillin sensitive staph aureus. He was seen by PT and OT, On 05/15/18, patient was seen and examined: On examination he appeared in good health and spirits. Vital signs as documented. Skin warm and dry and without overt rashes. Neck without JVD. Lungs-diffuse scattered inspiratory rales were noted bilaterally, no expiratory wheezes were noted, there are no rhonchi noted. Heart exam notable for regular rhythm, normal sounds and absence of murmurs, rubs or gallops. Abdomen unremarkable and without evidence of organomegaly, masses, or abdominal aortic enlargement. Extremities nonedematous. Neuro: Cranial nerves II through XII are grossly intact, no focal motor deficits were noted. Psych: Patient was alert and oriented x3, he was appropriate, he was not anxious or depressed. Patient was set up for a high flow oxygen concentrator at home due to his high flow rate of 6 L at rest and 10 L when ambulating. Overall prognosis was poor due to the patient's progressive lung disease. On 05/15/18, patient was seen and examined and discharged in stable condition to home - Physical Exam Vital Signs Temp Pulse Resp BP Pulse Ox 97.8 F 95 16 129/70 H 97 05/15/18 13:13 05/15/18 13:15 05/15/18 13:15 05/15/18 13:13 05/15/18 13:13 Oxygen Flow Rate (L/min) [ 10 AMBULATION with Oxygen] Oxygen Flow Rate (L/min) 6 Oxygen Delivery Method Nasal Cannula Weight: 108.908 kg Body Mass Index (BMI) 36.5 Intake and Output for Last 24 Hours Intake Total 1200 / 1200 Output Total 750 / 750 Balance 450 / 450 Microbiology Past 72 Hours 05/13/18 09:15 Gram Stain - Final Sputum, Expectorated/Coughed Respiratory Culture - Final Discharge Activity: Return to Normal Activity Weight Bearing Status: Weight bearing as tolerated, - - with walker Home Medications: Medications to take at Discharge RX: Alfuzosin HCl [Uroxatral] 10 mg PO QHS 11/09/13 RX: Atorvastatin Calcium [Lipitor] 10 mg PO QHS 11/09/13 RX: Flaxseed Oil/[place] 3,6,9 [Sv Flaxseed Oil 1,300 mg Sftgl] 1 cap PO DAILY 11/09/13 RX: Mometasone Furoate [Nasonex] 2 spray NASAL DAILY PRN PRN 11/09/13 RX: Potassium Chloride [K-Dur] 20 meq PO BID 11/09/13 RX: Tizanidine HCl [Zanaflex] 2 - 4 mg PO QHS 11/09/13 RX: Vitamin B Complex 1 cap PO DAILY 11/09/13 RX: Glucosamine Sulf/Chondroitin A [Glucosamine-Chondroitin Cap] 1 each PO BID 04/30/15 RX: Ranitidine [Zantac] 150 mg PO BID 06/27/17 RX: Sertraline HCl [Zoloft] 50 mg PO DAILY #30 tab 07/02/17 RX: Ascorbic Acid 500 mg PO DAILY 05/08/18 RX: Aspirin E.C. [Ecotrin] 81 mg PO DAILY@0800 05/08/18 RX: Azathioprine 100 mg PO DAILY 05/08/18 RX: Benazepril HCl [Lotensin] 10 mg PO DAILY 05/08/18 RX: Gabapentin [Neurontin] 600 mg PO TID 05/08/18 RX: Insulin Detemir [Levemir FlexPen] 24 units SC QHS 05/08/18 RX: Insulin Lispro [Humalog KwikPen] 6 units SQ TID 05/08/18 RX: Magnesium Oxide [Magnesium] 1,000 mg PO BID 05/08/18 RX: Multivit-Min/FA/Lycopen/Lutein [Centrum Silver Men Tablet] 1 tab PO DAILY 05/08/18 RX: Aspirin [Aspirin, Baby] 81 mg PO DAILY@0800 tab.chew 05/15/18 RX: Cefadroxil [Duricef] 1,000 mg PO BID #20 capsule 05/15/18 RX: Guaifenesin [Mucinex] 1,200 mg PO BID #60 tablet 05/15/18 RX: Ipratropium/Albuterol Sulfate [Duoneb] 3 ml INHALATION Q6H.RT #120 ampul.neb 05/15/18 RX: Lisinopril [Zestril] 10 mg PO DAILY #30 tablet 05/15/18 RX: Prednisone [Deltasone] 20 mg PO BID #60 tablet 05/15/18 Following Prescrptions Were Given to Patient: RX: Ipratropium/Albuterol Sulfate [Duoneb] 3 ml INHALATION Q6H.RT #120 ampul.neb RX: Lisinopril [Zestril] 10 mg PO DAILY #30 tablet RX: Cefadroxil [Duricef] 1,000 mg PO BID #20 capsule RX: Guaifenesin [Mucinex] 1,200 mg PO BID #60 tablet RX: Prednisone [Deltasone] 20 mg PO BID #60 tablet Primary Care Physician: Jaylon Allison MD [STAFF PHYSICIAN] - Please follow up with your Primary Care Physician in: in 2 weeks Please Follow Up With: Roland Pressley MD When: next week Disposition: Home with Home Health Minutes spent on discharge:: 35 Patient Condition:: Stable Medical Necessity - Tobacco Use Smoking Status: Former smoker Tobacco Use: Cigarettes Meaningful Use Info Meaningful Use Diagnoses (Choose all that apply): None applicable Code Visit Inpatient E AND M: 24224 Disch Hosp 05/17/18 1740 <Electronically signed by Steven De Jesus DO> Date Steven De Jesus DO Cosigner Signature (if applicable): Date CC: Flory Pantoja MD; Steven De Jesus DO Signed DISCHARGE INSTRUCTION Observed: 05/15/2018 Status: F Source: [place] 11:46 AM [facility] REPOSITORY [facility] Medical Records Department [address] [place] [address] Instructions for Home/Discharge Instructions 05/15/18 1143 MR#: [id number] Acct: [id number] Name: SHERWIN HEATH Latricia Rep #: [id number] : 1940 78 From: Steven De Jesus DO PCP: Flory Pantoja MD Status: ADM IN You will use the following diet at home:: Calorie/Carbohydrate Controlled (specify 1200, 1400, etc) - 1800 taiwo Your food should be the consistency of: Regular Your liquids should be the consistency of: Regular/Thin Discharge Activity: Return to Normal Activity Weight Bearing Status: Weight bearing as tolerated, - - with walker Allergies/Adverse Reactions: Allergies No Known Allergies Allergy (Verified 06/27/17 00:39) Medications to take at Discharge Alfuzosin HCl [Uroxatral] 10 mg PO QHS 11/09/13 Atorvastatin Calcium [Lipitor] 10 mg PO QHS 11/09/13 Flaxseed Oil/[place] 3,6,9 [Sv Flaxseed Oil 1,300 mg Sftgl] 1 cap PO DAILY 11/09/13 Mometasone Furoate [Nasonex] 2 spray NASAL DAILY PRN PRN 11/09/13 Potassium Chloride [K-Dur] 20 meq PO BID 11/09/13 Tizanidine HCl [Zanaflex] 2 - 4 mg PO QHS 11/09/13 Vitamin B Complex 1 cap PO DAILY 11/09/13 Glucosamine Sulf/Chondroitin A [Glucosamine-Chondroitin Cap] 1 each PO BID 10/27/14 Ranitidine [Zantac] 150 mg PO BID 06/27/17 Sertraline HCl [Zoloft] 50 mg PO DAILY #30 tab 07/02/17 Ascorbic Acid 500 mg PO DAILY 05/08/18 Aspirin E.C. [Ecotrin] 81 mg PO DAILY@0800 05/08/18 Azathioprine 100 mg PO DAILY 05/08/18 Benazepril HCl [Lotensin] 10 mg PO DAILY 05/08/18 Gabapentin [Neurontin] 600 mg PO TID 05/08/18 Insulin Detemir [Levemir FlexPen] 24 units SC QHS 05/08/18 Insulin Lispro [Humalog KwikPen] 6 units SQ TID 05/08/18 Magnesium Oxide [Magnesium] 1,000 mg PO BID 05/08/18 Multivit-Min/FA/Lycopen/Lutein [Centrum Silver Men Tablet] 1 tab PO DAILY 05/08/18 Aspirin [Aspirin, Baby] 81 mg PO DAILY@0800 tab.chew 05/15/18 Cefadroxil [Duricef] 1,000 mg PO BID #20 capsule 05/15/18 Guaifenesin [Mucinex] 1,200 mg PO BID #60 tablet 05/15/18 Ipratropium/Albuterol Sulfate [Duoneb] 3 ml INHALATION Q6H.RT #120 ampul.neb 05/15/18 Lisinopril [Zestril] 10 mg PO DAILY #30 tablet 05/15/18 Prednisone [Deltasone] 20 mg PO BID #60 tablet 05/15/18 The following prescriptions were given: Ipratropium/Albuterol Sulfate [Duoneb] 3 ml INHALATION Q6H.RT #120 ampul.neb Lisinopril [Zestril] 10 mg PO DAILY #30 tablet Cefadroxil [Duricef] 1,000 mg PO BID #20 capsule Guaifenesin [Mucinex] 1,200 mg PO BID #60 tablet Prednisone [Deltasone] 20 mg PO BID #60 tablet Primary Care Physician: Jaylon Allison MD [STAFF PHYSICIAN] - Please follow up with your Primary Care Physician in: in 2 weeks Test Results: Test results from this visit will be discussed in further detail at your follow-up appointment, if applicable. Please Follow Up With: Roland Pressley MD When: next week 05/15/18 1146 <Electronically signed by Steven De Jesus DO> Date Steven De Jesus DO CC: Flory Pantoja MD; Roland Pressley MD BEDSIDE GLUCOSE Collected: 05/15/2018 Status: F Source: [place] 11:10 AM [facility] REPOSITORY TYPE CODE TESTS RESULT OUT OF REFERENCE UNITS RANGE LAB L501.080 70-110 mg/dL High BEDSIDE GLU 228 Result Comment: MANAGEMENT OF PATIENT CARE PER NURSING PROTOCOL Performed By: #### L501.080 #### [facility] [address] [facility] [place] [address] BEDSIDE GLUCOSE Collected: 05/15/2018 Status: F Source: [place] 6:36 AM [facility] REPOSITORY TYPE CODE TESTS RESULT OUT OF REFERENCE UNITS RANGE LAB L501.080 70-110 mg/dL High BEDSIDE GLU 162 Result Comment: Insulin Given MANAGEMENT OF PATIENT CARE PER NURSING PROTOCOL Performed By: #### L501.080 #### [facility] [address] [place] [address] BEDSIDE GLUCOSE Collected: 05/14/2018 Status: F Source: [place] 9:06 PM [facility] REPOSITORY TYPE CODE TESTS RESULT OUT OF REFERENCE UNITS RANGE LAB L501.080 70-110 mg/dL High BEDSIDE GLU 289 Result Comment: Insulin Given MANAGEMENT OF PATIENT CARE PER NURSING PROTOCOL Performed By: #### L501.080 #### [facility] [address] [place] [address] BEDSIDE GLUCOSE Collected: 05/14/2018 Status: F Source: [place] 4:53 PM [facility] REPOSITORY TYPE CODE TESTS RESULT OUT OF REFERENCE UNITS RANGE LAB L501.080 70-110 mg/dL High BEDSIDE GLU 243 Result Comment: MANAGEMENT OF PATIENT CARE PER NURSING PROTOCOL Performed By: #### L501.080 #### [facility] [address] [place] [address] BEDSIDE GLUCOSE Collected: 05/14/2018 Status: F Source: [place] 11:29 AM [facility] REPOSITORY TYPE CODE TESTS RESULT OUT OF REFERENCE UNITS RANGE LAB L501.080 70-110 mg/dL High BEDSIDE GLU 355 Result Comment: MANAGEMENT OF PATIENT CARE PER NURSING PROTOCOL Performed By: #### L501.080 #### [facility] [address] [place] [address] BEDSIDE GLUCOSE Collected: 05/14/2018 Status: F Source: [place] 6:47 AM [facility] REPOSITORY TYPE CODE TESTS RESULT OUT OF REFERENCE UNITS RANGE LAB L501.080 70-110 mg/dL High BEDSIDE GLU 215 Result Comment: Insulin Given MANAGEMENT OF PATIENT CARE PER NURSING PROTOCOL Performed By: #### L501.080 #### [facility] [address] [place] [address] BEDSIDE GLUCOSE Collected: 05/13/2018 Status: F Source: [place] 10:47 PM [facility] REPOSITORY TYPE CODE TESTS RESULT OUT OF REFERENCE UNITS RANGE LAB L501.080 70-110 mg/dL High BEDSIDE GLU 311 Result Comment: MANAGEMENT OF PATIENT CARE PER NURSING PROTOCOL Performed By: #### L501.080 #### [facility] [address] [place] [address] BEDSIDE GLUCOSE Collected: 05/13/2018 Status: F Source: [place] 4:47 PM [facility] REPOSITORY TYPE CODE TESTS RESULT OUT OF REFERENCE UNITS RANGE LAB L501.080 70-110 mg/dL High BEDSIDE GLU 262 Result Comment: Insulin Given MANAGEMENT OF PATIENT CARE PER NURSING PROTOCOL Performed By: #### L501.080 #### [facility] [address] [place] [address] BEDSIDE GLUCOSE Collected: 05/13/2018 Status: F Source: [place] 11:02 AM [facility] REPOSITORY TYPE CODE TESTS RESULT OUT OF REFERENCE UNITS RANGE LAB L501.080 70-110 mg/dL High BEDSIDE GLU 261 Result Comment: MANAGEMENT OF PATIENT CARE PER NURSING PROTOCOL Performed By: #### L501.080 #### [facility] [address] [place] [address] Observed: 05/13/2018 Status: F Source: [place] CULTURE, SPUTUM 9:15 AM [facility] REPOSITORY List Antibiotics Last 48 Hours? cephalosporin Comments: please have a gram stain for fungal Gram Stain Acceptable Specimen? Yes (<25 Epithelial cells per/lpf) Gram Stain Rare Gram positive rods Rare Gram negative rods Rare Epithelial cells Rare White Blood Cells Resp. Culture Appears to be normal respiratory mariama. Further studies to follow. ORGANISM 1: Enterobacter cloacae complex Amount Growth 1+ Enterobacter cloacae complex: REACTION Amoxacillin/Clavulanic Acid $ 16 R Cefazolin $ >=64 R Cefepime $ <=1 S Ceftriaxone $ <=1 S Ciprofloxacin $ <=0.25 S Ertapenim $$$ <=0.5 S Gentamicin $ <=1 S Imipenem *NF <=0.25 S Levofloxacin $ <=0.12 S Piperacillin/Tazobactam $$ <=4 S Tobramycin $ <=1 S Trimethoprim/Sulfametho $ <=20 S (NF) indicates non-formulary drug at [facility]. Approval by Infectious Disease Specialist required before non-formulary drugs may be ordered and/or dispensed. Performed By: #### M100.0800 #### [facility] [address] [place], [place], [address] Observed: 05/13/2018 Status: F Source: [place] CULTURE, FUNGUS W/ 9:15 AM [facility] [id number] REPOSITORY Is this test to exclude patient from TB Isolation? N Cu,[id number] [facility]. ORIGINAL REPORT ON FILE IN LAB CONTAINS ADDITIONAL TEST SITE INFORMATION. ORGANISM 1: Deb parapsilosis Amount Growth Growth ORGANISM 2: Deb glabrata Amount Growth Growth ORGANISM 3: Deb rugosa Amount Growth Growth Fungus St 8136 [facility]. ORIGINAL REPORT ON FILE IN LAB CONTAINS ADDITIONAL TEST SITE INFORMATION. Fungus Stain Yeast Observed Performed By: #### M600.1900 #### [place] [facility] [address] [place], [place], [id number] BEDSIDE GLUCOSE Collected: 05/13/2018 Status: F Source: [place] 8:04 AM [facility] REPOSITORY TYPE CODE TESTS RESULT OUT OF REFERENCE UNITS RANGE LAB L501.080 70-110 mg/dL High BEDSIDE GLU 207 Result Comment: MANAGEMENT OF PATIENT CARE PER NURSING PROTOCOL Performed By: #### L501.080 #### [place] [facility] [address] [place], [place] [id number] BEDSIDE GLUCOSE Collected: 05/12/2018 Status: F Source: [place] 9:50 PM [facility] REPOSITORY TYPE CODE TESTS RESULT OUT OF REFERENCE UNITS RANGE LAB L501.080 70-110 mg/dL High BEDSIDE GLU 286 Result Comment: MANAGEMENT OF PATIENT CARE PER NURSING PROTOCOL Performed By: #### L501.080 #### [facility] [address] [place] [address] BEDSIDE GLUCOSE Collected: 05/12/2018 Status: F Source: [place] 4:50 PM [facility] REPOSITORY TYPE CODE TESTS RESULT OUT OF REFERENCE UNITS RANGE LAB L501.080 70-110 mg/dL High BEDSIDE GLU 338 Result Comment: MANAGEMENT OF PATIENT CARE PER NURSING PROTOCOL Performed By: #### L501.080 #### [facility] [address] [place] [address] BEDSIDE GLUCOSE Collected: 05/12/2018 Status: F Source: [place] 12:16 PM [facility] REPOSITORY TYPE CODE TESTS RESULT OUT OF REFERENCE UNITS RANGE LAB L501.080 70-110 mg/dL High BEDSIDE GLU 222 Result Comment: MANAGEMENT OF PATIENT CARE PER NURSING PROTOCOL Performed By: #### L501.080 #### [facility] [address] [place] [address] BEDSIDE GLUCOSE Collected: 05/12/2018 Status: F Source: [place] 7:23 AM [facility] REPOSITORY TYPE CODE TESTS RESULT OUT OF REFERENCE UNITS RANGE LAB L501.080 70-110 mg/dL High BEDSIDE GLU 225 Result Comment: MANAGEMENT OF PATIENT CARE PER NURSING PROTOCOL Performed By: #### L501.080 #### [facility] [address] [place] [address] BEDSIDE GLUCOSE Collected: 05/11/2018 Status: F Source: [place] 9:14 PM [facility] REPOSITORY TYPE CODE TESTS RESULT OUT OF REFERENCE UNITS RANGE LAB L501.080 70-110 mg/dL High BEDSIDE GLU 326 Result Comment: MANAGEMENT OF PATIENT CARE PER NURSING PROTOCOL Performed By: #### L501.080 #### [facility] [address] [place] [address] BEDSIDE GLUCOSE Collected: 05/11/2018 Status: F Source: [place] 4:43 PM [facility] REPOSITORY TYPE CODE TESTS RESULT OUT OF REFERENCE UNITS RANGE LAB L501.080 70-110 mg/dL High BEDSIDE GLU 310 Result Comment: MANAGEMENT OF PATIENT CARE PER NURSING PROTOCOL Performed By: #### L501.080 #### [facility] [address] [place] [address] ECHOCARDIOGRAM COMPLETE Observed: 05/11/2018 Status: F Source: [place] 3:17 PM [facility] REPOSITORY [facility] Cardiovascular Services [address] [place] [address] Echo Complete 05/11/18 0926 MR#: [id number] Acct: [id number] Name: SHERWIN HEATH Rep #: [id number] : 1940 78 From: Jaylon Millard MD Attending Dr: Liza LARIOS,Steven Status: ADM IN Ordering Dr: Marty Lay DO Date: 05/10/18 Location: [facility] Sex: M C Admitted: 05/08/18 Reason For Study: DYSPNEA/SOB Procedure This was a 2D Doppler, Color Flow transthoracic echocardiogram. The study was technically difficult. Due to body habitus and dyspnea. Deferred Definity due to increased PAP >55 mmHg. Exam performed portable in patient room. Left Ventricle Normal LV size. Left ventricular systolic function is normal. The estimated ejection fraction is 75 %. Stage 1 diastolic dysfunction. No regional wall motion abnormalities noted. Right Ventricle Normal RV size. Normal systolic function. Atria Normal left atrium. Normal right atrium. Mitral Valve There is moderate mitral annular calcification. Tricuspid Valve Normal tricuspid valve. Moderate (2+) tricuspid valve insufficiency. Pulmonary artery systolic pressure is 58 mmHg. Moderate pulmonary hypertension. Aortic Valve Trisinus/trileaflet aortic valve. Pulmonic Valve The pulmonic valve is not well visualized. Great Vessels Normal aortic root. The pulmonary artery is normal size. Normal inferior vena cava. Pericardium/Pleural No pericardial effusion. MMode/2D Measurements AND Calculations LVIDd: 4.0 cm IVSd: 1.2 cm Ao root diam: 3.7 cm LVIDs: 2.0 cm LVPWd: 1.1 cm LA dimension: 4.5 cm RVDd: 3.0 cm FS: 50.0 % LAV(MOD-bp): 66.9 ml EDV(MOD-sp4): 98.9 ml EDV(MOD-sp2): 67.1 ml LAV(MOD-bp) Indexed: 30.3 ml/m2 ESV(MOD-sp4): 32.2 ml EF(MOD-sp2): 67.3 % LAV(MOD-sp2): 66.0 ml EF(MOD-sp4): 67.4 % LAV(MOD-sp4): 67.0 ml SV(MOD-sp4): 66.7 ml SV(MOD-sp2): 45.2 ml LA A4 area: 21.9 cm2 LA dimension(2D): 4.5 cm Doppler Measurements AND Calculations MV E max thais: 101.5 cm/sec Lat Peak E' Thais: 5.5 cm/sec Med Peak E' Thais: 6.3 cm/sec MV A max thais: 158.1 cm/sec E/E' lat: 18.4 E/E' med: 16.2 MV E/A: 0.64 Ao V2 max: 171.5 cm/sec LV V1 max: 112.5 cm/sec PA V2 max: 134.6 cm/sec Ao max P.8 mmHg LV V1 max P.1 mmHg TR max thais: 362.6 cm/sec TR max P.3 mmHg Interpretation Summary Normal LV size. Left ventricular systolic function is normal. The estimated ejection fraction is 75 %. Stage 1 diastolic dysfunction. Moderate pulmonary hypertension. Moderate (2+) tricuspid valve insufficiency. Ordering Physician: Marty Lay Referring Physician: Flory Pantoja Performed By: Abiola Rodriguez, RDCS, RVT 05/11/18 1517 Date Jaylon Millard MD CC: Flory Pantoja MD; Marty Lay DO; Steven De Jesus DO Date Dictated: 05/11/18925 Date Transcribed: 05/11/181516 Fibrous Wallboard Inspector: Signed 12 LEAD ELECTROCARDIOGRAM Observed: 05/11/2018 Status: F Source: [place] 2:07 PM [facility] REPOSITORY [facility] Cardiovascular Services [address] [place] [address] 12 Lead EKG 05/08/18 1328 MR#: [id number] Acct: [id number] Name: SHERWIN HEATH Rep #: [id number] : 1940 78 From: Pradeep Zavala MD Attending Dr: Steven De Jesus DO Status: ADM IN Ordering Dr: Rodolfo Stanford MD Date: 05/08/18 [place] [facility] [place]: M C Admitted: 05/08/18 Test Reason : SOB Blood Pressure : / mmHG Vent. Rate : 104 BPM Atrial Rate : 104 BPM P-R Int : 174 ms QRS Dur : 072 ms QT Int : 340 ms P-R-T Axes : 010 017 004 degrees QTc Int : 447 ms Sinus tachycardia Possible Inferior infarct , age undetermined Anterior infarct , age undetermined Abnormal ECG Confirmed by PRADEEP ZAVALA ([id number]), assistant film editor AMALIA GANN ([id number]) on 05/11/2018 2:07:01 PM Referred By: ISIDORO Confirmed By:PRADEEP ZAVALA 05/11/18 1407 Date Pradeep Zavala MD CC: Flory Pantoja MD; Steven De Jesus DO; Rodolfo Stanford MD Signed BEDSIDE GLUCOSE Collected: 05/11/2018 Status: F Source: [place] 12:08 PM [facility] REPOSITORY TYPE CODE TESTS RESULT OUT OF REFERENCE UNITS RANGE LAB L501.080 70-110 mg/dL High BEDSIDE GLU 341 Result Comment: MANAGEMENT OF PATIENT CARE PER NURSING PROTOCOL Performed By: #### L501.080 #### [facility] [address] [place] [address] CBC W/DIFF, AUTOMATED Collected: 05/11/2018 Status: F Source: [place] 6:24 AM [facility] REPOSITORY TYPE CODE TESTS RESULT OUT OF RANGE REFERENCE UNITS LAB L100.1000 4.4-11.0 K/mm3 High WBC 11.1 LAB L100.1200 4.6-6.2 M/mm3 Low RBC 3.54 LAB L100.1300 13.0-16.5 g/dl Low HGB 10.8 LAB L100.1400 40-54 % Low HCT 33.2 LAB L100.1500 80-94 fL Normal MCV 93.8 LAB L100.1600 27.0-32.0 pg Normal MCH 30.5 LAB L100.1700 32-36 g/gl Normal MCHC 32.5 LAB L100.1810 11.6-14.6 % Normal RDW CV 14.4 LAB L100.1820 35.1-43.9 fl High RDW SD 47.1 LAB L100.1900 150-450 K/mm3 Low PLT 118 LAB L100.2000 6.2-12.0 fl Normal MPV 10.3 LAB L100.2100 47-70 % High NEUT% 93.3 LAB L100.2200 19-41 % Low LY% 3.4 LAB L100.2300 0-10 % Normal MONO% 3.1 LAB L100.2400 0-5 % Normal EO% 0.0 LAB L100.2500 0-1 % Normal BASO% 0.0 LAB L100.2550 0.0-0.9 % Normal IM GRAN % 0.200 Result Comment: IG% - Immature Granulocytes (promyelocytes, myelocytes and metamyelocytes) > 1% indicates that a LEFT SHIFT is Present. LAB L100.2620 2.0-7.7 X10 3/uL High Absolute Neut 10.3 LAB L100.2720 0.83-4.51 X10 3/ul Low Absolute Lymph 0.38 LAB L100.4500 Normal SMEAR COMMENT SCANNED Performed By: #### L100.0100 #### [facility] [address] [place], [place], [address] VANCOMYCIN, TROUGH Collected: 05/11/2018 Status: F Source: [place] LEVEL 6:24 AM [facility] REPOSITORY Order Comment: Comments: DRAW TROUGH 30 MIN PRIOR TO DOSE AT 07:00 Time Medication is to be Given? 0700 TYPE CODE TESTS RESULT OUT OF RANGE REFERENCE UNITS LAB L501.8820 5.0-15.0 ug/mL Normal VANCO, TROUGH 12.4 Result Comment: VANCOMYCIN STANDARED DRUG THERAPY TROUGH LEVEL: 5.0 - 15.0 mg/L VANCOMYCIN HIGH INTENSITY THERAPY TROUGH LEVEL: 15.0 - 20.0 mg/L High Intensity therapy recommended for serious life threatening infections include: - Meningitis -Endocarditis -Pneumonia (Ventilator/Healtcare Associated) -Sepsis PLEASE CONTACT PHARMACY SERVICES (#[id number]) FOR INTERPRETATION OF RESULTS. Performed By: #### L501.8820 #### [facility] [address] [place], [place], [address] BASIC METABOLIC Collected: 05/11/2018 Status: F Source: [place] PROFILE (BMP) 6:24 AM [facility] REPOSITORY TYPE CODE TESTS RESULT OUT OF RANGE REFERENCE UNITS LAB L501.0100 74-106 mg/dL High GLU 320 Result Comment: Glucose result greater than or equal to 200 mg/dL suggests DIABETES MELLITUS per A.D.A. criteria. Please note revised GLUCOSE reference range effective 2017. LAB L501.1000 7-18 mg/dL High BUN 25 LAB L501.1100 0.70-1.30 mg/dL Normal CREAT,SERUM 0.98 Result Comment: The validity of the calculated GFR AND GFRAA in patients over 70 years has not been determined. Clinical correlation is essential. LAB L501.1110 >60 mL/min Normal EST GFR 79 Result Comment: Non- GFR Calc LAB L501.1115 >60 mL/min Normal EST GFR - AA 95 Result Comment: GFR Calc LAB L501.1255 ml/min Normal Estimated CRCL 59.13 LAB L501.1300 10-20 RATIO High BUN/CRE 25.6 LAB L501.2200 8.5-10 mg/dL Low .1 CA 8.3 LAB L501.5300 136-14 mmol/L Normal 5 NA 139 LAB L501.5600 3.5-5. mmol/L Normal 1 K 4.9 LAB L501.5900 98-107 mmol/L Normal CL 104 LAB L501.6100 21.0-3 mmol/L Normal 2.0 CO2 24.0 LAB L501.6200 5-15 Normal GAP 11 Performed By: #### L500.2500 #### [facility] [address] [place], [place], [address] BEDSIDE GLUCOSE Collected: 05/11/2018 Status: F Source: [place] 6:20 AM [facility] REPOSITORY TYPE CODE TESTS RESULT OUT OF REFERENCE UNITS RANGE LAB L501.080 70-110 mg/dL High BEDSIDE GLU 330 Result Comment: MANAGEMENT OF PATIENT CARE PER NURSING PROTOCOL Performed By: #### L501.080 #### [facility] [address] [place] [address] BEDSIDE GLUCOSE Collected: 05/10/2018 Status: F Source: [place] 9:31 PM [facility] REPOSITORY TYPE CODE TESTS RESULT OUT OF REFERENCE UNITS RANGE LAB L501.080 70-110 mg/dL High BEDSIDE GLU 339 Result Comment: MANAGEMENT OF PATIENT CARE PER NURSING PROTOCOL Performed By: #### L501.080 #### [facility] Point of Care [address] [place] [address] BNP,B-TYPE NATRIURETIC Collected: 05/10/2018 Status: F Source: [place] 7:25 PM [facility] REPOSITORY TYPE CODE TESTS RESULT OUT OF RANGE REFERENCE UNITS LAB L503.6620 0-100 pg/mL Normal B-TYPE 64.5 KALPANA PEP Performed By: #### L503.6620 #### [facility] [address] [place] [place], [address] CONSULTATION Observed: 05/10/2018 Status: F Source: [place] 6:40 PM [facility] REPOSITORY [facility] Medical Records Department [address] [place] [address] Consultation 05/10/18 1829 MR#: [id number] Acct: [id number] Name: SHERWIN HEATH Rep #: [id number] : 1940 78 From: Roland Pressley MD PCP: Flory Pantoja MD Status: ADM [place] [facility] [id number] Reason for Consult History of Present Illness: The patient is a 78 year old M known to me for interstitial lung disease with rheumatoid arthritis. Rheumatoid arthritis is 5 years old. He has a nonspecific interstitial pneumonitis pattern with RA treated effectively with pulse steroids early on and then preserved with Imuran. He is co-managed with the waiter/waitress head at [facility]. He was recently seen at [facility] 2-1/2 weeks ago, he was stable then with some drop in pulmonary function capacity. His rheumatology evaluation revealed stable arthritis. He remains on 4 L oxygen. Oxygen requirements have not increased throughout the last year. He reports that over the last week he has had interval development of green sputum, brown sputum shifted over from a clear to yellow. In addition he has lost his appetite, become more dyspneic, noticed hypoxia with saturations drifting to 70%. He has had a week of dropping oxygen saturations loss of energy and increase in cough. On presentation his white count was not elevated, he has clinically responded to empiric antibiotic regimen. His appetite is improved and he continues to cough up dark sputum. He remains on high flow O2, 100% nonrebreather. The patient is not DNR and he is willing to proceed to [facility] if he deteriorates. [] Past Medical History Past Medical History (Chronic Problems): Chronic Problems Obstructive sleep apnea of adult (Chronic) Pulmonary fibrosis (Chronic) Chronic respiratory failure (Chronic) Diabetic neuropathy (Chronic) Hypertension (Chronic) Gastro-esophageal reflux (Chronic) Hyperlipidemia (Chronic) Type 2 diabetes mellitus (Chronic) Hypogonadism male (Chronic) Coronary artery arteriosclerosis (Chronic) Allergies No Known Allergies Allergy (Verified 06/27/17 00:39) Home Medications: Ambulatory Orders Medication Instructions Recorded Alfuzosin HCl [Uroxatral] 10 mg PO QHS 11/09/13 Atorvastatin Calcium [Lipitor] 10 mg PO QHS 11/09/13 Surgical History: herniorrhaphy, - - Bilateral eyelid surgery Psychiatric History: Depression Lives: Spouse/ Significant Other Smoking Status: Former smoker Tobacco Use: Cigarettes Alcohol: None Drugs: None - *Family History Maternal History Items: Heart Disease Paternal History Items: - - Bone and prostate cancer. Review of Systems Constitutional: Reports: Malaise, Fatigue. Denies: Chills, Fever, Weight Change HEENT: Reports: Difficulty Hearing. Denies: Head Aches, Sinus Congestion, Sinus Drainage Cardiovascular: Reports: - - Minimal edema. Denies: Chest Pain, Palpitations Respiratory: Denies: Cough, Shortness of breath at rest, Sputum production Gastrointestinal: Reports: - - Constipation now improved. Denies: Abdominal Pain, Nausea, Vomiting Genitourinary: Reports: - - No hematuria. Denies: Dysuria Musculoskeletal: Denies: Joint Pain, Joint Tenderness Skin: Denies: Rash, Wounds Neurological: Denies: Numbness, Tingling, Focal weakness Psychiatric: Denies: Anxiety, Depression, Homicidal Ideations, Suicidal Ideations Hematologic/ Lymphatic: Denies: Easy Bruising, Easy Bleeding Patient Problems: Active and Suspected Problems Pneumonia due to Streptococcus pneumoniae (Acute) - Physical Exam General: Alert, Oriented x3, Cooperative, Well nourished HEENT: Atraumatic, EOMI, Normocephalic, - - The patient is edentulous without any throat or oral lesions Oral: Moist Mucosa, No Gingival or Mucosal Lesions/ Ulcerations, Dry Mucosa Neck: Supple, No JVD, No Nodes, Trachea Midline Lungs: - - Bibasilar fine rales, 30-40% up the left chest 25% right chest, heard laterally, posteriorly, no wheeze no rhonchi no cough Cardiovascular: Regular rate, Normal S1, Normal S2, Tachycardic Extremities: No clubbing, No cyanosis, - - Trace pitting edema Skin: No rashes, No breakdown Musculoskeletal: No Tenderness to Palpation of Joints or Extremities Lymphatic: No Cervical, Supraclavicular, or Inguinal Adenopathy Neurological: Cranial nerves II-XII grossly intact, Neuro grossly intact, Motor Exam 5/5 strength throughout Psych/Mental Status: Normal Affect, Appropriate Vital Signs Temp Pulse Resp BP Pulse Ox 98.2 F 105 H 24 H 141/71 H 94 05/10/18 16:30 05/10/18 16:30 05/10/18 16:30 05/10/18 16:30 05/10/18 16:30 Oxygen Flow Rate (L/min) 6 Oxygen Delivery Method Nasal Cannula Weight: 108.908 kg Body Mass Index (BMI) 36.5 Intake and Output for Last 24 Hours Intake Total 1340 / 1340 1982 / 1982 Output Total 1750 / 1750 Balance 1340 / 1340 233 / 233 Microbiology Past 72 Hours 05/08/18 14:00 Blood Culture - Preliminary Blood Culture (Wb) #2 - Anticubital Right No growth in 48 hours. Laboratory Tests Past 24 Hrs WBC 7.3 RBC 3.73 L Hgb 11.2 L Hct 33.9 L MCV 90.9 MCH 30.0 MCHC 33.0 POC Glucose POC Glucose 329 H 357 H 332 H POC Glucose 285 H Assessment/Plan All Active Problems Pneumonia due to Streptococcus pneumoniae (Acute) Acute pancreatitis (Resolved) 78-year-old with 1 week of acute illness on top of stable rheumatoid, stable NSI P now with green sputum production, brown sputum production hemoptysis and a response to antibiotics. The impression is early pneumonia, immune suppressed host, nonspecific interstitial pneumonitis with possible worsening The CT scan is reviewed at length, there is a comparison abdominal CT from May 2017 [id number] there is little difference in the disease process with the exception of increase in subpleural honeycombing. Although the patient is on 100% nonrebreather he is comfortable not tachypneic able to complete sentences and I suspect generally improving over the last 24 hours. There is no way to distinguish exacerbation of NSI P from early infection Recommendations: B TNP, review echo for evidence of significant left heart disease, continue Zosyn and Vanco, I would obtain sputum for Gram stain to look for evidence of fungal disease, I would shift Solu-Medrol to 500 mg once daily for 3 days, if there is any deterioration I would recommend an early blood gas. Early noninvasive ventilation as well. Patient is not DNR and is willing to proceed to intubation and subsequent transfer to [facility] if need be. The case is discussed with the attending on service Dr. Florencio Cortes 05/10/18 [id number] <Electronically signed by Roland Pressley MD> Date Roland Pressley MD Cosigner Signature (if applicable): Date CC: Flory Pantoja MD; Roland Pressley MD Signed BEDSIDE GLUCOSE Collected: 05/10/2018 Status: F Source: [place] 4:57 PM [facility] REPOSITORY TYPE CODE TESTS RESULT OUT OF REFERENCE UNITS RANGE LAB L501.080 70-110 mg/dL High BEDSIDE GLU 329 Result Comment: MANAGEMENT OF PATIENT CARE PER NURSING PROTOCOL Performed By: #### L501.080 #### [place] [facility] Point of Care [address] [place] [address] BEDSIDE GLUCOSE Collected: 05/10/2018 Status: F Source: [place] 11:42 AM [facility] REPOSITORY TYPE CODE TESTS RESULT OUT OF REFERENCE UNITS RANGE LAB L501.080 70-110 mg/dL High BEDSIDE GLU 357 Result Comment: MANAGEMENT OF PATIENT CARE PER NURSING PROTOCOL Performed By: #### L501.080 #### [facility] Point of Care [address] [place] [address] CHEST WITH CONTRAST Observed: 05/10/2018 Status: F Source: [place] 9:01 AM [facility] REPOSITORY [facility] Imaging Services [address] [place] [address] Chest WITH Contrast MR#: [id number] Acct: [id number] Name: SHERWIN HEATH Rep #: [id number] : 1940 M 78 From: Tasha Gann MD PCP: Flory Pantoja MD Status: ADM IN Study: Chest WITH Contrast Date of Exam: 05/10/18 Exam# [id number] Ordering Dr: Marty Lay DO STUDY: CT CHEST WITH CONTRAST REASON FOR EXAM: Male, 78 years old. Shortness of breath and cough. RADIATION DOSAGE (If Supplied By Facility): CTDIvol = ( 15.06 ) mGy, DLP = ( 664.51 ) mGycm TECHNIQUE: Transaxial imaging was performed following intravenous administration of 100 ml of Isovue 300 contrast material. Multiplanar coronal and sagittal images were reformatted. Individualized dose optimization techniques were used for this CT. COMPARISON: Prior comparable comparison studies are not available for review at this time. FINDINGS: The lungs are underexpanded. There is heterogeneous groundglass attenuation in both upper lobes, right middle lobe, lingula and lower lobes. There is bronchiectasis in both lower lobes. There are lucencies within the right middle lobe that may be the result paraseptal emphysema. Interstitial thickening is visible in both lower lobes that may represent sequela pulmonary fibrosis. There is a calcified nodule in the left lower lobe probably is a granuloma. There is no demonstrated pleural abnormality. There are calcifications of the coronary arteries. There are calcifications of the coronary arteries. There are enlarged mediastinal lymph nodes in the subcarinal region, pretracheal and right paratracheal regions. One of the larger right-sided mediastinal power masses measures 3.7 x 2.1 x 1.7 cm. Normal hilar regions. There is prominence of the pulmonary hilar arteries without peripheral pulmonary vascular congestion. There is atherosclerotic calcification of the aortic arch with tortuosity and elongation of the aortic arch and descending thoracic aorta. Maximum transverse dimension of the ascending thoracic aorta measures approximately 4.4 cm. There are multi-level degenerative changes of the thoracic spine. There is a left-sided renal cyst measuring approximately 2 cm in greatest dimension. There are calcified splenic granulomas. CT/Chest WITH Contrast IMPRESSION: 1. 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 Sequela of interstitial pneumonitis is possible well. 2. Mediastinal lymphadenopathy. 3. Cardiomegaly and sequela of coronary artery vascular disease. Electronically Signed: Tasha Gann MD at 10:36 EST , Service support , CC: Flory Pantoja MD; Marty Lay DO Fibrous Wallboard Inspector: Signed CBC W/DIFF, AUTOMATED Collected: 05/10/2018 Status: F Source: [place] 7:40 AM [facility] REPOSITORY TYPE CODE TESTS RESULT OUT OF RANGE REFERENCE UNITS LAB L100.1000 4.4-11.0 K/mm3 Normal WBC 7.3 LAB L100.1200 4.6-6.2 M/mm3 Low RBC 3.73 LAB L100.1300 13.0-16.5 g/dl Low HGB 11.2 LAB L100.1400 40-54 % Low HCT 33.9 LAB L100.1500 80-94 fL Normal MCV 90.9 LAB L100.1600 27.0-32.0 pg Normal MCH 30.0 LAB L100.1700 32-36 g/gl Normal MCHC 33.0 LAB L100.1810 11.6-14.6 % Normal RDW CV 14.4 LAB L100.1820 35.1-43.9 fl High RDW SD 47.9 LAB L100.1900 150-450 K/mm3 Low PLT 111 LAB L100.2000 6.2-12.0 fl Normal MPV 9.9 LAB L100.2100 47-70 % High NEUT% 93.2 LAB L100.2200 19-41 % Low LY% 4.7 LAB L100.2300 0-10 % Normal MONO% 1.8 LAB L100.2400 0-5 % Normal EO% 0.1 LAB L100.2500 0-1 % Normal BASO% 0.1 LAB L100.2550 0.0-0.9 % Normal IM GRAN % 0.100 Result Comment: IG% - Immature Granulocytes (promyelocytes, myelocytes and metamyelocytes) > 1% indicates that a LEFT SHIFT is Present. LAB L100.2620 2.0-7.7 X10 3/uL Normal Absolute Neut 6.8 LAB L100.2720 0.83-4.51 X10 3/ul Low Absolute Lymph 0.34 Performed By: #### L100.0100 #### [facility] [address] [place], [address] BASIC METABOLIC Collected: 05/10/2018 Status: F Source: [place] PROFILE (BMP) 7:40 AM [facility] REPOSITORY TYPE CODE TESTS RESULT OUT OF RANGE REFERENCE UNITS LAB L501.0100 74-106 mg/dL High GLU 323 Result Comment: Glucose result greater than or equal to 200 mg/dL suggests DIABETES MELLITUS per A.D.A. criteria. Please note revised GLUCOSE reference range effective 2017. LAB L501.1000 7-18 mg/dL High BUN 20 LAB L501.1100 0.70-1.30 mg/dL Normal CREAT,SERUM 1.09 Result Comment: The validity of the calculated GFR AND GFRAA in patients over 70 years has not been determined. Clinical correlation is essential. LAB L501.1110 >60 mL/min Normal EST GFR 69 Result Comment: Non- GFR Calc LAB L501.1115 >60 mL/min Normal EST GFR - AA 84 Result Comment: GFR Calc LAB L501.1255 ml/min Normal Estimated CRCL 53.17 LAB L501.1300 10-20 RATIO Normal BUN/CRE 18.3 LAB L501.2200 8.5-10 mg/dL Normal .1 CA 8.5 LAB L501.5300 136-14 mmol/L Low 5 NA 135 LAB L501.5600 3.5-5. mmol/L Normal 1 K 4.2 LAB L501.5900 98-107 mmol/L Normal CL 98 LAB L501.6100 21.0-3 mmol/L Normal 2.0 CO2 26.0 LAB L501.6200 5-15 Normal GAP 11 Performed By: #### L500.2500 #### [facility] [address] [place], [address] BEDSIDE GLUCOSE Collected: 05/10/2018 Status: F Source: [place] 6:35 AM [facility] REPOSITORY TYPE CODE TESTS RESULT OUT OF REFERENCE UNITS RANGE LAB L501.080 70-110 mg/dL High BEDSIDE GLU 332 Result Comment: MANAGEMENT OF PATIENT CARE PER NURSING PROTOCOL Performed By: #### L501.080 #### [facility] Point of Care [address] [place] [address] BEDSIDE GLUCOSE Collected: 05/09/2018 Status: F Source: [place] 8:28 PM [facility] REPOSITORY TYPE CODE TESTS RESULT OUT OF REFERENCE UNITS RANGE LAB L501.080 70-110 mg/dL High BEDSIDE GLU 285 Result Comment: MANAGEMENT OF PATIENT CARE PER NURSING PROTOCOL Performed By: #### L501.080 #### [facility] Point of Care [address] [place] [address] BEDSIDE GLUCOSE Collected: 05/09/2018 Status: F Source: [place] 4:20 PM [facility] REPOSITORY TYPE CODE TESTS RESULT OUT OF REFERENCE UNITS RANGE LAB L501.080 70-110 mg/dL High BEDSIDE GLU 211 Result Comment: MANAGEMENT OF PATIENT CARE PER NURSING PROTOCOL Performed By: #### L501.080 #### [facility] Point of Care [address] [place] [address] BEDSIDE GLUCOSE Collected: 05/09/2018 Status: F Source: [place] 11:58 AM [facility] REPOSITORY TYPE CODE TESTS RESULT OUT OF REFERENCE UNITS RANGE LAB L501.080 70-110 mg/dL High BEDSIDE GLU 281 Result Comment: Insulin Given MANAGEMENT OF PATIENT CARE PER NURSING PROTOCOL Performed By: #### L501.080 #### [facility] Point of Care [address] [place] [address] BASIC METABOLIC Collected: 05/09/2018 Status: F Source: [place] PROFILE (BMP) 7:43 AM [facility] REPOSITORY TYPE CODE TESTS RESULT OUT OF RANGE REFERENCE UNITS LAB L501.0100 74-106 mg/dL High GLU 179 Result Comment: Fasting Glucose result greater than or equal to 126 mg/dL suggests DIABETES MELLITUS per A.D.A. criteria. Please note revised GLUCOSE reference range effective 2017. LAB L501.1000 7-18 mg/dL Normal BUN 15 LAB L501.1100 0.70-1.30 mg/dL Normal CREAT,SERUM 0.86 Result Comment: The validity of the calculated GFR AND GFRAA in patients over 70 years has not been determined. Clinical correlation is essential. LAB L501.1110 >60 mL/min Normal EST GFR 91 Result Comment: Non- GFR Calc LAB L501.1115 >60 mL/min Normal EST GFR - AA 110 Result Comment: GFR Calc LAB L501.1255 ml/min Normal Estimated CRCL 67.38 LAB L501.1300 10-20 RATIO Normal BUN/CRE 17.4 LAB L501.2200 8.5-10 mg/dL Normal .1 CA 8.7 LAB L501.5300 136-14 mmol/L Normal 5 NA 138 LAB L501.5600 3.5-5. mmol/L Normal 1 K 3.9 LAB L501.5900 98-107 mmol/L Normal CL 98 LAB L501.6100 21.0-3 mmol/L Normal 2.0 CO2 29.0 LAB L501.6200 5-15 Normal GAP 11 Performed By: #### L500.2500 #### [facility] [address] [place], [address] CBC W/DIFF, AUTOMATED Collected: 05/09/2018 Status: F Source: [place] 7:43 AM [facility] REPOSITORY TYPE CODE TESTS RESULT OUT OF RANGE REFERENCE UNITS LAB L100.1000 4.4-11.0 K/mm3 Normal WBC 7.7 LAB L100.1200 4.6-6.2 M/mm3 Low RBC 3.87 LAB L100.1300 13.0-16.5 g/dl Low HGB 11.6 LAB L100.1400 40-54 % Low HCT 35.3 LAB L100.1500 80-94 fL Normal MCV 91.2 LAB L100.1600 27.0-32.0 pg Normal MCH 30.0 LAB L100.1700 32-36 g/gl Normal MCHC 32.9 LAB L100.1810 11.6-14.6 % Normal RDW CV 14.5 LAB L100.1820 35.1-43.9 fl High RDW SD 47.7 LAB L100.1900 150-450 K/mm3 Low PLT 125 LAB L100.2000 6.2-12.0 fl Normal MPV 10.3 LAB L100.2100 47-70 % Normal NEUT% 66.0 LAB L100.2200 19-41 % Low LY% 15.6 LAB L100.2300 0-10 % High MONO% 14.2 LAB L100.2400 0-5 % Normal EO% 3.8 LAB L100.2500 0-1 % Normal BASO% 0.3 LAB L100.2550 0.0-0.9 % Normal IM GRAN % 0.100 Result Comment: IG% - Immature Granulocytes (promyelocytes, myelocytes and metamyelocytes) > 1% indicates that a LEFT SHIFT is Present. LAB L100.2620 2.0-7.7 X10 3/uL Normal Absolute Neut 5.1 LAB L100.2720 0.83-4.51 X10 3/ul Normal Absolute Lymph 1.20 Performed By: #### L100.0100 #### [facility] [address] [place] [address], [address] BEDSIDE GLUCOSE Collected: 05/09/2018 Status: F Source: [place] 7:28 AM [facility] REPOSITORY TYPE CODE TESTS RESULT OUT OF REFERENCE UNITS RANGE LAB L501.080 70-110 mg/dL High BEDSIDE GLU 166 Result Comment: MANAGEMENT OF PATIENT CARE PER NURSING PROTOCOL Performed By: #### L501.080 #### [facility] Point of Care [address] [facility] [place], [place] [address] Observed: 05/08/2018 Status: F Source: [place] LEGIONELLA ANTIGEN 10:50 PM [facility] URINE REPOSITORY Legionella, UR Legionella Antigen result interpretation: Negative Presumptive negative for Legionella pneumophila serogroup 1 antigen in urine, suggesting no recent or current infection. Legionella Ag, Urine Negative (See interpretation below) Performed By: #### M300.4500 #### [facility] [address] [place], [address] STREP Observed: 05/08/2018 Status: F Source: [place] PNEUMONIAE ANTIG(UR,CSF) 10:50 PM [facility] REPOSITORY S pneumo Ag [] Negative Urine Presumptive negative for pneumococcal pneumonia, suggesting no current or recent pneumococcal infection. Infection due to S pneumoniae cannot be ruled out since the antigen present in the sample may be below the detection limit of the test. Strep pneumo Test Negative URINE (See interpretation below) Performed By: #### M300.4600 #### [facility] [address] [place], [address] Observed: 05/08/2018 Status: F Source: [place] CULTURE, SPUTUM 10:22 PM [facility] REPOSITORY Gram Stain Acceptable Specimen? Yes (<25 Epithelial cells per/lpf) Gram Stain Rare White Blood Cells Rare Epithelial cells No organisms seen Resp. Culture Mixed normal respiratory mariama. No Haemophilus, Streptococcus pneumoniae or beta-hemolytic Streptococcus isolated. ORGANISM 1: Staphylococcus aureus Amount Growth 1+ Staphylococcus aureus: REACTION Benzylpenicillin NF >=0.5 R Cefoxitin *NF - Clindamycin $$ <=0.25 S Inducable Clindamycin Resistan - Erythromycin $ <=0.25 S Gentamicin $ <=0.5 S Levofloxacin $ <=0.12 S Linezolid $$$$ 2 S Moxifloxicin *NF <=0.25 S Oxacillin NF <=0.25 S Tigecycline $$$$ <=0.12 S Rifampin $$ <=0.5 S Tetracycline NF <=1 S Trimethoprim/Sulfametho $ <=10 S Vancomycin $ 1 S (NF) indicates non-formulary drug at [facility]. Approval by Infectious Disease Specialist required before non-formulary drugs may be ordered and/or dispensed. * CLSI guidelines does not recommend testing of cephalosporins. This interpretation is deduced from Beta-lactam/penicillin results. Performed By: #### M100.0800 #### [facility] [address] [place], [address] BEDSIDE GLUCOSE Collected: 05/08/2018 Status: F Source: [place] 10:09 PM [facility] REPOSITORY TYPE CODE TESTS RESULT OUT OF REFERENCE UNITS RANGE LAB L501.080 70-110 mg/dL High BEDSIDE GLU 227 Result Comment: MANAGEMENT OF PATIENT CARE PER NURSING PROTOCOL Performed By: #### L501.080 #### [facility] Point of Care [address] [place] [address] Observed: 05/08/2018 Status: F Source: [place] RESPIRATORY PANEL 6:46 PM [facility] MOLECULAR REPOSITORY RP PANEL ADENOVIRUS Not Detected HUMAN METAPHNEUMO Not Detected INFLUENZA A Not Detected INFLUENZA A (SUBTYPE H1) Not Detected INFLUENZA A (SUBTYPE H3) Not Detected INFLUENZA B Not Detected PARAINFLUENZA 1 Not Detected PARAINFLUENZA 2 Not Detected PARAINFLUENZA 3 Not Detected PARAINFLUENZA 4 Not Detected RHINOVIRUS Not Detected RSV A Not Detected RSV B Not Detected NAAT METHOD Testing was performed using nucleic acid amplification Performed By: #### M100.638 #### [facility] [address] [place] [address], [address] LACTIC ACID Collected: 05/08/2018 Status: F Source: [place] 6:41 PM [facility] REPOSITORY TYPE CODE TESTS RESULT OUT OF RANGE REFERENCE UNITS LAB L503.6005 0.4-2.0 mmol/L Normal LACTIC ACID 1.8 Performed By: #### L503.6005 #### [facility] [address] [place] [address] EMERGENCY DEPARTMENT Observed: 05/08/2018 Status: F Source: [place] SUMMARY 6:33 PM [facility] REPOSITORY [facility] Medical Records Department [address] [place] [id number] Emergency Department Summary 05/08/18 1305 MR#: [id number] Acct: [id number] Name: SHERWIN HEATH Rep #: [id number] : 1940 78 From: Rodolfo Stanford MD PCP: Flory Pantoja MD Status: ADM IN - ER Visit Summary Date of Service: 05/08/18 Chief Complaint: Cough and shortness of breath History of Present Illness: The patient is a [address] Pantoja and Dr. Pressley. He has a history of pulmonary fibrosis and chronic respiratory failure and is on 4 L of home O2. He reports that he has a cough began approximately 1 week ago. Is productive of bobby/nunez sputum without blood. He has had subjective fever, chills, and cold sweats. Reports he has had a constant chest pressure/tightness for the past week. Zeta 10 at worst. Reports that after having his oxygen increased. He is pain-free. On review of systems patient complains of nausea, but no abdominal pain or vomiting. He had diarrhea 3-4 times a day for the past week. No blood in his stools or black tarry stools. He does complain of generalized weakness. Physical Examination: Vitals: 98.6, 149/79, 81, 27, 95% on 4 L nasal cannula which is his home O2.. General: Well-nourished and well-developed. Head: Normocephalic atraumatic. Neck: Supple, no lymphadenopathy. No JVD. Nontender. Cardiovascular: Regular rate and rhythm. 2 out of 6 systolic murmur. Respiratory: No respiratory distress. Fine crackles throughout bilaterally. Abdominal: Soft, nontender, nondistended, normal bowel sounds. No guarding, rebound, or peritoneal signs. Back: Nontender. Extremities: Nontender, no edema. Skin: Normal color, no rash. Neurologic: Alert and oriented 3. Cranial nerves II through XII are intact. Normal strength and sensation. Psych: Normal affect. Test Results: Chest x-ray is read by the radiologist as CHF. However, in my opinion this is his underlying pulmonary fibrosis and is asymmetric and consistent with a left lower lobe infiltrate. EKG is sinus tachycardia 104 and unchanged from June. Troponin is negative. Lactic acid is 2.2. Chem-7 is more for sodium 135 and glucose 205. CBC is more for an H AND H 12.2 and 36.3, segmented neutrophils 76, lymphs lites of 8, monocytes of 13. Influenza was negative. Emergency Department Course and Treatment: Patient was resting comfortably on his oxygen. He was given Levaquin IV. Treatment Plan: Patient was discussed with Dr. Diop. He will be admitted to the hospital for further evaluation and treatment. Disposition: Admitted in improved condition. Impression: 1. Pulmonary fibrosis. 2. Pneumonia, community-acquired. This note was generated with Speak With Me dictation software. It may contain incorrect words, spelling, and punctuation that were not noted in review of the chart prior to signing ED Disposition - Plan for ED Patient: Chief Complaint: Shortness of Breath Referrals: Jaylon Allison MD [STAFF PHYSICIAN] - What to do if you have Problems For any increased pain, shortness of breath, bleeding, nausea or vomiting, chest pain, or any unexpected problems, contact your Primary Care Provider. Call [facility] ([phone]) or report to the closest Emergency Room. Call 911 if necessary. 05/08/18 1833 <Electronically signed by Rodolfo Stanford MD> Date Rodolfo Stanford MD Cosigner Signature (If Indicated): Date CC: Flory Pantoja MD BEDSIDE GLUCOSE Collected: 05/08/2018 Status: F Source: [place] 5:58 PM [facility] REPOSITORY TYPE CODE TESTS RESULT OUT OF REFERENCE UNITS RANGE LAB L501.080 70-110 mg/dL High BEDSIDE GLU 162 Result Comment: MANAGEMENT OF PATIENT CARE PER NURSING PROTOCOL Performed By: #### L501.080 #### [facility] Point [facility] Care [address] [place] [address] HISTORY AND PHYSICAL Observed: 05/08/2018 Status: F Source: [place] EXAM 4:48 PM [facility] REPOSITORY [facility] Medical Records Department [address] [place] [address] History and Physical 05/08/18 1603 MR#: [id number] Acct: [id number] Name: SHERWIN HEATH Rep #: [id number] : 1940 78 From: Anushka Dickson SET UP AND LAY OUT INSPECTOR-C PCP: Flory Pantoja MD Status: REG ER Y Location: ED ADDENDUM by Jada Diop on 05/08/18 at 1648 Code Visit ATTENDING PHYSICIAN NOTE: I have seen and examined the patient independently and agree with the assessment, plan, history per Anushka Dickson as noted. Chief Complaint: Cough, Productive sputum, Fatigue/Malaise/Weakness, Fever and Chills The patient is a 78 y/o M w/ PMHx: HTN, HLD, Diabetes mellitus type II w/ Neuropathy, Overweight, Hypogonadism, SARAH on qHS CPAP, GERD, CAD without any PCI history, Pulmonary Fibrosis w/ Chronic Hypoxic Respiratory Failure (4L NC) following w/ [employer] [facility] who presents to the [facility] ED on 05/08/18 w/ history of [...] likely fibrotic changes (read as CHF) with suspected LLL infiltrate. In the ED patient administered Levaquin and NS therapy. Labs, Allergies, Home medications, Social Hx, PSurgHx, Family Hx per note below. Admission Review of Systems: CONSTITUTIONAL: No weight loss, + fever, chills, weakness or fatigue. HEENT: Eyes: No visual loss, blurred vision, double vision or yellow sclerae. Ears, Nose, Throat: No hearing loss, sneezing, congestion, runny nose or sore throat. SKIN: No rash or itching, lesions, wounds. CARDIOVASCULAR: No chest pain, chest pressure or chest discomfort, palpitations, edema, orthopnea, syncopal events. RESPIRATORY: + shortness of breath, cough or sputum, No wheezing, hemoptysis. GASTROINTESTINAL: No anorexia, nausea, vomiting or diarrhea, abdominal pain, melena, BRBPR. GENITOURINARY: No dysuria, frequency, urgency or retention. NEUROLOGICAL: + Generalized weakness. No headache, dizziness, syncope, paralysis, ataxia, numbness or tingling in the extremities, focal weakness, change in bowel or bladder control, seizure. MUSCULOSKELETAL: No muscle, back pain, joint pain or stiffness. HEMATOLOGIC: No anemia, bleeding or bruising. LYMPHATICS: No enlarged nodes. No history of splenectomy. PSYCHIATRIC: No history of depression or anxiety. ENDOCRINOLOGIC: No reports of sweating, cold or heat intolerance. No polyuria or polydipsia. ALLERGIES: No history of asthma, hives, eczema or rhinitis. Admission VS: As noted below. Physical Examination: General: awake, alert, oriented x 3 and cooperative, seated upright in the ED bed in no apparent distress, fatigued appearance. Skin: normal color, turgor, no icterus, cyanosis. HEENT: AT/NC, EOMI, PERRLA, MMM, no carotid bruits or JVD noted. Lungs: Diffusely diminished BS, > bases, typical diffuse crinkling/crackles throughout, no wheezing. Heart: Regular rate and rhythm; no gallop, rub audible. Abdomen: soft, overweight, NTTP, ND, normal BS, no HSM. Extremities: no cyanosis, clubbing, BL ankle edema. Neurological: patient awake, alert, oriented x 3; cognitive function intact; pupils equally reactive to light and accomodation; [...] Hypoxic Respiratory Failure (4L NC) following w/ [employer] [facility] who presents to the [facility] ED on 05/08/18 w/ history of [...] likely fibrotic changes (read as CHF) with suspected LLL infiltrate. Will admit to [facility], maintain [...] CPAP q HS. Inpatient E AND M: 13082 Init Hosp L3 05/08/18 1648 <Electronically signed by Jada Diop > Date Jada Diop cc: MARCK-Luis Dickson; Jada Diop; Flory Pantoja MD * Signed Problem List (1) Obstructive sleep apnea of [...] follows with Dr. 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 Pressley. Patient has a past medical history of chronic hypoxic respiratory failure, pulmonary fibrosis, obstructive sleep [...] Allergy (Verified 06/27/17 00:39) Home Medications: Ambulatory Orders [...] underlying pulmonary fibrosis. Negative for influenza. Obtain respiratory [...] 5. Type 2 diabetes mellitus with diabetic srmrixtkus-Gcwi-Bnqkd before meals at bedtime. Continue home Levemir and Humalog regimen. Continue home gabapentin regimen. 6. CAD-continue aspirin, statin. Troponin negative x1 in ER. Patient denies chest pain. 7. Obesity- Encourage diet and lifestyle modifications. Nutrition consult. 8. Depression-continue home Zoloft regimen. 9. Chronic normocytic anemia-stable. DVT prophylaxis-Lovenox sc. This patient was seen by PB Shaffer under the supervision of Dr. Diop. 05/08/18 8069 <Electronically signed by Anushka AMBRIZ> Date Anushka Randolph SET UP AND LAY OUT INSPECTOR-C 05/08/18 1633<Electronically signed by Jada Diop > Cosigner Signature: Date (if applicable) Jada Diop CC: SET UP AND LAY OUT INSPECTOR-C Anushka Dickson; Jada Diop; Flory Pantoja MD Signed Observed: 05/08/2018 Status: F Source: [place] INFLUENZA A+B (RAPID 3:21 PM [facility]) REPOSITORY Has pt arrived? Y FLU A/B Rapid Negative test results should be confirmed by culture. Order Rapid Viral Culture for Influenzae A+B ([id number]) if clinically indicated. Influenza Ag, Direct Presumptive NEGATIVE for Influenza A/B Antigen (See Note) Performed By: #### M101.0101 #### [facility] [place], [address] CBC W/DIFF, AUTOMATED Collected: 05/08/2018 Status: F Source: [place] 2:05 PM [facility] REPOSITORY TYPE CODE TESTS RESULT OUT OF RANGE REFERENCE UNITS LAB L100.1000 4.4-11.0 K/mm3 Normal WBC 9.4 LAB L100.1200 4.6-6.2 M/mm3 Low RBC 4.00 LAB L100.1300 13.0-16.5 g/dl Low HGB 12.2 LAB L100.1400 40-54 % Low HCT 36.3 LAB L100.1500 80-94 fL Normal MCV 90.8 LAB L100.1600 27.0-32.0 pg Normal MCH 30.5 LAB L100.1700 32-36 g/gl Normal MCHC 33.6 LAB L100.1810 11.6-14.6 % Normal RDW CV 14.4 LAB L100.1820 35.1-43.9 fl High RDW SD 47.4 LAB L100.1900 150-450 K/mm3 Low PLT 138 LAB L100.2000 6.2-12.0 fl Normal MPV 10.3 LAB L100.2100 47-70 % High NEUT% 75.9 LAB L100.2200 19-41 % Low LY% 7.9 LAB L100.2300 0-10 % High MONO% 13.1 LAB L100.2400 0-5 % Normal EO% 2.8 LAB L100.2500 0-1 % Normal BASO% 0.2 LAB L100.2550 0.0-0.9 % Normal IM GRAN % 0.100 Result Comment: IG% - Immature Granulocytes (promyelocytes, myelocytes and metamyelocytes) > 1% indicates that a LEFT SHIFT is Present. LAB L100.2620 2.0-7.7 X10 3/uL Normal Absolute Neut 7.1 LAB L100.2720 0.83-4.51 X10 3/ul Low Absolute Lymph 0.74 Performed By: #### L100.0100 #### [facility] [address] [place], [address] BASIC METABOLIC Collected: 05/08/2018 Status: F Source: [place] PROFILE (BMP) 2:05 PM [facility] REPOSITORY TYPE CODE TESTS RESULT OUT OF RANGE REFERENCE UNITS LAB L501.0100 74-106 mg/dL High GLU 205 Result Comment: Glucose result greater than or equal to 200 mg/dL suggests DIABETES MELLITUS per A.D.A. criteria. Please note revised GLUCOSE reference range effective 2017. LAB L501.1000 7-18 mg/dL Normal BUN 16 LAB L501.1100 0.70-1.30 mg/dL Normal CREAT,SERUM 0.93 Result Comment: The validity of the calculated GFR AND GFRAA in patients over 70 years has not been determined. Clinical correlation is essential. LAB L501.1110 >60 mL/min Normal EST GFR 83 Result Comment: Non- GFR Calc LAB L501.1115 >60 mL/min Normal EST GFR - AA 101 Result Comment: GFR Calc LAB L501.1255 ml/min Normal Estimated CRCL 62.31 LAB L501.1300 10-20 RATIO Normal BUN/CRE 17.2 LAB L501.2200 8.5-10 mg/dL Normal .1 CA 8.9 LAB L501.5300 136-14 mmol/L Low 5 NA 135 LAB L501.5600 3.5-5. mmol/L Normal 1 K 4.3 LAB L501.5900 98-107 mmol/L Normal CL 98 LAB L501.6100 21.0-3 mmol/L Normal 2.0 CO2 29.0 LAB L501.6200 5-15 Normal GAP 8 Performed By: #### L500.2500, L501.4010 #### [facility] [address] [place], [place], [address] TROPONIN-I Collected: 05/08/2018 Status: F Source: [place] 2:05 [facility] [place] TYPE CODE TESTS RESULT OUT OF RANGE REFERENCE UNITS LAB L501.4010 <0.045 ng/mL Normal < 0.015 TROPONIN-I Result Comment: TROPONIN-I EXPECTED VALUES <0.045 Negative 0.045 - 0.590 Consistent with Cardiac Damage > OR = 0.600 Critical Value Not every elevated troponin is indicative of AR. These values should be used with clinical judgement in examining the patient's clinical picture for diagnosis. To establish a diagnosis of AR versus myocardial injury, there must be a demonstrated rise and/or fall in the troponin values, in addition to ischemic symptoms, EKG changes, new regional wall motion abnormality, and/or angiographical evidence. PLEASE NOTE: REFERENCE RANGES EDITED 17 Performed By: #### L500.2500, L501.4010 #### [facility] [address] [place], [place], [address] LACTIC ACID Collected: 05/08/2018 Status: F Source: [place] 2:05 [facility] [place] Order Comment: Yes/No query for Sepsis Lactate Rule Y TYPE CODE TESTS RESULT OUT OF REFERENCE UNITS RANGE LAB L503.6005 0.4-2.0 mmol/L High LACTIC ACID 2.2 Result Comment: Critical Result(s) Called at: 14:48:04 05/08/2018 by: Baudilio Martinez RN Performed By: #### L503.6005 #### [facility] [address] [place], [place], [address] MAGNESIUM Collected: 05/08/2018 Status: F Source: [place] 2:05 PM [facility] REPOSITORY TYPE CODE TESTS RESULT OUT OF RANGE REFERENCE UNITS LAB L501.5200 1.6-2.6 mg/dL Normal MG 1.9 Performed By: #### L501.5200 #### [facility] [address] [place], [address] Observed: 05/08/2018 Status: F Source: [place] CULTURE, BLOOD (WB) 2:05 PM [facility] REPOSITORY BC No growth in 5 days. Performed By: #### M200.1000 #### [facility] [address] [place], [address] Observed: 05/08/2018 Status: F Source: [place] CULTURE, BLOOD (WB) 2:00 PM [facility] REPOSITORY BC No growth in 5 days. Performed By: #### M200.1000 #### [facility] [address] [place], [place], [address] CHEST PA AND LATERAL Observed: 05/08/2018 Status: F Source: [place] 1:23 PM [facility] REPOSITORY [facility] Imaging Services [address] [place] [address] Chest PA and Lateral MR#: [id number] Acct: [id number] Name: Sherwin Heath Rep #: [id number] : 1940 M 78 From: Saad Berry MD PCP: Flory Pantoja MD Status: [facility] ER Study: Chest PA and Lateral Date of Exam: 05/08/18 Exam# [id number] Ordering Dr: Rodolfo Stanford MD STUDY: X-RAY CHEST REASON FOR EXAM: Male, 78 years old. Cough. TECHNIQUE: AP and lateral views of the chest. COMPARISON: Comparison is made with prior examination dated July 01, 2017. FINDINGS: EKG electrode are seen. There is evidence of vascular congestion and CHF. There is no demonstrated pleural abnormality. There is severe cardiac enlargement. Normal mediastinum and torrey. Normal visualized pulmonary arteries. There is atherosclerotic calcification of the aortic arch with tortuosity. There are diffuse degenerative changes of the visualized thoracic spine. Mild loss of height of mid dorsal vertebrae. Normal visualized ribs, clavicles, and shoulders. There is no demonstrated abnormality of the visualized soft tissue structures of the upper abdomen. RAD/Chest PA and Lateral IMPRESSION: Cardiomegaly and CHF. Electronically Signed: Saad Berry MD at 14:48 EST Tel [phone], Service support , CC: Flory Pantoja MD; Rodolfo Stanford MD Fibrous Wallboard Inspector: Signed CBC WITH DIFF EAST Collected: 05/01/2018 Status: F Source: [facility] 5:[address] [facility] REPOSITORY TYPE CODE TESTS RESULT OUT OF REFERENCE UNITS RANGE LAB WBC 4.23-9.07 K/uL WBC Count 9.00 LAB RBC 4.63-6.08 M/uL RBC Count 4.22 Low LAB HGB 13.7-17.5 g/dL Hemoglobin 13.0 Low LAB HCT 40.1-51.0 % Hematocrit 38.3 Low LAB MCV 79.0-92.2 fL Mean Cell 90.8 Volume LAB MCH 25.7-32.2 pg Mean Cell 30.8 Hgb LAB MCHC 32.3-36.5 g/dL Mean Cell 33.9 Hgb Conc LAB RDW 11.6-14.4 % RBC 13.7 Distribution LAB PLT 163-337 K/uL Platelet 131 Low Count LAB MPV 9.4-12.4 fL Mean NOT Platelet Volume MEASURED LAB NRBC 0.0-0.2 /100 WBC NUCLEATED 0.0 RBC LAB DTYPE Electronic DIFFERENTIAL TYPE Differential LAB IGRE % IMMATURE 0.4 GRANS % LAB SEGS % NEUTROPHIL 66.2 SEGMENTED LAB LYM % LYMPHOCYTE 16.8 % LAB MON % MONOCYTE % 13.0 LAB EOS % EOSINOPHIL 3.0 % LAB BASO % BASOPHIL % 0.6 LAB IGABS <0.04 K/uL IMMATURE 0.04 High GRANS ABSOLUTE LAB SBANS 1.78-5.38 K/uL SEGS + 5.96 High Bands,Absolute LAB ALYM 1.32-3.57 K/uL Abs Lymph 1.51 LAB AMONO 0.30-0.82 K/uL Abs Hudspeth 1.17 High LAB AEOS <0.55 K/uL Abs Eos 0.27 LAB ABASO <0.09 K/uL Abs Baso 0.05 Performed By: #### DARRIN JENSEN TSHE #### [address] [address] COMP METABOLIC PANEL - Collected: 05/01/2018 Status: F Source: [facility] 5:[address] [facility] REPOSITORY TYPE CODE TESTS RESULT OUT OF REFERENCE UNITS RANGE LAB NA 133-143 mmol/L Sodium 138 LAB K 3.5-5.0 mmol/L Potassium 4.7 LAB CL 98-108 mmol/L Chloride 100 LAB BUN 7-22 mg/dL BUN 19 LAB CREA 0.70-1.30 mg/dL Creatinine 0.84 LAB GLUC 70-99 mg/dL Glucose High 171 LAB BILT <1.5 mg/dL Bilirubin Total 1.0 LAB ALB 3.5-5.0 g/dL Albumin 4.0 LAB TP 6.4-8.3 g/dL Total Protein 7.7 LAB AST 14-40 U/L AST High 50 LAB ALP 32-126 U/L Alkaline Phosphatase 65 LAB CA 8.6-10.5 mg/dL Calcium 9.6 LAB OSMC 278-305 mOsm/kg Osmolality (Calc) 297 LAB BC BUN/CREA Ratio 23 LAB CO2 22-30 mmol/L Carbon Dioxide 28 LAB ALT 10-52 U/L ALT 24 LAB GFR >60 mL/min/1.7 3sqM Est GFR,non >60 LAB GFRA >60 mL/min/1.7 3sqM Est GFR, >60 LAB GAP 7-17 mmol/L Anion Gap 15 Performed By: #### DARRIN JENSEN TSHE #### [address] [address] TSH -E Collected: 05/01/2018 Status: F Source: [facility] 5:[address] [facility] REPOSITORY TYPE CODE TESTS RESULT OUT OF REFERENCE UNITS RANGE LAB TSH 0.550-4.780 uIU/mL TSH, High Sensitivity 0.711 Performed By: #### CBCDFE, DARRIN, [facility] #### [place] [address] XR HANDS-RHEUMATOLOGY EVAL Observed: 05/01/2018 Status: F Source: [facility] ONLY 1:[address] [facility] REPOSITORY EXAM: XR HANDS-RHEUMATOLOGY EVAL ONLY, 05/01/2018 13:18 PM COMPARISON: December 22, 2015. 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 No erosions or pathologic calcifications. Bone density is slightly diminished. Right hand, 2 views: The ring finger is flexed at the PIP joint. There is narrowing of the IP joints of the fingers and thumb, first through third MCP joint and first CMC joint as well as lateral aspect of the radiocarpal joint. No erosions or pathologic calcifications. Bone density slightly diminished. IMPRESSION: Findings are most compatible with osteoarthritis. RGIES ALLERGIES DATE TYPE / CODE NAME / CODE REACTION SEVERITY SOURCE 07/16/2018 Drug No Known Unknown [facility] Allergy/4160 Allergies/F00 [facility] [address](SNOMED 7358624(RXNOR Repository CT) M) ENCOUNTERS ENCOUNTERS ADMIT/DISCHARGE ACCOUNT NUMBER ADMITTING ENCOUNTER LOCATION SOURCE CLASS 07/16/2018/07/21/19 [id number] [place], Inpatient [place] 19 [place]ina Encounter [facility] ding:PCURoom Repository : PAT052Nlj: 1 07/16/2018 [id number] [place]i, Ambulatory BMSBuilding: [place] BMS.[facility] Repository 07/16/2018 [id number] [place], Ambulatory BMSBuilding: [place] BMS.[facility] Repository 07/16/2018 [id number] [place], Ambulatory BMSBuilding: [place] BMS.CF.[facility] Repository 07/16/2018 [id number] [place]i, Ambulatory BMSBuilding: [place] BMS.CF.[facility] Repository 07/16/2018 [id number] [place]i, Ambulatory BMSBuilding: [place] BMS.[facility] Repository 07/16/2018 [id number] [place]i, Ambulatory BMSBuilding: [place] BMS.CF.[facility] Repository 07/16/2018 [id number] S[place]i, Ambulatory BMSBuilding: [place] BMS.[facility] Repository 07/16/2018 [id number] [place]i, Ambulatory BMSBuilding: [place] BMS.[facility] Repository 07/16/2018 [id number] [place]i, Ambulatory BMSBuilding: [place] BMS.[facility] Repository 07/13/2018 [id number] Ambulatory [facility] ding:LAB Repository 07/10/[id number] [facility] ding:RAD.FUT Repository URE 07/02/2018 [id number] Ambulatory [facility] ding:LABSPEC Repository 06/30/2018 [id number] Ambulatory [facility] ding:HHLAB Repository 06/19/2018 [id number] Ambulatory Building:[facility] Practices Repository 06/08/2018 [id number] Ambulatory [facility] ding:LABSPEC Repository 06/01/2018/06/01/20 [id number] Ambulatory [address] ding:HHLAB Repository 05/08/2018/05/15/20 [id number] [place], Inpatient [place] [facility] ding:UP8Iaus Repository : [id number]: 1 05/08/2018 [id number] [place], Ambulatory BMSBuilding: [place] BMS.[facility] Repository 05/08/2018 [id number] [place], Ambulatory BMSBuilding: [place] BMS.[facility] Repository 05/08/2018 [id number] [place], Ambulatory BMSBuilding: [place] BMS.[facility] Repository 05/08/2018 [id number] [place], Ambulatory BMSBuilding: [place] BMS.[facility] Repository 05/08/2018 [id number] [place], Ambulatory BMSBuilding: [place] BMS.[facility] Repository 05/08/2018 [id number] White, Ambulatory BMSBuilding: [place] BMS.[facility] Repository 05/08/2018 [id number] White, Ambulatory BMSBuilding: [place] BMS.[facility] Repository 05/08/2018/05/15/20 [id number] Ambulatory BMSBuilding: [place] [facility] Repository 05/08/2018 [id number] Ambulatory BMSBuilding: [place] BMS.[facility] Repository 05/01/2018 [id number] [facility] 05/01/2018 [id number] Ambulatory Building:[facility] Repository 05/01/2018 [id number] Ambulatory Building:[facility] Repository 05/01/2018 [id number] Ambulatory Building:[facility] Repository 05/01/2018 [id number] Ambulatory Building:[facility] Repository 05/01/2018 [id number] Ambulatory Building:[facility] Repository PAYERS PAYERS ENCOUNTER GUARANTOR PAYER SUBSCRIBER SOURCE 07/16/2018 SHERWIN P Primary SHERWIN P [place] [id number] Insurance:MEDICARE KOVACSDOB: [facility] [id number] Number: Repository [address]Fcn: 330 [id number] [phone] () Date:2018-07-16 07/16/2018 Secondary NOT GIVENUNK [place] Insurance:SELF PAY [facility] Number: Effective Repository Date:2018-07-16 07/16/2018 SHERWIN P Primary SHERWIN P [place] [id number] Insurance:MEDICARE KOVACSDOB: [facility] [id number] Number: Repository [address]Zdu: 330 [id number] [phone] (HP) Date:2018-07-16 07/16/2018 Secondary NOT GIVENUNK [place] Insurance[facility] Number: Effective Repository Date:2018-07-16 07/16/2018 SHERWIN P Primary SHERWIN P [place] [id number] Insurance:MEDICARE KOVACTXOB: [facility] [id number] Number: Repository [address]Zpg: 330 [id number] [phone] () Date:2018-07-16 07/16/2018 Secondary NOT GIVENUNK [place] Insurance:SELF PAY [facility] Number: Effective Repository Date:2018-07-16 07/16/2018 SHERWIN P Primary SHERWIN P [place] [id number] Insurance:MEDICARE KOVACTXOB: [facility] [id number] [place] Number: Repository [id number]: (330 [id number] [phone] () Date:2018-07-16 07/16/2018 Secondary NOT GIVENUNK [place] Insurance:SELF PAY [facility] Number: Effective Repository Date:2018-07-16 07/16/2018 SHERWIN P Primary SHERWIN P [place] [id number] Insurance:MEDICARE KOVACSDOB: [facility] [id number] [place] Number: Repository [id number]: (330 [id number] [phone] () Date:2018-07-16 07/16/2018 Secondary NOT GIVENUNK [place] Insurance:SELF PAY [facility] Number: Effective Repository Date:2018-07-16 07/16/2018 SHERWIN P Primary SHERWIN P [place] [id number] Insurance:MEDICARE KOVACSDOB: [facility] [id number] Number: Repository [address]Ove: 330 [id number] [phone] () Date:2018-07-16 07/16/2018 Secondary NOT GIVENUNK [place] Insurance:SELF [facility]Y [facility] Number: Effective Repository Date:2018-07-16 07/16/2018 SHERWIN P Primary SHERWIN P [place] [id number] Insurance:MEDICARE KOVACSDOB: [facility] [id number] Number: Repository [id number]: 330 [id number] [phone] () Date:2018-07-16 07/16/2018 Secondary NOT GIVENUNK [place] Insurance:SELF PAY [facility] Number: Effective Repository Date:2018-07-16 07/16/2018 SHERWIN P Primary SHERWIN P [place] [id number] Insurance:MEDICARE KOVACTXOB: [facility] [id number] Number: Repository [address]Vak: 330 [id number] [phone] () Date:2018-07-16 07/16/2018 Secondary NOT GIVENUNK [place] Insurance:SELF PAY [facility] Number: Effective Repository Date:2018-07-16 07/16/2018 SHERWIN P Primary SHERWIN P [place] [id number] Insurance:MEDICARE KOVACTXOB: [facility] [id number] Number: Repository [address]Bzo: 330 [id number] [phone] () Date:2018-07-16 07/16/2018 Secondary [place] GIVENUNK [place] Insurance:SELF PAY [facility] Number: Effective Repository Date:2018-07-16 07/16/2018 SHERWIN P Primary SHERWIN P [place] [id number] Insurance:MEDICARE KOVACSDOB: [facility] [id number] Number: Repository [address]Qjf: 330 [id number] [phone] () Date:2018-07-16 07/16/2018 Secondary NOT GIVENUNK [place] Insurance:SELF PAY [facility] Number: Effective Repository Date:2018-07-16 07/13/2018 SHERWIN P Primary SHERWIN P [place] [id number] Insurance:MEDICARE KOVACSDOB: [facility] PART A [facility] [id number] [address] Number: Repository [address]Fxp: 330 [id number] [phone] () Date:2018-07-13 07/13/2018 Secondary NOT GIVENUNK [place] Insurance:SELF PAY [facility] Number: Effective Repository Date:2018-07-13 07/10/2018 SHERWIN P Primary SHERWIN P [place] [id number] Insurance:MEDICARE KOVACSDOB: [facility] PART A [facility] [id number] [address] Number: Repository [address]Frj: 330 [id number] [phone] () Date:2018-07-10 07/10/2018 Secondary NOT GIVENUNK [place] Insurance:SELF PAY [facility] Number: Effective Repository Date:2018-07-10 07/02/2018 SHERWIN P Primary SHERWIN P [place] [id number] Insurance:MEDICARE KOVACSDOB: [facility] [id number] [address] Number: Repository [address]Zjq: 330 [id number] [phone] () Date:2018-07-02 07/02/2018 Secondary NOT GIVENUNK [place] Insurance:SELF PAY [facility] Number: Effective Repository Date:2018-07-02 06/30/2018 SHERWIN P Primary SHERWIN P [place] [id number] Insurance:MEDICARE KOVACSDOB: [facility] PART A [facility] [id number] [address] Number: Repository [address]Xun: 330 [id number] [phone] () Date:2018-06-01 06/30/2018 Secondary NOT GIVENUNK [place] Insurance:SELF PAY [facility] Number: Effective Repository Date:2018-06-29 06/19/2018 SHERWIN Primary SHERWIN [facility] KOVACSDOB: Insurance:MedicarePol KOVACSDOB: Repository [id number] icy Number: [id number] [facility] [id number] [address] [place] [address] [address], [place] Date:7956-84-00Pdch [address], [phone]: (251) Name:[place] [address]Rtl: [phone] (HP) [id number], [place] [address]TP: [phone] (HP) [phone] 06/08/2018 SHERWIN P Primary SHERWIN P [place] [id number] Insurance:MEDICARE KOVACSDOB: [facility] [id number] [address] Number: Repository [address]Ywc: 330 [id number] [phone] () Date:2018-06-08 06/08/2018 Secondary NOT GIVENUNK [place] Insurance:SELF PAY [facility] Number: Effective Repository Date:2018-06-08 06/01/2018 SHERWIN P Primary SHERWIN P [place] [id number] Insurance:MEDICARE KOVACSDOB: [facility] [id number] [address] Number: Repository [address]Alm: 330 [id number] [phone] () Date:2018-06-01 06/01/2018 Secondary NOT GIVENUNK [place] Insurance:SELF PAY [facility] Number: Effective Repository Date:2018-06-01 05/08/2018 SHERWIN P Primary SHERWIN P [place] [id number] Insurance:MEDICARE KOVACSDOB: [facility] [id number] [address] Number: Repository [address]Nzp: 330 [id number] [phone] () Date:2018-05-08 05/08/2018 Secondary NOT GIVENUNK [place] Insurance:SELF PAY [facility] Number: Effective Repository Date:2018-05-08 05/08/2018 SHERWIN P Primary SHERWIN P [place] [id number] Insurance:MEDICARE KOVACSDOB: [facility] [id number] Number: Repository [address]Efm: 330 [id number] [phone] () Date:2018-05-08 05/08/2018 Secondary NOT GIVENUNK [place] Insurance:SELF PAY [facility] Number: Effective Repository Date:2018-05-08 05/08/2018 SHERWIN P Primary SHERWIN P [place] [id number] Insurance:MEDICARE KOVACTXOB: [facility] [id number] Number: Repository [address]Fnm: 330 [id number] [phone] () Date:2018-05-08 05/08/2018 Secondary NOT GIVENUNK [place] Insurance:SELF PAY [facility] Number: Effective Repository Date:2018-05-08 05/08/2018 SHERWIN P Primary SHERWIN P [place] [id number] Insurance:MEDICARE KOVACSDOB: [facility] [id number] Number: Repository [address]Qnc: 330 [id number] [phone] () Date:2018-05-08 05/08/2018 Secondary NOT GIVENUNK [place] Insurance:SELF PAY [facility] Number: Effective Repository Date:2018-05-08 05/08/2018 SHERWIN P Primary SHERWIN P [place] [id number] Insurance:MEDICARE KOVACSDOB: [facility] [id number] [place] Number: Repository [address]Mwu: 330 [id number] [phone] () Date:2018-05-08 05/08/2018 Secondary NOT GIVENUNK [place] Insurance:SELF PAY [facility] Number: Effective Repository Date:2018-05-08 05/08/2018 SHERWIN P Primary SHERWIN P [place] [id number] Insurance:MEDICARE KOVACSDOB: [facility] [id number] Number: Repository [address]Adu: 330 [id number] [phone] () Date:2018-05-08 05/08/2018 Secondary NOT GIVENUNK [place] [facility] Number[facility] Effective Repository Date:2018-05-08 05/08/2018 SHERWIN P Primary SHERWIN P [place] [id number] Insurance:MEDICARE KOVACSDOB: [facility] [id number] [address] Number: Repository [address]Yvv: 330 [id number] [phone] () Date:2018-05-08 05/08/2018 Secondary NOT GIVENUNK [place] Insurance:SELF PAY [facility] Number: Effective Repository Date:2018-05-08 05/08/2018 SHERWIN P Primary SHERWIN P [place] [id number] Insurance:MEDICARE KOVACSDOB: [facility] [id number] [address] Number: Repository [address]Hmu: 330 [id number] [phone] () Date:2018-05-08 05/08/2018 Secondary NOT GIVENUNK [place] Insurance:SELF PAY [facility] Number: Effective Repository Date:2018-05-08 05/08/2018 SHERWIN P Primary SHERWIN P [place] [id number] Insurance:MEDICARE KOVACSDOB: [facility] [id number] Number: Repository [address]Dyv: 330 [id number] [phone] () Date:2018-05-08 05/08/2018 Secondary NOT GIVENUNK [place] Insurance:SELF PAY [facility] Number: Effective Repository Date:2018-05-08 05/08/2018 SHERWIN P Primary SHERWIN P [place] [id number] Insurance:MEDICARE KOVACSDOB: [facility] [id number] Number: Repository [address]Eyb: 330 [id number] [phone] () Date:2018-05-08 05/08/2018 Secondary NOT GIVENUNK [place] Insurance:SELF PAY [facility] Number: Effective Repository Date:2018-05-08 05/01/2018 SHERWIN P Primary SHERWIN P [place] KOVACSDOB: Insurance:MEDICARE A KOVACSDOB: [place] [id number] AND BPolicy Number: [id number] [facility] [address] [id number] [address] Date:Plan Name:[address] Repository [address]Elp: [phone]: (HP) [phone] (HP) 05/01/2018 SHERWIN P Primary SHERWIN P [facility] KOVACSDOB: Insurance:MEDICARE A KOVACSDOB: [place] [id number] AND BPolicy Number: [id number] [facility] [address] [id number] [address] Date:Plan Name:[address] Repository [address]Npz: [phone]: (HP) [phone] (HP) 05/01/2018 SHERWIN P Primary SHERWIN P [facility] KOVACSDOB: Insurance:[facility] [place] [id number] AND BPolicy Number: [id number] [facility] [address] [id number] [address] Date:Plan Name:[address] Repository [address]Ccc: [phone]: (HP) [phone] (HP) 05/01/2018 SHERWIN P Primary SHERWIN P [facility] KOVACSDOB: Insurance:MEDICARE A KOVACSDOB: [place] [id number] AND BPolicy Number: [id number] [facility] [address] [id number] [address] Date:Plan Name:[address] Repository [address]Krl: [phone]: (HP) [phone] (HP) 05/01/2018 SHERWIN P Primary SHERWIN P [facility] KOVACSDOB: Insurance:MEDICARE A KOVACSDOB: [place] [id number] AND BPolicy Number: [id number] [facility] [address] [id number] [address] Date:Plan Name:CARE [address] Repository [address]Qgl: [phone]: (HP) [phone] () 05/01/[address] [facility] SHERWIN [place] [facility] KOVACSDOB: Insurance:MEDICARE A KOVACSDOB: [place] [id number] AND BPolicy Number: [id number] [facility] [address] [id number] [address] Date:Plan Name:CARE [address] Repository [address]Twd: [phone]: (HP) [phone] ()
== END 2018-07-21 16:05 | DRG 871 ==
LOC: ED 13:51 → PCU 16:11 → ICU 07-17 00:01 → PCU 07-18 21:06
PROVIDERS: Admitting Provider Internal Medicine; Emergency Provider Emergency Medicine; Family Provider Internal Medicine; PCP Internal Medicine; Referring Provider Internal Medicine Pulmonary Disease; Visit Provider Internal Medicine
DX: A41.53 Sepsis due to Serratia (principal); J96.21 Acute and chronic respiratory failure with hypoxia; I50.33 Acute on chronic diastolic (congestive) heart failure; N30.90 Cystitis, unspecified without hematuria; D69.6 Thrombocytopenia, unspecified; G47.33 Obstructive sleep apnea (adult) (pediatric); Z99.81 Dependence on supplemental oxygen; E66.01 Morbid (severe) obesity due to excess calories; E11.40 Type 2 diabetes mellitus with diabetic neuropathy, unspecified; I25.10 Atherosclerotic heart disease of native coronary artery without angina pectoris; D64.9 Anemia, unspecified; E11.65 Type 2 diabetes mellitus with hyperglycemia; E78.5 Hyperlipidemia, unspecified; I27.20 Pulmonary hypertension, unspecified; K21.9 Gastro-esophageal reflux disease without esophagitis; R32 Unspecified urinary incontinence; J84.10 Pulmonary fibrosis, unspecified; I11.0 Hypertensive heart disease with heart failure; I07.1 Rheumatic tricuspid insufficiency; N40.1 Benign prostatic hyperplasia with lower urinary tract symptoms; R33.8 Other retention of urine; Z79.4 Long term (current) use of insulin; Z79.52 Long term (current) use of systemic steroids; Z87.891 Personal history of nicotine dependence; Z68.36 Body mass index [BMI] 36.0-36.9, adult; S01.01XA Laceration without foreign body of scalp, initial encounter; W01.198A Fall on same level from slipping, tripping and stumbling with subsequent striking against other object, initial encounter; Y92.022 Bathroom in mobile home as the place of occurrence of the external cause; S80.212A Abrasion, left knee, initial encounter
CPT/HCPCS: 36415; 51702; 70450; 71045; 72125; 80048; 80053; 81001; 82962; 83036; 83605; 83735; 83880; 84100; 84484; 85025; 85652; 86140; 87040; 87070; 87077; 87086; 87088; 87186; 87205; 87493; 87633; 93005; 94002; 94003; 94640; 94660; 97110; 97162; 97165; 99285; J7030; J7040; A4216; J0744; J1940; J2405; J2930

== ENCOUNTER → 2018-08-08 18:00 | Outpatient (CLI) | payer SELFPAY ==
[2018-08-08 18:04] LABS: Mucous, Urine 0 SEEN /hpf (<or=2+); Squamous Epithelial Cells - UA 0 SEEN /hpf (0-5)
[2018-08-08 18:07] LABS: Color, Urine Yellow (Yellow); Glucose, Dipstick Normal (Normal); Ketone-Dipstick Negative (Negative); Leukocyte Esterase-Dipstick 500 /ul (Negative); Nitrite-Dipstick Positive (Negative); Occult Blood-Urine 150 /ul (Negative); Protein-Dipstick 30 mg/dl (Negative); Urine Bilirubin Dipstick Negative (Negative); Urine Clarity Sl. Cloudy (Clear); Urine Urobilinogen Normal (Normal)
[2018-08-08 18:09] LABS: Absolute Lymphocyte Count 0.72 X10^3/ul (0.83-4.51); Absolute Neutrophil Count 9.7 X10^3/uL (2.0-7.7); Basophil# 0.02 X10^3/uL; Basophil% 0.2 % (0-1); Eosinophil# 0.24 X10^3/uL; Eosinophils% 2.1 % (0-5); Hemoglobin 10.4 g/dl (13.0-16.5); Lymphocyte # 0.72 X10^3/ul (4.0); Lymphocyte % 6.4 % (19-41); Mean Corp Hgb Conc 31.5 g/gl (32-36); Mean Corpuscular Hgb 30.5 pg (27.0-32.0); Mean Corpuscular Volume 96.8 fL (80-94); Mean Platelet Vol. 10.4 fl (6.2-12.0); Monocyte# 0.61 X10^3/uL; Monocyte% 5.4 % (0-10); Neutrophil # 9.65 X10^3/uL (2.7-7.7); Neutrophil % 85.3 % (47-70); POSITIVE COUNT NO; POSITIVE DIFFERENTIAL NO; POSITIVE MORPHOLOGY NO; Platelet Count 115 K/mm3 (150-450); RBC Distribution Width CV 15.9 % (11.6-14.6); RBC Distribution Width SD 55.7 fl (35.1-43.9); Red Blood Count 3.41 M/mm3 (4.6-6.2); White Blood Count 11.3 K/mm3 (4.4-11.0)
[2018-08-08 18:23] LABS: ALB/GLOB Ratio 0.8 RATIO (0.9-2.4); AST(SGOT) 28 U/L (15-37); Alanine Aminotransfer ALT/SGPT 34 U/L (16-61); Alkaline Phosphatase 81 U/L (45-117); Anion Gap 6 (5-15); BUN 19 mg/dL (7-18); BUN/Creat Ratio 22.8 RATIO (10-20); Calcium,Total 8.8 mg/dL (8.5-10.1); Chloride 100 mmol/L (98-107); Creatinine, Serum 0.84 mg/dL (0.70-1.30); EST Glomerular Filtration Rate 94 mL/min (>60); Est Glom Filt Rate - Afr Amer 114 mL/min (>60); Globulin 3.9 g/dL (2.2-4.2); Glucose 146 mg/dL (74-106); Potassium 4.1 mmol/L (3.5-5.1); Protein, Total 6.9 g/dL (6.4-8.2); Sodium Level 140 mmol/L (136-145)
[2018-08-08 18:58] LABS: Bacteria 1+ /hpf (None Seen); Red Blood Cells-Urine 0-5 SEEN /hpf (0-5); White Blood Cells >100 SEEN /hpf (0-5)
== END ==
LOC: HH 18:01
PROVIDERS: Family Provider Internal Medicine; PCP Internal Medicine; Visit Provider Internal Medicine
DX: E11.9 Type 2 diabetes mellitus without complications (principal); N39.0 Urinary tract infection, site not specified
CPT/HCPCS: 80053; 81001; 85025; 87077; 87086; 87088; 87186

== ENCOUNTER 2018-08-09 18:12 | Emergency (ER) | payer MEDICARE, SELFPAY ==
[2018-08-09 18:13] VITALS: BP 135/87; PULSE 111; RESP 18; TEMP 36.6; O2SAT 99; BMI 37.7
[2018-08-09 18:32] LABS: Bedside Glucose 112 mg/dL (70-110)
--- NOTE | 2018-08-09 18:43 | EKG12_ITS ---
Test Reason : HYPOGLYCEMIA Blood Pressure : / mmHG Vent. Rate : 109 BPM Atrial Rate : 109 BPM P-R Int : 164 ms QRS Dur : 072 ms QT Int : 298 ms P-R-T Axes : 015 001 009 degrees QTc Int : 401 ms Sinus tachycardia Inferior infarct , age undetermined Anterior infarct , age undetermined Abnormal ECG Confirmed by SHANICE SALDANA, JOEL ([id number]), script editor AMALIA RUIZ ([id number]) on 08/14/2018 8:54:39 AM Referred By: DC Confirmed By:JOEL PRASAD MD
--- NOTE | 2018-08-09 18:43 | RAD_ITS ---
STUDY: X-RAY CHEST REASON FOR EXAM: Male, 78 years old. Increased shortness of breath TECHNIQUE: Single AP portable view of the chest. COMPARISON: 07/21/2018 FINDINGS: Lungs are again noted to be hypoinflated. As compared to the most recent prior exam, decreased overall diffuse pulmonary edema and vascular congestion. Residual remains. No focal consolidation. There is mild cardiac enlargement. Normal mediastinum and torrey. Normal visualized pulmonary arteries. Normal visualized aortic arch and descending thoracic aorta. Normal visualized thoracic spine. Normal visualized ribs, clavicles, and shoulders. There is no demonstrated abnormality of the visualized soft tissue structures of the upper abdomen. RAD/Chest 1 View (Portable) IMPRESSION: As compared to the most recent prior exam. Significant decrease in diffuse pulmonary edema. Residual remains. No focal consolidation. Electronically Signed: Juliano Enrique DO at 19:13 EST Tel , Service support ,
[2018-08-09 19:17] VITALS: O2SAT 100
[2018-08-09 19:18] LABS: Absolute Lymphocyte Count 0.52 X10^3/ul (0.83-4.51); Absolute Neutrophil Count 7.4 X10^3/uL (2.0-7.7); Basophil# 0.01 X10^3/uL; Basophil% 0.1 % (0-1); Eosinophil# 0.12 X10^3/uL; Eosinophils% 1.3 % (0-5); Hematocrit 29.9 % (40-54); Hemoglobin 9.5 g/dl (13.0-16.5); Lymphocyte # 0.52 X10^3/ul (4.0); Lymphocyte % 5.8 % (19-41); Mean Corp Hgb Conc 31.8 g/gl (32-36); Mean Corpuscular Hgb 30.3 pg (27.0-32.0); Mean Corpuscular Volume 95.2 fL (80-94); Mean Platelet Vol. 9.5 fl (6.2-12.0); Monocyte# 0.85 X10^3/uL; Monocyte% 9.5 % (0-10); Neutrophil # 7.36 X10^3/uL (2.7-7.7); Neutrophil % 82.4 % (47-70); Platelet Count 96 K/mm3 (150-450); RBC Distribution Width CV 16.2 % (11.6-14.6); RBC Distribution Width SD 55.8 fl (35.1-43.9); Red Blood Count 3.14 M/mm3 (4.6-6.2); White Blood Count 8.9 K/mm3 (4.4-11.0)
[2018-08-09 19:19] LABS: Differential Indicated SCAN CRITERIA MET; POSITIVE COUNT NO; POSITIVE DIFFERENTIAL YES; POSITIVE MORPHOLOGY NO
[2018-08-09 19:34] LABS: Anion Gap 9 (5-15); BUN 15 mg/dL (7-18); Calcium,Total 8.7 mg/dL (8.5-10.1); Chloride 102 mmol/L (98-107); Creatinine, Serum 0.88 mg/dL (0.70-1.30); EST Glomerular Filtration Rate 89 mL/min (>60); Est Glom Filt Rate - Afr Amer 107 mL/min (>60); Estimated Creatinine Clearance 65.85 ml/min; Glucose 100 mg/dL (74-106); Potassium 4.2 mmol/L (3.5-5.1); Sodium Level 144 mmol/L (136-145)
[2018-08-09 19:40] LABS: Differential Comment SCANNED
[2018-08-09 20:14] LABS: BNP,B-Type NATRIURETIC PEPTIDE 55.5 pg/mL (0-100)
[2018-08-09 20:16] VITALS: BP 113/65; PULSE 108; RESP 26; O2SAT 99
[2018-08-09 22:25] VITALS: BP 119/42; PULSE 104; RESP 30; O2SAT 96
[2018-08-09 22:32] LABS: Bedside Glucose 169 mg/dL (70-110)
--- NOTE | 2018-08-09 22:41 | ED.DCSUM_ITS ---
- ER Visit Summary Date of Service: 08/09/18 Chief Complaint: Hypoglycemia History of Present Illness: The patient is a 78 M who presents from home by EMS. He received the wrong insulin from his home health aide. He received 30 units of the quick acting insulin instead of his long-acting insulin. He received oral glucose from EMS. On arrival here, his GGT is normal. Patient does report some cough and wheezing. He has these symptoms frequently. He has a history of pulmonary hypertension and pulmonary fibrosis as well as obstructive sleep apnea, hypoxia with respiratory failure, coronary disease, diabetes, hypertension, and hyperlipidemia, et al. He does take 12 L of oxygen at baseline. He stopped using his nasal cannula and switch to a mask because it was more comfortable for him. Physical Examination: Patient is afebrile and vitals are unremarkable except for a heart rate of 111. The patient is alert and oriented. Making jokes. Pleasant and in no acute distress. HEENT exam unremarkable. Heart tachycardic but regular. Lungs diminished in all pepper. No wheezing. Abdomen soft. Extremities show symmetric edema which is very much improved per the patient. Calves are nontender. Skin appears normal. Test Results: EKG showed sinus rhythm at a rate of 109. He has nonspecific ST and T wave changes but no acute ischemia or infarction pattern. Chest x-ray showed improved coronary edema. White count 9.5 and platelets 96. Patient has a history of anemia and thrombocytopenia. Metabolic panel unremarkable. Glucose normal. Troponin normal. BNP normal. Emergency Department Course and Treatment: Patient's PCP called prior to his arrival. She was concerned that he was having worsening breathing issues. Patient says that his breathing has been better than it has been recently. He is on his normal oxygen and has no new or different symptoms. He was concerned about his hypoglycemia. Patient was observed for over 4 hours in the emergency department. He has reached the peak of his quick acting insulin. His repeat blood sugar was in the 160s. There is nothing to suggest that his glucose will drop any further. His blood work is stable or improved. From a respiratory standpoint, he has no sign of heart failure, infection. No new or worsening symptoms. I do not believe he will benefit from hospitalization or any further diagnostic testing. I paged his primary care doctor, but at the time of this dictation, I have not heard back. Patient will be discharged home. He has help with his care at home. He has no further concerns or issues at this time. Treatment Plan: As above Disposition: Discharge Impression: 1. Hypoglycemia This note was generated with [employer] dictation software. It may contain incorrect words, spelling, and punctuation that were not noted in review of the chart prior to signing ED Disposition - Plan for ED Patient: Referrals: Flory Pantoja MD [Primary Care Provider] -
--- NOTE | 2018-08-09 22:41 | ED.DEP ---
ED Disposition - Plan for ED Patient: Instructions: ED Diabetes Hypoglycemia Insulin React Referrals: Flory Pantoja MD [Primary Care Provider] -
[2018-08-09 23:06] VITALS: BP 135/57; PULSE 108; RESP 30; O2SAT 96
--- NOTE | 2018-08-09 23:11 | ED.RN ---
TRANSPORT BY [facility] AT 0630
[2018-08-10 01:39] VITALS: BP 144/79; PULSE 100; RESP 24
[2018-08-10 04:09] VITALS: BP 162/77; PULSE 110; RESP 28; O2SAT 98
[2018-08-10 05:38] VITALS: BP 162/77; PULSE 115; RESP 30; O2SAT 92
[2018-08-10] MEDS: Mag Hydrox/Al Hydrox/Simeth 30 ML UDC PO (07:06)
--- NOTE | 2018-08-10 07:33 | ED.RN ---
PT UNABLE TO BE TRANSPORTED DUE TO RESPIRATORY DISTRESS. SOCIAL WORK CONSULT INITIATED BY CRESCENCIO KERN. PT PUT BACK ON MONITOR AND INFORMED OF DELAY IN DISCHARGE. PT RESTING COMFORTABLY AND DENIES FURTHER NEEDS AT THIS TIME.
[2018-08-10 07:35] VITALS: BP 139/81; PULSE 106; RESP 17; O2SAT 98
[2018-08-10 09:07] VITALS: BP 136/69; PULSE 101; RESP 20; O2SAT 96
--- NOTE | 2018-08-10 09:15 | CASEMGMT ---
Social Work: Social Work consult to assist with arranging assistance in the home. Spoke with ED RN and reviewed chart for pertinent information. Patient was recently hospitalized at [facility] and was discharged to [facility] on July 19, 2018. Patient lives at home with who has medical issues as well. Patient presented to [facility] ED last night for hypoglycemia and was stabilized. This morning transportation was arranged to pick patient up but on arrival of [facility], patient was having difficulty breathing so decision was made for patient to remain in the ED for Social Work consult. Met with patient in ED room 1.
--- NOTE | 2018-08-10 09:15 | CASEMGMT ---
Social Work: Social Work consult to assist with arranging for assistance in the home. Spoke with ED RN and chart review completed. Per, chart documentation, patient was recently hospitalized at [facility] and was discharged to [facility] on July 21, 2018. Patient lives with who also has medical issues. Per ED RN patient presented to ED last night for hypoglycemia and was stabilized. Transportation was arranged through [facility] for this morning but when transport arrived, patient could not be transported due to difficulty breathing. Met with patient in ED room 1. Patient states that he lives with his who is has physical disabilities. Patient states that his has an aid who assists her in the home. Per patient he does not want to go back to [facility] because he cannot pay the co pay. Patient verbalizes wish to return home with . This SW inquired as to who will assist patient in the home and patient states call my she can tell you all of that. TC to patient's , Caitlyn, with patient's permission. Patient's states that patient has been home from [facility] since (08/06). Patient's indicating that patient has been total care since D/C and has not gotten out of bed. Patient's states that she knows that patient wants to come home home and not return to a SNF and she is supportive of this stating I think he is giving up and wants to at home. This SW broached the topic of hospice with and is agreeable to a hospice consult. Patient's aware that this will also need to be discussed with patient. Spoke with patient again. Patient is agreeable to hospice consult and is aware that hospice will evaluate him in the ED. Dr. Green aware and agreeable to plan for hospice to consult. SW to follow to assist as needed. ROBE Graf
--- NOTE | 2018-08-10 10:42 | CASEMGMT ---
Social Work: TC to [facility]. Spoke with Hector. Hector requesting clinicals and states that Juany (liaison) and Juany (RN) will be over soon to assess patient for appropriateness for hospice care. Clinicals faxed. Spoke with patient in ED room and by phone. Both aware that hospice will be here soon to evaluate. SW to follow. ROBE Graf
--- NOTE | 2018-08-10 12:06 | CASEMGMT ---
Social work: Spoke with Juany RN from [facility] hospice. Patient agreeable to enrollment onto hospice services. Patient to be admitted to [facility] inpatient unit for symptom management. Juany states that is also aware and agreeable. Transportation scheduled and will pick patient up within the hour. PLAN: Patient to be discharged to [facility] for symptom management. ROBE Graf
== END 2018-08-10 11:31 | disposition short-term general hospital (02) ==
PROVIDERS: Emergency Provider Emergency Medicine; Family Provider Internal Medicine; PCP Internal Medicine
DX: T38.3X1A Poisoning by insulin and oral hypoglycemic [antidiabetic] drugs, accidental (unintentional), initial encounter (principal); E11.649 Type 2 diabetes mellitus with hypoglycemia without coma; Z79.4 Long term (current) use of insulin; Y92.009 Unspecified place in unspecified non-institutional (private) residence as the place of occurrence of the external cause; I27.20 Pulmonary hypertension, unspecified; I25.10 Atherosclerotic heart disease of native coronary artery without angina pectoris; I10 Essential (primary) hypertension; J96.91 Respiratory failure, unspecified with hypoxia; J84.10 Pulmonary fibrosis, unspecified; G47.33 Obstructive sleep apnea (adult) (pediatric); E78.5 Hyperlipidemia, unspecified; K21.9 Gastro-esophageal reflux disease without esophagitis; D64.9 Anemia, unspecified; D69.6 Thrombocytopenia, unspecified; Z99.81 Dependence on supplemental oxygen; Z79.82 Long term (current) use of aspirin; Z79.899 Other long term (current) drug therapy; Z87.891 Personal history of nicotine dependence
CPT/HCPCS: 71045; 80048; 82962; 83880; 84484; 85025; 93005; 99285; J7030; A4216